=== PATIENT | female | born 1970 | race Two or more races ===

== ENCOUNTER → 2020-07-05 10:41 | Outpatient (BNVA) | payer MEDICAID, SELFPAY | PROVIDERS: PCP Internal Medicine; Referring Provider Internal Medicine; Visit Provider Internal Medicine Gastroenterology | DX: Z01.818 Encounter for other preprocedural examination (principal); R14.0 Abdominal distension (gaseous); R10.9 Unspecified abdominal pain; K76.0 Fatty (change of) liver, not elsewhere classified | CPT/HCPCS: 99212 ==

== ENCOUNTER → 2020-07-23 08:10 | Outpatient (BNVA) | payer MEDICAID, SELFPAY | PROVIDERS: PCP Internal Medicine; Referring Provider Internal Medicine; Visit Provider Surgery | DX: Z76.89 Persons encountering health services in other specified circumstances (principal) ==

== ENCOUNTER → 2020-07-27 10:51 | Outpatient (BNVA) | payer MEDICAID, SELFPAY | PROVIDERS: PCP Internal Medicine; Visit Provider Surgery | DX: Z76.89 Persons encountering health services in other specified circumstances (principal) ==

== ENCOUNTER → 2020-08-04 13:44 | Outpatient (BNVA) | payer MEDICAID, SELFPAY | PROVIDERS: PCP Internal Medicine; Visit Provider Physician Assistant | DX: Z76.89 Persons encountering health services in other specified circumstances (principal) ==

== ENCOUNTER → 2020-08-20 08:04 | Outpatient (BNVA) | payer MEDICAID, SELFPAY | PROVIDERS: PCP Internal Medicine; Referring Provider Internal Medicine; Visit Provider Surgery | DX: Z76.89 Persons encountering health services in other specified circumstances (principal) ==

== ENCOUNTER → 2020-08-27 08:33 | Outpatient (BNVA) | payer MEDICAID, SELFPAY | PROVIDERS: PCP Internal Medicine; Referring Provider Internal Medicine; Visit Provider Dietitian, Registered | DX: Z76.89 Persons encountering health services in other specified circumstances (principal) ==

== ENCOUNTER 2020-09-01 08:57 | Outpatient (REF) | payer MEDICAID, SELFPAY ==
--- NOTE | 2020-09-01 09:01 | US_ITS ---
EXAMINATION: US COMPLETE ABDOMEN WITH LIVER ELASTOGRAPHY CLINICAL INFORMATION: Obesity COMPARISON: Previous exam February 2019 TECHNIQUE: Real-time imaging of the abdominal viscera. Noninvasive ultrasound liver fibrosis assessment is performed using Marilou ElastPQ point quantification shear wave elastography (pSWE) with a 5 MHz transducer. Multiple elastography samples are obtained. FINDINGS: PANCREAS: Normal. The visualized pancreatic head and body are normal in appearance. The remainder of the pancreas is obscured from visualization by the overlying bowel gas. ABDOMINAL AORTA: The proximal, middle, and distal aortic segments are normal in caliber. INFERIOR VENA CAVA: Visualized portions are normal. LIVER: Liver echotexture is increased. The liver is normal in size and contour.. No focal lesion or intrahepatic biliary duct dilatation. The right lobe measures 15.8 cm in length. The left lobe measures 8.8 cm in length. The main portal vein is patent with appropriate hepatopedal flow. Shear wave elastography provides a median stiffness of 1.2 m/s (reference: normal median stiffness is 0.81 - 1.22 m/s). The IQR/median stiffness to assess sampling precision is 0.2 (reference: optimal IQR/median stiffness is under 0.3). GALLBLADDER: Normal. The gallbladder is physiologically distended without evidence of stones, sludge, polyps, wall thickening or pericholecystic fluid. COMMON BILE DUCT: Normal in caliber measuring 0.4 cm in diameter. RIGHT KIDNEY: There is a cyst in the lower pole that measures 4.8 x 4.7 x 4.3 cm. No hydronephrosis. No renal calculi. The kidney measures 10.6 cm in maximum dimension. LEFT KIDNEY: Normal. No hydronephrosis. No renal calculi or focal parenchymal lesions. The kidney measures 10.8 cm in maximum dimension. SPLEEN: Normal. The spleen measures 9.7 cm in maximum dimension. FREE FLUID: None. US/US abdomen comp w elastography IMPRESSION: 1. Impression: Echogenic liver probably representing fatty infiltration. Right renal cyst. 2. Elastography: Metavir score F0 suggestive of no increased risk of developing liver fibrosis.
--- NOTE | 2020-09-01 09:01 | XR_ITS ---
EXAMINATION: XR CHEST CLINICAL INFORMATION: Obesity COMPARISON: Previous chest x-ray May 2020 TECHNIQUE: 2 views of the chest were obtained. FINDINGS: The cardiac and mediastinal contours are normal. The lungs are clear. There is no pleural effusion or pneumothorax. There are degenerative changes of the spine. There is evidence of old trauma to the right distal clavicle with AC separation and ossification along the coracoclavicular ligament that is unchanged. XR/XR chest 2V IMPRESSION: No evidence for acute disease in the chest. Evidence of old trauma to the right clavicle similar to previous exam.
--- NOTE | 2020-09-01 09:01 | FL_ITS ---
EXAMINATION: XR GI SERIES CLINICAL INFORMATION: Obesity COMPARISON: None TECHNIQUE: Upper GI was performed using thin and thick barium and effervescent granules. FINDINGS: Esophageal motility is normal. No esophageal hernia is seen. There is gastroesophageal reflux. The stomach and duodenum are normal-appearing. No fold thickening, mass, ulcer or stricture is seen. FLUOROSCOPY TIME: 0.9 minutes DOSE AREA PRODUCT: 11 bey per centimeter squared. 27 saved fluoroscopic images FL/FL upper GI series IMPRESSION: Gastroesophageal reflux otherwise unremarkable exam
== END 2020-09-01 08:58 | disposition home or self-care (01) ==
LOC: HO.US 08:57
PROVIDERS: Visit Provider Surgery
DX: Z01.818 Encounter for other preprocedural examination (principal); K76.0 Fatty (change of) liver, not elsewhere classified; E66.01 Morbid (severe) obesity due to excess calories; K21.9 Gastro-esophageal reflux disease without esophagitis
CPT/HCPCS: 71046; 74240; 76705; 76981

== ENCOUNTER 2020-09-16 09:43 | Day surgery (SDC) | payer MEDICAID, SELFPAY ==
[2020-09-09 10:12] VITALS: BMI 40.6
--- NOTE | 2020-09-14 14:18 | HO.ANESPROP2 ---
Documented by User: Aide Mcnair 09/14/20 14:18 HPI - Anesthesia Eval Consult details Narrative: 50yo F for Colonoscopy [facility] Past Medical History Medical History Cigarette smoker Hepatic steatosis Obesity (BMI 30-39.9) Screening for colon cancer Family History Family History Brother Cancer Father Diabetes Mother Diabetes HTN (hypertension) Heart problem Family/Other Diabetes Surgical History Surgical History Hx of tonsillectomy Morbid obesity Social History Social History Alcohol intake: current Alcohol intake frequency: does not drink Smoking Status: Current every day smoker Tobacco Type: Cigarette Packs Per Day: 0.5 Cigarettes Per Day: 10.0 Advance Directives: No Advance Directives Information Provided: Yes Meds Allergies Allergy/AdvReac Type Severity Reaction Status Date / Time No Known Allergies [NKA] Allergy Verified 07/27/20 12:43 Home Medications Medication Instructions Recorded Confirmed Type magnesium oxide 400 mg PO DAILY 07/05/20 07/27/20 History acetaminophen 650 mg 650 mg PO Q8H 07/27/20 07/27/20 History tablet,extended release cyclobenzaprine 10 mg tablet 10 mg PO TID 07/27/20 07/27/20 History hydroxyzine HCl 25 mg tablet 25 mg PO BEDTIME 07/27/20 07/27/20 History Exam Exam Date and Time: September 14, 2020 1418 Height,Weight and Vital Signs: Height 5 ft 2 in Weight 100.698 kg Assessment and Plan Assessment Anesthesia Assessment: Chart Reviewed Documented by User: Bibi Traore 09/16/20 10:14 [facility] Past Medical History Medical History Cigarette smoker Hepatic steatosis Obesity (BMI 30-39.9) Screening for colon cancer Family History Family History Brother Cancer Father Diabetes Mother Diabetes HTN (hypertension) Heart problem Family/Other Diabetes Surgical History Surgical History Hx of tonsillectomy Morbid obesity Social History Social History Alcohol intake: current Alcohol intake frequency: does not drink Smoking Status: Current every day smoker Tobacco Type: Cigarette Packs Per Day: 0.5 Cigarettes Per Day: 10.0 Advance Directives: No Advance Directives Information Provided: Yes Meds Allergies Allergy/AdvReac Type Severity Reaction Status Date / Time No Known Allergies [NKA] Allergy Verified 07/27/20 12:43 Home Medications Medication Instructions Recorded Confirmed Type magnesium oxide 400 mg PO DAILY 07/05/20 07/27/20 History acetaminophen 650 mg 650 mg PO Q8H 07/27/20 07/27/20 History tablet,extended release cyclobenzaprine 10 mg tablet 10 mg PO TID 07/27/20 07/27/20 History hydroxyzine HCl 25 mg tablet 25 mg PO BEDTIME 07/27/20 07/27/20 History Exam Airway Mallampati Class: II TM Dist: >3cm Loose/Missing/Broken Teeth: No Heart: RRR Lungs: CTA Assessment and Plan Assessment Anesthesia Assessment: Anesthesia Plan Discussed and Chart Reviewed Final Anesthetic Review NPO: Yes ASA Class: II Final Preanesthetic Review: Meds/Allgs Chart Reviewed, Consent Obtained/Reviewed and Anes Risks/Benef Reviewed Patient Risk: Intermediate Procedure Risk: Low Anesthetic Plan Anesthetic Plan: MAC: Disposition: Standard PACU
--- NOTE | 2020-09-16 10:11 | MHC.SHP ---
Pre-Procedural Eval Section B Chief Complaint: Abdominal Distension, Screening Details of Present Illness: Colon Cancer screening Relevant Family History (Specify if Yes): No Relevant Social History: Tobacco Use (1/2ppd) Present Medications: see Short Stay Collaborative assessment Medical History: Significant History (Cigarette smoker, Morbid Obesity, Hepatic steatosis) History of Previous Operations: No relevant previous surgery Allergies: Allergies Allergy/AdvReac Type Severity Reaction Status Date / Time No Known Allergies [NKA] Allergy Verified 07/27/20 12:43 Review of Systems Sugical H&P ROS: Negative: Constitution, Cardiovascular, Respiratory and Gastrointestinal Exam Surgical H&P Exam: Normal: HEENT, Normal: Heart, Normal: Lungs and Normal: Extremities and Significant Findings: Abdomen (Central obesity) Plan Diagnosis/Plan: Unchanged I have reviewed the history and physical and performed a pertinent physical examination on my patient. No changes have occurred unless specified.YES
[2020-09-16 10:13] LABS: Glucose, Whole Blood 111 mg/dL (60-115)
[2020-09-16 10:16] VITALS: BP 125/76; PULSE 90; RESP 18; TEMP 36.2; O2SAT 97
[2020-09-16] MEDS: Lactated Ringers 1,000 ML 100 ML IVCONT (10:21)
--- NOTE | 2020-09-16 11:06 | PM.PROC ---
Brief Operative Note Date of procedure: 09/16/20 Pre-op diagnosis: COLON CANCER SCREENING Post-op diagnosis: other (COLON POLYPS) Procedure: COLONOSCOPY WITH EPI INJECTION TOTAL 7 CC,--2 LOCATIONS--HOT SNARE POLYPECTOMY X2 REMOVED AND RETRIEVED. Anesthesia: MAC (SUGEY RICKETTS) Surgeon: Lindsay Ann Estimated blood loss (mL): 10 Pathology: other (18CM; 13CM) Condition: stable Disposition: PACU
[2020-09-16 11:08] VITALS: BP 106/81; PULSE 102; RESP 16; TEMP 36.1; O2SAT 95
[2020-09-16 11:23] VITALS: BP 108/60; PULSE 92; RESP 16; TEMP 36.4; O2SAT 96
--- NOTE | 2020-09-18 11:46 | OP_ITS ---
SURGEON: Lindsay Ann MD INDICATIONS: The patient is preoperatively seen for colon cancer screening, non high-risk. POSTOPERATIVE DIAGNOSIS: Polyps, colonic ESTIMATED BLOOD LOSS: Less than 10 mL. COMPLICATIONS: No complications. ANESTHESIA: Monitored, ANESTHESIOLOGIST: Juan M Zamorano CRNA. ASSISTANTS: No technology assistant. SPECIMENS: Removed 18 cm polyp, 13 cm polyp. IV TECHNICIAN: Dr. Ann. PROCEDURES PERFORMED: Colonoscopy with epinephrine injection submucosally, total 7 mL in 2 locations, hot snare polypectomy x2. CONDITION: Postop, stable. FINDINGS: Digital rectal exam revealed no specific lesion. Video colonoscope was introduced without difficulty. It was navigated into the rectosigmoid sigmoid in progress through sigmoid, descending, transverse, ascending colon down into the cecum. Appendiceal orifice was seen. Ileocecal valve was well seen. No mucosal abnormalities were appreciated. Prep for this procedure was good to excellent. Slow withdrawal of scope. Good rotational views. Polyp was identified at 18 cm with variable cryptic pattern. Submucosal epinephrine injection and a hot snare polypectomy technique were used to be remove polyp. Similar polyp at 13 cm was removed as well. The bases of both polyps were clear. No additional lesions were seen. Anorectal verge was clear. PLAN AND CURRENT RECOMMENDATIONS: Repeat asymptomatic screening in this patient will be 5 years even if these are hyperplastic polyps because of the variable nature of the cryptic pattern in these polyps. GRAFT OR IMPLANTS: No grafts or implants. Lindsay Ann MD MEN/MODL / [id number] MTDD
== END 2020-09-16 12:51 | disposition home or self-care (01) ==
PROVIDERS: PCP Internal Medicine; Visit Provider Internal Medicine Gastroenterology
PROC: 0DJD8ZZ Inspection of Lower Intestinal Tract, Via Natural or Artificial Opening Endoscopic (ICD-10-PCS; CPT 45378; principal; 2020-09-16 11:10)
DX: Z12.11 Encounter for screening for malignant neoplasm of colon (principal); R14.0 Abdominal distension (gaseous); K63.5 Polyp of colon; K76.0 Fatty (change of) liver, not elsewhere classified; F17.210 Nicotine dependence, cigarettes, uncomplicated; Z79.899 Other long term (current) drug therapy
CPT/HCPCS: 45385; 45381; 82947; 88305; J0171

== ENCOUNTER → 2020-09-20 08:25 | Outpatient (BNVA) | payer MEDICAID, SELFPAY | PROVIDERS: PCP Internal Medicine; Visit Provider Surgery | DX: Z76.89 Persons encountering health services in other specified circumstances (principal) ==

== ENCOUNTER → 2020-09-24 08:09 | Outpatient (BNVA) | payer MEDICAID, SELFPAY | PROVIDERS: PCP Internal Medicine; Visit Provider Dietitian, Registered | DX: Z76.89 Persons encountering health services in other specified circumstances (principal) ==

== ENCOUNTER → 2020-10-08 08:29 | Outpatient (BNVA) | payer MEDICAID, SELFPAY | PROVIDERS: PCP Internal Medicine; Visit Provider Surgery ==

== ENCOUNTER → 2020-10-20 13:29 | Outpatient (BNVA) | payer MEDICAID, SELFPAY | PROVIDERS: PCP Internal Medicine; Visit Provider Nurse Practitioner Family ==

== ENCOUNTER → 2020-10-29 08:26 | Outpatient (BNVA) | payer MEDICAID, SELFPAY | PROVIDERS: PCP Internal Medicine; Visit Provider Dietitian, Registered ==

== ENCOUNTER 2020-11-24 08:53 | Emergency (ER) | payer MEDICAID, SELFPAY ==
[2020-11-24 08:59] VITALS: BP 109/57; PULSE 74; RESP 20; TEMP 36.7; O2SAT 98; BMI 42.0
--- NOTE | 2020-11-24 09:06 | ED.PSYCH ---
HPI - Psych General Chief Complaint: Chest Pain Stated Complaint: anxiety x1week Time Seen by Provider: 11/24/20 09:03 Source: patient Mode of arrival: ambulatory Limitations: no limitations History of Present Illness HPI Narrative: Patient with increased stress and anxiety no known cardiac history began complaining of chest pain off and on and on exertion with increased shortness of breath Related Data Home Medications Medication Instructions Recorded Confirmed acetaminophen 650 mg 650 mg PO Q8H 07/27/20 10/20/20 tablet,extended release cyclobenzaprine 10 mg tablet 10 mg PO TID 07/27/20 07/27/20 hydroxyzine HCl 25 mg tablet 25 mg PO BEDTIME 07/27/20 10/20/20 Previous Rx's Medication Instructions Recorded vitamin E (dl, acetate) 400 unit 400 unit PO BID 30 Days #60 cap 07/28/20 capsule bisacodyl 5 mg tablet,delayed 10 mg PO ONCE 1 Days #2 tab 08/30/20 release polyethylene glycol 3350 17 238 g PO ONCE 1 Days #238 g 08/30/20 gram/dose oral powder docusate sodium 100 mg capsule 100 mg PO DAILY #30 cap 10/20/20 magnesium oxide 400 mg PO DAILY #30 cap 10/20/20 omeprazole 20 mg capsule,delayed 20 mg PO DAILY #30 cap 10/20/20 release simethicone 125 mg capsule 125 mg PO TID-QID PRN #120 cap 10/20/20 Allergies Allergy/AdvReac Type Severity Reaction Status Date / Time No Known Allergies [NKA] Allergy Verified 10/20/20 13:30 [facility] Past Medical History Medical History Chronic idiopathic constipation Cigarette smoker Hepatic steatosis Obesity (BMI 30-39.9) Screening for colon cancer Surgical History H/O colonoscopy Hx of tonsillectomy Morbid obesity Family History Family History Brother Cancer Father Diabetes Mother Diabetes HTN (hypertension) Heart problem Family/Other Diabetes Social History Social History (Updated 10/20/20 @ 13:32 by Alissa Vargas) Household Members: Children Alcohol intake: current Alcohol intake frequency: does not drink Smoking Status: Current every day smoker Tobacco Type: Cigarette Packs Per Day: 0.5 Cigarettes Per Day: 10.0 Advance Directives: No Advance Directives Information Provided: Yes Physical Exam Vital Signs: Vital Signs: Last Vital Signs Temp 98.0 F 11/24/20 08:59 Pulse 74 11/24/20 08:59 Resp 20 11/24/20 08:59 BP 109/57 L 11/24/20 08:59 Pulse Ox 98 11/24/20 08:59 Body Mass Index 42.0 MDM - Psych Medical Records Attestation: I reviewed the patient's medical records. Lab Data Attestation: I reviewed the patient's lab results. Result diagrams: 11/24/20 09:33 11/24/20 09:33 Labs: Lab Results 11/24/20 Range/Units 09:33 WBC 6.3 (4.8-10.8) X10*3/uL RBC 4.15 L (4.20-5.50) X10*6/uL Hgb 12.9 (12.0-16.0) g/dl Hct 39.5 (37-47) % MCV 95.2 (80-98) fL MCH 31.1 (27.0-33.0) pg MCHC 32.7 (31.0-35.0) g/dl RDW 11.9 (11.0-16.0) % Plt Count 141 L (160-400) X10*3/uL MPV 13.2 H (9.4-12.3) fL Immature Gran % (Auto) 0.2 (0.0-0.4) % Neut % (Auto) 47.2 (45-73) % Lymph % (Auto) 42.7 H (20-40) % [place] % (Auto) 8.2 (2-11) % Eos % (Auto) 1.4 (0-4) % Baso % (Auto) 0.3 (0-2) % Lymph # (Auto) 2.7 (1.2-4.9) X10*3/uL [place] # (Auto) 0.5 (0.1-1.2) X10*3/uL Eos # (Auto) 0.1 (0.0-0.4) X10*3/uL Baso # (Auto) 0.0 (0.0-0.2) X10*3/uL Abs Immat Gran (auto) 0.01 (0.00-0.03) X10*3/uL Absolute Neuts (auto) 3.0 (2.0-8.3) X10*3/uL Absolute Nucleated RBC 0.000 (0.0-0.012) X10*3/uL Nucleated RBC % (auto) 0.0 (0.0-0.2) /100WBC Smear Tech's Comments VERIFIED ECG Data Attestation: I personally reviewed and interpreted this ECG as follows: Interpretation: Normal sinus rhythm heart rate of 70 beats per minute normal intervals and normal axis no acute ischemia Discharge Plan Discharge Prescriptions: No Action vitamin E (dl, acetate) 400 unit capsule 400 unit PO BID 30 Days Qty: 60 RF: 3 bisacodyl [Dulcolax (bisacodyl)] 5 mg tablet,delayed release (DR/EC) 10 mg PO ONCE 1 Days Qty: 2 RF: 0 polyethylene glycol 3350 [Miralax] 17 gram/dose powder 238 g PO ONCE 1 Days Qty: 238 RF: 0 simethicone [Gas Relief (simethicone)] 125 mg capsule 125 mg PO TID-QID PRN (Reason: abdominal distention) Qty: 120 RF: 2 omeprazole 20 mg capsule,delayed release(DR/EC) 20 mg PO DAILY Qty: 30 RF: 3 magnesium oxide 400 mg magnesium capsule 400 mg PO DAILY Qty: 30 RF: 2 docusate sodium 100 mg capsule 100 mg PO DAILY Qty: 30 RF: 3 cyclobenzaprine 10 mg tablet 10 mg PO TID RF: 0 hydroxyzine HCl 25 mg tablet 25 mg PO BEDTIME RF: 0 acetaminophen [Mapap Arthritis Pain] 650 mg tablet extended release 650 mg PO Q8H RF: 0
--- NOTE | 2020-11-24 09:15 | ECG_ITS ---
Test Reason : CHEST PAIN Blood Pressure : / mmHG Vent. Rate : 070 BPM Atrial Rate : 070 BPM P-R Int : 100 ms QRS Dur : 076 ms QT Int : 386 ms P-R-T Axes : 036 035 061 degrees QTc Int : 416 ms Sinus rhythm with short [place] Otherwise normal ECG When compared with ECG of 24-MAY-2020 15:35, [place] interval has decreased Nonspecific T wave abnormality no longer evident in Anterior leads Referred By: Justin Saxena Electronically Signed By:FELISHA JACKSON MD
[2020-11-24 09:43] LABS: Basophils Percent Auto 0.3 % (0-2); Eosinophils Absolute Auto 0.1 X10*3/uL (0.0-0.4); Imm Gran Abs Auto 0.01 X10*3/uL (0.00-0.03); Imm Gran Pct Auto 0.2 % (0.0-0.4); MANUAL DIFF FLAG SCAN; Mean Corpuscular HGB Conc 32.7 g/dl (31.0-35.0); Mean Corpuscular Hemoglobin 31.1 pg (27.0-33.0); Mean Platelet Volume 13.2 fL (9.4-12.3); SCAN SMEAR FLAG 1
[2020-11-24 09:45] LABS: Eosinophils Percent Auto 1.4 % (0-4); Hematocrit 39.5 % (37-47); Hemoglobin 12.9 g/dl (12.0-16.0); Lymphocytes Absolute Auto 2.7 X10*3/uL (1.2-4.9); Lymphocytes Percent Auto 42.7 % (20-40); Mean Corpuscular Volume 95.2 fL (80-98); Monocytes Absolute Auto 0.5 X10*3/uL (0.1-1.2); Monocytes Percent Auto 8.2 % (2-11); Neutrophils Percent Auto 47.2 % (45-73); Red Blood Count 4.15 X10*6/uL (4.20-5.50); Red Cell Distribution Width 11.9 % (11.0-16.0); White Blood Count 6.3 X10*3/uL (4.8-10.8)
[2020-11-24 09:46] LABS: PLT ABN DIST 1
[2020-11-24 10:02] LABS: Platelet Count 141 X10*3/uL (160-400); SLIDE REVIEW VERIFIED
[2020-11-24 10:14] LABS: Troponin-I High Sensitivity < 3.5 ng/L (<3.5-17.0)
[2020-11-24 10:17] LABS: Alanine Aminotransferase 29 U/L (0-31); Alkaline Phosphatase 74 U/L (39-117); Anion Gap 12 (12-20); Aspartate Amino Transferase 32 U/L (5-31); Bilirubin Direct < 0.2 mg/dL (0.0-0.5); Bilirubin Total 0.4 mg/dL (0.0-1.0); Blood Urea Nitrogen 15 mg/dL (9-16); Calcium 8.9 mg/dL (8.4-10.2); Carbon Dioxide 24 mmol/L (22-29); Chloride 108 mmol/L (96-108); Creatinine Clr Calc Pharmacy 64.6; Estimated Glomerular Filt Rate 48; Glucose Random 118 mg/dL (60-115); Lipase 65 U/L (8-78); Potassium 4.3 mmol/L (3.3-5.1); Sodium 140 mmol/L (135-145); Total Protein 6.9 g/dL (6.5-8.0)
[2020-11-24 10:23] LABS: B Type Natriuretic Peptide 18 pg/mL (<100)
--- NOTE | 2020-11-24 10:56 | ED.CHESTPAIN ---
HPI - Chest Pain General Chief Complaint: Chest Pain Stated Complaint: anxiety x1week Time Seen by Provider: 11/24/20 09:03 Source: patient Mode of arrival: ambulatory Limitations: no limitations History of Present Illness HPI narrative: Patient no known cardiac disease history gastric reflux disease on Prilosec which she is not taking every day , comes here for midsternal chest pain shortly after eating for last 1 week patient had ultrasound done in 08/29 which was negative for gallstones. 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 patient also under lot of stress lately MD complaint: chest discomfort Onset (ago): week(s) (1) Timing of current episode: episodic Prior episodes: Yes Onset: during rest Pain location: substernal Pain radiation: none Severity: mild Quality: heaviness Risk Factors Coronary artery disease risk factors: none Related Data Home Medications Medication Instructions Recorded Confirmed acetaminophen 650 mg 650 mg PO Q8H 07/27/20 10/20/20 tablet,extended release cyclobenzaprine 10 mg tablet 10 mg PO TID 07/27/20 07/27/20 hydroxyzine HCl 25 mg tablet 25 mg PO BEDTIME 07/27/20 10/20/20 Previous Rx's Medication Instructions Recorded vitamin E (dl, acetate) 400 unit 400 unit PO BID 30 Days #60 cap 07/28/20 capsule bisacodyl 5 mg tablet,delayed 10 mg PO ONCE 1 Days #2 tab 08/30/20 release polyethylene glycol 3350 17 238 g PO ONCE 1 Days #238 g 08/30/20 gram/dose oral powder docusate sodium 100 mg capsule 100 mg PO DAILY #30 cap 10/20/20 magnesium oxide 400 mg PO DAILY #30 cap 10/20/20 omeprazole 20 mg capsule,delayed 20 mg PO DAILY #30 cap 10/20/20 release simethicone 125 mg capsule 125 mg PO TID-QID PRN #120 cap 10/20/20 Allergies Allergy/AdvReac Type Severity Reaction Status Date / Time No Known Allergies [NKA] Allergy Verified 10/20/20 13:30 Review of Systems Review of Systems: Constitutional : No Weight loss, No Fever, No Chills ENT/Mouth : No sore throat, No Rhinorrhea Eyes: No Eye Pain, No Swelling Cardiovascular : + Chest Pain, no palpitations Respiratory : No Cough, No Sputum, no shortness of breath Gastrointestinal : +Nausea, No Vomiting, No Diarrhea, No abdominal Pain, no black stools Genitourinary : No Dysuria, No Urinary Frequency Musculoskeletal : No joint pain, No Myalgias, No Joint Swelling Skin : No Skin Lesions, No rash Neuro : No Weakness, No Numbness, No Dizziness, No Headache Psych : No Anxiety/Panic, No Depression Heme/Lymph: No Bruising, No Lymphadenopathy Endocrine : No Polyuria, No Polydipsia All other systems reviewed and are negative [facility] Past Medical History Medical History Chronic idiopathic constipation Cigarette smoker Hepatic steatosis Obesity (BMI 30-39.9) Screening for colon cancer Surgical History H/O colonoscopy Hx of tonsillectomy Morbid obesity Family History Family History Brother Cancer Father Diabetes Mother Diabetes HTN (hypertension) Heart problem Family/Other Diabetes Social History Social History Household Members: Children Alcohol intake: current Alcohol intake frequency: does not drink Smoking Status: Current every day smoker Tobacco Type: Cigarette Packs Per Day: 0.5 Cigarettes Per Day: 10.0 Advance Directives: No Advance Directives Information Provided: Yes Physical Exam Vital Signs: Vital Signs: Last Vital Signs Temp 98.0 F 11/24/20 08:59 Pulse 74 11/24/20 08:59 Resp 20 11/24/20 08:59 BP 109/57 L 11/24/20 08:59 Pulse Ox 98 11/24/20 08:59 Body Mass Index 42.0 Appearance: Alert. Oriented X3. No acute distress. Anxious Eyes: Pupils equal, round and reactive to light. ENT: Pharynx normal. Neck: Normal inspection. Neck supple. CVS: Normal heart rate and rhythm. Pulses normal. Respiratory: No respiratory distress. Breath sounds normal. Abdomen: Soft and nontender. Bowel sounds are present, no mass palpable, no CVA tenderness Skin: Skin warm and dry. Normal skin color. Normal skin turgor. Extremities: No lower extremity edema. Neuro: Oriented X 3. No motor deficit. No sensory deficit. Course Course Course Narrative: Patient has atypical chest pain for last 1 week also complaining of shortness of breath on exertion will do the workup Patient workup is negative for any CHF cardiac enzymes are negative EKG without any acute ischemic changes patient has chronic gastric reflux problem. Will reassure patient to start taking Prilosec will add sucralfate. advised to follow with machine plug shaper MDM - Chest Pain Differential Diagnosis Differential diagnosis: Likely atypical chest pain Medical Records Data Attestation: I reviewed the patient's medical records. Lab Data Attestation: I reviewed the patient's lab results. Result diagrams: 11/24/20 09:33 11/24/20 09:33 Labs: Lab Results 11/24/20 11/24/20 11/24/20 Range/Units 09:33 09:33 09:33 WBC 6.3 (4.8-10.8) X10*3/uL RBC 4.15 L (4.20-5.50) X10*6/uL Hgb 12.9 (12.0-16.0) g/dl Hct 39.5 (37-47) % MCV 95.2 (80-98) fL MCH 31.1 (27.0-33.0) pg MCHC 32.7 (31.0-35.0) g/dl RDW 11.9 (11.0-16.0) % Plt Count 141 L (160-400) X10*3/uL MPV 13.2 H (9.4-12.3) fL Immature Gran % (Auto) 0.2 (0.0-0.4) % Neut % (Auto) 47.2 (45-73) % Lymph % (Auto) 42.7 H (20-40) % [place] % (Auto) 8.2 (2-11) % Eos % (Auto) 1.4 (0-4) % Baso % (Auto) 0.3 (0-2) % Lymph # (Auto) 2.7 (1.2-4.9) X10*3/uL [place] # (Auto) 0.5 (0.1-1.2) X10*3/uL Eos # (Auto) 0.1 (0.0-0.4) X10*3/uL Baso # (Auto) 0.0 (0.0-0.2) X10*3/uL Abs Immat Gran (auto) 0.01 (0.00-0.03) X10*3/uL Absolute Neuts (auto) 3.0 (2.0-8.3) X10*3/uL Absolute Nucleated RBC 0.000 (0.0-0.012) X10*3/uL Nucleated RBC % (auto) 0.0 (0.0-0.2) /100WBC Smear Tech's Comments VERIFIED Sodium 140 (135-145) mmol/L Potassium 4.3 (3.3-5.1) mmol/L Chloride 108 (96-108) mmol/L Carbon Dioxide 24 (22-29) mmol/L Anion Gap 12 (12-20) BUN 15 (9-16) mg/dL Creatinine 1.18 (0.5-1.4) mg/dL Estim Creat Clear Calc 64.6 Estimated GFR 48 Random Glucose 118 H (60-115) mg/dL Calcium 8.9 (8.4-10.2) mg/dL Total Bilirubin 0.4 (0.0-1.0) mg/dL Direct Bilirubin < 0.2 (0.0-0.5) mg/dL AST 32 H (5-31) U/L ALT 29 (0-31) U/L Alkaline Phosphatase 74 (39-117) U/L Troponin I High Sens < 3.5 (<3.5-17.0) ng/L B-Natriuretic Peptide 18 (<100) pg/mL Total Protein 6.9 (6.5-8.0) g/dL Albumin 4.0 (3.5-5.0) g/dL Lipase 65 (8-78) U/L ECG Data ECG #1: Attestation: I personally reviewed and interpreted this ECG as follows: Interpretation: Normal sinus rhythm heart rate 70 beats per minute normal intervals normal axis no acute ST T wave changes impression no acute ischemia Discharge Plan Discharge Prescriptions: No Action vitamin E (dl, acetate) 400 unit capsule 400 unit PO BID 30 Days Qty: 60 RF: 3 bisacodyl [Dulcolax (bisacodyl)] 5 mg tablet,delayed release (DR/EC) 10 mg PO ONCE 1 Days Qty: 2 RF: 0 polyethylene glycol 3350 [Miralax] 17 gram/dose powder 238 g PO ONCE 1 Days Qty: 238 RF: 0 simethicone [Gas Relief (simethicone)] 125 mg capsule 125 mg PO TID-QID PRN (Reason: abdominal distention) Qty: 120 RF: 2 omeprazole 20 mg capsule,delayed release(DR/EC) 20 mg PO DAILY Qty: 30 RF: 3 magnesium oxide 400 mg magnesium capsule 400 mg PO DAILY Qty: 30 RF: 2 docusate sodium 100 mg capsule 100 mg PO DAILY Qty: 30 RF: 3 cyclobenzaprine 10 mg tablet 10 mg PO TID RF: 0 hydroxyzine HCl 25 mg tablet 25 mg PO BEDTIME RF: 0 acetaminophen [Mapap Arthritis Pain] 650 mg tablet extended release 650 mg PO Q8H RF: 0
[2020-11-24] MEDS: Omeprazole 40 MG CAPSULE.DR PO (11:35)
[2020-11-24] MEDS: Magnesium Hydrox/Alum Hydrox 30 ML ORAL.SUSP PO (11:35)
== END 2020-11-24 11:45 | disposition home or self-care (01) ==
PROVIDERS: Emergency Provider Internal Medicine; PCP Internal Medicine
DX: R07.89 Other chest pain (principal); K21.9 Gastro-esophageal reflux disease without esophagitis; Z79.899 Other long term (current) drug therapy; F17.210 Nicotine dependence, cigarettes, uncomplicated
CPT/HCPCS: 36415; 80048; 80076; 83690; 83880; 84484; 85025; 93005; 99283

== ENCOUNTER 2020-12-06 21:27 | Emergency (ER) | payer MEDICAID, SELFPAY ==
--- NOTE | ~2020-12-06 | CT_ITS ---
EXAMINATION: CT ABDOMEN AND PELVIS WITHOUT CONTRAST CLINICAL INFORMATION: Abdominal pain COMPARISON: Abdominal ultrasound 09/01/2020 TECHNIQUE: Multidetector volumetric imaging was performed from the superior aspect of the liver through the pubic symphysis. Sagittal and coronal reformatted images were obtained on the technologist's workstation. This CT examination was performed using dose optimization techniques as appropriate, variously including the following: *Automated exposure control *Adjustment of mA and/or kV according to patient size (this includes techniques or standardized protocols for targeted exams where dose is matched to indication/reason for exam; i.e. extremities or head) *Use of iterative reconstruction technique DLP: 785 mGy-cm FINDINGS: LUNG BASES: Some chronic reticulonodular findings are present at the lung bases with lingular and right middle lobe atelectasis or scarring. No pleural effusions are seen. LIVER, GALLBLADDER, AND BILIARY TREE: The liver is normal in size, shape, and attenuation. No focal hepatic lesion or biliary ductal dilatation is present. The gallbladder is contracted but otherwise unremarkable with no evidence of radiopaque gallstones, gallbladder wall thickening, or obvious pericholecystic inflammatory changes. PANCREAS: Unremarkable. SPLEEN: Unremarkable. ADRENAL GLANDS: Unremarkable. KIDNEYS AND URETERS: The kidneys are normal in size, shape, and attenuation. A 5.7 cm right lower pole renal cyst is present. No hydronephrosis, hydroureter, or calculi seen. No perinephric stranding. BLADDER: Unremarkable. . GASTROINTESTINAL TRACT: A small hiatal hernia is present. In the sigmoid colon, there is an area of marked mucosal thickening and inflammatory changes extending from the colon tethering some small bowel loops with tenting of the adnexa. Findings are consistent with acute diverticulitis. An underlying neoplasm cannot be entirely excluded and follow-up imaging/colonoscopy is recommended after treatment. No extraluminal air is seen. A small amount of free fluid is present in the pelvis. No pericolonic abscess is identified. The small and large bowel are unremarkable. The appendix is unremarkable. ABDOMINAL WALL: No significant hernia is appreciated. LYMPH NODES: Some small pericolonic lymph nodes are seen but there is no retroperitoneal lymphadenopathy. Small bilateral inguinal nodes are present as well. VASCULAR: Unremarkable. PELVIC VISCERA: A retroverted uterus is present. An abnormal adnexal mass is not seen. A small amount of free fluid is present in the pelvis. OSSEOUS STRUCTURES: Unremarkable. CT/CT abdomen pelvis wo con IMPRESSION: Thickened segment of sigmoid with marked inflammatory changes and some diverticula are seen. Findings are suggestive of acute diverticulitis. No extraluminal air or surrounding abscess is seen. A small amount of free fluid is present in the cul-de-sac. Other incidental findings as described above.
[2020-12-06 21:57] VITALS: BP 131/73; BP 138/86; PULSE 80; PULSE 89; RESP 14; TEMP 36.6; O2SAT 99; BMI 42.0
[2020-12-06 22:19] LABS: MANUAL DIFF FLAG NO
[2020-12-06 22:21] LABS: Basophils Percent Auto 0.2 % (0-2); Eosinophils Absolute Auto 0.1 X10*3/uL (0.0-0.4); Eosinophils Percent Auto 1.2 % (0-4); Hematocrit 37.7 % (37-47); Hemoglobin 12.1 g/dl (12.0-16.0); Imm Gran Abs Auto 0.04 X10*3/uL (0.00-0.03); Imm Gran Pct Auto 0.3 % (0.0-0.4); Lymphocytes Absolute Auto 2.4 X10*3/uL (1.2-4.9); Lymphocytes Percent Auto 21.1 % (20-40); Mean Corpuscular HGB Conc 32.1 g/dl (31.0-35.0); Mean Corpuscular Hemoglobin 30.9 pg (27.0-33.0); Mean Corpuscular Volume 96.4 fL (80-98); Mean Platelet Volume 11.8 fL (9.4-12.3); Monocytes Absolute Auto 0.9 X10*3/uL (0.1-1.2); Neutrophils Absolute Auto 7.9 X10*3/uL (2.0-8.3); Neutrophils Percent Auto 69.2 % (45-73); Platelet Count 237 X10*3/uL (160-400); Red Blood Count 3.91 X10*6/uL (4.20-5.50); Red Cell Distribution Width 11.9 % (11.0-16.0); White Blood Count 11.5 X10*3/uL (4.8-10.8)
[2020-12-06 22:22] LABS: Color Urine DARK YELLOW; Glucose Urine UA 100 MG/DL (NEG); Leukocyte Esterase Urine NEG (NEG); Nitrite Urine POS (NEG); PH 6.5 (5.0-8.0); Specific Gravity - Urine 1.015 (1.005-1.025); UACC Culture Trigger YES; Urine Blood 2+ (NEG); Urine Ketones NEG (NEG); Urine Protein 1+ MG/DL (NEG-TRACE)
[2020-12-06 22:23] LABS: Appearance Urine CLEAR
[2020-12-06 22:39] LABS: Bacteria Urine TRACE /LPF; Squamous Epithelial Cell Urine TRACE /LPF; WBC Urine 0 /HPF (0-4)
[2020-12-06 22:51] LABS: Alanine Aminotransferase 28 U/L (0-31); Albumin Level 4.2 g/dL (3.5-5.0); Alkaline Phosphatase 85 U/L (39-117); Anion Gap 17 (12-20); Aspartate Amino Transferase 27 U/L (5-31); Bilirubin Total 0.3 mg/dL (0.0-1.0); Blood Urea Nitrogen 13 mg/dL (9-16); Calcium 9.2 mg/dL (8.4-10.2); Carbon Dioxide 24 mmol/L (22-29); Chloride 104 mmol/L (96-108); Creatinine Clr Calc Pharmacy 71.9; Estimated Glomerular Filt Rate 55; Glucose Random 113 mg/dL (60-115); Potassium 3.9 mmol/L (3.3-5.1); Sodium 141 mmol/L (135-145); Total Protein 7.5 g/dL (6.5-8.0)
--- NOTE | 2020-12-06 23:39 | ED.FEMALEGU ---
HPI - Female Genitourinary General Chief complaint: Urogenital-Female Stated complaint: PAIN ? UTI Time Seen by Provider: 12/06/20 23:35 History of Present Illness HPI Narrative: Patient is 50 years old presented today with having abdominal pain has been ongoing since Sunday. Burning on urination. No large bowel movement. Patient complaining of no fever no chills. No cough no congestion or upper respiratory symptoms. No flank pain. No history of kidney stones. No vaginal bleeding. No nausea vomiting. Patient is from home. No vaginal discharge. Pain is 01/17 Related Data Home Medications Medication Instructions Recorded Confirmed acetaminophen 650 mg 650 mg PO Q8H 07/27/20 10/20/20 tablet,extended release cyclobenzaprine 10 mg tablet 10 mg PO TID 07/27/20 07/27/20 hydroxyzine HCl 25 mg tablet 25 mg PO BEDTIME 07/27/20 10/20/20 Previous Rx's Medication Instructions Recorded vitamin E (dl, acetate) 400 unit 400 unit PO BID 30 Days #60 cap 07/28/20 capsule bisacodyl 5 mg tablet,delayed 10 mg PO ONCE 1 Days #2 tab 08/30/20 release polyethylene glycol 3350 17 238 g PO ONCE 1 Days #238 g 08/30/20 gram/dose oral powder docusate sodium 100 mg capsule 100 mg PO DAILY #30 cap 10/20/20 magnesium oxide 400 mg PO DAILY #30 cap 10/20/20 omeprazole 20 mg capsule,delayed 20 mg PO DAILY #30 cap 10/20/20 release simethicone 125 mg capsule 125 mg PO TID-QID PRN #120 cap 10/20/20 sucralfate 1 g PO TID #90 tab 11/24/20 amoxicillin-pot clavulanate 1 tab PO Q12H 10 Days #20 tab 12/07/20 [Augmentin] Allergies Allergy/AdvReac Type Severity Reaction Status Date / Time No Known Allergies [NKA] Allergy Verified 10/20/20 13:30 Review of Systems Review of Systems: Constitutional: No Weight loss, No Fever, No Chills, No Night Sweats, No Fatigue, No Malaise ENT/Mouth: No Hearing loss, No Ear Pain, No Nasal Congestion, No Sinus Pain, No Hoarseness, No sore throat, No Rhinorrhea, No Swallowing Difficulty Eyes: No Eye Pain, No Swelling, No Redness, No Foreign Body, No Discharge, No Vision Changes Cardiovascular: No Chest Pain, No SOB, No Dyspnea on Exertion, No Orthopnea, No Edema, No Palpitations Respiratory: No Cough, No Sputum, No Wheezing, No Smoke Exposure, No Dyspnea Gastrointestinal: No Nausea, No Vomiting, No Diarrhea, No Constipation, No abdominal Pain, No Hematochezia, No Melena Genitourinary: no irregular bleeding, No Dysuria, No Urinary Frequency, No Hematuria, No Urinary Incontinence, No Urgency, No Flank Pain, No Urinary Flow Changes, No Hesitancy Musculoskeletal: No joint pain, No Myalgias, No Joint Swelling Skin: No Skin Lesions, No rash Neuro: No Weakness, No Numbness, No Paresthesias, No Loss of Consciousness, No Dizziness, No Headache Psych: No Anxiety/Panic, No Depression, No SI/HI/AH/VH, No Social Issues, Heme/Lymph: No Bruising, No Bleeding,No Lymphadenopathy Endocrine: No Polyuria, No Polydipsia, No Temperature Intolerance [facility] Past Medical History Medical History Chronic idiopathic constipation Cigarette smoker Hepatic steatosis Obesity (BMI 30-39.9) Screening for colon cancer Surgical History H/O colonoscopy Hx of tonsillectomy Morbid obesity Family History Family History Brother Cancer Father Diabetes Mother Diabetes HTN (hypertension) Heart problem Family/Other Diabetes Social History Social History Household Members: Children Alcohol intake: current Alcohol intake frequency: does not drink Smoking Status: Current every day smoker Tobacco Type: Cigarette Packs Per Day: 0.5 Cigarettes Per Day: 10.0 Advance Directives: No Physical Exam Vital Signs: Vital Signs: Last Vital Signs Temp 97.9 F 12/06/20 21:57 Pulse 89 12/06/20 21:57 Resp 14 12/06/20 21:57 BP 131/73 12/06/20 21:57 Pulse Ox 99 12/06/20 21:57 Body Mass Index 42.0 Appearance: Alert. Oriented X3. No acute distress. Eyes: Pupils equal, round and reactive to light. ENT: Pharynx normal. Neck: Normal inspection. Neck supple. No lymph nodes noted. No crepitus CVS: Normal heart rate and rhythm. Pulses normal. Normal S1 and S2 Respiratory: No respiratory distress. Breath sounds normal. No Wheezing. No rales Abdomen: Soft and nontender. No rigidity. No distention. good BS x4 Skin: Skin warm and dry. Normal skin color. Normal skin turgor. Extremities: No lower extremity edema. Neurovascular intact to all extremities. No Lacerations. No Rash Neuro: Oriented X 3. No motor deficit. No sensory deficit. Moving all extermities. No slurred speech MDM - Female Genitourinary MDM Narrative Medical decision making narrative: Patient's CT positive for diverticulitis. White count 11.5. There is no abscess there is no perforation. Will discharge patient home. Will go ahead and start patient on Augmentin for 7-10 days. Close follow-up on an outpatient basis. Differential Diagnosis Differential diagnosis: Likely urinary tract infection Medical Records Attestation: I reviewed the patient's medical records. Lab Data Attestation: I reviewed the patient's lab results. Result diagrams: 12/06/20 22:12 12/06/20 22:12 Labs: Lab Results 12/06/20 12/06/20 12/06/20 Range/Units 22:12 22:12 22:12 WBC 11.5 H (4.8-10.8) X10*3/uL RBC 3.91 L (4.20-5.50) X10*6/uL Hgb 12.1 (12.0-16.0) g/dl Hct 37.7 (37-47) % MCV 96.4 (80-98) fL MCH 30.9 (27.0-33.0) pg MCHC 32.1 (31.0-35.0) g/dl RDW 11.9 (11.0-16.0) % Plt Count 237 D (160-400) X10*3/uL MPV 11.8 (9.4-12.3) fL Immature Gran % (Auto) 0.3 (0.0-0.4) % Neut % (Auto) 69.2 (45-73) % Lymph % (Auto) 21.1 (20-40) % [place] % (Auto) 8.0 (2-11) % Eos % (Auto) 1.2 (0-4) % Baso % (Auto) 0.2 (0-2) % Lymph # (Auto) 2.4 (1.2-4.9) X10*3/uL [place] # (Auto) 0.9 (0.1-1.2) X10*3/uL Eos # (Auto) 0.1 (0.0-0.4) X10*3/uL Baso # (Auto) 0.0 (0.0-0.2) X10*3/uL Abs Immat Gran (auto) 0.04 H (0.00-0.03) X10*3/uL Absolute Neuts (auto) 7.9 (2.0-8.3) X10*3/uL Absolute Nucleated RBC 0.000 (0.0-0.012) X10*3/uL Nucleated RBC % (auto) 0.0 (0.0-0.2) /100WBC Sodium 141 (135-145) mmol/L Potassium 3.9 (3.3-5.1) mmol/L Chloride 104 (96-108) mmol/L Carbon Dioxide 24 (22-29) mmol/L Anion Gap 17 (12-20) BUN 13 (9-16) mg/dL Creatinine 1.06 (0.5-1.4) mg/dL Estim Creat Clear Calc 71.9 Estimated GFR 55 Random Glucose 113 (60-115) mg/dL Calcium 9.2 (8.4-10.2) mg/dL Total Bilirubin 0.3 (0.0-1.0) mg/dL AST 27 (5-31) U/L ALT 28 (0-31) U/L Alkaline Phosphatase 85 (39-117) U/L Total Protein 7.5 (6.5-8.0) g/dL Albumin 4.2 (3.5-5.0) g/dL Urine Color DARK YELLOW Urine Appearance CLEAR Urine pH 6.5 (5.0-8.0) Ur Specific [place] 1.015 (1.005-1.025) Urine Protein 1+ H (NEG-TRACE) MG/DL Urine Glucose (UA) 100 H (NEG) MG/DL Urine Ketones NEG (NEG) MG/DL Urine Blood 2+ H (NEG) Urine Nitrite POS H (NEG) Ur Leukocyte Esterase NEG (NEG) Urine RBC 5-9 H (0) /HPF Urine WBC 0 (0-4) /HPF Ur Squamous Epith Cells TRACE /LPF Urine Bacteria TRACE /LPF Discharge Plan Discharge Clinical Impression: Diverticulitis Patient Disposition: Home, Self-Care Instructions: Diverticulitis (ED) Prescriptions: New amoxicillin-pot clavulanate [Augmentin] 875-125 mg tablet 1 tab PO Q12H 10 Days Qty: 20 RF: 0 No Action vitamin E (dl, acetate) 400 unit capsule 400 unit PO BID 30 Days Qty: 60 RF: 3 bisacodyl [Dulcolax (bisacodyl)] 5 mg tablet,delayed release (DR/EC) 10 mg PO ONCE 1 Days Qty: 2 RF: 0 polyethylene glycol 3350 [Miralax] 17 gram/dose powder 238 g PO ONCE 1 Days Qty: 238 RF: 0 sucralfate 1 gram tablet 1 g PO TID Qty: 90 RF: 0 simethicone [Gas Relief (simethicone)] 125 mg capsule 125 mg PO TID-QID PRN (Reason: abdominal distention) Qty: 120 RF: 2 omeprazole 20 mg capsule,delayed release(DR/EC) 20 mg PO DAILY Qty: 30 RF: 3 magnesium oxide 400 mg magnesium capsule 400 mg PO DAILY Qty: 30 RF: 2 docusate sodium 100 mg capsule 100 mg PO DAILY Qty: 30 RF: 3 cyclobenzaprine 10 mg tablet 10 mg PO TID RF: 0 hydroxyzine HCl 25 mg tablet 25 mg PO BEDTIME RF: 0 acetaminophen [Mapap Arthritis Pain] 650 mg tablet extended release 650 mg PO Q8H RF: 0 Referrals: Christelle Rondon MD [Primary Care Provider] - 2 days Jigna Esteves MD [Physician] - 2 days
[2020-12-07] MEDS: cefTRIAXone sodium 1 GM in 0.9 % Sodium Chloride 50 ML IV (01:49)
[2020-12-07] MEDS: metroNIDAZOLE 500 MG TABLET PO (01:49)
== END 2020-12-07 02:17 | disposition home or self-care (01) ==
PROVIDERS: Emergency Provider Emergency Medicine Emergency Medical Services; PCP Internal Medicine
DX: K57.32 Diverticulitis of large intestine without perforation or abscess without bleeding (principal); K44.9 Diaphragmatic hernia without obstruction or gangrene; K76.0 Fatty (change of) liver, not elsewhere classified; F17.210 Nicotine dependence, cigarettes, uncomplicated
CPT/HCPCS: 36415; 74176; 80053; 81001; 81003; 85025; 87086; 96365; 99283; 99284; J0696

== ENCOUNTER 2020-12-22 23:52 | Emergency (ER) | payer MEDICAID, SELFPAY ==
[2020-12-23 00:59] VITALS: BP 110/68; PULSE 80; RESP 18; TEMP 36.5; O2SAT 96; BMI 40.8
[2020-12-23] MEDS: diphenhydrAMINE HCL 25 MG TABLET PO (01:32)
[2020-12-23] MEDS: Lidocaine HCl Viscous 2 % 15 ML SOLUTION MUCOUS MEM (01:32)
--- NOTE | 2020-12-23 01:52 | ED.GENADULT ---
HPI - General Adult General Chief complaint: Allergic Reaction Stated complaint: Allergic Reaction Time Seen by Provider: 12/23/20 01:26 Source: patient and family Mode of arrival: ambulatory Limitations: no limitations History of Present Illness HPI narrative: 50 yo female with GERD not taking her PPI or carafate has had increased throat and upper abdominal pain with foods, tonight sounds like she choked on a mozzarella stick worried she was having allergic reaction, able to remvoe and swallow - no airway issues, complaint: choked on mozzarella stick Onset (ago): hour(s) Location: mouth Radiation: non-radiation Severity: mild Quality: burning Pain Consistency: now resolved Relieving factors: none Exacerbating factors: eating Associated symptoms: denies other symptoms Treatments prior to arrival: none Related Data Home Medications Medication Instructions Recorded Confirmed acetaminophen 650 mg 650 mg PO Q8H 07/27/20 10/20/20 tablet,extended release cyclobenzaprine 10 mg tablet 10 mg PO TID 07/27/20 07/27/20 hydroxyzine HCl 25 mg tablet 25 mg PO BEDTIME 07/27/20 10/20/20 Previous Rx's Medication Instructions Recorded vitamin E (dl, acetate) 400 unit 400 unit PO BID 30 Days #60 cap 07/28/20 capsule bisacodyl 5 mg tablet,delayed 10 mg PO ONCE 1 Days #2 tab 08/30/20 release polyethylene glycol 3350 17 238 g PO ONCE 1 Days #238 g 08/30/20 gram/dose oral powder docusate sodium 100 mg capsule 100 mg PO DAILY #30 cap 10/20/20 magnesium oxide 400 mg PO DAILY #30 cap 10/20/20 omeprazole 20 mg capsule,delayed 20 mg PO DAILY #30 cap 10/20/20 release simethicone 125 mg capsule 125 mg PO TID-QID PRN #120 cap 10/20/20 sucralfate 1 g PO TID #90 tab 11/24/20 amoxicillin-pot clavulanate 1 tab PO Q12H 10 Days #20 tab 12/07/20 [Augmentin] Allergies Allergy/AdvReac Type Severity Reaction Status Date / Time No Known Allergies [NKA] Allergy Verified 10/20/20 13:30 Review of Systems Review of Systems: Constitutional : No Weight loss, No Fever, No Chills ENT/Mouth : No sore throat, No Rhinorrhea Eyes: No Swelling, No Redness, pos throat pain Cardiovascular : No Chest Pain, No SOB, NoEdema Respiratory : No Cough, No Sputum, No Wheezing Gastrointestinal : no Nausea, no Vomiting, no Diarrhea, no abdominal Pain, No Hematochezia, No Melena Genitourinary : No Dysuria, No Urinary Frequency, No Hematuria, No Urgency Musculoskeletal : No joint pain, No Myalgias, No Joint Swelling Skin : No Skin Lesions, No rash Neuro : No Weakness, No Numbness, No Dizziness, No Headache Psych : No Anxiety/Panic, No Depression Heme/Lymph: No Bruising, No Lymphadenopathy Endocrine : No Polyuria, No Polydipsia All other systems reviewed and are negative. [facility] Past Medical History Attestation statement: The following information was validated with the patient. Medical History Chronic idiopathic constipation Cigarette smoker Hepatic steatosis Obesity (BMI 30-39.9) Screening for colon cancer Surgical History H/O colonoscopy Hx of tonsillectomy Morbid obesity Family History Family History Brother Cancer Father Diabetes Mother Diabetes HTN (hypertension) Heart problem Family/Other Diabetes Social History Social History Household Members: Children Alcohol intake: never Smoking Status: Never smoker Tobacco Type: Cigarette Packs Per Day: 0.5 Cigarettes Per Day: 10.0 Advance Directives: No Physical Exam Vital Signs: Vital Signs: Last Vital Signs Temp 97.7 F 12/23/20 00:59 Pulse 80 12/23/20 00:59 Resp 18 12/23/20 00:59 BP 110/68 12/23/20 00:59 Pulse Ox 96 12/23/20 00:59 Body Mass Index 40.8 Appearance: Alert. Oriented X3. No acute distress. Eyes: Pupils equal, round and reactive to light. ENT: Pharynx normal. Neck: Normal inspection. Neck supple. CVS: Normal heart rate and rhythm. Pulses normal. Respiratory: No respiratory distress. Breath sounds normal. Abdomen: Soft and nontender. Skin: Skin warm and dry. Normal skin color. Normal skin turgor. Extremities: No lower extremity edema. No calf ttp Neuro: Oriented X 3. No motor deficit. No sensory deficit. Medical Decision Making MDM Narrative Medical decision making narrative: 50 yo female with GERD now reporting increased acid and pain when eating, sounds like she choked on mozzarella stick no real allergy, able to swallow liquids, not compilant with PPI or carafate, will give benadryl and lidocaine - no airway issues, anticipate DC home Discharge Plan Discharge Clinical Impression: Esophagitis Patient Disposition: Home, Self-Care Instructions: Esophagitis (ED) Additional Instructions: take your sucralfate and omeprazole Prescriptions: No Action vitamin E (dl, acetate) 400 unit capsule 400 unit PO BID 30 Days Qty: 60 RF: 3 bisacodyl [Dulcolax (bisacodyl)] 5 mg tablet,delayed release (DR/EC) 10 mg PO ONCE 1 Days Qty: 2 RF: 0 polyethylene glycol 3350 [Miralax] 17 gram/dose powder 238 g PO ONCE 1 Days Qty: 238 RF: 0 sucralfate 1 gram tablet 1 g PO TID Qty: 90 RF: 0 amoxicillin-pot clavulanate [Augmentin] 875-125 mg tablet 1 tab PO Q12H 10 Days Qty: 20 RF: 0 simethicone [Gas Relief (simethicone)] 125 mg capsule 125 mg PO TID-QID PRN (Reason: abdominal distention) Qty: 120 RF: 2 omeprazole 20 mg capsule,delayed release(DR/EC) 20 mg PO DAILY Qty: 30 RF: 3 magnesium oxide 400 mg magnesium capsule 400 mg PO DAILY Qty: 30 RF: 2 docusate sodium 100 mg capsule 100 mg PO DAILY Qty: 30 RF: 3 cyclobenzaprine 10 mg tablet 10 mg PO TID RF: 0 hydroxyzine HCl 25 mg tablet 25 mg PO BEDTIME RF: 0 acetaminophen [Mapap Arthritis Pain] 650 mg tablet extended release 650 mg PO Q8H RF: 0 Referrals: Christelle Rondon MD [Primary Care Provider] - 2 days (if not better)
[2020-12-23 02:47] VITALS: BP 116/76; PULSE 64; RESP 16; O2SAT 96
== END 2020-12-23 03:21 | disposition home or self-care (01) ==
PROVIDERS: Emergency Provider Emergency Medicine; PCP Internal Medicine
DX: K20.90 Esophagitis, unspecified without bleeding (principal); L27.2 Dermatitis due to ingested food; F17.210 Nicotine dependence, cigarettes, uncomplicated; Z71.6 Tobacco abuse counseling; Z79.899 Other long term (current) drug therapy
CPT/HCPCS: 99283; 99284; Q0163

== ENCOUNTER 2021-01-12 12:23 | Inpatient (IN) | payer MEDICAID, SELFPAY ==
[2021-01-12] VITALS (7 sets, daily range): BP systolic 105–120; BP diastolic 61–78; PULSE 60–70; RESP 12–20; TEMP 36.4–36.7; O2SAT 96–100; BMI 42.3; BMI 39.3
--- NOTE | ~2021-01-12 | XR_ITS ---
EXAMINATION: XR CHEST CLINICAL INFORMATION: Chest pain COMPARISON: Previous chest x-ray most recent August 2020 TECHNIQUE: Frontal view of the chest was obtained. FINDINGS: The cardiac and mediastinal contours are normal. The lungs are clear. There is no pleural effusion or pneumothorax. There are degenerative changes of the spine. There may be old trauma or previous resection of the right distal clavicle. XR/XR chest 1V IMPRESSION: No evidence for acute disease in the chest.
--- NOTE | ~2021-01-12 | NM_ITS ---
EXERCISE MYOCARDIAL PERFUSION STUDY INDICATION: Chest pain, assess for coronary disease and ischemia TECHNIQUE: The patient was brought in for an exercise perfusion study on 01/13/2021. Patient performed exercise as per Antony protocol and was injected 30 mCi of sestamibi once target heart rate was achieved. Images were obtained using the SPECT gamma camera interlaced with the gating device. Images were obtained in supine position. Resting perfusion study was performed on 01/14/2021. Patient was administered 30 mCi of sestamibi intravenously at rest. Images were then obtained in supine position. Total DLP 125mGy-cm. Images were processed with the software and compared side to side in short axis, horizontal long axis and vertical long axis views. FINDINGS: Raw images were reviewed. The stress perfusion study showed mildly diminished tracer uptake along the distal part of anterior wall. With CT attenuation correction, there is no significant change. The gated study shows normal LV systolic function with calculated LVEF of 66%. LV cavity is normal in size. The gated study shows normal wall thickening and contraction of segments. Resting study shows no significant perfusion abnormality. However, with CT attenuation correction there is a slight reduction uptake in the apical part of anterior wall and adjacent apex. There is also adjacent tracer uptake in the GI/liver. Gating at rest reveals normal wall motion with ejection fraction at 53%. The findings are consistent with mild defect in the apical anterior wall that appears fixed based on attenuation corrected images. Could be artifactual. NM/NM deisi perf SPECT rest & str IMPRESSION: 1. Myocardial perfusion imaging study shows mild apical anterior defect that appears to be reversible in uncorrected and fixed based on corrected acquisitions, but with normal contractility and could be artifactual. No definitive evidence of any ischemia or infarction. 2. Gated LVEF is 66% on stress and 53% on rest. 3. Transient ischemic dilatation not present. EKG component of the test reported separately.
--- NOTE | 2021-01-12 12:34 | ED.CHESTPAIN ---
HPI - Chest Pain General Chief Complaint: Chest Pain Stated Complaint: chest pain x3 days Time Seen by Provider: 01/12/21 12:34 Source: patient Mode of arrival: EMS Limitations: language barrier History of Present Illness HPI narrative: patient with 3 months of intermittent chest pain worse with exertion, has not had stress testing. She has a strong family history MD complaint: chest pain Onset (ago): month(s) Timing of current episode: episodic Prior episodes: Yes Onset: during exertion Pain location: substernal Pain radiation: none Severity: mild Quality: tightness Exacerbating factors: exertion Associated symptoms: dyspnea Risk Factors Coronary artery disease risk factors: hyperlipidemia, hypertension and family history of CAD before age 50 Related Data Home Medications Medication Instructions Recorded Confirmed docusate sodium 100 mg PO BID 01/12/21 01/12/21 Allergies Allergy/AdvReac Type Severity Reaction Status Date / Time No Known Allergies [NKA] Allergy Verified 10/20/20 13:30 Review of Systems Constitutional: Constitutional: Reports no additional constitutional complaints Eyes: Eyes: Reports no additional eye complaints ENT: Denies dizziness Cardiovascular: Cardiovascular: Reports no additional cardiovascular complaints Respiratory: Respiratory: Reports as per HPI Gastrointestinal: Gastrointestinal: Reports no additional gastrointestinal complaints Genitourinary: Genitourinary: Reports no additional female genitourinary complaints Musculoskeletal: Musculoskeletal: Reports no additional musculoskeletal complaints Integumentary/Breasts: Skin/Breast: Denies rash Neurologic: Reports system reviewed and no additional complaints, except as documented, Denies dizziness and Denies Sensory deficit (Neuro) Psychiatric: Psychiatric: Denies anxiety PMFSH Past Medical History Medical History Chronic idiopathic constipation Cigarette smoker Hepatic steatosis Obesity (BMI 30-39.9) Screening for colon cancer Surgical History H/O colonoscopy Hx of tonsillectomy Morbid obesity Family History Family History Brother Cancer Father Diabetes Mother Diabetes HTN (hypertension) Heart problem Family/Other Diabetes Social History Social History Household Members: Children Alcohol intake: never Smoking Status: Current every day smoker Tobacco Type: Cigarette Packs Per Day: 0.5 Cigarettes Per Day: 10.0 Smoked in Last 30 Days: Yes Use of substances other than those prescribed or required for medical reasons: No Advance Directives: Yes Advance Directives Information Provided: Yes Advance Directives on File: No Patient : No Physical Exam Vital Signs: Vital Signs: Last Vital Signs Temp 98.1 F 01/12/21 12:29 Pulse 62 01/12/21 13:17 Resp 12 01/12/21 13:17 BP 114/78 01/12/21 13:17 Pulse Ox 98 01/12/21 13:17 Body Mass Index 42.3 Const: General: healthy appearing Nutritional Appearance: obese Orientation/consciousness: oriented to person and patient oriented x3 Limitations: no limitations HENMT: Head: Yes normal to inspection Ears: external ears normal General nose exam: Normal external nose present Mouth: Normal oral and palatal mucosa present and oropharynx normal Throat: Yes posterior oropharynx normal Eyes: General: appearance normal, both eyes and all related structures Neck: Other: supple Neck: Yes normal visual inspection Chest: Chest palpation & inspection: normal inspection of the chest Resp: Auscultation: clear to auscultation bilaterally Cardio: Jugular venous distension: no JVD Rate: regular rate Rhythm: regular rhythm Heart sounds: S1 normal heart sound present and S2 normal heart sound present GI: Inspection: Yes normal to inspection Palpation (GI): Soft to palpation, nontender and No hepatosplenomegaly present Auscultation: normal bowel sounds : General: Yes no CVA tenderness Back/Spine/Pelvis: Back: no CVA tenderness Skin: General skin exam: no rashes or lesions noted Neuro: General: oriented to person and patient oriented x3 Cranial nerves: Yes CN's II-XII intact bilaterally Motor exam (neuro): 5/5 motor strength present throughout Sensory Exam: No Sensory deficit (Neuro) Extrem: General: Yes normal to inspection Psych: Appearance: grossly normal MDM - Chest Pain MDM Narrative Medical decision making narrative: Patient with episodes of this for weeks or months, increasing with exertion, has family history, HTN and obesity for risk factors. Will admit to observation discussed with Dr. Ingram Differential Diagnosis Differential diagnosis: Likely unstable angina pectoris and atypical chest pain Lab Data Result diagrams: 01/12/21 13:01 01/12/21 13:01 Labs: Lab Results 01/12/21 01/12/21 01/12/21 Range/Units 13:01 13:01 13:01 WBC 6.7 (4.8-10.8) X10*3/uL RBC 3.96 L (4.20-5.50) X10*6/uL Hgb 12.4 (12.0-16.0) g/dl Hct 38.0 (37-47) % MCV 96.0 (80-98) fL MCH 31.3 (27.0-33.0) pg MCHC 32.6 (31.0-35.0) g/dl RDW 12.2 (11.0-16.0) % Plt Count 142 L D (160-400) X10*3/uL MPV 13.3 H (9.4-12.3) fL Immature Gran % (Auto) 0.1 (0.0-0.4) % Neut % (Auto) 44.5 L (45-73) % Lymph % (Auto) 44.5 H (20-40) % [place] % (Auto) 9.1 (2-11) % Eos % (Auto) 1.5 (0-4) % Baso % (Auto) 0.3 (0-2) % Lymph # (Auto) 3.0 (1.2-4.9) X10*3/uL [place] # (Auto) 0.6 (0.1-1.2) X10*3/uL Eos # (Auto) 0.1 (0.0-0.4) X10*3/uL Baso # (Auto) 0.0 (0.0-0.2) X10*3/uL Abs Immat Gran (auto) 0.01 (0.00-0.03) X10*3/uL Absolute Neuts (auto) 3.0 (2.0-8.3) X10*3/uL Absolute Nucleated RBC 0.000 (0.0-0.012) X10*3/uL Nucleated RBC % (auto) 0.0 (0.0-0.2) /100WBC Smear Tech's Comments VERIFIED Sodium 140 (135-145) mmol/L Potassium 4.2 (3.3-5.1) mmol/L Chloride 106 (96-108) mmol/L Carbon Dioxide 28 (22-29) mmol/L Anion Gap 10 L (12-20) BUN 13 (9-16) mg/dL Creatinine 0.88 (0.5-1.4) mg/dL Estim Creat Clear Calc 87.0 Estimated GFR > 60 Random Glucose 81 (60-115) mg/dL Estimat Average Glucose mg/dL Hemoglobin A1c % % Calcium 9.6 (8.4-10.2) mg/dL Troponin I High Sens < 3.5 (<3.5-17.0) ng/L 01/12/21 Range/Units 13:01 WBC (4.8-10.8) X10*3/uL RBC (4.20-5.50) X10*6/uL Hgb (12.0-16.0) g/dl Hct (37-47) % MCV (80-98) fL MCH (27.0-33.0) pg MCHC (31.0-35.0) g/dl RDW (11.0-16.0) % Plt Count (160-400) X10*3/uL MPV (9.4-12.3) fL Immature Gran % (Auto) (0.0-0.4) % Neut % (Auto) (45-73) % Lymph % (Auto) (20-40) % [place] % (Auto) (2-11) % Eos % (Auto) (0-4) % Baso % (Auto) (0-2) % Lymph # (Auto) (1.2-4.9) X10*3/uL [place] # (Auto) (0.1-1.2) X10*3/uL Eos # (Auto) (0.0-0.4) X10*3/uL Baso # (Auto) (0.0-0.2) X10*3/uL Abs Immat Gran (auto) (0.00-0.03) X10*3/uL Absolute Neuts (auto) (2.0-8.3) X10*3/uL Absolute Nucleated RBC (0.0-0.012) X10*3/uL Nucleated RBC % (auto) (0.0-0.2) /100WBC Smear Tech's Comments Sodium (135-145) mmol/L Potassium (3.3-5.1) mmol/L Chloride (96-108) mmol/L Carbon Dioxide (22-29) mmol/L Anion Gap (12-20) BUN (9-16) mg/dL Creatinine (0.5-1.4) mg/dL Estim Creat Clear Calc Estimated GFR Random Glucose (60-115) mg/dL Estimat Average Glucose 120 mg/dL Hemoglobin A1c % 5.8 % Calcium (8.4-10.2) mg/dL Troponin I High Sens (<3.5-17.0) ng/L ECG Data ECG #1: Attestation: I personally reviewed and interpreted this ECG as follows: Interpretation: sinus, rate 65, no st or twave changes Discharge Plan Discharge Clinical Impression: Unstable angina pectoris Chest pain Qualifiers: Chest pain type: precordial pain Qualified Code(s): R07.2 - Precordial pain Patient Disposition: Admitted as Observation
--- NOTE | 2021-01-12 12:35 | ECG_ITS ---
Test Reason : CHEST PAIN Blood Pressure : / mmHG Vent. Rate : 065 BPM Atrial Rate : 065 BPM P-R Int : 102 ms QRS Dur : 070 ms QT Int : 386 ms P-R-T Axes : 028 017 048 degrees QTc Int : 401 ms Sinus rhythm with short MA Otherwise normal ECG No significant changes when compared with the previous EKG of 24 jan 2021 Referred By: Fabricio Gregory Electronically Signed By:FARAZ ANTOINE
--- NOTE | 2021-01-12 12:35 | PC.NURSE ---
CALLED FOR CLINICAL SYSTEMS ANALYST
[2021-01-12 13:15] LABS: Basophils Percent Auto 0.3 % (0-2); Imm Gran Abs Auto 0.01 X10*3/uL (0.00-0.03); Imm Gran Pct Auto 0.1 % (0.0-0.4); MANUAL DIFF FLAG SCAN; Mean Corpuscular Hemoglobin 31.3 pg (27.0-33.0); SCAN SMEAR FLAG 1
[2021-01-12 13:17] LABS: Eosinophils Absolute Auto 0.1 X10*3/uL (0.0-0.4); Eosinophils Percent Auto 1.5 % (0-4); Hemoglobin 12.4 g/dl (12.0-16.0); Lymphocytes Percent Auto 44.5 % (20-40); Mean Corpuscular HGB Conc 32.6 g/dl (31.0-35.0); Mean Platelet Volume 13.3 fL (9.4-12.3); Monocytes Absolute Auto 0.6 X10*3/uL (0.1-1.2); Monocytes Percent Auto 9.1 % (2-11); Neutrophils Percent Auto 44.5 % (45-73); Platelet Count 142 X10*3/uL (160-400); Red Blood Count 3.96 X10*6/uL (4.20-5.50); Red Cell Distribution Width 12.2 % (11.0-16.0); White Blood Count 6.7 X10*3/uL (4.8-10.8)
--- NOTE | 2021-01-12 13:26 | PC.NURSE ---
PT REPORTS PAIN MOSTLY NOW RESOLVED, SOME RESIDUAL DISOMFORT, REFUSING NITROPASTE. RESP EVEN NONLABOURED, SKIN COLOUR APPROPRIATE FOR ETHNICITY. NSR ON MONITORAT THIS TIME.
[2021-01-12 13:29] LABS: PLT ABN DIST 1
[2021-01-12 13:46] LABS: Anion Gap 10 (12-20); Blood Urea Nitrogen 13 mg/dL (9-16); Calcium 9.6 mg/dL (8.4-10.2); Carbon Dioxide 28 mmol/L (22-29); Chloride 106 mmol/L (96-108); Estimated Glomerular Filt Rate > 60; Glucose Random 81 mg/dL (60-115); Potassium 4.2 mmol/L (3.3-5.1); Sodium 140 mmol/L (135-145)
[2021-01-12 13:50] LABS: SLIDE REVIEW VERIFIED
[2021-01-12 13:54] LABS: Troponin-I High Sensitivity < 3.5 ng/L (<3.5-17.0)
[2021-01-12 15:49] LABS: Estimated Average Glucose 120 mg/dL; Hemoglobin A1c % 5.8 %
[2021-01-12 17:13] LABS: Troponin-I High Sensitivity < 3.5 ng/L (<3.5-17.0)
[2021-01-12] MEDS: 0.9 % Sodium Chloride Flush 3 ML SYRINGE IVFLUSH (17:16)
[2021-01-12] MEDS: Enoxaparin Sodium 40 MG/0.4 ML SYRINGE SUBCUT (17:16)
[2021-01-12 17:25] LABS: COVID-19 Test Negative (Negative)
--- NOTE | 2021-01-12 17:39 | HP_ITS ---
DATE OF SERVICE: 01/12/2021 CHIEF COMPLAINT: Chest pain. HISTORY OF PRESENTING ILLNESS: This is a 50-year-old morbidly obese female patient with past medical history significant for smoking, GERD, hepatic steatosis, presented to [facility] with few weeks history of intermittent chest pain at least 2 times per week. The patient noticed chest pain associated with dizziness, blurred vision, associated with shortness of breath, lightheadedness mostly with exertion and climbing stairs. All symptoms goes away with rest. The patient has no prior history of coronary artery disease. She was seen 2 weeks ago in the emergency room due to symptoms of upper abdominal pain, mostly with foods and was subsequently discharged home since it was felt that the patient has increased acid and pain when eating and it was felt that most likely she choked on mozzarella stick. According to the patient, she is not compliant with her PPI or Carafate for her GERD. In the emergency room all workup is benign, including a normal troponin and EKG. The patient is being admitted to rule out acute coronary syndrome with coronary artery disease risk factors of morbid obesity, family history of coronary artery disease, and postmenopausal age. PAST MEDICAL HISTORY: Significant for; 1. GERD. 2. History of hepatic steatosis. 3. Morbid obesity. PAST SURGICAL HISTORY: Status post tonsillectomy. SOCIAL HISTORY: The patient smokes 10 cigarettes a day. Never was a heavy smoker. She stopped alcohol several years ago. Denies cocaine abuse. She lives with her children. Currently unemployed. FAMILY HISTORY: Father is , of diabetes and coronary artery disease, not aware of age of onset. Mother had diabetes, hypertension, and heart problem. Multiple family members with heart disease but according to her, likely above age 50. ALLERGIES: SHE HAS NO KNOWN DRUG ALLERGIES. MEDICATIONS: The patient takes cyclobenzaprine 10 mg t.i.d., Colace 100 mg daily, hydroxyzine 25 mg at bedtime, magnesium 400 mg daily, omeprazole 20 mg daily, polyethylene glycol 17 g daily, simethicone 125 mg by mouth t.i.d., sucralfate 1 g t.i.d., vitamin E 400 units by mouth b.i.d. Her med needs to be reconciled. REVIEW OF SYSTEMS: DECORATING INSPECTOR: She denies any headache or dizziness. CVS: No chest pain. : No urinary symptoms or urgency. SKIN: No rashes. All other systems are reviewed and negative. PHYSICAL EXAMINATION: GENERAL: The patient is resting comfortably, does not appear to be in acute distress. VITAL SIGNS: Blood pressure 114/78 with a pulse of 62, respiratory rate 12, O2 saturation 98% on room air. HEENT: Pupils equal, round, and reactive to light and accommodation. Extraocular muscles intact. Anicteric sclerae. NECK: Supple. No JVD. LUNGS: Clear to auscultation bilaterally. HEART: Regular rate and rhythm with no murmur, regurg, or gallop. ABDOMEN: Obese, soft, nontender. There is epigastric tenderness to palpation, which the patient admits is the same pain that she has, but worse with exertion. EXTREMITIES: Without clubbing, cyanosis, or edema. NEURO: Nonfocal. PSYCH: Appropriate affect. SKIN: Without any rashes. LABORATORY DATA: WBC 6.7, hematocrit of 38, platelet count of 142. Sodium 140, potassium 4.2, chloride 106, BUN 13, and creatinine of 0.88, blood sugar of 81. Troponin less than 3.5. EKG showed no acute ischemic changes. IMAGING STUDIES: None obtained. ASSESSMENT AND PLAN: This is a 50-year-old female patient with coronary artery disease risk factors of morbid obesity, smoking, and postmenopausal age as well as family history of coronary artery disease, uncertain if it is premature, presented to [facility] with multiple complaints including chest pain, dizziness, blurred vision, near-syncope, and shortness of breath with activity. The patient will be admitted to Intermediate Care Unit for close monitoring, treatment, and further evaluation. PROBLEM LIST: 1. Chest pain. patient will be admitted to Intermediate Care Unit. We will repeat troponin. Obtain an echocardiogram. Check lipid profile. Obtain Cardiology consultation. Most likely symptoms related to gastroesophageal reflux disease and deconditioning. Recommend weight reduction, gradual exercise and to avoid large carbohydrate meal. 2. Gastroesophageal reflux disease. will add prilosec.. 3. History of morbid obesity contributing to above symptoms. recommended weight reduction and exercise. 4. Deep vein thrombosis prophylaxis. will be placed on Lovenox. 5. Code status. Patient is a full code. MD ASYA Barroso/DARIN / [phone] PRECIOUS
[2021-01-13 03:29] VITALS: BP 112/66; PULSE 62; RESP 16; TEMP 36.5; O2SAT 98
[2021-01-13] MEDS: 0.9 % Sodium Chloride Flush 3 ML SYRINGE IVFLUSH ×4 (04:43→23:41)
[2021-01-13 06:51] LABS: Cholesterol 194 mg/dL; HDL Cholesterol 29 mg/dL; LDL Cholesterol Calculated 131 mg/dl; Triglycerides 171 mg/dL
[2021-01-13 07:30] VITALS: BP 125/71; PULSE 66; RESP 18; TEMP 36.3; O2SAT 97
--- NOTE | 2021-01-13 07:30 | CA_ITS ---
Transthoracic Echocardiogram Patient (Last, First, Middle): [place], Gender: Female Date of : 1970 Age: 50 Procedure Date: 01/13/2021 Procedure Type: Transthoracic Echocardiogram Location[place] [facility] [place] Height: 157.48 cm Weight: 97.07 kg BSA: 1.97 m2 Heart Rate: bpm BP: 112 / 66 mmHg Forestry Technical Officer: SITA Referring MD: Tere Ingram MD Symptoms: chest pain Study Quality: Fair/contrast ECG Rhythm: Sinus Conclusions: - The left ventricular systolic function is hyperdynamic. The visually estimated ejection fraction is >70%. - There is mild mitral valve regurgitation. Findings Procedure Information Contrast agent, definity, is being given per protocol without apparent complications. Left Ventricle Normal left ventricular cavity size. There is normal left ventricular wall thickness. The left ventricular systolic function is hyperdynamic. The visually estimated ejection fraction is >70%. There is no evidence of regional wall motion abnormalities. There is no dynamic left ventricular outflow tract obstruction. Diastolic function is normal for age. Right Ventricle Normal right ventricular cavity size and systolic function. Atria The left atrium is normal in size. The right atrium is normal in size. Aortic Valve There is a normal trileaflet aortic valve. There is no aortic valve stenosis. There is no aortic valve regurgitation. Mitral Valve The mitral valve appears normal. There is mild mitral valve regurgitation. There is no mitral valve stenosis. Pulmonic Valve The pulmonic valve was not well visualized. Tricuspid Valve Normal tricuspid valve structure. There is trace tricuspid valve regurgitation. The pulmonary artery systolic pressure is normal. Great Vessels The aortic annulus, sinuses of valsalva, and asc aorta are normal in size. Venous The inferior vena cava is normal in size and collapses greater than 50% with inspiration. Pericardium/Pleural There is no evidence of pericardial effusion. Prior Study Comparison No prior study available for comparison. Measurements 2D Linear Measurements IVSd: 0.96 0.6-0.9/0.6-1.0 cm LVIDd: 4.62 3.9-5.3/4.2-5.9 cm LVIDd Index: 2.35 2.4-3.2/2.2-3.1 cm/m2 LVIDs: 2.76 2.0-3.6 cm LVPWd: 0.92 0.7-1.1 cm Ao Root: 3.10 2.1-3.5 cm LA Diam: 3.30 2.7-3.8/3.0-4.0 cm LAIDs Index: 1.68 1.5-2.3 cm/m2 LV Mass: 183.71 67-162/88-224 g LV Mass Index: 93.26 43-95/49-115 g/m2 LVOT Diam: 2.00 3.0+(-)1.3 cm 2D Systolic Function EF 4C: 75.60 >55% EF 2C: 77.80 >55% EF BiP: 76.80 >55% Mitral Valve MV Pk E: 0.83 MV PK A: 0.67 MV Decel Time: 261.00 E/A: 1.20 E'Lateral: 10.80 E'Medial: 9.86 E/E' Med: 8.40 E/E' Lat: 7.60 PHT: 76.00 MVA PHT: 2.89 Decel Talbot: 3.16 Aortic Valve AoV Pk Shivam: 1.58 AoV Mn Shivam: 1.04 AoV VTI: 0.33 AoV Pk Grad: 10.00 Aov Mn Grad: 5.00 JULES Cont.VTI: 2.81 LVOT LVOT Pk Shivam: 1.33 LVOT Mn Shivam: 0.89 LVOT VTI: 0.29 LVOT Pk Grad: 7.00 LVOT Mn Grad: 4.00 LVOT Diam: 2.00 LVOT Area: 3.14 Diastolic Function MV Pk E: 0.83 MV Pk A: 0.67 E/A: 1.20 E'Medial: 9.86 E/E' Med: 8.40 E' Laterial: 10.80 E/E' Lat: 7.60 Tricuspid Valve TR Pk Shivam: 2.36 TR Pk Grad: 22.00 RA Press: 3.00 RVSP: 25.00 Great Vessels Aorta Ao Root-2D: 3.10 2.0-3.7 cm Ao Asc: 2.90 2.1-3.4 cm Ao Arch: 2.40 Updated in Other Vendor System with Status of Final Rambo Lazaro MD electronically signed on 01/13/2021 12:46:30 PM with status of Final
--- NOTE | 2021-01-13 08:56 | CA_ITS ---
Acquisition Time: 2021-01-13 09:52:55 Total Exercise Time: 00:05:52 Test Indications: Chest Pain Medications: Protocol: BEATRIZ Max HR: 146 BPM 85% of Pred: 170 BPM Max BP: 138/070 mmHG Max Work Load: 7.3 METS Exercise stress test using Beatriz protocol, second stage held, and manually increased both speed and incline. METS 7.3 and TAPHR up to 85 %. Pt reports to have 6/10 pain in peak exercise that resolves in recovery, Nuclear images to follow. Normotensive response to exercise. Test reviewed with Dr. Yusuf Referred By: Rambo Lazaro Overread By: Milka Green NP
--- NOTE | 2021-01-13 10:02 | P.PNIM_ITS ---
Subjective Subjective Date of Service: 01/13/21 Interval History: No acute issues overnight, patient had no further episodes of chest discomfort, denies shortness of breath. ROS General no headache, no dizziness, no fever chills. CVS no chest pain, no palpitation. Respiratory no cough, no sob. Gastrointestinal no nausea, no vomiting, no abdominal pain Physical Exam Vital Signs: Vital Signs: Last Vital Signs Temp 97.3 F 01/13/21 07:30 Pulse 66 01/13/21 07:30 Resp 18 01/13/21 07:30 BP 125/71 01/13/21 07:30 Pulse Ox 97 01/13/21 07:30 Body Mass Index 39.3 General resting comfortably in no acute distress. Neck no JVD. CVS regular rate rhythm, Respiratory lungs clear to auscultation, no respiratory distress, no wheeze, no rhonchi. Gastrointestinal abdomen soft, nontender, bowel sounds audible, no guarding , no rigidity. Extremities no clubbing cyanosis or edema. Neuro nonfocal, speech clear. Skin no rash Objective Data Current Medications Generic Name Dose Route Start Last Admin Trade Name Freq PRN Reason Stop Dose Admin Acetaminophen 650 mg 01/12/21 15:24 Acetaminophen 325 Mg Tablet PO Q6H PRN Pain, Mild (Pain Scale 1-3) Enoxaparin Sodium 40 mg 01/12/21 15:30 01/12/21 17:16 Enoxaparin Sodium 40 Mg/0.4 Ml Syringe SUBCUT 40 mg Q24H [facility] Administration Omeprazole 20 mg 01/13/21 06:30 01/13/21 05:39 Omeprazole 20 Mg Capsule.Dr PO Not Given DAILY@0630 [facility] Ondansetron HCl 4 mg 01/12/21 15:24 Ondansetron Hcl 4 Mg/2 Ml Vial IVPUSH Q8H PRN Nausea and Vomiting Sodium Chloride 3 ml 01/12/21 16:00 01/13/21 08:56 0.9 % Sodium Chloride Flush 3 Ml Syringe IVFLUSH 3 ml QSHIFT [facility] Administration Labs CBC & Chem 7: 01/12/21 13:01 01/12/21 13:01 Assessment and Plan (1) Chest pain: Status: Acute (2) Morbid obesity: Status: Acute (3) Hepatic steatosis: Status: Acute Assessment and Plan: 50-year-old female patient with coronary artery disease risk factors of morbid obesity, smoking, and postmenopausal age as well as family history of coronary artery disease, uncertain if it is premature, presented to [facility] with multiple complaints including chest pain, dizziness, blurred vision, near- syncope, and shortness of breath with activity. The patient will be admitted to Intermediate Care Unit for close monitoring, treatment, and further evaluation. 1. Chest pain. No further episodes of chest pain overnight, troponins in normal range, EKG showed no ischemia, due to recurrent episodes of chest discomfort associated with shortness of breath with exertion and with multiple coronary artery disease risk factor Including morbid obesity, smoking, family history, patient will undergo stress test, case discussed with Dr. Lazaro she will have a stress part of the test today. Follow echocardiogram. LDL 131,T.Chol 194 .Hbaic 5.8%, Strongly recommend to abstain from smoking. further treatmnet plan as per stress study result. 2. Gastroesophageal reflux disease. Added prilosec.. 3. Morbid obesity contributing to above symptoms. recommended weight reduction and exercise. 4. Deep vein thrombosis prophylaxis. Continue on Lovenox. 5. Code status. full code.
--- NOTE | 2021-01-13 10:02 | PM.CNCAR ---
History of Present Illness History of Present Illness Date of Service: 01/13/21 Consult reason: chest pain Chief complaint: chest pain Narrative: This is a cardiology consultation regarding chest pain. Patient has been admitted to the hospital with chest pain that is very variable in description. On some occasions she states that she is getting chest pains every time she walks. On other occasion, she states that this can even happen with turning her body extra. Hence very difficult to say what this description is anginal or otherwise. She also gets dizzy at times.She is also getting short of breath at times. Some of these symptoms happen with physical activity like climbing stairs. She is a smoker. Otherwise she denies any known coronary disease or myocardial infarction or other cardiac issues. There is a strong family history of cardiac disease including her mother had bypass surgery in her 50s or 60s and sister who apparently had some form of coronary disease but not clear as to the details. Hence she has been admitted for further care. Review of Systems Review of Systems: Yes all other systems are reviewed and are negative Cardiovascular: Cardiovascular: Reports as per HPI, Reports no additional cardiovascular complaints, Denies acrocyanosis, Denies cool extremities, Denies painful fingertips, Reports chest pain, Reports chest pain at rest, Denies diaphoresis, Denies syncope, Denies irregular heart rhythm, Denies claudication, Denies leg edema, Reports lightheadedness, Denies palpitations and Reports dyspnea Respiratory: Respiratory: Reports dyspnea Neurologic: Denies syncope Endocrine: Endocrine: Denies palpitations PMFSH Past Medical History Medical History Chronic idiopathic constipation Cigarette smoker Hepatic steatosis Obesity (BMI 30-39.9) Screening for colon cancer Family History Family History Brother Cancer Father Diabetes Mother Diabetes HTN (hypertension) Heart problem Family/Other Diabetes Surgical History Surgical History H/O colonoscopy Hx of tonsillectomy Morbid obesity Social History Social History Household Members: Children Housing: House Do you presently have visiting nurse or other home services: No Alcohol intake: never Smoking Status: Current every day smoker Tobacco Type: Cigarette Packs Per Day: 0.5 Cigarettes Per Day: 10.0 Smoked in Last 30 Days: Yes Patient Interested in Nicotine Replacement: No Patient Given Instructions on How to Stop Smoking: Yes Date Education Initiated: 01/12/21 Second Hand Smoke Exposure: No Use of substances other than those prescribed or required for medical reasons: No Currently Displaying Signs/Symptoms of Drug Intoxication Withdrawal: No Any prior treatment program specific to substance use: No Have you been hit, kicked, punched, or otherwise hurt by someone within the past year? If so, by whom?: No Do you feel safe in your current relationship?: Yes Is there a partner from a previous relationship who is making you feel unsafe now?: No Are you made to feel afraid or neglected: No Spiritual Healthcare Practices: oriental orthodox Advance Directives: No Advance Directives Information Provided: No Advance Directives on File: No Do you have thoughts of harming others: None Do you have a plan to hurt others: No Plan Recently lost weight without trying: No Nutrition Risks: No Nutritional Risk Patient : No : No Meds Allergies Allergy/AdvReac Type Severity Reaction Status Date / Time No Known Allergies [NKA] Allergy Verified 10/20/20 13:30 Active Medications: Current Medications Generic Name Dose Route Start Last Admin Trade Name Freq PRN Reason Stop Dose Admin Acetaminophen 650 mg 01/12/21 15:24 Acetaminophen 325 Mg Tablet PO Q6H PRN Pain, Mild (Pain Scale 1-3) Enoxaparin Sodium 40 mg 01/12/21 15:30 01/12/21 17:16 Enoxaparin Sodium 40 Mg/0.4 Ml Syringe SUBCUT 40 mg Q24H [facility]ANE Administration Omeprazole 20 mg 01/13/21 06:30 01/13/21 05:39 Omeprazole 20 Mg Capsule.Dr CORRIGAN Not Given DAILY@0630 [facility] Ondansetron HCl 4 mg 01/12/21 15:24 Ondansetron Hcl 4 Mg/2 Ml Vial IVPUSH Q8H PRN Nausea and Vomiting Sodium Chloride 3 ml 01/12/21 16:00 01/13/21 08:56 0.9 % Sodium Chloride Flush 3 Ml Syringe IVFLUSH 3 ml QSHIFT [facility] Administration Home Medications Medication Instructions Recorded Confirmed Last Taken Type docusate sodium 100 mg PO BID 01/12/21 01/12/21 Unknown History Physical Exam Vital Signs: Vital Signs: Last Vital Signs Temp 97.3 F 01/13/21 07:30 Pulse 66 01/13/21 07:30 Resp 18 01/13/21 07:30 BP 125/71 01/13/21 07:30 Pulse Ox 97 01/13/21 07:30 Body Mass Index 39.3 Const: General: cooperative, comfortable and no acute distress Orientation/consciousness: patient oriented x3 HENMT: Other: Unremarkable Neck: Neck: Yes normal visual inspection Chest: Chest palpation & inspection: normal inspection of the chest Resp: Auscultation: clear to auscultation bilaterally, no crackles and no wheezes Cardio: Jugular venous distension: no JVD Palpation: normal PMI Heart sounds: S1 normal heart sound present, S2 normal heart sound present, no gallops, no murmurs and no rubs GI: Palpation (GI): Soft to palpation Back/Spine/Pelvis: Other: unremarkable Skin: General skin exam: no rashes or lesions noted Neuro: General: patient oriented x3 Extrem: General: Yes no clubbing, cyanosis or edema Psych: Mental Status: mental status grossly normal Results Labs and Meds Result diagrams: 01/12/21 13:01 01/12/21 13:01 Lab results: Laboratory Results - last 24 hr 01/12/21 01/12/21 01/12/21 13:01 13:01 13:01 WBC 6.7 RBC 3.96 L Hgb 12.4 Hct 38.0 MCV 96.0 MCH 31.3 MCHC 32.6 RDW 12.2 Plt Count 142 L D MPV 13.3 H Immature Gran % (Auto) 0.1 Neut % (Auto) 44.5 L Lymph % (Auto) 44.5 H [place] % (Auto) 9.1 Eos % (Auto) 1.5 Baso % (Auto) 0.3 Lymph # (Auto) 3.0 [place] # (Auto) 0.6 Eos # (Auto) 0.1 Baso # (Auto) 0.0 Abs Immat Gran (auto) 0.01 Absolute Neuts (auto) 3.0 Absolute Nucleated RBC 0.000 Nucleated RBC % (auto) 0.0 Smear Tech's Comments VERIFIED Sodium 140 Potassium 4.2 Chloride 106 Carbon Dioxide 28 Anion Gap 10 L BUN 13 Creatinine 0.88 Estim Creat Clear Calc 87.0 Estimated GFR > 60 Random Glucose 81 Estimat Average Glucose Hemoglobin A1c % Calcium 9.6 Troponin I High Sens < 3.5 Triglycerides Cholesterol LDL Cholesterol, Calc HDL Cholesterol COVID-19 (FELIX) COVID-19 [employer] 01/12/21 01/12/21 01/12/21 13:01 16:13 16:51 WBC RBC Hgb Hct MCV MCH MCHC RDW Plt Count MPV Immature Gran % (Auto) Neut % (Auto) Lymph % (Auto) [place] % (Auto) Eos % (Auto) Baso % (Auto) Lymph # (Auto) [place] # (Auto) Eos # (Auto) Baso # (Auto) Abs Immat Gran (auto) Absolute Neuts (auto) Absolute Nucleated RBC Nucleated RBC % (auto) Smear Tech's Comments Sodium Potassium Chloride Carbon Dioxide Anion Gap BUN Creatinine Estim Creat Clear Calc Estimated GFR Random Glucose Estimat Average Glucose 120 Hemoglobin A1c % 5.8 Calcium Troponin I High Sens < 3.5 Triglycerides Cholesterol LDL Cholesterol, Calc HDL Cholesterol COVID-19 (FELIX) Negative COVID-19 [employer] See Note 01/13/21 05:54 WBC RBC Hgb Hct MCV MCH MCHC RDW Plt Count MPV Immature Gran % (Auto) Neut % (Auto) Lymph % (Auto) [place] % (Auto) Eos % (Auto) Baso % (Auto) Lymph # (Auto) [place] # (Auto) Eos # (Auto) Baso # (Auto) Abs Immat Gran (auto) Absolute Neuts (auto) Absolute Nucleated RBC Nucleated RBC % (auto) Smear Tech's Comments Sodium Potassium Chloride Carbon Dioxide Anion Gap BUN Creatinine Estim Creat Clear Calc Estimated GFR Random Glucose Estimat Average Glucose Hemoglobin A1c % Calcium Troponin I High Sens Triglycerides 171 Cholesterol 194 LDL Cholesterol, Calc 131 HDL Cholesterol 29 COVID-19 (FELIX) COVID-19 Clin Com ECG Attestation: I personally reviewed and interpreted this ECG as follows: Interpretation: EKG shows sinus rhythm with no significant ST-T changes and no evidence of any ischemia. Imaging Radiologist's impression: Impressions Chest X-Ray 01/12/21 15:54 IMPRESSION: No evidence for acute disease in the chest. Assessment and Plan (1) Chest pain: Qualifiers: Chest pain type: precordial pain Qualified Code(s): R07.2 - Precordial pain Status: Acute (2) Morbid obesity: Status: Acute (3) Smoking: Status: Acute (4) Family history of coronary artery bypass graft: Status: Acute Her chest pain is difficult to assess as she has exertional components as well as nonexertional components. EKGs not show any ischemic findings. High sensitivity troponins are negative. However, she has got numerous risk factors including obesity, smoking, family history of bypass surgery in her mother in her 50s. Hence we can work her up for coronary artery disease. Echocardiogram and stress testing can be completed. We will follow-up.
[2021-01-13 11:54] VITALS: BP 121/75; PULSE 80; RESP 18; TEMP 36.6; O2SAT 97
--- NOTE | 2021-01-13 14:09 | MHC.CM.PN ---
PATIENT LIVES WITH HER ADULT CHILDREN SHE USES NO DME OR VNA SERVICES. SHE IS AN ANTICIPATED DISCHARGE FOR Sunday01/14/21. PATIENT MAY NEED TRANSPORT HOME.
[2021-01-13 15:24] VITALS: BP 112/59; PULSE 89; RESP 16; TEMP 36.8; O2SAT 97
[2021-01-13] MEDS: Enoxaparin Sodium 40 MG/0.4 ML SYRINGE SUBCUT (15:50)
[2021-01-13] MEDS: Simethicone 80 MG TAB.CHEW PO (16:13)
[2021-01-13 19:19] VITALS: BP 103/60; PULSE 78; RESP 16; TEMP 36.6; O2SAT 98
[2021-01-13 23:14] VITALS: BP 110/68; PULSE 68; RESP 18; TEMP 36.6; O2SAT 96
[2021-01-14 04:00] VITALS: BP 116/76; PULSE 53; RESP 16; TEMP 36.6; O2SAT 99
[2021-01-14 07:53] VITALS: BP 102/63; PULSE 72; RESP 18; TEMP 36.2; O2SAT 94
[2021-01-14] MEDS: 0.9 % Sodium Chloride Flush 3 ML SYRINGE IVFLUSH (08:09)
--- NOTE | 2021-01-14 11:25 | PM.PNCARD ---
Subjective Subjective Date of Service: 01/14/21 Interval history: Patient states that she feels okay. Review of Systems Review of Systems Yes all other systems are reviewed and are negative Cardiovascular: Reports as per HPI, Reports no additional cardiovascular complaints, Denies acrocyanosis, Denies cool extremities, Denies painful fingertips, Reports chest pain, Reports chest pain at rest, Denies diaphoresis, Denies syncope, Denies irregular heart rhythm, Denies claudication, Denies leg edema, Reports lightheadedness, Denies palpitations and Reports dyspnea Respiratory: Reports dyspnea Denies syncope Endocrine: Denies palpitations Physical Exam Vital Signs: Last Vital Signs Temp 97.1 F 01/14/21 07:53 Pulse 72 01/14/21 07:53 Resp 18 01/14/21 07:53 BP 102/63 01/14/21 07:53 Pulse Ox 94 01/14/21 07:53 Body Mass Index 39.3 Const General: cooperative, comfortable and no acute distress Orientation/consciousness: patient oriented x3 HENMT Other: Unremarkable Neck Neck: Yes normal visual inspection Chest Chest palpation & inspection: normal inspection of the chest Resp Auscultation: clear to auscultation bilaterally, no crackles and no wheezes Cardio Jugular venous distension: no JVD Palpation: normal PMI Heart sounds: S1 normal heart sound present, S2 normal heart sound present, no gallops, no murmurs and no rubs GI Palpation (GI): Soft to palpation Back/Spine/Pelvis Other: unremarkable Skin General skin exam: no rashes or lesions noted Neuro General: patient oriented x3 Extrem General: Yes no clubbing, cyanosis or edema Psych Mental Status: mental status grossly normal Results Labs and Meds Result diagrams: 01/12/21 13:01 01/12/21 13:01 Imaging Radiologist's impression: Impressions Myocardial Perfusion Scan Nuc Med 01/13/21 08:56 IMPRESSION: 1. Myocardial perfusion imaging study shows mild apical anterior defect that appears to be reversible in uncorrected and fixed based on corrected acquisitions, but with normal contractility and could be artifactual. No definitive evidence of any ischemia or infarction. 2. Gated LVEF is 66% on stress and 53% on rest. 3. Transient ischemic dilatation not present. EKG component of the test reported separately. Progress Note: A&P Assessment and plan (1) Chest pain: Status: Acute (2) Morbid obesity: Status: Acute (3) Smoking: Status: Acute (4) Family history of coronary artery bypass graft: Status: Acute Assessment and Plan: Her chest pain is difficult to assess as she has exertional components as well as nonexertional components. EKGs do not show any ischemic findings. High sensitivity troponins are negative. Echocardiogram and stress testing are unremarkable. May be discharged home. We will arrange followup in the office. Fall Risk Details Current Medications: Current Medications Generic Name Dose Route Start Last Admin Trade Name Freq PRN Reason Stop Dose Admin Acetaminophen 650 mg 01/12/21 15:24 Acetaminophen 325 Mg Tablet PO Q6H PRN Pain, Mild (Pain Scale 1-3) Enoxaparin Sodium 40 mg 01/12/21 15:30 01/13/21 15:50 Enoxaparin Sodium 40 Mg/0.4 Ml Syringe SUBCUT 40 mg Q24H JANE Administration Omeprazole 20 mg 01/13/21 06:30 01/14/21 08:10 Omeprazole 20 Mg Capsule.Dr PO Not Given DAILY@0630 [facility] Ondansetron HCl 4 mg 01/12/21 15:24 Ondansetron Hcl 4 Mg/2 Ml Vial IVPUSH Q8H PRN Nausea and Vomiting Simethicone 80 mg 01/13/21 15:44 01/13/21 16:13 Simethicone 80 Mg Tab.Chew PO 80 mg TID PRN Administration dyspepsia Sodium Chloride 3 ml 01/12/21 16:00 01/14/21 08:09 0.9 % Sodium Chloride Flush 3 Ml Syringe IVFLUSH 3 ml QSHIFT JANE Administration Time Spent With Patient Time: Total time spent is greater than 50% in coordination of care (as documented) at patient's floor/unit and/or counseling patient: Time with patient: less than 15 minutes
--- NOTE | 2021-01-14 11:39 | PM.DS ---
DS: Providers Provider Date of Service: 01/14/21 Date of admission: 01/12/21 15:24 Primary care physician: Christelle Jorge MD Consults: 01/12/21 15:24 Consult to Cardiology Routine Consulting Provider: Rambo Lazaro Reason for consultation: chest pain Has provider been notified: No DS: Diagnosis Discharge Diagnosis (1) Chest pain: Status: Acute (2) Morbid obesity: Status: Acute (3) Smoking: Status: Acute (4) Family history of coronary artery bypass graft: Status: Acute DS: Medications Discharge Medications Home Medications: Home Medications Medication Instructions Recorded Confirmed docusate sodium 100 mg PO BID 01/12/21 01/12/21 DS: Summary Hospital Course Hospital Course: Patient was admitted with chest pain as detialed in history of present illness, no ischemic changes on ECG and negaitive biomarkers. She was evaluated by cardiology with the following impression. Her chest pain is difficult to assess as she has exertional components as well as nonexertional components. EKGs do not show any ischemic findings. High sensitivity troponins are negative. Echocardiogram and stress testing are unremarkable. May be discharged home. We will arrange followup in the office. Dr. Lazaro will see her in the office. Vitals included blood pressure is normal. Time Spent with Patient Time attestation: Total time spent providing and/or coordinating discharge services: Discharge coordination time: Greater than 30 minutes Physical Exam Vital Signs: Vital Signs: Last Vital Signs Temp 97.1 F 01/14/21 07:53 Pulse 72 01/14/21 07:53 Resp 18 01/14/21 07:53 BP 102/63 01/14/21 07:53 Pulse Ox 94 01/14/21 07:53 Body Mass Index 39.3 General: AO X 3, no acute distress Resp: CTA bilateral CVS: S1,S2,RRR GI: +BS, NT, no distention Skin: No rash Neuro: motor grossly intact Psych: appropriate affect Discharge Plan Discharge Anticipated Discharge Date/Time: 01/14/21 11:36 Patient Disposition: Home, Self-Care Discharge Diagnosis: Chest pain Referrals: Christelle Rondon MD [Primary Care Provider] - 1 Week Discharge Medications: Continued docusate sodium 100 mg capsule 100 mg PO BID RF: 0 Discharge Orders: Discharge Order (Routine); Ordered 01/14/21 Ordered By: Jose Gross Diet: advance to usual diet Activity on Discharge: As tolerated Stand Alone Forms: Patient Portal Discharge page Care Plan Goals: Rule out coronary artery disease Health Concerns: Obesity Plan of Treatment: To follow-up with Dr. Lazaro in the cardiology office. Assessment: See above
[2021-01-14 11:57] VITALS: BP 107/59; PULSE 76; RESP 18; TEMP 36.3; O2SAT 98
--- NOTE | 2021-01-14 11:57 | MHC.CM.PN ---
PLAN IS HOME TODAY - SELF CARE. RN AWARE.
--- NOTE | 2021-01-14 13:44 | MHC.CM.PN ---
[employer] PROVIDED RN AWARE
== END 2021-01-14 15:31 | disposition home or self-care (01) | DRG 203 ==
LOC: HO.ED 14:49 → HO.EDOVER 15:32 → HO.S3 18:36
PROVIDERS: Admitting Provider Hospitalist; Emergency Provider Emergency Medicine; PCP Internal Medicine; Visit Provider Internal Medicine
DX: R07.2 Precordial pain (principal); E66.01 Morbid (severe) obesity due to excess calories; K21.9 Gastro-esophageal reflux disease without esophagitis; F17.210 Nicotine dependence, cigarettes, uncomplicated; Z20.822 Contact with and (suspected) exposure to COVID-19; Z71.6 Tobacco abuse counseling; Z68.39 Body mass index [BMI] 39.0-39.9, adult; Z79.899 Other long term (current) drug therapy
CPT/HCPCS: 36415; 71045; 78452; 80048; 80061; 83036; 84484; 85025; 87635; 93005; 93016; 93017; 93018; 93306; 99218; 99285; A9500; J1650; Q9957

== ENCOUNTER → 2021-01-26 10:32 | Outpatient (BNVA) | payer MEDICAID, SELFPAY | PROVIDERS: PCP Internal Medicine; Referring Provider Internal Medicine; Visit Provider Nurse Practitioner Family | DX: R07.9 Chest pain, unspecified (principal); F17.210 Nicotine dependence, cigarettes, uncomplicated; Z82.49 Family history of ischemic heart disease and other diseases of the circulatory system | CPT/HCPCS: 99212 ==

== ENCOUNTER 2021-02-16 13:08 | Outpatient (REF) | payer MEDICAID, SELFPAY ==
[2021-02-17 15:11] LABS: H Pylori Breath Test NOT DETECTED (NOT DETECTED)
== END 2021-02-16 13:09 | disposition home or self-care (01) ==
LOC: HO.LNP 13:08
PROVIDERS: PCP Internal Medicine; Referring Provider Internal Medicine; Visit Provider Nurse Practitioner Family
DX: K21.9 Gastro-esophageal reflux disease without esophagitis (principal); K57.92 Diverticulitis of intestine, part unspecified, without perforation or abscess without bleeding; Z79.899 Other long term (current) drug therapy
CPT/HCPCS: 83013; 99212

== ENCOUNTER 2021-02-22 06:29 | Emergency (ER) | payer MEDICAID, SELFPAY ==
--- NOTE | ~2021-02-22 | CT_ITS ---
EXAMINATION: CT ABDOMEN AND PELVIS WITHOUT CONTRAST CLINICAL INFORMATION: Lower abdominal pain. History of diverticulitis. COMPARISON: None TECHNIQUE: Multidetector volumetric imaging was performed from the superior aspect of the liver through the pubic symphysis. Sagittal and coronal reformatted images were obtained on the technologist's workstation. This CT examination was performed using dose optimization techniques as appropriate, variously including the following: *Automated exposure control *Adjustment of mA and/or kV according to patient size (this includes techniques or standardized protocols for targeted exams where dose is matched to indication/reason for exam; i.e. extremities or head) *Use of iterative reconstruction technique DLP: 785 mGy-cm FINDINGS: LUNG BASES: The lung bases are clear. LIVER, GALLBLADDER, AND BILIARY TREE: The liver is normal in size, shape, and attenuation. No focal hepatic lesion or biliary ductal dilatation is present. The gallbladder is unremarkable with no evidence of radiopaque gallstones, gallbladder wall thickening, or obvious pericholecystic inflammatory changes. PANCREAS: Unremarkable. SPLEEN: Unremarkable. ADRENAL GLANDS: Unremarkable. KIDNEYS AND URETERS: The kidneys are normal in size, shape, and attenuation. No hydronephrosis, hydroureter, or calculi seen. No perinephric stranding. There is a 5.1 x 4.2 cm cyst midpole right kidney. BLADDER: Unremarkable. GASTROINTESTINAL TRACT: Is diffuse mural thickening involving the sigmoid colon with pericolic fat stranding and adjacent diverticuli consistent with acute diverticulitis. There is no abnormal drainable collection or free air. There is minimal free fluid in the pelvis. Rest of colon is unremarkable. The small bowel loops are normal caliber. Appendix is not seen well. ABDOMINAL WALL: No significant hernia is appreciated. LYMPH NODES: Normal. VASCULAR: Unremarkable. PELVIC VISCERA: There is a fluid-filled tubular structure in the right pelvis on axial image 56 through 63/3 likely a focal prominent small bowel. Small pericolic lymph nodes are seen similar to previous study. There are scattered phleboliths in the pelvis. There is small amount of free fluid. OSSEOUS STRUCTURES: Unremarkable. CT/CT abdomen pelvis wo con IMPRESSION: Thickened segment of sigmoid colon with scattered diverticula and pericolic fat stranding suggestive of acute pancreatitis similar to previous study 12/07/2020. There is small amount of free fluid in pelvis. There is a tubular fluid containing structure in the right pelvis near likely prominent dilated loop of small bowel. Stable right renal cyst
[2021-02-22 07:08] VITALS: BP 154/74; PULSE 92; RESP 18; TEMP 36.1; O2SAT 98; BMI 41.5
--- NOTE | 2021-02-22 07:47 | ED.ABDPAIN ---
HPI - Abdominal Pain General Chief Complaint: Abdominal Pain Stated Complaint: ABD PAIN Time Seen by Provider: 02/22/21 07:47 Source: patient Mode of arrival: ambulatory Limitations: no limitations History of Present Illness HPI narrative: lower abdominal pain yesterday, no fever. States that her pain is like her diverticulitis pain of three months ago. Pertinent past history: diverticulitis Onset (ago): day(s) Pain Consistency: constant Location: RLQ and LLQ Severity: moderate Quality: cramping Exacerbating factors: nothing Relieving factors: nothing Associated symptoms: nausea and diarrhea Related Data Previous Rx's Medication Instructions Recorded sennosides 8.6 mg tablet 8.6 mg PO BEDTIME PRN #30 tab 02/16/21 simethicone 125 mg capsule 125 mg PO BID-QID PRN #120 cap 02/16/21 levofloxacin 500 mg PO DAILY #10 tab 02/22/21 metronidazole [Flagyl] 500 mg PO TID #30 tab 02/22/21 Allergies Allergy/AdvReac Type Severity Reaction Status Date / Time No Known Allergies [NKA] Allergy Verified 02/16/21 13:22 Review of Systems Constitutional: Reports no additional constitutional complaints Eyes: Reports no additional eye complaints Denies dizziness Cardiovascular: Reports no additional cardiovascular complaints Respiratory: Reports as per HPI Gastrointestinal: Reports no additional gastrointestinal complaints Genitourinary: Reports no additional female genitourinary complaints Musculoskeletal: Reports no additional musculoskeletal complaints Skin/Breast: Denies rash Reports system reviewed and no additional complaints, except as documented, Denies dizziness and Denies Sensory deficit (Neuro) Psychiatric: Denies anxiety Physical Exam Vital Signs: Vital Signs: Last Vital Signs Temp 98.5 F 02/22/21 10:16 Pulse 91 02/22/21 10:16 Resp 18 02/22/21 07:08 BP 123/70 02/22/21 07:49 Pulse Ox 99 02/22/21 10:16 Body Mass Index 41.5 Const: General: healthy appearing Nutritional Appearance: obese Orientation/consciousness: oriented to person and patient oriented x3 Limitations: no limitations HENMT: Head: Yes normal to inspection Ears: external ears normal General nose exam: Normal external nose present Mouth: Normal oral and palatal mucosa present and oropharynx normal Throat: Yes posterior oropharynx normal Eyes: General: appearance normal, both eyes and all related structures Neck: Other: supple Neck: Yes normal visual inspection Chest: Chest palpation & inspection: normal inspection of the chest Resp: Auscultation: clear to auscultation bilaterally Cardio: Jugular venous distension: no JVD Rate: regular rate Rhythm: regular rhythm Heart sounds: S1 normal heart sound present and S2 normal heart sound present GI: Other: lower abdominal tenderness Inspection: Yes normal to inspection Auscultation: normal bowel sounds : General: Yes no CVA tenderness Back/Spine/Pelvis: Back: no CVA tenderness Skin: General skin exam: no rashes or lesions noted Neuro: General: oriented to person and patient oriented x3 Cranial nerves: Yes CN's II-XII intact bilaterally Motor exam (neuro): 5/5 motor strength present throughout Sensory Exam: No Sensory deficit (Neuro) Extrem: General: Yes normal to inspection Psych: Appearance: grossly normal Course Course Course Narrative: CT scan, history and physical all consistent with diverticulitis. Patient afebrile, non toxic will dc home MDM - Abdominal Pain Lab Data Result diagrams: 02/22/21 08:24 02/22/21 08:24 Labs: Lab Results 02/22/21 02/22/21 02/22/21 Range/Units 08:24 08:24 08:33 WBC 10.5 (4.8-10.8) X10*3/uL RBC 4.35 (4.20-5.50) X10*6/uL Hgb 13.6 (12.0-16.0) g/dl Hct 41.8 (37-47) % MCV 96.1 (80-98) fL MCH 31.3 (27.0-33.0) pg MCHC 32.5 (31.0-35.0) g/dl RDW 12.1 (11.0-16.0) % Plt Count 155 L (160-400) X10*3/uL MPV 12.5 H (9.4-12.3) fL Immature Gran % (Auto) 0.3 (0.0-0.4) % Neut % (Auto) 81.8 H (45-73) % Lymph % (Auto) 11.8 L (20-40) % Jay % (Auto) 5.0 (2-11) % Eos % (Auto) 0.9 (0-4) % Baso % (Auto) 0.2 (0-2) % Lymph # (Auto) 1.2 (1.2-4.9) X10*3/uL Jay # (Auto) 0.5 (0.1-1.2) X10*3/uL Eos # (Auto) 0.1 (0.0-0.4) X10*3/uL Baso # (Auto) 0.0 (0.0-0.2) X10*3/uL Abs Immat Gran (auto) 0.03 (0.00-0.03) X10*3/uL Absolute Neuts (auto) 8.6 H (2.0-8.3) X10*3/uL Absolute Nucleated RBC 0.000 (0.0-0.012) X10*3/uL Nucleated RBC % (auto) 0.0 (0.0-0.2) /100WBC Sodium 141 (135-145) mmol/L Potassium 4.4 (3.3-5.1) mmol/L Chloride 107 (96-108) mmol/L Carbon Dioxide 25 (22-29) mmol/L Anion Gap 13 (12-20) BUN 17 H (9-16) mg/dL Creatinine 0.97 (0.5-1.4) mg/dL Estim Creat Clear Calc 78.0 Estimated GFR > 60 Random Glucose 130 H D (60-115) mg/dL Calcium 9.6 (8.4-10.2) mg/dL Total Bilirubin 0.5 (0.0-1.0) mg/dL Direct Bilirubin 0.2 (0.0-0.5) mg/dL AST 41 H D (5-31) U/L ALT 31 (0-31) U/L Alkaline Phosphatase 78 (39-117) U/L Total Protein 7.4 (6.5-8.0) g/dL Albumin 4.2 (3.5-5.0) g/dL Lipase 35 (8-78) U/L Urine Color YELLOW Urine Appearance HAZY Urine pH 6.0 (5.0-8.0) Ur Specific [place] >= 1.030 H (1.005-1.025) Urine Protein TRACE (NEG-TRACE) MG/DL Urine Glucose (UA) NEG (NEG) MG/DL Urine Ketones NEG (NEG) MG/DL Urine Blood 2+ H (NEG) Urine Nitrite NEG (NEG) Ur Leukocyte Esterase NEG (NEG) Urine RBC 15-29 H (0) /HPF Urine WBC 1-4 (0-4) /HPF Ur Squamous Epith Cells 1+ /LPF Amorphous Sediment 1+ /LPF Urine Bacteria NONE /LPF Urine Mucus 2+ /LPF Imaging Data CT scan - abdomen: Radiologist's impression: IMPRESSION: Thickened segment of sigmoid colon with scattered diverticula and pericolic fat stranding suggestive of acute pancreatitis similar to previous study 12/07/2020. There is small amount of free fluid in pelvis. There is a tubular fluid containing structure in the right pelvis near likely prominent dilated loop of small bowel. Stable right renal cyst Discharge Plan Discharge Clinical Impression: Diverticulitis Patient Disposition: Home, Self-Care Instructions: Diverticulitis (ED), Diverticulitis Diet (ED) Additional Instructions: clear liquid diet for 3 days Prescriptions: New levofloxacin 500 mg tablet 500 mg PO DAILY Qty: 10 RF: 0 metronidazole [Flagyl] 500 mg tablet 500 mg PO TID Qty: 30 RF: 0 No Action simethicone 125 mg capsule 125 mg PO BID-QID PRN (Reason: abdominal distention) Qty: 120 RF: 3 sennosides [Natural Senna Laxative] 8.6 mg tablet 8.6 mg PO BEDTIME PRN (Reason: constipation) Qty: 30 RF: 1 Referrals: Christelle Rondon MD [Primary Care Provider] - 3 days [facility] Past Medical History Medical History Chronic idiopathic constipation Cigarette smoker Diverticulitis Family history of coronary artery bypass graft Hepatic steatosis Obesity (BMI 30-39.9) Screening for colon cancer Smoking Unstable angina pectoris Surgical History H/O colonoscopy Hx of tonsillectomy Morbid obesity Family History Family History Brother Cancer Father Diabetes Mother Diabetes HTN (hypertension) Heart problem Family/Other Diabetes Social History Social History Household Members: Children Housing: House Do you presently have visiting nurse or other home services: No Alcohol intake: never Cigarette Packs Per Day: 0.5 Cigarettes Per Day: 10.0 Second Hand Smoke Exposure: No Advance Directives: No Advance Directives Information Provided: No Patient : No
[2021-02-22 07:49] VITALS: BP 123/70; PULSE 90; O2SAT 97
[2021-02-22 08:28] LABS: MANUAL DIFF FLAG NO
[2021-02-22 08:29] LABS: Basophils Percent Auto 0.2 % (0-2); Eosinophils Absolute Auto 0.1 X10*3/uL (0.0-0.4); Eosinophils Percent Auto 0.9 % (0-4); Hematocrit 41.8 % (37-47); Hemoglobin 13.6 g/dl (12.0-16.0); Imm Gran Abs Auto 0.03 X10*3/uL (0.00-0.03); Imm Gran Pct Auto 0.3 % (0.0-0.4); Lymphocytes Absolute Auto 1.2 X10*3/uL (1.2-4.9); Lymphocytes Percent Auto 11.8 % (20-40); Mean Corpuscular HGB Conc 32.5 g/dl (31.0-35.0); Mean Corpuscular Hemoglobin 31.3 pg (27.0-33.0); Mean Corpuscular Volume 96.1 fL (80-98); Mean Platelet Volume 12.5 fL (9.4-12.3); Monocytes Absolute Auto 0.5 X10*3/uL (0.1-1.2); Neutrophils Absolute Auto 8.6 X10*3/uL (2.0-8.3); Neutrophils Percent Auto 81.8 % (45-73); Platelet Count 155 X10*3/uL (160-400); Red Blood Count 4.35 X10*6/uL (4.20-5.50); Red Cell Distribution Width 12.1 % (11.0-16.0); White Blood Count 10.5 X10*3/uL (4.8-10.8)
[2021-02-22] MEDS: ondansetron HCL 4 MG/2 ML VIAL IVPUSH (08:33)
[2021-02-22] MEDS: Ketorolac Tromethamine 30 MG/ML VIAL IVPUSH (08:33)
[2021-02-22 08:41] LABS: Glucose Urine UA NEG (NEG); Leukocyte Esterase Urine NEG (NEG); Nitrite Urine NEG (NEG); Specific Gravity - Urine >= 1.030 (1.005-1.025); Urine Blood 2+ (NEG); Urine Ketones NEG (NEG); Urine Protein TRACE MG/DL (NEG-TRACE)
[2021-02-22 08:42] LABS: Appearance Urine HAZY; Color Urine YELLOW
[2021-02-22 08:52] LABS: Alanine Aminotransferase 31 U/L (0-31); Albumin Level 4.2 g/dL (3.5-5.0); Alkaline Phosphatase 78 U/L (39-117); Anion Gap 13 (12-20); Aspartate Amino Transferase 41 U/L (5-31); Bilirubin Direct 0.2 mg/dL (0.0-0.5); Bilirubin Total 0.5 mg/dL (0.0-1.0); Blood Urea Nitrogen 17 mg/dL (9-16); Calcium 9.6 mg/dL (8.4-10.2); Carbon Dioxide 25 mmol/L (22-29); Chloride 107 mmol/L (96-108); Estimated Glomerular Filt Rate > 60; Glucose Random 130 mg/dL (60-115); Lipase 35 U/L (8-78); Potassium 4.4 mmol/L (3.3-5.1); Sodium 141 mmol/L (135-145); Total Protein 7.4 g/dL (6.5-8.0)
[2021-02-22 08:55] LABS: Squamous Epithelial Cell Urine 1+ /LPF
[2021-02-22 08:56] LABS: Amorphous Sediment Urine 1+ /LPF; Mucus Urine 2+ /LPF
[2021-02-22 10:16] VITALS: PULSE 91; TEMP 36.9; O2SAT 99
[2021-02-22] MEDS: levoFLOXacin/D5W 500 MG/100 ML PIGGYBACK 100 MG IV (10:49)
[2021-02-22] MEDS: metroNIDAZOLE/NS 500 MG/100 ML PIGGYBACK 100 MG IV (11:48)
[2021-02-22 12:17] VITALS: BP 106/53; PULSE 100; TEMP 37.4; O2SAT 98
== END 2021-02-22 13:00 | disposition home or self-care (01) ==
PROVIDERS: Emergency Provider Emergency Medicine; PCP Internal Medicine
DX: K57.92 Diverticulitis of intestine, part unspecified, without perforation or abscess without bleeding (principal)
CPT/HCPCS: 36415; 74176; 80048; 80076; 81001; 83690; 85025; 96365; 96368; 96375; 99284; J1885; J1956; J2405

== ENCOUNTER → 2021-03-18 11:29 | Outpatient (BNVA) | payer MEDICAID, SELFPAY | PROVIDERS: Visit Provider Nurse Practitioner Family ==

== ENCOUNTER 2021-06-04 10:08 | Emergency (ER) | payer MEDICAID, SELFPAY ==
[2021-06-04 10:19] VITALS: BP 151/74; PULSE 64; RESP 16; TEMP 36.6; O2SAT 97; BMI 23.8
--- NOTE | 2021-06-04 10:35 | ED_ITS ---
HPI - Wound/Laceration General Chief Complaint: Wound/Laceration Stated Complaint: thumb laceration Time Seen by Provider: 06/04/21 10:35 Source: patient Mode of arrival: ambulatory Limitations: no limitations History of Present Illness HPI narrative: 50-year-old female presents for right thumb injury, patient was p icking up a mandoline to use it, and cut the tip of her right thumb. She is not up-to-date on her tetanus. Related Data Previous Rx's Medication Instructions Recorded sennosides 8.6 mg tablet (Natural 8.6 mg PO BEDTIME PRN #30 tab 02/16/21 Senna Laxative) simethicone 125 mg capsule 125 mg PO BID-QID PRN #120 cap 02/16/21 naproxen 500 mg tablet (Naprosyn) 500 mg PO BID #20 tab 02/22/21 famotidine 20 mg tablet (Pepcid) 20 mg PO BEDTIME #30 tab 03/18/21 psyllium husk 0.52 gram capsule 0.52 g PO DAILY #30 cap 03/18/21 (Metamucil) Allergies Allergy/AdvReac Type Severity Reaction Status Date / Time No Known Allergies [NKA] Allergy Verified 04/22/21 12:35 Review of Systems Constitutional: Constitutional: Denies body ache(s), Denies chills, Denies fatigue, Denies fever(s), Denies headache(s), Denies malaise and Denies weakness Eyes: Eyes: Denies diplopia ENT: Denies vertigo, Denies dizziness, Denies otalgia, Denies headache(s), Denies mouth pain, Denies post nasal drip, Denies sinus pain, Denies sinus pressure, Denies sore throat and Denies throat swelling Cardiovascular: Cardiovascular: Denies chest pain, Denies syncope, Denies leg edema, Denies lightheadedness, Denies Loss of Consciousness, Denies palpitations and Denies dyspnea Respiratory: Respiratory: Denies chest congestion, Denies cough and Denies dyspnea Integumentary/Breasts: Comments: Laceration to right thumb Neurologic: Denies confusion, Denies vertigo, Denies dizziness, Denies syncope, Denies headache(s) and Denies weakness Psychiatric: Psychiatric: Denies anxiety, Denies confusion and Denies depression Endocrine: Endocrine: Denies fatigue and Denies palpitations Allergic/Immunologic: Allergic/Immunologic: Denies throat swelling PMFSH Past Medical History Medical History Chronic idiopathic constipation Cigarette smoker Diverticulitis Family history of coronary artery bypass graft Hepatic steatosis Obesity (BMI 30-39.9) Screening for colon cancer Smoking Unstable angina pectoris Surgical History H/O colonoscopy Hx of tonsillectomy Morbid obesity Family History Family History Brother Cancer Father Diabetes Mother Diabetes HTN (hypertension) Heart problem Family/Other Diabetes Social History Social History Household Members: Children Housing: House Do you presently have visiting nurse or other home services: No Alcohol intake: never Patient Tobacco Use Status: Never used Tobacco Cigarette Packs Per Day: 0.5 Cigarettes Per Day: 10.0 Second Hand Smoke Exposure: No Advance Directives: No Physical Exam Vital Signs: Vital Signs: Last Vital Signs Temp 97.9 F 06/04/21 10:19 Pulse 64 06/04/21 10:19 Resp 16 06/04/21 10:19 BP 151/74 H 06/04/21 10:19 Pulse Ox 97 06/04/21 10:19 Body Mass Index 23.8 Const: General: No confusion Nutritional Appearance: well nourished Orientation/consciousness: No confusion Limitations: no limitations Eyes: Conjunctivae: conjunctivae normal Pupils: Equal, round and reactive pupils present EOM: EOMs intact bilaterally Resp: Effort & Inspection: normal respiratory effort and able to speak in complete sentences Auscultation: clear to auscultation bilaterally, no crackles, no rales, no rhonchi and no wheezes Cardio: Rate: regular rate Rhythm: regular rhythm Heart sounds: S1 normal heart sound present and S2 normal heart sound present Skin: Other: Laceration to right thumb Neuro: General: No confusion Cranial nerves: Yes Equal, round and reactive pupils present Extrem: General: Yes normal to inspection and Yes full ROM Hand/finger images: 1. laceration Psych: Appearance: grossly normal Affect: normal affect Attitude: cooperative Thought process: Normal thought process present Course Course Course Narrative: 50-year-old female presents for laceration to right thumb. Gave patient tetanus, cleaned wound and applied 3 sutures. Patient tolerated procedure well. Gave wound care instructions and infection return precautions, patient counseled to get her sutures out in 7 days. Procedures Laceration Laceration 1: Site: hand Side (If applicable): right Size (cm): 2 Description: linear Depth: simple, single layer Local Anesthetic: lidocaine 1% Amount of anesthesia used (mL): 1 Pre-repair: wound explored, irrigated extensively and deep structures intact Skin layer closed with: vicryl Size (cm): 3-0 Number of sutures: 3 Technique: simple, interrupted Discharge Plan Discharge Clinical Impression: Laceration Patient Disposition: Home, Self-Care Instructions: Laceration (ED) Additional Instructions: Leave the dressing we have put on until tomorrow morning. Then you can take it off, washed with soap and water, pat dry. Apply a thin layer of bacitracin, and a nonstick dressing. Do this for the next 3-4 days, after that you can just keep cover with a Band-Aid. Please return on June 10, 7 days from now, to have your 3 sutures removed. If you have redness, swelling, warmth, or increasing pain, please return to be seen. Take Tylenol and ibuprofen for pain Prescriptions: No Action naproxen [Naprosyn] 500 mg tablet 500 mg PO BID Qty: 20 RF: 0 psyllium husk [Metamucil] 0.52 gram capsule 0.52 g PO DAILY Qty: 30 RF: 4 famotidine [Pepcid] 20 mg tablet 20 mg PO BEDTIME Qty: 30 RF: 3 simethicone 125 mg capsule 125 mg PO BID-QID PRN (Reason: abdominal distention) Qty: 120 RF: 3 sennosides [Natural Senna Laxative] 8.6 mg tablet 8.6 mg PO BEDTIME PRN (Reason: constipation) Qty: 30 RF: 1 Interventions: ED Discharge Assessment Last Done: 06/04/21 11:49 Discharge Date/Time: 06/04/21 11:50
[2021-06-04] MEDS: Diphth,Pertus(ACell),Tet Adult 0.5 ML SYRINGE IM (10:59)
[2021-06-04] MEDS: Lidocaine HCl 1 % 20 ML VIAL 10 ML INFILTRATI (11:00)
== END 2021-06-04 11:50 | disposition home or self-care (01) ==
PROVIDERS: Emergency Provider Emergency Medicine Emergency Medical Services; PCP Internal Medicine
DX: S61.011A Laceration without foreign body of right thumb without damage to nail, initial encounter (principal); M79.641 Pain in right hand; W26.9XXA Contact with unspecified sharp object(s), initial encounter; Y93.G3 Activity, cooking and baking; Y92.000 Kitchen of unspecified non-institutional (private) residence as the place of occurrence of the external cause; Y99.9 Unspecified external cause status
CPT/HCPCS: 12001; 90471; 90715; 99283; 99284

== ENCOUNTER 2021-06-18 09:54 | Emergency (ER) | payer MEDICAID, SELFPAY ==
[2021-06-18 10:01] VITALS: BP 123/78; PULSE 69; RESP 18; TEMP 36.1; O2SAT 96; BMI 42.6
--- NOTE | 2021-06-18 11:37 | ED_ITS ---
HPI - Skin/Abscess/Foreign Bdy General Chief complaint: Skin/Abscess/Foreign Body Stated complaint: suture removal Time Seen by Provider: 06/18/21 10:14 Source: patient Mode of arrival: ambulatory Limitations: no limitations History of Present Illness HPI narrative: Patient here for suture removal from right thumb. Patient tells me that she had a laceration on June 04 and had 3 sutures placed. She is here for removal. She has no complaints Related Data Previous Rx's Medication Instructions Recorded sennosides 8.6 mg tablet (Natural 8.6 mg PO BEDTIME PRN #30 tab 02/16/21 Senna Laxative) simethicone 125 mg capsule 125 mg PO BID-QID PRN #120 cap 02/16/21 naproxen 500 mg tablet (Naprosyn) 500 mg PO BID #20 tab 02/22/21 famotidine 20 mg tablet (Pepcid) 20 mg PO BEDTIME #30 tab 03/18/21 psyllium husk 0.52 gram capsule 0.52 g PO DAILY #30 cap 03/18/21 (Metamucil) Allergies Allergy/AdvReac Type Severity Reaction Status Date / Time No Known Allergies [NKA] Allergy Verified 04/22/21 12:35 Review of Systems Review of Systems: Yes all other systems are reviewed and are negative Constitutional: Constitutional: Reports no additional constitutional complaint s, Denies body ache(s), Denies chills, Denies fever(s), Denies headache(s) and Denies weakness Eyes: Eyes: Reports no additional eye complaints and Denies change in vision ENT: Reports system reviewed and no additional complaints, except as documented, Denies dizziness, Denies headache(s), Denies nasal congestion, Denies nasal discharge and Denies neck pain Cardiovascular: Cardiovascular: Reports no additional cardiovascular complaints, Denies chest pain, Denies leg edema and Denies dyspnea Respiratory: Respiratory: Reports no additional respiratory complaints, Denies cough and Denies dyspnea Gastrointestinal: Gastrointestinal: Reports no additional gastrointestinal complaints, Denies abdominal pain, Denies diarrhea, Denies nausea and Denies vo miting Genitourinary: Genitourinary: Reports no additional female genitourinary complaints and Denies urinary incontinence Musculoskeletal: Musculoskeletal: Reports no additional musculoskeletal complaints, Denies back pain, Denies arthralgias, Denies joint swelling, Denies neck pain, Denies numbness and Denies tingling Integumentary/Breasts: Skin/Breast: Reports system reviewed and no additional complaints, except as docu and Denies rash Neurologic: Reports system reviewed and no additional complaints, except as documented, Denies Abnormal speech present, Denies dizziness, Denies headache(s), Denies numbness, Denies tingling and Denies weakness PMFSH Past Medical History Attestation statement: The following information was validated with the patient. Source: old records reviewed and nursing notes reviewed Medical History Chronic idiopathic constipation Cigarette smoker Diverticulitis Family history of coronary artery bypass graft Hepatic steatosis Obesity (BMI 30-39.9) Screening for colon cancer Smoking Unstable angina pectoris Surgical History H/O colonoscopy Hx of tonsillectomy Morbid obesity Family History Family History Brother Cancer Father Diabetes Mother Diabetes HTN (hypertension) Heart problem Family/Other Diabetes Social History Social History Household Members: Children Housing: House Do you presently have visiting nurse or other home services: No Alcohol intake: never Patient Tobacco Use Status: Never used Tobacco Cigarette Packs Per Day: 0.5 Cigarettes Per Day: 10.0 Second Hand Smoke Exposure: No Advance Directives: No Physical Exam Vital Signs: Vital Signs: Last Vital Signs Temp 97 F 06/18/21 10:01 Pulse 69 06/18/21 10:01 Resp 18 06/18/21 10:01 BP 123/78 06/18/21 10:01 Pulse Ox 96 06/18/21 10:01 Body Mass Index 42.6 Const: General: cooperative, healthy appearing, comfortable and no acute distress Orientation/consciousness: patient oriented x3 Limitations: no limitations HENMT: Head: Yes normal to inspection Ears: hearing grossly normal bilaterally General nose exam: Normal external nose present Face and sinus: Yes normal facial exam Mouth: Normal oral and palatal mucosa present Throat: Yes posterior oropharynx normal Eyes: General: appearance normal, both eyes and all related structures Pup ils: Equal, round and reactive pupils present Neck: Neck: Yes normal visual inspection Chest: Chest palpation & inspection: normal inspection of the chest Resp: Effort & Inspection: normal respiratory effort Auscultation: clear to auscultation bilaterally Cardio: Rate: regular rate Rhythm: regular rhythm Peripheral pulses: Peripheral pulses 2+ throughout GI: Inspection: Yes normal to inspection Palpation (GI): Soft to palpation and nontender Auscultation: normal bowel sounds Back/Spine/Pelvis: Thoracic/Lumbar Spine: thoracic and lumbar spine normal to inspection Skin: General skin exam: no rashes or lesions noted Neuro: General: patient oriented x3, no focal motor deficits and normal sensation to monofilament Cranial nerves: Yes Equal, round and reactive pupils present Cognition (Neuro): normal cognition Speech: No Abnormal speech present Gait exam (Neuro): Normal gait present Motor exam (neuro): 5/5 motor strength present throughout Extrem: Other: To the volar aspect of the right thumb there are 3 sutures present. No redness, swelling, tenderness or drainage General: Yes normal to inspection Course Course Course Narrative: Here for suture removal. See procedure note. No complaints. Reviewed worrisome signs and symptoms of when to return to the emergency department. Comfortable discharge home. MDM - Skin/Abscess/Foreign Bdy Medical Records Attestation: I reviewed the patient's medical records. Lab Data Attestation: I reviewed the patient's lab results. Procedures Procedure Narrative Procedure Narrative: Three sutures removed from the volar aspect of the right thumb Area cleansed with hydrogen peroxide and normal saline. Topical antibiotic ointment applied Discharge Plan Discharge Clinical Impression: Visit for suture removal Patient Disposition: Home, Self-Care Instructions: Stitches Removal (ED) Prescriptions: No Action naproxen [Naprosyn] 500 mg tablet 500 mg PO BID Qty: 20 RF: 0 psyllium husk [Metamucil] 0.52 gram capsule 0.52 g PO DAILY Qty: 30 RF: 4 famotidine [Pepcid] 20 mg tablet 20 mg PO BEDTIME Qty: 30 RF: 3 simethicone 125 mg capsule 125 mg PO BID-QID PRN (Reason: abdominal distention) Qty: 120 RF: 3 sennosides [Natural Senna Laxative] 8.6 mg tablet 8.6 mg PO BEDTIME PRN (Reason: constipation) Qty: 30 RF: 1 Interventions: ED Discharge Assessment Last Done: 06/18/21 10:34 Discharge Date/Time: 06/18/21 10:35
== END 2021-06-18 10:35 | disposition home or self-care (01) ==
PROVIDERS: Emergency Provider Emergency Medicine Emergency Medical Services; PCP Internal Medicine
DX: Z48.02 Encounter for removal of sutures (principal); F17.210 Nicotine dependence, cigarettes, uncomplicated; Z71.6 Tobacco abuse counseling; Z79.899 Other long term (current) drug therapy
CPT/HCPCS: 99283

== ENCOUNTER 2021-07-11 11:01 | Emergency (ER) | payer MEDICAID, SELFPAY ==
[2021-07-11 12:09] VITALS: BP 120/61; PULSE 79; RESP 20; TEMP 36.8; O2SAT 98; BMI 42.0
[2021-07-11 12:34] LABS: Appearance Urine CLEAR; Color Urine YELLOW; Glucose Urine UA NEG (NEG); Leukocyte Esterase Urine NEG (NEG); Nitrite Urine NEG (NEG); PH 6.5 (5.0-8.0); Urine Blood 3+ (NEG); Urine Ketones NEG (NEG); Urine Protein NEG (NEG-TRACE)
[2021-07-11 12:44] LABS: Mucus Urine 1+ /LPF; Squamous Epithelial Cell Urine 1+ /LPF; WBC Urine 0-2 /HPF (0-4)
--- NOTE | 2021-07-11 13:43 | ED.ABDPAIN ---
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 Mode of arrival: ambulatory Limitations: no limitations History of Present Illness MD elicited complaint: abdominal pain Pertinent past history: diverticulitis Onset (ago): day(s) (3) Pain Consistency: constant Location: RLQ and LLQ Severity: moderate Quality: cramping Radiation: back Migration to: no migration Exacerbating factors: nothing Relieving factors: nothing Context: history of similar episodes (feels just like when she gets diverticulitis) Associated symptoms: chills and constipation Related Data Previous Rx's Medication Instructions Recorded sennosides 8.6 mg tablet (Natural 8.6 mg PO BEDTIME PRN #30 tab 02/16/21 Senna Laxative) simethicone 125 mg capsule 125 mg PO BID-QID PRN #120 cap 02/16/21 naproxen 500 mg tablet (Naprosyn) 500 mg PO BID #20 tab 02/22/21 famotidine 20 mg tablet (Pepcid) 20 mg PO BEDTIME #30 tab 03/18/21 psyllium husk 0.52 gram capsule 0.52 g PO DAILY #30 cap 03/18/21 (Metamucil) ciprofloxacin HCl 500 mg tablet 500 mg PO BID 7 Days #14 tab 07/11/21 morphine 15 mg immediate release 15 mg PO Q6H PRN 3 Days #9 tab 07/11/21 tablet ondansetron 4 mg disintegrating 4 mg PO Q8H PRN #20 tab 07/11/21 tablet ondansetron 4 mg disintegrating 4 mg PO Q8H PRN #20 tab 07/11/21 tablet Allergies Allergy/AdvReac Type Severity Reaction Status Date / Time No Known Allergies [NKA] Allergy Verified 04/22/21 12:35 Review of Systems Review of Systems Constitutional : No Weight loss, No Fever, pos Chills ENT/Mouth : No sore throat, No Rhinorrhea Eyes: No Swelling, No Redness Cardiovascular : No Chest Pain, No SOB, NoEdema Respiratory : No Cough, No Sputum, No Wheezing Gastrointestinal :no Nausea, no Vomiting, no Diarrhea, positive abdominal Pain, No Hematochezia, No Melena, pos constipation Genitourinary : No Dysuria, No Urinary Frequency, No Hematuria, No Urgency Musculoskeletal : No joint pain, No Myalgias, No Joint Swelling Skin : No Skin Lesions, No rash Neuro : No Weakness, No Numbness, No Dizziness, No Headache Psych : No Anxiety/Panic, No Depression Heme/Lymph: No Bruising, No Lymphadenopathy Endocrine : No Polyuria, No Polydipsia All other systems reviewed and are negative. Physical Exam Vital Signs: Vital Signs: Last Vital Signs Temp 98.9 F 07/11/21 15:42 Pulse 89 07/11/21 15:42 Resp 16 07/11/21 15:42 BP 121/74 07/11/21 15:42 Pulse Ox 96 07/11/21 15:42 Body Mass Index 42.0 Appearance: Alert. Oriented X3. No acute distress. Eyes: Pupils equal, round and reactive to light. ENT: Pharynx normal. Neck: Normal inspection. Neck supple. CVS: Normal heart rate and rhythm. Pulses normal. Respiratory: No respiratory distress. Breath sounds normal. Abdomen: Soft and mild lower abdominal ttp no rebound or guarding Skin: Skin warm and dry. Normal skin color. Normal skin turgor. Extremities: No lower extremity edema. No calf ttp Neuro: Oriented X 3. No motor deficit. No sensory deficit. Course Course Course Narrative: moving around well on phone no distress, will treat with oral antibiotics no WBC count labs reassuring stable for DC MDM - Abdominal Pain MDM Narrative Medical decision making narrative: 50 yo female with hx of diverticulitis - comes in with 3 days of constipation but no n/v + flatus and band-like cramping which she experiences with her bouts of diverticulitis - her exam is underwhelming she has stable VS - no fevers, no peritoneal signs doubt abscess. Will obtain basic labs if no sig derangement will avoid repeat CT scan and treat symptomatically. Dispo per results and findings. Lab Data Result diagrams: 07/11/21 15:42 07/11/21 16:16 Labs: Lab Results 07/11/21 07/11/21 Range/Units 12:15 15:42 WBC 8.9 (4.8-10.8) X10*3/uL RBC 4.08 L (4.20-5.50) X10*6/uL Hgb 12.6 (12.0-16.0) g/dl Hct 39.0 (37.0-47.0) % MCV 95.6 (80.0-98.0) fL MCH 30.9 (27.0-33.0) pg MCHC 32.3 (31.0-35.0) g/dl RDW 12.0 (11.0-16.0) % Plt Count 147 L (160-400) X10*3/uL MPV 12.7 H (9.4-12.3) fL Immature Gran % (Auto) 0.3 (0.0-0.4) % Neut % (Auto) 62.1 (45-73) % Lymph % (Auto) 28.2 (20-40) % [place] % (Auto) 8.1 (2-11) % Eos % (Auto) 1.2 (0-4) % Baso % (Auto) 0.1 (0-2) % Lymph # (Auto) 2.5 (1.2-4.9) X10*3/uL [place] # (Auto) 0.7 (0.1-1.2) X10*3/uL Eos # (Auto) 0.1 (0.0-0.4) X10*3/uL Baso # (Auto) 0.0 (0.0-0.2) X10*3/uL Abs Immat Gran (auto) 0.03 (0.00-0.03) X10*3/uL Absolute Neuts (auto) 5.51 (2.0-8.3) x10*3/uL Absolute Nucleated RBC 0.000 (0.0-0.012) X10*3/uL Nucleated RBC % (auto) 0.0 (0.0-0.2) /100WBC Urine Color YELLOW Urine Appearance CLEAR Urine pH 6.5 (5.0-8.0) Ur Specific [place] 1.020 (1.005-1.025) Urine Protein NEG (NEG-TRACE) MG/DL Urine Glucose (UA) NEG (NEG) MG/DL Urine Ketones NEG (NEG) MG/DL Urine Blood 3+ H (NEG) Urine Nitrite NEG (NEG) Ur Leukocyte Esterase NEG (NEG) Urine RBC 15-29 H (0) /HPF Urine WBC 0-2 (0-4) /HPF Ur Squamous Epith Cells 1+ /LPF Urine Bacteria NONE /LPF Urine Mucus 1+ /LPF Discharge Plan Discharge Clinical Impression: Diverticulitis Patient Disposition: Home, Self-Care Instructions: Diverticulitis (ED) Additional Instructions: return to ED for any worsening symptoms or concerns Prescriptions: New ciprofloxacin HCl 500 mg tablet 500 mg PO BID 7 Days Qty: 14 RF: 0 ondansetron 4 mg tablet,disintegrating 4 mg PO Q8H PRN (Reason: nausea and vomiting) Qty: 20 RF: 0 morphine 15 mg tablet 15 mg PO Q6H PRN (Reason: pain) 3 Days Qty: 9 RF: 0 ondansetron 4 mg tablet,disintegrating 4 mg PO Q8H PRN (Reason: nausea and vomiting) Qty: 20 RF: 0 No Action naproxen [Naprosyn] 500 mg tablet 500 mg PO BID Qty: 20 RF: 0 psyllium husk [Metamucil] 0.52 gram capsule 0.52 g PO DAILY Qty: 30 RF: 4 famotidine [Pepcid] 20 mg tablet 20 mg PO BEDTIME Qty: 30 RF: 3 simethicone 125 mg capsule 125 mg PO BID-QID PRN (Reason: abdominal distention) Qty: 120 RF: 3 sennosides [Natural Senna Laxative] 8.6 mg tablet 8.6 mg PO BEDTIME PRN (Reason: constipation) Qty: 30 RF: 1 Print Language: [facility] Past Medical History Medical History Chronic idiopathic constipation Cigarette smoker Diverticulitis Family history of coronary artery bypass graft Hepatic steatosis Obesity (BMI 30-39.9) Screening for colon cancer Smoking Unstable angina pectoris Surgical History H/O colonoscopy Hx of tonsillectomy Morbid obesity Family History Family History Brother Cancer Father Diabetes Mother Diabetes HTN (hypertension) Heart problem Family/Other Diabetes Social History Social History Household Members: Children Housing: House Do you presently have visiting nurse or other home services: No Alcohol intake: never Patient Tobacco Use Status: Never used Tobacco Cigarette Packs Per Day: 0.5 Cigarettes Per Day: 10.0 Second Hand Smoke Exposure: No Advance Directives: No Advance Directives Information Provided: Yes Patient : No
[2021-07-11] MEDS: Ondansetron ODT 4 MG TAB.RAPDIS TRANSLINGU (14:48)
[2021-07-11] MEDS: Morphine Sulfate Immed Release 15 MG TABLET PO (14:48)
[2021-07-11 15:42] VITALS: BP 121/74; PULSE 89; RESP 16; TEMP 37.2; O2SAT 96
[2021-07-11 15:48] LABS: MANUAL DIFF FLAG NO
[2021-07-11 15:49] LABS: Basophils Percent Auto 0.1 % (0-2); Eosinophils Absolute Auto 0.1 X10*3/uL (0.0-0.4); Eosinophils Percent Auto 1.2 % (0-4); Hemoglobin 12.6 g/dl (12.0-16.0); Imm Gran Abs Auto 0.03 X10*3/uL (0.00-0.03); Imm Gran Pct Auto 0.3 % (0.0-0.4); Lymphocytes Absolute Auto 2.5 X10*3/uL (1.2-4.9); Lymphocytes Percent Auto 28.2 % (20-40); Mean Corpuscular HGB Conc 32.3 g/dl (31.0-35.0); Mean Corpuscular Hemoglobin 30.9 pg (27.0-33.0); Mean Corpuscular Volume 95.6 fL (80.0-98.0); Mean Platelet Volume 12.7 fL (9.4-12.3); Monocytes Absolute Auto 0.7 X10*3/uL (0.1-1.2); Monocytes Percent Auto 8.1 % (2-11); Neutrophils Absolute Auto 5.51 x10*3/uL (2.0-8.3); Neutrophils Percent Auto 62.1 % (45-73); Platelet Count 147 X10*3/uL (160-400); Red Blood Count 4.08 X10*6/uL (4.20-5.50); White Blood Count 8.9 X10*3/uL (4.8-10.8)
[2021-07-11 16:39] LABS: Alanine Aminotransferase 32 U/L (0-31); Albumin Level 4.2 g/dL (3.5-5.0); Alkaline Phosphatase 70 U/L (39-117); Anion Gap 12 (12-20); Aspartate Amino Transferase 32 U/L (5-31); Bilirubin Direct 0.2 mg/dL (0.0-0.5); Bilirubin Total 0.4 mg/dL (0.0-1.0); Blood Urea Nitrogen 11 mg/dL (9-16); Calcium 9.1 mg/dL (8.4-10.2); Carbon Dioxide 26 mmol/L (22-29); Chloride 107 mmol/L (96-108); Creatinine Clr Calc Pharmacy 81.9; Estimated Glomerular Filt Rate > 60; Glucose Random 93 mg/dL (60-115); Lipase 40 U/L (8-78); Potassium 4.3 mmol/L (3.3-5.1); Sodium 141 mmol/L (135-145); Total Protein 7.2 g/dL (6.5-8.0)
[2021-07-11 16:43] LABS: Alanine Aminotransferase 31 U/L (0-31); Albumin Level 4.2 g/dL (3.5-5.0); Alkaline Phosphatase 70 U/L (39-117); Anion Gap 11 (12-20); Aspartate Amino Transferase 31 U/L (5-31); Bilirubin Direct 0.2 mg/dL (0.0-0.5); Bilirubin Total 0.4 mg/dL (0.0-1.0); Blood Urea Nitrogen 11 mg/dL (9-16); C Reactive Protein 8.57 mg/dL (< or = 0.50); Carbon Dioxide 26 mmol/L (22-29); Chloride 108 mmol/L (96-108); Creatinine Clr Calc Pharmacy 81.9; Estimated Glomerular Filt Rate > 60; Glucose Random 93 mg/dL (60-115); Lipase 40 U/L (8-78); Potassium 4.3 mmol/L (3.3-5.1); Sodium 141 mmol/L (135-145); Total Protein 7.2 g/dL (6.5-8.0)
== END 2021-07-11 18:05 | disposition home or self-care (01) ==
PROVIDERS: Emergency Provider Emergency Medicine; PCP Internal Medicine
DX: K57.92 Diverticulitis of intestine, part unspecified, without perforation or abscess without bleeding (principal)
CPT/HCPCS: 36415; 80048; 80076; 81001; 83690; 83735; 85025; 86140; 99283; 99284

== ENCOUNTER → 2021-08-16 14:36 | Outpatient (BNVA) | payer MEDICAID, SELFPAY | PROVIDERS: PCP Internal Medicine; Referring Provider Internal Medicine; Visit Provider Nurse Practitioner Family | DX: K59.04 Chronic idiopathic constipation (principal); R10.9 Unspecified abdominal pain; R14.0 Abdominal distension (gaseous); K21.9 Gastro-esophageal reflux disease without esophagitis; K57.90 Diverticulosis of intestine, part unspecified, without perforation or abscess without bleeding | CPT/HCPCS: 99212 ==

== ENCOUNTER 2021-11-14 21:10 | Emergency (ER) | payer MEDICAID, SELFPAY ==
[2021-11-14 21:17] VITALS: BP 134/83; PULSE 87; RESP 18; TEMP 36.4; O2SAT 98; BMI 42.0
[2021-11-14] MEDS: Lidocaine HCl 2 % MPF 5 ML VIAL SUBCUT ×2 (22:04)
--- NOTE | 2021-11-14 22:34 | ED.SKABFB ---
HPI - Skin/Abscess/Foreign Bdy General Chief complaint: Skin/Abscess/Foreign Body Stated complaint: swollen abscess back of head Time Seen by Provider: 11/14/21 21:48 Source: patient Mode of arrival: ambulatory Limitations: no limitations History of Present Illness HPI narrative: This is a 51-year-old female no significant medical history presenting to the emergency department complaints of small bump to the occipital aspect of her head x3 days, and a small bump to the left side of her neck X1 day. She tells me both of these occurred suddenly and they are both painful. He tells me he this is never happened to her before. She denies upper respiratory infection, fevers, chills, nausea, vomiting, sore throat, cough, chest pain, shortness of breath. MD complaint: abscess/boil Onset (ago): day(s) (2) Tetanus up to date: no Location: head Severity: moderate Quality: burning Pain Consistency: constant Relieving factors: none Exacerbating factors: none Context: none Associated symptoms: denies other symptoms Treatments prior to arrival: none Related Data Previous Rx's Medication Instructions Recorded naproxen 500 mg tablet (Naprosyn) 500 mg PO BID #20 tab 02/22/21 famotidine 20 mg tablet (Pepcid) 20 mg PO BEDTIME #30 tab 03/18/21 psyllium husk 0.52 gram capsule 0.52 g PO DAILY #30 cap 03/18/21 (Metamucil) ciprofloxacin HCl 500 mg tablet 500 mg PO BID 7 Days #14 tab 07/11/21 morphine 15 mg immediate release 15 mg PO Q6H PRN 3 Days #9 tab 07/11/21 tablet ondansetron 4 mg disintegrating 4 mg PO Q8H PRN #20 tab 07/11/21 tablet ondansetron 4 mg disintegrating 4 mg PO Q8H PRN #20 tab 07/11/21 tablet bisacodyl 5 mg tablet,delayed 10 mg PO BEDTIME 2 Days #4 tab 07/14/21 release (Dulcolax (bisacodyl)) magnesium citrate 150 ml PO DAILY 30 Days #150 ml 07/14/21 docusate sodium 100 mg capsule 100 mg PO BEDTIME #30 cap 08/16/21 pantoprazole 40 mg tablet,delayed 40 mg PO DAILY #30 tab 08/16/21 release sennosides 8.6 mg tablet (Natural 17.2 mg PO BEDTIME #60 tab 08/16/21 Senna Laxative) simethicone 125 mg capsule 125 mg PO BID-QID PRN #120 cap 08/16/21 doxycycline hyclate 100 mg capsule 100 mg PO BID 10 Days #20 cap 11/14/21 Allergies Allergy/AdvReac Type Severity Reaction Status Date / Time No Known Allergies [NKA] Allergy Verified 11/14/21 21:17 Review of Systems Review of Systems: Constitutional : No Weight loss, No Fever, No Chills, No Fatigue, No Malaise ENT/Mouth : No sore throat, No Rhinorrhea Eyes: No Eye Pain, No Swelling, No Redness Cardiovascular : No Chest Pain, No SOB, No Dyspnea on Exertion, No Orthopnea, No Edema, No Palpitations Respiratory : No Cough, No Sputum, No Wheezing Gastrointestinal : No Nausea, No Vomiting, No Diarrhea, No Constipation, No abdominal Pain, No Hematochezia, No Melena Genitourinary : No Dysuria, No Urinary Frequency, No Hematuria, Musculoskeletal : No joint pain, No Myalgias, No Joint Swelling Skin : No Skin Lesions, No rash, + abscess on head Neuro : No Weakness, No Numbness, No Dizziness, No Headache Psych : No Anxiety/Panic, No Depression All other systems reviewed and are negative Yes all other systems are reviewed and are negative [facility] Past Medical History Medical History Chronic idiopathic constipation Cigarette smoker Diverticulitis Family history of coronary artery bypass graft Hepatic steatosis Obesity (BMI 30-39.9) Screening for colon cancer Smoking Unstable angina pectoris Surgical History H/O colonoscopy Hx of tonsillectomy Morbid obesity Family History Family History Brother Cancer Father Diabetes Mother Diabetes HTN (hypertension) Heart problem Family/Other Diabetes Social History Social History Household Members: Children Housing: House Do you presently have visiting nurse or other home services: No Alcohol intake: never Patient Tobacco Use Status: Never used Tobacco Cigarette Packs Per Day: 0.5 Cigarettes Per Day: 10.0 Second Hand Smoke Exposure: No Advance Directives: No Advance Directives Information Provided: No Patient : No Physical Exam Vital Signs: Vital Signs: Last Vital Signs Temp 97.6 F 11/14/21 21:17 Pulse 87 11/14/21 21:17 Resp 18 11/14/21 21:17 BP 134/83 11/14/21 21:17 Pulse Ox 98 11/14/21 21:17 BMI result Body Mass Index 42.0 VSS Appearance: Alert.? Oriented X3.? No acute distress.? Head: Normocephalic, atraumatic, no step-offs or deformities + occipital lymphadenopathy. Eyes: Pupils equal, round and reactive to light.? ENT: Pharynx normal.? Neck: Normal inspection.? Neck supple.?+ posterior cervical adenopathy on the left normal on the right. CVS: Normal heart rate and rhythm.? Pulses normal.? Respiratory: No respiratory distress.? Breath sounds normal.? Abdomen: Soft and nontender.? Skin: Skin warm and dry.? Normal skin color.? Normal skin turgor.?+ sebaceous cyst to the posterior aspect of head in the occipital region Extremities: No lower extremity edema.? No calf ttp. 5/5 strength to bilateral upper and lower extremities Back: No midline tenderness, no C-spine tenderness, full range of motion, no CVA tenderness bilaterally Neuro: Oriented X 3.? No motor deficit.? No sensory deficit. CN 2-12 intact Course Reevaluation(s) Reevaluation #1: Patient discharged home on doxycycline. Explained to her that this is likely a sebaceous cyst in lymphadenopathy. Advised her to return with new or worsening symptoms. She understands diagnosis and treatment. No questions. Outlined worrisome signs and symptoms on discharge advised her to return if those occur. Comfortable discharge home Time: 22:38 MDM - Skin/Abscess/Foreign Bdy MDM Narrative Medical decision making narrative: [id number] 51 yo f presents w/ painful lumps on occipital aspect of head, and left neck. Upon on physical examination there is a sebaceous cyst to the left posterior occipital aspect of head. There is also occipital adenopathy and left posterior cervical adenopathy noted. Lungs clear. Regular rate and rhythm. Abdomen soft nontender nondistended. Vital signs stable. Incision and drainage with needle was done at the bedside with a 20 G needele and who was there with me for evaluation of patient. Plan at this time is to discharge patient home on antibiotics. Medical Records Attestation: I reviewed the patient's medical records. Lab Data Attestation: I reviewed the patient's lab results. Critical Care Time Critical Care Time Critical Care Time: No Discharge Plan Discharge Clinical Impression: Sebaceous cyst, Lymphadenopathy Patient Disposition: Home, Self-Care Instructions: Lymphadenopathy (ED), Cyst (ED) Additional Instructions: Take your medications as prescribed. If you were prescribed antibiotics today, it is important that you take your medication to their entirety, do not skip any doses, do not finish them early. Follow-up with your primary care provider this week. Return to the emergency department with new or worsening symptoms. Such as fevers, chills, chest pain, shortness of breath, nausea, vomiting, dizziness, headache, vision changes, lethargy In case of emergency call 911 Apply warm compresses to the area. Prescriptions: New doxycycline hyclate 100 mg capsule 100 mg PO BID 10 Days Qty: 20 0RF No Action bisacodyl [Dulcolax (bisacodyl)] 5 mg tablet,delayed release (DR/EC) 10 mg PO BEDTIME 2 Days Qty: 4 0RF magnesium citrate Solution 150 ml PO DAILY 30 Days Qty: 150 0RF naproxen [Naprosyn] 500 mg tablet 500 mg PO BID Qty: 20 0RF ciprofloxacin HCl 500 mg tablet 500 mg PO BID 7 Days Qty: 14 0RF ondansetron 4 mg tablet,disintegrating 4 mg PO Q8H PRN (Reason: nausea and vomiting) Qty: 20 0RF morphine 15 mg tablet 15 mg PO Q6H PRN (Reason: pain) 3 Days Qty: 9 0RF ondansetron 4 mg tablet,disintegrating 4 mg PO Q8H PRN (Reason: nausea and vomiting) Qty: 20 0RF psyllium husk [Metamucil] 0.52 gram capsule 0.52 g PO DAILY Qty: 30 4RF Rx Instructions: long por la manana con un vaso de agua lleno famotidine [Pepcid] 20 mg tablet 20 mg PO BEDTIME Qty: 30 3RF docusate sodium 100 mg capsule 100 mg PO BEDTIME Qty: 30 3RF sennosides [Natural Senna Laxative] 8.6 mg tablet 17.2 mg PO BEDTIME Qty: 60 3RF pantoprazole 40 mg tablet,delayed release (DR/EC) 40 mg PO DAILY Qty: 30 2RF Rx Instructions: take one tablet half an hour before breakfast simethicone 125 mg capsule 125 mg PO BID-QID PRN (Reason: abdominal distention) Qty: 120 3RF Rx Instructions: long un comprimido despues de cada comida hasta cuatro veces al edin Referrals: Physician,Unknown J [Primary Care Provider] - 2 days Stand Alone Forms: Work/School Release
== END 2021-11-14 22:50 | disposition home or self-care (01) ==
PROVIDERS: Emergency Provider Internal Medicine
DX: L72.3 Sebaceous cyst (principal); R59.1 Generalized enlarged lymph nodes; F17.200 Nicotine dependence, unspecified, uncomplicated
CPT/HCPCS: 10060; 99283; 99284

== ENCOUNTER 2021-11-21 19:43 | Emergency (ER) | payer MEDICAID, SELFPAY ==
--- NOTE | ~2021-11-21 | CT_ITS ---
EXAMINATION: CT HEAD WITHOUT CONTRAST CLINICAL INFORMATION: Headache. COMPARISON: CT scan of the head 11/18/2018. TECHNIQUE: Contiguous axial imaging was performed from the skull base to vertex without intravenous administration of contrast. This CT examination was performed using dose optimization techniques as appropriate, variously including the following: *Automated exposure control *Adjustment of mA and/or kV according to patient size (this includes techniques or standardized protocols for targeted exams where dose is matched to indication/reason for exam; i.e. extremities or head) *Use of iterative reconstruction technique DLP: 748 mGy-cm FINDINGS: There is no acute intracranial hemorrhage or abnormal extra-axial collection. No intracranial mass effect or midline shift. Lateral and third ventricles are normal. No hydrocephalus. Faust-white matter differentiation is preserved and there is no evidence of acute territorial infarct. The calvarium and skull base are intact. Mastoid air cells and middle ear cavities are well aerated. No intracranial disease. CT/CT head/brain wo con IMPRESSION: Normal CT scan of the head.
[2021-11-21 20:01] VITALS: BP 123/76; PULSE 88; RESP 17; TEMP 36.6; O2SAT 98; BMI 41.3
--- NOTE | 2021-11-21 20:22 | ED_ITS ---
HPI - Skin/Abscess/Foreign Bdy General Chief complaint: Skin/Abscess/Foreign Body Stated complaint: Bump on head Time Seen by Provider: 11/21/21 20:21 Source: patient and family (daughter) Mode of arrival: ambulatory Limitations: no limitations History of Present Illness HPI narrative: Patient is a 51 year old female presenting to the emergency department today with a headache. Patient states that she has a lump on her scalp that was opened here 1 week ago and she is still having headaches from it. She states that she is still taking her antibiotics but would like to be scanned to make sure it isn 't something more. Patient denies hitting her head or having any loss of consciousness. Patient denies any dizziness, lightheadedness, abdominal pain, nausea, vomiting, fever, chills, blurry vision, double vision, loss of vision, chest pain, difficulty breathing, shortness of breath, back pain, night sweats, pain with urination, increased urinary frequency, increased urinary urgency, blood in her urine or stool, syncope or a near syncopal episode, recent trauma or falls, bowel incontinence, bladder incontinence, bowel retention, bladder retention, or any other complaints at this time. Patient describes the headache as dull and rates it at a 4/10 on the pain scale. She states that it is non- radiating. MD complaint: abscess/boil Onset (ago): day(s) Location: head Severity: mild Severity scale (1-10): 4 Quality: aching Pain Consistency: intermittent Relieving factors: none Exacerbating factors: none Context: none Associated symptoms: denies other symptoms Related Data Previous Rx's Medication Instructions Recorded naproxen 500 mg tablet (Naprosyn) 500 mg PO BID #20 tab 02/22/21 famotidine 20 mg tablet (Pepcid) 20 mg PO BEDTIME #30 tab 03/18/21 psyllium husk 0.52 gram capsule 0.52 g PO DAILY #30 cap 03/18/21 (Metamucil) ciprofloxacin HCl 500 mg tablet 500 mg PO BID 7 Days #14 tab 07/11/21 morphine 15 mg immediate release 15 mg PO Q6H PRN 3 Days #9 tab 07/11/21 tablet ondansetron 4 mg disintegrating 4 mg PO Q8H PRN #20 tab 07/11/21 tablet ondansetron 4 mg disintegrating 4 mg PO Q8H PRN #20 tab 07/11/21 tablet bisacodyl 5 mg tablet,delayed 10 mg PO BEDTIME 2 Days #4 tab 07/14/21 release (Dulcolax (bisacodyl)) magnesium citrate 150 ml PO DAILY 30 Days #150 ml 07/14/21 docusate sodium 100 mg capsule 100 mg PO BEDTIME #30 cap 08/16/21 pantoprazole 40 mg tablet,delayed 40 mg PO DAILY #30 tab 08/16/21 release sennosides 8.6 mg tablet (Natural 17.2 mg PO BEDTIME #60 tab 08/16/21 Senna Laxative) simethicone 125 mg capsule 125 mg PO BID-QID PRN #120 cap 08/16/21 doxycycline hyclate 100 mg capsule 100 mg PO BID 10 Days #20 cap 11/14/21 Allergies Allergy/AdvReac Type Severity Reaction Status Date / Time No Known Allergies [NKA] Allergy Verified 11/14/21 21:17 Review of Systems Constitutional: Constitutional: Reports no additional constitutional complaints, Denies chills, Denies fever(s), Reports headache(s) and Denies night sweats Eyes: Eyes: Reports no additional eye complaints, Denies blurry vision, Denies change in vision, Denies diplopia, Denies eye discharge, Denies loss of vision and Denies eye pain ENT: Denies dizziness and Reports headache(s) Cardiovascular: Cardiovascular: Reports no additional cardiovascular complaints, Denies chest pain, Denies lightheadedness, Denies Loss of Consciousness and Denies dyspnea Respiratory: Respiratory: Reports no additional respiratory complaints and Denies dyspnea Gastrointestinal: Gastrointestinal: Reports no additional gastrointestinal complaints, Denies abdominal pain, Denies melena, Denies hematochezia, Denies change in bowel habits and Denies change in stool character Genitourinary: Genitourinary: Denies hematuria, Denies urinary frequency, Denies dysuria, Denies urinary incontinence, Denies urinary hesitancy and Denies urinary urgency Musculoskeletal: Musculoskeletal: Reports no additional musculoskeletal complaints, Denies numbness and Denies tingling Neurologic: Denies dizziness, Reports headache(s), Denies loss of vision, Denies numbness and Denies tingling Psychiatric: Psychiatric: Reports no additional psychiatric complaints Endocrine: Endocrine: Reports no additional endocrine complaints Hematologic/Lymphatic: Hematologic/Lymphatic: Reports no additional hematologic/lymphatic complaints Allergic/Immunologic: Allergic/Immunologic: Reports no additional allergic/immunologic complaints [facility] Past Medical History Attestation statement: The following information was validated with the patient. Source: old records reviewed Medical History Chronic idiopathic constipation Cigarette smoker Diverticulitis Family history of coronary artery bypass graft Hepatic steatosis Obesity (BMI 30-39.9) Screening for colon cancer Smoking Unstable angina pectoris Surgical History H/O colonoscopy Hx of tonsillectomy Morbid obesity Family History Family History Brother Cancer Father Diabetes Mother Diabetes HTN (hypertension) Heart problem Family/Other Diabetes Social History Social History Household Members: Children Housing: House Do you presently have visiting nurse or other home services: No Alcohol intake: never Patient Tobacco Use Status: Never used Tobacco Cigarette Packs Per Day: 0.5 Cigarettes Per Day: 10.0 Second Hand Smoke Exposure: No Advance Directives: No Advance Directives Information Provided: No Physical Exam Vital Signs: Vital Signs: Last Vital Signs Temp 98.5 F 11/21/21 21:04 Pulse 82 11/21/21 21:04 Resp 18 11/21/21 21:04 BP 116/70 11/21/21 21:04 Pulse Ox 97 11/21/21 21:04 BMI result Body Mass Index 41.3 Const: General: cooperative, no acute distress, alert and awake Nutritional Appearance: well nourished Orientation/consciousness: patient oriented x3 Limitations: no limitations HENMT: Head: Yes normal to inspection and Yes atraumatic Ears: hearing grossly normal bilaterally and external ears normal General nose exam: Normal external nose present, no nasal discharge noted and no epistaxis Face and sinus: Yes normal facial exam, No abrasion and No laceration Mouth: Normal oral and palatal mucosa present, no drooling and no muffled voice Eyes: General: appearance normal, both eyes and all related structures Periorbital: periorbital findings normal Eyelids: Yes eyelids normal Conjunctivae: conjunctivae normal Pupils: Equal, round and reactive pupils present EOM: EOMs intact bilaterally Neck: Neck: Yes normal visual inspection, Yes full ROM and Yes no lymphadenopathy Chest: Chest palpation & inspection: normal inspection of the chest Resp: Effort & Inspection: normal respiratory effort and able to speak in complete sentences Auscultation: clear to auscultation bilaterally Cardio: Rate: regular rate Rhythm: regular rhythm GI: Inspection: Yes normal to inspection Neuro: General: patient oriented x3 and moves all extremities Cranial nerves: Yes Equal, round and reactive pupils present Cognition (Neuro): normal cognition Motor exam (neuro): 5/5 motor strength present throughout Sensory Exam: Normal double simultaneous stimulation for sensation Coordination: [id number] test normal Extrem: General: Yes normal to inspection, Yes full ROM and Yes capillary refill normal Psych: Appearance: grossly normal Mental Status: mental status grossly normal Affect: normal affect Attitude: cooperative Thought process: Normal thought process present Thought content: Normal thought content present Insight: Good insight present (Psych) MDM - Skin/Abscess/Foreign Bdy MDM Narrative Medical decision making narrative: Patient is a 51 year old female presenting to the emergency department today with a headache. Patient's physical exam was unremarkable. I saw no evidence of an abscess or cyst as the patient had previously described. Patient's neurological examination was normal. Patient's head CT showed no acute process. I explained my physical exam findings as well as all test results to the patient and the patient's daughter. I answered all questions asked by the patient and the patient's daughter. Patient received IM Toradol which she stated helped her symptoms significantly. I stressed the importance of the patient taking her medication as prescribed. I stressed the importance of the patient following up with her primary care provider. I stressed the importance of the patient returning to the emergency department immediately if her symptoms were to worsen or if she were to develop any dizziness, shortness of breath, difficulty breathing, chest pain, blurry vision, loss of vision, nausea, vomiting, abdominal pain, fever, chills, back pain, or any other complaints. Patient and the patient's daughter verbalized agreement and understanding with this treatment plan and discharge. Differential Diagnosis Differential diagnosis: Likely abscess of skin or subcutaneous tissue (headache) Medical Records Attestation: I reviewed the patient's medical records. Imaging Data CT scan - head: Attestation: I personally reviewed and interpreted this imaging study as follows: My impression: Normal head CT. Radiologist's impression: EXAMINATION: CT HEAD WITHOUT CONTRAST CLINICAL INFORMATION: Headache.? COMPARISON: CT scan of the head 11/18/2018. TECHNIQUE: Contiguous axial imaging was performed from the skull base to vertex without intravenous administration of contrast. This CT examination was performed using dose optimization techniques as appropriate, variously including the following: *Automated exposure control *Adjustment of mA and/or kV according to patient size (this includes techniques or standardized protocols for targeted exams where dose is matched to indication/reason for exam; i.e. extremities or head) *Use of iterative reconstruction technique DLP: 748 mGy-cm FINDINGS: There is no acute intracranial hemorrhage or abnormal extra-axial collection. No intracranial mass effect or midline shift. Lateral and third ventricles are normal. No hydrocephalus. Faust-white matter differentiation is preserved and there is no evidence of acute territorial infarct. The calvarium and skull base are intact. Mastoid air cells and middle ear cavities are well aerated. No intracranial disease. ? CT/CT head/brain wo con IMPRESSION: Normal CT scan of the head. Dictated By: JOSS YING MD Signed By: Electronically signed by JOSS YING MD 11/21/212125 Discharge Plan Discharge Clinical Impression: Scalp cyst, Headache Patient Disposition: Home, Self-Care Instructions: Acute Headache (ED), Cyst (ED) Additional Instructions: Follow up with a general surgeon. Follow up with your primary care provider. Return to the emergency department immediately if your symptoms worsen or if you develop any dizziness, shortness of breath, difficulty breathing, chest pain, blurry vision, loss of vision, nausea, vomiting, abdominal pain, fever, chills, back pain, or any other complaints. Prescriptions: No Action bisacodyl [Dulcolax (bisacodyl)] 5 mg tablet,delayed release (DR/EC) 10 mg PO BEDTIME 2 Days Qty: 4 0RF magnesium citrate Solution 150 ml PO DAILY 30 Days Qty: 150 0RF naproxen [Naprosyn] 500 mg tablet 500 mg PO BID Qty: 20 0RF ciprofloxacin HCl 500 mg tablet 500 mg PO BID 7 Days Qty: 14 0RF ondansetron 4 mg tablet,disintegrating 4 mg PO Q8H PRN (Reason: nausea and vomiting) Qty: 20 0RF morphine 15 mg tablet 15 mg PO Q6H PRN (Reason: pain) 3 Days Qty: 9 0RF ondansetron 4 mg tablet,disintegrating 4 mg PO Q8H PRN (Reason: nausea and vomiting) Qty: 20 0RF doxycycline hyclate 100 mg capsule 100 mg PO BID 10 Days Qty: 20 0RF psyllium husk [Metamucil] 0.52 gram capsule 0.52 g PO DAILY Qty: 30 4RF Rx Instructions: long por la manana con un vaso de agua lleno famotidine [Pepcid] 20 mg tablet 20 mg PO BEDTIME Qty: 30 3RF docusate sodium 100 mg capsule 100 mg PO BEDTIME Qty: 30 3RF sennosides [Natural Senna Laxative] 8.6 mg tablet 17.2 mg PO BEDTIME Qty: 60 3RF pantoprazole 40 mg tablet,delayed release (DR/EC) 40 mg PO DAILY Qty: 30 2RF Rx Instructions: take one tablet half an hour before breakfast simethicone 125 mg capsule 125 mg PO BID-QID PRN (Reason: abdominal distention) Qty: 120 3RF Rx Instructions: long un comprimido despues de cada comida hasta cuatro veces al edin Referrals: Christelle Rondon MD [Primary Care Provider] - 2 days Masood Santiago MD [Physician] - 2 days Stand Alone Forms: Work/School Release Interventions: ED Discharge Assessment Last Done: 11/21/21 21:52 Discharge Date/Time: 11/21/21 21:53 Print Language: Mohawk
[2021-11-21 21:04] VITALS: BP 116/70; PULSE 82; RESP 18; TEMP 36.9; O2SAT 97
[2021-11-21] MEDS: Ketorolac Tromethamine 30 MG/ML VIAL IM (21:48)
== END 2021-11-21 21:53 | disposition home or self-care (01) ==
PROVIDERS: Emergency Provider Internal Medicine; PCP Internal Medicine
DX: L72.9 Follicular cyst of the skin and subcutaneous tissue, unspecified (principal); R51.9 Headache, unspecified; F17.200 Nicotine dependence, unspecified, uncomplicated
CPT/HCPCS: 70450; 96372; 99284; J1885

== ENCOUNTER 2021-12-29 14:46 | Emergency (ER) | payer MEDICAID, SELFPAY ==
[2021-12-29 15:36] VITALS: BP 142/83; PULSE 103; RESP 16; O2SAT 98; BMI 41.1
--- NOTE | 2021-12-29 15:56 | ED.URI ---
HPI - URI/Sore Throat General Chief Complaint: Upper Respiratory Symptoms Stated Complaint: sore throat congestion body aches Time Seen by Provider: 12/29/21 15:42 Source: patient Mode of arrival: ambulatory Limitations: language barrier (Malian-speaking) History of Present Illness MD elicited complaint: fever, cough, sore throat, rhinorrhea and nasal congestion Onset (ago): day(s) (2) Consistency: constant and progressively worsening Severity: moderate Able to tolerate fluids by mouth: Yes Exacerbating factors: swallowing Relieving factors: nothing Context: sick contacts (Son tested positive for strep throat a few days ago) Associated symptoms: fever, chills, myalgias, headache, rhinorrhea, nasal congestion, sore throat and cough Treatments prior to arrival: none Related Data Previous Rx's Medication Instructions Recorded naproxen 500 mg tablet (Naprosyn) 500 mg PO BID #20 tab 02/22/21 famotidine 20 mg tablet (Pepcid) 20 mg PO BEDTIME #30 tab 03/18/21 psyllium husk 0.52 gram capsule 0.52 g PO DAILY #30 cap 03/18/21 (Metamucil) ciprofloxacin HCl 500 mg tablet 500 mg PO BID 7 Days #14 tab 07/11/21 morphine 15 mg immediate release 15 mg PO Q6H PRN 3 Days #9 tab 07/11/21 tablet ondansetron 4 mg disintegrating 4 mg PO Q8H PRN #20 tab 07/11/21 tablet ondansetron 4 mg disintegrating 4 mg PO Q8H PRN #20 tab 07/11/21 tablet bisacodyl 5 mg tablet,delayed 10 mg PO BEDTIME 2 Days #4 tab 07/14/21 release (Dulcolax (bisacodyl)) magnesium citrate 150 ml PO DAILY 30 Days #150 ml 07/14/21 docusate sodium 100 mg capsule 100 mg PO BEDTIME #30 cap 08/16/21 pantoprazole 40 mg tablet,delayed 40 mg PO DAILY #30 tab 08/16/21 release sennosides 8.6 mg tablet (Natural 17.2 mg PO BEDTIME #60 tab 08/16/21 Senna Laxative) simethicone 125 mg capsule 125 mg PO BID-QID PRN #120 cap 08/16/21 doxycycline hyclate 100 mg capsule 100 mg PO BID 10 Days #20 cap 11/14/21 amoxicillin 875 mg-potassium 1 tab PO BID 10 Days #20 tab 12/29/21 clavulanate 125 mg tablet oseltamivir 75 mg capsule (Tamiflu) 75 mg PO BID 5 Days #10 cap 12/29/21 Allergies Allergy/AdvReac Type Severity Reaction Status Date / Time No Known Allergies [NKA] Allergy Verified 11/14/21 21:17 Review of Systems Review of Systems: Constitutional : + subjective fevers/chills/fatigue/malaise, No Weight loss, No Night Sweats ENT/Mouth : + sore throat/nasal congestion/rhinorrhea, No Hearing loss, No Ear Pain, No Sinus Pain, No Hoarseness, No Swallowing Difficulty Eyes: No Eye Pain, No Swelling, No Redness, No Foreign Body, No Discharge, No Vision Changes Cardiovascular : No Chest Pain, No SOB, No Dyspnea on Exertion, No Orthopnea, No Edema, No Palpitations Respiratory : + Cough, No Sputum, No Wheezing, No Smoke Exposure, No Dyspnea Gastrointestinal : No Nausea, No Vomiting, No Diarrhea, No Constipation, No abdominal Pain, No Hematochezia, No Melena Genitourinary : no irregular bleeding, No Dysuria, No Urinary Frequency, No Hematuria, No Urinary Incontinence, No Urgency, No Flank Pain, No Urinary Flow Changes, No Hesitancy Musculoskeletal : No joint pain, + Myalgias, No Joint Swelling Skin : No Skin Lesions, No rash Neuro : No Weakness, No Numbness, No Paresthesias, No Loss of Consciousness, No Dizziness, No Headache Psych : No Anxiety/Panic, No Depression, No SI/HI/AH/VH, No Social Issues, Heme/Lymph: No Bruising, No Bleeding,No Lymphadenopathy Endocrine : No Polyuria, No Polydipsia, No Temperature Intolerance Yes all other systems are reviewed and are negative [facility] Past Medical History Attestation statement: The following information was validated with the patient. Medical History Chronic idiopathic constipation Cigarette smoker Diverticulitis Family history of coronary artery bypass graft Hepatic steatosis Obesity (BMI 30-39.9) Screening for colon cancer Smoking Unstable angina pectoris Surgical History H/O colonoscopy Hx of tonsillectomy Morbid obesity Family History Family History Brother Cancer Father Diabetes Mother Diabetes HTN (hypertension) Heart problem Family/Other Diabetes Social History Social History Household Members: Children Housing: House Do you presently have visiting nurse or other home services: No Alcohol intake: never Patient Tobacco Use Status: Never used Tobacco Cigarette Packs Per Day: 0.5 Cigarettes Per Day: 10.0 Second Hand Smoke Exposure: No Advance Directives: No Advance Directives Information Provided: Yes Patient : No Physical Exam Vital Signs: Vital Signs: Last Vital Signs Pulse 103 H 12/29/21 15:36 Resp 16 12/29/21 15:36 BP 142/83 H 12/29/21 15:36 Pulse Ox 98 12/29/21 15:36 BMI result Body Mass Index 41.1 vital signs have been reviewed as normal and appeared to be correct. Blood pressure 142/83. Heart rate 103. Respiration rate normal. Temperature normal. Oxygen saturation normal. Appearance: Alert. Oriented X3. No acute distress. Head: Normal external exam. Normocephalic. Atraumatic. Eyes: PERRLA. EOMI. Conjunctiva and sclera normal. Eyelids normal. ENT: EAC normal. TM's Normal. Posterior pharynx erythematous no exudate is noted. Soft and hard palate are within normal limits. Uvula is midline not deviated. Moist mucous membranes. No lesions/ulcerations or masses noted on the tongue. Normal voice. No trismus noted. No drooling noted. No muffled voice noted. Neck: Normal inspection. Neck supple. FROM. No adenopathy. Thyroid Normal. No tracheal deviation noted. No meningeal signs. No neck mass noted. CVS: Normal heart rate and rhythm. Heart sound normal. Pulses normal throughout. No murmurs/rales/gallops. Respiratory: No respiratory distress. Painless inspiration. Breath sounds normal. No wheezes/rales/rhonchi noted. Chest nontender. No crepitus is noted. No accessory muscle usage noted or decreased air movement noted. Back: Full range of motion noted. Nontender. No signs of trauma. Patient neuro intact bilaterally and distally on all 4 extremities. Patient's reflexes intact bilaterally and distally on all 4 extremities. No rashes/lesion/induration/fluctuance or signs of infection noted. Skin: Skin warm and dry. Normal skin color. Normal skin turgor. No rashes/lesions/lacerations noted. Extremities: Extremities exhibit normal range of motion and nontender. Neuro: Oriented X 3. No motor deficit. No sensory deficit. Reflexes normal. Normal steady gait. No focal neuro deficits noted. CN's II-XII intact bilaterally? Vascular: + radial pulses/+ 2 distal pedal pulses/+2 dorsalis pedis b/l. Normal cap refill. No cyanosis noted to upper extremity nails and lower extremity toes nails. Course Course Course Narrative: 51-year-old female presenting to the ED with complaints of subjective fevers, chills, fatigue, malaise, body aches, nasal congestion/rhinorrhea, sore throat and a dry cough for the past 2 days. Reports that she had a negative home COVID test. She was around her son who tested positive for strep few days ago. She denies any other sick contacts. She denies recent travel. She is not vaccinated to COVID or the flu. She denies any other symptoms complaints or concerns at this time. Plan: Will obtain strep/COVID and flu swab if negative will DC home antibiotics for strep and instructions return if any new or worsening symptoms to follow up with primary care provider. Patient understands agrees with this plan. Reevaluation(s) Reevaluation #1: Patient is positive for influenza A. She is negative for COVID and strep although due to patient being exposed to strep will also treat. Patient understands agrees with this plan. Time: 16:24 MDM - URI/Sore Throat Medical Records Attestation: I reviewed the patient's medical records. Lab Data Attestation: I reviewed the patient's lab results. Labs: Lab Results 12/29/21 12/29/21 12/29/21 Range/Units 15:45 15:45 15:45 COVID-19 (FELIX) Negative (Negative) COVID-19 Clin Com See Note Influenza Type A (ALEN) Positive A (Negative) Influenza Type B (ALEN) Negative (Negative) Influenza A & B Note See Note S. pyogenes GrpA ALEN Negative (Negative) Discharge Plan Discharge Clinical Impression: Acute bacterial pharyngitis, Influenza A Patient Disposition: Home, Self-Care Instructions: Pharyngitis (ED), Influenza (DC), Flu Shot (Vaccine) for Adults (ED) Prescriptions: New amoxicillin-pot clavulanate 875-125 mg tablet 1 tab PO BID 10 Days Qty: 20 0RF oseltamivir [Tamiflu] 75 mg capsule 75 mg PO BID 5 Days Qty: 10 0RF No Action bisacodyl [Dulcolax (bisacodyl)] 5 mg tablet,delayed release (DR/EC) 10 mg PO BEDTIME 2 Days Qty: 4 0RF magnesium citrate Solution 150 ml PO DAILY 30 Days Qty: 150 0RF naproxen [Naprosyn] 500 mg tablet 500 mg PO BID Qty: 20 0RF ciprofloxacin HCl 500 mg tablet 500 mg PO BID 7 Days Qty: 14 0RF ondansetron 4 mg tablet,disintegrating 4 mg PO Q8H PRN (Reason: nausea and vomiting) Qty: 20 0RF morphine 15 mg tablet 15 mg PO Q6H PRN (Reason: pain) 3 Days Qty: 9 0RF ondansetron 4 mg tablet,disintegrating 4 mg PO Q8H PRN (Reason: nausea and vomiting) Qty: 20 0RF doxycycline hyclate 100 mg capsule 100 mg PO BID 10 Days Qty: 20 0RF psyllium husk [Metamucil] 0.52 gram capsule 0.52 g PO DAILY Qty: 30 4RF Rx Instructions: long por la [place] con un vaso de agua [place] famotidine [Pepcid] 20 mg tablet 20 mg PO BEDTIME Qty: 30 3RF docusate sodium 100 mg capsule 100 mg PO BEDTIME Qty: 30 3RF sennosides [Natural Senna Laxative] 8.6 mg tablet 17.2 mg PO BEDTIME Qty: 60 3RF pantoprazole 40 mg tablet,delayed release (DR/EC) 40 mg PO DAILY Qty: 30 2RF Rx Instructions: take one tablet half an hour before breakfast simethicone 125 mg capsule 125 mg PO BID-QID PRN (Reason: abdominal distention) Qty: 120 3RF Rx Instructions: long un comprimido despues de cada comida hasta cuatro veces al edin Referrals: Barciona Jorge,Christelle, MD [Primary Care Provider] - Stand Alone Forms: Work/School Release Print Language: Malian
[2021-12-29 16:04] LABS: Strep A Nucleic Acid Negative (Negative)
[2021-12-29 16:18] LABS: COVID-19 Test Negative (Negative)
[2021-12-29 16:19] LABS: IDNOW Serial# 16C4AD1C; Influenza A Positive (Negative); Influenza B2 Negative (Negative)
== END 2021-12-29 16:46 | disposition home or self-care (01) ==
PROVIDERS: Physician Assistant Medical; Emergency Provider Student in an Organized Health Care Education/Training Program; PCP Internal Medicine
DX: J10.1 Influenza due to other identified influenza virus with other respiratory manifestations (principal); M79.10 Myalgia, unspecified site; R51.9 Headache, unspecified; R50.9 Fever, unspecified; R05.9 Cough, unspecified; Z20.822 Contact with and (suspected) exposure to COVID-19; Z71.6 Tobacco abuse counseling
CPT/HCPCS: 87502; 87635; 87651; 99283

== ENCOUNTER 2022-01-14 09:30 | Emergency (ER) | payer MEDICAID, SELFPAY ==
--- NOTE | ~2022-01-14 | CT_ITS ---
EXAMINATION: CT ABDOMEN AND PELVIS WITHOUT CONTRAST CLINICAL INFORMATION: Abdominal pain, constipation, nausea. COMPARISON: CT abdomen 02/22/2021. TECHNIQUE: Multidetector volumetric imaging was performed from the superior aspect of the liver through the pubic symphysis. Sagittal and coronal reformatted images were obtained on the technologist's workstation. This CT examination was performed using dose optimization techniques as appropriate, variously including the following: *Automated exposure control *Adjustment of mA and/or kV according to patient size (this includes techniques or standardized protocols for targeted exams where dose is matched to indication/reason for exam; i.e. extremities or head) *Use of iterative reconstruction technique DLP: 890 mGy-cm FINDINGS: LUNG BASES: Bibasilar atelectasis/dependent changes. LIVER, GALLBLADDER, AND BILIARY TREE: Findings suggest hepatic steatosis. No focal lesions. No biliary duct dilatation. The gallbladder is unremarkable with no evidence of radiopaque gallstones, gallbladder wall thickening, or obvious pericholecystic inflammatory changes. PANCREAS: Unremarkable. SPLEEN: Unremarkable. ADRENAL GLANDS: Unremarkable. KIDNEYS AND URETERS: The kidneys are normal in size, shape, and attenuation. No hydronephrosis, hydroureter, or calculi seen. No perinephric stranding. Redemonstrated is a 5.2 cm (transverse) right renal midpole cyst. BLADDER: Unremarkable. GASTROINTESTINAL TRACT: In the sigmoid colon, there is mural thickening, with diverticuli and pericolonic fat stranding. The findings are suggestive of diverticulitis. Similar findings are seen in the prior CT of 02/22/2021. Small free fluid present in the pelvis. No abnormal drainable collection is identified. No free air. No acute findings in the rest of the large colon. Moderate volume stool in the large colon. No dilated small-bowel loops. Normal appendix. ABDOMINAL WALL: No significant hernia is appreciated. LYMPH NODES: Subcentimeter lymph nodes in the retroperitoneum. Right pelvic sidewall lymph node measuring 0.9 cm in short axis. There are multiple subcentimeter lymph nodes otherwise noted in the pelvis and groin region. VASCULAR: Normal caliber aorta. PELVIC VISCERA: Limited evaluation by CT, grossly within normal limits. BONES: No acute osseous abnormality seen. CT/CT abdomen pelvis wo con IMPRESSION: 1. Findings in the sigmoid colon with wall thickening, pericolonic inflammatory changes and diverticuli. Findings suggest acute diverticulitis. Similar findings were seen on the prior study. Recommend followup imaging to ensure resolution and exclude underlying etiologies. Consideration for sigmoidoscopy/colonoscopy to exclude underlying process as clinically warranted. 2. Small amount of free fluid in the pelvis. 3. There are nonspecific lymph nodes in the pelvis.
[2022-01-14 09:37] VITALS: BP 132/90; PULSE 60; O2SAT 98
--- NOTE | 2022-01-14 09:51 | ED.ABDPAIN ---
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 Had small BM this morning but still feeling rectal pain and pressure. Patient tells me she did take 1 dose of senna and Colace last night and this morning when she woke up she felt a lot of abdominal pain and nausea. She feels like she needs move her bowels but cannot. No fevers, chills, urinary symptoms. Related Data Previous Rx's Medication Instructions Recorded naproxen 500 mg tablet (Naprosyn) 500 mg PO BID #20 tab 02/22/21 famotidine 20 mg tablet (Pepcid) 20 mg PO BEDTIME #30 tab 03/18/21 psyllium husk 0.52 gram capsule 0.52 g PO DAILY #30 cap 03/18/21 (Metamucil) ciprofloxacin HCl 500 mg tablet 500 mg PO BID 7 Days #14 tab 07/11/21 morphine 15 mg immediate release 15 mg PO Q6H PRN 3 Days #9 tab 07/11/21 tablet ondansetron 4 mg disintegrating 4 mg PO Q8H PRN #20 tab 07/11/21 tablet ondansetron 4 mg disintegrating 4 mg PO Q8H PRN #20 tab 07/11/21 tablet bisacodyl 5 mg tablet,delayed 10 mg PO BEDTIME 2 Days #4 tab 07/14/21 release (Dulcolax (bisacodyl)) magnesium citrate 150 ml PO DAILY 30 Days #150 ml 07/14/21 docusate sodium 100 mg capsule 100 mg PO BEDTIME #30 cap 08/16/21 pantoprazole 40 mg tablet,delayed 40 mg PO DAILY #30 tab 08/16/21 release sennosides 8.6 mg tablet (Natural 17.2 mg PO BEDTIME #60 tab 08/16/21 Senna Laxative) simethicone 125 mg capsule 125 mg PO BID-QID PRN #120 cap 08/16/21 doxycycline hyclate 100 mg capsule 100 mg PO BID 10 Days #20 cap 11/14/21 amoxicillin 875 mg-potassium 1 tab PO BID 10 Days #20 tab 12/29/21 clavulanate 125 mg tablet oseltamivir 75 mg capsule (Tamiflu) 75 mg PO BID 5 Days #10 cap 12/29/21 amoxicillin 875 mg-potassium 1 tab PO BID #14 tab 01/14/22 clavulanate 125 mg tablet docusate sodium 100 mg capsule 100 mg PO BID #60 cap 01/14/22 (Colace) polyethylene glycol 3350 17 gram 17 g PO DAILY #30 ea 01/14/22 oral powder packet (Miralax) Allergies Allergy/AdvReac Type Severity Reaction Status Date / Time No Known Allergies [NKA] Allergy Verified 11/14/21 21:17 Review of Systems Review of Systems Yes all other systems are reviewed and are negative Constitutional: Reports no additional constitutional complaints, Denies body ache(s), Denies chills, Denies fever(s), Denies headache(s) and Denies weakness Eyes: Reports no additional eye complaints and Denies change in vision Reports system reviewed and no additional complaints, except as documented, Denies dizziness, Denies headache(s), Denies nasal congestion, Denies nasal discharge and Denies neck pain Cardiovascular: Reports no additional cardiovascular complaints, Denies chest pain, Denies leg edema and Denies dyspnea Respiratory: Reports no additional respiratory complaints, Denies cough and Denies dyspnea Gastrointestinal: Reports no additional gastrointestinal complaints, Reports abdominal pain, Reports constipation, Denies diarrhea, Reports nausea and Denies vomiting Genitourinary: Reports no additional female genitourinary complaints and Denies urinary incontinence Musculoskeletal: Reports no additional musculoskeletal complaints, Denies back pain, Denies arthralgias, Denies joint swelling, Denies neck pain, Denies numbness and Denies tingling Skin/Breast: Reports system reviewed and no additional complaints, except as docu and Denies rash Reports system reviewed and no additional complaints, except as documented, Denies dizziness, Denies headache(s), Denies numbness, Denies tingling and Denies weakness PMFSH Past Medical History Attestation statement: The following information was validated with the patient. Source: old records reviewed and nursing notes reviewed Medical History Chronic idiopathic constipation Cigarette smoker Diverticulitis Family history of coronary artery bypass graft Hepatic steatosis Obesity (BMI 30-39.9) Screening for colon cancer Smoking Unstable angina pectoris Surgical History H/O colonoscopy Hx of tonsillectomy Morbid obesity Family History Family History Brother Cancer Father Diabetes Mother Diabetes HTN (hypertension) Heart problem Family/Other Diabetes Social History Social History Household Members: Children Housing: House Do you presently have visiting nurse or other home services: No Alcohol intake: never Patient Tobacco Use Status: Never used Tobacco Cigarette Packs Per Day: 0.5 Cigarettes Per Day: 10.0 Second Hand Smoke Exposure: No Use of substances other than those prescribed or required for medical reasons: No Advance Directives: No Advance Directives Information Provided: No Physical Exam ED Vital Signs: Vital Signs - 24 hr 01/14/22 09:56 01/14/22 10:00 01/14/22 12:43 Temperature 97.9 F 98.2 F Pulse Rate 87 83 89 Respiratory Rate 16 18 Blood Pressure 147/85 H 112/61 Pulse Oximetry 99 99 95 BMI result Body Mass Index 41.1 Const General: cooperative Nutritional Appearance: obese Orientation/consciousness: patient oriented x3 Limitations: language barrier HENMT Head: Yes normal to inspection Ears: hearing grossly normal bilaterally General nose exam: Normal external nose present Face and sinus: Yes normal facial exam Mouth: Normal oral and palatal mucosa present Teeth and gingiva: dentition normal Throat: Yes posterior oropharynx normal Eyes General: appearance normal, both eyes and all related structures Pupils: Equal, round and reactive pupils present Neck Neck: Yes normal visual inspection, Yes full ROM and Yes no lymphadenopathy Chest Chest palpation & inspection: normal inspection of the chest Resp Auscultation: clear to auscultation bilaterally Cardio Rate: regular rate Rhythm: regular rhythm Peripheral pulses: Peripheral pulses 2+ throughout GI Other: Rectal exam normal. No fecal impaction. 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 Inspection: Yes normal to inspection Palpation (GI): Soft to palpation and Tenderness to palpation present (GI) (Diffusely tender) General: Yes no CVA tenderness Back/Spine/Pelvis Back: no CVA tenderness Skin General skin exam: no rashes or lesions noted Neuro General: patient oriented x3 and moves all extremities Cranial nerves: Yes Equal, round and reactive pupils present Cognition (Neuro): normal cognition Extrem General: Yes normal to inspection, Yes no pedal edema and Yes no calf tenderness Course Course Course Narrative: 51-year-old female here with reports of 1 week of constipation and now with abdominal pain and nausea after taking a dose of senna and Colace last night. On exam the patient has diffuse abdominal pain. No rebound or guarding. Rectal exam normal. Patient quite uncomfortable. Will check labs, UA, CT. Will provide analgesia, antiemetic Reevaluation(s) Reevaluation #1: CT shows diverticulitis. Patient does have a moderate amount of stool. Will give her a Fleet enema prior to discharge. Will plan for discharge home on oral antibiotics, bowel regimen. Time: 13:15 Reevaluation #2: Patient feels improved and had a bowel movement after receiving a Fleet enema. Her abdomen is soft and nontender. She tells me her pain is much improved and she is tolerating p.o.. Will discharge patient home on oral antibiotics and have her follow up with GI outpatient. Reviewed worrisome signs and symptoms of when to return to the emergency department. Comfortable discharge home. Time: 14:58 MDM - Abdominal Pain MDM Narrative Medical decision making narrative: Constipation, small-bowel obstruction, diverticulitis Medical Records Attestation: I reviewed the patient's medical records. Lab Data Attestation: I reviewed the patient's lab results. Result diagrams: 01/14/22 10:32 01/14/22 10:32 Labs: Lab Results 01/14/22 01/14/22 Range/Units 10:32 10:32 WBC 9.5 (4.8-10.8) X10*3/uL RBC 4.41 (4.20-5.50) X10*6/uL Hgb 13.4 (12.0-16.0) g/dl Hct 41.8 (37.0-47.0) % MCV 94.8 (80.0-98.0) fL MCH 30.4 (27.0-33.0) pg MCHC 32.1 (31.0-35.0) g/dl RDW 12.0 (11.0-16.0) % Plt Count 182 (160-400) X10*3/uL MPV 12.4 H (9.4-12.3) fL Immature Gran % (Auto) 0.2 (0.0-0.4) % Neut % (Auto) 77.7 H (45-73) % Lymph % (Auto) 14.3 L (20-40) % Troup % (Auto) 7.1 (2-11) % Eos % (Auto) 0.6 (0-4) % Baso % (Auto) 0.1 (0-2) % Lymph # (Auto) 1.4 (1.2-4.9) X10*3/uL Troup # (Auto) 0.7 (0.1-1.2) X10*3/uL Eos # (Auto) 0.1 (0.0-0.4) X10*3/uL Baso # (Auto) 0.0 (0.0-0.2) X10*3/uL Abs Immat Gran (auto) 0.02 (0.00-0.03) X10*3/uL Absolute Neuts (auto) 7.4 (2.0-8.3) x10*3/uL Absolute Nucleated RBC 0.000 (0.0-0.012) X10*3/uL Nucleated RBC % (auto) 0.0 (0.0-0.2) /100WBC Sodium 139 (135-145) mmol/L Potassium 4.1 (3.3-5.1) mmol/L Chloride 105 (96-108) mmol/L Carbon Dioxide 25 (22-29) mmol/L Anion Gap 13 (12-20) BUN 12 (9-16) mg/dL Creatinine 0.89 (0.5-1.4) mg/dL Estim Creat Clear Calc 83.6 Estimated GFR > 60 Random Glucose 131 H (60-115) mg/dL Calcium 9.7 D (8.4-10.2) mg/dL Total Bilirubin 0.5 (0.0-1.0) mg/dL Direct Bilirubin 0.2 (0.0-0.5) mg/dL AST 32 H (5-31) U/L ALT 32 H (0-31) U/L Alkaline Phosphatase 78 (39-117) U/L Total Protein 7.9 (6.5-8.0) g/dL Albumin 4.2 (3.5-5.0) g/dL Lipase 39 (8-78) U/L Imaging Data CT scan - abdomen: Attestation: I personally reviewed and interpreted this imaging study as follows: Radiologist's impression: FINDINGS: LUNG BASES: Bibasilar atelectasis/dependent changes.? LIVER, GALLBLADDER, AND BILIARY TREE: Findings suggest hepatic steatosis. No focal lesions. No biliary duct dilatation. The gallbladder is unremarkable with no evidence of radiopaque gallstones, gallbladder wall thickening, or obvious pericholecystic inflammatory changes.? PANCREAS: Unremarkable.? SPLEEN: Unremarkable.? ADRENAL GLANDS: Unremarkable.? KIDNEYS AND URETERS: The kidneys are normal in size, shape, and attenuation. No hydronephrosis, hydroureter, or calculi seen. No perinephric stranding. Redemonstrated is a 5.2 cm (transverse) right renal midpole cyst. BLADDER: Unremarkable.? GASTROINTESTINAL TRACT: In the sigmoid colon, there is mural thickening, with diverticuli and pericolonic fat stranding. The findings are suggestive of diverticulitis. Similar findings are seen in the prior CT of 02/22/2021. Small free fluid present in the pelvis. No abnormal drainable collection is identified. No free air. No acute findings in the rest of the large colon. Moderate volume stool in the large colon. No dilated small-bowel loops. Normal appendix. ABDOMINAL WALL: No significant hernia is appreciated.? LYMPH NODES: Subcentimeter lymph nodes in the retroperitoneum. Right pelvic sidewall lymph node measuring 0.9 cm in short axis. There are multiple subcentimeter lymph nodes otherwise noted in the pelvis and groin region. VASCULAR: Normal caliber aorta. PELVIC VISCERA: Limited evaluation by CT, grossly within normal limits. ? BONES: No acute osseous abnormality seen. CT/CT abdomen pelvis wo con IMPRESSION: 1. Findings in the sigmoid colon with wall thickening, pericolonic inflammatory changes and diverticuli. Findings suggest acute diverticulitis. Similar findings were seen on the prior study. Recommend followup imaging to ensure resolution and exclude underlying etiologies. Consideration for sigmoidoscopy/colonoscopy to exclude underlying process as clinically warranted. ? 2. Small amount of free fluid in the pelvis. ? 3. There are nonspecific lymph nodes in the pelvis. Discharge Plan Discharge Clinical Impression: Diverticulitis, Constipation Patient Disposition: Home, Self-Care Instructions: Diverticulitis (ED), Constipation (DC) Additional Instructions: Take the Colace twice daily Take the MiraLax once daily Take the senna only as needed Start your antibiotics Tylenol for pain Prescriptions: New amoxicillin-pot clavulanate 875-125 mg tablet 1 tab PO BID Qty: 14 0RF polyethylene glycol 3350 [Miralax] 17 gram powder in packet 17 g PO DAILY Qty: 30 0RF docusate sodium [Colace] 100 mg capsule 100 mg PO BID Qty: 60 0RF No Action bisacodyl [Dulcolax (bisacodyl)] 5 mg tablet,delayed release (DR/EC) 10 mg PO BEDTIME 2 Days Qty: 4 0RF magnesium citrate Solution 150 ml PO DAILY 30 Days Qty: 150 0RF naproxen [Naprosyn] 500 mg tablet 500 mg PO BID Qty: 20 0RF ciprofloxacin HCl 500 mg tablet 500 mg PO BID 7 Days Qty: 14 0RF ondansetron 4 mg tablet,disintegrating 4 mg PO Q8H PRN (Reason: nausea and vomiting) Qty: 20 0RF morphine 15 mg tablet 15 mg PO Q6H PRN (Reason: pain) 3 Days Qty: 9 0RF ondansetron 4 mg tablet,disintegrating 4 mg PO Q8H PRN (Reason: nausea and vomiting) Qty: 20 0RF doxycycline hyclate 100 mg capsule 100 mg PO BID 10 Days Qty: 20 0RF amoxicillin-pot clavulanate 875-125 mg tablet 1 tab PO BID 10 Days Qty: 20 0RF oseltamivir [Tamiflu] 75 mg capsule 75 mg PO BID 5 Days Qty: 10 0RF psyllium husk [Metamucil] 0.52 gram capsule 0.52 g PO DAILY Qty: 30 4RF Rx Instructions: long por la manana con un vaso de agua [place] famotidine [Pepcid] 20 mg tablet 20 mg PO BEDTIME Qty: 30 3RF docusate sodium 100 mg capsule 100 mg PO BEDTIME Qty: 30 3RF sennosides [Natural Senna Laxative] 8.6 mg tablet 17.2 mg PO BEDTIME Qty: 60 3RF pantoprazole 40 mg tablet,delayed release (DR/EC) 40 mg PO DAILY Qty: 30 2RF Rx Instructions: take one tablet half an hour before breakfast simethicone 125 mg capsule 125 mg PO BID-QID PRN (Reason: abdominal distention) Qty: 120 3RF Rx Instructions: long un comprimido despues de cada comida hasta cuatro veces al edin Referrals: Jigna Esteves MD [Physician] - 1 week Interventions: ED Discharge Assessment Last Done: 01/14/22 14:46 Discharge Date/Time: 01/14/22 14:46 Print Language: Malay
[2022-01-14 09:56] VITALS: BP 147/85; PULSE 87; RESP 16; TEMP 36.6; O2SAT 99; BMI 41.1
[2022-01-14 10:00] VITALS: PULSE 83; O2SAT 99
[2022-01-14 10:36] LABS: MANUAL DIFF FLAG NO
[2022-01-14 10:37] LABS: Basophils Percent Auto 0.1 % (0-2); Eosinophils Absolute Auto 0.1 X10*3/uL (0.0-0.4); Eosinophils Percent Auto 0.6 % (0-4); Hematocrit 41.8 % (37.0-47.0); Hemoglobin 13.4 g/dl (12.0-16.0); Imm Gran Abs Auto 0.02 X10*3/uL (0.00-0.03); Imm Gran Pct Auto 0.2 % (0.0-0.4); Lymphocytes Absolute Auto 1.4 X10*3/uL (1.2-4.9); Lymphocytes Percent Auto 14.3 % (20-40); Mean Corpuscular HGB Conc 32.1 g/dl (31.0-35.0); Mean Corpuscular Hemoglobin 30.4 pg (27.0-33.0); Mean Corpuscular Volume 94.8 fL (80.0-98.0); Mean Platelet Volume 12.4 fL (9.4-12.3); Monocytes Absolute Auto 0.7 X10*3/uL (0.1-1.2); Monocytes Percent Auto 7.1 % (2-11); Neutrophils Absolute Auto 7.4 x10*3/uL (2.0-8.3); Neutrophils Percent Auto 77.7 % (45-73); Platelet Count 182 X10*3/uL (160-400); Red Blood Count 4.41 X10*6/uL (4.20-5.50); White Blood Count 9.5 X10*3/uL (4.8-10.8)
[2022-01-14] MEDS: ondansetron HCL 4 MG/2 ML VIAL IVPUSH (10:38)
[2022-01-14] MEDS: Morphine Sulfate 4 MG/ML CARTRIDGE IVPUSH (10:38)
[2022-01-14 10:58] LABS: Alanine Aminotransferase 32 U/L (0-31); Albumin Level 4.2 g/dL (3.5-5.0); Alkaline Phosphatase 78 U/L (39-117); Anion Gap 13 (12-20); Aspartate Amino Transferase 32 U/L (5-31); Bilirubin Direct 0.2 mg/dL (0.0-0.5); Bilirubin Total 0.5 mg/dL (0.0-1.0); Blood Urea Nitrogen 12 mg/dL (9-16); Calcium 9.7 mg/dL (8.4-10.2); Carbon Dioxide 25 mmol/L (22-29); Chloride 105 mmol/L (96-108); Creatinine Clr Calc Pharmacy 83.6; Estimated Glomerular Filt Rate > 60; Glucose Random 131 mg/dL (60-115); Lipase 39 U/L (8-78); Potassium 4.1 mmol/L (3.3-5.1); Sodium 139 mmol/L (135-145); Total Protein 7.9 g/dL (6.5-8.0)
[2022-01-14 12:43] VITALS: BP 112/61; PULSE 89; RESP 18; TEMP 36.8; O2SAT 95
[2022-01-14] MEDS: Sodium Phosphate,Mono-Dibasic 133 ML ENEMA PR (14:01)
== END 2022-01-14 14:46 | disposition home or self-care (01) ==
PROVIDERS: Nurse Practitioner Family; Emergency Provider Emergency Medicine Emergency Medical Services; PCP Internal Medicine
DX: K57.92 Diverticulitis of intestine, part unspecified, without perforation or abscess without bleeding (principal); K59.00 Constipation, unspecified; F17.210 Nicotine dependence, cigarettes, uncomplicated
CPT/HCPCS: 36415; 74176; 80048; 80076; 83690; 85025; 96374; 96375; 99284; J2270; J2405

== ENCOUNTER 2022-01-18 14:40 | Outpatient (REF) | payer MEDICAID, SELFPAY ==
[2022-01-18 17:04] LABS: Estimated Average Glucose 120 mg/dL; Hemoglobin A1c % 5.8 %
[2022-01-18 17:46] LABS: Folate 15.4 ng/mL (> or = 4.0); Vitamin B12 313 pg/mL (200-900)
[2022-01-24 14:36] LABS: Vitamin D 25-OH, D2 <4 ng/mL; Vitamin D 25-OH, D3 22 ng/mL; Vitamin D 25-OH, Total 22 ng/mL (30-100)
== END 2022-01-18 14:41 | disposition home or self-care (01) ==
LOC: HO.LAB 14:40
PROVIDERS: PCP Internal Medicine; Referring Provider Internal Medicine; Visit Provider Nurse Practitioner Family
DX: R10.9 Unspecified abdominal pain (principal); R14.0 Abdominal distension (gaseous); K57.92 Diverticulitis of intestine, part unspecified, without perforation or abscess without bleeding; K21.9 Gastro-esophageal reflux disease without esophagitis; E55.9 Vitamin D deficiency, unspecified; R19.7 Diarrhea, unspecified; E11.9 Type 2 diabetes mellitus without complications
CPT/HCPCS: 36415; 82306; 82607; 82746; 83036; 84443; 99212

== ENCOUNTER 2022-02-01 18:41 | Emergency (ER) | payer MEDICAID, SELFPAY ==
[2022-02-01 18:56] VITALS: BP 132/84; PULSE 96; O2SAT 96
[2022-02-01 19:59] VITALS: BP 113/64; PULSE 98; RESP 18; TEMP 36.4; O2SAT 95; BMI 39.9
[2022-02-01 20:24] LABS: MANUAL DIFF FLAG NO
[2022-02-01 20:33] LABS: Basophils Percent Auto 0.2 % (0-2); Eosinophils Percent Auto 0.9 % (0-4); Mean Corpuscular HGB Conc 32.7 g/dl (31.0-35.0); Mean Corpuscular Hemoglobin 30.4 pg (27.0-33.0); Mean Platelet Volume 13.5 fL (9.4-12.3); SCAN SMEAR FLAG 1
[2022-02-01 20:35] LABS: Hematocrit 38.5 % (37.0-47.0); Hemoglobin 12.6 g/dl (12.0-16.0); Imm Gran Abs Auto 0.02 X10*3/uL (0.00-0.03); Imm Gran Pct Auto 0.4 % (0.0-0.4); Lymphocytes Absolute Auto 0.3 X10*3/uL (1.2-4.9); Lymphocytes Percent Auto 6.4 % (20-40); Monocytes Absolute Auto 0.6 X10*3/uL (0.1-1.2); Monocytes Percent Auto 13.3 % (2-11); Neutrophils Absolute Auto 3.6 x10*3/uL (2.0-8.3); Neutrophils Percent Auto 78.8 % (45-73); Platelet Count 138 X10*3/uL (160-400); Red Blood Count 4.14 X10*6/uL (4.20-5.50); Red Cell Distribution Width 12.4 % (11.0-16.0); White Blood Count 4.5 X10*3/uL (4.8-10.8)
[2022-02-01 20:40] LABS: Appearance Urine CLEAR; Color Urine YELLOW; Glucose Urine UA NEG (NEG); Leukocyte Esterase Urine NEG (NEG); Nitrite Urine NEG (NEG); Specific Gravity - Urine <= 1.005 (1.005-1.025); UACC Culture Trigger NO; Urine Blood 2+ (NEG); Urine Ketones NEG (NEG); Urine Protein NEG (NEG-TRACE)
[2022-02-01 20:41] LABS: Alanine Aminotransferase 50 U/L (0-31); Albumin Level 4.3 g/dL (3.5-5.0); Alkaline Phosphatase 66 U/L (39-117); Anion Gap 12 (12-20); Aspartate Amino Transferase 42 U/L (5-31); Bilirubin Total 0.3 mg/dL (0.0-1.0); Blood Urea Nitrogen 11 mg/dL (9-16); Calcium 9.6 mg/dL (8.4-10.2); Carbon Dioxide 22 mmol/L (22-29); Chloride 107 mmol/L (96-108); Creatinine Clr Calc Pharmacy 67.1; Estimated Glomerular Filt Rate 53; Glucose Random 100 mg/dL (60-115); Potassium 4.2 mmol/L (3.3-5.1); Sodium 137 mmol/L (135-145); Total Protein 7.7 g/dL (6.5-8.0)
[2022-02-01 20:46] LABS: Squamous Epithelial Cell Urine TRACE /LPF; WBC Urine 0-2 /HPF (0-4)
[2022-02-01 20:46] LABS: PLT ABN DIST 1
[2022-02-02 01:23] VITALS: BP 112/75; PULSE 80; RESP 16; O2SAT 98
--- NOTE | 2022-02-02 01:26 | ED.GENADULT ---
HPI - General Adult General Chief complaint: General Medical Stated complaint: Back pain Time Seen by Provider: 02/02/22 00:17 Source: patient Mode of arrival: ambulatory Limitations: language barrier History of Present Illness HPI narrative: History obtained by translater. patient had chills, nausea, headache with lower back pain. no dysuria, 1 week ago she started having symptoms of back pain. She did not take her temperature. 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 Onset (ago): week(s) Location: back Severity: moderate Pain Consistency: constant Relieving factors: none Associated symptoms: fever/chills and malaise Related Data Home Medications Medication Instructions Recorded Confirmed simethicone 180 mg capsule 180 mg PO TID PRN 01/18/22 Previous Rx's Medication Instructions Recorded naproxen 500 mg tablet (Naprosyn) 500 mg PO BID #20 tab 02/22/21 ondansetron 4 mg disintegrating 4 mg PO Q8H PRN #20 tab 07/11/21 tablet oseltamivir 75 mg capsule (Tamiflu) 75 mg PO BID 5 Days #10 cap 12/29/21 amoxicillin 875 mg-potassium 1 tab PO BID #14 tab 01/14/22 clavulanate 125 mg tablet docusate sodium 100 mg capsule 100 mg PO BID #60 cap 01/18/22 (Colace) pantoprazole 40 mg tablet,delayed 40 mg PO DAILY #90 tab 01/18/22 release polyethylene glycol 3350 17 gram 17 g PO DAILY #100 ea 01/18/22 oral powder packet (Miralax) cholecalciferol (vitamin D3) 50 50 mcg PO DAILY #90 cap 01/24/22 mcg (2,000 unit) capsule doxycycline monohydrate 100 mg 100 mg PO BID #28 cap 02/02/22 capsule Allergies Allergy/AdvReac Type Severity Reaction Status Date / Time No Known Allergies [NKA] Allergy Verified 02/01/22 19:58 Review of Systems Constitutional: Constitutional: Reports no additional constitutional complaints Eyes: Eyes: Reports no additional eye complaints ENT: Denies dizziness Cardiovascular: Cardiovascular: Reports no additional cardiovascular complaints Respiratory: Respiratory: Reports as per HPI Gastrointestinal: Gastrointestinal: Reports no additional gastrointestinal complaints Genitourinary: Genitourinary: Reports no additional female genitourinary complaints Musculoskeletal: Musculoskeletal: Reports no additional musculoskeletal complaints Integumentary/Breasts: Skin/Breast: Denies rash Neurologic: Reports system reviewed and no additional complaints, except as documented, Denies dizziness and Denies Sensory deficit (Neuro) Psychiatric: Psychiatric: Denies anxiety PMFSH Past Medical History Medical History Chronic idiopathic constipation Cigarette smoker Diverticulitis Family history of coronary artery bypass graft Hepatic steatosis Obesity (BMI 30-39.9) Screening for colon cancer Smoking Unstable angina pectoris Surgical History H/O colonoscopy Hx of tonsillectomy Morbid obesity Family History Family History Brother Cancer Father Diabetes Mother Diabetes HTN (hypertension) Heart problem Family/Other Diabetes Social History Social History Household Members: Children Housing: House Do you presently have visiting nurse or other home services: No Alcohol intake: never Patient Tobacco Use Status: Never used Tobacco Cigarette Packs Per Day: 0.5 Cigarettes Per Day: 10.0 Second Hand Smoke Exposure: No Advance Directives: No Advance Directives Information Provided: No Physical Exam ED Vital Signs: Vital Signs - 24 hr 02/01/22 19:59 02/02/22 01:23 Temperature 97.5 F Pulse Rate 98 80 Respiratory Rate 18 16 Blood Pressure 113/64 112/75 Pulse Oximetry 95 98 BMI result Body Mass Index 39.9 Const General: healthy appearing Nutritional Appearance: average body habitus Orientation/consciousness: oriented to person and patient oriented x3 Limitations: no limitations HENMT Head: Yes normal to inspection Ears: external ears normal General nose exam: Normal external nose present Mouth: Normal oral and palatal mucosa present and oropharynx normal Throat: Yes posterior oropharynx normal Eyes General: appearance normal, both eyes and all related structures Neck Neck: Yes normal visual inspection Chest Chest palpation & inspection: normal inspection of the chest Resp Auscultation: clear to auscultation bilaterally Cardio Jugular venous distension: no JVD Rate: regular rate Rhythm: regular rhythm Heart sounds: S1 normal heart sound present and S2 normal heart sound present GI Inspection: Yes normal to inspection Palpation (GI): Soft to palpation, nontender and No hepatosplenomegaly present Auscultation: normal bowel sounds General: Yes no CVA tenderness Back/Spine/Pelvis Back: no CVA tenderness Skin General skin exam: no rashes or lesions noted Neuro General: oriented to person and patient oriented x3 Cranial nerves: Yes CN's II-XII intact bilaterally Motor exam (neuro): 5/5 motor strength present throughout Sensory Exam: No Sensory deficit (Neuro) Extrem General: Yes normal to inspection Psych Appearance: grossly normal Course Reevaluation(s) Reevaluation #1: with leukopenia, thrombocytopenia and elevated LFTs will start on doxycycline for ehrlichiosis Time: 01:38 Medical Decision Making Lab Data Result diagrams: 02/01/22 20:17 02/01/22 20:17 Labs: Lab Results 02/01/22 02/01/22 02/01/22 Range/Units 20:17 20:17 20:19 WBC 4.5 L (4.8-10.8) X10*3/uL RBC 4.14 L (4.20-5.50) X10*6/uL Hgb 12.6 (12.0-16.0) g/dl Hct 38.5 (37.0-47.0) % MCV 93.0 (80.0-98.0) fL MCH 30.4 (27.0-33.0) pg MCHC 32.7 (31.0-35.0) g/dl RDW 12.4 (11.0-16.0) % Plt Count 138 L (160-400) X10*3/uL MPV 13.5 H (9.4-12.3) fL Immature Gran % (Auto) 0.4 (0.0-0.4) % Neut % (Auto) 78.8 H (45-73) % Lymph % (Auto) 6.4 L (20-40) % [place] % (Auto) 13.3 H (2-11) % Eos % (Auto) 0.9 (0-4) % Baso % (Auto) 0.2 (0-2) % Lymph # (Auto) 0.3 L (1.2-4.9) X10*3/uL [place] # (Auto) 0.6 (0.1-1.2) X10*3/uL Eos # (Auto) 0.0 (0.0-0.4) X10*3/uL Baso # (Auto) 0.0 (0.0-0.2) X10*3/uL Abs Immat Gran (auto) 0.02 (0.00-0.03) X10*3/uL Absolute Neuts (auto) 3.6 (2.0-8.3) x10*3/uL Absolute Nucleated RBC 0.000 (0.0-0.012) X10*3/uL Nucleated RBC % (auto) 0.0 (0.0-0.2) /100WBC Sodium 137 (135-145) mmol/L Potassium 4.2 (3.3-5.1) mmol/L Chloride 107 (96-108) mmol/L Carbon Dioxide 22 (22-29) mmol/L Anion Gap 12 (12-20) BUN 11 (9-16) mg/dL Creatinine 1.09 (0.5-1.4) mg/dL Estim Creat Clear Calc 67.1 Estimated GFR 53 Random Glucose 100 (60-115) mg/dL Calcium 9.6 (8.4-10.2) mg/dL Total Bilirubin 0.3 (0.0-1.0) mg/dL AST 42 H (5-31) U/L ALT 50 H (0-31) U/L Alkaline Phosphatase 66 (39-117) U/L Total Protein 7.7 (6.5-8.0) g/dL Albumin 4.3 (3.5-5.0) g/dL Urine Color YELLOW Urine Appearance CLEAR Urine pH 6.0 (5.0-8.0) Ur Specific [place] <= 1.005 (1.005-1.025) Urine Protein NEG (NEG-TRACE) MG/DL Urine Glucose (UA) NEG (NEG) MG/DL Urine Ketones NEG (NEG) MG/DL Urine Blood 2+ H (NEG) Urine Nitrite NEG (NEG) Ur Leukocyte Esterase NEG (NEG) Urine RBC 1-4 (0) /HPF Urine WBC 0-2 (0-4) /HPF Ur Squamous Epith Cells TRACE /LPF Urine Bacteria NONE /LPF Discharge Plan Discharge Clinical Impression: Ehrlichiosis Patient Disposition: Home, Self-Care Instructions: Lyme Disease (ED) Prescriptions: New doxycycline monohydrate 100 mg capsule 100 mg PO BID Qty: 28 0RF No Action cholecalciferol (vitamin D3) 50 mcg (2,000 unit) capsule 50 mcg PO DAILY Qty: 90 3RF naproxen [Naprosyn] 500 mg tablet 500 mg PO BID Qty: 20 0RF amoxicillin-pot clavulanate 875-125 mg tablet 1 tab PO BID Qty: 14 0RF ondansetron 4 mg tablet,disintegrating 4 mg PO Q8H PRN (Reason: nausea and vomiting) Qty: 20 0RF oseltamivir [Tamiflu] 75 mg capsule 75 mg PO BID 5 Days Qty: 10 0RF simethicone 180 mg capsule 180 mg PO TID PRN0RF polyethylene glycol 3350 [Miralax] 17 gram powder in packet 17 g PO DAILY Qty: 100 2RF docusate sodium [Colace] 100 mg capsule 100 mg PO BID Qty: 60 2RF pantoprazole 40 mg tablet,delayed release (DR/EC) 40 mg PO DAILY Qty: 90 2RF Rx Instructions: take one tablet half an hour before breakfast Referrals: Christelle Rondon MD [Primary Care Provider] - 1 week Stand Alone Forms: Work/School Release
--- NOTE | 2022-02-02 01:26 | PC.NURSE ---
at bedside for primary eval.
[2022-02-03 18:47] LABS: A. Phagocytphilium DNA,RT-PCR NOT DETECTED (NOT DETECTED); Babesia Microti DNA, RT-PCR NOT DETECTED (NOT DETECTED); Borrelia Miyamotoi,DNA RT-PCR NOT DETECTED (NOT DETECTED); E.Chaffeensis DNA RT-PCR NOT DETECTED (NOT DETECTED); Lyme(Borrelia ssp)DNA RT-PCR NOT DETECTED (NOT DETECTED); Source-Tick borne disease BLOOD
== END 2022-02-02 02:11 | disposition home or self-care (01) ==
PROVIDERS: Emergency Provider Emergency Medicine; PCP Internal Medicine
DX: A77.40 Ehrlichiosis, unspecified (principal); M54.50 Low back pain, unspecified; R51.9 Headache, unspecified; R50.9 Fever, unspecified; F17.210 Nicotine dependence, cigarettes, uncomplicated; Z79.899 Other long term (current) drug therapy; Z71.6 Tobacco abuse counseling
CPT/HCPCS: 36415; 80053; 81001; 85025; 87798; 87801; 99283

== ENCOUNTER 2022-02-19 21:41 | Emergency (ER) | payer MEDICAID, SELFPAY ==
[2022-02-19 22:13] VITALS: BP 98/49; PULSE 75; RESP 16; TEMP 36.2; O2SAT 97; BMI 39.4
--- NOTE | 2022-02-19 23:23 | ED_ITS ---
HPI - General Adult General Chief complaint: Abdominal Pain Stated complaint: lower abd pain Time Seen by Provider: 02/19/22 23:18 Source: patient Limitations: no limitations History of Present Illness HPI narrative: This is a 51-year-old female who complains of mild pain in her left lower abdomen. The patient does have history of diverticulitis. Patient notes she was seen on February 02 and was put on antibiotics for ?liver inflammation?. She says she thinks she was told she had Jessica. Patient denies any fever. She did have some mild chills today. She denies any vomiting, did have mild nausea. She denies any urinary symptoms. She denies any constipation or diarrhea. Related Data Home Medications Medication Instructions Recorded Confirmed simethicone 180 mg capsule 180 mg PO TID PRN 01/18/22 Previous Rx's Medication Instructions Recorded naproxen 500 mg tablet (Naprosyn) 500 mg PO BID #20 tabs 02/22/21 ondansetron 4 mg disintegrating 4 mg PO Q8H PRN nausea and 07/11/21 tablet vomiting #20 tabs oseltamivir 75 mg capsule (Tamiflu) 75 mg PO BID 5 days #10 caps 12/29/21 amoxicillin 875 mg-potassium 1 tab PO BID #14 tabs 01/14/22 clavulanate 125 mg tablet docusate sodium 100 mg capsule 100 mg PO BID #60 caps 01/18/22 (Colace) pantoprazole 40 mg tablet,delayed 40 mg PO DAILY #90 tabs 01/18/22 release polyethylene glycol 3350 17 gram 17 g PO DAILY #100 ea 01/18/22 oral powder packet (Miralax) cholecalciferol (vitamin D3) 50 50 mcg PO DAILY #90 caps 01/24/22 mcg (2,000 unit) capsule doxycycline monohydrate 100 mg 100 mg PO BID ehrlichiosis #28 caps 02/02/22 capsule Allergies Allergy/AdvReac Type Severity Reaction Status Date / Time No Known Allergies [NKA] Allergy Verified 02/01/22 19:58 Review of Systems Review of Systems: Yes all other systems are reviewed and are negative Constitutional: Constitutional: Reports as per HPI and Denies fever(s) Eyes: Eyes: Reports as per HPI and Reports no additional eye complaints ENT: Reports system reviewed and no additional complaints, except as documented, Reports as per HPI, Denies nasal congestion, Denies nasal discharge and Denies sore throat Cardiovascular: Cardiovascular: Reports as per HPI, Denies chest pain and Yevgeniy es dyspnea Respiratory: Respiratory: Reports as per HPI, Denies cough and Denies dyspnea Gastrointestinal: Gastrointestinal: Reports as per HPI, Reports abdominal pain, Denies diarrhea and Denies vomiting Genitourinary: Genitourinary: Reports as per HPI, Denies hematuria, Denies urinary frequency and Denies dysuria Musculoskeletal: Musculoskeletal: Reports no additional musculoskeletal complaints and Denies numbness Integumentary/Breasts: Skin/Breast: Reports as per HPI and Denies rash Neurologic: Reports as per HPI, Denies focal weakness and Denies numbness Psychiatric: Psychiatric: Reports no additional psychiatric complaints and Reports as per HPI Endocrine: Endocrine: Reports no additional endocrine complaints and Reports as per HPI Hematologic/Lymphatic: Hematologic/Lymphatic: Reports no additional hematologic/lymphatic complaints, Reports as per HPI and Reports other (No peripheral edema) [facility] Past Medical History Medical History Chronic idiopathic constipation Cigarette smoker Diverticulitis Family history of coronary artery bypass graft Hepatic steatosis Obesity (BMI 30-39.9) Screening for colon cancer Smoking Unstable angina pectoris Surgical History H/O colonoscopy Hx of tonsillectomy Morbid obesity Family History Family History Brother Cancer Father Diabetes Mother Diabetes HTN (hypertension) Heart problem Family/Other Diabetes Social History Social History Household Members: Children Housing: House Do you presently have visiting nurse or other home services: No Alcohol intake: never Patient Tobacco Use Status: Never used Tobacco Cigarette Packs Per Day: 0.5 Cigarettes Per Day: 10.0 Second Hand Smoke Exposure: No Advance Directives: No Physical Exam ED Vital Signs: Vital Signs - 24 hr 02/19/22 22:13 02/19/22 23:35 02/20/22 01:49 Temperature 97.2 F 97.8 F 97.9 F Pulse Rate 75 60 53 Respiratory Rate 16 18 17 Blood Pressure 98/49 L 105/61 93/55 L Pulse Oximetry 97 97 100 Oxygen Delivery Method Room Air Room Air Room Air BMI result Body Mass Index 39.4 Const General: no acute distress Orientation/consciousness: patient oriented x3 HENMT Head: Yes normal to inspection General nose exam: Normal external nose present Mouth: moist mucous membranes Throat: Yes posterior oropharynx normal, Yes tonsils normal and Yes uvula midline Eyes Eyelids: Yes eyelids normal Conjunctivae: conjunctivae normal Pupils: Equal, round and reactive pupils present Neck Neck: Yes supple Resp Effort & Inspection: normal respiratory effort Auscultation: clear to auscultation bilaterally Cardio Rate: regular rate Rhythm: regular rhythm Heart sounds: S1 normal heart sound present, S2 normal heart sound present, no gallops, no murmurs and no rubs GI Inspection: No distended Palpation (GI): Soft to palpation and Tenderness to palpation present (GI) (Minimal tenderness left lower quadrant) Auscultation: normal bowel sounds Skin General skin exam: other (Warm and dry) Neuro General: patient oriented x3 and CN's II-XI intact bilaterally Cranial nerves: Yes Equal, round and reactive pupils present Extrem General: Yes no pedal edema Psych Affect: normal affect Attitude: cooperative Medical Decision Making [facility] Narrative Medical decision making narrative: Patient with a mild left lower quadrant pain, no significant tenderness on exam. Patient does have history of diverticulitis. Patient also has been treated for Anaplasmosis recently, although her test with negative. The patient states she did take the course of doxycycline in fact has a few pills left. White blood cell count, chemistry panel, urinalysis all negative. At this point I do not believe antibiotics to treat diverticulitis are indicated, do not believe repeat CT scan of the abdomen is indicated. Will treat the symptoms and the patient and follow up with primary care physician or return if she has worsened abdominal pain Lab Data Lab results reviewed: Yes I reviewed the patient's lab results. Result diagrams: 02/19/22 23:25 02/19/22 23:25 Labs: Lab Results 02/19/22 02/19/22 02/20/22 Range/Units 23:25 23:25 02:09 WBC 6.7 (4.8-10.8) X10*3/uL RBC 4.08 L (4.20-5.50) X10*6/uL Hgb 12.6 (12.0-16.0) g/dl Hct 38.2 (37.0-47.0) % MCV 93.6 (80.0-98.0) fL MCH 30.9 (27.0-33.0) pg MCHC 33.0 (31.0-35.0) g/dl RDW 12.2 (11.0-16.0) % Plt Count 138 L (160-400) X10*3/uL MPV 13.4 H (9.4-12.3) fL Immature Gran % (Auto) 0.1 (0.0-0.4) % Neut % (Auto) 65.1 (45-73) % Lymph % (Auto) 27.4 (20-40) % [place] % (Auto) 6.6 (2-11) % Eos % (Auto) 0.7 (0-4) % Baso % (Auto) 0.1 (0-2) % Lymph # (Auto) 1.8 (1.2-4.9) X10*3/uL [place] # (Auto) 0.4 (0.1-1.2) X10*3/uL Eos # (Auto) 0.1 (0.0-0.4) X10*3/uL Baso # (Auto) 0.0 (0.0-0.2) X10*3/uL Abs Immat Gran (auto) 0.01 (0.00-0.03) X10*3/uL Absolute Neuts (auto) 4.3 (2.0-8.3) x10*3/uL Absolute Nucleated RBC 0.000 (0.0-0.012) X10*3/uL Nucleated RBC % (auto) 0.0 (0.0-0.2) /100WBC Sodium 139 (135-145) mmol/L Potassium 4.4 (3.3-5.1) mmol/L Chloride 106 (96-108) mmol/L Carbon Dioxide 24 (22-29) mmol/L Anion Gap 13 (12-20) BUN 13 (9-16) mg/dL Creatinine 0.91 (0.5-1.4) mg/dL Estim Creat Clear Calc 79.9 Estimated GFR > 60 Random Glucose 132 H (60-115) mg/dL Calcium 9.3 (8.4-10.2) mg/dL Total Bilirubin 0.5 (0.0-1.0) mg/dL AST 33 H (5-31) U/L ALT 32 H (0-31) U/L Alkaline Phosphatase 74 (39-117) U/L Total Protein 7.3 (6.5-8.0) g/dL Albumin 4.1 (3.5-5.0) g/dL Lipase 40 (8-78) U/L Urine Color YELLOW Urine Appearance CLEAR Urine pH 6.0 (5.0-8.0) Ur Specific [place] 1.025 (1.005-1.025) Urine Protein NEG (NEG-TRACE) MG/DL Urine Glucose (UA) NEG (NEG) MG/DL Urine Ketones NEG (NEG) MG/DL Urine Blood 2+ H (NEG) Urine Nitrite NEG (NEG) Ur Leukocyte Esterase NEG (NEG) Urine RBC 1-4 (0) /HPF Urine WBC 1-4 (0-4) /HPF Ur Squamous Epith Cells 2+ /LPF Urine Bacteria 1+ /LPF Urine Mucus 3+ /LPF Discharge Plan Discharge Clinical Impression: Abdominal pain Patient Disposition: Home, Self-Care Instructions: Abdominal Pain (ED) Additional Instructions: Use acetaminophen or ibuprofen for pain. Follow-up with primary care physician. Return for any new or worsened symptoms such as progressively worse abdominal pain, fever. Drink plenty of fluids Prescriptions: No Action cholecalciferol (vitamin D3) 50 mcg (2,000 unit) capsule 50 mcg PO DAILY Qty: 90 3RF naproxen [Naprosyn] 500 mg tablet 500 mg PO BID Qty: 20 0RF amoxicillin-pot clavulanate 875-125 mg tablet 1 tab PO BID Qty: 14 0RF doxycycline monohydrate 100 mg capsule 100 mg PO BID Qty: 28 0RF ondansetron 4 mg tablet,disintegrating 4 mg PO Q8H PRN (Reason: nausea and vomiting) Qty: 20 0RF oseltamivir [Tamiflu] 75 mg capsule 75 mg PO BID 5 Days Qty: 10 0RF simethicone 180 mg capsule 180 mg PO TID PRN polyethylene glycol 3350 [Miralax] 17 gram powder in packet 17 g PO DAILY Qty: 100 2RF docusate sodium [Colace] 100 mg capsule 100 mg PO BID Qty: 60 2RF pantoprazole 40 mg tablet,delayed release (DR/EC) 40 mg PO DAILY Qty: 90 2RF Rx Instructions: take one tablet half an hour before breakfast Interventions: ED Discharge Assessment Last Done: 02/20/22 03:44 Discharge Date/Time: 02/20/22 03:49
[2022-02-19 23:35] VITALS: BP 105/61; PULSE 60; RESP 18; TEMP 36.6; O2SAT 97
[2022-02-19 23:35] LABS: Basophils Percent Auto 0.1 % (0-2); Imm Gran Abs Auto 0.01 X10*3/uL (0.00-0.03); Imm Gran Pct Auto 0.1 % (0.0-0.4); PLT ABN DIST 1; Platelet Count 138 X10*3/uL (160-400); Red Cell Distribution Width 12.2 % (11.0-16.0); SCAN SMEAR FLAG 1; White Blood Count 6.7 X10*3/uL (4.8-10.8)
[2022-02-19 23:36] LABS: Eosinophils Absolute Auto 0.1 X10*3/uL (0.0-0.4); Eosinophils Percent Auto 0.7 % (0-4); Hematocrit 38.2 % (37.0-47.0); Hemoglobin 12.6 g/dl (12.0-16.0); Lymphocytes Absolute Auto 1.8 X10*3/uL (1.2-4.9); Lymphocytes Percent Auto 27.4 % (20-40); Mean Corpuscular Hemoglobin 30.9 pg (27.0-33.0); Mean Corpuscular Volume 93.6 fL (80.0-98.0); Mean Platelet Volume 13.4 fL (9.4-12.3); Monocytes Absolute Auto 0.4 X10*3/uL (0.1-1.2); Monocytes Percent Auto 6.6 % (2-11); Neutrophils Absolute Auto 4.3 x10*3/uL (2.0-8.3); Neutrophils Percent Auto 65.1 % (45-73); Red Blood Count 4.08 X10*6/uL (4.20-5.50)
[2022-02-19 23:39] LABS: MANUAL DIFF FLAG NO
[2022-02-19 23:57] LABS: Alanine Aminotransferase 32 U/L (0-31); Albumin Level 4.1 g/dL (3.5-5.0); Alkaline Phosphatase 74 U/L (39-117); Anion Gap 13 (12-20); Aspartate Amino Transferase 33 U/L (5-31); Bilirubin Total 0.5 mg/dL (0.0-1.0); Blood Urea Nitrogen 13 mg/dL (9-16); Calcium 9.3 mg/dL (8.4-10.2); Carbon Dioxide 24 mmol/L (22-29); Chloride 106 mmol/L (96-108); Creatinine Clr Calc Pharmacy 79.9; Estimated Glomerular Filt Rate > 60; Glucose Random 132 mg/dL (60-115); Lipase 40 U/L (8-78); Potassium 4.4 mmol/L (3.3-5.1); Sodium 139 mmol/L (135-145); Total Protein 7.3 g/dL (6.5-8.0)
[2022-02-20 01:49] VITALS: BP 93/55; PULSE 53; RESP 17; TEMP 36.6; O2SAT 100
[2022-02-20 02:14] LABS: Appearance Urine CLEAR; Color Urine YELLOW; Glucose Urine UA NEG (NEG); Leukocyte Esterase Urine NEG (NEG); Nitrite Urine NEG (NEG); Specific Gravity - Urine 1.025 (1.005-1.025); UACC Culture Trigger NO; Urine Blood 2+ (NEG); Urine Ketones NEG (NEG); Urine Protein NEG (NEG-TRACE)
[2022-02-20 02:20] LABS: Bacteria Urine 1+ /LPF; Mucus Urine 3+ /LPF; Squamous Epithelial Cell Urine 2+ /LPF
== END 2022-02-20 03:49 | disposition home or self-care (01) ==
PROVIDERS: Emergency Provider Emergency Medicine; PCP Internal Medicine
DX: R10.32 Left lower quadrant pain (principal)
CPT/HCPCS: 36415; 80053; 81001; 83690; 85025; 99283; 99284

== ENCOUNTER 2022-03-05 22:02 | Emergency (ER) | payer MEDICAID, SELFPAY ==
--- NOTE | 2022-03-05 22:03 | ED.EAR ---
HPI - Ear Problem General Chief complaint: Ear Problems Stated complaint: bug in ear canal Source: patient and EMS Mode of arrival: EMS Limitations: language barrier History of Present Illness HPI Narrative: 51-year-old female presents via EMS for an insect in her left ear canal. MD Complaint: foreign body Location: left ear Duration: constant Severity: moderate Relieving factors: nothing Exacerbating factors: nothing Discharge from ear: no Treatment prior to arrival: none Related Data Home Medications Medication Instructions Recorded Confirmed simethicone 180 mg capsule 180 mg PO TID PRN 01/18/22 Previous Rx's Medication Instructions Recorded naproxen 500 mg tablet (Naprosyn) 500 mg PO BID #20 tabs 02/22/21 ondansetron 4 mg disintegrating 4 mg PO Q8H PRN nausea and 07/11/21 tablet vomiting #20 tabs oseltamivir 75 mg capsule (Tamiflu) 75 mg PO BID 5 days #10 caps 12/29/21 amoxicillin 875 mg-potassium 1 tab PO BID #14 tabs 01/14/22 clavulanate 125 mg tablet docusate sodium 100 mg capsule 100 mg PO BID #60 caps 01/18/22 (Colace) pantoprazole 40 mg tablet,delayed 40 mg PO DAILY #90 tabs 01/18/22 release polyethylene glycol 3350 17 gram 17 g PO DAILY #100 ea 01/18/22 oral powder packet (Miralax) cholecalciferol (vitamin D3) 50 50 mcg PO DAILY #90 caps 01/24/22 mcg (2,000 unit) capsule doxycycline monohydrate 100 mg 100 mg PO BID ehrlichiosis #28 caps 02/02/22 capsule Allergies Allergy/AdvReac Type Severity Reaction Status Date / Time No Known Allergies [NKA] Allergy Verified 02/01/22 19:58 Review of Systems Review of Systems: Constitutional: No Fever, No Chills ENT/Mouth: Positive insect in left ear canal, No Ear Pain, No Hoarseness, No sore throat Eyes: No Eye Pain, No Swelling, No Redness, No Foreign Body Cardiovascular: No Chest Pain, No SOB Respiratory: No Cough, No Dyspnea Gastrointestinal: No Nausea, No Vomiting, No Diarrhea, No abdominal Pain Genitourinary: No Dysuria, No Hematuria Musculoskeletal: No joint pain, No Myalgias, No Joint Swelling Skin: No Skin lacerations, No rash Neuro: No Weakness, No Numbness, No Paresthesias, No Loss of Consciousness, No Dizziness, No Headache Psych: No Anxiety/Panic, No Depression Heme/Lymph: no easy bruising, no Lymphadenopathy Endocrine: No Polyuria, No Polydipsia Yes all other systems are reviewed and are negative [facility] Past Medical History Attestation statement: The following information was validated with the patient. Source: old records reviewed Medical History Cigarette smoker Diverticulitis Family history of coronary artery bypass graft Hepatic steatosis Smoking Unstable angina pectoris Surgical History H/O colonoscopy Hx of tonsillectomy Morbid obesity Family History Family History Brother Cancer Father Diabetes Mother Diabetes HTN (hypertension) Heart problem Family/Other Diabetes Social History Social History Household Members: Children Housing: House Do you presently have visiting nurse or other home services: No Alcohol intake: never Patient Tobacco Use Status: Never used Tobacco Cigarette Packs Per Day: 0.5 Cigarettes Per Day: 10.0 Second Hand Smoke Exposure: No Advance Directives: No Advance Directives Information Provided: No Physical Exam Vital Signs: Vital Signs: Last Vital Signs Temp 97.8 F 03/05/22 22:15 Pulse 83 03/05/22 22:15 Resp 20 03/05/22 22:15 BP 128/78 03/05/22 22:15 Pulse Ox 96 03/05/22 22:15 O2 Del Method 03/05/22 22:15 BMI result Body Mass Index 41.1 Appearance: Alert. Oriented X3. No acute distress. Eyes: Pupils equal, round and reactive to light. ENT: Pharynx normal. Left tympanic membrane intact status post insect removal. Neck: Normal inspection. Neck supple. CVS: Normal heart rate and rhythm. Pulses normal. Respiratory: No respiratory distress. Breath sounds normal. Abdomen: Soft and nontender. Skin: Skin warm and dry. Normal skin color. Normal skin turgor. Extremities: No lower extremity edema. Gait well balanced well coordinated. Neuro: No motor deficit. No sensory deficit. Cranial nerves 2-12 intact. Course Course Course Narrative: 51-year-old female presents for insect to the left ear canal. Left ear flushed with half lidocaine half saline 10 mL, moth removed from the ear canal without any difficulty. Visual inspection of the canal was normal. Tympanic membrane intact. EMS interpreted for this [employer]. Plan of care to discharge home. Patient verbalized understanding of and agrees plan of care discharge home. Verbalized understanding of signs and symptoms indicating need for emergent intervention. MDM - Ear Differential Diagnosis Differential diagnosis: Likely foreign body in ear Medical Records Attestation: I reviewed the patient's medical records. Discharge Plan Discharge Clinical Impression: Acute foreign body of left ear canal Patient Disposition: Home, Self-Care Instructions: Ear Foreign Body (ED) Additional Instructions: Fuiste evaluado por insectos en el o?do adonis. Pudimos quitarlo sin dificultad. Gabi por elegir dameon departamento de emergencias para mendiola evaluaci?n. Por favor, didi un seguimiento con el m?dico de atenci?n primaria seg?n sea necesario. Regrese al departamento de emergencias por cualquier s?ntoma nuevo, preocupante o que empeore You were evaluated for insect in the left ear. We were able to remove it without difficulty. Thank you for choosing this emergency department for evaluation. Please follow-up with primary care physician as needed. Return to the emergency department for any new, concerning, or worsening symptoms. Prescriptions: No Action cholecalciferol (vitamin D3) 50 mcg (2,000 unit) capsule 50 mcg PO DAILY Qty: 90 3RF naproxen [Naprosyn] 500 mg tablet 500 mg PO BID Qty: 20 0RF amoxicillin-pot clavulanate 875-125 mg tablet 1 tab PO BID Qty: 14 0RF doxycycline monohydrate 100 mg capsule 100 mg PO BID Qty: 28 0RF ondansetron 4 mg tablet,disintegrating 4 mg PO Q8H PRN (Reason: nausea and vomiting) Qty: 20 0RF oseltamivir [Tamiflu] 75 mg capsule 75 mg PO BID 5 Days Qty: 10 0RF simethicone 180 mg capsule 180 mg PO TID PRN polyethylene glycol 3350 [Miralax] 17 gram powder in packet 17 g PO DAILY Qty: 100 2RF docusate sodium [Colace] 100 mg capsule 100 mg PO BID Qty: 60 2RF pantoprazole 40 mg tablet,delayed release (DR/EC) 40 mg PO DAILY Qty: 90 2RF Rx Instructions: take one tablet half an hour before breakfast Referrals: Christelle Rondon MD [Primary Care Provider] - Interventions: ED Discharge Assessment Last Done: 03/05/22 22:19 Discharge Date/Time: 03/05/22 22:20
[2022-03-05 22:13] VITALS: BP 132/74; PULSE 89; O2SAT 96
[2022-03-05 22:15] VITALS: BP 128/78; PULSE 83; RESP 20; TEMP 36.6; O2SAT 96; BMI 41.1
[2022-03-05] MEDS: Lidocaine HCl 1 % MPF 5 ML VIAL SUBCUT (22:17)
== END 2022-03-05 22:20 | disposition home or self-care (01) ==
PROVIDERS: Emergency Provider Internal Medicine; PCP Internal Medicine
DX: T16.2XXA Foreign body in left ear, initial encounter (principal); X58.XXXA Exposure to other specified factors, initial encounter; Y93.9 Activity, unspecified; Y92.9 Unspecified place or not applicable; Y99.9 Unspecified external cause status
CPT/HCPCS: 99282; 99284

== ENCOUNTER → 2022-04-14 14:35 | Outpatient (BNVA) | payer MEDICAID, SELFPAY | PROVIDERS: PCP Internal Medicine; Visit Provider Nurse Practitioner Family | DX: R30.0 Dysuria (principal); K64.9 Unspecified hemorrhoids; K59.04 Chronic idiopathic constipation; R14.0 Abdominal distension (gaseous); R10.9 Unspecified abdominal pain; B37.0 Candidal stomatitis | CPT/HCPCS: 99212 ==

== ENCOUNTER 2022-04-22 10:13 | Outpatient (REF) | payer MEDICAID, SELFPAY ==
[2022-04-22 10:55] LABS: Appearance Urine CLEAR; Color Urine YELLOW; Glucose Urine UA NEG (NEG); Leukocyte Esterase Urine NEG (NEG); Nitrite Urine NEG (NEG); UACC Culture Trigger NO; Urine Blood 2+ (NEG); Urine Ketones NEG (NEG); Urine Protein NEG (NEG-TRACE)
[2022-04-22 11:55] LABS: Bacteria Urine TRACE /LPF; Squamous Epithelial Cell Urine 2+ /LPF
== END 2022-04-22 10:14 | disposition home or self-care (01) ==
LOC: HO.LAB 10:13
PROVIDERS: PCP Internal Medicine; Visit Provider Nurse Practitioner Family
DX: R30.0 Dysuria (principal)
CPT/HCPCS: 81001; 81003

== ENCOUNTER 2022-05-13 20:17 | Emergency (ER) | payer MEDICAID, SELFPAY ==
--- NOTE | ~2022-05-13 | CT_ITS ---
EXAMINATION: CT ABDOMEN AND PELVIS WITHOUT CONTRAST CLINICAL INFORMATION: Left flank pain COMPARISON: 01/14/2022 and 02/22/2021 TECHNIQUE: Multidetector volumetric imaging was performed from the superior aspect of the liver through the pubic symphysis. Sagittal and coronal reformatted images were obtained on the technologist's workstation. This CT examination was performed using dose optimization techniques as appropriate, variously including the following: *Automated exposure control *Adjustment of mA and/or kV according to patient size (this includes techniques or standardized protocols for targeted exams where dose is matched to indication/reason for exam; i.e. extremities or head) *Use of iterative reconstruction technique DLP: 743 mGy-cm FINDINGS: LUNG BASES: Clear LIVER, GALLBLADDER, AND BILIARY TREE: Liver normal in size, contour and morphology. Diffuse hepatic steatosis. No focal liver lesions. No biliary dilatation. Gallbladder unremarkable. PANCREAS: Unremarkable. SPLEEN: Unremarkable. ADRENAL GLANDS: Unremarkable. KIDNEYS AND URETERS: The kidneys are normal in size, shape, and attenuation. Stable benign cyst in the right kidney does not require follow-up. No hydronephrosis, hydroureter, or calculi seen. No perinephric stranding. BLADDER: Unremarkable. GASTROINTESTINAL TRACT: Sigmoid diverticulosis complicated by diverticulitis as evidence by segmental wall thickening of the sigmoid colon, pericolic fat stranding and adjacent reactive lymph nodes within the sigmoid mesocolon. Wall thickening appears eccentric along the left lateral aspect of the distal sigmoid colon / rectosigmoid junction. No pericolic fluid collection to suggest abscess formation. No intraperitoneal free air. Stomach and small bowel unremarkable. Normal appendix ABDOMINAL WALL: No significant hernia is appreciated. LYMPH NODES: Shotty retroperitoneal lymph nodes measure up to 7 mm short axis, similar to the prior examination, but increased in size since February 2021 as discussed above, there are small lymph nodes in the sigmoid mesocolon as well. VASCULAR: Unremarkable. PELVIC VISCERA: Unremarkable retroflexed uterus. No adnexal abnormalities. Small pelvic free fluid is reactive. OSSEOUS STRUCTURES: No acute or suspicious osseous abnormalities. CT/CT abdomen pelvis wo IV con IMPRESSION: * Again seen are changes of acute uncomplicated sigmoid colonic diverticulitis complicating chronic diverticular disease. There is eccentric wall thickening along the left lateral aspect of the distal sigmoid colon/rectosigmoid junction which may relate to this process, however an underlying rectosigmoid mass must be excluded with colonoscopy (if not already performed) after acute symptoms resolve. * Shotty retroperitoneal lymph nodes are similar in size to January 2022 but demonstrably larger since February 2021. These could also be reactive, however malignancy is also possible. * Hepatic steatosis.
[2022-05-13 21:42] VITALS: BP 112/71; PULSE 94; RESP 20; TEMP 37.2; O2SAT 96; BMI 40.2
[2022-05-13 21:49] LABS: MANUAL DIFF FLAG NO
[2022-05-13 22:08] LABS: Basophils Percent Auto 0.2 % (0-2); Eosinophils Absolute Auto 0.1 X10*3/uL (0.0-0.4); Eosinophils Percent Auto 0.5 % (0-4); Hematocrit 38.7 % (37.0-47.0); Hemoglobin 12.9 g/dl (12.0-16.0); Imm Gran Abs Auto 0.04 X10*3/uL (0.00-0.03); Imm Gran Pct Auto 0.4 % (0.0-0.4); Lymphocytes Absolute Auto 1.5 X10*3/uL (1.2-4.9); Lymphocytes Percent Auto 14.9 % (20-40); Mean Corpuscular HGB Conc 33.3 g/dl (31.0-35.0); Mean Corpuscular Hemoglobin 30.9 pg (27.0-33.0); Mean Corpuscular Volume 92.6 fL (80.0-98.0); Mean Platelet Volume 12.8 fL (9.4-12.3); Monocytes Absolute Auto 0.7 X10*3/uL (0.1-1.2); Monocytes Percent Auto 6.8 % (2-11); Neutrophils Absolute Auto 7.9 x10*3/uL (2.0-8.3); Neutrophils Percent Auto 77.2 % (45-73); Platelet Count 170 X10*3/uL (160-400); Red Blood Count 4.18 X10*6/uL (4.20-5.50); Red Cell Distribution Width 12.1 % (11.0-16.0); White Blood Count 10.2 X10*3/uL (4.8-10.8)
[2022-05-13 22:17] LABS: Alanine Aminotransferase 27 U/L (0-31); Albumin Level 4.3 g/dL (3.5-5.0); Alkaline Phosphatase 72 U/L (39-117); Anion Gap 16 (12-20); Aspartate Amino Transferase 33 U/L (5-31); Bilirubin Direct 0.2 mg/dL (0.0-0.5); Bilirubin Total 0.4 mg/dL (0.0-1.0); Blood Urea Nitrogen 13 mg/dL (9-16); Calcium 9.3 mg/dL (8.4-10.2); Carbon Dioxide 23 mmol/L (22-29); Chloride 105 mmol/L (96-108); Creatinine Clr Calc Pharmacy 72.1; Estimated Glomerular Filt Rate 57; Glucose Random 128 mg/dL (60-115); Lipase 33 U/L (8-78); Potassium 4.4 mmol/L (3.3-5.1); Sodium 140 mmol/L (135-145); Total Protein 7.9 g/dL (6.5-8.0)
[2022-05-14 00:01] VITALS: BP 138/77; PULSE 92; RESP 18; TEMP 37.1; O2SAT 95
[2022-05-14 00:02] LABS: Appearance Urine Clear; Color Urine Yellow; Glucose Urine UA Negative (Negative); Leukocyte Esterase Urine Small (1+) (Negative); Nitrite Urine Negative (Negative); PH 7.5 (5.0-9.0); Urine Blood Moderate (2+) (Negative); Urine Ketones Trace mg/dL (Negative); Urine Protein Trace mg/dL (Neg-Trace)
[2022-05-14 00:04] LABS: Bacteria Urine None Seen (None Seen); Hyaline Casts Urine 0-2 /LPF (0-2); RBC Urine >20 /HPF (0-2); UACC Culture Trigger YES
--- NOTE | 2022-05-14 01:39 | ED.ABDPAIN ---
HPI - Abdominal Pain General Chief Complaint: Abdominal Pain Stated Complaint: diverticulitis? Time Seen by Provider: 05/14/22 00:48 Source: patient Mode of arrival: ambulatory History of Present Illness HPI narrative: 51-year-old female with history of diverticulitis presents with 4 days of increasing left flank pain with radiation to the groin area in associated with nausea as well as chills. She reports she is also having urinary symptoms with burning and frequency. Related Data Home Medications Medication Instructions Recorded Confirmed simethicone 180 mg capsule 180 mg PO TID PRN 01/18/22 Previous Rx's Medication Instructions Recorded naproxen 500 mg tablet (Naprosyn) 500 mg PO BID #20 tabs 02/22/21 ondansetron 4 mg disintegrating 4 mg PO Q8H PRN nausea and 07/11/21 tablet vomiting #20 tabs oseltamivir 75 mg capsule (Tamiflu) 75 mg PO BID 5 days #10 caps 12/29/21 amoxicillin 875 mg-potassium 1 tab PO BID #14 tabs 01/14/22 clavulanate 125 mg tablet pantoprazole 40 mg tablet,delayed 40 mg PO DAILY #90 tabs 01/18/22 release cholecalciferol (vitamin D3) 50 50 mcg PO DAILY #90 caps 01/24/22 mcg (2,000 unit) capsule doxycycline monohydrate 100 mg 100 mg PO BID ehrlichiosis #28 caps 02/02/22 capsule docusate sodium 100 mg capsule 100 mg PO BID #180 caps 04/14/22 (Colace) hydrocortisone 2.5 % topical cream 1 appl [place] BID-QID PRN hemorrhoids 04/14/22 with perineal applicator #30 grams (Proctosol HC) polyethylene glycol 3350 17 gram 17 g PO DAILY #100 ea 04/14/22 oral powder packet (Miralax) fluconazole 200 mg tablet 200 mg PO DAILY 10 days #10 tabs 05/02/22 (Diflucan) lactobacillus combination no.4 3 3,000 mmu cells PO DAILY #30 caps 05/02/22 billion cell capsule (Probiotic) Allergies Allergy/AdvReac Type Severity Reaction Status Date / Time No Known Allergies [NKA] Allergy Verified 04/14/22 14:54 Review of Systems Review of Systems Pertinent positives and negatives as stated in HPI 10 point review of systems is otherwise negative. PMFSH Past Medical History Source: nursing notes reviewed Medical History Chronic idiopathic constipation Cigarette smoker Diverticulitis Family history of coronary artery bypass graft Hepatic steatosis Obesity (BMI 30-39.9) Screening for colon cancer Smoking Unstable angina pectoris Surgical History H/O colonoscopy Hx of tonsillectomy Morbid obesity Family History Family History Brother Cancer Father Diabetes Mother Diabetes HTN (hypertension) Heart problem Family/Other Diabetes Social History Social History Household Members: Children Housing: House Do you presently have visiting nurse or other home services: No Alcohol intake: never Patient Tobacco Use Status: Never used Tobacco Cigarette Packs Per Day: 0.5 Cigarettes Per Day: 10.0 Second Hand Smoke Exposure: No Advance Directives: No Advance Directives Information Provided: No Physical Exam ED Vital Signs: Vital Signs - 24 hr 05/13/22 21:42 05/14/22 00:01 Temperature 99.0 F 98.7 F Pulse Rate 94 92 Respiratory Rate 20 18 Blood Pressure 112/71 138/77 Pulse Oximetry 96 95 Oxygen Delivery Method Room Air Room Air BMI result Body Mass Index 40.2 VITAL SIGNS: Reviewed. GENERAL: Well developed, well nourished, in no acute distress. HEAD: Normocephalic/atraumatic EYES: PERRLA, EOMI EARS: Ext canals without abnormality OROPHARYNX: no oral lesions noted, posterior pharynx clear LUNGS: Normal breath sounds. No adventitious sounds or accessory muscle use. SpO2<95> CARDIOVASCULAR: Regular rate and rhythm without noted murmurs ABDOMEN: Soft, Left flank pain, no CVA tenderness,, non-distended with bowel sounds. MUSCULOSKELETAL: No tenderness, deformities, or effusions noted on gross inspection. EXTREMITIES: No cyanosis, clubbing or edema. SKIN: Inspection of the skin reveals no rashes NEUROLOGIC: Alert and oriented x 4. Strength and sensation to light touch were grossly intact x 4. Course Course Course Narrative: 51-year-old female with history and clinical presentation more consistent with likely renal colic/UTI and low clinical suspicion for diverticulitis. On review of all investigations urinalysis demonstrates significant hematuria and will proceed with CT scan of abdomen pelvis for evaluation of renal colic. Signed out to Dr Worley. MDM - Abdominal Pain Lab Data Result diagrams: 05/13/22 21:45 05/13/22 21:45 Labs: Lab Results 05/13/22 05/13/22 05/13/22 Range/Units 21:45 21:45 23:54 WBC 10.2 (4.8-10.8) X10*3/uL RBC 4.18 L (4.20-5.50) X10*6/uL Hgb 12.9 (12.0-16.0) g/dl Hct 38.7 (37.0-47.0) % MCV 92.6 (80.0-98.0) fL MCH 30.9 (27.0-33.0) pg MCHC 33.3 (31.0-35.0) g/dl RDW 12.1 (11.0-16.0) % Plt Count 170 (160-400) X10*3/uL MPV 12.8 H (9.4-12.3) fL Immature Gran % (Auto) 0.4 (0.0-0.4) % Neut % (Auto) 77.2 H (45-73) % Lymph % (Auto) 14.9 L (20-40) % [place] % (Auto) 6.8 (2-11) % Eos % (Auto) 0.5 (0-4) % Baso % (Auto) 0.2 (0-2) % Lymph # (Auto) 1.5 (1.2-4.9) X10*3/uL [place] # (Auto) 0.7 (0.1-1.2) X10*3/uL Eos # (Auto) 0.1 (0.0-0.4) X10*3/uL Baso # (Auto) 0.0 (0.0-0.2) X10*3/uL Abs Immat Gran (auto) 0.04 H (0.00-0.03) X10*3/uL Absolute Neuts (auto) 7.9 (2.0-8.3) x10*3/uL Absolute Nucleated RBC 0.000 (0.0-0.012) X10*3/uL Nucleated RBC % (auto) 0.0 (0.0-0.2) /100WBC Sodium 140 (135-145) mmol/L Potassium 4.4 (3.3-5.1) mmol/L Chloride 105 (96-108) mmol/L Carbon Dioxide 23 (22-29) mmol/L Anion Gap 16 (12-20) BUN 13 (9-16) mg/dL Creatinine 1.02 (0.5-1.4) mg/dL Estim Creat Clear Calc 72.1 Estimated GFR 57 Random Glucose 128 H (60-115) mg/dL Calcium 9.3 (8.4-10.2) mg/dL Total Bilirubin 0.4 (0.0-1.0) mg/dL Direct Bilirubin 0.2 (0.0-0.5) mg/dL AST 33 H (5-31) U/L ALT 27 (0-31) U/L Alkaline Phosphatase 72 (39-117) U/L Total Protein 7.9 (6.5-8.0) g/dL Albumin 4.3 (3.5-5.0) g/dL Lipase 33 (8-78) U/L Urine Color Yellow Urine Appearance Clear Urine pH 7.5 (5.0-9.0) Ur Specific [place] 1.020 (1.005-1.025) Urine Protein Trace (Neg-Trace) mg/dL Urine Glucose (UA) Negative (Negative) mg/dL Urine Ketones Trace (Negative) mg/dL Urine Blood Moderate (2+) H (Negative) Urine Nitrite Negative (Negative) Ur Leukocyte Esterase Small (1+) H (Negative) Urine RBC >20 H (0-2) /HPF Urine WBC 6-10 H (0-5) /HPF Ur Squamous Epith Cells 3-5 (0-2) /HPF Urine Bacteria None Seen (None Seen) Hyaline Casts 0-2 (0-2) /LPF Discharge Plan Discharge Clinical Impression: Left flank pain Patient Disposition: Still a Patient Prescriptions: No Action cholecalciferol (vitamin D3) 50 mcg (2,000 unit) capsule 50 mcg PO DAILY Qty: 90 3RF Probiotic 3 billion cell capsule 3,000 mmu cells PO DAILY Qty: 30 5RF Rx Instructions: administer with a meal fluconazole [Diflucan] 200 mg tablet 200 mg PO DAILY 10 Days Qty: 10 0RF naproxen [Naprosyn] 500 mg tablet 500 mg PO BID Qty: 20 0RF amoxicillin-pot clavulanate 875-125 mg tablet 1 tab PO BID Qty: 14 0RF doxycycline monohydrate 100 mg capsule 100 mg PO BID Qty: 28 0RF ondansetron 4 mg tablet,disintegrating 4 mg PO Q8H PRN (Reason: nausea and vomiting) Qty: 20 0RF oseltamivir [Tamiflu] 75 mg capsule 75 mg PO BID 5 Days Qty: 10 0RF simethicone 180 mg capsule 180 mg PO TID PRN pantoprazole 40 mg tablet,delayed release (DR/EC) 40 mg PO DAILY Qty: 90 2RF Rx Instructions: take one tablet half an hour before breakfast docusate sodium [Colace] 100 mg capsule 100 mg PO BID Qty: 180 2RF polyethylene glycol 3350 [Miralax] 17 gram powder in packet 17 g PO DAILY Qty: 100 3RF hydrocortisone [Proctosol HC] 2.5 % cream with perineal applicator 1 appl [place] BID-QID PRN (Reason: hemorrhoids) Qty: 30 2RF
[2022-05-14 02:00] VITALS: BP 130/78; PULSE 89; O2SAT 97
[2022-05-14] MEDS: Ondansetron ODT 4 MG TAB.RAPDIS TRANSLINGU (02:13)
[2022-05-14] MEDS: Ketorolac Tromethamine 15 MG/ML VIAL IM (02:13)
[2022-05-14] MEDS: Acetaminophen 325 MG TABLET 975 MG PO (02:13)
[2022-05-14 03:17] VITALS: BP 97/56; PULSE 68; RESP 16; TEMP 37; O2SAT 94
[2022-05-14 04:00] VITALS: BP 102/65; PULSE 70
[2022-05-14] MEDS: levoFLOXacin 750 MG TABLET PO (07:15)
[2022-05-14] MEDS: metroNIDAZOLE 500 MG TABLET PO (07:15)
== END 2022-05-14 07:12 | disposition home or self-care (01) ==
PROVIDERS: Student in an Organized Health Care Education/Training Program; Emergency Provider Emergency Medicine Emergency Medical Services; PCP Internal Medicine
DX: R10.9 Unspecified abdominal pain (principal); R31.9 Hematuria, unspecified; E66.9 Obesity, unspecified; Z68.41 Body mass index [BMI] 40.0-44.9, adult; F17.210 Nicotine dependence, cigarettes, uncomplicated
CPT/HCPCS: 36415; 74176; 80048; 80076; 81001; 81003; 83690; 85025; 87086; 96372; 99284; J1885

== ENCOUNTER → 2022-07-18 13:42 | Outpatient (BNVA) | payer MEDICAID, SELFPAY | PROVIDERS: PCP Internal Medicine; Visit Provider Nurse Practitioner Family | DX: K59.04 Chronic idiopathic constipation (principal); K21.9 Gastro-esophageal reflux disease without esophagitis; K57.90 Diverticulosis of intestine, part unspecified, without perforation or abscess without bleeding; R14.0 Abdominal distension (gaseous); R10.9 Unspecified abdominal pain | CPT/HCPCS: 99212 ==

== ENCOUNTER 2022-08-10 00:31 | Emergency (ER) | payer MEDICAID, SELFPAY ==
--- NOTE | ~2022-08-10 | CT_ITS ---
EXAMINATION: CT ABDOMEN AND PELVIS WITHOUT CONTRAST CLINICAL INFORMATION: Left lower quadrant pain COMPARISON: 05/14/2022 TECHNIQUE: Multidetector volumetric imaging was performed from the superior aspect of the liver through the pubic symphysis. Sagittal and coronal reformatted images were obtained on the technologist's workstation. This CT examination was performed using dose optimization techniques as appropriate, variously including the following: *Automated exposure control *Adjustment of mA and/or kV according to patient size (this includes techniques or standardized protocols for targeted exams where dose is matched to indication/reason for exam; i.e. extremities or head) *Use of iterative reconstruction technique DLP: 128 mGy-cm FINDINGS: LUNG BASES: The visualized lung bases are unremarkable. LIVER, GALLBLADDER, AND BILIARY TREE: The liver is normal in size, shape, and attenuation. No focal hepatic lesion or biliary ductal dilatation is identified. The gallbladder is unremarkable with no evidence of radiopaque gallstones, gallbladder wall thickening, or obvious pericholecystic inflammatory changes. PANCREAS: Unremarkable. SPLEEN: Unremarkable. ADRENAL GLANDS: Unremarkable. KIDNEYS AND URETERS: The kidneys are normal in size, shape, and attenuation. No hydronephrosis, hydroureter, or calculi seen. Redemonstrated bilateral renal cysts, right larger than left; no follow-up recommended. No perinephric stranding. BLADDER: Unremarkable. GASTROINTESTINAL TRACT: No evidence of bowel obstruction. The sigmoid colon is collapsed which limits evaluation for wall thickening, though there is mild stranding adjacent to the mid sigmoid colon in the presence of diverticula, suspicious for mild diverticulitis. No pericolonic abscess or free air is seen. The appendix is unremarkable. ABDOMINAL WALL: No significant hernia is appreciated. LYMPH NODES: Scattered mesenteric and retroperitoneal subcentimeter lymph nodes are present, without significant enlargement by size criteria. VASCULAR: Unremarkable. PELVIC VISCERA: Unremarkable. OSSEOUS STRUCTURES: There is facet arthropathy of the lower lumbar spine. CT/CT abdomen pelvis wo IV con IMPRESSION: Mild stranding adjacent to the mid sigmoid colon in the presence of diverticula, suspicious for mild diverticulitis. Correlation with recent or followup colonoscopy is advised to exclude an underlying mass lesion.
[2022-08-10 00:58] VITALS: BP 106/67; PULSE 72; RESP 16; TEMP 36.6; O2SAT 96; BMI 40.2
[2022-08-10 01:28] VITALS: BP 109/64; PULSE 67; RESP 16; TEMP 36.6; O2SAT 94
[2022-08-10 01:47] LABS: MANUAL DIFF FLAG NO
[2022-08-10 01:48] LABS: Appearance Urine Clear; Color Urine Yellow; Glucose Urine UA Negative (Negative); Leukocyte Esterase Urine Negative (Negative); Nitrite Urine Negative (Negative); PH 5.5 (5.0-9.0); Specific Gravity - Urine 1.015 (1.005-1.025); UMIC TRIGGER UACC YES; Urine Blood Small (1+) (Negative); Urine Ketones Negative (Negative); Urine Protein Negative (Neg-Trace)
[2022-08-10 01:48] LABS: Basophils Percent Auto 0.3 % (0-2); Eosinophils Absolute Auto 0.1 X10*3/uL (0.0-0.4); Eosinophils Percent Auto 1.5 % (0-4); Hematocrit 37.6 % (37.0-47.0); Hemoglobin 12.6 g/dl (12.0-16.0); Imm Gran Abs Auto 0.01 X10*3/uL (0.00-0.03); Imm Gran Pct Auto 0.1 % (0.0-0.4); Lymphocytes Absolute Auto 2.5 X10*3/uL (1.2-4.9); Lymphocytes Percent Auto 32.7 % (20-40); Mean Corpuscular HGB Conc 33.5 g/dl (31.0-35.0); Mean Corpuscular Hemoglobin 31.1 pg (27.0-33.0); Mean Corpuscular Volume 92.8 fL (80.0-98.0); Mean Platelet Volume 12.3 fL (9.4-12.3); Monocytes Absolute Auto 0.7 X10*3/uL (0.1-1.2); Monocytes Percent Auto 8.9 % (2-11); Neutrophils Absolute Auto 4.3 x10*3/uL (2.0-8.3); Neutrophils Percent Auto 56.5 % (45-73); Platelet Count 173 X10*3/uL (160-400); Red Blood Count 4.05 X10*6/uL (4.20-5.50); Red Cell Distribution Width 12.2 % (11.0-16.0); White Blood Count 7.6 X10*3/uL (4.8-10.8)
[2022-08-10 01:55] LABS: Bacteria Urine None Seen (None Seen); Hyaline Casts Urine 0-2 /LPF (0-2); RBC Urine 0-2 /HPF (0-2); Squamous Epithelial Cell Urine 0-2 /HPF (0-2); WBC Urine 0-5 /HPF (0-5)
[2022-08-10 02:05] LABS: Alanine Aminotransferase 23 U/L (0-31); Albumin Level 4.2 g/dL (3.5-5.0); Alkaline Phosphatase 76 U/L (39-117); Anion Gap 12 (12-20); Aspartate Amino Transferase 29 U/L (5-31); Bilirubin Total 0.3 mg/dL (0.0-1.0); Blood Urea Nitrogen 15 mg/dL (9-16); Calcium 9.6 mg/dL (8.4-10.2); Carbon Dioxide 26 mmol/L (22-29); Chloride 103 mmol/L (96-108); Creatinine Clr Calc Pharmacy 73.4; Estimated Glomerular Filt Rate 59; Glucose Random 97 mg/dL (60-115); Potassium 3.7 mmol/L (3.3-5.1); Sodium 137 mmol/L (135-145); Total Protein 7.2 g/dL (6.5-8.0)
--- NOTE | 2022-08-10 03:20 | ED_ITS ---
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 Patient reports a history of diverticulitis. Related Data Previous Rx's Medication Instructions Recorded pantoprazole 40 mg tablet,delayed 40 mg PO DAILY #90 tabs 01/18/22 release cholecalciferol (vitamin D3) 50 50 mcg PO DAILY #90 caps 01/24/22 mcg (2,000 unit) capsule doxycycline monohydrate 100 mg 100 mg PO BID ehrlichiosis #28 caps 02/02/22 capsule fluconazole 200 mg tablet 200 mg PO DAILY 10 days #10 tabs 05/02/22 (Diflucan) lactobacillus combination no.4 3 3,000 mmu cells PO DAILY #30 caps 05/02/22 billion cell capsule (Probiotic) ciprofloxacin HCl 500 mg tablet 500 mg PO Q12H 10 days #20 tabs 05/14/22 (Cipro) fluconazole 150 mg tablet 150 mg PO QWEEK 2 weeks #2 tabs 05/14/22 (Diflucan) metronidazole 500 mg tablet 500 mg PO TID 10 days #30 tabs 05/14/22 docusate sodium 100 mg capsule 100 mg PO BID #180 caps 07/18/22 (Colace) hydrocortisone 2.5 % topical cream 1 appl [place] BID-QID PRN hemorrhoids 07/18/22 with perineal applicator #30 grams (Proctosol HC) polyethylene glycol 3350 17 gram 17 g PO DAILY #100 ea 07/18/22 oral powder packet (Miralax) simethicone 180 mg capsule 180 mg PO BID PRN abdominal 07/18/22 distention #180 caps amoxicillin 875 mg-potassium 1 tab PO Q12H 10 days #20 tabs 08/10/22 clavulanate 125 mg tablet Allergies Allergy/AdvReac Type Severity Reaction Status Date / Time No Known Allergies [NKA] Allergy Verified 07/18/22 13:51 Review of Systems Review of Systems Pertinent positives and negatives as stated in HPI 10 point review of systems otherwise negative. PMFSH Past Medical History Source: nursing notes reviewed Medical History Chronic idiopathic constipation Cigarette smoker Diverticulitis Family history of coronary artery bypass graft Hepatic steatosis Obesity (BMI 30-39.9) Screening for colon cancer Smoking Unstable angina pectoris Surgical History H/O colonoscopy Hx of tonsillectomy Morbid obesity Family History Family History Brother Cancer Father Diabetes Mother Diabetes HTN (hypertension) Heart problem Family/Other Diabetes Social History Social History Household Members: Children Housing: House Do you presently have visiting nurse or other home services: No Alcohol intake: never Patient Tobacco Use Status: Never used Tobacco Cigarette Packs Per Day: 0.5 Cigarettes Per Day: 10.0 Smoked in Last 30 Days: No Second Hand Smoke Exposure: No Use of substances other than those prescribed or required for medical reasons: No Advance Directives: No Patient : No Physical Exam ED Vital Signs: Vital Signs - 24 hr 08/10/22 00:58 08/10/22 01:28 Temperature 97.9 F 98 F Pulse Rate 72 67 Respiratory Rate 16 16 Blood Pressure 106/67 109/64 Pulse Oximetry 96 94 Oxygen Delivery Method Room Air Room Air BMI result Body Mass Index 40.2 VITAL SIGNS: Reviewed. GENERAL: Well developed, well nourished, in no acute distress. HEAD: Normocephalic/atraumatic EYES: PERRLA, EOMI EARS: Ext canals without abnormality OROPHARYNX: no oral lesions noted, posterior pharynx clear LUNGS: Normal breath sounds. No adventitious sounds or accessory muscle use. SpO2<94> CARDIOVASCULAR: Regular rate and rhythm without noted murmurs, no JVD or lower extremity edema. ABDOMEN: Soft, minimal tenderness to palpation, non-distended with bowel sounds. MUSCULOSKELETAL: No tenderness, deformities, or effusions noted on gross inspection. EXTREMITIES: No cyanosis, clubbing or edema. SKIN: Inspection of the skin reveals no rashes NEUROLOGIC: Alert and oriented x 4. Strength and sensation to light touch were grossly intact x 4. Course Course Course Narrative: 52-year-old female with history and clinical presentation after review of all investigations suspicious for possible constipation, renal colic, d iverticulitis. Review of all investigations consistent with very mild diverticulitis, patient received initial antibiotics here in the emergency room as well as analgesics and is otherwise discharged home in stable condition. Medications Administered Discontinued Medications Generic Name Dose Route Start Last Admin Trade Name Cliffordq PRN Reason Stop Dose Admin Acetaminophen 975 mg 08/10/22 03:20 08/10/22 03:25 Acetaminophen 325 Mg Tablet PO 08/10/22 03:21 975 mg ONCE ONE Administration Ketorolac Tromethamine 15 mg 08/10/22 03:20 08/10/22 03:28 Ketorolac Tromethamine 15 Mg/Ml Vial IM 08/10/22 03:21 15 mg ONCE ONE Administration MDM - Abdominal Pain Lab Data Result diagrams: 08/10/22 01:41 08/10/22 01:41 Labs: Lab Results 08/10/22 08/10/22 08/10/22 Range/Units 01:40 01:41 01:41 WBC 7.6 (4.8-10.8) X10*3/uL RBC 4.05 L (4.20-5.50) X10*6/uL Hgb 12.6 (12.0-16.0) g/dl Hct 37.6 (37.0-47.0) % MCV 92.8 (80.0-98.0) fL MCH 31.1 (27.0-33.0) pg MCHC 33.5 (31.0-35.0) g/dl RDW 12.2 (11.0-16.0) % Plt Count 173 (160-400) X10*3/uL MPV 12.3 (9.4-12.3) fL Immature Gran % (Auto) 0.1 (0.0-0.4) % Neut % (Auto) 56.5 (45-73) % Lymph % (Auto) 32.7 (20-40) % [place] % (Auto) 8.9 (2-11) % Eos % (Auto) 1.5 (0-4) % Baso % (Auto) 0.3 (0-2) % Lymph # (Auto) 2.5 (1.2-4.9) X10*3/uL [place] # (Auto) 0.7 (0.1-1.2) X10*3/uL Eos # (Auto) 0.1 (0.0-0.4) X10*3/uL Baso # (Auto) 0.0 (0.0-0.2) X10*3/uL Abs Immat Gran (auto) 0.01 (0.00-0.03) X10*3/uL Absolute Neuts (auto) 4.3 (2.0-8.3) x10*3/uL Absolute Nucleated RBC 0.000 (0.0-0.012) X10*3/uL Nucleated RBC % (auto) 0.0 (0.0-0.2) /100WBC Sodium 137 (135-145) mmol/L Potassium 3.7 (3.3-5.1) mmol/L Chloride 103 (96-108) mmol/L Carbon Dioxide 26 (22-29) mmol/L Anion Gap 12 (12-20) BUN 15 (9-16) mg/dL Creatinine 0.99 (0.5-1.4) mg/dL Estim Creat Clear Calc 73.4 Estimated GFR 59 Random Glucose 97 (60-115) mg/dL Calcium 9.6 (8.4-10.2) mg/dL Total Bilirubin 0.3 (0.0-1.0) mg/dL AST 29 (5-31) U/L ALT 23 (0-31) U/L Alkaline Phosphatase 76 (39-117) U/L Total Protein 7.2 (6.5-8.0) g/dL Albumin 4.2 (3.5-5.0) g/dL Urine Color Yellow Urine Appearance Clear Urine pH 5.5 (5.0-9.0) Ur Specific [place] 1.015 (1.005-1.025) Urine Protein Negative (Neg-Trace) mg/dL Urine Glucose (UA) Negative (Negative) mg/dL Urine Ketones Negative (Negative) mg/dL Urine Blood Small (1+) H (Negative) Urine Nitrite Negative (Negative) Ur Leukocyte Esterase Negative (Negative) Urine RBC 0-2 (0-2) /HPF Urine WBC 0-5 (0-5) /HPF Ur Squamous Epith Cells 0-2 (0-2) /HPF Urine Bacteria None Seen (None Seen) Hyaline Casts 0-2 (0-2) /LPF Discharge Plan Discharge Clinical Impression: Diverticulitis Patient Disposition: Home, Self-Care Instructions: Diverticulitis (ED), Diverticulitis Diet (ED) Additional Instructions: 1. Tylenol 1000 mg, por v?a oral, cada 6 horas seg?n sea necesario para controlar el dolor. No exceda los 4000 mg dentro de las 24 horas. 2. Ibuprofeno 400 mg, por v?a oral con leche o alimentos, cada 6 horas seg?n sea necesario para controlar el dolor. 3. Complete todo el ciclo de antibi?ticos seg?n lo indicado. 4. Realice un seguimiento con mendiola proveedor de atenci?n primaria en los pr?ximos 2 a 3 d?as para patrick reevaluaci?n adicional del manejo ambulatorio. Tambi?n debe obtener patrick remisi?n para el seguimiento con gastroenterolog?a en 6 semanas para la colonoscopia. Regrese a la jose r de emergencias si los s?ntomas empeoran. Prescriptions: New amoxicillin-pot clavulanate 875-125 mg tablet 1 tab PO Q12H 10 Days Qty: 20 0RF No Action cholecalciferol (vitamin D3) 50 mcg (2,000 unit) capsule 50 mcg PO DAILY Qty: 90 3RF Probiotic 3 billion cell capsule 3,000 mmu cells PO DAILY Qty: 30 5RF Rx Instructions: administer with a meal fluconazole [Diflucan] 200 mg tablet 200 mg PO DAILY 10 Days Qty: 10 0RF doxycycline monohydrate 100 mg capsule 100 mg PO BID Qty: 28 0RF metronidazole 500 mg tablet 500 mg PO TID 10 Days Qty: 30 0RF ciprofloxacin HCl [Cipro] 500 mg tablet 500 mg PO Q12H 10 Days Qty: 20 0RF fluconazole [Diflucan] 150 mg tablet 150 mg PO QWEEK 14 Days Qty: 2 0RF hydrocortisone [Proctosol HC] 2.5 % cream with perineal applicator 1 appl [place] BID-QID PRN (Reason: hemorrhoids) Qty: 30 2RF docusate sodium [Colace] 100 mg capsule 100 mg PO BID Qty: 180 2RF polyethylene glycol 3350 [Miralax] 17 gram powder in packet 17 g PO DAILY Qty: 100 3RF simethicone 180 mg capsule 180 mg PO BID PRN (Reason: abdominal distention) Qty: 180 2RF pantoprazole 40 mg tablet,delayed release (DR/EC) 40 mg PO DAILY Qty: 90 2RF Rx Instructions: take one tablet half an hour before breakfast Referrals: Christelle Rondon MD [Primary Care Provider] - Print Language: Stateless
[2022-08-10] MEDS: Acetaminophen 325 MG TABLET 975 MG PO (03:25)
[2022-08-10] MEDS: Ketorolac Tromethamine 15 MG/ML VIAL IM (03:28)
[2022-08-10 04:37] VITALS: BP 110/70; PULSE 76; RESP 16; TEMP 36.8; O2SAT 98
[2022-08-10] MEDS: Amoxicillin/Potassium Clav 875 MG TABLET PO (04:45)
== END 2022-08-10 04:51 | disposition home or self-care (01) ==
PROVIDERS: Emergency Provider Student in an Organized Health Care Education/Training Program; PCP Internal Medicine
DX: K57.32 Diverticulitis of large intestine without perforation or abscess without bleeding (principal); F17.210 Nicotine dependence, cigarettes, uncomplicated; E66.9 Obesity, unspecified; Z68.41 Body mass index [BMI] 40.0-44.9, adult
CPT/HCPCS: 36415; 74176; 80053; 81001; 85025; 96372; 99284; J1885

== ENCOUNTER 2022-10-05 08:07 | Day surgery (SDC) | payer MEDICAID, SELFPAY ==
[2022-09-28 15:12] VITALS: BMI 40.2
--- NOTE | 2022-10-04 10:31 | HO.ANESPROP2 ---
HPI - Anesthesia Eval Consult details Narrative: 52yo F for Sigmoidoscopy Flexible PMFSH Active Problems Active Problems: All Active Problems (Updated 08/11/22 @ 11:16 by MAC Man) Diverticulosis (Acute) Esophageal candidiasis (Acute) Abdominal bloating with cramps (Acute) Chronic idiopathic constipation (Acute) Obesity (BMI 30-39.9) (Acute) Screening for colon cancer (Acute) Past Medical History Medical History (Updated 08/11/22 @ 11:16 by MAC Man) Chronic idiopathic constipation Cigarette smoker Diverticulitis Diverticulosis Family history of coronary artery bypass graft Hepatic steatosis Obesity (BMI 30-39.9) Screening for colon cancer Smoking Unstable angina pectoris Family History Family History Brother Cancer Father Diabetes Mother Diabetes HTN (hypertension) Heart problem Family/Other Diabetes Surgical History Surgical History H/O colonoscopy Hx of tonsillectomy Morbid obesity Social History Social History Household Members: Children Housing: House Do you presently have visiting nurse or other home services: No Alcohol intake: never Patient Tobacco Use Status: Never used Tobacco Cigarette Packs Per Day: 0.5 Cigarettes Per Day: 10.0 Second Hand Smoke Exposure: No Meds Allergies Allergy/AdvReac Type Severity Reaction Status Date / Time No Known Allergies [NKA] Allergy Verified 07/18/22 13:51 Exam Exam Date and Time: October 04, 2022 1031 Height,Weight and Vital Signs: Height 5 ft 2 in Weight 99.79 kg Pertinent Lab Results Pertinent Lab Results: Laboratory Tests 08/10/22 08/10/22 01:41 01:41 WBC 7.6 Hgb 12.6 Hct 37.6 Plt Count 173 Sodium 137 Potassium 3.7 Chloride 103 Carbon Dioxide 26 BUN 15 Creatinine 0.99 Narrative Narrative: ECHO 2020 Conclusions: - The left ventricular systolic function is hyperdynamic.? The ? visually estimated ejection fraction is >70%.? - There is mild mitral valve regurgitation.? ? ? NM deisi perf SPECT rest & str 2020 IMPRESSION: ? 1.? Myocardial perfusion imaging study shows mild apical anterior defect that appears to be reversible in uncorrected and fixed based on corrected acquisitions, but with normal contractility and could be artifactual. No definitive evidence of any ischemia or infarction. 2.? Gated LVEF is 66% on stress and 53% on rest. 3. Transient ischemic dilatation not present. ? EKG component of the test reported separately. Assessment and Plan Assessment Anesthesia Assessment: Chart Reviewed
--- NOTE | 2022-10-05 08:37 | MHC.SHP ---
Pre-Procedural Eval Section A Date of Service: 10/05/22 Section B Chief Complaint: Abnormal imaging Details of Present Illness: 52y.o F with PMH of polyps and diverticulosis presenting for abnormal imaging on CT: mild stranding adjacent to the mid sigmoid colon in the presence of diverticula, suspicious for mild diverticulitis. Here for flex sig. Fleet enema to be given in pre-op. Present Medications: see Short Stay Collaborative assessment Medical History: Significant History (as above ) Allergies: Allergies Allergy/AdvReac Type Severity Reaction Status Date / Time No Known Allergies [NKA] Allergy Verified 07/18/22 13:51 Review of Systems Review of Systems Comment: Ten point ROS negative except as above Exam Exam Comment: Gen appear: No acute distress, well nourished HEENT: no icterus Chest: No overt resp distress Abd: soft, nontender, nondistended Psych: Stable affect, answering questions appropriately Neuro: A/Ox3 noted to move all extremities spontaneously Ext: no peripheral edema Plan Diagnosis/Plan: Unchanged I have reviewed the history and physical and performed a pertinent physical examination on my patient. No changes have occurred unless specified. Time Spent With Patient Time: Total time managing care of this patient today ____ minutes.
--- NOTE | 2022-10-05 08:58 | HO.ANESPROP2 ---
[facility] Active Problems Active Problems: All Active Problems (Updated 08/11/22 @ 11:16 by MAC Man) Diverticulosis (Acute) Esophageal candidiasis (Acute) Abdominal bloating with cramps (Acute) Chronic idiopathic constipation (Acute) Obesity (BMI 30-39.9) (Acute) Screening for colon cancer (Acute) Past Medical History Medical History (Updated 08/11/22 @ 11:16 by MAC Man) Chronic idiopathic constipation Cigarette smoker Diverticulitis Diverticulosis Family history of coronary artery bypass graft Hepatic steatosis Obesity (BMI 30-39.9) Screening for colon cancer Smoking Unstable angina pectoris Family History Family History Brother Cancer Father Diabetes Mother Diabetes HTN (hypertension) Heart problem Family/Other Diabetes Surgical History Surgical History H/O colonoscopy Hx of tonsillectomy Morbid obesity History of Problems with Anesthesia: No Social History Social History Household Members: Children Housing: House Do you presently have visiting nurse or other home services: No Alcohol intake: never Patient Tobacco Use Status: Never used Tobacco Cigarette Packs Per Day: 0.5 Cigarettes Per Day: 10.0 Second Hand Smoke Exposure: No Use of substances other than those prescribed or required for medical reasons: No Are you DNR?: No Advance Directives: No Advance Directives Information Provided: Yes Meds Allergies Allergy/AdvReac Type Severity Reaction Status Date / Time No Known Allergies [NKA] Allergy Verified 07/18/22 13:51 Active Medications: Current Medications Albuterol Sulfate (Albuterol Sulfate (0.083%) 2.5 Mg/3 Ml Vial.Neb) 2.5 mg INHALE ONCE PRN PRN Reason: Shortness of Breath/Wheezing Lactated Ringer's (Lr) 1,000 mls @ 100 mls/hr IVCONT .Q10H JANE Exam Exam Date and Time: October 05, 2022 0858 Height,Weight and Vital Signs: Height 5 ft 2 in Weight 99.79 kg Airway Mallampati Class: II TM Dist: >3cm Neck ROM: Full Assessment and Plan Assessment Anesthesia Assessment: Anesthesia Plan Discussed and Chart Reviewed Final Anesthetic Review History of Problems with Anesthesia: No NPO: Yes ASA Class: II Final Preanesthetic Review: No Changes in Pt Med Stat, Meds/Allgs Chart Reviewed, Consent Obtained/Reviewed and Anes Risks/Benef Reviewed Patient Risk: Low Procedure Risk: Low Anesthetic Plan Disposition: Standard PACU
[2022-10-05] MEDS: Lactated Ringers 1,000 ML 100 ML IVCONT (09:02)
[2022-10-05] MEDS: Sodium Phosphate,Mono-Dibasic 133 ML ENEMA PR ×2 (09:03→09:18)
--- NOTE | 2022-10-05 09:37 | W.PM.OPN ---
Operative Note Operative Note Date of Service: 10/05/22 Narrative: Procedure: Flexible sigmoidoscopy Indication: Abnormal imaging Endoscopist: Shelly Hendrickson MD Anesthesia Provider: Dr Kyle Kennedy Anesthesia type: MAC Instrument: Olympus [id number]-H190L Consent: Indication, risks vs benefits, and alternatives were discussed with the patient who gave written informed consent to proceed. EKG, pulse, pulse oximetry and blood pressure were monitored throughout the procedure. Please see anesthesia flowsheet. Procedure: The patient was brought to the procedure room and placed in the left lateral decubitus position. IV medications were administered by the anesthesia provider in attendance. A digital rectal exam was performed which was normal. The colonoscope was then inserted through the anus and advanced through the colon to the splenic flexure at 50 cm. Mucosa was carefully examined under high definition white light as the instrument was slowly withdrawn in a retrograde panoramic fashion. Retroflexion was performed in rectum. The procedure was not difficult. There were no immediate obvious complications. Limitations: Poor prep in transverse colon. Findings: Mucosa: Edema, loss of normal vascular pattern and luminal narrowing with associated diverticulosis was noted in sigmoid colon starting at 20 cm extending to 30 cm. Cold forceps biopsies were taken for histology. Protruding lesions: Multiple pale/pearlescent appearing polyps were noted in rectum and distal sigmoid colon consistent with hyperplastic polyps. A insurance verification representative polyp of size 8 mm in the sigmoid colon was removed via cold snare polypectomy and retrieved. Large internal hemorrhoids without stigmata of recent bleeding. Excavated lesions: Multiple medium and large mouthed diverticula in left sided colon, most pronounced in sigmoid colon as above. Impression: 1. Abnormal mucosa in sigmoid colon ? SCAD (biopsy) 2. Hyperplastic appearing polyps in rectum. 1 sigmoid polyp removed. 3. Internal hemorrhoids Recommendations: - Follow path results. - Repeat full colonoscopy in 2025 (i.e 5 years from the previous one as prep quality unknown)
[2022-10-05 10:18] VITALS: BP 109/58; PULSE 88; RESP 18; TEMP 36.5; O2SAT 98
[2022-10-05 10:33] VITALS: BP 120/98; PULSE 81; RESP 18; TEMP 36.1; O2SAT 96
== END 2022-10-05 10:45 ==
PROVIDERS: PCP Internal Medicine; Visit Provider Internal Medicine
PROC: 0DJD8ZZ Inspection of Lower Intestinal Tract, Via Natural or Artificial Opening Endoscopic (ICD-10-PCS; CPT 45330; principal; 2022-10-05 09:10)
DX: R93.3 Abnormal findings on diagnostic imaging of other parts of digestive tract (principal); Z86.010 Personal history of colon polyps; R14.0 Abdominal distension (gaseous); K63.5 Polyp of colon; K57.30 Diverticulosis of large intestine without perforation or abscess without bleeding; K64.8 Other hemorrhoids; K76.0 Fatty (change of) liver, not elsewhere classified; Z87.19 Personal history of other diseases of the digestive system; K59.04 Chronic idiopathic constipation; I20.0 Unstable angina; E66.01 Morbid (severe) obesity due to excess calories; Z68.41 Body mass index [BMI] 40.0-44.9, adult; Z79.899 Other long term (current) drug therapy; F17.210 Nicotine dependence, cigarettes, uncomplicated
CPT/HCPCS: 45338; 45331; 88305

== ENCOUNTER → 2022-10-20 15:29 | Outpatient (BNVA) | payer MEDICAID, SELFPAY | PROVIDERS: PCP Internal Medicine; Referring Provider Internal Medicine; Visit Provider Nurse Practitioner Family | DX: K59.04 Chronic idiopathic constipation (principal); R10.9 Unspecified abdominal pain; R14.0 Abdominal distension (gaseous); K58.1 Irritable bowel syndrome with constipation | CPT/HCPCS: 99212 ==

== ENCOUNTER 2023-02-10 07:09 | Emergency (ER) | payer MEDICAID, SELFPAY ==
--- NOTE | ~2023-02-10 | CT_ITS ---
EXAMINATION: CT ABDOMEN AND PELVIS WITHOUT CONTRAST CLINICAL INFORMATION: Abdominal pain. Rule out diverticulitis. COMPARISON: August 10, 2022 TECHNIQUE: Multidetector volumetric imaging was performed from the superior aspect of the liver through the pubic symphysis. Sagittal and coronal reformatted images were obtained on the technologist's workstation. This CT examination was performed using dose optimization techniques as appropriate, variously including the following: *Automated exposure control *Adjustment of mA and/or kV according to patient size (this includes techniques or standardized protocols for targeted exams where dose is matched to indication/reason for exam; i.e. extremities or head) *Use of iterative reconstruction technique DLP: 764 mGy-cm FINDINGS: LUNG BASES: No confluent parenchymal disease identified. There is scarring or atelectasis present bilaterally. There are some sub-4 mm densities seen. No pleural or pericardial effusion. LIVER, GALLBLADDER, AND BILIARY TREE: There is hepatomegaly with fatty infiltration. No focal mass or intrahepatic bile duct dilatation is identified. The gallbladder is unremarkable with no evidence of radiopaque gallstones, gallbladder wall thickening, or obvious pericholecystic inflammatory changes. PANCREAS: Unremarkable. No abnormal mass or peripancreatic inflammatory change. SPLEEN: Unremarkable. ADRENAL GLANDS: Unremarkable. KIDNEYS AND URETERS: The kidneys are normal in size, shape, and attenuation. No hydronephrosis, hydroureter, or calculi seen. No perinephric stranding. No suspicious solid mass identified. There are bilateral cysts present the largest within the right kidney measuring 5.4 x 4.5 cm in size. No follow-up required for these simple appearing cyst. BLADDER: Unremarkable. GASTROINTESTINAL TRACT: No dilated loops of large or small bowel are evident. No free air is seen. There is trace free fluid seen about the pelvis. There is sigmoid colon wall thickening with large amount of pericolonic fat stranding but no definite focal abscess collection. The appendix is visualized and appears unremarkable. ABDOMINAL WALL: No significant hernia is appreciated. LYMPH NODES: Prominent but not pathologically enlarged para-aortic lymph nodes. VASCULAR: No abdominal aortic aneurysm. PELVIC VISCERA: Unremarkable. OSSEOUS STRUCTURES: No suspicious destructive bony lesions. CT/CT abdomen pelvis wo IV con IMPRESSION: Acute sigmoid colon diverticulitis without drainable abscess. Hepatomegaly with fatty infiltration of the liver. Fleischner guidelines were followed.
[2023-02-10 07:19] VITALS: BP 120/77; PULSE 87; RESP 18; TEMP 36.7; O2SAT 96; BMI 40.8
[2023-02-10 07:49] VITALS: BP 108/67; PULSE 79; RESP 18; TEMP 36.7
--- NOTE | 2023-02-10 07:49 | ED.ABDPAIN ---
HPI - Abdominal Pain General Chief Complaint: Abdominal Pain Stated Complaint: diverticulitis ? Time Seen by Provider: 02/10/23 07:40 Source: patient Mode of arrival: ambulatory Limitations: no limitations History of Present Illness HPI narrative: 52-year-old female came in for evaluation of lower abdominal pain started 2 days ago, pain is more toward the left lower quadrant area radiating to the back similar to her previous pain when she had diverticulitis, a decline any nausea, vomiting, or diarrhea. No fever or chills. No intra-abdominal surgery. Patient had episodes of diverticulitis in the past. Patient also is complaining bilateral hands pain. Related Data Previous Rx's Medication Instructions Recorded pantoprazole 40 mg tablet,delayed 40 mg PO DAILY #90 tabs 01/18/22 release cholecalciferol (vitamin D3) 50 50 mcg PO DAILY #90 caps 01/24/22 mcg (2,000 unit) capsule docusate sodium 100 mg capsule 100 mg PO BID #180 caps 07/18/22 (Colace) hydrocortisone 2.5 % topical cream 1 appl [place] BID-QID PRN hemorrhoids 07/18/22 with perineal applicator #30 grams (Proctosol HC) polyethylene glycol 3350 17 gram 17 g PO DAILY #100 ea 07/18/22 oral powder packet (Miralax) simethicone 180 mg capsule 180 mg PO BID PRN abdominal 07/18/22 distention #180 caps lactobacillus combination no.4 3 3,000 mmu cells PO DAILY #30 caps 10/20/22 billion cell capsule (Probiotic) linaclotide 145 mcg capsule 145 mcg PO DAILY #90 caps 10/20/22 (Linzess) amoxicillin 875 mg-potassium 1 tab PO BID #14 tabs 02/10/23 clavulanate 125 mg tablet metronidazole 500 mg tablet 250 mg PO BID #14 tabs 02/10/23 Allergies Allergy/AdvReac Type Severity Reaction Status Date / Time No Known Allergies [NKA] Allergy Verified 02/10/23 07:19 Review of Systems Review of Systems All other systems are reviewed and are negative Constitutional: Reports as per HPI and Reports no additional constitutional complaints Eyes: Reports as per HPI and Reports no additional eye complaints Reports system reviewed and no additional complaints, except as documented Cardiovascular: Reports as per HPI and Reports no additional cardiovascular complaints Respiratory: Reports as per HPI and Reports no additional respiratory complaints Gastrointestinal: Reports as per HPI and Reports no additional gastrointestinal complaints Genitourinary: Reports no additional female genitourinary complaints Musculoskeletal: Reports no additional musculoskeletal complaints Skin/Breast: Reports system reviewed and no additional complaints, except as docu Psychiatric: Reports no additional psychiatric complaints Endocrine: Reports no additional endocrine complaints Hematologic/Lymphatic: Reports no additional hematologic/lymphatic complaints Allergic/Immunologic: Reports no additional allergic/immunologic complaints Reports system reviewed and no additional complaints, except as documented and Reports Abnormal speech present [facility] Past Medical History Medical History Chronic idiopathic constipation Cigarette smoker Diverticulitis Diverticulosis Family history of coronary artery bypass graft Hepatic steatosis Hx of sigmoidoscopy Obesity (BMI 30-39.9) Post-menopause Screening for colon cancer Smoking Unstable angina pectoris Surgical History H/O colonoscopy Hx of tonsillectomy Morbid obesity Family History Family History Brother Cancer Father Diabetes Mother Diabetes HTN (hypertension) Heart problem Family/Other Diabetes Social History Social History Household Members: Children Housing: House Do you presently have visiting nurse or other home services: No Alcohol intake: never Patient Tobacco Use Status: Never used Tobacco Cigarette Packs Per Day: 0.5 Cigarettes Per Day: 10.0 Smoked in Last 30 Days: No Second Hand Smoke Exposure: No Use of substances other than those prescribed or required for medical reasons: No Advance Directives: No Physical Exam ED Vital Signs: Vital Signs - 24 hr 02/10/23 07:19 02/10/23 07:49 02/10/23 08:00 Temperature 98.1 F 98.1 F Pulse Rate 87 79 75 Respiratory Rate 18 18 18 Blood Pressure 120/77 108/67 109/65 Pulse Oximetry 96 95 Oxygen Delivery Method Room Air Room Air BMI result Body Mass Index 40.8 Vital signs have been reviewed as appeared to be correct. Blood pressure normal. Heart rate normal. Respiration rate normal. Temperature normal. Oxygen saturation normal. Appearance: Alert. Oriented X3. No acute distress. Head: Normal external exam. Normocephalic. Atraumatic. No Judge signs noted. No raccoon eyes noted Eyes: PERRLA. EOMI. Conjunctiva and sclera normal. Eyelids normal. ENT: TM's Normal. Pharynx normal. Uvula midline. Moist mucous membranes. No trismus noted. No drooling noted. No muffled voice noted. Neck: Normal inspection. Neck supple. FROM. No adenopathy. Thyroid Normal. No meningeal signs. No neck mass noted. CVS: Normal heart rate and rhythm. Heart sound normal. No murmurs noted. Pulses normal throughout. Respiratory: No respiratory distress. Painless inspiration. Breath sounds normal. No wheezes/rales/rhonchi noted. Chest nontender. No accessory muscle usage noted or decreased air movement noted. Abdomen: Soft, left lower quadrant tenderness no rebound tenderness, no guarding parents. Bowel sounds normal in all 4 quadrants. No distention noted. No organomegaly noted. No visible injury noted. Back: No CVA tenderness. Full range of motion noted. Skin: Skin warm and dry. Normal skin color. Normal skin turgor. No rashes/lesions/lacerations noted. Extremities: No lower extremity edema. Extremities exhibit normal range of motion. Extremities nontender. Neuro: Oriented X 3. Cranial nerve exam: II-XII are grossly intact No motor deficit. No sensory deficit. Reflexes normal. Course Course Course Narrative: 52-year-old female history of diverticulitis came in with lower abdominal pain CT abdomen pelvis is confirming diagnosis of diverticulitis patient will be taking 1st dose of antibiotic in the emergency department and discharged with Augmentin and Flagyl. Medical Decision Making Differential Diagnosis Differential Diagnoses: The differential diagnosis associated with the presentation includes (Diverticulitis, colitis, appendicitis, pancreatitis, electrolytes abnormalities, severe anemia. I) Admission/Observation Consideration of admission/observation: Escalation of care including admission/observation considered Lab Data MDM Lab Attestation statement: I reviewed the patient's lab results. 02/10/23 08:03 02/10/23 08:03 Labs: Lab Results 02/10/23 02/10/23 02/10/23 Range/Units 08:03 08:03 08:29 WBC 8.6 (4.8-10.8) X10*3/uL RBC 4.09 L (4.20-5.50) X10*6/uL Hgb 12.6 (12.0-16.0) g/dl Hct 39.0 (37.0-47.0) % MCV 95.4 (80.0-98.0) fL MCH 30.8 (27.0-33.0) pg MCHC 32.3 (31.0-35.0) g/dl RDW 12.0 (11.0-16.0) % Plt Count 142 L (160-400) X10*3/uL MPV 12.7 H (9.4-12.3) fL Immature Gran % (Auto) 0.2 (0.0-0.4) % Neut % (Auto) 65.7 (45-73) % Lymph % (Auto) 25.0 (20-40) % [place] % (Auto) 8.3 (2-11) % Eos % (Auto) 0.6 (0-4) % Baso % (Auto) 0.2 (0-2) % Lymph # (Auto) 2.2 (1.2-4.9) X10*3/uL [place] # (Auto) 0.7 (0.1-1.2) X10*3/uL Eos # (Auto) 0.1 (0.0-0.4) X10*3/uL Baso # (Auto) 0.0 (0.0-0.2) X10*3/uL Abs Immat Gran (auto) 0.02 (0.00-0.03) X10*3/uL Absolute Neuts (auto) 5.7 (2.0-8.3) x10*3/uL Absolute Nucleated RBC 0.000 (0.0-0.012) X10*3/uL Nucleated RBC % (auto) 0.0 (0.0-0.2) /100WBC Sodium 141 (135-145) mmol/L Potassium 4.5 D (3.3-5.1) mmol/L Chloride 109 H (96-108) mmol/L Carbon Dioxide 23 (22-29) mmol/L Anion Gap 14 (12-20) BUN 12 (9-16) mg/dL Creatinine 0.94 (0.5-1.4) mg/dL Estim Creat Clear Calc 77.9 Estimated GFR > 60 Random Glucose 107 (60-115) mg/dL Calcium 9.0 D (8.4-10.2) mg/dL Total Bilirubin 0.6 (0.0-1.0) mg/dL Direct Bilirubin 0.2 (0.0-0.5) mg/dL AST 27 (5-31) U/L ALT 24 (0-31) U/L Alkaline Phosphatase 73 (39-117) U/L Total Protein 7.3 (6.5-8.0) g/dL Albumin 4.0 (3.5-5.0) g/dL Lipase 28 (8-78) U/L Urine Color Yellow Urine Appearance Clear Urine pH 5.5 (5.0-9.0) Ur Specific [place] 1.025 (1.005-1.025) Urine Protein Trace (Neg-Trace) mg/dL Urine Glucose (UA) Negative (Negative) mg/dL Urine Ketones Trace (Negative) mg/dL Urine Blood Moderate (2+) H (Negative) Urine Nitrite Negative (Negative) Ur Leukocyte Esterase Trace H (Negative) Urine RBC 11-20 H (0-2) /HPF Urine WBC 0-5 (0-5) /HPF Ur Squamous Epith Cells 3-5 (0-2) /HPF Urine Bacteria None Seen (None Seen) Hyaline Casts 0-2 (0-2) /LPF Independent Interpretation I performed an independent interpretation of an: CT Scan (Abdomen pelvis: Sigmoid diverticulitis) Radiology Impression Discussion of test interpretation with radiology: I have reviewed the radiologist's reading. Discharge Plan Discharge Clinical Impression: Diverticulitis Patient Disposition: Home, Self-Care Instructions: Diverticulitis (ED) Prescriptions: New amoxicillin-pot clavulanate 875-125 mg tablet 1 tab PO BID Qty: 14 0RF metronidazole 500 mg tablet 250 mg PO BID Qty: 14 0RF No Action cholecalciferol (vitamin D3) 50 mcg (2,000 unit) capsule 50 mcg PO DAILY Qty: 90 3RF hydrocortisone [Proctosol HC] 2.5 % cream with perineal applicator 1 appl [place] BID-QID PRN (Reason: hemorrhoids) Qty: 30 2RF docusate sodium [Colace] 100 mg capsule 100 mg PO BID Qty: 180 2RF polyethylene glycol 3350 [Miralax] 17 gram powder in packet 17 g PO DAILY Qty: 100 3RF simethicone 180 mg capsule 180 mg PO BID PRN (Reason: abdominal distention) Qty: 180 2RF Linzess 145 mcg capsule 145 mcg PO DAILY Qty: 90 3RF Probiotic 3 billion cell capsule 3,000 mmu cells PO DAILY Qty: 30 5RF Rx Instructions: administer with a meal pantoprazole 40 mg tablet,delayed release (DR/EC) 40 mg PO DAILY Qty: 90 2RF Rx Instructions: take one tablet half an hour before breakfast Referrals: Christelle Rondon MD [Primary Care Provider] -
--- NOTE | 2023-02-10 07:53 | PC.NURSE ---
Alert and oriented. States has had abdominal pain for 2-3 days. States history of diverticulitis. Denies vomiting or nausea today but was nauseous yesterday. States last BM was 2 days ago positive bowel sounds x 4. states 7/10 pain that extends around flank and into back. Denies pain with urination.
[2023-02-10 08:00] VITALS: BP 109/65; PULSE 75; RESP 18; O2SAT 95
[2023-02-10 08:10] LABS: MANUAL DIFF FLAG NO
[2023-02-10 08:18] LABS: Basophils Percent Auto 0.2 % (0-2); Eosinophils Absolute Auto 0.1 X10*3/uL (0.0-0.4); Eosinophils Percent Auto 0.6 % (0-4); Hemoglobin 12.6 g/dl (12.0-16.0); Imm Gran Abs Auto 0.02 X10*3/uL (0.00-0.03); Imm Gran Pct Auto 0.2 % (0.0-0.4); Lymphocytes Absolute Auto 2.2 X10*3/uL (1.2-4.9); Mean Corpuscular HGB Conc 32.3 g/dl (31.0-35.0); Mean Corpuscular Hemoglobin 30.8 pg (27.0-33.0); Mean Corpuscular Volume 95.4 fL (80.0-98.0); Mean Platelet Volume 12.7 fL (9.4-12.3); Monocytes Absolute Auto 0.7 X10*3/uL (0.1-1.2); Monocytes Percent Auto 8.3 % (2-11); Neutrophils Absolute Auto 5.7 x10*3/uL (2.0-8.3); Neutrophils Percent Auto 65.7 % (45-73); Platelet Count 142 X10*3/uL (160-400); Red Blood Count 4.09 X10*6/uL (4.20-5.50); White Blood Count 8.6 X10*3/uL (4.8-10.8)
[2023-02-10 08:24] LABS: Alanine Aminotransferase 24 U/L (0-31); Alkaline Phosphatase 73 U/L (39-117); Anion Gap 14 (12-20); Aspartate Amino Transferase 27 U/L (5-31); Bilirubin Direct 0.2 mg/dL (0.0-0.5); Bilirubin Total 0.6 mg/dL (0.0-1.0); Blood Urea Nitrogen 12 mg/dL (9-16); Carbon Dioxide 23 mmol/L (22-29); Chloride 109 mmol/L (96-108); Creatinine Clr Calc Pharmacy 77.9; Estimated Glomerular Filt Rate > 60; Glucose Random 107 mg/dL (60-115); Lipase 28 U/L (8-78); Potassium 4.5 mmol/L (3.3-5.1); Sodium 141 mmol/L (135-145); Total Protein 7.3 g/dL (6.5-8.0)
[2023-02-10 08:46] LABS: Color Urine Yellow; Glucose Urine UA Negative (Negative); Leukocyte Esterase Urine Trace (Negative); Nitrite Urine Negative (Negative); PH 5.5 (5.0-9.0); Specific Gravity - Urine 1.025 (1.005-1.025); UMIC TRIGGER UACC YES; Urine Blood Moderate (2+) (Negative); Urine Ketones Trace mg/dL (Negative); Urine Protein Trace mg/dL (Neg-Trace)
[2023-02-10 09:11] LABS: Bacteria Urine None Seen (None Seen); Hyaline Casts Urine 0-2 /LPF (0-2); WBC Urine 0-5 /HPF (0-5)
[2023-02-10 09:13] LABS: Appearance Urine Clear
[2023-02-10] MEDS: Morphine Sulfate 2 MG/ML CARTRIDGE IVPUSH (11:13)
[2023-02-10] MEDS: Piperacillin Sodium/Tazobactam 3.375 GM in 0.9 % Sodium Chloride 50 ML IV (11:13)
[2023-02-10 11:19] VITALS: BP 120/61; PULSE 79; RESP 18
[2023-02-10 12:24] VITALS: BP 127/74; PULSE 77; RESP 20; TEMP 37; O2SAT 98
[2023-02-10] MEDS: Ketorolac Tromethamine 30 MG/ML VIAL IVPUSH (13:09)
--- NOTE | 2023-02-10 13:10 | PC.NURSE ---
additional pain meds given prior to d/c pt reports pain persist
== END 2023-02-10 13:51 | disposition home or self-care (01) ==
PROVIDERS: Emergency Provider Emergency Medicine; PCP Internal Medicine
DX: K57.32 Diverticulitis of large intestine without perforation or abscess without bleeding (principal); R10.30 Lower abdominal pain, unspecified; F17.210 Nicotine dependence, cigarettes, uncomplicated; Z79.899 Other long term (current) drug therapy
CPT/HCPCS: 36415; 74176; 80048; 80076; 81001; 81003; 83690; 85025; 96365; 96375; 99284; 99285; J1885; J2270; J2543

== ENCOUNTER 2023-02-12 19:13 | Emergency (ER) | payer MEDICAID, SELFPAY ==
--- NOTE | ~2023-02-12 | CT_ITS ---
EXAMINATION: CT ABDOMEN AND PELVIS WITH CONTRAST CLINICAL INFORMATION: Left flank pain. He seen 2 days ago for diverticulitis. COMPARISON: 02/10/2023 TECHNIQUE: Multidetector volumetric images were obtained from the superior aspect of the liver through the pubic symphysis following administration 85 mL of Omnipaque 350 intravenous contrast. Sagittal and coronal reformatted images were obtained on the technologist's workstation. Oral contrast: No This CT examination was performed using dose optimization techniques as appropriate, variously including the following: *Automated exposure control *Adjustment of mA and/or kV according to patient size (this includes techniques or standardized protocols for targeted exams where dose is matched to indication/reason for exam; i.e. extremities or head) *Use of iterative reconstruction technique DLP: 774 mGy-cm FINDINGS: LUNG BASES: The visualized lung bases are unremarkable. LIVER, GALLBLADDER, AND BILIARY TREE: The liver is normal in size, shape, and attenuation. No focal hepatic lesion or biliary ductal dilatation is present. The gallbladder is unremarkable with no evidence of radiopaque gallstones, gallbladder wall thickening, or obvious pericholecystic inflammatory changes. PANCREAS: Unremarkable. SPLEEN: Unremarkable. ADRENAL GLANDS: Unremarkable. KIDNEYS AND URETERS: The kidneys are normal in size, shape, and attenuation. No hydronephrosis, hydroureter, or calculi seen. No perinephric stranding. Simple bilateral renal cysts. No specific follow-up recommended. BLADDER: Unremarkable. GASTROINTESTINAL TRACT: The stomach is unremarkable. Normal caliber small bowel. No obstruction. Normal appendix. Colonic diverticulosis. Redemonstration of sigmoid wall thickening with adjacent inflammation. Overall similar to prior. No fluid collection. No free air. ABDOMINAL WALL: No significant hernia is appreciated. LYMPH NODES: Small retroperitoneal lymph nodes, likely reactive. These are mildly increased in prominence from prior. VASCULAR: Unremarkable. PELVIC VISCERA: The uterus and adnexa are unremarkable. OSSEOUS STRUCTURES: No acute or suspicious osseous abnormality. CT/CT abdomen pelvis w IV con IMPRESSION: Sigmoid diverticulitis. No free air or fluid collection. Similar appearance to previous. Fleischner guidelines were followed.
[2023-02-12 19:50] VITALS: BP 112/72; PULSE 91; RESP 16; TEMP 37.1; O2SAT 94; BMI 40.6
--- NOTE | 2023-02-12 19:56 | ED.GENADULT ---
HPI - General Adult General Chief complaint: General Medical Stated complaint: back and abd pain Related Data Previous Rx's Medication Instructions Recorded pantoprazole 40 mg tablet,delayed 40 mg PO DAILY #90 tabs 01/18/22 release cholecalciferol (vitamin D3) 50 50 mcg PO DAILY #90 caps 01/24/22 mcg (2,000 unit) capsule docusate sodium 100 mg capsule 100 mg PO BID #180 caps 07/18/22 (Colace) hydrocortisone 2.5 % topical cream 1 appl [place] BID-QID PRN hemorrhoids 07/18/22 with perineal applicator #30 grams (Proctosol HC) polyethylene glycol 3350 17 gram 17 g PO DAILY #100 ea 07/18/22 oral powder packet (Miralax) simethicone 180 mg capsule 180 mg PO BID PRN abdominal 07/18/22 distention #180 caps lactobacillus combination no.4 3 3,000 mmu cells PO DAILY #30 caps 10/20/22 billion cell capsule (Probiotic) linaclotide 145 mcg capsule 145 mcg PO DAILY #90 caps 10/20/22 (Linzess) amoxicillin 875 mg-potassium 1 tab PO BID #14 tabs 02/10/23 clavulanate 125 mg tablet metronidazole 500 mg tablet 250 mg PO BID #14 tabs 02/10/23 Allergies Allergy/AdvReac Type Severity Reaction Status Date / Time No Known Allergies [NKA] Allergy Verified 02/10/23 07:19 [facility] Past Medical History Medical History Chronic idiopathic constipation Cigarette smoker Diverticulitis Diverticulosis Family history of coronary artery bypass graft Hepatic steatosis Hx of sigmoidoscopy Obesity (BMI 30-39.9) Post-menopause Screening for colon cancer Smoking Unstable angina pectoris Surgical History H/O colonoscopy Hx of tonsillectomy Morbid obesity Family History Family History Brother Cancer Father Diabetes Mother Diabetes HTN (hypertension) Heart problem Family/Other Diabetes Social History Social History Household Members: Children Housing: House Do you presently have visiting nurse or other home services: No Alcohol intake: never Patient Tobacco Use Status: Never used Tobacco Cigarette Packs Per Day: 0.5 Cigarettes Per Day: 10.0 Second Hand Smoke Exposure: No Physical Exam ED Vital Signs: Vital Signs - 24 hr 02/12/23 19:50 Temperature 98.7 F Pulse Rate 91 Respiratory Rate 16 Blood Pressure 112/72 Pulse Oximetry 94 Oxygen Delivery Method Room Air BMI result Body Mass Index 40.6 Course Course Course Narrative: Patient complains of burning with urination and right-sided back pain similar to prior episodes of back pain especially when she has diverticulitis She was treated for diverticulitis with antibiotics on 02/10, abdominal pain has improved but back pain is worse and now she has burning with urination as well UA and labs are ordered This is rapid medical exam done triage pending full evaluation by provider in the emergency room Discharge Plan Discharge Prescriptions: No Action cholecalciferol (vitamin D3) 50 mcg (2,000 unit) capsule 50 mcg PO DAILY Qty: 90 3RF amoxicillin-pot clavulanate 875-125 mg tablet 1 tab PO BID Qty: 14 0RF metronidazole 500 mg tablet 250 mg PO BID Qty: 14 0RF hydrocortisone [Proctosol HC] 2.5 % cream with perineal applicator 1 appl [place] BID-QID PRN (Reason: hemorrhoids) Qty: 30 2RF docusate sodium [Colace] 100 mg capsule 100 mg PO BID Qty: 180 2RF polyethylene glycol 3350 [Miralax] 17 gram powder in packet 17 g PO DAILY Qty: 100 3RF simethicone 180 mg capsule 180 mg PO BID PRN (Reason: abdominal distention) Qty: 180 2RF Linzess 145 mcg capsule 145 mcg PO DAILY Qty: 90 3RF Probiotic 3 billion cell capsule 3,000 mmu cells PO DAILY Qty: 30 5RF Rx Instructions: administer with a meal pantoprazole 40 mg tablet,delayed release (DR/EC) 40 mg PO DAILY Qty: 90 2RF Rx Instructions: take one tablet half an hour before breakfast
[2023-02-12 22:59] VITALS: BP 96/51; PULSE 72; RESP 16; TEMP 36.7; O2SAT 98
[2023-02-12 23:01] LABS: MANUAL DIFF FLAG NO
[2023-02-12 23:02] LABS: Basophils Percent Auto 0.1 % (0-2); Eosinophils Absolute Auto 0.1 X10*3/uL (0.0-0.4); Eosinophils Percent Auto 0.9 % (0-4); Hematocrit 39.9 % (37.0-47.0); Hemoglobin 12.7 g/dl (12.0-16.0); Imm Gran Abs Auto 0.02 X10*3/uL (0.00-0.03); Imm Gran Pct Auto 0.2 % (0.0-0.4); Lymphocytes Absolute Auto 2.6 X10*3/uL (1.2-4.9); Mean Corpuscular HGB Conc 31.8 g/dl (31.0-35.0); Mean Corpuscular Hemoglobin 30.3 pg (27.0-33.0); Mean Corpuscular Volume 95.2 fL (80.0-98.0); Mean Platelet Volume 12.5 fL (9.4-12.3); Monocytes Absolute Auto 0.6 X10*3/uL (0.1-1.2); Monocytes Percent Auto 7.7 % (2-11); Neutrophils Absolute Auto 4.7 x10*3/uL (2.0-8.3); Neutrophils Percent Auto 59.1 % (45-73); Platelet Count 186 X10*3/uL (160-400); Red Blood Count 4.19 X10*6/uL (4.20-5.50)
[2023-02-12 23:20] LABS: Alanine Aminotransferase 26 U/L (0-31); Albumin Level 4.2 g/dL (3.5-5.0); Alkaline Phosphatase 74 U/L (39-117); Anion Gap 13 (12-20); Aspartate Amino Transferase 26 U/L (5-31); Bilirubin Direct 0.1 mg/dL (0.0-0.5); Bilirubin Total 0.4 mg/dL (0.0-1.0); Blood Urea Nitrogen 12 mg/dL (9-16); Calcium 9.5 mg/dL (8.4-10.2); Carbon Dioxide 24 mmol/L (22-29); Chloride 107 mmol/L (96-108); Estimated Glomerular Filt Rate > 60; Glucose Random 108 mg/dL (60-115); Lipase 27 U/L (8-78); Potassium 4.4 mmol/L (3.3-5.1); Sodium 140 mmol/L (135-145); Total Protein 7.6 g/dL (6.5-8.0)
--- NOTE | 2023-02-12 23:59 | MHC.EDTECH ---
PATIENT URINE SAMPLE COLLECTED AND SENT TO LAB .
[2023-02-13 00:07] LABS: Appearance Urine Clear; Color Urine Yellow; Glucose Urine UA Negative (Negative); Leukocyte Esterase Urine Small (1+) (Negative); Nitrite Urine Negative (Negative); PH 5.5 (5.0-9.0); Specific Gravity - Urine 1.025 (1.005-1.025); UMIC TRIGGER UACC YES; Urine Blood Large (3+) (Negative); Urine Ketones Trace mg/dL (Negative); Urine Protein 30 (1+) mg/dL (Neg-Trace)
[2023-02-13 00:22] LABS: Bacteria Urine None Seen (None Seen); Hyaline Casts Urine 0-2 /LPF (0-2); UACC Culture Trigger YES; WBC Urine 0-5 /HPF (0-5)
[2023-02-13 01:21] VITALS: BP 112/68; PULSE 82; RESP 18; TEMP 36.6
[2023-02-13 02:00] VITALS: BP 105/63; PULSE 82; RESP 18; TEMP 36.6; O2SAT 98
--- NOTE | 2023-02-13 02:16 | ED.GENADULT ---
HPI - General Adult General Chief complaint: General Medical Stated complaint: back and abd pain Time Seen by Provider: 02/13/23 01:48 History of Present Illness HPI narrative: Patient is 52 years old with a history of diverticulitis. Presents today with having abdominal pain. Patient was seen 2 days ago with the same pain has not resolved it is gotten worse it is over the left lower quadrant patient had CT scan done 2 days ago that showed diverticulitis no abscess no perforation. Patient denies any fever chills been compliant with medications. Continued to have pain. Related Data Previous Rx's Medication Instructions Recorded pantoprazole 40 mg tablet,delayed 40 mg PO DAILY #90 tabs 01/18/22 release cholecalciferol (vitamin D3) 50 50 mcg PO DAILY #90 caps 01/24/22 mcg (2,000 unit) capsule docusate sodium 100 mg capsule 100 mg PO BID #180 caps 07/18/22 (Colace) hydrocortisone 2.5 % topical cream 1 appl [place] BID-QID PRN hemorrhoids 07/18/22 with perineal applicator #30 grams (Proctosol HC) polyethylene glycol 3350 17 gram 17 g PO DAILY #100 ea 07/18/22 oral powder packet (Miralax) simethicone 180 mg capsule 180 mg PO BID PRN abdominal 07/18/22 distention #180 caps lactobacillus combination no.4 3 3,000 mmu cells PO DAILY #30 caps 10/20/22 billion cell capsule (Probiotic) linaclotide 145 mcg capsule 145 mcg PO DAILY #90 caps 10/20/22 (Linzess) amoxicillin 875 mg-potassium 1 tab PO BID #14 tabs 02/10/23 clavulanate 125 mg tablet metronidazole 500 mg tablet 250 mg PO BID #14 tabs 02/10/23 oxycodone 5 mg tablet 5 mg PO Q8H PRN pain #7 tabs 02/13/23 Allergies Allergy/AdvReac Type Severity Reaction Status Date / Time No Known Allergies [NKA] Allergy Verified 02/10/23 07:19 Review of Systems Review of Systems: Positive abdominal pain Yes all other systems are reviewed and are negative PMFSH Past Medical History Attestation statement: The following information was validated with the patient. Medical History Chronic idiopathic constipation Cigarette smoker Diverticulitis Diverticulosis Family history of coronary artery bypass graft Hepatic steatosis Hx of sigmoidoscopy Obesity (BMI 30-39.9) Post-menopause Screening for colon cancer Smoking Unstable angina pectoris Surgical History H/O colonoscopy Hx of tonsillectomy Morbid obesity Family History Family History Brother Cancer Father Diabetes Mother Diabetes HTN (hypertension) Heart problem Family/Other Diabetes Social History Social History Household Members: Children Housing: House Do you presently have visiting nurse or other home services: No Alcohol intake: never Patient Tobacco Use Status: Never used Tobacco Cigarette Packs Per Day: 0.5 Cigarettes Per Day: 10.0 Smoked in Last 30 Days: No Second Hand Smoke Exposure: No Use of substances other than those prescribed or required for medical reasons: No Advance Directives: No Advance Directives Information Provided: Yes Patient : No Physical Exam ED Vital Signs: Vital Signs - 24 hr 02/12/23 19:50 02/12/23 22:59 02/13/23 01:21 Temperature 98.7 F 98.0 F 97.8 F Pulse Rate 91 72 82 Respiratory Rate 16 16 18 Blood Pressure 112/72 96/51 L 112/68 Pulse Oximetry 94 98 Oxygen Delivery Method Room Air Room Air 02/13/23 02:00 Temperature 97.8 F Pulse Rate 82 Respiratory Rate 18 Blood Pressure 105/63 Pulse Oximetry 98 Oxygen Delivery Method Room Air BMI result Body Mass Index 40.6 Appearance: Alert. Oriented X3. No acute distress. Eyes: Pupils equal, round and reactive to light. ENT: Pharynx normal. Neck: Normal inspection. Neck supple. No lymph nodes noted. No crepitus CVS: Normal heart rate and rhythm. Pulses normal. Normal S1 and S2 Respiratory: No respiratory distress. Breath sounds normal. No Wheezing. No rales Abdomen: Diffuse abdominal pain no rebound or guarding Skin: Skin warm and dry. Normal skin color. Normal skin turgor. Extremities: No lower extremity edema. Neurovascular intact to all extremities. No Lacerations. No Rash Neuro: Oriented X 3. No motor deficit. No sensory deficit. Moving all extermities. No slurred speech Medications Administered Discontinued Medications Generic Name Dose Route Start Last Admin Trade Name Frida PRN Reason Stop Dose Admin Hydromorphone HCl 0.5 mg 02/13/23 02:12 02/13/23 02:28 Hydromorphone Hcl 0.5 Mg/0.5 Ml Syringe IVPUSH 02/13/23 02:13 0.5 mg ONCE ONE Administration Protocol Sodium Chloride 1,000 mls @ 999 mls/hr 02/13/23 02:15 02/13/23 03:35 Ns IV 02/13/23 03:15 Infused .Q1H1M JANE Infusion Ceftriaxone Sodium 1 gm/ 50 mls @ 100 mls/hr 02/13/23 02:38 02/13/23 03:54 Sodium Chloride IV 02/13/23 03:07 Infused ONCE ONE Infusion Metronidazole 500 mg in 100 mls @ 100 mls/hr 02/13/23 02:39 02/13/23 03:18 Flagyl IV 02/13/23 03:38 100 mls/hr ONCE ONE Administration Iohexol 85 ml 02/13/23 03:10 02/13/23 03:11 Iohexol 350 Mg/Ml 100 Ml Infus..Btl IV 02/13/23 03:11 85 ml ONCE ONE Administration Ondansetron HCl 4 mg 02/13/23 02:12 02/13/23 02:29 Ondansetron Hcl 4 Mg/2 Ml Vial IVPUSH 02/13/23 02:13 4 mg ONCE ONE Administration Medical Decision Making Medical Decision Making MDM Narrative: Patient's white count is normal. Complaining of abdominal pain similar to previous bouts. Patient claims it is proximally the same may have been a little worse. CT scan of the abdomen 2 days ago showed diverticulitis without any acute evidence of abscess perforation. Because of pain continuing may have been worse a repeat CT was done. It did not show any acute evidence of obstruction perforation abscess. Patient in stable condition. Already on Augmentin and Flagyl. Will have patient continue current antibiotics. Will give additional pain medications. Will have patient closely follow up on an outpatient basis. Patient urine showed no signs of infection. She is currently in stable condition with discharge home Differential Diagnosis Worsening diverticulitis, abscess, perforation Admission/Observation Consideration of admission/observation: Escalation of care including admission/observation considered Patient on re-examination well appearing no distress will discharge home. CT finding same as prior. Lab Data MDM Lab Attestation statement: I reviewed the patient's lab results. 02/12/23 22:57 02/12/23 22:57 Labs: Lab Results 02/12/23 02/12/23 02/12/23 Range/Units 22:57 22:57 23:58 WBC 8.0 (4.8-10.8) X10*3/uL RBC 4.19 L (4.20-5.50) X10*6/uL Hgb 12.7 (12.0-16.0) g/dl Hct 39.9 (37.0-47.0) % MCV 95.2 (80.0-98.0) fL MCH 30.3 (27.0-33.0) pg MCHC 31.8 (31.0-35.0) g/dl RDW 12.0 (11.0-16.0) % Plt Count 186 D (160-400) X10*3/uL MPV 12.5 H (9.4-12.3) fL Immature Gran % (Auto) 0.2 (0.0-0.4) % Neut % (Auto) 59.1 (45-73) % Lymph % (Auto) 32.0 (20-40) % [place] % (Auto) 7.7 (2-11) % Eos % (Auto) 0.9 (0-4) % Baso % (Auto) 0.1 (0-2) % Lymph # (Auto) 2.6 (1.2-4.9) X10*3/uL [place] # (Auto) 0.6 (0.1-1.2) X10*3/uL Eos # (Auto) 0.1 (0.0-0.4) X10*3/uL Baso # (Auto) 0.0 (0.0-0.2) X10*3/uL Abs Immat Gran (auto) 0.02 (0.00-0.03) X10*3/uL Absolute Neuts (auto) 4.7 (2.0-8.3) x10*3/uL Absolute Nucleated RBC 0.000 (0.0-0.012) X10*3/uL Nucleated RBC % (auto) 0.0 (0.0-0.2) /100WBC Sodium 140 (135-145) mmol/L Potassium 4.4 (3.3-5.1) mmol/L Chloride 107 (96-108) mmol/L Carbon Dioxide 24 (22-29) mmol/L Anion Gap 13 (12-20) BUN 12 (9-16) mg/dL Creatinine 0.88 (0.5-1.4) mg/dL Estim Creat Clear Calc 83.0 Estimated GFR > 60 Random Glucose 108 (60-115) mg/dL Calcium 9.5 (8.4-10.2) mg/dL Total Bilirubin 0.4 (0.0-1.0) mg/dL Direct Bilirubin 0.1 (0.0-0.5) mg/dL AST 26 (5-31) U/L ALT 26 (0-31) U/L Alkaline Phosphatase 74 (39-117) U/L Total Protein 7.6 (6.5-8.0) g/dL Albumin 4.2 (3.5-5.0) g/dL Lipase 27 (8-78) U/L Urine Color Yellow Urine Appearance Clear Urine pH 5.5 (5.0-9.0) Ur Specific [place] 1.025 (1.005-1.025) Urine Protein 30 (1+) H (Neg-Trace) mg/dL Urine Glucose (UA) Negative (Negative) mg/dL Urine Ketones Trace (Negative) mg/dL Urine Blood Large (3+) H (Negative) Urine Nitrite Negative (Negative) Ur Leukocyte Esterase Small (1+) H (Negative) Urine RBC 11-20 H (0-2) /HPF Urine WBC 0-5 (0-5) /HPF Ur Squamous Epith Cells 6-10 (0-2) /HPF Urine Bacteria None Seen (None Seen) Hyaline Casts 0-2 (0-2) /LPF Discharge Plan Discharge Clinical Impression: Diverticulitis Patient Disposition: Home, Self-Care Instructions: Diverticulitis (ED) Prescriptions: New oxycodone 5 mg tablet 5 mg PO Q8H PRN (Reason: pain) Qty: 7 0RF Rx Instructions: Partial Fill upon patient request. No Action cholecalciferol (vitamin D3) 50 mcg (2,000 unit) capsule 50 mcg PO DAILY Qty: 90 3RF amoxicillin-pot clavulanate 875-125 mg tablet 1 tab PO BID Qty: 14 0RF metronidazole 500 mg tablet 250 mg PO BID Qty: 14 0RF hydrocortisone [Proctosol HC] 2.5 % cream with perineal applicator 1 appl [place] BID-QID PRN (Reason: hemorrhoids) Qty: 30 2RF docusate sodium [Colace] 100 mg capsule 100 mg PO BID Qty: 180 2RF polyethylene glycol 3350 [Miralax] 17 gram powder in packet 17 g PO DAILY Qty: 100 3RF simethicone 180 mg capsule 180 mg PO BID PRN (Reason: abdominal distention) Qty: 180 2RF Linzess 145 mcg capsule 145 mcg PO DAILY Qty: 90 3RF Probiotic 3 billion cell capsule 3,000 mmu cells PO DAILY Qty: 30 5RF Rx Instructions: administer with a meal pantoprazole 40 mg tablet,delayed release (DR/EC) 40 mg PO DAILY Qty: 90 2RF Rx Instructions: take one tablet half an hour before breakfast
[2023-02-13] MEDS: HYDROmorphone HCl 0.5 MG/0.5 ML SYRINGE IVPUSH (02:28)
[2023-02-13] MEDS: 0.9 % Sodium Chloride 1,000 ML 999 ML IV (02:29)
[2023-02-13] MEDS: ondansetron HCL 4 MG/2 ML VIAL IVPUSH (02:29)
[2023-02-13] MEDS: iohexoL 350 MG/ML 100 ML INFUS..BTL 85 ML IV (03:11)
[2023-02-13] MEDS: metroNIDAZOLE/NS 500 MG/100 ML PIGGYBACK 100 MG IV (03:18)
[2023-02-13] MEDS: cefTRIAXone sodium 1 GM in 0.9 % Sodium Chloride 50 ML IV (03:24)
== END 2023-02-13 04:44 | disposition home or self-care (01) ==
PROVIDERS: Physician Assistant Medical; Emergency Provider Emergency Medicine Emergency Medical Services; PCP Internal Medicine
DX: K57.32 Diverticulitis of large intestine without perforation or abscess without bleeding (principal); F17.210 Nicotine dependence, cigarettes, uncomplicated
CPT/HCPCS: 36415; 74177; 80048; 80076; 81001; 83690; 85025; 87086; 96361; 96365; 96375; 99284; J0696; J1170; J2405; Q9967

== ENCOUNTER 2023-02-23 19:01 | Emergency (ER) | payer MEDICAID, SELFPAY ==
[2023-02-23 19:06] VITALS: BP 149/83; PULSE 75; RESP 18; TEMP 36.4; O2SAT 96; BMI 40.2
--- NOTE | 2023-02-23 19:07 | ED_ITS ---
HPI - Abdominal Pain General Chief Complaint: Abdominal Pain Stated Complaint: Abdominal pain Time Seen by Provider: 02/23/23 21:13 Source: patient Mode of arrival: ambulatory Limitations: language barrier (Patient speaks some Vincentian, 1st language is Georgian, annual campaign manager used) History of Present Illness HPI narrative: 52-year-old female who presents emergency department for evaluation of suprapubic and left lower quadrant abdominal pain. The patient was seen in the emergency department on 02/10/2023 and 02/13/2023 for similar pain and was diagnosed with sigmoid diverticulitis. Patient was treated with Augmentin metronidazole. She states she felt better and finished her antibiotics 3 days prior. She states that yesterday she had gradual onset/return of her diverticulitis pain. She points to her suprapubic area and left lower quadrant when asked to localize the pain. She describes the pain is a intermittent, sharp pain which is 7/10 at its worst. She has had nausea with no vomiting. She denied fever but she did have chills. She had 1 bowel movement but states she feels constipated. She denies bloody bowel movements or dark black bowel movements. Patient states she has had multiple episodes of recurrent diverticulitis but has never had any surgical procedures on her abdomen. Related Data Previous Rx's Medication Instructions Recorded pantoprazole 40 mg tablet,delayed 40 mg PO DAILY #90 tabs 01/18/22 release cholecalciferol (vitamin D3) 50 50 mcg PO DAILY #90 caps 01/24/22 mcg (2,000 unit) capsule docusate sodium 100 mg capsule 100 mg PO BID #180 caps 07/18/22 (Colace) hydrocortisone 2.5 % topical cream 1 appl PA BID-QID PRN hemorrhoids 07/18/22 with perineal applicator #30 grams (Proctosol HC) polyethylene glycol 3350 17 gram 17 g PO DAILY #100 ea 07/18/22 oral powder packet (Miralax) simethicone 180 mg capsule 180 mg PO BID PRN abdominal 07/18/22 distention #180 caps lactobacillus combination no.4 3 3,000 mmu cells PO DAILY #30 caps 10/20/22 billion cell capsule (Probiotic) linaclotide 145 mcg capsule 145 mcg PO DAILY #90 caps 10/20/22 (Linzess) amoxicillin 875 mg-potassium 1 tab PO BID #14 tabs 02/10/23 clavulanate 125 mg tablet metronidazole 500 mg tablet 250 mg PO BID #14 tabs 02/10/23 oxycodone 5 mg tablet 5 mg PO Q8H PRN pain #7 tabs 02/13/23 hydromorphone 2 mg tablet 2 mg PO Q4-6H PRN pain #10 tabs 02/23/23 (Dilaudid) levofloxacin 500 mg tablet 500 mg PO DAILY 10 days #10 tabs 02/23/23 metronidazole 500 mg tablet 500 mg PO TID 10 days #30 tabs 02/23/23 ondansetron 4 mg disintegrating 4 mg PO Q6-8H PRN nausea and 02/23/23 tablet vomiting #14 tabs Allergies Allergy/AdvReac Type Severity Reaction Status Date / Time No Known Allergies [NKA] Allergy Verified 02/10/23 07:19 Review of Systems Review of Systems Yes all other systems are reviewed and are negative [facility] Past Medical History [facility] Narrative: Social history: She denies tobacco, alcohol and drug use. Medical History Chronic idiopathic constipation Cigarette smoker Diverticulitis Diverticulosis Family history of coronary artery bypass graft Hepatic steatosis Hx of sigmoidoscopy Obesity (BMI 30-39.9) Post-menopause Screening for colon cancer Smoking Unstable angina pectoris Surgical History H/O colonoscopy Hx of tonsillectomy Morbid obesity Family History Family History Brother Cancer Father Diabetes Mother Diabetes HTN (hypertension) Heart problem Family/Other Diabetes Social History Social History Household Members: Children Housing: House Do you presently have visiting nurse or other home services: No Alcohol intake: never Patient Tobacco Use Status: Never used Tobacco Cigarette Packs Per Day: 0.5 Cigarettes Per Day: 10.0 Smoked in Last 30 Days: No Second Hand Smoke Exposure: No Use of substances other than those prescribed or required for medical reasons: No Advance Directives: No Advance Directives Information Provided: No Physical Exam ED Vital Signs: Vital Signs - 24 hr 02/23/23 19:06 02/23/23 22:11 Temperature 97.5 F 98.0 F Pulse Rate 75 78 Respiratory Rate 18 16 Blood Pressure 149/83 H 103/55 L Pulse Oximetry 96 95 Oxygen Delivery Method Room Air Room Air BMI result Body Mass Index 40.2 Const General: cooperative and no acute distress Orientation/consciousness: oriented to person and oriented to place Limitations: no limitations HENMT Head: Yes normal to inspection, Yes normocephalic and Yes atraumatic Ears: external ears normal General nose exam: Normal external nose present Face and sinus: Yes normal facial exam Mouth: Normal oral and palatal mucosa present Throat: Yes posterior oropharynx normal Eyes General: appearance normal, both eyes and all related structures Neck Neck: Yes normal visual inspection, Yes no lymphadenopathy, Yes trachea midline and Yes supple Chest Chest palpation & inspection: normal inspection of the chest and normal palpation of entire chest wall Resp Effort & Inspection: normal respiratory effort and able to speak in complete sentences Auscultation: clear to auscultation bilaterally Cardio Rate: regular rate Rhythm: regular rhythm Heart sounds: S1 normal heart sound present, S2 normal heart sound present and no murmurs GI Other: Patient has moderate left lower quadrant and mild to moderate suprapubic tenderness, there is no rebound, no voluntary or involuntary guarding, she has normoactive bowel sounds General: Yes no CVA tenderness Back/Spine/Pelvis Back: no CVA tenderness Neuro General: oriented to person and oriented to place Cognition (Neuro): normal cognition Extrem General: Yes normal to inspection Psych Appearance: grossly normal Speech and movement: Normal speech and movement present Affect: normal affect Attitude: cooperative Course Course Course Narrative: This is a rapid medical exam. Deferred additional HPI, ROS, PE to primary provider. 52 with history of diverticulitis (see here 02/10, 02/12, 02/13), completed her course of flagyl and augmentin but having continued pain in lower abdomen/back bilaterally. No fevers/vomiting. will check labs, UA VSS Medical Decision Making Medical Decision Making MDM Narrative: 52-year-old female with history of recurrent diverticulitis who was seen in the emergency department on 02/10/2023 and 02/13/[address] scans of the abdomen pelvis on these 2 visits who was diagnosed with sigmoid diverticulitis, she was treated with Augmentin and Flagyl, she states that her symptoms improved and she completed her antibiotics 3 days prior. Her symptoms however gradually return yesterday and her pain is now 7/10 in her suprapubic area and left lower quadrant. She had subjective chills but no fever. She had normal bowel movements with no diarrhea, bloody stools or dark stools. Vital signs were unremarkable except for an elevated blood pressure of 149/83. Physical examination revealed moderate left lower quadrant tenderness and mild to moderate suprapubic tenderness with no rebound no voluntary or involuntary guarding. Patient's laboratory evaluation revealed a normal CBC, CMP and lipase. Patient's presentation is consistent with recurrence of her diverticulitis. I did order IV start, normal saline x1 L, Zofran 4 mg IV for nausea and Dilaudid 1 mg IV for her pain. Patient was treated with Levaquin 500 mg orally and metronidazole 500 mg orally. 2245: Patient's pain improved after the above treatment and she will be discharged home. Differential Diagnosis Differential Diagnoses: The differential diagnosis associated with the pre sentation includes Differential diagnosis includes was not limited to recurrence of her diverticulitis, perforation, diverticular abscess, pancreatitis, viral syndrome Admission/Observation Consideration of admission/observation: Escalation of care including admission/observation considered Lab Data 02/23/23 19:25 02/23/23 19:25 Labs: Lab Results 02/23/23 02/23/23 Range/Units 19:25 19:25 WBC 9.0 (4.8-10.8) X10*3/uL RBC 4.18 L (4.20-5.50) X10*6/uL Hgb 12.9 (12.0-16.0) g/dl Hct 39.2 (37.0-47.0) % MCV 93.8 (80.0-98.0) fL MCH 30.9 (27.0-33.0) pg MCHC 32.9 (31.0-35.0) g/dl RDW 12.1 (11.0-16.0) % Plt Count 223 (160-400) X10*3/uL MPV 11.8 (9.4-12.3) fL Immature Gran % (Auto) 0.3 (0.0-0.4) % Neut % (Auto) 56.4 (45-73) % Lymph % (Auto) 34.6 (20-40) % Ness % (Auto) 6.9 (2-11) % Eos % (Auto) 1.6 (0-4) % Baso % (Auto) 0.2 (0-2) % Lymph # (Auto) 3.1 (1.2-4.9) X10*3/uL Ness # (Auto) 0.6 (0.1-1.2) X10*3/uL Eos # (Auto) 0.1 (0.0-0.4) X10*3/uL Baso # (Auto) 0.0 (0.0-0.2) X10*3/uL Abs Immat Gran (auto) 0.03 (0.00-0.03) X10*3/uL Absolute Neuts (auto) 5.0 (2.0-8.3) x10*3/uL Absolute Nucleated RBC 0.000 (0.0-0.012) X10*3/uL Nucleated RBC % (auto) 0.0 (0.0-0.2) /100WBC Sodium 142 (135-145) mmol/L Potassium 3.6 (3.3-5.1) mmol/L Chloride 108 (96-108) mmol/L Carbon Dioxide 25 (22-29) mmol/L Anion Gap 13 (12-20) BUN 18 H (9-16) mg/dL Creatinine 0.96 (0.5-1.4) mg/dL Estim Creat Clear Calc 75.7 Estimated GFR > 60 Random Glucose 101 (60-115) mg/dL Calcium 10.0 (8.4-10.2) mg/dL Total Bilirubin 0.2 (0.0-1.0) mg/dL Direct Bilirubin < 0.2 (0.0-0.5) mg/dL AST 34 H (5-31) U/L ALT 31 (0-31) U/L Alkaline Phosphatase 86 (39-117) U/L Total Protein 7.9 (6.5-8.0) g/dL Albumin 4.1 (3.5-5.0) g/dL Lipase 46 (8-78) U/L Medications Administered Discontinued Medications Generic Name Dose Route Start Last Admin Trade Name Freq PRN Reason Stop Dose Admin Hydromorphone HCl 1 mg 02/23/23 21:33 02/23/23 22:14 Hydromorphone Hcl 1 Mg/Ml Syringe IVPUSH 02/23/23 21:34 1 mg ONCE STA Administration Protocol Sodium Chloride 1,000 mls @ 999 mls/hr 02/23/23 21:33 02/23/23 22:14 Ns IV 02/23/23 22:33 999 mls/hr .Q1H1M STA Administration Levofloxacin 500 mg 02/23/23 21:33 02/23/23 22:14 Levofloxacin 500 Mg Tablet PO 02/23/23 21:34 500 mg ONCE ONE Administration Metronidazole 500 mg 02/23/23 21:33 02/23/23 22:14 Metronidazole 500 Mg Tablet PO 02/23/23 21:34 500 mg ONCE ONE Administration Ondansetron HCl 4 mg 02/23/23 21:33 02/23/23 22:13 Ondansetron Hcl 4 Mg/2 Ml Vial IVPUSH 02/23/23 21:34 4 mg ONCE ONE Administration Discharge Plan Discharge Clinical Impression: Diverticulitis of sigmoid colon Patient Disposition: Home, Self-Care Instructions: Diverticulitis (ED) Additional Instructions: Your laboratory evaluation was normal. Your symptoms are consistent with recurrence of your diverticulitis You received normal saline x1 L IV, Zofran 4 mg IV and Dilaudid 1 mg IV here in the emergency department. I am prescribing 2 antibiotics: Levaquin 500 mg pills, 1 daily for 10 days. Metronidazole 500 mg, 1 pill every 8 hours for 10 days. Take Zofran ODT 4 mg pills, 1 pill dissolved in your mouth every 8 hours as needed for nausea and vomiting. Take ibuprofen 200 mg pills, 2 pills every 6 hours as needed for pain. Take Tylenol (acetaminophen) 2 pills every 6 hours as needed for pain. For pain not relieved by ibuprofen or Tylenol take Dilaudid (hydromorphone) 2 mg pills, 1 pill every 6 hours as needed for pain. This medication will make you sleepy, do not drive or work while taking this medication. Dilaudid is a narcotic medication and can be addicting. If you are concerned about addiction you can ask the pharmacist for less pills or do not get this prescription filled. Follow-up with your doctor in 2 days. Please return to the emergency department if your symptoms get worse or if you develop any symptoms that are concerning to you. Prescriptions: New metronidazole 500 mg tablet 500 mg PO TID 10 Days Qty: 30 0RF hydromorphone [Dilaudid] 2 mg tablet 2 mg PO Q4-6H PRN (Reason: pain) Qty: 10 0RF Rx Instructions: Patient may request partial fill; Partial Fill upon patient request. levofloxacin 500 mg tablet 500 mg PO DAILY 10 Days Qty: 10 0RF ondansetron 4 mg tablet,disintegrating 4 mg PO Q6-8H PRN (Reason: nausea and vomiting) Qty: 14 0RF No Action cholecalciferol (vitamin D3) 50 mcg (2,000 unit) capsule 50 mcg PO DAILY Qty: 90 3RF amoxicillin-pot clavulanate 875-125 mg tablet 1 tab PO BID Qty: 14 0RF metronidazole 500 mg tablet 250 mg PO BID Qty: 14 0RF oxycodone 5 mg tablet 5 mg PO Q8H PRN (Reason: pain) Qty: 7 0RF Rx Instructions: Partial Fill upon patient request. hydrocortisone [Proctosol HC] 2.5 % cream with perineal applicator 1 appl PA BID-QID PRN (Reason: hemorrhoids) Qty: 30 2RF docusate sodium [Colace] 100 mg capsule 100 mg PO BID Qty: 180 2RF polyethylene glycol 3350 [Miralax] 17 gram powder in packet 17 g PO DAILY Qty: 100 3RF simethicone 180 mg capsule 180 mg PO BID PRN (Reason: abdominal distention) Qty: 180 2RF Linzess 145 mcg capsule 145 mcg PO DAILY Qty: 90 3RF Probiotic 3 billion cell capsule 3,000 mmu cells PO DAILY Qty: 30 5RF Rx Instructions: administer with a meal pantoprazole 40 mg tablet,delayed release (DR/EC) 40 mg PO DAILY Qty: 90 2RF Rx Instructions: take one tablet half an hour before breakfast
[2023-02-23 19:30] LABS: MANUAL DIFF FLAG NO
[2023-02-23 19:32] LABS: Basophils Percent Auto 0.2 % (0-2); Eosinophils Absolute Auto 0.1 X10*3/uL (0.0-0.4); Eosinophils Percent Auto 1.6 % (0-4); Hematocrit 39.2 % (37.0-47.0); Hemoglobin 12.9 g/dl (12.0-16.0); Imm Gran Abs Auto 0.03 X10*3/uL (0.00-0.03); Imm Gran Pct Auto 0.3 % (0.0-0.4); Lymphocytes Absolute Auto 3.1 X10*3/uL (1.2-4.9); Lymphocytes Percent Auto 34.6 % (20-40); Mean Corpuscular HGB Conc 32.9 g/dl (31.0-35.0); Mean Corpuscular Hemoglobin 30.9 pg (27.0-33.0); Mean Corpuscular Volume 93.8 fL (80.0-98.0); Mean Platelet Volume 11.8 fL (9.4-12.3); Monocytes Absolute Auto 0.6 X10*3/uL (0.1-1.2); Monocytes Percent Auto 6.9 % (2-11); Neutrophils Percent Auto 56.4 % (45-73); Platelet Count 223 X10*3/uL (160-400); Red Blood Count 4.18 X10*6/uL (4.20-5.50); Red Cell Distribution Width 12.1 % (11.0-16.0)
[2023-02-23 19:45] LABS: Alanine Aminotransferase 31 U/L (0-31); Albumin Level 4.1 g/dL (3.5-5.0); Alkaline Phosphatase 86 U/L (39-117); Anion Gap 13 (12-20); Aspartate Amino Transferase 34 U/L (5-31); Bilirubin Direct < 0.2 mg/dL (0.0-0.5); Bilirubin Total 0.2 mg/dL (0.0-1.0); Blood Urea Nitrogen 18 mg/dL (9-16); Carbon Dioxide 25 mmol/L (22-29); Chloride 108 mmol/L (96-108); Creatinine Clr Calc Pharmacy 75.7; Estimated Glomerular Filt Rate > 60; Glucose Random 101 mg/dL (60-115); Lipase 46 U/L (8-78); Potassium 3.6 mmol/L (3.3-5.1); Sodium 142 mmol/L (135-145); Total Protein 7.9 g/dL (6.5-8.0)
[2023-02-23 22:11] VITALS: BP 103/55; PULSE 78; RESP 16; TEMP 36.7; O2SAT 95
[2023-02-23] MEDS: ondansetron HCL 4 MG/2 ML VIAL IVPUSH (22:13)
[2023-02-23] MEDS: HYDROmorphone HCl 1 MG/ML SYRINGE IVPUSH (22:14)
[2023-02-23] MEDS: metroNIDAZOLE 500 MG TABLET PO (22:14)
[2023-02-23] MEDS: 0.9 % Sodium Chloride 1,000 ML 999 ML IV (22:14)
[2023-02-23] MEDS: levoFLOXacin 500 MG TABLET PO (22:14)
== END 2023-02-23 23:18 | disposition home or self-care (01) ==
PROVIDERS: Nurse Practitioner Family; Emergency Provider Emergency Medicine Emergency Medical Services; PCP Internal Medicine
DX: K57.32 Diverticulitis of large intestine without perforation or abscess without bleeding (principal); R10.32 Left lower quadrant pain; Z79.899 Other long term (current) drug therapy
CPT/HCPCS: 36415; 80048; 80076; 83690; 85025; 96374; 96375; 99284; J1170; J2405

== ENCOUNTER 2023-03-28 19:17 | Emergency (ER) | payer MEDICAID, SELFPAY ==
[2023-03-28 19:28] VITALS: BP 128/89; PULSE 78; RESP 18; TEMP 36.4; O2SAT 98; BMI 32.0
--- NOTE | 2023-03-28 19:29 | ED.EYEPROB ---
HPI - Eye Problem General Chief complaint: Eye Problems Stated complaint: left pink eye? Time Seen by Provider: 03/28/23 19:32 Source: patient Mode of arrival: ambulatory Limitations: no limitations History of Present Illness HPI Narrative: 52-year-old female with history of obesity, constipation, diverticulosis who presents to the ER for evaluation of left eye redness and drainage that started today. Patient reports some burning to the eye initially which has resolved. She denies any foreign body sensation. She states that eye is slightly blurry from all of the drainage and discharge. She denies any URI symptoms, fevers. No known sick contacts. chief complaint: eye pain, eye redness and vision change Onset (ago): hour(s) Onset description: gradual Duration: constant Location: left eye Eye Symptoms: burning, redness, itching and discharge Place: home Mechanism: none Severity: moderate If Pain, Quality: burning and aching Associated symptoms: none Treatments Prior to Arrival: none Related Data Previous Rx's Medication Instructions Recorded pantoprazole 40 mg tablet,delayed 40 mg PO DAILY #90 tabs 01/18/22 release cholecalciferol (vitamin D3) 50 50 mcg PO DAILY #90 caps 01/24/22 mcg (2,000 unit) capsule docusate sodium 100 mg capsule 100 mg PO BID #180 caps 07/18/22 (Colace) hydrocortisone 2.5 % topical cream 1 appl DE BID-QID PRN hemorrhoids 07/18/22 with perineal applicator #30 grams (Proctosol HC) polyethylene glycol 3350 17 gram 17 g PO DAILY #100 ea 07/18/22 oral powder packet (Miralax) simethicone 180 mg capsule 180 mg PO BID PRN abdominal 07/18/22 distention #180 caps lactobacillus combination no.4 3 3,000 mmu cells PO DAILY #30 caps 10/20/22 billion cell capsule (Probiotic) linaclotide 145 mcg capsule 145 mcg PO DAILY #90 caps 10/20/22 (Linzess) amoxicillin 875 mg-potassium 1 tab PO BID #14 tabs 02/10/23 clavulanate 125 mg tablet metronidazole 500 mg tablet 250 mg PO BID #14 tabs 02/10/23 oxycodone 5 mg tablet 5 mg PO Q8H PRN pain #7 tabs 02/13/23 hydromorphone 2 mg tablet 2 mg PO Q4-6H PRN pain #10 tabs 02/23/23 (Dilaudid) levofloxacin 500 mg tablet 500 mg PO DAILY 10 days #10 tabs 02/23/23 metronidazole 500 mg tablet 500 mg PO TID 10 days #30 tabs 02/23/23 ondansetron 4 mg disintegrating 4 mg PO Q6-8H PRN nausea and 02/23/23 tablet vomiting #14 tabs loratadine 10 mg tablet (Claritin) 10 mg PO DAILY #30 tabs 03/28/23 polymyxin B sulfate 10,000 1 drp ophthalmic (eye) Q3H 7 days 03/28/23 unit-trimethoprim 1 mg/mL eye #10 mL drops (Polytrim) Allergies Allergy/AdvReac Type Severity Reaction Status Date / Time No Known Allergies [NKA] Allergy Verified 02/10/23 07:19 Review of Systems Review of Systems: Yes all other systems are reviewed and are negative PMFSH Past Medical History Medical History Chronic idiopathic constipation Cigarette smoker Diverticulitis Diverticulosis Family history of coronary artery bypass graft Hepatic steatosis Hx of sigmoidoscopy Obesity (BMI 30-39.9) Post-menopause Screening for colon cancer Smoking Unstable angina pectoris Surgical History H/O colonoscopy Hx of tonsillectomy Morbid obesity Family History Family History Brother Cancer Father Diabetes Mother Diabetes HTN (hypertension) Heart problem Family/Other Diabetes Social History Social History Household Members: Children Housing: House Do you presently have visiting nurse or other home services: No Alcohol intake: never Patient Tobacco Use Status: Never used Tobacco Cigarette Packs Per Day: 0.5 Cigarettes Per Day: 10.0 Second Hand Smoke Exposure: No Advance Directives: No Advance Directives Information Provided: Yes Physical Exam Vital Signs: Vital Signs: Last Vital Signs Temp 97.6 F 03/28/23 19:28 Pulse 78 03/28/23 19:28 Resp 18 03/28/23 19:28 BP 128/89 03/28/23 19:28 Pulse Ox 98 03/28/23 19:28 O2 Del Method Room Air 03/28/23 19:28 BMI result Body Mass Index 32.0 Appearance: Alert. Oriented X3. No acute distress. Head: normocephalic, atraumatic. Eyes: Left sclera and conjunctiva injected with clear/white discharge, normal inspection of eyelids and associated structures. Pupils equal, round and reactive to light bilaterally. ENT: Pharynx normal. No tonsillar swelling or exudate. Neck: Normal inspection. CVS: Normal heart rate and rhythm. Pulses normal. Respiratory: No respiratory distress. Breath sounds normal. Skin: Skin warm and dry. Normal skin color. Normal skin turgor. No rashes. Extremities: No lower extremity edema. No joint swelling. Neuro/psych: Oriented X 3. grossly normal, nonfocal Medical Decision Making Medical Decision Making MDM Narrative: 52-year-old female presents the ER for evaluation of left eye redness, drainage, pain that started today. No trauma or foreign body sensation. No significant vision changes, only some blurriness due to the drainage. Exam is consistent with conjunctivitis. Will start empiric antibiotic drops given discharge in appearance of the eye. Stable for discharge home with antibiotic drops, warm soaks, outpatient follow-up. Return precautions discussed. Stable for discharge home Differential Diagnosis Differential Diagnoses: The differential diagnosis associated with the presentation includes Bacterial conjunctivitis, viral conjunctivitis, allergic conjunctivitis, chemosis External Record Review External record reviewed: Outpatient record and Prior outpatient labs Prescription Management I considered prescription management with: Antibiotic Critical Care Time Critical Care Time Critical Care Time: No Discharge Plan Discharge Clinical Impression: Conjunctivitis Patient Disposition: Home, Self-Care Instructions: Conjunctivitis (ED) Additional Instructions: use the prescribed antibiotic drops as directed use warm compresses to the left eye several times per day you can also use over the counter saline eye drops for relief Prescriptions: New polymyxin B sulf-trimethoprim [Polytrim] 10,000 unit- 1 mg/mL drops 1 drp ophthalmic (eye) Q3H 7 Days Qty: 10 0RF Rx Instructions: while awake; do not exceed 6 doses in 24 hours loratadine [Claritin] 10 mg tablet 10 mg PO DAILY Qty: 30 0RF No Action cholecalciferol (vitamin D3) 50 mcg (2,000 unit) capsule 50 mcg PO DAILY Qty: 90 3RF amoxicillin-pot clavulanate 875-125 mg tablet 1 tab PO BID Qty: 14 0RF metronidazole 500 mg tablet 250 mg PO BID Qty: 14 0RF oxycodone 5 mg tablet 5 mg PO Q8H PRN (Reason: pain) Qty: 7 0RF Rx Instructions: Partial Fill upon patient request. metronidazole 500 mg tablet 500 mg PO TID 10 Days Qty: 30 0RF hydromorphone [Dilaudid] 2 mg tablet 2 mg PO Q4-6H PRN (Reason: pain) Qty: 10 0RF Rx Instructions: Patient may request partial fill; Partial Fill upon patient request. levofloxacin 500 mg tablet 500 mg PO DAILY 10 Days Qty: 10 0RF ondansetron 4 mg tablet,disintegrating 4 mg PO Q6-8H PRN (Reason: nausea and vomiting) Qty: 14 0RF hydrocortisone [Proctosol HC] 2.5 % cream with perineal applicator 1 appl DE BID-QID PRN (Reason: hemorrhoids) Qty: 30 2RF docusate sodium [Colace] 100 mg capsule 100 mg PO BID Qty: 180 2RF polyethylene glycol 3350 [Miralax] 17 gram powder in packet 17 g PO DAILY Qty: 100 3RF simethicone 180 mg capsule 180 mg PO BID PRN (Reason: abdominal distention) Qty: 180 2RF Linzess 145 mcg capsule 145 mcg PO DAILY Qty: 90 3RF Probiotic 3 billion cell capsule 3,000 mmu cells PO DAILY Qty: 30 5RF Rx Instructions: administer with a meal pantoprazole 40 mg tablet,delayed release (DR/EC) 40 mg PO DAILY Qty: 90 2RF Rx Instructions: take one tablet half an hour before breakfast
== END 2023-03-28 19:51 | disposition home or self-care (01) ==
PROVIDERS: Emergency Provider Internal Medicine; PCP Internal Medicine
DX: H10.89 Other conjunctivitis (principal); F17.210 Nicotine dependence, cigarettes, uncomplicated; Z79.899 Other long term (current) drug therapy
CPT/HCPCS: 99282; 99283

== ENCOUNTER 2023-04-12 22:13 | Emergency (ER) | payer MEDICAID, SELFPAY ==
--- NOTE | ~2023-04-12 | CT_ITS ---
EXAMINATION: CT ABDOMEN AND PELVIS WITH CONTRAST CLINICAL INFORMATION: Left lower quadrant pain. History of diverticulitis. COMPARISON: Multiple priors, most recently 02/13/2023 TECHNIQUE: Multidetector volumetric images were obtained from the superior aspect of the liver through the pubic symphysis following administration 85 mL of Omnipaque 350 intravenous contrast. Sagittal and coronal reformatted images were obtained on the technologist's workstation. Oral contrast: No This CT examination was performed using dose optimization techniques as appropriate, variously including the following: *Automated exposure control *Adjustment of mA and/or kV according to patient size (this includes techniques or standardized protocols for targeted exams where dose is matched to indication/reason for exam; i.e. extremities or head) *Use of iterative reconstruction technique DLP: 840 mGy-cm FINDINGS: LUNG BASES: The visualized lung bases are unremarkable. LIVER, GALLBLADDER, AND BILIARY TREE: The liver is normal in size, shape, and attenuation. No focal hepatic lesion or biliary ductal dilatation is present. The gallbladder is unremarkable with no evidence of radiopaque gallstones, gallbladder wall thickening, or obvious pericholecystic inflammatory changes. PANCREAS: Unremarkable. SPLEEN: Unremarkable. ADRENAL GLANDS: Unremarkable. KIDNEYS AND URETERS: The kidneys are normal in size, shape, and attenuation. No hydronephrosis, hydroureter, or calculi seen. Bilateral simple renal cysts are benign. No follow-up imaging recommended. No perinephric stranding. BLADDER: Unremarkable. GASTROINTESTINAL TRACT: Pancolonic diverticulosis. Likely chronic wall thickening of the right colon related to chronic diverticular disease. Mild stranding along the midportion of the sigmoid colon could represent an element of active inflammation associated with diverticulitis, though less pronounced than on the previous exam from February of this year, appearing similar to August 2022. There is scar tissue between the sigmoid colon and left adnexa, however no fistula is evident. ABDOMINAL WALL: No significant hernia is appreciated. LYMPH NODES: Small lymph nodes in the sigmoid mesocolon and throughout the retroperitoneum without pathologic enlargement. VASCULAR: Patent. Minimal atherosclerotic changes of aorta. PELVIC VISCERA: Uterus and right adnexa unremarkable. Tissue/tethering between the left adnexa and sigmoid colon as described above. OSSEOUS STRUCTURES: No acute or suspicious osseous abnormalities. CT/CT abdomen pelvis w IV con IMPRESSION: * Pancolonic diverticulosis with chronic diverticular disease of the sigmoid colon. There is mild stranding along the midportion of the sigmoid colon which could represent an element of active inflammation / acute diverticulitis, though less pronounced than on the previous exam from February of this year. More similar to August 2022. * Chronic scarring/scar tissue between the sigmoid colon and left adnexa without fistula. * No drainable collection or intraperitoneal free air.
[2023-04-12 22:17] VITALS: BP 113/76; PULSE 79; RESP 18; TEMP 36; O2SAT 98; BMI 42.1
[2023-04-12 22:33] LABS: MANUAL DIFF FLAG NO
[2023-04-12 22:35] LABS: Basophils Percent Auto 0.3 % (0-2); Eosinophils Absolute Auto 0.1 X10*3/uL (0.0-0.4); Eosinophils Percent Auto 1.6 % (0-4); Hematocrit 39.7 % (37.0-47.0); Hemoglobin 12.9 g/dl (12.0-16.0); Imm Gran Abs Auto 0.02 X10*3/uL (0.00-0.03); Imm Gran Pct Auto 0.3 % (0.0-0.4); Lymphocytes Absolute Auto 2.7 X10*3/uL (1.2-4.9); Lymphocytes Percent Auto 38.8 % (20-40); Mean Corpuscular HGB Conc 32.5 g/dl (31.0-35.0); Mean Corpuscular Hemoglobin 30.8 pg (27.0-33.0); Mean Corpuscular Volume 94.7 fL (80.0-98.0); Mean Platelet Volume 12.3 fL (9.4-12.3); Monocytes Absolute Auto 0.5 X10*3/uL (0.1-1.2); Monocytes Percent Auto 6.9 % (2-11); Neutrophils Absolute Auto 3.7 x10*3/uL (2.0-8.3); Neutrophils Percent Auto 52.1 % (45-73); Platelet Count 153 X10*3/uL (160-400); Red Blood Count 4.19 X10*6/uL (4.20-5.50); Red Cell Distribution Width 12.1 % (11.0-16.0)
[2023-04-12 22:42] LABS: Appearance Urine Clear; Color Urine Yellow; Glucose Urine UA Negative (Negative); Leukocyte Esterase Urine Negative (Negative); Nitrite Urine Negative (Negative); PH 5.5 (5.0-9.0); Specific Gravity - Urine 1.025 (1.005-1.025); UMIC TRIGGER UACC YES; Urine Blood Moderate (2+) (Negative); Urine Ketones Negative (Negative); Urine Protein Negative (Neg-Trace)
[2023-04-12 23:00] LABS: Bacteria Urine None Seen (None Seen); Hyaline Casts Urine 0-2 /LPF (0-2); Squamous Epithelial Cell Urine 0-2 /HPF (0-2); WBC Urine 0-5 /HPF (0-5)
[2023-04-12 23:03] LABS: Alanine Aminotransferase 29 U/L (0-31); Albumin Level 4.1 g/dL (3.5-5.0); Alkaline Phosphatase 81 U/L (39-117); Anion Gap 17 (12-20); Aspartate Amino Transferase 36 U/L (5-31); Bilirubin Total 0.2 mg/dL (0.0-1.0); Blood Urea Nitrogen 16 mg/dL (9-16); Calcium 9.6 mg/dL (8.4-10.2); Carbon Dioxide 21 mmol/L (22-29); Chloride 108 mmol/L (96-108); Creatinine Clr Calc Pharmacy 71.7; Estimated Glomerular Filt Rate 56; Glucose Random 103 mg/dL (60-115); Lipase 58 U/L (8-78); Potassium 3.8 mmol/L (3.3-5.1); Sodium 142 mmol/L (135-145); Total Protein 7.8 g/dL (6.5-8.0)
--- NOTE | 2023-04-13 00:55 | ED_ITS ---
HPI - Abdominal Pain General Chief Complaint: Abdominal Pain Stated Complaint: Body aches Time Seen by Provider: 04/13/23 00:35 Source: patient Mode of arrival: ambulatory Limitations: language barrier ([place]ish-speaking medical laboratory technologist utilized) History of Present Illness HPI narrative: Patient is a 52-year-old female who presents emergency department for evaluation of severe left lower quadrant abdominal pain x2 hours. Also endorsing diffuse lower back pain. Has associated nausea, chills, pain with attempting to have a bowel movement. Denies fevers, chest pain, shortness of breath, vomiting, diarrhea, constipation, bloody or dark stools. At this time she denies genitourinary symptoms, however states that she was experiencing dysuria approximately 1 week ago. She reports this pain feels consistent with her prior episodes of diverticulitis. Related Data Previous Rx's Medication Instructions Recorded pantoprazole 40 mg tablet,delayed 40 mg PO DAILY #90 tabs 01/18/22 release cholecalciferol (vitamin D3) 50 50 mcg PO DAILY #90 caps 01/24/22 mcg (2,000 unit) capsule docusate sodium 100 mg capsule 100 mg PO BID #180 caps 07/18/22 (Colace) hydrocortisone 2.5 % topical cream 1 appl DC BID-QID PRN hemorrhoids 07/18/22 with perineal applicator #30 grams (Proctosol HC) polyethylene glycol 3350 17 gram 17 g PO DAILY #100 ea 07/18/22 oral powder packet (Miralax) simethicone 180 mg capsule 180 mg PO BID PRN abdominal 07/18/22 distention #180 caps lactobacillus combination no.4 3 3,000 mmu cells PO DAILY #30 caps 10/20/22 billion cell capsule (Probiotic) linaclotide 145 mcg capsule 145 mcg PO DAILY #90 caps 10/20/22 (Linzess) amoxicillin 875 mg-potassium 1 tab PO BID #14 tabs 02/10/23 clavulanate 125 mg tablet metronidazole 500 mg tablet 250 mg PO BID #14 tabs 02/10/23 oxycodone 5 mg tablet 5 mg PO Q8H PRN pain #7 tabs 02/13/23 hydromorphone 2 mg tablet 2 mg PO Q4-6H PRN pain #10 tabs 02/23/23 (Dilaudid) levofloxacin 500 mg tablet 500 mg PO DAILY 10 days #10 tabs 02/23/23 metronidazole 500 mg tablet 500 mg PO TID 10 days #30 tabs 02/23/23 ondansetron 4 mg disintegrating 4 mg PO Q6-8H PRN nausea and 02/23/23 tablet vomiting #14 tabs loratadine 10 mg tablet (Claritin) 10 mg PO DAILY #30 tabs 03/28/23 polymyxin B sulfate 10,000 1 drp ophthalmic (eye) Q3H 7 days 03/28/23 unit-trimethoprim 1 mg/mL eye #10 mL drops (Polytrim) amoxicillin 875 mg-potassium 1 tab PO BID #14 tabs 04/13/23 clavulanate 125 mg tablet Allergies Allergy/AdvReac Type Severity Reaction Status Date / Time No Known Allergies [NKA] Allergy Verified 04/12/23 22:17 Review of Systems Review of Systems Constitutional : No Weight loss, No Fever, No Chills ENT/Mouth :? No sore throat, No Rhinorrhea Eyes: No Swelling, No Redness Cardiovascular : No Chest Pain, No SOB, No Edema Respiratory : No Cough, No Sputum, No Wheezing Gastrointestinal : Positive Nausea, no Vomiting, no Diarrhea, positive abdominal pain, No Hematochezia, No Melena Genitourinary : No Dysuria, No Urinary Frequency, No Hematuria, No Urgency? Musculoskeletal : No joint pain, No Myalgias, No Joint Swelling Skin : No Skin Lesions, No rash Neuro : No Weakness, No Numbness, No Dizziness, No Headache Psych : No Anxiety/Panic, No Depression Heme/Lymph: No Bruising, No Lymphadenopathy Endocrine : No Polyuria, No Polydipsia Yes all other systems are reviewed and are negative [facility] Past Medical History Attestation statement: The following information was validated with the patient. Source: old records reviewed Medical History Chronic idiopathic constipation Cigarette smoker Diverticulitis Diverticulosis Family history of coronary artery bypass graft Hepatic steatosis Hx of sigmoidoscopy Obesity (BMI 30-39.9) Post-menopause Screening for colon cancer Smoking Unstable angina pectoris Surgical History H/O colonoscopy Hx of tonsillectomy Morbid obesity Family History Family History Brother Cancer Father Diabetes Mother Diabetes HTN (hypertension) Heart problem Family/Other Diabetes Social History Social History Household Members: Children Housing: House Do you presently have visiting nurse or other home services: No Alcohol intake: never Patient Tobacco Use Status: Never used Tobacco Cigarette Packs Per Day: 0.5 Cigarettes Per Day: 10.0 Second Hand Smoke Exposure: No Advance Directives: No Advance Directives Information Provided: No Physical Exam ED Vital Signs: Vital Signs - 24 hr 04/12/23 22:17 Temperature 96.8 F Pulse Rate 79 Respiratory Rate 18 Blood Pressure 113/76 Pulse Oximetry 98 Oxygen Delivery Method Room Air BMI result Body Mass Index 42.1 Appearance: Alert.?Oriented to person, place and time. No acute distress.?Normal affect. Eyes: Pupils equal, round and reactive to light.? ENT: Pharynx normal.?? Neck: Normal inspection.? Neck supple.?? CVS: Heart sounds normal. Normal heart rate and rhythm.? Pulses normal.?? Respiratory: No respiratory distress.? Lung sounds clear to auscultation bilaterally?? Abdomen: Soft with left lower quadrant tenderness upon palpation, no rigidity, no guarding. Normoactive bowel sounds. No pulsatile mass.?? Skin: Skin warm and dry.? Normal skin color.? Extremities: No lower extremity edema.? Neuro: Moves all extremities spontaneously. Sensation intact bilaterally. No focal neuro deficits. Ambulates with normal steady gait. Course Reevaluation(s) Reevaluation #1: Patient signed out to ED attending Dr. Rodríguez pending CT of the abdomen and pelvis and further management/disposition. Time: 01:35 Reevaluation #2: CT abdomen and pelvis show diffuse diverticular disease with possible area of diverticulitis. Patient exam is unremarkable will consider oral antibiotic and follow-up with PCP patient will be discharged on Augmentin. Time: 03:07 Medical Decision Making Medical Decision Making MDM Narrative: Patient is a 52-year-old female with past medical history of chronic constipation, diverticulitis, obesity presented to the emergency department for evaluation of abdominal pain which is reportedly consistent with prior episodes of diverticulitis. The time my examination she appears uncomfortable she is afebrile without tachycardia. Abdominal examination notable for left lower quadrant tenderness, though no rigidity or guarding. Low suspicion for acute abdomen at this time. Will obtain CBC to evaluate for leukocytosis/ anemia, CMP and lipase to evaluate for abnormal electrolytes /abnormal renal function/ abnormal hepatic/biliary function, CT of the abdomen and pelvis and Urinalysis. Patient to receive 1 L normal saline IV fluid, Zofran 4 mg IV for nausea, morphine 4 mg IV for pain Differential Diagnosis Differential Diagnoses: The differential diagnosis associated with the presentation includes (Diverticulitis, appendicitis, nephrolithiasis, hydronephrosis, urinary tract infection) Admission/Observation Consideration of admission/observation: Escalation of care including admission/observation considered (I considered admission for abdominal pain, pending serum labs and CT imaging) Lab Data MDM Lab Attestation statement: I reviewed the patient's lab results. CBC without leukocytosis or anemia, baseline thrombocytopenia. Overall unremarkable CMP. Lipase within normal limits. Urinalysis without evidence of infection, microscopic hematuria is present. 04/12/23 22:29 04/12/23 22:29 Labs: Lab Results 04/12/23 04/12/23 04/12/23 Range/Units 22:29 22:29 22:37 WBC 7.0 (4.8-10.8) X10*3/uL RBC 4.19 L (4.20-5.50) X10*6/uL Hgb 12.9 (12.0-16.0) g/dl Hct 39.7 (37.0-47.0) % MCV 94.7 (80.0-98.0) fL MCH 30.8 (27.0-33.0) pg MCHC 32.5 (31.0-35.0) g/dl RDW 12.1 (11.0-16.0) % Plt Count 153 L D (160-400) X10*3/uL MPV 12.3 (9.4-12.3) fL Immature Gran % (Auto) 0.3 (0.0-0.4) % Neut % (Auto) 52.1 (45-73) % Lymph % (Auto) 38.8 (20-40) % [place] % (Auto) 6.9 (2-11) % Eos % (Auto) 1.6 (0-4) % Baso % (Auto) 0.3 (0-2) % Lymph # (Auto) 2.7 (1.2-4.9) X10*3/uL [place] # (Auto) 0.5 (0.1-1.2) X10*3/uL Eos # (Auto) 0.1 (0.0-0.4) X10*3/uL Baso # (Auto) 0.0 (0.0-0.2) X10*3/uL Abs Immat Gran (auto) 0.02 (0.00-0.03) X10*3/uL Absolute Neuts (auto) 3.7 (2.0-8.3) x10*3/uL Absolute Nucleated RBC 0.000 (0.0-0.012) X10*3/uL Nucleated RBC % (auto) 0.0 (0.0-0.2) /100WBC Sodium 142 (135-145) mmol/L Potassium 3.8 (3.3-5.1) mmol/L Chloride 108 (96-108) mmol/L Carbon Dioxide 21 L (22-29) mmol/L Anion Gap 17 (12-20) BUN 16 (9-16) mg/dL Creatinine 1.04 (0.5-1.4) mg/dL Estim Creat Clear Calc 71.7 Estimated GFR 56 Random Glucose 103 (60-115) mg/dL Calcium 9.6 (8.4-10.2) mg/dL Total Bilirubin 0.2 (0.0-1.0) mg/dL AST 36 H (5-31) U/L ALT 29 (0-31) U/L Alkaline Phosphatase 81 (39-117) U/L Total Protein 7.8 (6.5-8.0) g/dL Albumin 4.1 (3.5-5.0) g/dL Lipase 58 (8-78) U/L Urine Color Yellow Urine Appearance Clear Urine pH 5.5 (5.0-9.0) Ur Specific [place] 1.025 (1.005-1.025) Urine Protein Negative (Neg-Trace) mg/dL Urine Glucose (UA) Negative (Negative) mg/dL Urine Ketones Negative (Negative) mg/dL Urine Blood Moderate (2+) H (Negative) Urine Nitrite Negative (Negative) Ur Leukocyte Esterase Negative (Negative) Urine RBC 3-5 H (0-2) /HPF Urine WBC 0-5 (0-5) /HPF Ur Squamous Epith Cells 0-2 (0-2) /HPF Urine Bacteria None Seen (None Seen) Hyaline Casts 0-2 (0-2) /LPF External Record Review External record reviewed: Outpatient record Medications Administered Discontinued Medications Generic Name Dose Route Start Last Admin Trade Name Freq PRN Reason Stop Dose Admin Sodium Chloride 1,000 mls @ 999 mls/hr 04/13/23 01:00 04/13/23 01:13 Ns IV 04/13/23 02:00 999 mls/hr .Q1H1M JANE Administration Iohexol 85 ml 04/13/23 01:37 04/13/23 01:37 Iohexol 350 Mg/Ml 100 Ml Infus..Btl IV 04/13/23 01:38 85 ml ONCE ONE Administration Morphine Sulfate 4 mg 04/13/23 00:57 04/13/23 01:14 Morphine Sulfate 4 Mg/Ml Cartridge IVPUSH 04/13/23 00:58 4 mg ONCE ONE Administration Protocol Ondansetron HCl 4 mg 04/13/23 00:57 04/13/23 01:14 Ondansetron Hcl 4 Mg/2 Ml Vial IVPUSH 04/13/23 00:58 4 mg ONCE ONE Administration Discharge Plan Discharge Clinical Impression: Abdominal pain, Diverticulitis Patient Disposition: Home, Self-Care Instructions: Diverticulitis (ED) Prescriptions: New amoxicillin-pot clavulanate 875-125 mg tablet 1 tab PO BID Qty: 14 0RF No Action cholecalciferol (vitamin D3) 50 mcg (2,000 unit) capsule 50 mcg PO DAILY Qty: 90 3RF amoxicillin-pot clavulanate 875-125 mg tablet 1 tab PO BID Qty: 14 0RF metronidazole 500 mg tablet 250 mg PO BID Qty: 14 0RF oxycodone 5 mg tablet 5 mg PO Q8H PRN (Reason: pain) Qty: 7 0RF Rx Instructions: Partial Fill upon patient request. metronidazole 500 mg tablet 500 mg PO TID 10 Days Qty: 30 0RF hydromorphone [Dilaudid] 2 mg tablet 2 mg PO Q4-6H PRN (Reason: pain) Qty: 10 0RF Rx Instructions: Patient may request partial fill; Partial Fill upon patient request. levofloxacin 500 mg tablet 500 mg PO DAILY 10 Days Qty: 10 0RF ondansetron 4 mg tablet,disintegrating 4 mg PO Q6-8H PRN (Reason: nausea and vomiting) Qty: 14 0RF polymyxin B sulf-trimethoprim [Polytrim] 10,000 unit- 1 mg/mL drops 1 drp ophthalmic (eye) Q3H 7 Days Qty: 10 0RF Rx Instructions: while awake; do not exceed 6 doses in 24 hours loratadine [Claritin] 10 mg tablet 10 mg PO DAILY Qty: 30 0RF hydrocortisone [Proctosol HC] 2.5 % cream with perineal applicator 1 appl DC BID-QID PRN (Reason: hemorrhoids) Qty: 30 2RF docusate sodium [Colace] 100 mg capsule 100 mg PO BID Qty: 180 2RF polyethylene glycol 3350 [Miralax] 17 gram powder in packet 17 g PO DAILY Qty: 100 3RF simethicone 180 mg capsule 180 mg PO BID PRN (Reason: abdominal distention) Qty: 180 2RF Linzess 145 mcg capsule 145 mcg PO DAILY Qty: 90 3RF Probiotic 3 billion cell capsule 3,000 mmu cells PO DAILY Qty: 30 5RF Rx Instructions: administer with a meal pantoprazole 40 mg tablet,delayed release (DR/EC) 40 mg PO DAILY Qty: 90 2RF Rx Instructions: take one tablet half an hour before breakfast Referrals: Lilli Sam MD [Physician] - [facility] [Primary Care Provider] -
[2023-04-13] MEDS: 0.9 % Sodium Chloride 1,000 ML 999 ML IV (01:13)
[2023-04-13] MEDS: ondansetron HCL 4 MG/2 ML VIAL IVPUSH (01:14)
[2023-04-13] MEDS: Morphine Sulfate 4 MG/ML CARTRIDGE IVPUSH (01:14)
[2023-04-13] MEDS: iohexoL 350 MG/ML 100 ML INFUS..BTL 85 ML IV (01:37)
== END 2023-04-13 04:33 | disposition home or self-care (01) ==
PROVIDERS: Emergency Provider Emergency Medicine
DX: K57.32 Diverticulitis of large intestine without perforation or abscess without bleeding (principal); M79.10 Myalgia, unspecified site; R10.2 Pelvic and perineal pain; R10.32 Left lower quadrant pain; R11.2 Nausea with vomiting, unspecified; Z79.899 Other long term (current) drug therapy
CPT/HCPCS: 36415; 74177; 80053; 81001; 83690; 85025; 96361; 96374; 96375; 99283; 99284; J2270; J2405; Q9967

== ENCOUNTER 2023-06-25 15:45 | Outpatient (AMB) | payer MEDICAID, SELFPAY ==
[2023-06-25 15:52] VITALS: BP 101/67; PULSE 83; BMI 41.8
--- NOTE | 2023-06-25 15:52 | MHC.OFFVIS ---
Intake Vital Signs 06/25/23 15:52 Height 5 ft 2 in Weight 228 lb 6.382 oz BMI 41.8 BP 101/67 Blood Pressure Location Lt brachial Position Sitting Pulse 83 Intake Visit Reasons: follow up missed last 2 appt Intake Note: Patient presents to in office visit today in follow up of [facility]. CC: Patient reports she continues to have a lot of gas and abdominal bloating. She states she tried the Linzess once but did not work too well for her and she went back to taking the docusate sodium and Miralax for her constipation. She reports blood in the stools. Patient would like to know why is not recommended for her to have bariatric surgery. She is requesting a script of vitamin D and E. Denies other GI symptoms. 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 Discussed with patient avoiding dietary triggers. Low FODMAP diet discussed with patient fluid list of food to avoid as well as list of food recommended given to patient. Chronic idiopathic constipation Patient continues to be constipated. I will send her script for Linzess. Patient was also encouraged to increase fluid intake as well as activity to promote better bowel motility. IBS (irritable bowel syndrome) Continues with occasional postprandial abdominal bloating. Low FODMAP diet discussed as mentioned above. Patient reports that she still is constipated. I will send her script for Linzess. I will see her in 3 months, sooner on as needed basis. Patient is agreeable to this plan and verbalizes understanding of instructions. She was given the opportunity to ask questions all questions answered. ? Thank you for allowing me to participate in her care Plan Medications New linaclotide (Linzess) 145 mcg PO DAILY 90 caps 3RF K59.04 lactobacillus combination no.4 (Probiotic) administer with a meal 3,000 mmu cells PO DAILY 30 caps 5RF TODAY'S VISIT Patient is here today for follow-up. Patient missed her last 2 appointments. Reports that she tried taking Linzess, however she felt like it was not very effective. Patient states that she has been having epigastric discomfort postprandially. Patient reports dyspepsia without dysphagia or odynophagia. Patient states that she tried Colace and MiraLax and had some results. Patient denies melena, hematochezia, unintentional weight loss or ribbon like stools. Occasional however blood after a bowel movement when wiping. Patient denies any nausea or vomiting. Patient is having hard time losing weight. Would like to see bariatric. Patient was seen by them back in 2020. Patient had financial difficulties to buying the supplements. Patient will follow-up with them again. Patient is due to go for colonoscopy in 2025. [facility] Medical History Chronic idiopathic constipation Cigarette smoker Diverticulitis Diverticulosis Family history of coronary artery bypass graft Hepatic steatosis Hx of sigmoidoscopy Obesity (BMI 30-39.9) Post-menopause Screening for colon cancer Smoking Unstable angina pectoris Surgical History H/O colonoscopy Hx of tonsillectomy Morbid obesity Family History Brother Cancer Father Diabetes Mother Diabetes HTN (hypertension) Heart problem Family/Other Diabetes Social History Household Members: Children Housing: House Do you presently have visiting nurse or other home services: No Alcohol intake: never Patient Tobacco Use Status: Never used Tobacco Cigarette Packs Per Day: 0.5 Cigarettes Per Day: 10.0 Second Hand Smoke Exposure: No Review of Systems Const Denies weight gain and Denies weight loss ENT Reports no additional complaints, Denies dysphagia and Denies odynophagia Card Reports no additional complaints Resp Reports no additional complaints GI Denies abdominal pain, Denies belching, Denies melena, Denies bloating, Denies change in bowel habits, Reports constipation, Denies dysphagia, Denies excessive flatus, Denies dyspepsia, Reports heartburn, Denies diarrhea, Denies loose stools, Denies nausea, Denies odynophagia and Denies vomiting Reports no additional complaints Musc Reports no additional complaints Neuro Reports no additional complaints Psych Reports no additional complaints Endo Reports no additional complaints Physical Exam Vital Signs: Last Vital Signs Pulse 83 06/25/23 15:52 BP 101/67 06/25/23 15:52 BMI result Body Mass Index 41.8 Const General: healthy appearing, no acute distress and well developed Nutritional Appearance: obese Orientation/consciousness: patient oriented x3 HEENT Head: Yes normal to inspection, Yes normocephalic and Yes atraumatic Face and sinus: Yes normal facial exam Mouth: Normal oral and palatal mucosa present Throat: Yes posterior oropharynx normal, Yes tonsils normal and Yes uvula midline Eyes General: appearance normal, both eyes and all related structures Neck Neck: Yes normal visual inspection, Yes full ROM and Yes trachea midline Thyroid: Thyroid normal Resp Effort & Inspection: normal respiratory effort, able to speak in complete sentences, no tracheal deviation and symmetric chest movement Auscultation: clear to auscultation bilaterally Cardio Rate: regular rate Heart sounds: S1 normal heart sound present and S2 normal heart sound present GI Inspection: Yes normal to inspection, No distended and Yes obesity Palpation (GI): Soft to palpation, not firm, nontender and No hepatosplenomegaly present Auscultation: normal bowel sounds General: Yes no CVA tenderness Back/Spine/Pelvis Back: no CVA tenderness Skin General skin exam: elasticity normal, turgor normal and dry skin Neuro General: patient oriented x3 Psych Appearance: grossly normal Mental Status: mental status grossly normal Affect: normal affect Assessment & Plan Assessment & Plan (1) Abdominal bloating with cramps: Code(s): R14.0 - Abdominal distension (gaseous); R10.9 - Unspecified abdominal pain (2) Chronic idiopathic constipation: Code(s): K59.04 - Chronic idiopathic constipation (3) IBS (irritable bowel syndrome): Code(s): K58.9 - Irritable bowel syndrome without diarrhea Qualifiers: Irritable bowel syndrome type: with constipation Qualified Code(s): K58.1 - Irritable bowel syndrome with constipation (4) GERD (gastroesophageal reflux disease): Code(s): K21.9 - Gastro-esophageal reflux disease without esophagitis Qualifiers: Esophagitis presence: esophagitis presence not specified Qualified Code(s): K21.9 - Gastro-esophageal reflux disease without esophagitis Plan Patient can continue take MiraLax and docusate sodium in the evening. I will add Dulcolax tablets. Patient was encouraged to increase fluid intake and activity to promote better bowel motility. Patient can take on as needed basis simethicone for postprandial abdominal bloating. Discussed with patient the importance of avoiding dietary triggers late night snacking. Staying upright for minimal 3 hours after meals discussed with patient. Patient was encouraged to eat smaller meals and more often. Proctosol sent to pharmacy to treat her hemorrhoids. Patient was encouraged to call our office if she will continue have rectal bleeding. Patient was encouraged to increase fluid intake and activity to promote better bowel motility. I will see her in 6 months, sooner on as needed basis. Patient is agreeable to this plan and verbalizes understanding of instructions. She was given the opportunity to ask questions and all questions answered. Thank you for allowing me to participate in her care Medications: New bisacodyl (Dulcolax (bisacodyl)) 10 mg (2 x 5 mg) PO BEDTIME 180 tabs 4RF Changed From polyethylene glycol 3350 17 grams PO DAILY 100 ea 3RF To polyethylene glycol 3350 (Miralax) 17 grams PO DAILY 100 ea 3RF Refilled docusate sodium (Colace) 100 mg PO BID 180 caps 2RF simethicone 180 mg PO BID PRN 180 caps 2RF abdominal distention pantoprazole take one tablet half an hour before breakfast 40 mg PO DAILY 90 tabs 2RF K21.9 - Gastro-esophageal reflux disease without esophagitis hydrocortisone 2.5% (Proctosol HC) 1 appl [place] BID-QID PRN 30 grams 2RF hemorrhoids K64.9 - Unspecified hemorrhoids ondansetron 4 mg PO Q6-8H PRN 14 tabs 0RF nausea and vomiting Discontinued linaclotide Discontinued Reason: Patient no longer taking 145 mcg PO DAILY 90 caps 3RF K59.04 - Chronic idiopathic constipation Coding Level of Care Code Est Pt Level 4 (73471) Diagnoses Abdominal bloating with cramps R14.0; R10.9 Chronic idiopathic constipation K59.04 Irritable bowel syndrome with constipation K58.1 Irritable bowel syndrome type: with constipation Gastroesophageal reflux disease, unspecified whether esophagitis present K21.9 Esophagitis presence: esophagitis presence not specified Time Spent (min) 35 Comment 20 minutes spent with patient and additional 15 minutes spent reviewing her records
== END 2023-06-25 16:28 | disposition home or self-care (01) ==
PROVIDERS: Visit Provider Nurse Practitioner Family
DX: R14.0 Abdominal distension (gaseous) (principal); R10.9 Unspecified abdominal pain; K59.04 Chronic idiopathic constipation; K58.1 Irritable bowel syndrome with constipation; K21.9 Gastro-esophageal reflux disease without esophagitis
CPT/HCPCS: 99214

== ENCOUNTER → 2023-06-25 15:45 | Outpatient (BNVA) | payer MEDICAID, SELFPAY | PROVIDERS: Visit Provider Nurse Practitioner Family | DX: K59.04 Chronic idiopathic constipation (principal); K58.1 Irritable bowel syndrome with constipation; K21.9 Gastro-esophageal reflux disease without esophagitis; R14.0 Abdominal distension (gaseous); R10.9 Unspecified abdominal pain | CPT/HCPCS: 99212 ==

== ENCOUNTER 2023-09-08 07:27 | Outpatient (REF) | payer MEDICAID, SELFPAY ==
[2023-09-08 08:25] LABS: Estimated Average Glucose 120 mg/dL; Hemoglobin A1c % 5.8 % (<6.0)
== END 2023-09-08 07:28 | disposition home or self-care (01) ==
LOC: HO.LAB 07:27
PROVIDERS: PCP Internal Medicine; Visit Provider Internal Medicine
DX: R73.03 Prediabetes (principal)
CPT/HCPCS: 36415; 83036

== ENCOUNTER 2023-11-04 19:41 | Emergency (ER) | payer MEDICAID, SELFPAY ==
[2023-11-04 19:48] VITALS: BP 135/70; PULSE 99; RESP 18; TEMP 36.4; O2SAT 96; BMI 42.1
[2023-11-04 20:05] LABS: MANUAL DIFF FLAG NO
[2023-11-04 20:08] LABS: Basophils Percent Auto 0.2 % (0-2); Eosinophils Absolute Auto 0.1 X10*3/uL (0.0-0.4); Eosinophils Percent Auto 0.8 % (0-4); Hematocrit 38.5 % (37.0-47.0); Hemoglobin 12.9 g/dl (12.0-16.0); Imm Gran Abs Auto 0.03 X10*3/uL (0.00-0.03); Imm Gran Pct Auto 0.3 % (0.0-0.4); Lymphocytes Absolute Auto 2.4 X10*3/uL (1.2-4.9); Lymphocytes Percent Auto 23.9 % (20-40); Mean Corpuscular HGB Conc 33.5 g/dl (31.0-35.0); Mean Corpuscular Hemoglobin 31.2 pg (27.0-33.0); Mean Platelet Volume 12.1 fL (9.4-12.3); Monocytes Absolute Auto 0.9 X10*3/uL (0.1-1.2); Monocytes Percent Auto 9.2 % (2-11); Neutrophils Absolute Auto 6.7 x10*3/uL (2.0-8.3); Neutrophils Percent Auto 65.6 % (45-73); Platelet Count 164 X10*3/uL (160-400); Red Blood Count 4.14 X10*6/uL (4.20-5.50); Red Cell Distribution Width 11.8 % (11.0-16.0); White Blood Count 10.2 X10*3/uL (4.8-10.8)
[2023-11-04 20:19] LABS: Appearance Urine Clear; Color Urine Yellow; Glucose Urine UA Negative (Negative); Leukocyte Esterase Urine Negative (Negative); Nitrite Urine Negative (Negative); UMIC TRIGGER UACC YES; Urine Blood Trace (Negative); Urine Ketones Negative (Negative); Urine Protein Negative (Neg-Trace)
[2023-11-04 20:21] LABS: Bacteria Urine None Seen (None Seen); Hyaline Casts Urine 0-2 /LPF (0-2); Squamous Epithelial Cell Urine 0-2 /HPF (0-2); WBC Urine 0-5 /HPF (0-5)
[2023-11-04 20:23] LABS: Alanine Aminotransferase 29 U/L (0-31); Albumin Level 3.6 g/dL (3.5-5.0); Alkaline Phosphatase 82 U/L (39-117); Anion Gap 10 (12-20); Aspartate Amino Transferase 30 U/L (5-31); Bilirubin Total 0.2 mg/dL (0.0-1.0); Blood Urea Nitrogen 14 mg/dL (9-16); Calcium 8.9 mg/dL (8.4-10.2); Carbon Dioxide 26 mmol/L (22-29); Chloride 108 mmol/L (96-108); Creatinine Clr Calc Pharmacy 69.5; Estimated Glomerular Filt Rate 54; Glucose Random 104 mg/dL (60-115); Lipase 36 U/L (8-78); Potassium 4.1 mmol/L (3.3-5.1); Sodium 140 mmol/L (135-145); Total Protein 6.6 g/dL (6.5-8.0)
--- NOTE | 2023-11-04 20:51 | ED.GENADULT ---
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 Patient reports her pain started yesterday. She has lower abdominal pain that radiates around to her back. This is reminiscent of her previous episodes of diverticulitis. She has subjective chills without fevers Denies any history abdominal surgeries Denies any urinary complaints. The patient endorses nausea without vomiting She feels as though she is somewhat constipated today Denies any black or bloody stool Related Data Previous Rx's Medication Instructions Recorded lactobacillus combination no.4 3 3,000 mmu cells PO DAILY #30 caps 10/20/22 billion cell capsule (Probiotic) oxycodone 5 mg tablet 5 mg PO Q8H PRN pain #7 tabs 02/13/23 hydromorphone 2 mg tablet 2 mg PO Q4-6H PRN pain #10 tabs 02/23/23 (Dilaudid) loratadine 10 mg tablet (Claritin) 10 mg PO DAILY #30 tabs 03/28/23 bisacodyl 5 mg tablet,delayed 10 mg (2 x 5 mg) PO BEDTIME #180 06/25/23 release (Dulcolax (bisacodyl)) tabs hydrocortisone 2.5 % topical cream 1 appl MA BID-QID PRN hemorrhoids 06/25/23 with perineal applicator #30 grams (Proctosol HC) ondansetron 4 mg disintegrating 4 mg PO Q6-8H PRN nausea and 06/25/23 tablet vomiting #14 tabs pantoprazole 40 mg tablet,delayed 40 mg PO DAILY #90 tabs 06/25/23 release polyethylene glycol 3350 17 gram 17 g PO DAILY #100 ea 06/25/23 oral powder packet (Miralax) simethicone 180 mg capsule 180 mg PO BID PRN abdominal 06/25/23 distention #180 caps docusate sodium 100 mg capsule 100 mg PO BID #180 caps 10/15/23 (Stool Softener) amoxicillin 875 mg-potassium 1 tab PO BID #14 tabs 11/04/23 clavulanate 125 mg tablet tramadol 50 mg tablet 50 mg PO Q6H PRN severe pain 11/04/23 (scale score 7-10) #12 tabs Allergies Allergy/AdvReac Type Severity Reaction Status Date / Time No Known Allergies [NKA] Allergy Verified 11/04/23 19:48 Review of Systems Constitutional: Constitutional: Denies body ache(s), Reports chills and Denies fever(s) Eyes: Eyes: Denies blurry vision ENT: Denies neck pain Cardiovascular: Cardiovascular: Denies chest pain and Denies dyspnea Respiratory: Respiratory: Denies cough and Denies dyspnea Gastrointestinal: Gastrointestinal: Reports abdominal pain, Reports constipation, Reports nausea and Denies vomiting Musculoskeletal: Musculoskeletal: Reports back pain and Denies neck pain Integumentary/Breasts: Skin/Breast: Denies rash PMFSH Past Medical History Medical History Chronic idiopathic constipation Cigarette smoker Diverticulitis Diverticulosis Family history of coronary artery bypass graft Hepatic steatosis Hx of sigmoidoscopy Obesity (BMI 30-39.9) Post-menopause Screening for colon cancer Smoking Unstable angina pectoris Surgical History H/O colonoscopy Hx of tonsillectomy Morbid obesity Family History Family History Brother Cancer Father Diabetes Mother Diabetes HTN (hypertension) Heart problem Family/Other Diabetes Social History Social History Household Members: Children Housing: House Do you presently have visiting nurse or other home services: No Alcohol intake: never Patient Tobacco Use Status: Never used Tobacco Cigarette Packs Per Day: 0.5 Cigarettes Per Day: 10.0 Second Hand Smoke Exposure: No Advance Directives: No Advance Directives Information Provided: No Physical Exam ED Vital Signs: Vital Signs - 24 hr 11/04/23 19:48 Temperature 97.5 F Pulse Rate 99 Respiratory Rate 18 Blood Pressure 135/70 Pulse Oximetry 96 Oxygen Delivery Method Room Air BMI result Body Mass Index 42.1 Const General: healthy appearing, comfortable, no acute distress, alert and awake Nutritional Appearance: well nourished Orientation/consciousness: patient oriented x3 HENMT Head: Yes normocephalic and Yes atraumatic Eyes Eyelids: Yes eyelids normal Conjunctivae: conjunctivae normal Sclerae: sclerae normal Corneas: corneas normal Pupils: Equal, round and reactive pupils present EOM: EOMs intact bilaterally Neck Neck: Yes full ROM Resp Effort & Inspection: normal respiratory effort, able to speak in complete sentences and not labored GI Inspection: No distended Palpation (GI): Soft to palpation, not firm, Tenderness to palpation present (GI) in the LLQ and suprapubicly, no guarding and not rigid Skin General skin exam: elasticity normal Neuro General: patient oriented x3 Cranial nerves: Yes Equal, round and reactive pupils present and Yes Bilaterally intact EOM present Cognition (Neuro): normal cognition Extrem Other: Moving all extremities well without any obvious deformities Medical Decision Making Medical Decision Making [facility] Narrative: 53-year-old female presents for evaluation of lower abdominal pain. Her physical exam is reassuring, she is tender in the left lower quadrant and left suprapubic region. There is no guarding, no distention. The patient has a longstanding history of diverticulitis. She feels this is what he is cause for pain today. Reviewed her recent workup, she has had numerous CT scans that show mild diverticulitis without complication. She has no leukocytosis, no significant lab or vital sign abnormalities. She is hemodynamically stable. I feel it is appropriate to treat the patient for acute diverticulitis without getting any imaging at this time. Patient was given return precautions Differential Diagnosis Differential Diagnoses: The differential diagnosis associated with the presentation includes Acute diverticulitis Constipation Colitis Abdominal pain UTI Obstructive uropathy Lab Data [facility] Lab Attestation statement: I reviewed the patient's lab results. No leukocytosis or anemia. Normal platelet count. No significant electrolyte abnormality. Normal renal function 11/04/23 20:01 11/04/23 20:01 Labs: Lab Results 11/04/23 11/04/23 Range/Units 20:01 20:09 WBC 10.2 (4.8-10.8) X10*3/uL RBC 4.14 L (4.20-5.50) X10*6/uL Hgb 12.9 (12.0-16.0) g/dl Hct 38.5 (37.0-47.0) % MCV 93.0 (80.0-98.0) fL MCH 31.2 (27.0-33.0) pg MCHC 33.5 (31.0-35.0) g/dl RDW 11.8 (11.0-16.0) % Plt Count 164 (160-400) X10*3/uL MPV 12.1 (9.4-12.3) fL Immature Gran % (Auto) 0.3 (0.0-0.4) % Neut % (Auto) 65.6 (45-73) % Lymph % (Auto) 23.9 (20-40) % [place] % (Auto) 9.2 (2-11) % Eos % (Auto) 0.8 (0-4) % Baso % (Auto) 0.2 (0-2) % Lymph # (Auto) 2.4 (1.2-4.9) X10*3/uL [place] # (Auto) 0.9 (0.1-1.2) X10*3/uL Eos # (Auto) 0.1 (0.0-0.4) X10*3/uL Baso # (Auto) 0.0 (0.0-0.2) X10*3/uL Abs Immat Gran (auto) 0.03 (0.00-0.03) X10*3/uL Absolute Neuts (auto) 6.7 (2.0-8.3) x10*3/uL Absolute Nucleated RBC 0.000 (0.0-0.012) X10*3/uL Nucleated RBC % (auto) 0.0 (0.0-0.2) /100WBC Sodium 140 (135-145) mmol/L Potassium 4.1 (3.3-5.1) mmol/L Chloride 108 (96-108) mmol/L Carbon Dioxide 26 (22-29) mmol/L Anion Gap 10 L (12-20) BUN 14 (9-16) mg/dL Creatinine 1.06 (0.5-1.4) mg/dL Estim Creat Clear Calc 69.5 Estimated GFR 54 Random Glucose 104 (60-115) mg/dL Calcium 8.9 D (8.4-10.2) mg/dL Total Bilirubin 0.2 (0.0-1.0) mg/dL AST 30 (5-31) U/L ALT 29 (0-31) U/L Alkaline Phosphatase 82 (39-117) U/L Total Protein 6.6 (6.5-8.0) g/dL Albumin 3.6 (3.5-5.0) g/dL Lipase 36 (8-78) U/L Urine Color Yellow Urine Appearance Clear Urine pH 8.0 (5.0-9.0) Ur Specific [place] 1.020 (1.005-1.025) Urine Protein Negative (Neg-Trace) mg/dL Urine Glucose (UA) Negative (Negative) mg/dL Urine Ketones Negative (Negative) mg/dL Urine Blood Trace H (Negative) Urine Nitrite Negative (Negative) Ur Leukocyte Esterase Negative (Negative) Urine RBC 6-10 H (0-2) /HPF Urine WBC 0-5 (0-5) /HPF Ur Squamous Epith Cells 0-2 (0-2) /HPF Urine Bacteria None Seen (None Seen) Hyaline Casts 0-2 (0-2) /LPF Tests considered The following testing was considered but not selected: Consider CT scan of the abdomen pelvis however the patient has had numerous of these that have never shown complicated diverticulitis Discharge Plan Discharge Clinical Impression: Diverticulitis Patient Disposition: Home, Self-Care Instructions: Diverticulitis (ED) Additional Instructions: Use ibuprofen/Tylenol as needed for pain. Take Augmentin twice daily for the next 7 days. If you have trouble remembering to take your antibiotics I recommend starting an alarm on your phone that will go off twice per day to remind you to take the antibiotic Return for new or worsening symptoms, especially develop fevers You may use tramadol for more severe breakthrough pain. This may make you sleepy, did not drink alcohol or drive after taking it Prescriptions: New tramadol 50 mg tablet 50 mg PO Q6H PRN (Reason: severe pain (scale score 7-10)) Qty: 12 0RF amoxicillin-pot clavulanate 875-125 mg tablet 1 tab PO BID Qty: 14 0RF No Action docusate sodium [Stool Softener] 100 mg capsule 100 mg PO BID Qty: 180 0RF oxycodone 5 mg tablet 5 mg PO Q8H PRN (Reason: pain) Qty: 7 0RF Rx Instructions: Partial Fill upon patient request. hydromorphone [Dilaudid] 2 mg tablet 2 mg PO Q4-6H PRN (Reason: pain) Qty: 10 0RF Rx Instructions: Patient may request partial fill; Partial Fill upon patient request. loratadine [Claritin] 10 mg tablet 10 mg PO DAILY Qty: 30 0RF Probiotic 3 billion cell capsule 3,000 mmu cells PO DAILY Qty: 30 5RF Rx Instructions: administer with a meal hydrocortisone [Proctosol HC] 2.5 % cream with perineal applicator 1 appl MA BID-QID PRN (Reason: hemorrhoids) Qty: 30 2RF simethicone 180 mg capsule 180 mg PO BID PRN (Reason: abdominal distention) Qty: 180 2RF polyethylene glycol 3350 [Miralax] 17 gram powder in packet 17 g PO DAILY Qty: 100 3RF pantoprazole 40 mg tablet,delayed release (DR/EC) 40 mg PO DAILY Qty: 90 2RF Rx Instructions: take one tablet half an hour before breakfast ondansetron 4 mg tablet,disintegrating 4 mg PO Q6-8H PRN (Reason: nausea and vomiting) Qty: 14 0RF bisacodyl [Dulcolax (bisacodyl)] 5 mg tablet,delayed release (DR/EC) 10 mg PO BEDTIME Qty: 180 4RF
[2023-11-04 21:03] VITALS: BP 116/76; PULSE 90; RESP 16; TEMP 37.1; O2SAT 100
[2023-11-04] MEDS: Amoxicillin/Potassium Clav 875 MG TABLET PO (21:03)
[2023-11-04] MEDS: oxyCODONE HCl Immed Release 5 MG TABLET PO (21:03)
[2023-11-04 21:52] VITALS: BP 112/60; PULSE 98; RESP 16; TEMP 37.1; O2SAT 95
== END 2023-11-04 21:50 | disposition home or self-care (01) ==
PROVIDERS: Emergency Provider Emergency Medicine; PCP Internal Medicine
DX: K57.32 Diverticulitis of large intestine without perforation or abscess without bleeding (principal); R10.30 Lower abdominal pain, unspecified; M54.50 Low back pain, unspecified; R11.0 Nausea; K59.00 Constipation, unspecified; Z79.899 Other long term (current) drug therapy
CPT/HCPCS: 36415; 80053; 81001; 83690; 85025; 99283; 99284

== ENCOUNTER 2023-11-19 04:18 | Emergency (ER) | payer MEDICAID, SELFPAY ==
--- NOTE | ~2023-11-19 | CT_ITS ---
EXAMINATION: CT ABDOMEN AND PELVIS WITH CONTRAST CLINICAL INFORMATION: Left lower quadrant pain. COMPARISON: 04/13/2023 TECHNIQUE: Multidetector volumetric images were obtained from the superior aspect of the liver through the pubic symphysis following administration 85 mL of Omnipaque 350 intravenous contrast. Sagittal and coronal reformatted images were obtained on the technologist's workstation. Oral contrast: No This CT examination was performed using dose optimization techniques as appropriate, variously including the following: *Automated exposure control *Adjustment of mA and/or kV according to patient size (this includes techniques or standardized protocols for targeted exams where dose is matched to indication/reason for exam; i.e. extremities or head) *Use of iterative reconstruction technique DLP: 793 mGy-cm FINDINGS: LUNG BASES: No pleural or pericardial effusion. LIVER, GALLBLADDER, AND BILIARY TREE: The liver is decreased in attenuation. No focal hepatic lesion or biliary ductal dilatation is present. The gallbladder is unremarkable with no evidence of radiopaque gallstones, gallbladder wall thickening, or obvious pericholecystic inflammatory changes. PANCREAS: Unremarkable. SPLEEN: Unremarkable. ADRENAL GLANDS: Unremarkable. KIDNEYS AND URETERS: The kidneys are normal in size, shape, and attenuation. Bilateral renal cysts for which no further imaging follow-up is needed. No hydronephrosis or perinephric stranding. BLADDER: Decompressed. GASTROINTESTINAL TRACT: Few mildly dilated thick-walled loops of mid small bowel in the left abdomen with mesenteric hyperemia. No small bowel obstruction. Scattered diverticula of the colon. Appendix is within normal limits. ABDOMINAL WALL: No significant hernia is appreciated. LYMPH NODES: No bulky lymphadenopathy. VASCULAR: Normal caliber abdominal aorta. PELVIC VISCERA: Retroverted uterus. OSSEOUS STRUCTURES: No destructive bone lesions. CT/CT abdomen pelvis w IV con IMPRESSION: Mildly dilated thick-walled loops of mid small bowel wall in the left abdomen with mesenteric hyperemia. This likely represents enteritis. Infectious and inflammatory etiologies should be considered.
[2023-11-19 04:30] VITALS: BP 138/86; BP 141/85; PULSE 105; PULSE 110; RESP 16; TEMP 36.6; O2SAT 99; BMI 43.3
[2023-11-19 04:46] LABS: Basophils Percent Auto 0.1 % (0-2); Eosinophils Percent Auto 0.1 % (0-4); Hematocrit 41.4 % (37.0-47.0); Hemoglobin 13.9 g/dl (12.0-16.0); Imm Gran Abs Auto 0.04 X10*3/uL (0.00-0.03); Imm Gran Pct Auto 0.3 % (0.0-0.4); Lymphocytes Percent Auto 7.3 % (20-40); MANUAL DIFF FLAG SCAN; Mean Corpuscular HGB Conc 33.6 g/dl (31.0-35.0); Mean Corpuscular Volume 95.4 fL (80.0-98.0); Mean Platelet Volume 11.6 fL (9.4-12.3); Monocytes Absolute Auto 0.1 X10*3/uL (0.1-1.2); Monocytes Percent Auto 0.6 % (2-11); Neutrophils Absolute Auto 12.8 x10*3/uL (2.0-8.3); Neutrophils Percent Auto 91.6 % (45-73); Platelet Count 160 X10*3/uL (160-400); Red Blood Count 4.34 X10*6/uL (4.20-5.50); Red Cell Distribution Width 11.7 % (11.0-16.0); SCAN SMEAR FLAG 1
[2023-11-19 05:01] LABS: Alanine Aminotransferase 36 U/L (0-31); Albumin Level 3.8 g/dL (3.5-5.0); Alkaline Phosphatase 84 U/L (39-117); Anion Gap 12 (12-20); Aspartate Amino Transferase 38 U/L (5-31); Bilirubin Total 0.3 mg/dL (0.0-1.0); Blood Urea Nitrogen 12 mg/dL (9-16); Calcium 8.8 mg/dL (8.4-10.2); Carbon Dioxide 25 mmol/L (22-29); Chloride 109 mmol/L (96-108); Creatinine Clr Calc Pharmacy 76.4; Estimated Glomerular Filt Rate 59; Glucose Random 208 mg/dL (60-115); Potassium 3.9 mmol/L (3.3-5.1); Sodium 142 mmol/L (135-145); Total Protein 6.6 g/dL (6.5-8.0)
[2023-11-19 05:13] LABS: SLIDE REVIEW VERIFIED
[2023-11-19 06:15] LABS: Appearance Urine Clear; Color Urine Yellow; Glucose Urine UA 250 mg/dL (Negative); Leukocyte Esterase Urine Trace (Negative); Nitrite Urine Negative (Negative); PH 6.5 (5.0-9.0); Specific Gravity - Urine 1.015 (1.005-1.025); UMIC TRIGGER UACC YES; Urine Blood Negative (Negative); Urine Ketones Negative (Negative); Urine Protein Negative (Neg-Trace)
[2023-11-19 06:22] LABS: Bacteria Urine None Seen (None Seen); Hyaline Casts Urine 0-2 /LPF (0-2); RBC Urine 0-2 /HPF (0-2); Squamous Epithelial Cell Urine 0-2 /HPF (0-2); WBC Urine 0-5 /HPF (0-5)
--- NOTE | 2023-11-19 07:25 | ED.ABDPAIN ---
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 She presents again today with c/o persistent intermittent subjective fevers last one 3 days ago, persistent pain and n/v. She has change in stools and feels she did no get better. She can not take the pain. She was able to keep the antibiotics down each time she reports. MD elicited complaint: abdominal pain Pertinent past history: diverticulitis Onset (ago): week(s) (2) Pain Consistency: constant Location: LLQ Severity: severe Quality: stabbing Radiation: none Migration to: no migration Exacerbating factors: movement Relieving factors: nothing Context: history of similar episodes Associated symptoms: nausea, vomiting, fever, chills and constipation Treatments prior to arrival: other (completed augmentin course) Related Data Previous Rx's Medication Instructions Recorded lactobacillus combination no.4 3 3,000 mmu cells PO DAILY #30 caps 10/20/22 billion cell capsule (Probiotic) oxycodone 5 mg tablet 5 mg PO Q8H PRN pain #7 tabs 02/13/23 hydromorphone 2 mg tablet 2 mg PO Q4-6H PRN pain #10 tabs 02/23/23 (Dilaudid) loratadine 10 mg tablet (Claritin) 10 mg PO DAILY #30 tabs 03/28/23 bisacodyl 5 mg tablet,delayed 10 mg (2 x 5 mg) PO BEDTIME #180 06/25/23 release (Dulcolax (bisacodyl)) tabs hydrocortisone 2.5 % topical cream 1 appl MA BID-QID PRN hemorrhoids 06/25/23 with perineal applicator #30 grams (Proctosol HC) ondansetron 4 mg disintegrating 4 mg PO Q6-8H PRN nausea and 06/25/23 tablet vomiting #14 tabs pantoprazole 40 mg tablet,delayed 40 mg PO DAILY #90 tabs 06/25/23 release polyethylene glycol 3350 17 gram 17 g PO DAILY #100 ea 06/25/23 oral powder packet (Miralax) simethicone 180 mg capsule 180 mg PO BID PRN abdominal 06/25/23 distention #180 caps docusate sodium 100 mg capsule 100 mg PO BID #180 caps 10/15/23 (Stool Softener) amoxicillin 875 mg-potassium 1 tab PO BID #14 tabs 11/04/23 clavulanate 125 mg tablet tramadol 50 mg tablet 50 mg PO Q6H PRN severe pain 11/04/23 (scale score 7-10) #12 tabs fluconazole 150 mg tablet 150 mg PO Q3D 2 doses #2 tabs 11/19/23 levofloxacin 500 mg tablet 500 mg PO Q24H #7 tabs 11/19/23 ondansetron 4 mg disintegrating 4 mg PO Q8H PRN nausea and 11/19/23 tablet vomiting #20 tabs oxycodone 10 mg tablet 10 mg PO Q8H PRN pain #12 tabs 11/19/23 Allergies Allergy/AdvReac Type Severity Reaction Status Date / Time No Known Allergies [NKA] Allergy Verified 11/19/23 04:34 Review of Systems Review of Systems Constitutional : No Weight loss, pos Fever, pos Chills ENT/Mouth : No sore throat, No Rhinorrhea Eyes: No Swelling, No Redness Cardiovascular : No Chest Pain, No SOB, NoEdema Respiratory : No Cough, No Sputum, No Wheezing Gastrointestinal : Positive Nausea, Positive Vomiting, no Diarrhea, positive abdominal Pain, No Hematochezia, No Melena Genitourinary : No Dysuria, No Urinary Frequency, No Hematuria, No Urgency Musculoskeletal : No joint pain, No Myalgias, No Joint Swelling Skin : No Skin Lesions, No rash Neuro : No Weakness, No Numbness, No Dizziness, No Headache Psych : No Anxiety/Panic, No Depression All other systems reviewed and are negative. [facility] Past Medical History Attestation statement: The following information was validated with the patient. Source: old records reviewed Medical History Hx of sigmoidoscopy Post-menopause Diverticulosis Diverticulitis Family history of coronary artery bypass graft Smoking Unstable angina pectoris Chronic idiopathic constipation Obesity (BMI 30-39.9) Cigarette smoker Screening for colon cancer Hepatic steatosis Surgical History H/O colonoscopy Morbid obesity Hx of tonsillectomy Family History Family History Brother Cancer Father Diabetes Mother Diabetes HTN (hypertension) Heart problem Family/Other Diabetes Social History Social History Household Members: Children Housing: House Do you presently have visiting nurse or other home services: No Alcohol intake: never Patient Tobacco Use Status: Never used Tobacco Cigarette Packs Per Day: 0.5 Cigarettes Per Day: 10.0 Smoked in Last 30 Days: No Second Hand Smoke Exposure: No Use of substances other than those prescribed or required for medical reasons: No Advance Directives: No Advance Directives Information Provided: No Patient : No Physical Exam ED Vital Signs: Vital Signs - 24 hr 11/19/23 04:30 11/19/23 07:41 11/19/23 09:50 Temperature 97.8 F Pulse Rate 105 H 88 Respiratory Rate 16 19 16 Blood Pressure 141/85 H 100/47 L Pulse Oximetry 99 98 Oxygen Delivery Method Room Air 11/19/23 09:56 Temperature 98 F Pulse Rate 89 Respiratory Rate 14 Blood Pressure 98/62 Pulse Oximetry 96 Oxygen Delivery Method Room Air BMI result Body Mass Index 43.3 Appearance: Alert. Oriented X3. No acute distress. Eyes: Pupils equal, round and reactive to light. ENT: Pharynx normal. Neck: Normal inspection. Neck supple. CVS: tachycardic heart rate and rhythm. Pulses normal. Respiratory: No respiratory distress. Breath sounds normal. Abdomen: Soft and moderate ttp in LLQ mild vol guarding no rebound Skin: Skin warm and dry. Normal skin color. Normal skin turgor. Extremities: No lower extremity edema. No calf ttp Neuro: Oriented X 3. No motor deficit. No sensory deficit. Course Course Course Narrative: attempting PO challenge Reevaluation(s) Reevaluation #1: pain improved with IV dilaudid and IV morphine received 2 doses Reevaluation #2: if patient can tolerate PO other than WBC count has negative lactic acid MAPs are good will start on levofloxacin has no diarrhea here and start on oral pain medications Reevaluation #3: patient feels much better and is ready to go home Medical Decision Making Medical Decision Making [facility] Narrative: 53 yo female PMH of obesity, tubal ligation, prior diverticulitis here with recurrent LLQ pain n/v and fevers and chills after completing augmentin course as outpatient s/p visit on 11/04. At this time will need repeat labs, CT scan and IV morphine for pain, empiric IV zosyn for suspected infection from diverticulitis. Differential Diagnosis Differential Diagnoses: The differential diagnosis associated with the presentation includes diverticulitis, colitis, renal colic, diverticular abscess Admission/Observation Consideration of admission/observation: Escalation of care including admission/observation considered no diverticulitis or abscess noted no fevers, no lactic acid able to tolerate PO will start on levofloxacin and pain medications strict precautions to return Lab Data [facility] Lab Attestation statement: I reviewed the patient's lab results. 11/19/23 04:41 11/19/23 04:41 Labs: Lab Results 11/19/23 11/19/23 11/19/23 Range/Units 04:41 06:10 07:27 WBC 14.0 H (4.8-10.8) X10*3/uL RBC 4.34 (4.20-5.50) X10*6/uL Hgb 13.9 (12.0-16.0) g/dl Hct 41.4 (37.0-47.0) % MCV 95.4 (80.0-98.0) fL MCH 32.0 (27.0-33.0) pg MCHC 33.6 (31.0-35.0) g/dl RDW 11.7 (11.0-16.0) % Plt Count 160 (160-400) X10*3/uL MPV 11.6 (9.4-12.3) fL Immature Gran % (Auto) 0.3 (0.0-0.4) % Neut % (Auto) 91.6 H (45-73) % Lymph % (Auto) 7.3 L (20-40) % [place] % (Auto) 0.6 L (2-11) % Eos % (Auto) 0.1 (0-4) % Baso % (Auto) 0.1 (0-2) % Lymph # (Auto) 1.0 L (1.2-4.9) X10*3/uL [place] # (Auto) 0.1 (0.1-1.2) X10*3/uL Eos # (Auto) 0.0 (0.0-0.4) X10*3/uL Baso # (Auto) 0.0 (0.0-0.2) X10*3/uL Abs Immat Gran (auto) 0.04 H (0.00-0.03) X10*3/uL Absolute Neuts (auto) 12.8 H (2.0-8.3) x10*3/uL Absolute Nucleated RBC 0.000 (0.0-0.012) X10*3/uL Nucleated RBC % (auto) 0.0 (0.0-0.2) /100WBC Smear Tech's Comments VERIFIED Sodium 142 (135-145) mmol/L Potassium 3.9 (3.3-5.1) mmol/L Chloride 109 H (96-108) mmol/L Carbon Dioxide 25 (22-29) mmol/L Anion Gap 12 (12-20) BUN 12 (9-16) mg/dL Creatinine 0.98 (0.5-1.4) mg/dL Estim Creat Clear Calc 76.4 Estimated GFR 59 Random Glucose 208 H (60-115) mg/dL Lactic Acid 1.7 (0.5-2.0) mmol/L Calcium 8.8 (8.4-10.2) mg/dL Total Bilirubin 0.3 (0.0-1.0) mg/dL AST 38 H (5-31) U/L ALT 36 H (0-31) U/L Alkaline Phosphatase 84 (39-117) U/L Total Protein 6.6 (6.5-8.0) g/dL Albumin 3.8 (3.5-5.0) g/dL Lipase 36 (8-78) U/L Urine Color Yellow Urine Appearance Clear Urine pH 6.5 (5.0-9.0) Ur Specific [place] 1.015 (1.005-1.025) Urine Protein Negative (Neg-Trace) mg/dL Urine Glucose (UA) 250 H (Negative) mg/dL Urine Ketones Negative (Negative) mg/dL Urine Blood Negative (Negative) Urine Nitrite Negative (Negative) Ur Leukocyte Esterase Trace H (Negative) Urine RBC 0-2 (0-2) /HPF Urine WBC 0-5 (0-5) /HPF Ur Squamous Epith Cells 0-2 (0-2) /HPF Urine Bacteria None Seen (None Seen) Hyaline Casts 0-2 (0-2) /LPF Independent Interpretation I performed an independent interpretation of an: CT Scan (no diverticulitis has enteritis) Radiology Impression Discussion of test interpretation with radiology: I have reviewed the radiologist's reading. External Record Review External record reviewed: Inpatient record Prescription Management I considered prescription management with: Pain Medication, Antibiotic and Other Medications Administered Discontinued Medications Generic Name Dose Route Start Last Admin Trade Name Freq PRN Reason Stop Dose Admin Hydromorphone HCl 0.5 mg 11/19/23 09:14 11/19/23 09:50 Hydromorphone Hcl 0.5 Mg/0.5 Ml Syringe IVPUSH 11/19/23 09:15 0.5 mg ONCE ONE Administration Protocol Sodium Chloride 1,000 mls @ 999 mls/hr 11/19/23 07:15 11/19/23 07:36 Ns IV 11/19/23 08:15 999 mls/hr .Q1H1M JANE Administration Piperacillin Sod/Tazobactam 50 mls @ 100 mls/hr 11/19/23 07:13 11/19/23 07:41 Sod 3.375 gm/ Sodium Chloride IV 11/19/23 07:42 100 mls/hr ONCE ONE Administration Sodium Chloride 1,000 mls @ 999 mls/hr 11/19/23 08:15 11/19/23 09:47 Ns IV 11/19/23 09:15 999 mls/hr .Q1H1M JANE Administration Iohexol 100 ml 11/19/23 08:24 11/19/23 08:24 Iohexol 350 Mg/Ml 100 Ml Infus..Btl IV 11/19/23 08:25 85 ml ONCE ONE Administration Morphine Sulfate 4 mg 11/19/23 07:13 11/19/23 07:37 Morphine Sulfate 4 Mg/Ml Cartridge IVPUSH 11/19/23 07:14 4 mg ONCE ONE Administration Protocol Ondansetron HCl 4 mg 11/19/23 07:13 11/19/23 07:37 Ondansetron Hcl 4 Mg/2 Ml Vial IVPUSH 11/19/23 07:14 4 mg ONCE ONE Administration Critical Care Time Critical Care Time Critical Care Time: Yes Total Critical Care Time: 35 Attestation: 2L of ivf, repeat IV morphine for pain control with improvement I attest to this time spent taking care of the patient Discharge Plan Discharge Clinical Impression: Enteritis Nausea & vomiting Qualifiers: Vomiting type: unspecified Qualified Code(s): R11.2 - Nausea with vomiting, unspecified Abdominal pain Qualifiers: Abdominal location: left lower quadrant Qualified Code(s): R10.32 - Left lower quadrant pain Patient Disposition: Home, Self-Care Instructions: Acute Nausea and Vomiting (ED), Abdominal Pain (ED), Enteritis (ED) Additional Instructions: eat a bland diet - clear liquids for 24 hours then advance slowly. return for worsening pain, fevers, inability to eat or drink or any other concerns. Consuma patrick dieta blanda: l?quidos makeda brandon 24 horas y luego avance lentamente. Regrese si el dolor empeora, tiene fiebre, no puede comer o beber o cualquier otra inquietud. Prescriptions: New levofloxacin 500 mg tablet 500 mg PO Q24H Qty: 7 0RF ondansetron 4 mg tablet,disintegrating 4 mg PO Q8H PRN (Reason: nausea and vomiting) Qty: 20 0RF fluconazole 150 mg tablet 150 mg PO Q3D Qty: 2 0RF oxycodone 10 mg tablet 10 mg PO Q8H PRN (Reason: pain) Qty: 12 0RF Rx Instructions: Partial Fill upon patient request. No Action docusate sodium [Stool Softener] 100 mg capsule 100 mg PO BID Qty: 180 0RF oxycodone 5 mg tablet 5 mg PO Q8H PRN (Reason: pain) Qty: 7 0RF Rx Instructions: Partial Fill upon patient request. hydromorphone [Dilaudid] 2 mg tablet 2 mg PO Q4-6H PRN (Reason: pain) Qty: 10 0RF Rx Instructions: Patient may request partial fill; Partial Fill upon patient request. loratadine [Claritin] 10 mg tablet 10 mg PO DAILY Qty: 30 0RF amoxicillin-pot clavulanate 875-125 mg tablet 1 tab PO BID Qty: 14 0RF tramadol 50 mg tablet 50 mg PO Q6H PRN (Reason: severe pain (scale score 7-10)) Qty: 12 0RF Probiotic 3 billion cell capsule 3,000 mmu cells PO DAILY Qty: 30 5RF Rx Instructions: administer with a meal hydrocortisone [Proctosol HC] 2.5 % cream with perineal applicator 1 appl MA BID-QID PRN (Reason: hemorrhoids) Qty: 30 2RF simethicone 180 mg capsule 180 mg PO BID PRN (Reason: abdominal distention) Qty: 180 2RF polyethylene glycol 3350 [Miralax] 17 gram powder in packet 17 g PO DAILY Qty: 100 3RF pantoprazole 40 mg tablet,delayed release (DR/EC) 40 mg PO DAILY Qty: 90 2RF Rx Instructions: take one tablet half an hour before breakfast ondansetron 4 mg tablet,disintegrating 4 mg PO Q6-8H PRN (Reason: nausea and vomiting) Qty: 14 0RF bisacodyl [Dulcolax (bisacodyl)] 5 mg tablet,delayed release (DR/EC) 10 mg PO BEDTIME Qty: 180 4RF Print Language: Maur[place]
[2023-11-19] MEDS: 0.9 % Sodium Chloride 1,000 ML 999 ML IV ×2 (07:36→09:47)
[2023-11-19] MEDS: Morphine Sulfate 4 MG/ML CARTRIDGE IVPUSH (07:37)
[2023-11-19] MEDS: ondansetron HCL 4 MG/2 ML VIAL IVPUSH (07:37)
[2023-11-19 07:41] VITALS: BP 100/47; PULSE 88; RESP 19; O2SAT 98
[2023-11-19] MEDS: Piperacillin Sodium/Tazobactam 3.375 GM in 0.9 % Sodium Chloride 50 ML IV (07:41)
[2023-11-19 07:46] LABS: Lactic Acid 1.7 mmol/L (0.5-2.0)
[2023-11-19 07:49] LABS: Lipase 36 U/L (8-78)
[2023-11-19] MEDS: iohexoL 350 MG/ML 100 ML INFUS..BTL IV (08:24)
[2023-11-19 09:50] VITALS: RESP 16
[2023-11-19] MEDS: HYDROmorphone HCl 0.5 MG/0.5 ML SYRINGE IVPUSH (09:50)
[2023-11-19 09:56] VITALS: BP 98/62; PULSE 89; RESP 14; TEMP 36.6; O2SAT 96
== END 2023-11-19 11:23 | disposition home or self-care (01) ==
PROVIDERS: Emergency Provider Emergency Medicine; PCP Internal Medicine
DX: K52.9 Noninfective gastroenteritis and colitis, unspecified (principal); R10.32 Left lower quadrant pain
CPT/HCPCS: 36415; 74177; 80053; 81001; 83605; 83690; 85025; 87040; 96374; 96375; 99284; J1170; J2270; J2405; J2543; Q9967

== ENCOUNTER 2023-12-13 20:39 | Emergency (ER) | payer MEDICAID, SELFPAY ==
--- NOTE | ~2023-12-13 | XR_ITS ---
EXAMINATION: XR CHEST CLINICAL INFORMATION: Shortness of breath COMPARISON: None available. TECHNIQUE: 2 views of the chest were obtained. FINDINGS: No significant abnormality is noted involving the heart, lungs, mediastinum, bony thorax or soft tissues. XR/XR chest 2V IMPRESSION: Unremarkable examination.
[2023-12-13 20:43] VITALS: BP 125/78; PULSE 69; RESP 18; TEMP 36.5; O2SAT 96; BMI 42.1
--- NOTE | 2023-12-13 20:44 | ED.GENADULT ---
HPI - General Adult General Chief complaint: Upper Respiratory Symptoms Stated complaint: headache,sob,bodyaches Time Seen by Provider: 12/13/23 22:42 History of Present Illness HPI narrative: 52-year-old female with past medical history diverticulosis, esophageal candidiasis presents to the ED for headache, coughing, shortness of breath, body aches, and chills for the past 2 days. Patient denies any chest pain, leg swelling, calf pain, coughing up blood, rash. Patient states no abdominal pain or genitourinary symptoms Related Data Previous Rx's ?Medication ?Instructions ?Recorded lactobacillus combination no.4 3 3,000 mmu cells PO DAILY #30 caps 10/20/22 billion cell capsule (Probiotic) oxycodone 5 mg tablet 5 mg PO Q8H PRN pain #7 tabs 02/13/23 hydromorphone 2 mg tablet 2 mg PO Q4-6H PRN pain #10 tabs 02/23/23 (Dilaudid) loratadine 10 mg tablet (Claritin) 10 mg PO DAILY #30 tabs 03/28/23 bisacodyl 5 mg tablet,delayed 10 mg (2 x 5 mg) PO BEDTIME #180 06/25/23 release (Dulcolax (bisacodyl)) tabs hydrocortisone 2.5 % topical cream 1 appl [place] BID-QID PRN hemorrhoids 06/25/23 with perineal applicator #30 grams (Proctosol HC) ondansetron 4 mg disintegrating 4 mg PO Q6-8H PRN nausea and 06/25/23 tablet vomiting #14 tabs pantoprazole 40 mg tablet,delayed 40 mg PO DAILY #90 tabs 06/25/23 release polyethylene glycol 3350 17 gram 17 g PO DAILY #100 ea 06/25/23 oral powder packet (Miralax) simethicone 180 mg capsule 180 mg PO BID PRN abdominal 06/25/23 distention #180 caps docusate sodium 100 mg capsule 100 mg PO BID #180 caps 10/15/23 (Stool Softener) amoxicillin 875 mg-potassium 1 tab PO BID #14 tabs 11/04/23 clavulanate 125 mg tablet tramadol 50 mg tablet 50 mg PO Q6H PRN severe pain 11/04/23 (scale score 7-10) #12 tabs fluconazole 150 mg tablet 150 mg PO Q3D 2 doses #2 tabs 11/19/23 levofloxacin 500 mg tablet 500 mg PO Q24H #7 tabs 11/19/23 ondansetron 4 mg disintegrating 4 mg PO Q8H PRN nausea and 11/19/23 tablet vomiting #20 tabs oxycodone 10 mg tablet 10 mg PO Q8H PRN pain #12 tabs 11/19/23 benzonatate 200 mg capsule 200 mg PO TID PRN cough 5 days #15 12/14/23 caps Allergies Allergy/AdvReac Type Severity Reaction Status Date / Time No Known Allergies [NKA] Allergy Verified 12/13/23 20:47 Review of Systems Review of Systems: Coughing, body aches, chills, shortness of breath, chills Yes all other systems are reviewed and are negative FOR[facility]LY [facility] Past Medical History Medical History Hx of sigmoidoscopy Post-menopause Diverticulosis Diverticulitis Family history of coronary artery bypass graft Smoking Unstable angina pectoris Chronic idiopathic constipation Obesity (BMI 30-39.9) Cigarette smoker Screening for colon cancer Hepatic steatosis Surgical History H/O colonoscopy Morbid obesity Hx of tonsillectomy Family History Family History Brother Cancer Father Diabetes Mother Diabetes HTN (hypertension) Heart problem Family/Other Diabetes Social History Social History Household Members: Children Housing: House Do you presently have visiting nurse or other home services: No Alcohol intake: never Patient Tobacco Use Status: Never used Tobacco Cigarette Packs Per Day: 0.5 Cigarettes Per Day: 10.0 Smoked in Last 30 Days: No Second Hand Smoke Exposure: No Use of substances other than those prescribed or required for medical reasons: No Advance Directives: No Advance Directives Information Provided: No Patient : No Physical Exam ED Vital Signs: Vital Signs - 24 hr 12/13/23 20:43 12/13/23 22:32 Temperature 97.7 F 97.9 F Pulse Rate 69 68 Respiratory Rate 18 18 Blood Pressure 125/78 126/77 Pulse Oximetry 96 97 Oxygen Delivery Method Room Air Room Air BMI result Body Mass Index 42.1 Const General: cooperative, healthy appearing, comfortable, no acute distress, well developed, alert, awake and Physically active Orientation/consciousness: oriented to person, oriented to place, oriented to time and patient oriented x3 HENMT Head: Yes normal to inspection, Yes No palpable skull fracture present, Yes normocephalic, Yes atraumatic and No abrasion Eyes General: appearance normal, both eyes and all related structures Neck Neck: Yes normal visual inspection, Yes full ROM, Yes no lymphadenopathy, Yes no meningeal signs, Yes trachea midline, Yes supple, No anterior neck swelling and No tender Chest Chest palpation & inspection: normal inspection of the chest and normal palpation of entire chest wall Resp Effort & Inspection: normal respiratory effort and able to speak in complete sentences Auscultation: clear to auscultation bilaterally Cardio Jugular venous distension: no JVD Heart sounds: S1 normal heart sound present and S2 normal heart sound present GI Inspection: Yes normal to inspection Palpation (GI): Soft to palpation, not firm, nontender, no guarding and not rigid General: No CVA tenderness Back/Spine/Pelvis Back: No CVA tenderness and No back tenderness Skin General skin exam: no rashes or lesions noted, elasticity normal and turgor normal Neuro General: oriented to person, oriented to place, oriented to time, patient oriented x3, gait normal, tone normal, moves all extremities, Normal light touch and pain sensation, no meningeal signs, no focal motor deficits, CN's II-XI intact bilaterally and normal sensation to monofilament Extrem General: Yes normal to inspection and Yes full ROM Psych Appearance: grossly normal, well kempt and not disheveled Course Course Course Narrative: RME:?53 yo female hx of diverticulosis here for eval of myalgias, fever, SOB x2 days. Denies sick contacts. took cold and flu OTC medication 4-5 hours ago. viral swabs, CXR ordered Full HPI, ROS and PE to be performed by the primary ED provider. Medical Decision Making Medical Decision Making [facility] Narrative: 53 year old female presents to the ED for coughing, shortness of breath, body aches, chills, nasal congestion, and headache. Chest x-ray normal. COVID RSV influenza negative. Patient well-appearing. Patient ASKING for work note to be excused from work. Patient DENIES any respiratory distress. Not suspecTING meningitis or pneumonia. Differential Diagnosis Differential Diagnoses: The differential diagnosis associated with the presentation includes (Pneumonia, RSV, COVID, influenza) Admission/Observation Consideration of admission/observation: Escalation of care including admission/observation considered Lab Data MDM Lab Attestation statement: I reviewed the patient's lab results. Labs: Lab Results 12/13/23 Range/Units 20:57 Influenza Type A (PCR) NEGATIVE (Negative) Influenza Type B (PCR) NEGATIVE (Negative) RSV RNA Qual (PCR) NEGATIVE (Negative) SARS-CoV-2 RNA (RT-PCR) NEGATIVE (Negative) Independent Interpretation I performed an independent interpretation of an: Plain X-Ray Radiology Impression Discussion of test interpretation with radiology: I have reviewed the radiologist's reading. Independent Historian Clinical information obtained from an independent historian. History obtained from or confirmed by: Other (Patient) External Record Review External record reviewed: Other (Prior visits) Prescription Management I considered prescription management with: Other (Coughing medication) Discharge Plan Discharge Clinical Impression: URI (upper respiratory infection) Patient Disposition: Home, Self-Care Instructions: Upper Respiratory Infection (ED) Additional Instructions: Return to the ED immediately for any chest pain, shortness of breath, coughing up blood, weakness, dizziness, abdominal pain, fever, chills, dysuria, hematuria, neck stiffness, photophobia, rash, or any other concerning symptoms. Prescriptions: New benzonatate 200 mg capsule 200 mg PO TID PRN (Reason: cough) 5 Days Qty: 15 0RF No Action docusate sodium [Stool Softener] 100 mg capsule 100 mg PO BID Qty: 180 0RF oxycodone 5 mg tablet 5 mg PO Q8H PRN (Reason: pain) Qty: 7 0RF Rx Instructions: Partial Fill upon patient request. levofloxacin 500 mg tablet 500 mg PO Q24H Qty: 7 0RF ondansetron 4 mg tablet,disintegrating 4 mg PO Q8H PRN (Reason: nausea and vomiting) Qty: 20 0RF fluconazole 150 mg tablet 150 mg PO Q3D Qty: 2 0RF oxycodone 10 mg tablet 10 mg PO Q8H PRN (Reason: pain) Qty: 12 0RF Rx Instructions: Partial Fill upon patient request. hydromorphone [Dilaudid] 2 mg tablet 2 mg PO Q4-6H PRN (Reason: pain) Qty: 10 0RF Rx Instructions: Patient may request partial fill; Partial Fill upon patient request. loratadine [Claritin] 10 mg tablet 10 mg PO DAILY Qty: 30 0RF amoxicillin-pot clavulanate 875-125 mg tablet 1 tab PO BID Qty: 14 0RF tramadol 50 mg tablet 50 mg PO Q6H PRN (Reason: severe pain (scale score 7-10)) Qty: 12 0RF Probiotic 3 billion cell capsule 3,000 mmu cells PO DAILY Qty: 30 5RF Rx Instructions: administer with a meal hydrocortisone [Proctosol HC] 2.5 % cream with perineal applicator 1 appl [place] BID-QID PRN (Reason: hemorrhoids) Qty: 30 2RF simethicone 180 mg capsule 180 mg PO BID PRN (Reason: abdominal distention) Qty: 180 2RF polyethylene glycol 3350 [Miralax] 17 gram powder in packet 17 g PO DAILY Qty: 100 3RF pantoprazole 40 mg tablet,delayed release (DR/EC) 40 mg PO DAILY Qty: 90 2RF Rx Instructions: take one tablet half an hour before breakfast ondansetron 4 mg tablet,disintegrating 4 mg PO Q6-8H PRN (Reason: nausea and vomiting) Qty: 14 0RF bisacodyl [Dulcolax (bisacodyl)] 5 mg tablet,delayed release (DR/EC) 10 mg PO BEDTIME Qty: 180 4RF Stand Alone Forms: Work/School Release Interventions: ED Discharge Assessment Last Done: 12/14/23 01:15 Discharge Date/Time: 12/14/23 01:16 Print Language: Turkmen
[2023-12-13 21:42] LABS: Influenza A PCR NEGATIVE (Negative); Influenza B PCR NEGATIVE (Negative); Resp Syncy Virus RNA Qual PCR NEGATIVE (Negative); SARS COV2 PCR INHOUSE NEGATIVE (Negative)
[2023-12-13 22:32] VITALS: BP 126/77; PULSE 68; RESP 18; TEMP 36.6; O2SAT 97
[2023-12-14 01:05] VITALS: BP 108/71; PULSE 67; RESP 16; TEMP 36.6; O2SAT 95
[2023-12-14 01:15] VITALS: BP 108/71; PULSE 67; RESP 16; TEMP 36.7; O2SAT 98
== END 2023-12-14 01:16 | disposition home or self-care (01) ==
PROVIDERS: Physician Assistant Medical; Emergency Provider Internal Medicine
DX: J06.9 Acute upper respiratory infection, unspecified (principal); R51.9 Headache, unspecified; R06.02 Shortness of breath; M79.10 Myalgia, unspecified site; Z11.52 Encounter for screening for COVID-19; Z20.822 Contact with and (suspected) exposure to COVID-19
CPT/HCPCS: 0241U; 71046; 99283; 99284

== ENCOUNTER 2024-01-11 16:58 | Emergency (ER) | payer MEDICAID, SELFPAY ==
--- NOTE | ~2024-01-11 | CT_ITS ---
EXAMINATION: CT ABDOMEN AND PELVIS WITHOUT CONTRAST CLINICAL INFORMATION: Flank pain. Right side. COMPARISON: CT abdomen pelvis dated 11/19/2023. TECHNIQUE: Multidetector volumetric imaging was performed from the superior aspect of the liver through the pubic symphysis. Sagittal and coronal reformatted images were obtained on the technologist's workstation. This CT examination was performed using dose optimization techniques as appropriate, variously including the following: *Automated exposure control *Adjustment of mA and/or kV according to patient size (this includes techniques or standardized protocols for targeted exams where dose is matched to indication/reason for exam; i.e. extremities or head) *Use of iterative reconstruction technique DLP: 752 mGy-cm FINDINGS: LUNG BASES: The visualized lung bases are unremarkable. LIVER, GALLBLADDER, AND BILIARY TREE: The liver is normal in size, shape, and attenuation. No focal hepatic lesion or biliary ductal dilatation is present. The gallbladder is unremarkable with no evidence of radiopaque gallstones, gallbladder wall thickening, or obvious pericholecystic inflammatory changes. PANCREAS: Unremarkable. SPLEEN: Unremarkable. ADRENAL GLANDS: Unremarkable. KIDNEYS AND URETERS: The kidneys are normal in size, shape, and attenuation. No hydronephrosis, hydroureter, or calculi seen. No perinephric stranding. There is a stable 4.8 cm right renal cyst and a stable 0.9 cm left renal cyst. No further imaging follow-up is required. BLADDER: Unremarkable. GASTROINTESTINAL TRACT: The small bowel and colon are normal in caliber. There is no pericolonic inflammatory stranding. There is mild sigmoid colon diverticulosis. The appendix is normal in appearance. ABDOMINAL WALL: No significant hernia is appreciated. LYMPH NODES: No abdominal or pelvic lymphadenopathy. VASCULAR: No abdominal aortic aneurysm. PELVIC VISCERA: The uterus is normal in appearance. There is no adnexal mass. OSSEOUS STRUCTURES: Unremarkable. CT/CT abdomen pelvis wo IV con IMPRESSION: No acute intra-abdominal/intrapelvic abnormality. Mild sigmoid colon diverticulosis. Fleischner guidelines were followed.
--- NOTE | 2024-01-11 17:30 | ED_ITS ---
HPI - General Adult General Chief complaint: Urogenital-Female Stated complaint: kidney infection? Time Seen by Provider: 01/11/24 20:22 Source: patient and caseworker intake (all interactions with this patient were facilitated by an [facility] senior software engineer analytics) Mode of arrival: ambulatory Limitations: language barrier (all interactions with this patient were facilitated by an [facility] senior software engineer analytics) History of Present Illness HPI narrative: Patient is a 53 year old assigned female at with no reported medical history presenting to the emergency department today with right flank pain, painful urination, and foul smelling urine. Patient states that over the last 5 days she has had right sided flank pain, painful urination, and foul smelling urine. Patient denies any dizziness, lightheadedness, abdominal pain, nausea, vomiting, fever, chills, blurry vision, double vision, loss of vision, chest pain, difficulty breathing, shortness of breath, back pain, night sweats, increased urinary frequency, increased urinary urgency, blood in her urine or stool, syncope or a near syncopal episode, recent trauma or falls, bowel incontinence, bladder incontinence, bowel retention, bladder retention, or any other complaints at this time. Onset (ago): day(s) (5) Location: right (flank) Severity: mild Severity scale (1-10): 3 Relieving factors: none Exacerbating factors: none Associated symptoms: denies other symptoms Treatments prior to arrival: none Related Data Previous Rx's ?Medication ?Instructions ?Recorded lactobacillus combination no.4 3 3,000 mmu cells PO DAILY #30 caps 10/20/22 billion cell capsule (Probiotic) oxycodone 5 mg tablet 5 mg PO Q8H PRN pain #7 tabs 02/13/23 hydromorphone 2 mg tablet 2 mg PO Q4-6H PRN pain #10 tabs 02/23/23 (Dilaudid) loratadine 10 mg tablet (Claritin) 10 mg PO DAILY #30 tabs 03/28/23 bisacodyl 5 mg tablet,delayed 10 mg (2 x 5 mg) PO BEDTIME #180 06/25/23 release (Dulcolax (bisacodyl)) tabs hydrocortisone 2.5 % topical cream 1 appl HI BID-QID PRN hemorrhoids 06/25/23 with perineal applicator #30 grams (Proctosol HC) ondansetron 4 mg disintegrating 4 mg PO Q6-8H PRN nausea and 06/25/23 tablet vomiting #14 tabs pantoprazole 40 mg tablet,delayed 40 mg PO DAILY #90 tabs 06/25/23 release amoxicillin 875 mg-potassium 1 tab PO BID #14 tabs 11/04/23 clavulanate 125 mg tablet tramadol 50 mg tablet 50 mg PO Q6H PRN severe pain 11/04/23 (scale score 7-10) #12 tabs fluconazole 150 mg tablet 150 mg PO Q3D 2 doses #2 tabs 11/19/23 levofloxacin 500 mg tablet 500 mg PO Q24H #7 tabs 11/19/23 ondansetron 4 mg disintegrating 4 mg PO Q8H PRN nausea and 11/19/23 tablet vomiting #20 tabs oxycodone 10 mg tablet 10 mg PO Q8H PRN pain #12 tabs 11/19/23 benzonatate 200 mg capsule 200 mg PO TID PRN cough 5 days #15 12/14/23 caps docusate sodium 100 mg capsule 100 mg PO BID #180 caps 12/26/23 (Stool Softener) simethicone 180 mg capsule 180 mg PO BID PRN abdominal 12/26/23 distention #180 caps polyethylene glycol 3350 17 gram 17 g PO DAILY #100 ea 01/10/24 oral powder packet (Miralax) cefuroxime axetil 250 mg tablet 250 mg PO BID 7 days #14 tabs 01/11/24 Allergies Allergy/AdvReac Type Severity Reaction Status Date / Time No Known Allergies [NKA] Allergy Verified 01/11/24 17:33 Review of Systems 2 Constitutional: Constitutional: Reports no additional constitutional complaints, Denies chills, Denies fever(s) and Denies night sweats Eyes: Eyes: Reports no additional eye complaints, Denies blurry vision, Denies change in vision, Denies diplopia, Denies eye discharge, Denies loss of vision and Denies eye pain ENT: Denies dizziness Cardiovascular: Cardiovascular: Reports no additional cardiovascular complaints, Denies chest pain, Denies lightheadedness, Denies Loss of Consciousness and Denies dyspnea Respiratory: Respiratory: Reports no additional respiratory complaints and Denies dyspnea Gastrointestinal: Gastrointestinal: Reports no additional gastrointestinal complaints, Denies abdominal pain, Denies melena, Denies hematochezia, Denies change in bowel habits and Denies change in stool character Genitourinary: Genitourinary: Denies hematuria, Denies urinary frequency, Reports dysuria, Denies urinary incontinence, Denies urinary hesitancy and Denies urinary urgency Comments: right flank pain, foul smelling urine Musculoskeletal: Musculoskeletal: Reports no additional musculoskeletal complaints, Denies numbness and Denies tingling Neurologic: Denies dizziness, Denies loss of vision, Denies numbness and Denies tingling Psychiatric: Psychiatric: Reports no additional psychiatric complaints Endocrine: Endocrine: Reports no additional endocrine complaints Hematologic/Lymphatic: Hematologic/Lymphatic: Reports no additional hematologic/lymphatic complaints Allergic/Immunologic: Allergic/Immunologic: Reports no additional allergic/immunologic complaints PMFSH Past Medical History Attestation statement: The following information was validated with the patient. Source: old records reviewed and nursing notes reviewed Medical History Hx of sigmoidoscopy Post-menopause Diverticulosis Diverticulitis Family history of coronary artery bypass graft Smoking Unstable angina pectoris Chronic idiopathic constipation Obesity (BMI 30-39.9) Cigarette smoker Screening for colon cancer Hepatic steatosis Surgical History H/O colonoscopy Morbid obesity Hx of tonsillectomy Family History Family History Brother Cancer Father Diabetes Mother Diabetes HTN (hypertension) Heart problem Family/Other Diabetes Social History Social History Household Members: Children Housing: House Do you presently have visiting nurse or other home services: No Alcohol intake: never Patient Tobacco Use Status: Never used Tobacco Cigarette Packs Per Day: 0.5 Cigarettes Per Day: 10.0 Second Hand Smoke Exposure: No Advance Directives: No Advance Directives Information Provided: No Physical Exam ED Vital Signs: Vital Signs - 24 hr 01/11/24 17:31 01/11/24 20:20 01/11/24 22:09 Temperature 98.3 F 98.3 F 98.3 F Pulse Rate 80 84 84 Respiratory Rate 16 18 18 Blood Pressure 115/69 102/61 102/61 Pulse Oximetry 95 97 97 Oxygen Delivery Method Room Air Room Air Room Air BMI result Body Mass Index 42.1 Const General: cooperative, no acute distress, alert and awake Nutritional Appearance: well nourished Orientation/consciousness: patient oriented x3 Limitations: no limitations HENMT Head: Yes normal to inspection and Yes atraumatic Ears: hearing grossly normal bilaterally and external ears normal General nose exam: Normal external nose present, no nasal discharge noted and no epistaxis Face and sinus: Yes normal facial exam, No abrasion and No laceration Mouth: Normal oral and palatal mucosa present, no drooling and no muffled voice Eyes General: appearance normal, both eyes and all related structures Periorbital: periorbital findings normal Eyelids: Yes eyelids normal Conjunctivae: conjunctivae normal Pupils: Equal, round and reactive pupils present EOM: EOMs intact bilaterally Neck Neck: Yes normal visual inspection, Yes full ROM and Yes no lymphadenopathy Chest Chest palpation & inspection: normal inspection of the chest Resp Effort & Inspection: normal respiratory effort and able to speak in complete sentences GI Inspection: Yes normal to inspection Palpation (GI): Soft to palpation, not firm, nontender and no guarding Neuro General: patient oriented x3 and moves all extremities Cranial nerves: Yes Equal, round and reactive pupils present Cognition (Neuro): normal cognition Motor exam (neuro): 5/5 motor strength present throughout Sensory Exam: Normal double simultaneous stimulation for sensation Coordination: [id number] test normal Extrem General: Yes normal to inspection, Yes full ROM and Yes capillary refill normal Psych Appearance: grossly normal Mental Status: mental status grossly normal Affect: normal affect Attitude: cooperative Thought process: Normal thought process present Thought content: Normal thought content present Insight: Good insight present (Psych) Course Course Course Narrative: This is a rapid medical exam performed by Leidy Bosch NP: Additional HPI, ROS, PE not included below will be deferred to primary provider. Patient is a 53-year-old female presenting to the emergency department with 5 days of right flank pain, dysuria, and foul smelling urine. Denies history of kidney stones. Denies hematuria or fevers. + right CVAT. Plan: UA, labs Medications Administered Discontinued Medications Generic Name Dose Route Start Last Admin Trade Name Freq PRN Reason Stop Dose Admin Cefuroxime Axetil 250 mg 01/11/24 21:37 01/11/24 21:41 Cefuroxime Axetil 250 Mg Tablet PO 01/11/24 21:38 250 mg ONCE ONE Administration Ketorolac Tromethamine 15 mg 01/11/24 21:54 01/11/24 22:07 Ketorolac Tromethamine 15 Mg/Ml Vial IM 01/11/24 21:55 15 mg ONCE ONE Administration Medical Decision Making Medical Decision Making [facility] Narrative: Patient is a 53 year old assigned female at with no reported medical history presenting to the emergency department today with right sided flank pain, painful urination, and foul smelling urine Patient's physical exam was unremarkable. Patient's blood work was unremarkable. Patient's urine showed an acute UTI. Patient's abdomen/pelvis CT showed no acute process. I explained my physical exam findings as well as all test results to the patient. I answered all questions asked by the patient. I stressed the importance of the patient taking her medication as prescribed. I stressed the importance of the patient following up with her primary care provider. I stressed the importance of the patient returning to the emergency department immediately if her symptoms were to worsen or if she were to develop any dizziness, shortness of breath, difficulty breathing, chest pain, blurry vision, loss of vision, nausea, vomiting, abdominal pain, fever, chills, back pain, or any other complaints. Patient verbalized agreement and understanding with this treatment plan and discharge. Differential Diagnosis Differential Diagnoses: The differential diagnosis associated with the presentation includes Dysuria UTI Flank pain Admission/Observation Consideration of admission/observation: Escalation of care including admission/observation considered Patient would have been admitted to the hospital had her work up had any findings where hospital admission was appropriate and her clinical presentation warranted hospital admission. Lab Data [facility] Lab Attestation statement: I reviewed the patient's lab results. My interpretation of these results are in the [facility] Rationale portion of this note. 01/11/24 18:04 01/11/24 18:04 Labs: Lab Results 01/11/24 Range/Units 18:04 WBC 8.9 (4.8-10.8) X10*3/uL RBC 4.09 L (4.20-5.50) X10*6/uL Hgb 12.8 (12.0-16.0) g/dl Hct 38.8 (37.0-47.0) % MCV 94.9 (80.0-98.0) fL MCH 31.3 (27.0-33.0) pg MCHC 33.0 (31.0-35.0) g/dl RDW 11.9 (11.0-16.0) % Plt Count 164 (160-400) X10*3/uL MPV 12.7 H (9.4-12.3) fL Immature Gran % (Auto) 0.1 (0.0-0.4) % Neut % (Auto) 51.3 (45-73) % Lymph % (Auto) 36.8 (20-40) % [place] % (Auto) 9.6 (2-11) % Eos % (Auto) 2.0 (0-4) % Baso % (Auto) 0.2 (0-2) % Lymph # (Auto) 3.3 (1.2-4.9) X10*3/uL [place] # (Auto) 0.9 (0.1-1.2) X10*3/uL Eos # (Auto) 0.2 (0.0-0.4) X10*3/uL Baso # (Auto) 0.0 (0.0-0.2) X10*3/uL Abs Immat Gran (auto) 0.01 (0.00-0.03) X10*3/uL Absolute Neuts (auto) 4.5 (2.0-8.3) x10*3/uL Absolute Nucleated RBC 0.000 (0.0-0.012) X10*3/uL Nucleated RBC % (auto) 0.0 (0.0-0.2) /100WBC Sodium 142 (135-145) mmol/L Potassium 3.9 (3.3-5.1) mmol/L Chloride 107 (96-108) mmol/L Carbon Dioxide 26 (22-29) mmol/L Anion Gap 13 (12-20) BUN 13 (9-16) mg/dL Creatinine 0.97 (0.5-1.4) mg/dL Estim Creat Clear Calc 76.0 Estimated GFR > 60 Random Glucose 113 (60-115) mg/dL Calcium 9.4 D (8.4-10.2) mg/dL Total Bilirubin 0.1 (0.0-1.0) mg/dL AST 34 H (5-31) U/L ALT 27 (0-31) U/L Alkaline Phosphatase 91 (39-117) U/L Total Protein 7.1 (6.5-8.0) g/dL Albumin 4.0 (3.5-5.0) g/dL Beta HCG, Quant < 2 mIU/mL Urine Color Yellow Urine Appearance Cloudy Urine pH 5.5 (5.0-9.0) Ur Specific [place] 1.025 (1.005-1.025) Urine Protein 30 (1+) H (Neg-Trace) mg/dL Urine Glucose (UA) Negative (Negative) mg/dL Urine Ketones Negative (Negative) mg/dL Urine Blood Moderate (2+) H (Negative) Urine Nitrite Negative (Negative) Ur Leukocyte Esterase Moderate (2+) H (Negative) Urine RBC >20 H (0-2) /HPF Urine WBC >50 H (0-5) /HPF Ur Squamous Epith Cells 3-5 (0-2) /HPF Urine Bacteria 3+ (None Seen) Hyaline Casts 0-2 (0-2) /LPF Independent Interpretation I performed an independent interpretation of an: CT Scan Interpretation: My interpretation is in agreement with the radiologist's impression of this imaging study. - EXAMINATION: CT ABDOMEN AND PELVIS WITHOUT CONTRAST CLINICAL INFORMATION: Flank pain. Right side. COMPARISON: CT abdomen pelvis dated 11/19/2023. TECHNIQUE: Multidetector volumetric imaging was performed from the superior aspect of the liver through the pubic symphysis. Sagittal and coronal reformatted images were obtained on the technologist's workstation. This CT examination was performed using dose optimization techniques as appropriate, variously including the following: *Automated exposure control *Adjustment of mA and/or kV according to patient size (this includes techniques or standardized protocols for targeted exams where dose is matched to indication/reason for exam; i.e. extremities or head) *Use of iterative reconstruction technique DLP: 752 mGy-cm FINDINGS: LUNG BASES: The visualized lung bases are unremarkable. LIVER, GALLBLADDER, AND BILIARY TREE: The liver is normal in size, shape, and attenuation. No focal hepatic lesion or biliary ductal dilatation is present. The gallbladder is unremarkable with no evidence of radiopaque gallstones, gallbladder wall thickening, or obvious pericholecystic inflammatory changes. PANCREAS: Unremarkable. SPLEEN: Unremarkable. ADRENAL GLANDS: Unremarkable. KIDNEYS AND URETERS: The kidneys are normal in size, shape, and attenuation. No hydronephrosis, hydroureter, or calculi seen. No perinephric stranding. There is a stable 4.8 cm right renal cyst and a stable 0.9 cm left renal cyst. No further imaging follow-up is required. BLADDER: Unremarkable. GASTROINTESTINAL TRACT: The small bowel and colon are normal in caliber. There is no pericolonic inflammatory stranding. There is mild sigmoid colon diverticulosis. The appendix is normal in appearance. ABDOMINAL WALL: No significant hernia is appreciated. LYMPH NODES: No abdominal or pelvic lymphadenopathy. VASCULAR: No abdominal aortic aneurysm. PELVIC VISCERA: The uterus is normal in appearance. There is no adnexal mass. OSSEOUS STRUCTURES: Unremarkable. CT/CT abdomen pelvis wo IV con IMPRESSION: No acute intra-abdominal/intrapelvic abnormality. Mild sigmoid colon diverticulosis. Fleischner guidelines were followed. Dictated By: Ravi Lynch Jr, DO Signed By: Electronically signed by Ravi Lynch Jr, DO 01/11/24 3208 Radiology Impression Discussion of test interpretation with radiology: I have reviewed the radiologist's reading. Prescription Management I considered prescription management with: Antibiotic (patient prescribed an antibiotic for her UTI) Discharge Plan Discharge Clinical Impression: Urinary tract infection Patient Disposition: Home, Self-Care Instructions: Urinary Tract Infection in Women (DC) Additional Instructions: Follow up with your primary care provider. Return to the emergency department immediately if your symptoms worsen or if you develop any dizziness, shortness of breath, difficulty breathing, chest pain, blurry vision, loss of vision, nausea, vomiting, abdominal pain, fever, chills, back pain, or any other complaints. Prescriptions: New cefuroxime axetil 250 mg tablet 250 mg PO BID 7 Days Qty: 14 0RF No Action docusate sodium [Stool Softener] 100 mg capsule 100 mg PO BID Qty: 180 0RF simethicone 180 mg capsule 180 mg PO BID PRN (Reason: abdominal distention) Qty: 180 2RF polyethylene glycol 3350 [Miralax] 17 gram powder in packet 17 g PO DAILY Qty: 100 3RF oxycodone 5 mg tablet 5 mg PO Q8H PRN (Reason: pain) Qty: 7 0RF Rx Instructions: Partial Fill upon patient request. levofloxacin 500 mg tablet 500 mg PO Q24H Qty: 7 0RF ondansetron 4 mg tablet,disintegrating 4 mg PO Q8H PRN (Reason: nausea and vomiting) Qty: 20 0RF fluconazole 150 mg tablet 150 mg PO Q3D Qty: 2 0RF oxycodone 10 mg tablet 10 mg PO Q8H PRN (Reason: pain) Qty: 12 0RF Rx Instructions: Partial Fill upon patient request. hydromorphone [Dilaudid] 2 mg tablet 2 mg PO Q4-6H PRN (Reason: pain) Qty: 10 0RF Rx Instructions: Patient may request partial fill; Partial Fill upon patient request. loratadine [Claritin] 10 mg tablet 10 mg PO DAILY Qty: 30 0RF amoxicillin-pot clavulanate 875-125 mg tablet 1 tab PO BID Qty: 14 0RF tramadol 50 mg tablet 50 mg PO Q6H PRN (Reason: severe pain (scale score 7-10)) Qty: 12 0RF benzonatate 200 mg capsule 200 mg PO TID PRN (Reason: cough) 5 Days Qty: 15 0RF Probiotic 3 billion cell capsule 3,000 mmu cells PO DAILY Qty: 30 5RF Rx Instructions: administer with a meal hydrocortisone [Proctosol HC] 2.5 % cream with perineal applicator 1 appl HI BID-QID PRN (Reason: hemorrhoids) Qty: 30 2RF pantoprazole 40 mg tablet,delayed release (DR/EC) 40 mg PO DAILY Qty: 90 2RF Rx Instructions: take one tablet half an hour before breakfast ondansetron 4 mg tablet,disintegrating 4 mg PO Q6-8H PRN (Reason: nausea and vomiting) Qty: 14 0RF bisacodyl [Dulcolax (bisacodyl)] 5 mg tablet,delayed release (DR/EC) 10 mg PO BEDTIME Qty: 180 4RF Referrals: Christelle Rondon MD [Primary Care Provider] - Stand Alone Forms: Work/School Release Interventions: ED Discharge Assessment Last Done: 01/11/24 22:09 Discharge Date/Time: 01/11/24 22:10 Print Language: Indian
[2024-01-11 17:31] VITALS: BP 115/69; PULSE 80; RESP 16; TEMP 36.8; O2SAT 95; BMI 42.1
[2024-01-11 18:12] LABS: MANUAL DIFF FLAG NO
[2024-01-11 18:24] LABS: Appearance Urine Cloudy; Color Urine Yellow; Glucose Urine UA Negative (Negative); Leukocyte Esterase Urine Moderate (2+) (Negative); Nitrite Urine Negative (Negative); PH 5.5 (5.0-9.0); Specific Gravity - Urine 1.025 (1.005-1.025); UMIC TRIGGER UACC YES; Urine Blood Moderate (2+) (Negative); Urine Ketones Negative (Negative); Urine Protein 30 (1+) mg/dL (Neg-Trace)
[2024-01-11 18:34] LABS: Basophils Percent Auto 0.2 % (0-2); Eosinophils Absolute Auto 0.2 X10*3/uL (0.0-0.4); Hematocrit 38.8 % (37.0-47.0); Hemoglobin 12.8 g/dl (12.0-16.0); Imm Gran Abs Auto 0.01 X10*3/uL (0.00-0.03); Imm Gran Pct Auto 0.1 % (0.0-0.4); Lymphocytes Absolute Auto 3.3 X10*3/uL (1.2-4.9); Lymphocytes Percent Auto 36.8 % (20-40); Mean Corpuscular Hemoglobin 31.3 pg (27.0-33.0); Mean Corpuscular Volume 94.9 fL (80.0-98.0); Mean Platelet Volume 12.7 fL (9.4-12.3); Monocytes Absolute Auto 0.9 X10*3/uL (0.1-1.2); Monocytes Percent Auto 9.6 % (2-11); Neutrophils Absolute Auto 4.5 x10*3/uL (2.0-8.3); Neutrophils Percent Auto 51.3 % (45-73); Platelet Count 164 X10*3/uL (160-400); Red Blood Count 4.09 X10*6/uL (4.20-5.50); Red Cell Distribution Width 11.9 % (11.0-16.0); White Blood Count 8.9 X10*3/uL (4.8-10.8)
[2024-01-11 18:38] LABS: Bacteria Urine 3+ (None Seen); Hyaline Casts Urine 0-2 /LPF (0-2); RBC Urine >20 /HPF (0-2); UACC Culture Trigger YES; WBC Urine >50 /HPF (0-5)
[2024-01-11 18:41] LABS: Alanine Aminotransferase 27 U/L (0-31); Alkaline Phosphatase 91 U/L (39-117); Anion Gap 13 (12-20); Aspartate Amino Transferase 34 U/L (5-31); Bilirubin Total 0.1 mg/dL (0.0-1.0); Blood Urea Nitrogen 13 mg/dL (9-16); Calcium 9.4 mg/dL (8.4-10.2); Carbon Dioxide 26 mmol/L (22-29); Chloride 107 mmol/L (96-108); Estimated Glomerular Filt Rate > 60; Glucose Random 113 mg/dL (60-115); HCG Quantitative < 2 mIU/mL; Potassium 3.9 mmol/L (3.3-5.1); Sodium 142 mmol/L (135-145); Total Protein 7.1 g/dL (6.5-8.0)
[2024-01-11 20:20] VITALS: BP 102/61; PULSE 84; RESP 18; TEMP 36.8; O2SAT 97
[2024-01-11] MEDS: cefuroxime axetiL 250 MG TABLET PO (21:41)
[2024-01-11] MEDS: Ketorolac Tromethamine 15 MG/ML VIAL IM (22:07)
[2024-01-11 22:09] VITALS: BP 102/61; PULSE 84; RESP 18; TEMP 36.8; O2SAT 97
== END 2024-01-11 22:10 | disposition home or self-care (01) ==
PROVIDERS: Registered Nurse Emergency; Emergency Provider Emergency Medicine Emergency Medical Services; PCP Internal Medicine
DX: N39.0 Urinary tract infection, site not specified (principal)
CPT/HCPCS: 36415; 74176; 80053; 81001; 84702; 85025; 87086; 87088; 87186; 96372; 99283; 99284; J1885

== ENCOUNTER 2024-04-28 16:00 | Outpatient (REF) | payer MEDICAID, SELFPAY | END 2024-04-28 16:01 | disposition home or self-care (01) | LOC: HO.HHCLNP 16:00 | PROVIDERS: Visit Provider Family Medicine | DX: R32 Unspecified urinary incontinence (principal) | CPT/HCPCS: 87086 ==

== ENCOUNTER 2024-05-25 14:07 | Emergency (ER) | payer MEDICAID, SELFPAY ==
--- NOTE | ~2024-05-25 | CT_ITS ---
EXAMINATION: CT ABDOMEN AND PELVIS WITH CONTRAST CLINICAL INFORMATION: Left lower quadrant pain with history of diverticulitis COMPARISON: CT abdomen and pelvis 01/11/2024 TECHNIQUE: Multidetector volumetric images were obtained from the superior aspect of the liver through the pubic symphysis following administration 85 mL of Omnipaque 350 intravenous contrast. Sagittal and coronal reformatted images were obtained on the technologist's workstation. Oral contrast: No This CT examination was performed using dose optimization techniques as appropriate, variously including the following: *Automated exposure control *Adjustment of mA and/or kV according to patient size (this includes techniques or standardized protocols for targeted exams where dose is matched to indication/reason for exam; i.e. extremities or head) *Use of iterative reconstruction technique DLP: 939 mGy-cm FINDINGS: LUNG BASES: The visualized lung bases are unremarkable. There is an unchanged 3 mm left lower lobe subpleural nodule (4:83 compare prior 3:66). LIVER, GALLBLADDER, AND BILIARY TREE: The liver is mildly enlarged at 18.6 cm in cephalocaudad dimension with normal shape. There is probable decreased attenuation suggesting hepatic steatosis. No focal hepatic lesion or biliary ductal dilatation is present. The gallbladder is unremarkable with no evidence of radiopaque gallstones, gallbladder wall thickening, or obvious pericholecystic inflammatory changes. PANCREAS: Unremarkable. SPLEEN: Unremarkable. ADRENAL GLANDS: Unremarkable. KIDNEYS AND URETERS: The kidneys are normal in size, shape, and attenuation. No hydronephrosis, hydroureter, or calculi seen. Bilateral benign Bosniak class I renal cysts are noted, the largest measuring 6 cm on the right which require no additional imaging or follow-up. No solid renal masses are seen. No perinephric stranding. BLADDER: Unremarkable. GASTROINTESTINAL TRACT: At the time of the prior study, sigmoid diverticulosis was present without diverticulitis. There is one large diverticulum arising from the mid sigmoid at that time that contained an air (2:54). On the current study, this contains only fluid but may have a calcification at its base possibly causing obstruction (7:55-60). Minimal inflammatory change, if any, is seen around this. This is at a site of previously seen marked colonic diverticulitis (for example 02/13/2023 3:59) and I do not think that this is a significant acute finding. The small and large bowel are otherwise unremarkable. The appendix is unremarkable. ABDOMINAL WALL: No significant hernia is appreciated. LYMPH NODES: Normal. VASCULAR: Unremarkable. PELVIC VISCERA: Retroflexed uterus is unremarkable. No abnormal adnexal mass is not seen. No free intraperitoneal fluid is present. OSSEOUS STRUCTURES: Unremarkable. CT/CT abdomen pelvis w IV con IMPRESSION: 1. Sigmoid diverticulosis without evidence of acute diverticulitis. Prominent fluid-filled diverticulum without surrounding inflammatory change as described above. 2. Incidental note made of an unchanged 3 mm left lower lobe pulmonary nodule, mildly enlarged fatty liver, benign Bosniak class I renal cysts which need no additional imaging or follow-up, and other findings described above. Fleischner guidelines were followed. Electronically signed by: Fabricio Raman MD 05/25/2024 07:24 PM EDT
[2024-05-25 14:18] VITALS: BP 140/90; PULSE 90; O2SAT 94
[2024-05-25 14:21] VITALS: BP 129/72; PULSE 74; RESP 20; TEMP 36.6; O2SAT 97; BMI 45.7
--- NOTE | 2024-05-25 14:21 | ED_ITS ---
HPI - Abdominal Pain General Chief Complaint: Abdominal Pain Stated Complaint: ABD PAIN Time Seen by Provider: 05/25/24 16:45 Related Data Previous Rx's ?Medication ?Instructions ?Recorded lactobacillus combination no.4 3 3,000 mmu cells PO DAILY #30 caps 10/20/22 billion cell capsule (Probiotic) oxycodone 5 mg tablet 5 mg PO Q8H PRN pain #7 tabs 02/13/23 hydromorphone 2 mg tablet 2 mg PO Q4-6H PRN pain #10 tabs 02/23/23 (Dilaudid) loratadine 10 mg tablet (Claritin) 10 mg PO DAILY #30 tabs 03/28/23 bisacodyl 5 mg tablet,delayed 10 mg (2 x 5 mg) PO BEDTIME #180 06/25/23 release (Dulcolax (bisacodyl)) tabs hydrocortisone 2.5 % topical cream 1 appl MO BID-QID PRN hemorrhoids 06/25/23 with perineal applicator #30 grams (Proctosol HC) ondansetron 4 mg disintegrating 4 mg PO Q6-8H PRN nausea and 06/25/23 tablet vomiting #14 tabs pantoprazole 40 mg tablet,delayed 40 mg PO DAILY #90 tabs 06/25/23 release amoxicillin 875 mg-potassium 1 tab PO BID #14 tabs 11/04/23 clavulanate 125 mg tablet tramadol 50 mg tablet 50 mg PO Q6H PRN severe pain 11/04/23 (scale score 7-10) #12 tabs fluconazole 150 mg tablet 150 mg PO Q3D 2 doses #2 tabs 11/19/23 levofloxacin 500 mg tablet 500 mg PO Q24H #7 tabs 11/19/23 ondansetron 4 mg disintegrating 4 mg PO Q8H PRN nausea and 11/19/23 tablet vomiting #20 tabs oxycodone 10 mg tablet 10 mg PO Q8H PRN pain #12 tabs 11/19/23 benzonatate 200 mg capsule 200 mg PO TID PRN cough 5 days #15 12/14/23 caps docusate sodium 100 mg capsule 100 mg PO BID #180 caps 12/26/23 (Stool Softener) simethicone 180 mg capsule 180 mg PO BID PRN abdominal 12/26/23 distention #180 caps polyethylene glycol 3350 17 gram 17 g PO DAILY #100 ea 01/10/24 oral powder packet (Miralax) cefuroxime axetil 250 mg tablet 250 mg PO BID 7 days #14 tabs 01/11/24 Allergies Allergy/AdvReac Type Severity Reaction Status Date / Time No Known Allergies [NKA] Allergy Verified 05/25/24 14:22 FORMERLY [facility], [facility] Past Medical History Medical History Hx of sigmoidoscopy Post-menopause Diverticulosis Diverticulitis Family history of coronary artery bypass graft Smoking Unstable angina pectoris Chronic idiopathic constipation Obesity (BMI 30-39.9) Cigarette smoker Screening for colon cancer Hepatic steatosis Surgical History H/O colonoscopy Morbid obesity Hx of tonsillectomy Family History Family History Brother Cancer Father Diabetes Mother Diabetes HTN (hypertension) Heart problem Family/Other Diabetes Social History Social History Household Members: Children Housing: House Do you presently have visiting nurse or other home services: No Alcohol intake: never Patient Tobacco Use Status: Never used Tobacco Cigarette Packs Per Day: 0.5 Cigarettes Per Day: 10.0 Second Hand Smoke Exposure: No Advance Directives: No Advance Directives Information Provided: Yes Physical Exam ED Vital Signs: Vital Signs - 24 hr 05/25/24 14:21 05/25/24 17:15 Temperature 98 F 98.5 F Pulse Rate 74 61 Respiratory Rate 20 18 Blood Pressure 129/72 123/73 Pulse Oximetry 97 98 Oxygen Delivery Method Room Air Room Air BMI result Body Mass Index 45.7 Course Course Course Narrative: This is an RME performed by Dean Saldana CNP: Additional HPI, ROS, PE not included below will be deferred to primary provider. Patient is a 53-year-old female who presents emergency department for evaluation of abdominal pain for 2 days. Reports associated nausea vomiting and constipation. Associated chills but no fever. Reports a history of diverticulitis with similar presentation, however she expresses concern for alternative cause as she also has Associated rhinorrhea and body aches. Plan: Labs, urinalysis, viral studies Medical Decision Making Lab Data 05/25/24 14:59 05/25/24 14:59 Labs: Lab Results 05/25/24 Range/Units 14:59 WBC 7.5 (4.8-10.8) X10*3/uL RBC 4.34 (4.20-5.50) X10*6/uL Hgb 13.4 (12.0-16.0) g/dl Hct 40.9 (37.0-47.0) % MCV 94.2 (80.0-98.0) fL MCH 30.9 (27.0-33.0) pg MCHC 32.8 (31.0-35.0) g/dl RDW 12.0 (11.0-16.0) % Plt Count 150 L (160-400) X10*3/uL MPV 12.9 H (9.4-12.3) fL Immature Gran % (Auto) 0.1 (0.0-0.4) % Neut % (Auto) 59.4 (45-73) % Lymph % (Auto) 29.3 (20-40) % [place] % (Auto) 9.4 (2-11) % Eos % (Auto) 1.5 (0-4) % Baso % (Auto) 0.3 (0-2) % Lymph # (Auto) 2.2 (1.2-4.9) X10*3/uL [place] # (Auto) 0.7 (0.1-1.2) X10*3/uL Eos # (Auto) 0.1 (0.0-0.4) X10*3/uL Baso # (Auto) 0.0 (0.0-0.2) X10*3/uL Abs Immat Gran (auto) 0.01 (0.00-0.03) X10*3/uL Absolute Neuts (auto) 4.5 (2.0-8.3) x10*3/uL Absolute Nucleated RBC 0.000 (0.0-0.012) X10*3/uL Nucleated RBC % (auto) 0.0 (0.0-0.2) /100WBC Sodium 139 (135-145) mmol/L Potassium 3.7 (3.3-5.1) mmol/L Chloride 106 (96-108) mmol/L Carbon Dioxide 25 (22-29) mmol/L Anion Gap 12 (12-20) BUN 12 (9-16) mg/dL Creatinine 0.93 (0.5-1.4) mg/dL Estim Creat Clear Calc 83.2 Estimated GFR > 60 Random Glucose 126 H (60-115) mg/dL Calcium 9.3 (8.4-10.2) mg/dL Magnesium 2.0 (1.6-2.6) mg/dL Total Bilirubin 0.3 (0.0-1.0) mg/dL AST 54 H (5-31) U/L ALT 50 H (0-31) U/L Alkaline Phosphatase 116 (39-117) U/L Total Protein 7.3 (6.5-8.0) g/dL Albumin 4.2 (3.5-5.0) g/dL Lipase 42 (8-78) U/L Urine Color Yellow Urine Appearance Clear Urine pH 6.5 (5.0-9.0) Ur Specific [place] 1.025 (1.005-1.025) Urine Protein Negative (Neg-Trace) mg/dL Urine Glucose (UA) Negative (Negative) mg/dL Urine Ketones Negative (Negative) mg/dL Urine Blood Trace H (Negative) Urine Nitrite Negative (Negative) Ur Leukocyte Esterase Trace H (Negative) Urine RBC 3-5 H (0-2) /HPF Urine WBC 0-5 (0-5) /HPF Ur Squamous Epith Cells 0-2 (0-2) /HPF Urine Bacteria None Seen (None Seen) Hyaline Casts 0-2 (0-2) /LPF Influenza Type A (PCR) NEGATIVE (Negative) Influenza Type B (PCR) NEGATIVE (Negative) RSV RNA Qual (PCR) NEGATIVE (Negative) SARS-CoV-2 RNA (RT-PCR) NEGATIVE (Negative) Discharge Plan Discharge Prescriptions: No Action docusate sodium [Stool Softener] 100 mg capsule 100 mg PO BID Qty: 180 0RF simethicone 180 mg capsule 180 mg PO BID PRN (Reason: abdominal distention) Qty: 180 2RF polyethylene glycol 3350 [Miralax] 17 gram powder in packet 17 g PO DAILY Qty: 100 3RF oxycodone 5 mg tablet 5 mg PO Q8H PRN (Reason: pain) Qty: 7 0RF Rx Instructions: Partial Fill upon patient request. levofloxacin 500 mg tablet 500 mg PO Q24H Qty: 7 0RF ondansetron 4 mg tablet,disintegrating 4 mg PO Q8H PRN (Reason: nausea and vomiting) Qty: 20 0RF fluconazole 150 mg tablet 150 mg PO Q3D Qty: 2 0RF oxycodone 10 mg tablet 10 mg PO Q8H PRN (Reason: pain) Qty: 12 0RF Rx Instructions: Partial Fill upon patient request. cefuroxime axetil 250 mg tablet 250 mg PO BID 7 Days Qty: 14 0RF hydromorphone [Dilaudid] 2 mg tablet 2 mg PO Q4-6H PRN (Reason: pain) Qty: 10 0RF Rx Instructions: Patient may request partial fill; Partial Fill upon patient request. loratadine [Claritin] 10 mg tablet 10 mg PO DAILY Qty: 30 0RF amoxicillin-pot clavulanate 875-125 mg tablet 1 tab PO BID Qty: 14 0RF tramadol 50 mg tablet 50 mg PO Q6H PRN (Reason: severe pain (scale score 7-10)) Qty: 12 0RF benzonatate 200 mg capsule 200 mg PO TID PRN (Reason: cough) 5 Days Qty: 15 0RF Probiotic 3 billion cell capsule 3,000 mmu cells PO DAILY Qty: 30 5RF Rx Instructions: administer with a meal hydrocortisone [Proctosol HC] 2.5 % cream with perineal applicator 1 appl MO BID-QID PRN (Reason: hemorrhoids) Qty: 30 2RF pantoprazole 40 mg tablet,delayed release (DR/EC) 40 mg PO DAILY Qty: 90 2RF Rx Instructions: take one tablet half an hour before breakfast ondansetron 4 mg tablet,disintegrating 4 mg PO Q6-8H PRN (Reason: nausea and vomiting) Qty: 14 0RF bisacodyl [Dulcolax (bisacodyl)] 5 mg tablet,delayed release (DR/EC) 10 mg PO BEDTIME Qty: 180 4RF Print Language: Scottish
[2024-05-25 15:04] LABS: MANUAL DIFF FLAG NO
[2024-05-25 15:06] LABS: Basophils Percent Auto 0.3 % (0-2); Eosinophils Absolute Auto 0.1 X10*3/uL (0.0-0.4); Eosinophils Percent Auto 1.5 % (0-4); Hematocrit 40.9 % (37.0-47.0); Hemoglobin 13.4 g/dl (12.0-16.0); Imm Gran Abs Auto 0.01 X10*3/uL (0.00-0.03); Imm Gran Pct Auto 0.1 % (0.0-0.4); Lymphocytes Absolute Auto 2.2 X10*3/uL (1.2-4.9); Lymphocytes Percent Auto 29.3 % (20-40); Mean Corpuscular HGB Conc 32.8 g/dl (31.0-35.0); Mean Corpuscular Hemoglobin 30.9 pg (27.0-33.0); Mean Corpuscular Volume 94.2 fL (80.0-98.0); Mean Platelet Volume 12.9 fL (9.4-12.3); Monocytes Absolute Auto 0.7 X10*3/uL (0.1-1.2); Monocytes Percent Auto 9.4 % (2-11); Neutrophils Absolute Auto 4.5 x10*3/uL (2.0-8.3); Neutrophils Percent Auto 59.4 % (45-73); Platelet Count 150 X10*3/uL (160-400); Red Blood Count 4.34 X10*6/uL (4.20-5.50); White Blood Count 7.5 X10*3/uL (4.8-10.8)
[2024-05-25 15:10] LABS: Appearance Urine Clear; Color Urine Yellow; Glucose Urine UA Negative (Negative); Leukocyte Esterase Urine Trace (Negative); Nitrite Urine Negative (Negative); PH 6.5 (5.0-9.0); Specific Gravity - Urine 1.025 (1.005-1.025); UMIC TRIGGER UACC YES; Urine Blood Trace (Negative); Urine Ketones Negative (Negative); Urine Protein Negative (Neg-Trace)
[2024-05-25 15:15] LABS: Bacteria Urine None Seen (None Seen); Hyaline Casts Urine 0-2 /LPF (0-2); Squamous Epithelial Cell Urine 0-2 /HPF (0-2); WBC Urine 0-5 /HPF (0-5)
[2024-05-25 15:21] LABS: Alanine Aminotransferase 50 U/L (0-31); Albumin Level 4.2 g/dL (3.5-5.0); Alkaline Phosphatase 116 U/L (39-117); Anion Gap 12 (12-20); Aspartate Amino Transferase 54 U/L (5-31); Bilirubin Total 0.3 mg/dL (0.0-1.0); Blood Urea Nitrogen 12 mg/dL (9-16); Calcium 9.3 mg/dL (8.4-10.2); Carbon Dioxide 25 mmol/L (22-29); Chloride 106 mmol/L (96-108); Creatinine Clr Calc Pharmacy 83.2; Estimated Glomerular Filt Rate > 60; Glucose Random 126 mg/dL (60-115); Lipase 42 U/L (8-78); Potassium 3.7 mmol/L (3.3-5.1); Sodium 139 mmol/L (135-145); Total Protein 7.3 g/dL (6.5-8.0)
[2024-05-25 16:03] LABS: Influenza A PCR NEGATIVE (Negative); Influenza B PCR NEGATIVE (Negative); Resp Syncy Virus RNA Qual PCR NEGATIVE (Negative); SARS COV2 PCR INHOUSE NEGATIVE (Negative)
--- NOTE | 2024-05-25 17:09 | ED.ABDPAIN ---
HPI - Abdominal Pain General Chief Complaint: Abdominal Pain Stated Complaint: ABD PAIN Time Seen by Provider: 05/25/24 16:45 Source: patient Mode of arrival: ambulatory Limitations: no limitations History of Present Illness ED Provider: Charmaine HPI narrative: 53 yo F PMHx diverticulitis, constipation, obesity presents with 8/10 LLQ cramping abdominal pain for the past two days. Patient states this is just like her previous episode of diverticulosis. Patient also complaining of nasal/sinus congestion, cough, and headache. States chills yesterday but denies fevers. Endorses nausea but no emesis. Is alternating between diarrhea and hard, small stools. Last bowel movement was here and partially relieved her pain. Denies chest pain, palpitations, SOB, dyspnea. Related Data Previous Rx's ?Medication ?Instructions ?Recorded lactobacillus combination no.4 3 3,000 mmu cells PO DAILY #30 caps 10/20/22 billion cell capsule (Probiotic) oxycodone 5 mg tablet 5 mg PO Q8H PRN pain #7 tabs 02/13/23 hydromorphone 2 mg tablet 2 mg PO Q4-6H PRN pain #10 tabs 02/23/23 (Dilaudid) loratadine 10 mg tablet (Claritin) 10 mg PO DAILY #30 tabs 03/28/23 bisacodyl 5 mg tablet,delayed 10 mg (2 x 5 mg) PO BEDTIME #180 06/25/23 release (Dulcolax (bisacodyl)) tabs hydrocortisone 2.5 % topical cream 1 appl [place] BID-QID PRN hemorrhoids 06/25/23 with perineal applicator #30 grams (Proctosol HC) ondansetron 4 mg disintegrating 4 mg PO Q6-8H PRN nausea and 06/25/23 tablet vomiting #14 tabs pantoprazole 40 mg tablet,delayed 40 mg PO DAILY #90 tabs 06/25/23 release amoxicillin 875 mg-potassium 1 tab PO BID #14 tabs 11/04/23 clavulanate 125 mg tablet tramadol 50 mg tablet 50 mg PO Q6H PRN severe pain 11/04/23 (scale score 7-10) #12 tabs fluconazole 150 mg tablet 150 mg PO Q3D 2 doses #2 tabs 11/19/23 levofloxacin 500 mg tablet 500 mg PO Q24H #7 tabs 11/19/23 ondansetron 4 mg disintegrating 4 mg PO Q8H PRN nausea and 11/19/23 tablet vomiting #20 tabs oxycodone 10 mg tablet 10 mg PO Q8H PRN pain #12 tabs 11/19/23 benzonatate 200 mg capsule 200 mg PO TID PRN cough 5 days #15 12/14/23 caps docusate sodium 100 mg capsule 100 mg PO BID #180 caps 12/26/23 (Stool Softener) simethicone 180 mg capsule 180 mg PO BID PRN abdominal 12/26/23 distention #180 caps polyethylene glycol 3350 17 gram 17 g PO DAILY #100 ea 01/10/24 oral powder packet (Miralax) cefuroxime axetil 250 mg tablet 250 mg PO BID 7 days #14 tabs 01/11/24 amoxicillin 875 mg-potassium 1 tab PO BID 7 days #14 tabs 05/25/24 clavulanate 125 mg tablet ketorolac 10 mg tablet 10 mg PO TID PRN pain 5 days #15 05/25/24 tabs ondansetron HCl 4 mg tablet 4 mg PO Q8H PRN nausea and 05/25/24 vomiting #14 tabs Allergies Allergy/AdvReac Type Severity Reaction Status Date / Time No Known Allergies [NKA] Allergy Verified 05/25/24 14:22 Review of Systems Review of Systems Yes all other systems are reviewed and are negative PMFSH Past Medical History Attestation statement: The following information was validated with the patient. Source: old records reviewed and nursing notes reviewed Medical History Hx of sigmoidoscopy Post-menopause Diverticulosis Diverticulitis Family history of coronary artery bypass graft Smoking Unstable angina pectoris Chronic idiopathic constipation Obesity (BMI 30-39.9) Cigarette smoker Screening for colon cancer Hepatic steatosis Surgical History H/O colonoscopy Morbid obesity Hx of tonsillectomy Family History Family History Brother Cancer Father Diabetes Mother Diabetes HTN (hypertension) Heart problem Family/Other Diabetes Social History Social History Household Members: Children Housing: House Do you presently have visiting nurse or other home services: No Alcohol intake: never Patient Tobacco Use Status: Never used Tobacco Cigarette Packs Per Day: 0.5 Cigarettes Per Day: 10.0 Second Hand Smoke Exposure: No Advance Directives: No Advance Directives Information Provided: Yes Physical Exam ED Vital Signs: Vital Signs - 24 hr 05/25/24 14:21 05/25/24 17:15 Temperature 98 F 98.5 F Pulse Rate 74 61 Respiratory Rate 20 18 Blood Pressure 129/72 123/73 Pulse Oximetry 97 98 Oxygen Delivery Method Room Air Room Air BMI result Body Mass Index 45.7 VSS Appearance: Alert. Oriented X3. No acute distress. ? No accessory muscle use Head: Normal external exam. Normocephalic. Atraumatic. ? Eyes: PERRLA. EOMI. Conjunctiva and sclera normal. Eyelids normal. ? ENT: Pharynx normal. Uvula midline. Moist mucous membranes. ? No trismus noted.? No drooling noted.? No muffled voice noted. Mild tenderness to percussion of the sinuses b/l Neck: ?Soft full range of motion, no JVD CVS: ?Heart regular rate and rhythm no murmurs and rubs Respiratory: ?Rhonchi cleared with cough Abdomen: ?Soft, diffusely tender. Tenderness worst in LLQ. (+) bowel sounds in all 4 quadrants. No CVA tenderness b/l Skin: Skin warm and dry.? Normal skin color.? Normal skin turgor. No rashes/lesions/lacerations noted. Extremities: No lower extremity edema. ? Extremities exhibit normal range of motion.? Extremities nontender. Neuro: Oriented X 3.? No motor deficit.? No sensory deficit. Course Course Course Narrative: This is an RME performed by Dean Saldana CNP: Additional HPI, ROS, PE not included below will be deferred to primary provider. Patient is a 53-year-old female who presents emergency department for evaluation of abdominal pain for 2 days. Reports associated nausea vomiting and constipation. Associated chills but no fever. Reports a history of diverticulitis with similar presentation, however she expresses concern for alternative cause as she also has Associated rhinorrhea and body aches. Plan: Labs, urinalysis, viral studies Reevaluation(s) Reevaluation #1: CBC unremarkable. Chemistry no acute findings eating intervention. UA without infection. Patient's CT abdomen pelvis with sigmoid diverticulosis without evidence of acute diverticulitis. Prominent fluid-filled diverticula without surrounding inflammatory changes due to patient's tenderness on exam and symptoms and history of diverticulitis will treat with Augmentin and Zofran for home. Will have her follow-up with GI. Incidental note of unchanged 3 mm left lower lobe pulmonary nodule, mildly enlarged fatty liver. Will inform patient of these findings. Patient feeling better. Will discharge her home with PCP and GI follow-up Educated patient on diagnosis and treatment plan, answered all question, patient verbalizes understanding. At this time patient will be discharged home, advised to return with new or worsening symptoms. Educated on worrisome signs and symptoms and when to return. At this time I feel comfortable discharge home. Time: 20:46 Reevaluation #2: Patient with mild anxiety, she wants us to start her on anxiety meds explain to her she should follow up with her PCP for proper management of this. Not suicidal or homicidal. No indication for psych consult at this time. Time: 20:56 Medical Decision Making Medical Decision Making MDM Narrative: 53 yo F PMHx diverticulitis, constipation, obesity presents with 8/10 LLQ cramping abdominal pain for the past two days. Patient states this is just like her previous episode of diverticulosis. Patient also complaining of nasal/sinus congestion, cough, and headache. PE: ENT: Moist, intact mucous membranes. TTP of the sinuses b/l Abd: ?Soft, diffusely tender. Tenderness worst in LLQ. (+) bowel sounds in all 4 quadrants. Pulm: Rhonchi that cleared with cough Hx and PE concerning for URI and diverticulitis. Less likely, acute abdomen, bowel perforation, obstruction, hepatitis, ovarian torsion, kidney stones, metabolic derangements. Plan: Labs, imaging, pain control Differential Diagnosis Differential Diagnoses: The differential diagnosis associated with the presentation includes (Hx and PE concerning for URI and diverticulitis. Less likely, acute abdomen, bowel perforation, obstruction, hepatitis, ovarian torsion, kidney stones, metabolic derangements.) Possible Lab Data 05/25/24 14:59 05/25/24 14:59 Labs: Lab Results 05/25/24 Range/Units 14:59 WBC 7.5 (4.8-10.8) X10*3/uL RBC 4.34 (4.20-5.50) X10*6/uL Hgb 13.4 (12.0-16.0) g/dl Hct 40.9 (37.0-47.0) % MCV 94.2 (80.0-98.0) fL MCH 30.9 (27.0-33.0) pg MCHC 32.8 (31.0-35.0) g/dl RDW 12.0 (11.0-16.0) % Plt Count 150 L (160-400) X10*3/uL MPV 12.9 H (9.4-12.3) fL Immature Gran % (Auto) 0.1 (0.0-0.4) % Neut % (Auto) 59.4 (45-73) % Lymph % (Auto) 29.3 (20-40) % [place] % (Auto) 9.4 (2-11) % Eos % (Auto) 1.5 (0-4) % Baso % (Auto) 0.3 (0-2) % Lymph # (Auto) 2.2 (1.2-4.9) X10*3/uL [place] # (Auto) 0.7 (0.1-1.2) X10*3/uL Eos # (Auto) 0.1 (0.0-0.4) X10*3/uL Baso # (Auto) 0.0 (0.0-0.2) X10*3/uL Abs Immat Gran (auto) 0.01 (0.00-0.03) X10*3/uL Absolute Neuts (auto) 4.5 (2.0-8.3) x10*3/uL Absolute Nucleated RBC 0.000 (0.0-0.012) X10*3/uL Nucleated RBC % (auto) 0.0 (0.0-0.2) /100WBC Sodium 139 (135-145) mmol/L Potassium 3.7 (3.3-5.1) mmol/L Chloride 106 (96-108) mmol/L Carbon Dioxide 25 (22-29) mmol/L Anion Gap 12 (12-20) BUN 12 (9-16) mg/dL Creatinine 0.93 (0.5-1.4) mg/dL Estim Creat Clear Calc 83.2 Estimated GFR > 60 Random Glucose 126 H (60-115) mg/dL Calcium 9.3 (8.4-10.2) mg/dL Magnesium 2.0 (1.6-2.6) mg/dL Total Bilirubin 0.3 (0.0-1.0) mg/dL AST 54 H (5-31) U/L ALT 50 H (0-31) U/L Alkaline Phosphatase 116 (39-117) U/L Total Protein 7.3 (6.5-8.0) g/dL Albumin 4.2 (3.5-5.0) g/dL Lipase 42 (8-78) U/L Urine Color Yellow Urine Appearance Clear Urine pH 6.5 (5.0-9.0) Ur Specific [place] 1.025 (1.005-1.025) Urine Protein Negative (Neg-Trace) mg/dL Urine Glucose (UA) Negative (Negative) mg/dL Urine Ketones Negative (Negative) mg/dL Urine Blood Trace H (Negative) Urine Nitrite Negative (Negative) Ur Leukocyte Esterase Trace H (Negative) Urine RBC 3-5 H (0-2) /HPF Urine WBC 0-5 (0-5) /HPF Ur Squamous Epith Cells 0-2 (0-2) /HPF Urine Bacteria None Seen (None Seen) Hyaline Casts 0-2 (0-2) /LPF Influenza Type A (PCR) NEGATIVE (Negative) Influenza Type B (PCR) NEGATIVE (Negative) RSV RNA Qual (PCR) NEGATIVE (Negative) SARS-CoV-2 RNA (RT-PCR) NEGATIVE (Negative) Medications Administered Discontinued Medications Generic Name Dose Route Start Last Admin Trade Name Freq PRN Reason Stop Dose Admin Sodium Chloride 1,000 mls @ 999 mls/hr 05/25/24 17:15 05/25/24 19:06 Ns IV 05/25/24 18:15 Infused .Q1H1M JANE Infusion Iohexol 100 ml 05/25/24 18:30 05/25/24 18:30 Iohexol 350 Mg/Ml 100 Ml Infus..Btl IV 05/25/24 18:31 85 ml ONCE ONE Administration Ketorolac Tromethamine 30 mg 05/25/24 17:10 05/25/24 17:52 Ketorolac Tromethamine 30 Mg/Ml Vial IVPUSH 05/25/24 17:11 30 mg ONCE ONE Administration Morphine Sulfate 4 mg 05/25/24 18:49 05/25/24 19:07 Morphine Sulfate 4 Mg/Ml Cartridge IVPUSH 05/25/24 18:50 4 mg ONCE ONE Administration Protocol Critical Care Time Critical Care Time Critical Care Time: Yes Total Critical Care Time: 35 Attestation: I attest to this time spent taking care of the patient, obtaining history, physical, reviewing labs, imaging, treatment of patients condition +/- specialist/hospitalist consult Discharge Plan Discharge Clinical Impression: Diverticulosis Patient Disposition: Home, Self-Care Instructions: Diverticulosis (ED), Diverticulitis Diet (ED) Additional Instructions: Take your medications as prescribed. If you were prescribed antibiotics today, it is important that you take your medication to their entirety, do not skip any doses, do not finish them early. Follow-up with your primary care provider this week. Return to the emergency department with new or worsening symptoms. Such as fevers, chills, chest pain, shortness of breath, nausea, vomiting, dizziness, headache, vision changes, lethargy, blood in stool or vomit In case of emergency call 911 Follow-up with GI CT/CT abdomen pelvis w IV con IMPRESSION: 1. Sigmoid diverticulosis without evidence of acute diverticulitis. Prominent fluid-filled diverticulum without surrounding inflammatory change as described above. 2. Incidental note made of an unchanged 3 mm left lower lobe pulmonary nodule, mildly enlarged fatty liver, benign Bosniak class I renal cysts which need no additional imaging or follow-up, and other findings described above. Prescriptions: New ketorolac 10 mg tablet 10 mg PO TID PRN (Reason: pain) 5 Days Qty: 15 0RF Rx Instructions: Tolerated IM or IV in department amoxicillin-pot clavulanate 875-125 mg tablet 1 tab PO BID 7 Days Qty: 14 0RF ondansetron HCl 4 mg tablet 4 mg PO Q8H PRN (Reason: nausea and vomiting) Qty: 14 0RF No Action docusate sodium [Stool Softener] 100 mg capsule 100 mg PO BID Qty: 180 0RF simethicone 180 mg capsule 180 mg PO BID PRN (Reason: abdominal distention) Qty: 180 2RF polyethylene glycol 3350 [Miralax] 17 gram powder in packet 17 g PO DAILY Qty: 100 3RF oxycodone 5 mg tablet 5 mg PO Q8H PRN (Reason: pain) Qty: 7 0RF Rx Instructions: Partial Fill upon patient request. levofloxacin 500 mg tablet 500 mg PO Q24H Qty: 7 0RF ondansetron 4 mg tablet,disintegrating 4 mg PO Q8H PRN (Reason: nausea and vomiting) Qty: 20 0RF fluconazole 150 mg tablet 150 mg PO Q3D Qty: 2 0RF oxycodone 10 mg tablet 10 mg PO Q8H PRN (Reason: pain) Qty: 12 0RF Rx Instructions: Partial Fill upon patient request. cefuroxime axetil 250 mg tablet 250 mg PO BID 7 Days Qty: 14 0RF hydromorphone [Dilaudid] 2 mg tablet 2 mg PO Q4-6H PRN (Reason: pain) Qty: 10 0RF Rx Instructions: Patient may request partial fill; Partial Fill upon patient request. loratadine [Claritin] 10 mg tablet 10 mg PO DAILY Qty: 30 0RF amoxicillin-pot clavulanate 875-125 mg tablet 1 tab PO BID Qty: 14 0RF tramadol 50 mg tablet 50 mg PO Q6H PRN (Reason: severe pain (scale score 7-10)) Qty: 12 0RF benzonatate 200 mg capsule 200 mg PO TID PRN (Reason: cough) 5 Days Qty: 15 0RF Probiotic 3 billion cell capsule 3,000 mmu cells PO DAILY Qty: 30 5RF Rx Instructions: administer with a meal hydrocortisone [Proctosol HC] 2.5 % cream with perineal applicator 1 appl [place] BID-QID PRN (Reason: hemorrhoids) Qty: 30 2RF pantoprazole 40 mg tablet,delayed release (DR/EC) 40 mg PO DAILY Qty: 90 2RF Rx Instructions: take one tablet half an hour before breakfast ondansetron 4 mg tablet,disintegrating 4 mg PO Q6-8H PRN (Reason: nausea and vomiting) Qty: 14 0RF bisacodyl [Dulcolax (bisacodyl)] 5 mg tablet,delayed release (DR/EC) 10 mg PO BEDTIME Qty: 180 4RF Referrals: [facility] [place] [facility] [Provider Group] - 1 day Christelle Rondon MD [Primary Care Provider] - 2 days Stand Alone Forms: Work/School Release Print Language: Frisian
[2024-05-25 17:15] VITALS: BP 123/73; PULSE 61; RESP 18; TEMP 36.9; O2SAT 98
[2024-05-25] MEDS: Ketorolac Tromethamine 30 MG/ML VIAL IVPUSH (17:52)
[2024-05-25] MEDS: 0.9 % Sodium Chloride 1,000 ML 999 ML IV (17:52)
[2024-05-25] MEDS: iohexoL 350 MG/ML 100 ML INFUS..BTL IV (18:30)
[2024-05-25] MEDS: Morphine Sulfate 4 MG/ML CARTRIDGE IVPUSH (19:07)
[2024-05-25 21:17] VITALS: BP 111/61; PULSE 77; RESP 16; TEMP 36.4; O2SAT 95
[2024-05-25 21:18] VITALS: BP 111/61; PULSE 77; RESP 16; TEMP 36.4; O2SAT 95
== END 2024-05-25 21:19 | disposition home or self-care (01) ==
PROVIDERS: Nurse Practitioner Family; Emergency Provider Emergency Medicine Emergency Medical Services; PCP Internal Medicine
DX: K57.30 Diverticulosis of large intestine without perforation or abscess without bleeding (principal); R10.32 Left lower quadrant pain; K59.00 Constipation, unspecified; R51.9 Headache, unspecified; R11.0 Nausea; Z79.899 Other long term (current) drug therapy; Z03.818 Encounter for observation for suspected exposure to other biological agents ruled out
CPT/HCPCS: 0241U; 74177; 80053; 81001; 83690; 83735; 85025; 96361; 96374; 96375; 99284; J1885; J2270; Q9967

== ENCOUNTER 2024-06-02 18:52 | Emergency (ER) | payer MEDICAID, SELFPAY ==
--- NOTE | ~2024-06-02 | CT_ITS ---
EXAMINATION: CT ABDOMEN AND PELVIS WITH CONTRAST CLINICAL INFORMATION: Abdominal pain. COMPARISON: May 25, 2024 TECHNIQUE: Multidetector volumetric images were obtained from the superior aspect of the liver through the pubic symphysis following administration 85 mL of Omnipaque 350 intravenous contrast. Sagittal and coronal reformatted images were obtained on the technologist's workstation. Oral contrast: No This CT examination was performed using dose optimization techniques as appropriate, variously including the following: *Automated exposure control *Adjustment of mA and/or kV according to patient size (this includes techniques or standardized protocols for targeted exams where dose is matched to indication/reason for exam; i.e. extremities or head) *Use of iterative reconstruction technique DLP: 805 mGy-cm FINDINGS: LUNG BASES: The visualized lung bases are unremarkable. LIVER, GALLBLADDER, AND BILIARY TREE: The liver is of diminished attenuation. No focal liver lesions are seen. There is no intrahepatic biliary duct dilatation. The gallbladder is unremarkable with no evidence of radiopaque gallstones, gallbladder wall thickening, or obvious pericholecystic inflammatory changes. PANCREAS: Unremarkable. SPLEEN: Unremarkable. ADRENAL GLANDS: Unremarkable. KIDNEYS AND URETERS: The kidneys are normal in size, shape, and attenuation. Bilateral renal cysts are again noted measuring up to 5.7 cm lower pole right kidney. There is no hydronephrosis. BLADDER: Unremarkable. GASTROINTESTINAL TRACT: There are diverticula of the descending and rectosigmoid colon. There is no definitive evidence for acute diverticulitis. The appendix is unremarkable. ABDOMINAL WALL: No significant hernia is appreciated. LYMPH NODES: Normal. VASCULAR: Unremarkable. PELVIC VISCERA: Unremarkable. OSSEOUS STRUCTURES: Unremarkable. CT/CT abdomen pelvis w IV con IMPRESSION: 1. Diverticulosis of the descending and rectosigmoid colon. There is no definitive evidence for acute diverticulitis. 2. Hepatic steatosis. 3. Bilateral renal cysts. Fleischner guidelines were followed. Electronically signed by: Santana Francis MD 06/03/2024 05:15 AM EDT
[2024-06-02 19:33] VITALS: BP 127/76; PULSE 64; RESP 16; TEMP 36.8; O2SAT 98; BMI 44.1
--- NOTE | 2024-06-02 19:34 | ED_ITS ---
HPI - General Adult General Chief complaint: Abdominal Pain Stated complaint: abd pain Time Seen by Provider: 06/02/24 23:40 Source: patient Mode of arrival: ambulatory Limitations: no limitations History of Present Illness ED Provider: Len PARK narrative: The patient is a 53-year-old female with a history of diverticulitis and also history of more generalized chronic abdominal pains. The patient was seen here 9 days ago for abdominal pain that she thought might be diverticulitis pain. She had a CT scan that did not show any definite findings of diverticulitis. No found a course of Augmentin. She says that despite the Augmentin she has continued to have abdominal pains and return to the emergency room arrived last night and had labs and a CT ordered. She spent the night in the emergency room. This morning the patient is feeling somewhat better. She is hungry. She says that the pain is somewhat intermittent. She feels it mostly across her lower abdomen. Her labs in her CT scan are unremarkable. There is no sign of definite diverticulitis on today's CT scan either. She is currently hungry this morning. Related Data Previous Rx's ?Medication ?Instructions ?Recorded lactobacillus combination no.4 3 3,000 mmu cells PO DAILY #30 caps 10/20/22 billion cell capsule (Probiotic) oxycodone 5 mg tablet 5 mg PO Q8H PRN pain #7 tabs 02/13/23 hydromorphone 2 mg tablet 2 mg PO Q4-6H PRN pain #10 tabs 02/23/23 (Dilaudid) loratadine 10 mg tablet (Claritin) 10 mg PO DAILY #30 tabs 03/28/23 bisacodyl 5 mg tablet,delayed 10 mg (2 x 5 mg) PO BEDTIME #180 06/25/23 release (Dulcolax (bisacodyl)) tabs hydrocortisone 2.5 % topical cream 1 appl [place] BID-QID PRN hemorrhoids 06/25/23 with perineal applicator #30 grams (Proctosol HC) ondansetron 4 mg disintegrating 4 mg PO Q6-8H PRN nausea and 06/25/23 tablet vomiting #14 tabs pantoprazole 40 mg tablet,delayed 40 mg PO DAILY #90 tabs 06/25/23 release amoxicillin 875 mg-potassium 1 tab PO BID #14 tabs 11/04/23 clavulanate 125 mg tablet tramadol 50 mg tablet 50 mg PO Q6H PRN severe pain 11/04/23 (scale score 7-10) #12 tabs fluconazole 150 mg tablet 150 mg PO Q3D 2 doses #2 tabs 11/19/23 levofloxacin 500 mg tablet 500 mg PO Q24H #7 tabs 11/19/23 ondansetron 4 mg disintegrating 4 mg PO Q8H PRN nausea and 11/19/23 tablet vomiting #20 tabs oxycodone 10 mg tablet 10 mg PO Q8H PRN pain #12 tabs 11/19/23 benzonatate 200 mg capsule 200 mg PO TID PRN cough 5 days #15 12/14/23 caps docusate sodium 100 mg capsule 100 mg PO BID #180 caps 12/26/23 (Stool Softener) simethicone 180 mg capsule 180 mg PO BID PRN abdominal 12/26/23 distention #180 caps polyethylene glycol 3350 17 gram 17 g PO DAILY #100 ea 01/10/24 oral powder packet (Miralax) cefuroxime axetil 250 mg tablet 250 mg PO BID 7 days #14 tabs 01/11/24 amoxicillin 875 mg-potassium 1 tab PO BID 7 days #14 tabs 05/25/24 clavulanate 125 mg tablet ketorolac 10 mg tablet 10 mg PO TID PRN pain 5 days #15 05/25/24 tabs ondansetron HCl 4 mg tablet 4 mg PO Q8H PRN nausea and 05/25/24 vomiting #14 tabs Allergies Allergy/AdvReac Type Severity Reaction Status Date / Time No Known Allergies [NKA] Allergy Verified 06/02/24 19:34 Review of Systems 2 Review of Systems: Yes all other systems are reviewed and are negative [facility] Past Medical History Medical History Hx of sigmoidoscopy Post-menopause Diverticulosis Diverticulitis Family history of coronary artery bypass graft Smoking Unstable angina pectoris Chronic idiopathic constipation Obesity (BMI 30-39.9) Cigarette smoker Screening for colon cancer Hepatic steatosis Surgical History H/O colonoscopy Morbid obesity Hx of tonsillectomy Family History Family History Brother Cancer Father Diabetes Mother Diabetes HTN (hypertension) Heart problem Family/Other Diabetes Social History Social History Household Members: Children Housing: House Do you presently have visiting nurse or other home services: No Alcohol intake: never Patient Tobacco Use Status: Never used Tobacco Cigarette Packs Per Day: 0.5 Cigarettes Per Day: 10.0 Smoked in Last 30 Days: No Second Hand Smoke Exposure: No Use of substances other than those prescribed or required for medical reasons: No Advance Directives: No Advance Directives Information Provided: No Do you have a plan to hurt others: No Plan Patient : No Physical Exam ED Vital Signs: Vital Signs - 24 hr 06/03/24 06:09 06/03/24 09:02 06/03/24 09:28 Temperature 97.8 F 98 F 98 F Pulse Rate 80 107 H 107 H Respiratory Rate 17 17 17 Blood Pressure 100/58 L 98/48 L 98/48 L Pulse Oximetry 97 97 97 Oxygen Delivery Method Room Air Room Air Room Air BMI result Body Mass Index 44.1 Const General: cooperative, healthy appearing, comfortable, no acute distress, well developed, alert, awake and Physically active HENMT Other: Face is symmetrical. Mucous membranes moist. Eyes Other: Pupils are round equal, conjunctivae clear Neck Other: Moving her neck easily Resp Effort & Inspection: normal respiratory effort Auscultation: clear to auscultation bilaterally Cardio Rate: regular rate Rhythm: regular rhythm Heart sounds: S1 normal heart sound present and S2 normal heart sound present GI Other: The patient has a protuberant abdomen. Some generalized tenderness but no focal tenderness or rebound. Skin Other: Skin is dry and unremarkable Neuro Other: The patient is awake and alert with a normal mental status. Cranial nerves are grossly intact. She moves her extremities normally and appropriately. Extrem Other: No calf swelling or tenderness Course Course Course Narrative: RME performed by Jen Mireles PA-C. Patient is a 53 year old assigned female at presenting to the emergency department with continued abdominal pain. Patient states that she has a history of divertulosis and diverticulitis. Patient states that she was seen on 05/25/2024 and was diagnosed with diverticulitis, treated, but pain never got better. Detailed physical exam and review of systems are deferred to the primary education professor. Labs ordered. Patient placed back in the waiting room pending room availability and results. Reevaluation(s) Reevaluation #1: I assumed care of this patient this morning. She has been in the emergency room overnight lab work that was unremarkable. She had a CT scan that shows diverticulosis colitis. Ultimately her workup is essentially negative for any acute process of significance. She is frustrated that she does not have a better understanding of why she keeps having these abdominal symptoms. She was given a dose of sucralfate as a trial but she did not get much relief from the sucralfate. I will therefore not prescribed this. She will be discharged to follow up with her visualization developer. Riccardo Harrington Time: 08:38 Medications Administered Discontinued Medications Generic Name Dose Route Start Last Admin Trade Name Freq PRN Reason Stop Dose Admin Famotidine 20 mg 06/02/24 23:56 06/03/24 00:25 Famotidine/Pf 20 Mg/2 Ml Vial IVPUSH 06/02/24 23:57 20 mg ONCE ONE Administration Sodium Chloride 1,000 mls @ 999 mls/hr 06/02/24 23:56 06/03/24 07:58 Ns IV 06/03/24 00:56 Infused .Q1H1M STA Infusion Iohexol 100 ml 06/03/24 01:30 06/03/24 01:31 Iohexol 350 Mg/Ml 100 Ml Infus..Btl IV 06/03/24 01:31 100 ml ONCE ONE Administration Ondansetron HCl 4 mg 06/02/24 23:56 06/03/24 00:23 Ondansetron Hcl 4 Mg/2 Ml Vial IVPUSH 06/02/24 23:57 4 mg ONCE ONE Administration Sucralfate 1 gm 06/03/24 07:52 06/03/24 08:19 Sucralfate Oral Suspension 1 Gm/10 Ml Oral.Susp PO 06/03/24 07:53 Not Given ONCE ONE Medical Decision Making Medical Decision Making [facility] Narrative: Patient 53 presents ED for generalized abdominal pain chills nausea vomiting diarrhea. Patient has history of known diverticulosis. Patient was seen here last week thumbs. Patient had labs drawn. Was sent for CT scan to rule out diverticulitis. We will do EKG 1 troponin. Sign out to Dr. Gregory. Differential Diagnosis Differential Diagnoses: The differential diagnosis associated with the presentation includes (colitis, UTI, panceatitis, SBO) Admission/Observation Consideration of admission/observation: Escalation of care including admission/observation considered Lab Data MDM Lab Attestation statement: I reviewed the patient's lab results. 06/02/24 19:44 06/02/24 19:44 Labs: Lab Results 06/02/24 06/03/24 Range/Units 19:44 01:10 WBC 6.4 (4.8-10.8) X10*3/uL RBC 4.37 (4.20-5.50) X10*6/uL Hgb 13.5 (12.0-16.0) g/dl Hct 41.2 (37.0-47.0) % MCV 94.3 (80.0-98.0) fL MCH 30.9 (27.0-33.0) pg MCHC 32.8 (31.0-35.0) g/dl RDW 12.0 (11.0-16.0) % Plt Count 182 (160-400) X10*3/uL MPV 12.8 H (9.4-12.3) fL Immature Gran % (Auto) 0.2 (0.0-0.4) % Neut % (Auto) 61.0 (45-73) % Lymph % (Auto) 33.0 (20-40) % Saunders % (Auto) 3.9 (2-11) % Eos % (Auto) 1.4 (0-4) % Baso % (Auto) 0.5 (0-2) % Lymph # (Auto) 2.1 (1.2-4.9) X10*3/uL Saunders # (Auto) 0.3 (0.1-1.2) X10*3/uL Eos # (Auto) 0.1 (0.0-0.4) X10*3/uL Baso # (Auto) 0.0 (0.0-0.2) X10*3/uL Abs Immat Gran (auto) 0.01 (0.00-0.03) X10*3/uL Absolute Neuts (auto) 3.9 (2.0-8.3) x10*3/uL Absolute Nucleated RBC 0.000 (0.0-0.012) X10*3/uL Nucleated RBC % (auto) 0.0 (0.0-0.2) /100WBC Sodium 143 (135-145) mmol/L Potassium 3.4 (3.3-5.1) mmol/L Chloride 108 (96-108) mmol/L Carbon Dioxide 26 (22-29) mmol/L Anion Gap 12 (12-20) BUN 11 (9-16) mg/dL Creatinine 0.95 (0.5-1.4) mg/dL Estim Creat Clear Calc 79.7 Estimated GFR > 60 Random Glucose 105 (60-115) mg/dL Calcium 10.0 D (8.4-10.2) mg/dL Magnesium 2.0 (1.6-2.6) mg/dL Total Bilirubin 0.2 (0.0-1.0) mg/dL AST 52 H (5-31) U/L ALT 48 H (0-31) U/L Alkaline Phosphatase 105 (39-117) U/L Troponin I High Sens < 2.7 (<3.5-17.0) ng/L Total Protein 8.0 (6.5-8.0) g/dL Albumin 4.5 (3.5-5.0) g/dL Beta HCG, Quant < 2 mIU/mL Urine Color Yellow Urine Appearance Clear Urine pH 5.5 (5.0-9.0) Ur Specific [place] 1.025 (1.005-1.025) Urine Protein Negative (Neg-Trace) mg/dL Urine Glucose (UA) Negative (Negative) mg/dL Urine Ketones Negative (Negative) mg/dL Urine Blood Negative (Negative) Urine Nitrite Negative (Negative) Ur Leukocyte Esterase Small (1+) H (Negative) Urine RBC 3-5 H (0-2) /HPF Urine WBC 6-10 H (0-5) /HPF Ur Squamous Epith Cells 6-10 (0-2) /HPF Urine Bacteria None Seen (None Seen) Hyaline Casts 0-2 (0-2) /LPF Influenza Type A (PCR) NEGATIVE (Negative) Influenza Type B (PCR) NEGATIVE (Negative) RSV RNA Qual (PCR) NEGATIVE (Negative) SARS-CoV-2 RNA (RT-PCR) NEGATIVE (Negative) Independent Interpretation I performed an independent interpretation of an: EKG (negative STEMi) and CT Scan Radiology Impression Discussion of test interpretation with radiology: I have reviewed the radiologist's reading. Independent Historian Clinical information obtained from an independent historian. History obtained from or confirmed by: Other (patient) Discharge Plan Discharge Clinical Impression: Abdominal pain Patient Disposition: Home, Self-Care Additional Instructions: Your CT scan does not show any sign of diverticulitis today. A additionally your blood testing is very reassuring as well. Please contact your visualization developer office today to set up a prompt follow up appointment for these ongoing pains. Also plan on following up with your regular doctor. Return to the emergency room if you feel significantly worse Prescriptions: No Action docusate sodium [Stool Softener] 100 mg capsule 100 mg PO BID Qty: 180 0RF simethicone 180 mg capsule 180 mg PO BID PRN (Reason: abdominal distention) Qty: 180 2RF polyethylene glycol 3350 [Miralax] 17 gram powder in packet 17 g PO DAILY Qty: 100 3RF oxycodone 5 mg tablet 5 mg PO Q8H PRN (Reason: pain) Qty: 7 0RF Rx Instructions: Partial Fill upon patient request. levofloxacin 500 mg tablet 500 mg PO Q24H Qty: 7 0RF ondansetron 4 mg tablet,disintegrating 4 mg PO Q8H PRN (Reason: nausea and vomiting) Qty: 20 0RF fluconazole 150 mg tablet 150 mg PO Q3D Qty: 2 0RF oxycodone 10 mg tablet 10 mg PO Q8H PRN (Reason: pain) Qty: 12 0RF Rx Instructions: Partial Fill upon patient request. cefuroxime axetil 250 mg tablet 250 mg PO BID 7 Days Qty: 14 0RF ketorolac 10 mg tablet 10 mg PO TID PRN (Reason: pain) 5 Days Qty: 15 0RF Rx Instructions: Tolerated IM or IV in department amoxicillin-pot clavulanate 875-125 mg tablet 1 tab PO BID 7 Days Qty: 14 0RF ondansetron HCl 4 mg tablet 4 mg PO Q8H PRN (Reason: nausea and vomiting) Qty: 14 0RF hydromorphone [Dilaudid] 2 mg tablet 2 mg PO Q4-6H PRN (Reason: pain) Qty: 10 0RF Rx Instructions: Patient may request partial fill; Partial Fill upon patient request. loratadine [Claritin] 10 mg tablet 10 mg PO DAILY Qty: 30 0RF amoxicillin-pot clavulanate 875-125 mg tablet 1 tab PO BID Qty: 14 0RF tramadol 50 mg tablet 50 mg PO Q6H PRN (Reason: severe pain (scale score 7-10)) Qty: 12 0RF benzonatate 200 mg capsule 200 mg PO TID PRN (Reason: cough) 5 Days Qty: 15 0RF Probiotic 3 billion cell capsule 3,000 mmu cells PO DAILY Qty: 30 5RF Rx Instructions: administer with a meal hydrocortisone [Proctosol HC] 2.5 % cream with perineal applicator 1 appl [place] BID-QID PRN (Reason: hemorrhoids) Qty: 30 2RF pantoprazole 40 mg tablet,delayed release (DR/EC) 40 mg PO DAILY Qty: 90 2RF Rx Instructions: take one tablet half an hour before breakfast ondansetron 4 mg tablet,disintegrating 4 mg PO Q6-8H PRN (Reason: nausea and vomiting) Qty: 14 0RF bisacodyl [Dulcolax (bisacodyl)] 5 mg tablet,delayed release (DR/EC) 10 mg PO BEDTIME Qty: 180 4RF Referrals: Christelle Rondon MD [Primary Care Provider] - (Abdominal pains) Milka Green FNP- [Nurse Practitioner] - (Abdominal pains, diverticulosis) Stand Alone Forms: Work/School Release Interventions: ED Discharge Assessment Last Done: 06/03/24 09:28 Discharge Date/Time: 06/03/24 09:29 Print Language: Czech
[2024-06-02 19:50] LABS: MANUAL DIFF FLAG NO
[2024-06-02 19:54] LABS: Basophils Percent Auto 0.5 % (0-2); Eosinophils Absolute Auto 0.1 X10*3/uL (0.0-0.4); Eosinophils Percent Auto 1.4 % (0-4); Hematocrit 41.2 % (37.0-47.0); Hemoglobin 13.5 g/dl (12.0-16.0); Imm Gran Abs Auto 0.01 X10*3/uL (0.00-0.03); Imm Gran Pct Auto 0.2 % (0.0-0.4); Lymphocytes Absolute Auto 2.1 X10*3/uL (1.2-4.9); Mean Corpuscular HGB Conc 32.8 g/dl (31.0-35.0); Mean Corpuscular Hemoglobin 30.9 pg (27.0-33.0); Mean Corpuscular Volume 94.3 fL (80.0-98.0); Mean Platelet Volume 12.8 fL (9.4-12.3); Monocytes Absolute Auto 0.3 X10*3/uL (0.1-1.2); Monocytes Percent Auto 3.9 % (2-11); Neutrophils Absolute Auto 3.9 x10*3/uL (2.0-8.3); Platelet Count 182 X10*3/uL (160-400); Red Blood Count 4.37 X10*6/uL (4.20-5.50); White Blood Count 6.4 X10*3/uL (4.8-10.8)
[2024-06-02 20:21] LABS: Alanine Aminotransferase 48 U/L (0-31); Albumin Level 4.5 g/dL (3.5-5.0); Alkaline Phosphatase 105 U/L (39-117); Anion Gap 12 (12-20); Aspartate Amino Transferase 52 U/L (5-31); Bilirubin Total 0.2 mg/dL (0.0-1.0); Blood Urea Nitrogen 11 mg/dL (9-16); Carbon Dioxide 26 mmol/L (22-29); Chloride 108 mmol/L (96-108); Creatinine Clr Calc Pharmacy 79.7; Estimated Glomerular Filt Rate > 60; Glucose Random 105 mg/dL (60-115); Potassium 3.4 mmol/L (3.3-5.1); Sodium 143 mmol/L (135-145)
[2024-06-02 20:48] LABS: Influenza A PCR NEGATIVE (Negative); Influenza B PCR NEGATIVE (Negative); Resp Syncy Virus RNA Qual PCR NEGATIVE (Negative); SARS COV2 PCR INHOUSE NEGATIVE (Negative)
--- NOTE | 2024-06-02 23:56 | ECG_ITS ---
Test Reason : ABD Blood Pressure : / mmHG Vent. Rate : 063 BPM Atrial Rate : 063 BPM P-R Int : 156 ms QRS Dur : 078 ms QT Int : 422 ms P-R-T Axes : 022 014 055 degrees QTc Int : 431 ms Normal sinus rhythm Normal ECG When compared with ECG of 12-JAN-2021 12:31, NE interval has increased Referred By: Rafael Hicks Electronically Signed By:JOSS PACHECO
[2024-06-03] MEDS: 0.9 % Sodium Chloride 1,000 ML 999 ML IV (00:21)
[2024-06-03] MEDS: ondansetron HCL 4 MG/2 ML VIAL IVPUSH (00:23)
[2024-06-03] MEDS: Famotidine/PF 20 MG/2 ML VIAL IVPUSH (00:25)
[2024-06-03 01:18] LABS: Appearance Urine Clear; Color Urine Yellow; Glucose Urine UA Negative (Negative); Leukocyte Esterase Urine Small (1+) (Negative); Nitrite Urine Negative (Negative); PH 5.5 (5.0-9.0); Specific Gravity - Urine 1.025 (1.005-1.025); UMIC TRIGGER UACC YES; Urine Blood Negative (Negative); Urine Ketones Negative (Negative); Urine Protein Negative (Neg-Trace)
[2024-06-03] MEDS: iohexoL 350 MG/ML 100 ML INFUS..BTL IV (01:31)
[2024-06-03 01:32] LABS: Bacteria Urine None Seen (None Seen); Hyaline Casts Urine 0-2 /LPF (0-2); UACC Culture Trigger YES
[2024-06-03 01:41] LABS: HCG Quantitative < 2 mIU/mL
[2024-06-03 02:07] LABS: Troponin-I High Sensitivity < 2.7 ng/L (<3.5-17.0)
[2024-06-03 06:09] VITALS: BP 100/58; PULSE 80; RESP 17; TEMP 36.6; O2SAT 97
--- NOTE | 2024-06-03 08:18 | PC.NURSE ---
c/o diffuse upper abd pain and lower back pain. states she doesn't wANT TO Take sucralfate n ED and will take Rx for same at home.
[2024-06-03 09:02] VITALS: BP 98/48; PULSE 107; RESP 17; TEMP 36.6; O2SAT 97
[2024-06-03 09:28] VITALS: BP 98/48; PULSE 107; RESP 17; TEMP 36.6; O2SAT 97
== END 2024-06-03 09:29 | disposition home or self-care (01) ==
PROVIDERS: Physician Assistant; Physician Assistant Medical; Emergency Provider Emergency Medicine; PCP Internal Medicine
DX: R10.9 Unspecified abdominal pain (principal); R11.2 Nausea with vomiting, unspecified; R19.7 Diarrhea, unspecified; Z79.899 Other long term (current) drug therapy; Z03.818 Encounter for observation for suspected exposure to other biological agents ruled out
CPT/HCPCS: 0241U; 74177; 80053; 81001; 83735; 84484; 84702; 85025; 87086; 93005; 96361; 96374; 96375; 99285; J2405; Q9967

== ENCOUNTER 2024-08-09 16:28 | Emergency (ER) | payer MEDICAID, SELFPAY ==
--- NOTE | ~2024-08-09 | XR_ITS ---
EXAMINATION: XR CHEST CLINICAL INFORMATION: cough COMPARISON: None available. TECHNIQUE: 2 views of the chest were obtained. FINDINGS: Developing right upper lobe opacity. No pleural effusion. No pneumothorax. The heart and mediastinal borders are normal. XR/XR chest 2V IMPRESSION: Developing right upper lobe opacity concerning for pneumonia. Electronically signed by: Lion Anderson MD 08/09/2024 05:01 PM EST
--- NOTE | 2024-08-09 16:30 | ECG_ITS ---
Test Reason : CP Blood Pressure : / mmHG Vent. Rate : 089 BPM Atrial Rate : 089 BPM P-R Int : 124 ms QRS Dur : 078 ms QT Int : 330 ms P-R-T Axes : 032 002 033 degrees QTc Int : 401 ms Normal sinus rhythm Nonspecific ST and T wave abnormality Borderline ECG When compared with ECG of 03-JUN-2024 00:51, slight Nonspecific ST and T wave abnormality lateral leads Referred By: Zoila Orozco Electronically Signed By:FARAZ ANTOINE
[2024-08-09 16:34] VITALS: BP 151/81; PULSE 95; RESP 20; TEMP 36.9; O2SAT 98; BMI 43.1
--- NOTE | 2024-08-09 16:39 | ED_ITS ---
HPI - General Adult General Chief complaint: Upper Respiratory Symptoms Stated complaint: chest pain/ alot of coughing Time Seen by Provider: 08/09/24 17:52 Source: patient, RN notes reviewed and old records reviewed Mode of arrival: ambulatory Limitations: no limitations History of Present Illness ED Provider: PARUL OROZCO PA-C HPI narrative: 54 year old female with pmhx significant for diverticulosis, diverticulitis, cigarette smoker presents to the ED today for evaluation of headache, cough, chest congestion, and myalgias x1 week. No known sick contacts. Denies fever, dizziness, vision changes, sore throat, sputum production, chest pain, N/V. Related Data Previous Rx's ?Medication ?Instructions ?Recorded lactobacillus combination no.4 3 3,000 mmu cells PO DAILY #30 caps 10/20/22 billion cell capsule (Probiotic) oxycodone 5 mg tablet 5 mg PO Q8H PRN pain #7 tabs 02/13/23 hydromorphone 2 mg tablet 2 mg PO Q4-6H PRN pain #10 tabs 02/23/23 (Dilaudid) loratadine 10 mg tablet (Claritin) 10 mg PO DAILY #30 tabs 03/28/23 bisacodyl 5 mg tablet,delayed 10 mg (2 x 5 mg) PO BEDTIME #180 06/25/23 release (Dulcolax (bisacodyl)) tabs hydrocortisone 2.5 % topical cream 1 appl GA BID-QID PRN hemorrhoids 06/25/23 with perineal applicator #30 grams (Proctosol HC) ondansetron 4 mg disintegrating 4 mg PO Q6-8H PRN nausea and 06/25/23 tablet vomiting #14 tabs pantoprazole 40 mg tablet,delayed 40 mg PO DAILY #90 tabs 06/25/23 release amoxicillin 875 mg-potassium 1 tab PO BID #14 tabs 11/04/23 clavulanate 125 mg tablet tramadol 50 mg tablet 50 mg PO Q6H PRN severe pain 11/04/23 (scale score 7-10) #12 tabs fluconazole 150 mg tablet 150 mg PO Q3D 2 doses #2 tabs 11/19/23 levofloxacin 500 mg tablet 500 mg PO Q24H #7 tabs 11/19/23 ondansetron 4 mg disintegrating 4 mg PO Q8H PRN nausea and 11/19/23 tablet vomiting #20 tabs oxycodone 10 mg tablet 10 mg PO Q8H PRN pain #12 tabs 11/19/23 benzonatate 200 mg capsule 200 mg PO TID PRN cough 5 days #15 12/14/23 caps docusate sodium 100 mg capsule 100 mg PO BID #180 caps 12/26/23 (Stool Softener) simethicone 180 mg capsule 180 mg PO BID PRN abdominal 12/26/23 distention #180 caps polyethylene glycol 3350 17 gram 17 g PO DAILY #100 ea 01/10/24 oral powder packet (Miralax) cefuroxime axetil 250 mg tablet 250 mg PO BID 7 days #14 tabs 01/11/24 amoxicillin 875 mg-potassium 1 tab PO BID 7 days #14 tabs 05/25/24 clavulanate 125 mg tablet ketorolac 10 mg tablet 10 mg PO TID PRN pain 5 days #15 05/25/24 tabs ondansetron HCl 4 mg tablet 4 mg PO Q8H PRN nausea and 05/25/24 vomiting #14 tabs azithromycin 250 mg tablet See Rx Instructions PO .COMPLEX #6 08/09/24 tabs benzonatate 100 mg capsule 100 mg PO BID PRN cough #14 caps 08/09/24 prednisone 20 mg tablet 40 mg (2 x 20 mg) PO DAILY 4 days 08/09/24 #8 tabs Allergies Allergy/AdvReac Type Severity Reaction Status Date / Time No Known Allergies [NKA] Allergy Verified 08/09/24 16:38 Review of Systems 2 Review of Systems: Yes all other systems are reviewed and are negative [facility] Past Medical History Attestation statement: The following information was validated with the patient. Source: old records reviewed and nursing notes reviewed Medical History Hx of sigmoidoscopy Post-menopause Diverticulosis Diverticulitis Family history of coronary artery bypass graft Smoking Unstable angina pectoris Chronic idiopathic constipation Obesity (BMI 30-39.9) Cigarette smoker Screening for colon cancer Hepatic steatosis Surgical History H/O colonoscopy Morbid obesity Hx of tonsillectomy Family History Family History Brother Cancer Father Diabetes Mother Diabetes HTN (hypertension) Heart problem Family/Other Diabetes Social History Social History Household Members: Children Housing: House Do you presently have visiting nurse or other home services: No Alcohol intake: never Patient Tobacco Use Status: Never used Tobacco Cigarette Packs Per Day: 0.5 Cigarettes Per Day: 10.0 Second Hand Smoke Exposure: No Advance Directives: No Advance Directives Information Provided: No Do you have a plan to hurt others: No Plan Physical Exam ED Vital Signs: Vital Signs - 24 hr 08/09/24 16:34 08/09/24 17:59 08/09/24 18:50 Temperature 98.5 F 97.8 F 97.8 F Pulse Rate 95 87 87 Respiratory Rate 20 16 16 Blood Pressure 151/81 H 118/79 118/79 Pulse Oximetry 98 97 97 Oxygen Delivery Method Room Air Room Air BMI result Body Mass Index 43.1 Vital signs stable, afebrile General: Well appearing, in no acute distress. Skin: Warm, dry, intact. No rashes or lesions. Head: Normocephalic, atraumatic. EENT: Hearing is intact b/l. Conjunctiva clear. PERRLA. EOM intact. Moist mucous membranes.?posterior oropharynx wnl. Neck: Supple without LAD Cardiac: Chest wall symmetric. RRR Lungs: Normal respiratory effort without accessory muscle use. bronchospastic cough. CTA bilaterally. No rales, rhonchi, or wheezes.? Abdomen: Soft, non-tender, non-distended. No rebound tenderness or guarding. Positive BS x4. no cvat b/l. Back: No midline spinous or paraspinal tenderness. No step off deformity. Ext: Upper and lower extremities atraumatic, without tenderness, deformity, swelling or erythema. Full ROM throughout. Neuro: AOx3. Normal speech. Ambulating with steady gait. Psych: Appropriate mood and affect. Responds appropriately to questions. Course Course Course Narrative: This is a Rapid Medical Examination (RME) performed by Priya Orozco PA-C in triage. Full HPI, ROS, assessment and treatment plan per primary provider in the Main ED. 54 yo female hx of diverticulosis, diverticulitis, cigarette smoker here for eval of headache, cough, chest congestion, chest pain (on coughing only), and bilateral kidney pain x1 week. endorses SOB at night. + bronchospastic cough, lungs clear Plan: labs, UA, viral swabs, CXR Reevaluation(s) Reevaluation #1: 0776 -- CBC without leukocytosis or left shift. No anemia. H&H stable. Chemistry without acute electrolyte abnormality requiring intervention. No KATIA. Liver function at baseline. Troponin undetectable. Urine without infection. Negative for COVID, flu, RSV. Chest x-ray shows opacity to right upper lobe concerning for early pneumonia. Will treat patient for community-acquired pneumonia. Will send prednisone, azithromycin and Tessalon Perles to pharmacy for treatment. Patient has remained stable throughout ED visit today. Discussed worrisome signs and symptoms and when to return to the ED. All questions answered at this time. Patient is agreeable with disposition and stable for discharge. Medications Administered Discontinued Medications Generic Name Dose Route Start Last Admin Trade Name Freq PRN Reason Stop Dose Admin Guaifenesin 10 ml 08/09/24 18:12 08/09/24 18:29 Guaifenesin 200 Mg/10 Ml 10 Ml Liquid PO 08/09/24 18:13 10 ml ONCE ONE Administration Prednisone 40 mg 08/09/24 18:12 08/09/24 18:29 Prednisone 20 Mg Tablet PO 08/09/24 18:13 40 mg ONCE ONE Administration Medical Decision Making Medical Decision Making [facility] Narrative: 54 year old female with pmhx significant for diverticulosis, diverticulitis, cigarette smoker presents to the ED today for evaluation of headache, cough, chest congestion, and myalgias x1 week. vital signs stable. Afebrile. She is nontoxic appearing in no acute distress. Bronchospastic cough. Lungs clear to auscultation. No tripoding or respiratory distress. Skin warm, dry, intact. No rashes. Posterior oropharynx WNL. Abdomen is soft, nondistended, nontender, no rebound tenderness or guarding. No CVAT bilaterally. Differential diagnosis includes anemia, electrolyte abnormality, dehydration, viral syndrome, bronchitis, pneumonia Plan for viral swabs, labs, UA, re-evaluation Differential Diagnosis Differential Diagnoses: The differential diagnosis associated with the presentation includes as above. Admission/Observation Not indicated. Lab Data [facility] Lab Attestation statement: I reviewed the patient's lab results. as above. 08/09/24 16:47 08/09/24 16:47 Labs: Lab Results 08/09/24 08/09/24 Range/Units 16:47 17:43 WBC 7.8 (4.8-10.8) X10*3/uL RBC 4.25 (4.20-5.50) X10*6/uL Hgb 13.3 (12.0-16.0) g/dl Hct 40.0 (37.0-47.0) % MCV 94.1 (80.0-98.0) fL MCH 31.3 (27.0-33.0) pg MCHC 33.3 (31.0-35.0) g/dl RDW 12.0 (11.0-16.0) % Plt Count 184 (160-400) X10*3/uL MPV 12.6 H (9.4-12.3) fL Immature Gran % (Auto) 0.9 H (0.0-0.4) % Neut % (Auto) 62.0 (45-73) % Lymph % (Auto) 26.2 (20-40) % Sharp % (Auto) 8.4 (2-11) % Eos % (Auto) 2.2 (0-4) % Baso % (Auto) 0.3 (0-2) % Lymph # (Auto) 2.0 (1.2-4.9) X10*3/uL Sharp # (Auto) 0.7 (0.1-1.2) X10*3/uL Eos # (Auto) 0.2 (0.0-0.4) X10*3/uL Baso # (Auto) 0.0 (0.0-0.2) X10*3/uL Abs Immat Gran (auto) 0.07 H (0.00-0.03) X10*3/uL Absolute Neuts (auto) 4.8 (2.0-8.3) x10*3/uL Absolute Nucleated RBC 0.000 (0.0-0.012) X10*3/uL Nucleated RBC % (auto) 0.0 (0.0-0.2) /100WBC Sodium 141 (135-145) mmol/L Potassium 4.3 D (3.3-5.1) mmol/L Chloride 106 (96-108) mmol/L Carbon Dioxide 25 (22-29) mmol/L Anion Gap 14 (12-20) BUN 11 (9-16) mg/dL Creatinine 0.96 (0.5-1.4) mg/dL Estim Creat Clear Calc 77.0 Estimated GFR > 60 Random Glucose 109 (60-115) mg/dL Calcium 9.9 (8.4-10.2) mg/dL Magnesium 2.1 (1.6-2.6) mg/dL Total Bilirubin 0.2 (0.0-1.0) mg/dL AST 44 H (5-31) U/L ALT 36 H (0-31) U/L Alkaline Phosphatase 96 (39-117) U/L Troponin I High Sens < 2.7 (<3.5-17.0) ng/L Total Protein 7.5 (6.5-8.0) g/dL Albumin 4.0 (3.5-5.0) g/dL Urine Color Yellow Urine Appearance Clear Urine pH 5.5 (5.0-9.0) Ur Specific [place] 1.020 (1.005-1.025) Urine Protein Negative (Neg-Trace) mg/dL Urine Glucose (UA) Negative (Negative) mg/dL Urine Ketones Trace (Negative) mg/dL Urine Blood Moderate (2+) H (Negative) Urine Nitrite Negative (Negative) Ur Leukocyte Esterase Negative (Negative) Urine RBC 3-5 H (0-2) /HPF Urine WBC 0-5 (0-5) /HPF Ur Squamous Epith Cells 0-2 (0-2) /HPF Urine Bacteria None Seen (None Seen) Hyaline Casts 0-2 (0-2) /LPF Influenza Type A (PCR) NEGATIVE (Negative) Influenza Type B (PCR) NEGATIVE (Negative) RSV RNA Qual (PCR) NEGATIVE (Negative) SARS-CoV-2 RNA (RT-PCR) NEGATIVE (Negative) Independent Interpretation I performed an independent interpretation of an: EKG and Plain X-Ray Interpretation: CXR with opacity to right upper lobe ekg showing normal sinus rhythm with a rate of 89 bpm, no acute ischemic changes or st elevations Radiology Impression Discussion of test interpretation with radiology: I have reviewed the radiologist's reading. Radiologist Impression: EXAMINATION: XR CHEST CLINICAL INFORMATION: cough COMPARISON: None available. TECHNIQUE: 2 views of the chest were obtained. FINDINGS: Developing right upper lobe opacity. No pleural effusion. No pneumothorax. The heart and mediastinal borders are normal. XR/XR chest 2V IMPRESSION: Developing right upper lobe opacity concerning for pneumonia. Electronically signed by: Lion Anderson MD 08/09/2024 05:01 PM [facility] Independent Historian Clinical information obtained from an independent historian. History obtained from or confirmed by: Spouse External Record Review External record reviewed: Inpatient record, Office record, Outpatient record, Prior outpatient labs, Prior outpatient radiology, Primary care record and Outside ED record Prescription Management I considered prescription management with: Antibiotic (azithromycin) and Other (tessalon) Social Determinants Patient?s care significantly limited by Social Determinants of Health including: Other Social Determinant of Health Critical Care Time Critical Care Time Critical Care Time: No Discharge Plan Discharge Clinical Impression: CAP (community acquired pneumonia) Patient Disposition: Home, Self-Care Instructions: Community Acquired Pneumonia (ED) Additional Instructions: Your blood work today is reassuring. Your cardiac enzyme is normal. You tested negative for covid/ flu/ rsv. Your chest xray shows findings consistent with an early pneumonia within your right upper lobe. Treatment for this is with antibiotics. Azithromycin as an antibiotic that has been sent to your pharmacy for treatment. Take 2 tablets today and 1 tablet every day for the next 4 days. I have also sent Tessalon Perles to your pharmacy for cough. Prednisone as a steroid that has been sent to your pharmacy to help with your breathing. You received a dose of this today so please take your next dose tomorrow. Follow up with your PCP in 3-4 weeks for repeat chest xray to ensure resolution of pneumonia. Return with new or worsening symptoms. In the case of an emergency call 911. Prescriptions: New azithromycin 250 mg tablet See Rx Instructions .ROUTE .COMPLEX Qty: 6 0RF Rx Instructions: For 250 mg dose pack: take 500 mg today (day 1), then 250 mg for 4 days (days 2-5) prednisone 20 mg tablet 40 mg PO DAILY 4 Days Qty: 8 0RF benzonatate 100 mg capsule 100 mg PO BID PRN (Reason: cough) Qty: 14 0RF No Action docusate sodium [Stool Softener] 100 mg capsule 100 mg PO BID Qty: 180 0RF simethicone 180 mg capsule 180 mg PO BID PRN (Reason: abdominal distention) Qty: 180 2RF polyethylene glycol 3350 [Miralax] 17 gram powder in packet 17 g PO DAILY Qty: 100 3RF oxycodone 5 mg tablet 5 mg PO Q8H PRN (Reason: pain) Qty: 7 0RF Rx Instructions: Partial Fill upon patient request. levofloxacin 500 mg tablet 500 mg PO Q24H Qty: 7 0RF ondansetron 4 mg tablet,disintegrating 4 mg PO Q8H PRN (Reason: nausea and vomiting) Qty: 20 0RF fluconazole 150 mg tablet 150 mg PO Q3D Qty: 2 0RF oxycodone 10 mg tablet 10 mg PO Q8H PRN (Reason: pain) Qty: 12 0RF Rx Instructions: Partial Fill upon patient request. cefuroxime axetil 250 mg tablet 250 mg PO BID 7 Days Qty: 14 0RF ketorolac 10 mg tablet 10 mg PO TID PRN (Reason: pain) 5 Days Qty: 15 0RF Rx Instructions: Tolerated IM or IV in department amoxicillin-pot clavulanate 875-125 mg tablet 1 tab PO BID 7 Days Qty: 14 0RF ondansetron HCl 4 mg tablet 4 mg PO Q8H PRN (Reason: nausea and vomiting) Qty: 14 0RF hydromorphone [Dilaudid] 2 mg tablet 2 mg PO Q4-6H PRN (Reason: pain) Qty: 10 0RF Rx Instructions: Patient may request partial fill; Partial Fill upon patient request. loratadine [Claritin] 10 mg tablet 10 mg PO DAILY Qty: 30 0RF amoxicillin-pot clavulanate 875-125 mg tablet 1 tab PO BID Qty: 14 0RF tramadol 50 mg tablet 50 mg PO Q6H PRN (Reason: severe pain (scale score 7-10)) Qty: 12 0RF benzonatate 200 mg capsule 200 mg PO TID PRN (Reason: cough) 5 Days Qty: 15 0RF Probiotic 3 billion cell capsule 3,000 mmu cells PO DAILY Qty: 30 5RF Rx Instructions: administer with a meal hydrocortisone [Proctosol HC] 2.5 % cream with perineal applicator 1 appl GA BID-QID PRN (Reason: hemorrhoids) Qty: 30 2RF pantoprazole 40 mg tablet,delayed release (DR/EC) 40 mg PO DAILY Qty: 90 2RF Rx Instructions: take one tablet half an hour before breakfast ondansetron 4 mg tablet,disintegrating 4 mg PO Q6-8H PRN (Reason: nausea and vomiting) Qty: 14 0RF bisacodyl [Dulcolax (bisacodyl)] 5 mg tablet,delayed release (DR/EC) 10 mg PO BEDTIME Qty: 180 4RF Referrals: Christelle Rondon MD [Primary Care Provider] - Stand Alone Forms: Work/School Release Interventions: ED Discharge Assessment Last Done: 08/09/24 18:50 Discharge Date/Time: 08/09/24 18:50 Print Language: Khmer
[2024-08-09 17:08] LABS: MANUAL DIFF FLAG NO
[2024-08-09 17:18] LABS: Basophils Percent Auto 0.3 % (0-2); Eosinophils Absolute Auto 0.2 X10*3/uL (0.0-0.4); Eosinophils Percent Auto 2.2 % (0-4); Hemoglobin 13.3 g/dl (12.0-16.0); Imm Gran Abs Auto 0.07 X10*3/uL (0.00-0.03); Imm Gran Pct Auto 0.9 % (0.0-0.4); Lymphocytes Percent Auto 26.2 % (20-40); Mean Corpuscular HGB Conc 33.3 g/dl (31.0-35.0); Mean Corpuscular Hemoglobin 31.3 pg (27.0-33.0); Mean Corpuscular Volume 94.1 fL (80.0-98.0); Mean Platelet Volume 12.6 fL (9.4-12.3); Monocytes Absolute Auto 0.7 X10*3/uL (0.1-1.2); Monocytes Percent Auto 8.4 % (2-11); Neutrophils Absolute Auto 4.8 x10*3/uL (2.0-8.3); Platelet Count 184 X10*3/uL (160-400); Red Blood Count 4.25 X10*6/uL (4.20-5.50); White Blood Count 7.8 X10*3/uL (4.8-10.8)
[2024-08-09 17:24] LABS: Alanine Aminotransferase 36 U/L (0-31); Alkaline Phosphatase 96 U/L (39-117); Anion Gap 14 (12-20); Aspartate Amino Transferase 44 U/L (5-31); Bilirubin Total 0.2 mg/dL (0.0-1.0); Blood Urea Nitrogen 11 mg/dL (9-16); Calcium 9.9 mg/dL (8.4-10.2); Carbon Dioxide 25 mmol/L (22-29); Chloride 106 mmol/L (96-108); Estimated Glomerular Filt Rate > 60; Glucose Random 109 mg/dL (60-115); Magnesium 2.1 mg/dL (1.6-2.6); Potassium 4.3 mmol/L (3.3-5.1); Sodium 141 mmol/L (135-145); Total Protein 7.5 g/dL (6.5-8.0)
[2024-08-09 17:32] LABS: Troponin-I High Sensitivity < 2.7 ng/L (<3.5-17.0)
[2024-08-09 17:45] LABS: Influenza A PCR NEGATIVE (Negative); Influenza B PCR NEGATIVE (Negative); Resp Syncy Virus RNA Qual PCR NEGATIVE (Negative); SARS COV2 PCR INHOUSE NEGATIVE (Negative)
[2024-08-09 17:53] LABS: Appearance Urine Clear; Color Urine Yellow; Glucose Urine UA Negative (Negative); Leukocyte Esterase Urine Negative (Negative); Nitrite Urine Negative (Negative); PH 5.5 (5.0-9.0); UMIC TRIGGER UACC YES; Urine Blood Moderate (2+) (Negative); Urine Ketones Trace mg/dL (Negative); Urine Protein Negative (Neg-Trace)
[2024-08-09 17:59] VITALS: BP 118/79; PULSE 87; RESP 16; TEMP 36.6; O2SAT 97
[2024-08-09 18:16] LABS: Bacteria Urine None Seen (None Seen); Hyaline Casts Urine 0-2 /LPF (0-2); Squamous Epithelial Cell Urine 0-2 /HPF (0-2); WBC Urine 0-5 /HPF (0-5)
[2024-08-09] MEDS: guaiFENesin 200 MG/10 ML 10 ML LIQUID PO (18:29)
[2024-08-09] MEDS: predniSONE 20 MG TABLET 40 MG PO (18:29)
[2024-08-09 18:50] VITALS: BP 118/79; PULSE 87; RESP 16; TEMP 36.6; O2SAT 97
== END 2024-08-09 18:50 | disposition home or self-care (01) ==
PROVIDERS: Physician Assistant Medical; Emergency Provider Emergency Medicine Emergency Medical Services; PCP Internal Medicine
DX: J18.8 Other pneumonia, unspecified organism (principal); Z03.818 Encounter for observation for suspected exposure to other biological agents ruled out; R05.9 Cough, unspecified; R07.9 Chest pain, unspecified; F17.210 Nicotine dependence, cigarettes, uncomplicated; Z79.899 Other long term (current) drug therapy
CPT/HCPCS: 0241U; 36415; 71046; 80053; 81001; 83735; 84484; 85025; 93005; 99283; 99284

== ENCOUNTER → 2024-08-09 16:30 | Outpatient (BNV) | payer MEDICAID, SELFPAY | PROVIDERS: Emergency Provider Emergency Medicine Emergency Medical Services; PCP Internal Medicine; Visit Provider Internal Medicine | DX: R07.9 Chest pain, unspecified (principal) | CPT/HCPCS: 93010 ==

== ENCOUNTER 2024-08-13 14:59 | Outpatient (AMB) | payer MEDICAID, SELFPAY ==
--- NOTE | 2024-08-13 15:03 | A.OFFVIS_ITS ---
Intake Visit Reasons: urinary incontinence/nocturia Intake Note: New Patient presents for initial visit for urinary incontinence Urology Medications: Blood Thinner: Special Service Officer Name: Antonieta Information Interpreted: non-clinical & clinical Accompanied by: Self / Same As Patient Allergies No Known Allergies [NKA] Allergy (Verified 08/14/24 19:04) HPI Comments Details: Malachi is a 54-year-old Dominican-speaking female who is here for evaluation due to urinary incontinence. She states that she leaks all the time including with coughing sneezing. She wears pads daily. She states that a few years ago she was treated with a bladder medication that worked initially and then stopped working. Comorbidity nicotine use, obesity. Discussed further evaluation with urodynamics. Review of chart CTAP-w IV contrast- bilateral renal cysts otherwise kidneys within normal limits. The patient complains of back pain I have reassured her that the renal cysts would not be a cause back pain. Labs: Urinalysis - reviewed - significant for microscopic hematuria. [facility] Medical History Hx of sigmoidoscopy Post-menopause Diverticulosis Diverticulitis Family history of coronary artery bypass graft Smoking Unstable angina pectoris Chronic idiopathic constipation Obesity (BMI 30-39.9) Cigarette smoker Screening for colon cancer Hepatic steatosis Surgical History H/O colonoscopy Morbid obesity Hx of tonsillectomy Family History Brother Cancer Father Diabetes Mother Diabetes HTN (hypertension) Heart problem Family/Other Diabetes Social History Household Members: Children Housing: House Do you presently have visiting nurse or other home services: No Alcohol intake: never Patient Tobacco Use Status: Never used Tobacco Cigarette Packs Per Day: 0.5 Cigarettes Per Day: 10.0 Second Hand Smoke Exposure: No Review of Systems Const All systems reviewed & are unremarkable except as noted in HPI and below Reports no additional complaints Eyes Reports no additional complaints ENT Reports no additional complaints Card Reports no additional complaints Resp Reports no additional complaints GI Reports no additional complaints Reports as per HPI Musc Reports no additional complaints Skin/Breast Reports system reviewed and no additional complaints, except as documented Neuro Reports no additional complaints Psych Reports no additional complaints Endo Reports no additional complaints Amilcar/Lymph Reports no additional complaints Aller/Immun Reports no additional complaints Physical Exam Const General: cooperative, healthy appearing and no acute distress Nutritional Appearance: overweight Orientation/consciousness: patient oriented x3 HEENT Head: Yes normal to inspection, Yes normocephalic and Yes atraumatic Eyes Conjunctivae: conjunctivae normal Neck Neck: Yes normal visual inspection and Yes trachea midline Chest Chest palpation & inspection: normal inspection of the chest Resp Effort & Inspection: normal respiratory effort Cardio Rate: regular rate GI Inspection: Yes normal to inspection Skin General skin exam: no rashes or lesions noted Neuro General: patient oriented x3 Extrem General: No edema Psych Appearance: grossly normal Office Procedures Post Void Residual Post Residual Void Post Void Residual (PVR): 0 [id number] Void Residual by ultrasound Results AMB Urinalysis, Automated UA Leukoctes 0 Mara/uL Last Edit by [employer] on 08/13/24 15:29 UA Nitrite Last Edit by [employer] on 08/13/24 15:29 UA Urobilinogen 0.2 mg/dL Last Edit by [employer] on 08/13/24 15:29 UA Protein 0 mg/dL Last Edit by [employer] on 08/13/24 15:29 UA pH 6.5 Last Edit by [employer] on 08/13/24 15:29 UA Blood 10 Samuel/uL Last Edit by [employer] on 08/13/24 15:29 UA Specific [place] 1.015 Last Edit by [employer] on 08/13/24 15:29 UA Ketone Last Edit by [employer] on 08/13/24 15:29 UA Bilirubin 0 mg/dL Last Edit by Mdundoyce [employer] on 08/13/24 15:29 UA Glucose 0 mg/dL Last Edit by Gualberto Kapadia on 08/13/24 15:29 Results Reviewed Results Reviewed: Laboratory Last Values Urine pH (Auto) 6.5 08/13/24 15:28 Specific [place] (Auto) 1.015 08/13/24 15:28 Urine Protein (Auto) 0 mg/dL 08/13/24 15:28 Glucose (UA)(Auto) 0 mg/dL 08/13/24 15:28 Urine Blood (Auto) 10 Samuel/uL 08/13/24 15:28 Urine Bilirubin (Auto) 0 mg/dL 08/13/24 15:28 Urine Urobilinogen (Auto) 0.2 mg/dL 08/13/24 15:28 Leukocyte Esterase (Auto) 0 Mara/uL 08/13/24 15:28 05/25/24 06/03/24 08/09/24 08/13/24 08/14/24 Urine Color Yellow Yellow Yellow Yellow Urine Appearance Clear Clear Clear Clear Urine pH (5.0-9.0) 6.5 5.5 5.5 5.5 Urine pH (Auto) 6.5 Ur Specific [place] (1.005-1.025) 1.025 1.025 1.020 1.025 Specific [place] (Auto) 1.015 Urine Protein (Neg-Trace?mg/dL) Negative Negative Negative Negative Urine Protein (Auto) 0 Urine Glucose (UA) (Negative?mg/dL) Negative Negative Negative Negative Glucose (UA)(Auto) 0 Urine Ketones (Negative?mg/dL) Negative Negative Trace Negative Urine Blood (Negative) Trace?H Negative Moderate (2+)?H Trace?H Urine Blood (Auto) 10 Urine Nitrite (Negative) Negative Negative Negative Negative Urine Bilirubin (Auto) 0 Urine Urobilinogen (Auto) 0.2 Ur Leukocyte Esterase (Negative) Trace?H y Small (1+)?H Negative Negative Leukocyte Esterase (Auto) 0 Urine RBC (0-2?/HPF) 3-5?H 3-5?H 3-5?H 0-2 Urine WBC (0-5?/HPF) 0-5 6-10?H 0-5 0-5 Ur Squamous Epith Cells (0-2?/HPF) 0-2 6-10 0-2 3-5 Date of Service: 06/03/24 CT ABDOMEN AND PELVIS WITH CONTRAST CLINICAL INFORMATION: Abdominal pain. COMPARISON: May 25, 2024 TECHNIQUE: Multidetector volumetric images were obtained from the superior aspect of the liver through the pubic symphysis following administration 85 mL of Omnipaque 350 intravenous contrast. Sagittal and coronal reformatted images were obtained on the technologist's workstation. Oral contrast: No This CT examination was performed using dose optimization techniques as appropriate, variously including the following: *Automated exposure control *Adjustment of mA and/or kV according to patient size (this includes techniques or standardized protocols for targeted exams where dose is matched to indication/reason for exam; i.e. extremities or head) *Use of iterative reconstruction technique DLP: 805 mGy-cm FINDINGS: LUNG BASES: The visualized lung bases are unremarkable. LIVER, GALLBLADDER, AND BILIARY TREE: The liver is of diminished attenuation. No focal liver lesions are seen. There is no intrahepatic biliary duct dilatation. The gallbladder is unremarkable with no evidence of radiopaque gallstones, gallbladder wall thickening, or obvious pericholecystic inflammatory changes. PANCREAS: Unremarkable. SPLEEN: Unremarkable. ADRENAL GLANDS: Unremarkable. KIDNEYS AND URETERS: The kidneys are normal in size, shape, and attenuation. Bilateral renal cysts are again noted measuring up to 5.7 cm lower pole right kidney. There is no hydronephrosis. BLADDER: Unremarkable. GASTROINTESTINAL TRACT: There are diverticula of the descending and rectosigmoid colon. There is no definitive evidence for acute diverticulitis. The appendix is unremarkable. ABDOMINAL WALL: No significant hernia is appreciated. LYMPH NODES: Normal. VASCULAR: Unremarkable. PELVIC VISCERA: Unremarkable. OSSEOUS STRUCTURES: Unremarkable. IMPRESSION: 1. Diverticulosis of the descending and rectosigmoid colon. There is no definitive evidence for acute diverticulitis. 2. Hepatic steatosis. 3. Bilateral renal cysts. Assessment & Plan Assessment & Plan (1) Urinary incontinence: Code(s): R32 - Unspecified urinary incontinence Category: Medical (2) Obesity (BMI 30-39.9): Code(s): E66.9 - Obesity, unspecified Category: Medical (3) Back pain: Code(s): M54.9 - Dorsalgia, unspecified Category: Medical (4) Hematuria: Code(s): R31.9 - Hematuria, unspecified Category: Medical Plan urodynamic, pt requesting pads cystoscopy Orders: Orders AMB Post Void Residual by ultrasound 08/13/24 Z13.9 - Encounter for screening, unspecified AMB Urinalysis Automated 08/13/24 Z13.9 - Encounter for screening, unspecified Patient Instructions: The patient had an opportunity to ask questions regarding treatment plan. The patient expressed understanding and agreement with the above treatment plan. The patient is aware they should contact our office by phone for worsening of their current condition or the appearance of new symptoms. Compliance is encouraged with any medications and followup testing that is ordered. It is a privilege to be allowed the opportunity to participate in the urologic care of your patient. If you have any questions or concerns regarding treatment for the above conditions please do not hesitate to contact me. The office telephone contact is [phone]. This note is constructed in part using voice recognition software. While every effort has been made to ensure accuracy marketing research intern errors may have been included. Yours sincerely, Ingris Espinal MD Coding Level of Care Code New Pt Level 4 (41932) Diagnoses Urinary incontinence R32 Obesity (BMI 30-39.9) E66.9 Back pain M54.9 Hematuria R31.9 CPT Codes Post Residual Void - PVR CPT Code: 86477-[id number] Void Residual by ultrasound ([id number])
== END 2024-08-13 15:43 | disposition home or self-care (01) ==
PROVIDERS: PCP Internal Medicine; Visit Provider Urology
DX: R32 Unspecified urinary incontinence (principal); E66.9 Obesity, unspecified; M54.9 Dorsalgia, unspecified; R31.9 Hematuria, unspecified
CPT/HCPCS: 99204

== ENCOUNTER → 2024-08-13 14:59 | Outpatient (BNVA) | payer MEDICAID, SELFPAY | PROVIDERS: PCP Internal Medicine; Visit Provider Urology | DX: R32 Unspecified urinary incontinence (principal); R35.1 Nocturia; R31.29 Other microscopic hematuria; M54.9 Dorsalgia, unspecified; E66.9 Obesity, unspecified | CPT/HCPCS: 51798; 81003; 99202 ==

== ENCOUNTER 2024-08-14 18:49 | Emergency (ER) | payer MEDICAID, SELFPAY ==
--- NOTE | ~2024-08-14 | XR_ITS ---
EXAMINATION: XR CHEST CLINICAL INFORMATION: chest pain, sob COMPARISON: Chest x-ray on 08/09/2024 TECHNIQUE: 2 views of the chest were obtained. FINDINGS: No significant abnormality is noted involving the heart, lungs, mediastinum, bony thorax or soft tissues. XR/XR chest 2V IMPRESSION: Unremarkable examination. Electronically signed by: Josie Osborne MD 08/14/2024 08:44 PM [facility]
--- NOTE | 2024-08-14 18:51 | ECG_ITS ---
Test Reason : CP Blood Pressure : / mmHG Vent. Rate : 084 BPM Atrial Rate : 084 BPM P-R Int : 116 ms QRS Dur : 080 ms QT Int : 348 ms P-R-T Axes : 027 011 049 degrees QTc Int : 411 ms Normal sinus rhythm Normal ECG When compared with ECG of 09-AUG-2024 16:25, No significant change was found Referred By: Generic ED Physician Electronically Signed By:Julio Bourne
[2024-08-14 19:03] VITALS: BP 122/72; PULSE 93; RESP 17; TEMP 36.4; O2SAT 96; BMI 43.5
--- NOTE | 2024-08-14 19:04 | ED_ITS ---
HPI - Chest Pain General Chief Complaint: Upper Respiratory Symptoms Stated Complaint: Chest pain Time Seen by Provider: 08/14/24 20:27 Source: patient Mode of arrival: ambulatory Limitations: no limitations History of Present Illness ED Provider: Renetta Saldana NP HPI narrative: Patient is a 54 year old female presents emergency department for evaluation of persistent cough in discomfort to the anterior chest during episodes of coughing, intermittent shortness of breath. Reports that she was diagnosed with pneumonia 1 week ago. She completed her antibiotics. She still continues to have the cough and pain. She denies associated fevers or chills. She denies any tingling of her extremities, no head or neck pain, no additional URI symptoms, no nausea vomiting or abdominal pain. Denies any known sick contacts. Related Data Home Medications ?Medication ?Instructions ?Recorded ?Confirmed oxybutynin chloride 5 mg 5 mg PO DAILY 08/13/24 tablet,extended release 24 hr Previous Rx's ?Medication ?Instructions ?Recorded lactobacillus combination no.4 3 3,000 mmu cells PO DAILY #30 caps 10/20/22 billion cell capsule (Probiotic) hydromorphone 2 mg tablet 2 mg PO Q4-6H PRN pain #10 tabs 02/23/23 (Dilaudid) loratadine 10 mg tablet (Claritin) 10 mg PO DAILY #30 tabs 03/28/23 bisacodyl 5 mg tablet,delayed 10 mg (2 x 5 mg) PO BEDTIME #180 06/25/23 release (Dulcolax (bisacodyl)) tabs hydrocortisone 2.5 % topical cream 1 appl HI BID-QID PRN hemorrhoids 06/25/23 with perineal applicator #30 grams (Proctosol HC) pantoprazole 40 mg tablet,delayed 40 mg PO DAILY #90 tabs 06/25/23 release tramadol 50 mg tablet 50 mg PO Q6H PRN severe pain 11/04/23 (scale score 7-10) #12 tabs oxycodone 10 mg tablet 10 mg PO Q8H PRN pain #12 tabs 11/19/23 docusate sodium 100 mg capsule 100 mg PO BID #180 caps 12/26/23 (Stool Softener) simethicone 180 mg capsule 180 mg PO BID PRN abdominal 12/26/23 distention #180 caps polyethylene glycol 3350 17 gram 17 g PO DAILY #100 ea 01/10/24 oral powder packet (Miralax) ketorolac 10 mg tablet 10 mg PO TID PRN pain 5 days #15 05/25/24 tabs ondansetron HCl 4 mg tablet 4 mg PO Q8H PRN nausea and 05/25/24 vomiting #14 tabs benzonatate 100 mg capsule 100 mg PO BID PRN cough #14 caps 08/09/24 benzonatate 100 mg capsule 100 mg PO BID PRN cough #20 caps 08/14/24 Allergies Allergy/AdvReac Type Severity Reaction Status Date / Time No Known Allergies [NKA] Allergy Verified 08/14/24 19:04 Review of Systems 2 Review of Systems: Yes all other systems are reviewed and are negative PMFSH Past Medical History Attestation statement: The following information was validated with the patient. Source: old records reviewed Medical History Hx of sigmoidoscopy Post-menopause Diverticulosis Diverticulitis Family history of coronary artery bypass graft Smoking Unstable angina pectoris Chronic idiopathic constipation Obesity (BMI 30-39.9) Cigarette smoker Screening for colon cancer Hepatic steatosis Surgical History H/O colonoscopy Morbid obesity Hx of tonsillectomy Family History Family History Brother Cancer Father Diabetes Mother Diabetes HTN (hypertension) Heart problem Family/Other Diabetes Social History Social History Household Members: Children Housing: House Do you presently have visiting nurse or other home services: No Alcohol intake: never Patient Tobacco Use Status: Never used Tobacco Cigarette Packs Per Day: 0.5 Cigarettes Per Day: 10.0 Second Hand Smoke Exposure: No Advance Directives: No Advance Directives Information Provided: No Do you have a plan to hurt others: No Plan Physical Exam 2 Vital Signs: Vital Signs: Last Vital Signs Temp 97.6 F 08/14/24 21:46 Pulse 93 08/14/24 21:46 Resp 17 08/14/24 21:46 BP 122/72 08/14/24 21:46 Pulse Ox 96 08/14/24 21:46 O2 Del Method Room Air 08/14/24 21:46 BMI result Body Mass Index 43.5 Appearance: Alert.?Oriented to person, place and time. No acute distress.?Normal affect. Eyes: Pupils equal, round and reactive to light.? ENT: TM normal bilaterally. Pharynx normal.?? Neck: Normal inspection.? Neck supple.??No cervical adenopathy CVS: Heart sounds normal. Normal heart rate and rhythm.? Pulses normal.?? Respiratory: No respiratory distress.? Lung sounds clear to auscultation bilaterally?? Abdomen: Soft and non-tender. Normoactive bowel sounds. Skin: Skin warm and dry.? Normal skin color.? ? Extremities: No lower extremity edema.? Neuro: Moves all extremities spontaneously. Sensation intact bilaterally. No motor deficits. Ambulates with normal steady gait. Course Course Course Narrative: This is a Rapid Medical Examination (RME) performed by Priya Orozco PA-C in triage. Full HPI, ROS, assessment and treatment plan per primary provider in the Main ED. 54 yo female here with chest pain, sob, and cough. diagnosed with PNA on 08/09/24, completed abx as prescribed. now having continued symptoms. Plan: ekg, labs, CXR Medical Decision Making Medical Decision Making MDM Narrative: Patient is a 54 year old female who presents to the emergency department for evaluation persistent cough chest discomfort shortness of breath as per HPI in the setting of recent right upper lobe pneumonia she was treated with a course of azithromycin. Still not feeling completely better. Chest x-ray today shows resolution, CBC with a mild leukocytosis no anemia or thrombocytopenia, no electrolyte derangement, no KATIA. High sensitive troponin below detectable limits. EKG nonischemic does not appear consistent with ACS. Overall is Well- appearing, nontoxic, afebrile, no tachycardia or tachypnea/hypoxia. Speaking clear full sentences, ambulatory with steady gait. Discussed conservative treatment including rest, hydration, Tylenol/ibuprofen as needed for fever and body aches, saline nasal spray, humidifier, [id number] cold medication. I have sent prescription for benzonatate to pharmacy. Advised to follow-up with primary care provider as needed, discussed reasons to return back to the emergency department. All questions were answered. Patient discharged home in stable condition. Differential Diagnosis Differential Diagnoses: The differential diagnosis associated with the presentation includes ( See narrative above) Admission/Observation Consideration of admission/observation: Escalation of care including admission/observation considered ( see narrative above) Lab Data MDM Lab Attestation statement: I reviewed the patient's lab results. ( see narrative above) 08/14/24 19:23 08/14/24 19:23 Labs: Lab Results 08/14/24 Range/Units 19:23 WBC 12.8 H (4.8-10.8) X10*3/uL RBC 4.29 (4.20-5.50) X10*6/uL Hgb 13.2 (12.0-16.0) g/dl Hct 40.0 (37.0-47.0) % MCV 93.2 (80.0-98.0) fL MCH 30.8 (27.0-33.0) pg MCHC 33.0 (31.0-35.0) g/dl RDW 12.3 (11.0-16.0) % Plt Count 230 (160-400) X10*3/uL MPV 11.6 (9.4-12.3) fL Immature Gran % (Auto) 0.8 H (0.0-0.4) % Neut % (Auto) 51.2 (45-73) % Lymph % (Auto) 40.7 H (20-40) % [place] % (Auto) 5.9 (2-11) % Eos % (Auto) 1.1 (0-4) % Baso % (Auto) 0.3 (0-2) % Lymph # (Auto) 5.2 H (1.2-4.9) X10*3/uL [place] # (Auto) 0.8 (0.1-1.2) X10*3/uL Eos # (Auto) 0.1 (0.0-0.4) X10*3/uL Baso # (Auto) 0.0 (0.0-0.2) X10*3/uL Abs Immat Gran (auto) 0.10 H (0.00-0.03) X10*3/uL Absolute Neuts (auto) 6.6 (2.0-8.3) x10*3/uL Absolute Nucleated RBC 0.000 (0.0-0.012) X10*3/uL Nucleated RBC % (auto) 0.0 (0.0-0.2) /100WBC Smear Tech's Comments VERIFIED Sodium 141 (135-145) mmol/L Potassium 3.8 (3.3-5.1) mmol/L Chloride 108 (96-108) mmol/L Carbon Dioxide 25 (22-29) mmol/L Anion Gap 12 (12-20) BUN 17 H (9-16) mg/dL Creatinine 1.00 (0.5-1.4) mg/dL Estim Creat Clear Calc 74.3 Estimated GFR 58 Random Glucose 153 H (60-115) mg/dL Calcium 9.0 D (8.4-10.2) mg/dL Magnesium 2.1 (1.6-2.6) mg/dL Total Bilirubin 0.2 (0.0-1.0) mg/dL AST 35 H (5-31) U/L ALT 39 H (0-31) U/L Alkaline Phosphatase 91 (39-117) U/L Troponin I High Sens 3.2 (<3.5-17.0) ng/L Total Protein 7.3 (6.5-8.0) g/dL Albumin 4.0 (3.5-5.0) g/dL Urine Color Yellow Urine Appearance Clear Urine pH 5.5 (5.0-9.0) Ur Specific [place] 1.025 (1.005-1.025) Urine Protein Negative (Neg-Trace) mg/dL Urine Glucose (UA) Negative (Negative) mg/dL Urine Ketones Negative (Negative) mg/dL Urine Blood Trace H (Negative) Urine Nitrite Negative (Negative) Ur Leukocyte Esterase Negative (Negative) Urine RBC 0-2 (0-2) /HPF Urine WBC 0-5 (0-5) /HPF Ur Squamous Epith Cells 3-5 (0-2) /HPF Urine Bacteria None Seen (None Seen) Hyaline Casts 0-2 (0-2) /LPF Independent Interpretation I performed an independent interpretation of an: EKG and Plain X-Ray (Resolution of right upper lobe pneumonia) Interpretation: EKG reveals normal sinus rhythm with ventricular rate of 84, QTC 411, no ST elevation, no ST depression. Radiology Impression Discussion of test interpretation with radiology: I have reviewed the radiologist's reading. Radiologist Impression: XR/XR chest 2V IMPRESSION: Unremarkable examination. Independent Historian Clinical information obtained from an independent historian. History obtained from or confirmed by: Spouse External Record Review External record reviewed: Outpatient record Prescription Management I considered prescription management with: Pain Medication ( acetaminophen/ibuprofen) and Other (See narrative above) Discharge Plan Discharge Clinical Impression: Bronchitis Patient Disposition: Home, Self-Care Instructions: Acute Bronchitis (ED) Additional Instructions: You can take ibuprofen 200 mg, 3 tablets (600mg) every 6-8 hours as needed for pain, in addition to Tylenol 500 mg, 2 tablets (1,000mg) every 4-6 hours as needed for pain, but not to exceed 3 doses daily (3,000mg).? Use Tessalon/benzonatate for cough. Follow-up with primary care doctor. Return with any new or worsening symptoms or concerns Prescriptions: New benzonatate 100 mg capsule 100 mg PO BID PRN (Reason: cough) Qty: 20 0RF No Action docusate sodium [Stool Softener] 100 mg capsule 100 mg PO BID Qty: 180 0RF simethicone 180 mg capsule 180 mg PO BID PRN (Reason: abdominal distention) Qty: 180 2RF polyethylene glycol 3350 [Miralax] 17 gram powder in packet 17 g PO DAILY Qty: 100 3RF oxycodone 10 mg tablet 10 mg PO Q8H PRN (Reason: pain) Qty: 12 0RF Rx Instructions: Partial Fill upon patient request. ketorolac 10 mg tablet 10 mg PO TID PRN (Reason: pain) 5 Days Qty: 15 0RF Rx Instructions: Tolerated IM or IV in department ondansetron HCl 4 mg tablet 4 mg PO Q8H PRN (Reason: nausea and vomiting) Qty: 14 0RF hydromorphone [Dilaudid] 2 mg tablet 2 mg PO Q4-6H PRN (Reason: pain) Qty: 10 0RF Rx Instructions: Patient may request partial fill; Partial Fill upon patient request. loratadine [Claritin] 10 mg tablet 10 mg PO DAILY Qty: 30 0RF tramadol 50 mg tablet 50 mg PO Q6H PRN (Reason: severe pain (scale score 7-10)) Qty: 12 0RF benzonatate 100 mg capsule 100 mg PO BID PRN (Reason: cough) Qty: 14 0RF Probiotic 3 billion cell capsule 3,000 mmu cells PO DAILY Qty: 30 5RF Rx Instructions: administer with a meal hydrocortisone [Proctosol HC] 2.5 % cream with perineal applicator 1 appl HI BID-QID PRN (Reason: hemorrhoids) Qty: 30 2RF pantoprazole 40 mg tablet,delayed release (DR/EC) 40 mg PO DAILY Qty: 90 2RF Rx Instructions: take one tablet half an hour before breakfast bisacodyl [Dulcolax (bisacodyl)] 5 mg tablet,delayed release (DR/EC) 10 mg PO BEDTIME Qty: 180 4RF oxybutynin chloride 5 mg tablet extended release 24hr 5 mg PO DAILY Interventions: ED Discharge Assessment Last Done: 08/14/24 21:46 Discharge Date/Time: 08/14/24 21:46 Print Language: Citizen Of [place]
[2024-08-14 19:33] LABS: Appearance Urine Clear; Basophils Percent Auto 0.3 % (0-2); Color Urine Yellow; Eosinophils Absolute Auto 0.1 X10*3/uL (0.0-0.4); Eosinophils Percent Auto 1.1 % (0-4); Glucose Urine UA Negative (Negative); Hemoglobin 13.2 g/dl (12.0-16.0); Imm Gran Pct Auto 0.8 % (0.0-0.4); Leukocyte Esterase Urine Negative (Negative); Lymphocytes Absolute Auto 5.2 X10*3/uL (1.2-4.9); Lymphocytes Percent Auto 40.7 % (20-40); MANUAL DIFF FLAG SCAN; Mean Corpuscular Hemoglobin 30.8 pg (27.0-33.0); Mean Corpuscular Volume 93.2 fL (80.0-98.0); Mean Platelet Volume 11.6 fL (9.4-12.3); Monocytes Absolute Auto 0.8 X10*3/uL (0.1-1.2); Monocytes Percent Auto 5.9 % (2-11); Neutrophils Absolute Auto 6.6 x10*3/uL (2.0-8.3); Neutrophils Percent Auto 51.2 % (45-73); Nitrite Urine Negative (Negative); PH 5.5 (5.0-9.0); Platelet Count 230 X10*3/uL (160-400); Red Blood Count 4.29 X10*6/uL (4.20-5.50); Red Cell Distribution Width 12.3 % (11.0-16.0); SCAN SMEAR FLAG 1; Specific Gravity - Urine 1.025 (1.005-1.025); UMIC TRIGGER UACC YES; Urine Blood Trace (Negative); Urine Ketones Negative (Negative); Urine Protein Negative (Neg-Trace); White Blood Count 12.8 X10*3/uL (4.8-10.8)
[2024-08-14 19:39] LABS: Bacteria Urine None Seen (None Seen); Hyaline Casts Urine 0-2 /LPF (0-2); RBC Urine 0-2 /HPF (0-2); WBC Urine 0-5 /HPF (0-5)
[2024-08-14 19:48] LABS: Alanine Aminotransferase 39 U/L (0-31); Alkaline Phosphatase 91 U/L (39-117); Anion Gap 12 (12-20); Aspartate Amino Transferase 35 U/L (5-31); Bilirubin Total 0.2 mg/dL (0.0-1.0); Blood Urea Nitrogen 17 mg/dL (9-16); Carbon Dioxide 25 mmol/L (22-29); Chloride 108 mmol/L (96-108); Creatinine Clr Calc Pharmacy 74.3; Estimated Glomerular Filt Rate 58; Glucose Random 153 mg/dL (60-115); Magnesium 2.1 mg/dL (1.6-2.6); Potassium 3.8 mmol/L (3.3-5.1); Sodium 141 mmol/L (135-145); Total Protein 7.3 g/dL (6.5-8.0)
[2024-08-14 19:55] LABS: Troponin-I High Sensitivity 3.2 ng/L (<3.5-17.0)
[2024-08-14 20:34] LABS: SLIDE REVIEW VERIFIED
[2024-08-14 21:46] VITALS: BP 122/72; PULSE 93; RESP 17; TEMP 36.4; O2SAT 96
== END 2024-08-14 21:46 | disposition home or self-care (01) ==
PROVIDERS: Physician Assistant Medical; Emergency Provider Emergency Medicine
DX: J40 Bronchitis, not specified as acute or chronic (principal); R07.89 Other chest pain; R05.9 Cough, unspecified; R06.02 Shortness of breath; Z79.899 Other long term (current) drug therapy; F17.210 Nicotine dependence, cigarettes, uncomplicated
CPT/HCPCS: 36415; 71046; 80053; 81001; 83735; 84484; 85025; 93005; 99283

== ENCOUNTER → 2024-08-14 18:51 | Outpatient (BNV) | payer MEDICAID, SELFPAY | PROVIDERS: Emergency Provider Emergency Medicine; Visit Provider Internal Medicine Cardiovascular Disease | DX: R07.9 Chest pain, unspecified (principal) | CPT/HCPCS: 93010 ==

== ENCOUNTER 2024-09-15 16:10 | Outpatient (AMB) | payer MEDICAID, SELFPAY ==
[2024-09-15 16:12] VITALS: BP 110/70; PULSE 80; O2SAT 96; BMI 43.8
--- NOTE | 2024-09-15 16:12 | MHC.OFFVIS ---
Vital Signs 09/15/24 16:12 Height 5 ft 2 in Weight 239 lb 6.752 oz BMI 43.8 BP 110/70 Blood Pressure Location Lt brachial Position Sitting Pulse 80 Pulse Source Pulse Oximeter Pulse Oximetry (%) 96 Oxygen Delivery Method Room Air Intake Visit Reasons: FUV, R/S x1 from 08/19 Intake Note: ESTABLISHED PATIENT Reason; 1+ year FUV. Changes/concerns? Pt would like to discuss weight management referral. Pt is also curious regarding a colon cleaning ? Pt is unable to provide much clarification on this. Cement Rubber Required: Yes Cement Rubber Services: Cement Rubber Present Cement Rubber Name: [id number] Weber Information Interpreted: non-clinical & clinical Accompanied by: Self / Same As Patient Allergies No Known Allergies [NKA] Allergy (Verified 09/15/24 16:16) HPI HPI FUV, R/S x1 from 08/19: Details: LAST VISIT: Abdominal bloating with cramps Chronic idiopathic constipation IBS (irritable bowel syndrome) GERD (gastroesophageal reflux disease) Plan Patient can continue take MiraLax and docusate sodium in the evening. I will add Dulcolax tablets. Patient was encouraged to increase fluid intake and activity to promote better bowel motility. Patient can take on as needed basis simethicone for postprandial abdominal bloating. Discussed with patient the importance of avoiding dietary triggers late night snacking. Staying upright for minimal 3 hours after meals discussed with patient. Patient was encouraged to eat smaller meals and more often. Proctosol sent to pharmacy to treat her hemorrhoids. Patient was encouraged to call our office if she will continue have rectal bleeding. Patient was encouraged to increase fluid intake and activity to promote better bowel motility. I will see her in 6 months, sooner on as needed basis. Patient is agreeable to this plan and verbalizes understanding of instructions. She was given the opportunity to ask questions and all questions answered. ? Thank you for allowing me to participate in her care Medications New bisacodyl (Dulcolax (bisacodyl)) 10 mg (2 x 5 mg) PO BEDTIME 180 tabs 4RF Changed Changed From polyethylene glycol 3350 17 grams PO DAILY 100 ea 3RF Changed To polyethylene glycol 3350 (Miralax) 17 grams PO DAILY 100 ea 3RF Refilled docusate sodium (Colace) 100 mg PO BID 180 caps 2RF simethicone 180 mg PO BID PRN 180 caps 2RF abdominal distention pantoprazole take one tablet half an hour before breakfast 40 mg PO DAILY 90 tabs 2RF K21.9 hydrocortisone 2.5% (Proctosol HC) 1 appl MS BID-QID PRN 30 grams 2RF hemorrhoids K64.9 ondansetron 4 mg PO Q6-8H PRN 14 tabs 0RF nausea and vomiting Discontinued linaclotide Discontinued Reason: Patient no longer taking 145 mcg PO DAILY 90 caps 3RF K59.04 TODAY'S VISIT Patient is here today for requested visit. Patient has not followed up since June of 2023. Patient is interested in losing weight, however she already saw Dr. Charles back in 2019 and decided she did not want to go through with the surgery. Patient was recommended to speak to her PCP to see if she can go on weight loss management with GLP 1. Patient is inquiring about doing detox. Patient reports that she continues to have abdominal bloating postprandially. Patient is not trying to do any particular diet. Continues to have acid reflux. Still takes pantoprazole. Admits to be eating late at night. Patient denies nausea or vomiting. Denies dyspepsia, dysphagia or odynophagia. Denies melena, hematochezia, unintentional weight loss or ribbon like stools. [facility] Medical History Hx of sigmoidoscopy Post-menopause Diverticulosis Diverticulitis Family history of coronary artery bypass graft Smoking Unstable angina pectoris Chronic idiopathic constipation Obesity (BMI 30-39.9) Cigarette smoker Screening for colon cancer Hepatic steatosis Surgical History H/O colonoscopy Morbid obesity Hx of tonsillectomy Family History Brother Cancer Father Diabetes Mother Diabetes HTN (hypertension) Heart problem Family/Other Diabetes Social History Household Members: Children Housing: House Do you presently have visiting nurse or other home services: No Alcohol intake: never Patient Tobacco Use Status: Never used Tobacco Cigarette Packs Per Day: 0.5 Cigarettes Per Day: 10.0 Second Hand Smoke Exposure: No Review of Systems Const Denies weight gain and Denies weight loss ENT Reports no additional complaints, Denies dysphagia and Denies odynophagia Card Reports no additional complaints Resp Reports no additional complaints GI Denies abdominal pain, Denies belching, Denies melena, Reports bloating, Denies change in bowel habits, Reports constipation, Denies dysphagia, Denies excessive flatus, Denies dyspepsia, Reports heartburn, Denies diarrhea, Denies loose stools, Denies nausea, Denies odynophagia and Denies vomiting Reports no additional complaints Musc Reports no additional complaints Neuro Reports no additional complaints Psych Reports no additional complaints Endo Reports no additional complaints Physical Exam Vital Signs: Last Vital Signs Pulse 80 09/15/24 16:12 BP 110/70 09/15/24 16:12 Pulse Ox 96 09/15/24 16:12 Oxygen Delivery Method Room Air 09/15/24 16:12 BMI result Body Mass Index 43.8 Const General: healthy appearing, no acute distress and well developed Nutritional Appearance: obese Orientation/consciousness: patient oriented x3 HEENT Head: Yes normal to inspection, Yes normocephalic and Yes atraumatic Face and sinus: Yes normal facial exam Mouth: Normal oral and palatal mucosa present Throat: Yes posterior oropharynx normal, Yes tonsils normal and Yes uvula midline Eyes General: appearance normal, both eyes and all related structures Neck Neck: Yes normal visual inspection, Yes full ROM and Yes trachea midline Thyroid: Thyroid normal Resp Effort & Inspection: normal respiratory effort, able to speak in complete sentences, no tracheal deviation and symmetric chest movement Auscultation: clear to auscultation bilaterally Cardio Rate: regular rate Heart sounds: S1 normal heart sound present and S2 normal heart sound present GI Inspection: Yes normal to inspection, No distended and Yes obesity Palpation (GI): Soft to palpation, not firm, nontender and No hepatosplenomegaly present Auscultation: normal bowel sounds General: Yes no CVA tenderness Back/Spine/Pelvis Back: no CVA tenderness Skin General skin exam: elasticity normal, turgor normal and dry skin Neuro General: patient oriented x3 Psych Appearance: grossly normal Mental Status: mental status grossly normal Affect: normal affect Assessment & Plan Assessment & Plan (1) Abdominal bloating with cramps: Code(s): R14.0 - Abdominal distension (gaseous); R10.9 - Unspecified abdominal pain Category: Medical (2) Chronic idiopathic constipation: Code(s): K59.04 - Chronic idiopathic constipation Category: Medical (3) IBS (irritable bowel syndrome): Code(s): K58.9 - Irritable bowel syndrome, unspecified Qualifiers: Irritable bowel syndrome type: with constipation Qualified Code(s): K58.1 - Irritable bowel syndrome with constipation (4) GERD (gastroesophageal reflux disease): Code(s): K21.9 - Gastro-esophageal reflux disease without esophagitis Qualifiers: Esophagitis presence: esophagitis presence not specified Qualified Code(s): K21.9 - Gastro-esophageal reflux disease without esophagitis Plan Patient will continue taking pantoprazole daily. Avoid dietary triggers and late night snacking. Staying upright for minimum 3 hours after meals discussed with patient. Continue MiraLax daily and Dulcolax. Increase fluid intake and activity to promote better bowel motility. Patient was encouraged weight loss. Patient gained almost 20 lb. Patient will talk to her PCP about starting GLP 1 if she does not want to go through with bariatric surgery. Mild elevation in liver enzymes next month. We will repeat them next visit. Will order ultrasound. Follow-up in 3 months, sooner on as needed basis. She is agreeable to this plan and verbalizes understanding of instructions. She was given the opportunity to ask questions and all questions answered. Thank you for allowing me to participate in her care Medications: New pantoprazole take one tablet half an hour before breakfast 40 mg PO DAILY 90 tabs 2RF K21.9 - Gastro-esophageal reflux disease without esophagitis Refilled docusate sodium (Stool Softener) 100 mg PO BID 180 caps 3RF polyethylene glycol 3350 (Miralax) 17 grams PO DAILY 100 ea 3RF Discontinued bisacodyl Discontinued Reason: Doctor's Order 10 mg (2 x 5 mg) PO BEDTIME 180 tabs 4RF Coding Level of Care Code Est Pt Level 3 (59564) Diagnoses Abdominal bloating with cramps R14.0; R10.9 Chronic idiopathic constipation K59.04 Irritable bowel syndrome with constipation K58.1 Irritable bowel syndrome type: with constipation Gastroesophageal reflux disease, unspecified whether esophagitis present K21.9 Esophagitis presence: esophagitis presence not specified Time Spent (min) 30 Comment 20 minutes spent with patient and additional 10 minutes spent reviewing her records
== END 2024-09-15 16:50 | disposition home or self-care (01) ==
PROVIDERS: Visit Provider Nurse Practitioner Family
DX: R14.0 Abdominal distension (gaseous) (principal); R10.9 Unspecified abdominal pain; K59.04 Chronic idiopathic constipation; K58.1 Irritable bowel syndrome with constipation; K21.9 Gastro-esophageal reflux disease without esophagitis
CPT/HCPCS: 99213

== ENCOUNTER → 2024-09-15 16:10 | Outpatient (BNVA) | payer MEDICAID, SELFPAY | PROVIDERS: Visit Provider Nurse Practitioner Family | DX: K59.04 Chronic idiopathic constipation (principal); K58.1 Irritable bowel syndrome with constipation; K21.9 Gastro-esophageal reflux disease without esophagitis; R14.0 Abdominal distension (gaseous); R10.9 Unspecified abdominal pain | CPT/HCPCS: 99212 ==

== ENCOUNTER 2024-10-07 16:24 | Outpatient (REF) | payer MEDICAID, SELFPAY ==
--- OUTSIDE RECORDS SUMMARY | 2024-10-07 16:38 | XMS_ITS | Encounter Summary ---
Author Organization [employer] Address [address] [place] [address] [address] [place] [address] Care Team Providers Care Senior Product Engineer Name Role Phone Christelle Rondon MD Primary Care Provide r Reason for Visit * Reason Onset Date Comments Medication Question 09/16/2024 Encounter Details Date Type Department Care Team ([facility] st Contact Info) Description 09/16/2024 Telephone [facility] [address], [place] [phone] Christelle Rondon MD [address] [place], [place] [phone] Medication Question Social History Tobacco Use Types Packs/Day Years Used Date Smoking Tobacco: Never Passive Smoke Exposure: Never Smokeless Tobacco: Never Depression Answer Date Recorded Patient Health Questionnaire-9 Score 0 04/05/2023 Housing Stability Answer Date Recorded What is your housing situation today? I have ceciliadacia simon 06/28/[address] you li ve. Do you have problems with any of the following? None of the above 06/28/2023 Food Insecurity Answer Date Recorded Within the past 12 months, y ou worried that your food would run out before you got money to buy more: Never True 11/28/2023 Within the past 12 months,th e food you bought just didn't last and you didn't have enough money to get more: Never True Transportation Answer Date Recorded In the past 12 months, has l ack of transportation kept you from medical appts, meetings, work or from getting things needed for daily living? Yes, it has kept me from non-medical meetings, work, or getting things that I need 11/28/2023 Utilities Answer Date Recorded In the past 12 months, has t he electric, gas, oil or water company threatened to shut off services in your home? Yes 11/28/2023 Depression Answer Date Recorded Patient Health Questionnaire-2 Score 0 04/05/2023 Comments Unknown Sex and Gender Information Value Date Recorded Sex Assigned at Female 07/10/2022 10:15 AM EDT Legal Sex Female 10:15 AM EDT Gender Identity Female 07/10/2022 10:15 AM EDT Sexual Orientation Straight 07/10/2022 10 :15 AM EDT documented as of this encounter Miscellaneous Notes * Telephone Encounter - Robyn Richard RN - 09/17/2024 8:50 AM EST Telephone call placed to pt regarding below message. Explained that she hasn't seen PCP since November[address] referral or order shots we need documentation that we discussed weight loss measure with her and need an updated weight in her chart. Pt agreeable to seeing PCP to start the process. Booked for 10/17 with PCP. Pt verbalized understanding and denied having any further questio ns or concerns at this time. * Telephone Encounter - Verena Abreu - 09/16/2024 4:21 PM EST Tc from pt stating she was advised by cdl [place] [facility] [place] and request a referral for weight management or script for weight loss injections. Contact pt at [phone] ([email or web address]) documented in this encounter Plan of Treatment Upcoming Encounters Date Type Department Care Team (Late st Contact Info) Description 10/17/2024 10:45 AM EST Office Visit [facility] [address], [place] [phone] Christelle Rondon MD [address] [place] [address] documented as of this encounter Visit Diagnoses Not on filedocumented in this encounter Additional Health Concerns Assessment Noted Time PHQ-9 Depression Total Score: 0 04/05/20 23 3:44 PM EDT documented as of this encounter Care Teams Senior Product Engineer Relationship Specialty Start Date End Date Christelle Rondon MD [address] [place] [address] PCP - General Family Medicine 10/11/18 documented as of this encounter
--- OUTSIDE RECORDS SUMMARY | 2024-10-07 16:38 | XMS_ITS | Encounter Summary ---
Author Organization [employer] Address [address] [place] [address] [address] [place] [address] Care Team Providers Care Development Officer Name Role Phone Christelle Rondon MD Primary Care Provide r Reason for Visit * Reason Comments Pre-visit Planning SDOH screening negat wilmer and tobacco screening negative Encounter Details Date Type Department Care Team ([facility] st Contact Info) Description 10/06/2024 Patient Outreach [facility] [address] [place], [place] [phone] Christelle Rondon MD [address] [place], [place] [phone] Pre-visit Planning (SDOH screening negative and tobacco screening negative) Social History Tobacco Use Types Packs/Day Years Used Date Smoking Tobacco: Never Passive Smoke Exposure: Never Smokeless Tobacco: Never Depression Answer Date Recorded Patient Health Questionnaire-9 Score 0 04/05/2023 Housing Stability Answer Date Recorded What is your housing situation today? I have cecilia simon 06/28/[address] you [...] to shut off services in your home? No 10/06/2024 Depression Answer Date Recorded Patient Health Questionnaire-2 Score 0 04/05/2023 Internet Access Answer Date Recorded Internet Access Q1 Yes 10/06/2024 Internet Access Q2 Not on file 10/06/2024 Comments Unknown Sex and Gender Information Value Date Recorded Sex Assigned at Female 07/10/2022 10:15 AM EDT Legal Sex Female 10:15 AM EDT Gender Identity Female 07/10/2022 10:15 AM EDT Sexual Orientation Straight 07/10/2022 10 :15 AM EDT documented as of this encounter Progress Notes * Candi Anamika - 10/06/2024 11:28 AM EST CC Candi placed successful outbound call to patient for pre-visit planning. Patient name and confirmed. Patient confirms appt date and time, and has transportation. Biggest concern for appointment at this time is seeking ozempic injection for wieght management Patient advised to bring to appointment a photo id and insurance card. Appropriate screenings completed in anticipation of appointment. documented in this encounter Plan of Treatment Upcoming Encounters Date Type Department Care Team (Late st Contact Info) Description 10/17/2024 10:45 AM EST Office Visit [facility] [address] [place] [address] Christelle Rondon MD [address] [place] [address] documented as of this encounter Visit Diagnoses Not on filedocumented in this encounter Additional Health Concerns Assessment Noted Time PHQ-9 Depression Total Score: 0 04/05/20 23 3:44 PM EDT documented as of this encounter Care Teams Development Officer Relationship Specialty Start Date End Date Christelle Rondon MD [address] [place] [address] PCP - General Family Medicine 10/11/18 documented as of this encounter
--- OUTSIDE RECORDS SUMMARY | 2024-10-07 16:39 | XMS_ITS | Clinical Summary ---
Author Organization [employer] Address [address] [place] [address] 7[address] [place] [address] Care Team Providers Care Proctologist Name Role Phone Christelle Rondon MD Primary Care Provide r Allergies No known active allergies Medications simethicone (Mylicon,Gas-X) 180 MG capsuleIndication s:Other constipation Take 1 capsule (180 mg) by mouth every 6 (six) hours if needed for flatulence. 90 capsule 2 4 Active oxybutynin XL (Ditropan XL) 5 MG 24 hr tablet Take 1 tablet (5 mg) by mouth Once per day. Do not crush, chew, or split. 90 tablet 1 4 04/28/20 25 Active Active Problems Problem Noted Date Diagnosed Date Decreased hearing of both ears 12/10/2023 Other constipation 12/06/2023 Encounter for screening mamm ogram for malignant neoplasm of breast 12/06/2023 BMI 40.0-44.9, adult 04/05/2023 Assessment & Plan (06/28/2023 3:39 PM EDT): Bariatric referral will be mail Chronic bilateral low back pain without sciatica 04/05/2023 Warts 04/05/2023 Anxiety 12/22/2022 Chronic right shoulder pain 12/22/2022 Colitis 12/22/2022 Diverticulitis 12/22/2022 Herpes zoster without complication 12/22/2022 Elevated LFTs 12/22/2022 Furuncle of buttock 12/22/2022 Hand pain 12/22/2022 Inguinal lymphadenopathy 12/22/2022 Multiple joint pain 12/22/2022 Assessment & Plan (06/28/2023 3:39 PM EDT): Rheumatology referral information will be send through mail Neck pain 12/22/2022 Prediabetes 12/22/2022 Assessment & Plan (06/28/2023 3:38 PM EDT): Today extensive discussion was done about life style modifications I advise healthy diet (low calorie) and cardiovascular exercise Recurrent urinary tract infection 12/22/2022 Skin tag 12/22/2022 Sigmoid diverticulosis 08/16/2022 Encounters Date Type Department Care Team Description 10/06/2024 Patient Outreach [facility] [address] [place] [phone] Christelle Rondon MD Pre-visit Planning (SDOH screening negative and tobacco screening negative) 09/16/[address] [address] Christelle Rondon MD Medication Question 08/11/2024 Patient Outreach [address] [address] Christelle Ronodn MD Transition Of Care (Tcm) 2024 Orders Only [facility] External Provider, [facility] from Last 3 Months Immunizations Name Administration Dates Next Due Influenza injectable quadrivalent preservative f ree 10/11/2018 Tdap 06/04/2021 Social History Tobacco Use Types Packs/Day Years Used Date Smoking Tobacco: Never Passive Smoke Exposure: Never Smokeless Tobacco: Never Tobacco Cessation:Counseling Given: Not Answered Depression Answer Date Recorded Patient Health Questionnaire-9 [...] Orientation Straight 07/10/2022 10 :15 AM EDT Last Filed Vital Signs Vital Sign Reading Time Taken Comments Blood Pressure 120/71 04/28/2024 12:29 PM EDT Pulse 78 04/28/2024 12:29 PM EDT Temperature 36.2 ??C (97.2 ??F) 04/28/2024 12:29 PM E DT Respiratory Rate 19 04/28/2024 12:29 PM EDT Oxygen Saturation 96% 04/28/2024 12:29 PM EDT Inhaled Oxygen Concentration - - Weight 114 kg (252 lb) 04/28/2024 12:29 PM EDT Height 157.5 cm (5' 2 ) 04/28/2024 12:29 PM EDT Body Mass Index 46.09 04/28/2024 12:29 PM EDT Plan of Treatment Upcoming Encounters Date Type Department Care Team (Late st Contact Info) Description 10/17/2024 10:45 AM EST Office Visit [facility] [address] [place], [place] [phone] Christelle Rondon MD [address] [place] [address] Health Maintenance Due Date Last Done Comments CT Colonography 1970 FIT DNA/Cologuard 1970 FIT 1970 FOBT 1970 HIV Screening 1970 Sigmoidoscopy 1970 Alcohol/Substance Use Screening 1982 Hepatitis C Screening 1988 Hepatitis B Vaccines (1 of 3 - 19+ 3-dose series) 1989 Zoster Vaccines (1 of 2) 2020 Mammogram 10/16/2020 10/16/2018 Pap Smear 01/01/2024 12/31/2020 Depression Screening 04/05/2024 04/05/2023, 04/05/20 COVID-19 Vaccine ( season) 2024 Influenza Vaccine (#1) 2024 10/11/2018 Diabetes: Hemoglobin A1C 09/08/2024 023, 01/18/2022, 06/14/2020, Additional history exists SDOH Screening 11/27/2024 11/28/2023 Tobacco Screening 04/28/2025 04/28/2024 Lipid Panel 06/14/2025 06/14/2020 Colonoscopy 10/05/2025 Colorectal Cancer Screening 10/05/2025 Cervical Cancer Screening 12/23/2025 HPV/Cotest 12/23/2025 12/23/2020 DTaP/Tdap/Td Vaccines (2 - Td or Tdap) 06/04/2031 06/04/2021 RSV Patients and Patients Aged 60 years or older (1 - 1-dose 75+ series) 2045 HIB Vaccines Aged Out No longer eligi ble based on patient's age to complete this topic HPV Vaccines Aged Out No longer eligi ble based on patient's age to complete this topic Hepatitis A Vaccines Aged Out No long er eligible based on patient's age to complete this topic IPV Vaccines Aged Out No longer eligi ble based on patient's age to complete this topic Meningococcal Vaccine Aged Out No marko gabbi eligible based on patient's age to complete this topic Pneumococcal Vaccine: Pediatrics (0 to 5 Years) and At-Risk Patients (6 to 64 Years) Aged Out No longer eligible based on patient's age to complete this topic RSV under 20 months Aged Out No longe r eligible based on patient's age to complete this topic Rotavirus Vaccines Aged Out No longer eligible based on patient's age to complete this topic Procedures Procedure Name Priority Date/Time Associated Diagnosis Comments XR CHEST 2 VIEWS Routine 08/14/2024 7:08 PM EST URINALYSIS, COMPLETE, WITH REFLEX TO CULTURE Routine 2024 5:43 PM EST HIGH SENSITIVITY TROPONIN I Routine 2024 4:47 PM EST MAGNESIUM Routine 2024 4:47 PM EST COMPREHENSIVE METABOLIC PANEL Routine 2024 4:47 PM EST CBC WITH AUTO DIFFERENTIAL Routine 2024 4:47 PM EST SARS COV2/INFLUENZA A/B AND RSV RNA QL NAAT Routine 2024 4:47 PM EST XR CHEST 2 VIEWS Routine 2024 4:39 PM EST HEMOGLOBIN A1C Routine 09/08/2023 7:37 AM EST Prediabetes THINPREP PAP Routine 12/31/2020 11:11 AM EDT HPV GENOTYPES 16,18/45 Routine 3:11 AM EDT LIPID PANEL, STANDARD Routine 06/14/2020 8:40 AM EDT BI MAMMOGRAM SCREENING BILATERAL Routine 10/16/2018 3:56 PM EST from Last 3 Months or Most Recently Relevant to Health Maintenance Results * XR Chest 2 Views (08/14/2024 7:08 PM EST) Only the most recent of2 resultswithin the time period is included. Anatomical Region Laterality Modality Chest Radiographic Germaine ging 08/14/2024 7:08 PM EST Narrative 08/14/2024 8:47 PM EST ? [facility] ?[address] ?[place] [address] ?XRay Report ? Signed ? Patient: Hill,Alba ?MR#: [id number] ? : 1970 ?Acct:[id number] ? Age/Sex: 54 / F ?ADM Date: 08/14/24 ? Loc: HO.ED ? Attending Dr: ? Ordering Physician: Zoila Orozco ?? Date of Service: 08/14/24 ?? Procedure(s): XR chest 2V ?? Accession Number(s): [id number] ? cc: [facility]; Zoila Orozco ? EXAMINATION: ?? XR CHEST ? CLINICAL INFORMATION: ?? chest pain, sob ? COMPARISON: ?? Chest x-ray on 2024 ? TECHNIQUE: ?? 2 views of the chest were obtained. ? FINDINGS: ?? No significant abnormality is noted involving the heart, lungs, ?? mediastinum, bony thorax or soft tissues. ? XR/XR chest 2V ?? IMPRESSION: ?? Unremarkable examination. ? Electronically signed by: ??Josie Osborne MD ??08/14/2024 08:44 PM EST ?? RP ? Dictated By: ?Josie Osborne MD ? Signed By: ?<Electronically signed by Josie Osborne MD in OV> ? 08/14/242043 ? DD/ 07 ? TD/TT: 08/14/241911 ? Manufacturing Plant Manager: PN ? Procedure Note Tran, Image - 08/14/[address] [address] XRay Report Signed Patient: Reina Hill#: [id number] : 1970Acct:[id number] Age/Sex: 54 / FADM Date: 08/14/24 Loc: HO.ED Attending Dr: Ordering Physician: Zoila Orozco Date of Service: 08/14/24 Procedure(s): XR chest 2V Accession Number(s): [id number] cc: [facility]; Zoila Orozco EXAMINATION: XR CHEST CLINICAL INFORMATION: chest pain, sob COMPARISON: Chest x-ray on 2024 TECHNIQUE: 2 views of the chest were obtained. FINDINGS: No significant abnormality is noted involving the heart, lungs, mediastinum, bony thorax or soft tissues. XR/XR chest 2V IMPRESSION: Unremarkable examination. Electronically signed by: Josie Osborne MD 08/14/2024 08:44 PM EST RP Dictated By: Josie Osborne MD Signed By: <Electronically signed by Josie Osborne MD in OV> 08/14/242043 DD/ 07 TD/TT: 08/14/241911 Manufacturing Plant Manager: PN [facility] External Provider IMG XR PROCEDURES Edited Result - Final * (ABNORMAL) Urinalysis, Complete, with Reflex to Culture (2024 5:43 PM EST) Color Urine Yellow [facility] Appearance Urine Clear [facility] PH 5.5 5.0 - 9.0 [facility] Glucose Urine UA Negative Negative mg/dL [facility] Urine Blood Moderate (2+)(A) Negative [facility] Specific [place] - Urine 1.020 1.005 - 1.025 [facility] Urine Protein Negative Neg-Trace mg/dL [facility] Urine Ketones Trace Negative mg/dL [facility] Nitrite Urine Negative Negative [facility] Leukocyte Esterase Urine Negative Negative [facility] RBC Urine 3-5(A) 0 - 2 /HPF [facility] Urine WBC 0-5 0 - 5 /HPF [facility] Urine Squamous Epithelial Cell 0-2 0 - 2 /HPF [facility] Urine Bacteria None Seen None Seen [facility] Hyaline Casts, Urine 0-2 0 - 2 /LPF [facility] 2024 5:43 PM EST 2024 5:48 PM EST Narrative [facility] - 2024 6:16 PM EST [id number], Clean Catch Generic External Data Provider LAB URINE ORDERAB LES Final Result Performing Organization Address [facility] Co de Phone Number [facility] [address] [place] [phone] * High Sensitivity Troponin I (2024 4:47 PM EST) [facility] TROPONIN I HIGH SENSITIVITY <2.7 <3.5 - 17.0 ng/L [facility] Comment:The [place] high sens itivity Troponin-I results should beused in conjunction with other diagnostic information suchas ECG, clinical observations and information, and patientsymptoms to aid in the diagnosis of VT. 2024 4:47 PM EST 2024 5:06 PM EST Generic External Data Provider LAB BLOOD ORDERAB LES Final Result Performing Organization Address [facility] Co de Phone Number [facility] [address] [place] [phone] * SARS-CoV-2 RNA, Influenza A/B, and RSV RNA, Ql NAAT (2024 4:47 PM EST) [facility] Influenza A PCR NEGATIVE Negative [facility] Influenza B PCR NEGATIVE Negative [facility] Resp Syncy Virus RNA Qual PCR NEGATIVE Negative [facility] SARS COV2 PCR NEGATIVE Negative [facility] Comment:All test results mus t be correlated with clinical findings.Negative results do not preclude SARS-CoV2, influenza Avirus, influenza B virus and/or RSV infectionand should not be used as the sole basis for treatment orother patient management decisions. Negative results must becombined with clinical observations, patient history, andepidemiological information.This test has not been evaluated for monitoring treatment ofinfection.This test has been authorized by the FDA under an EmergencyUse Authorization (EUA) for use by authorized laboratories.Testing performed on the GPNX GeneXpert utilizingreal-time RT-PCR.All SARS CoV2 and positive influenza A/B results arereported to [facility]. 2024 4:47 PM EST 2024 5:06 PM EST us Generic External Data Provider LAB MICROBIOLOGY - GENERAL ORDERABLES Final Result [facility] [address] [place] [address] [phone] * (ABNORMAL) CBC auto differential (2024 4:47 PM EST) White Blood Count 7.8 4.8 - 10.8 X10*3/uL [facility] Red Blood Count 4.25 4.20 - 5.50 X10*6/uL [facility] Hemoglobin 13.3 12.0 - 16.0 g/dl [facility] Hematocrit 40.0 37.0 - 47.0 % [facility] Mean Corpuscular Volume 94.1 80.0 - 98.0 fL [facility] Mean Corpuscular Hemoglobin 31.3 27.0 - 33.0 pg [facility] Mean Corpuscular HGB Conc 33.3 31.0 - 35.0 g/dl [facility] Red Cell Distribution Width 12.0 11.0 - 16.0 % [facility] Platelet Count 184 160 - 400 X10*3/uL [facility] Mean Platelet Volume 12.6(H) 9.4 - 12.3 fL [facility] Neutrophils Percent Auto 62.0 45 - 73 % [facility] Imm Gran Pct Auto 0.9(H) 0.0 - 0.4 % [facility] Lymphocytes Percent Auto 26.2 20 - 40 % [facility] Monocytes Percent Auto 8.4 2 - 11 % [facility] Eosinophils Percent Auto 2.2 0 - 4 % [facility] Basophils Percent Auto 0.3 0 - 2 % [facility] NRBC Pct Auto 0.0 0.0 - 0.2 /100WBC [facility] Neutrophils Absolute Auto 4.8 2.0 - 8.3 x10*3/uL [facility] Imm Gran Abs Auto 0.07(H) 0.00 - 0.03 X10*3/uL [facility] Lymphocytes Absolute Auto 2.0 1.2 - 4.9 X10*3/uL [facility] Monocytes Absolute Auto 0.7 0.1 - 1.2 X10*3/uL [facility] Eosinophils Absolute Auto 0.2 0.0 - 0.4 X10*3/uL [facility] Basophils Absolute Auto 0.0 0.0 - 0.2 X10*3/uL [facility] NRBC Abs Auto 0.000 0.0 - 0.012 X10*3/uL [facility] 2024 4:47 PM EST 2024 5:06 PM EST Generic External Data Provider LAB BLOOD ORDERAB LES Final Result Performing Organization Address [facility]/ZIP Co de Phone Number [facility] [address] [place] [phone] * Magnesium (2024 4:47 PM EST) Pathologist [facility] Magnesium 2.1 1.6 - 2.6 mg/dL [facility] 2024 4:47 PM EST 2024 5:06 PM EST Generic External Data Provider LAB BLOOD ORDERAB LES Final Result Performing Organization Address [facility] de Phone Number [facility] [address] [place] [phone] * (ABNORMAL) Comprehensive Metabolic Panel (2024 4:47 PM EST) Pathologist [facility] Sodium 141 135 - 145 mmol/L [facility] Potassium 4.3 3.3 - 5.1 mmol/L [facility] Chloride 106 96 - 108 mmol/L [facility] Carbon Dioxide 25 22 - 29 mmol/L [facility] Anion Gap 14 12 - 20 [facility] Urea Nitrogen (BUN) 11 9 - 16 mg/dL [facility] Creatinine, Serum 0.96 0.5 - 1.4 mg/dL [facility] Creatinine Clr Calc Pharmacy 77.0 [facility] Comment:Provided height and weight: 157.48 cm,107 kg.eGFR (calculated from the MDRD study equation) and eCrCl(calculated from the Cockcroft-Gault equation) are based ondifferent parameters and may not yield comparable results.If eCrCl result is absurd, please check patient'sheight/weight. Estimated Glomerular Filt Rate >60 [facility] Comment:Chronic Kidney Disea se: Estimated GFR < 60 mL/min/1.81d8Vhlwuf Kidney Disease: Estimated GFR < 15 mL/min/1.73m2 Glucose 109 60 - 115 mg/dL [facility] Calcium 9.9 8.4 - 10.2 mg/dL [facility] Bilirubin, Total 0.2 0.0 - 1.0 mg/dL [facility] Aspartate Amino Transferase 44(H) 5 - 31 U/L [facility] Alanine Aminotransferase 36(H) 0 - 31 U/L [facility] Total Protein 7.5 6.5 - 8.0 g/dL [facility] Albumin Level 4.0 3.5 - 5.0 g/dL [facility] Alkaline Phosphatase 96 39 - 117 U/L [facility] 2024 4:47 PM EST 2024 5:06 PM EST us Generic External Data Provider LAB BLOOD ORDERAB LES Final Result [facility] [address] [place] [phone] * Hemoglobin A1c (09/08/2023 7:37 AM EST) Hemoglobin A1c 5.8 <6.0 % [facility] Comment:Hemoglobin A1C Refer ence Range Adults: 4.8 - 6.0 % Non diabetic: < 6.0 % Goal: < 7.0 %Additional Action Suggested: > 8.0 %Note: Hemoglobin A1c results are invalid for patients with abnormal amounts of HbF. Blood transfusions may impact the HbA1c concentration in the patient sample. Estimated Average Glucose 120 mg/dL [facility] Comment:eAG = Estimated ave rage glucose which is %A1C expressed asaverage glucose, using the formula of the P0A-ZylgxhcHuypwfq Glucose study (ADAG), Diabetes Care, Vol.31,#8,Apr. 2007 Blood Venous blood specimen / Unknown 09/08/2023 7:37 AM EST 09/08/2023 7:37 AM EST Christelle Jorge MD LAB BLOOD ORDERABLES Final Result [facility] [address] [place] [phone] * THINPREP PAP (12/31/2020 11:11 AM EDT) Clinical Information: [facility] COMMENT SEE COMMENT [facility] Comment: EXPLANATORY NOTE: ? The Pap is a screening test for cervical cancer. It is ?? not a diagnostic test and is subject to false negative ?? and false positive results. It is most reliable when a ?? satisfactory sample, regularly obtained, is submitted ?? with relevant clinical findings and history, and when ?? the Pap result is evaluated along with historic and ?? current clinical information. ?? Retail Field Merchandiser : SEE COMMENT [facility] Comment: NSS, CT(ASCP) CT screening location: [address] ??[address] Interpretation/R esult: Negative for intraepithelial lesion or malignancy. [facility] LMP: N[facility] Prev. BX: NONE [facility] Prev. PAP: N[facility] SOURCE: NONE [facility] Statement Of Adequacy: SEE COMMENT [facility] Comment: Satisfactory for evaluation. Endocervical/transformation zone component present. Age and/or menstrual status not provided 12/31/2020 11:1 1 AM EDT Christelle Jorge MD LAB PATHOLOGY ORDERAB LES Final Result Performing Organization Address [facility] de Phone Number [facility] [address] * HPV GENOTYPES 16,18/45 (12/23/2020 3:11 AM EDT) HPV 16 RNA NOT DETECTED NOT DETECTED [facility] HPV 18/45 RNA NOT DETECTED NOT DETECTED [facility] Comment: Methodology: Parks Recreation Director Mediated Amplification The analytical performance characteristics of this assay have been determined by [employer]. The modifications have not been cleared or approved by the FDA. This assay has been validated pursuant to the CLIA regulations and is used for clinical purposes. NO COLLECTION DATE RECEIVED. WE HAVE USED THE DATE THE SPECIMEN WAS RECEIVED BY THIS LABORATORY THE COLLECTION DATE. IF THIS IS INCORRECT, PLEASE CONTACT CLIENT SERVICES. PHONE NUMBER: ?? 12/23/2020 3:11 AM EDT Christelle Jorge MD LAB BLOOD ORDERABLES Final Result Performing Organization Address [facility] Phone Number [facility] [address] * (ABNORMAL) LIPID PANEL, STANDARD (06/14/2020 8:40 AM EDT) Triglycerides 165(H) <150 mg/dL [facility] Triglycerides 165(H) <150 mg/dL [facility] LDL Cholesterol 162(H) mg/dL (calc) [facility] Comment: Reference range: <100 ?? Desirable range <100 mg/dL for primary prevention; ?? <70 mg/dL for patients with CHD or diabetic patients ?? with > or = 2 CHD risk factors. ?? LDL-C is now calculated using the Asim ?? calculation, which is a validated novel method providing ?? better accuracy than the Friedewald equation in the ?? estimation of LDL-C. ?? Arvind ALFARO et al. TINO. 2013;310(19): 5625-7026 ?? (http://education.Fanatics/faq/RCW976) Chol/HDLC Ratio 6.7(H) <5.0 (calc) [facility] LDL Cholesterol 162(H) mg/dL (calc) [facility] Comment: Reference range: <100 ?? Desirable range <100 mg/dL for primary prevention; ?? <70 mg/dL for patients with CHD or diabetic patients ?? with > or = 2 CHD risk factors. ?? LDL-C is now calculated using the Asim ?? calculation, which is a validated novel method providing ?? better accuracy than the Friedewald equation in the ?? estimation of LDL-C. ?? Arvind ALFARO et al. TINO. 2013;310(19): 7735-2090 ?? (http://education.Fanatics/faq/UII620) HDL Cholesterol 34(L) > OR = 50 mg/dL [facility] HDL Cholesterol 34(L) > OR = 50 mg/dL [facility] Non-HDL Cholesterol 193(H) <130 mg/dL (calc) [facility] Comment: For patients with diabetes plus 1 major ASCVD risk ?? factor, treating to a non-HDL-C goal of <100 mg/dL ?? (LDL-C of <70 mg/dL) is considered a therapeutic ?? option. Non-HDL Cholesterol 193(H) <130 mg/dL (calc) [facility] Comment: For patients with diabetes plus 1 major ASCVD risk ?? factor, treating to a non-HDL-C goal of <100 mg/dL ?? (LDL-C of <70 mg/dL) is considered a therapeutic ?? option. Cholesterol, Total 227(H) <200 mg/dL [facility] Chol/HDLC Ratio 6.7(H) <5.0 (calc) [facility] Cholesterol, Total 227(H) <200 mg/dL [facility] 06/14/2020 8:40 AM EDT us Christelle Jorge MD LAB BLOOD ORDERABLES Final Result [facility] [address] [place] [address], * DIGITAL BILATERAL SCREEN 1 (10/16/2018 3:56 PM EST) Anatomical Region Laterality Modality Breast Bilateral Mammography 10/16/2018 3:56 PM EST Narrative 10/16/2018 3:57 PM EST Refer to the Notes tab for result details [facility] Procedure: DIGITAL BILATERAL SCREEN 1 Procedure Note Provider, MD Quinton - 12/02/2022 Refer to the Notes tab for result details [facility] Procedure: DIGITAL BILATERAL SCREEN 1 Christelle Jorge MD IMG BI PROCEDURES Fin al Result from Last 3 Months or Most Recently Relevant to Health Maintenance [place] [address] [place] [address] C3 Care Teams Proctologist Relationship Specialty Start Date End Date Christelle Rondon MD [address] [place] [phone] PCP - General Family Medicine 10/11/18
--- OUTSIDE RECORDS SUMMARY | 2024-10-07 16:39 | XMS_ITS | Encounter Summary ---
Author Organization [facility] Address [address] [place] [address] [address] [place] [address] Care Team Providers Care Wood Tool Maker Name Role Phone Christelle Rondon MD Primary Care Provide r Reason for Visit * Reason Onset Date Comments Appointment Request 11/24/2022 Encounter Details Date Type Department Care Team (Late Contact Info) Description 11/24/2022 Telephone [facility] MED[facility]INE [address] [place] [phone] Christelle Rondon MD [address] [place] [phone] Appointment Request Social History Tobacco Use Types Packs/Day Years Used Date Smoking Tobacco: Never Assessed Comments Unknown Sex and Gender Information Value Date Recorded Sex Assigned at Female 07/10/2022 10:15 AM EDT Legal Sex Female 10:15 AM EDT Gender Identity Female 07/10/2022 10:15 AM EDT Sexual Orientation Straight 07/10/2022 10 :15 AM EDT documented as of this encounter Miscellaneous Notes * Telephone Encounter - Genet García Nadira - 11/24/2022 2:10 PM EDT Tc from pt requesting derm appt. Pt claims she never scheduled another appt since last. Please contact pt at [phone] documented in this encounter Plan of Treatment Upcoming Encounters Date Type Department Care Team (Late Contact Info) Description 10/17/2024 10:45 AM EST Office Visit [facility] [address] [place] [address] Christelle Rondon MD [address] [place], [place] [phone] documented as of this encounter Visit Diagnoses Not on filedocumented in this encounter Care Teams Wood Tool Maker Relationship Specialty Start Date End Date Christelle Rondon MD [address] [place], [place] [phone] PCP - General Family Medicine 10/11/18 Carmelita Condon Certified Midwife 11/29/23 02/29/24 documented as of this encounter
--- OUTSIDE RECORDS SUMMARY | 2024-10-07 16:39 | XMS_ITS | Encounter Summary ---
Author Organization [employer] Address [address] [place] [address] [address] [place] [address] Care Team Providers Care Interactive Project Manager Name Role Phone Christelle Rondon MD Primary Care Provide r Encounter Details Date Type Department Care Team (Late st Contact Info) Description 08/07/2023 Abstract [facility] [address] [place] [address] Marcella Reardon Social History Tobacco Use Types Packs/Day Years [...] got money to buy more: Never True 06/28/2023 Within the past 12 months,th e food you bought just didn't last and you didn't have enough money to get more: Never True Transportation Answer Date Recorded In the past 12 months, has l ack of transportation kept you from medical appts, meetings, work or from getting things needed for daily living? No 06/28/2023 Utilities Answer Date Recorded In the past 12 months, has t he electric, gas, oil or water company threatened to shut off services in your home? No 06/28/2023 Depression Answer Date Recorded Patient Health Questionnaire-2 Score 0 04/05/2023 Comments Unknown Sex and Gender Information Value Date Recorded Sex Assigned at Female 07/10/2022 10:15 AM EDT Legal Sex Female 10:15 AM EDT Gender Identity Female 07/10/2022 10:15 AM EDT Sexual Orientation Straight 07/10/2022 10 :15 AM EDT documented as of this encounter Plan of Treatment Upcoming Encounters Date Type Department Care Team (Late st Contact Info) Description 10/17/2024 10:45 AM EST Office Visit [facility] [address] [place] [address] Christelle Rondon MD [address] [place] [address] documented as of this encounter Visit Diagnoses Not on filedocumented in this encounter Additional Health Concerns Assessment Noted Time PHQ-9 Depression Total Score: 0 04/05/20 23 3:44 PM EDT documented as of this encounter Care Teams Interactive Project Manager Relationship Specialty Start Date End Date Christelle Rondon MD [address] [place] [phone] PCP - General Family Medicine 10/11/18 Carmelita Condon Medical Service Technician 11/29/23 02/29/24 documented as of this encounter
[2024-10-07 17:21] LABS: Appearance Urine Clear; Color Urine Yellow; Glucose Urine UA Negative (Negative); Leukocyte Esterase Urine Negative (Negative); Nitrite Urine Negative (Negative); PH 5.5 (5.0-9.0); Specific Gravity - Urine 1.025 (1.005-1.025); UMIC TRIGGER UA YES; Urine Blood Moderate (2+) (Negative); Urine Ketones Negative (Negative); Urine Protein Negative (Neg-Trace)
[2024-10-07 17:40] LABS: Bacteria Urine None Seen (None Seen); Hyaline Casts Urine 0-2 /LPF (0-2); RBC Urine 0-2 /HPF (0-2); WBC Urine 0-5 /HPF (0-5)
== END 2024-10-07 16:25 | disposition home or self-care (01) ==
LOC: HO.LAB 16:24
PROVIDERS: PCP Internal Medicine; Visit Provider Urology
DX: R32 Unspecified urinary incontinence (principal); R31.9 Hematuria, unspecified
CPT/HCPCS: 81001; 87086

== ENCOUNTER 2024-10-10 08:35 | Outpatient (AMB) | payer MEDICAID, SELFPAY ==
--- NOTE | 2024-10-10 08:42 | A.OFFVIS_ITS ---
Intake Visit Reasons: Urodynamics Chef Broiler Or Fry Required: Yes Chef Broiler Or Fry Language: Pressroom Foreman Name: Dylan [id number] Information Interpreted: non-clinical & clinical Allergies No Known Allergies [NKA] Allergy (Verified 09/15/24 16:16) Medication List - Last Reconciled 10/10/24 by Ingris Espinal MD benzonatate 100 mg PO BID PRN docusate sodium (Stool Softener) 100 mg PO BID hydrocortisone 2.5% (Proctosol HC) 1 appl MD BID-QID PRN incontinence pad, liner, disp (Pads For Women) As directed three daily ketorolac 10 mg PO TID PRN 5 days lactobacillus combination no.4 (Probiotic) 3,000 mmu cells PO DAILY loratadine (Claritin) 10 mg PO DAILY mirabegron ER (Myrbetriq) 50 mg PO DAILY ondansetron HCl 4 mg PO Q8H PRN oxybutynin chloride ER 5 mg PO DAILY pantoprazole 40 mg PO DAILY polyethylene glycol 3350 (Miralax) 17 grams PO DAILY simethicone 180 mg PO BID PRN tramadol 50 mg PO Q6H PRN HPI Comments Details: 10/10/24--Yoon is here for urodynamics. The patient has complaints of urinary incontinence. Interpretation: During the filling phase there was normal sensation, with strong desire at 184 mL bladder capacity was less than average, the patient felt that she was at [facility] at 220 mL Leakage was observed during cough. Findings consistent with less than average functional bladder capacity. Objective stress was documented. EMG- Appropriate changes in the waveforms were noted through out the study. Discussed urinary leakage can be related to pelvic floor muscles weakness and/or bladder spasms. Treatment options discussed for OAB included Behavioral modification, anticholinergics/antimuscarinics, neuromodulation, bladder botox injection. The patient avoids caffeine and is doing kegel exercises. 08/13/24--Yoon is a 54-year-old Welsh-speaking female who is here for evaluation due to urinary incontinence. She states that she leaks all the time including with coughing sneezing. She wears pads daily. She states that a few years ago she was treated with a bladder medication that worked initially and then stopped working. Comorbidity nicotine use, obesity. Discussed further evaluation with urodynamics. Review of chart CTAP-w IV contrast- bilateral renal cysts otherwise kidneys within normal limits. The patient complains of back pain I have reassured her that the renal cysts would not be a cause back pain. Labs: Urinalysis - reviewed - significant for microscopic hematuria. PFSH Medical History Hx of sigmoidoscopy Post-menopause Diverticulosis Diverticulitis Family history of coronary artery bypass graft Smoking Unstable angina pectoris Chronic idiopathic constipation Obesity (BMI 30-39.9) Cigarette smoker Screening for colon cancer Hepatic steatosis Surgical History H/O colonoscopy Morbid obesity Hx of tonsillectomy Family History Brother Cancer Father Diabetes Mother Diabetes HTN (hypertension) Heart problem Family/Other Diabetes Social History Household Members: Children Housing: House Do you presently have visiting nurse or other home services: No Alcohol intake: never Patient Tobacco Use Status: Never used Tobacco Cigarette Packs Per Day: 0.5 Cigarettes Per Day: 10.0 Second Hand Smoke Exposure: No Review of Systems Const All systems reviewed & are unremarkable except as noted in HPI and below Reports no additional complaints Eyes Reports no additional complaints ENT Reports no additional complaints Card Reports no additional complaints Resp Reports no additional complaints GI Reports no additional complaints Reports as per HPI Musc Reports no additional complaints Skin/Breast Reports system reviewed and no additional complaints, except as documented Neuro Reports no additional complaints Psych Reports no additional complaints Endo Reports no additional complaints Amilcar/Lymph Reports no additional complaints Aller/Immun Reports no additional complaints Office Procedures Urodynamic Studies Consent Discussed risk and benefit or proposed procedure with the patient. Information consent for procedure given to the patient. Discussed technical aspects, risks, benefits and alternatives in full. Addressed all of the patient's questions and concerns regarding the procedure. The patient demonstrated knowledge and understanding. They wish to proceed with this procedure. Preparation The patient was prepped in the usual manner. A yarn polishing machine operator was present and in the room. Genitalia was prepped with betadine solution in a sterile manner. Procedure Complex Uroflow Complex uroflow performed by: Ingris Espinal Maximum urinary flow rate (mL/second): 12 Voiding time (seconds): 6.7 Voided volume (mL): 39 Residual urine (mL): 0 Cystometrogram Vaginal/rectal catheter type: vaginal First sensation at (mL): 61 mL First desire at (mL): 95 mL Strong desire to void occured at (mL): 184 mL Strong desire detrussor pressure (cm H2O): 0.4 Maximum fill (mL): 220 mL Voided with max detrussor pressure of (cm H2O): 6.9 Maximum flow rate (mL/second): 9.2 mL/s Prep: The patient was prepped in the usual manner. A yarn polishing machine operator was present and in the room. Genitalia was prepped with betadine solution in a sterile manner. 48898-Mduspqoynlubnr w/ [facility] OFFICER 45408-Tunyobd-Pzszwzulubyt First 41042-Ylhi/Urinary Muscle Study 36322-Hcmtu-Wdxdjzqui Pressure Test Procedure code (CPT) selection complete Office Meds nitrofurantoin monohydrate/macrocrystals 100 mg capsule Performing Provider: Ingris Espinal MD [facility] Administered by: Jr Kim LPN on 10/10/24 08:42 Dose Route Admin Location Dispensed Lot Number Expiration Date [facility] Starch Crab 100 mg PO 1 cap Assessment & Plan Assessment & Plan (1) OAB (overactive bladder): Code(s): N32.81 - Overactive bladder Category: Medical (2) Pelvic floor weakness: Code(s): N81.89 - Other female genital prolapse Category: Medical (3) CHRIS (stress urinary incontinence, female): Code(s): N39.3 - Stress incontinence (female) (male) Category: Medical (4) Mixed stress and urge urinary incontinence: Code(s): N39.46 - Mixed incontinence Category: Medical Plan Continue with Behaviorial modification, Kegels, Myrbetriq 50 mg daily. Orders: Orders AMB Urodynamics Studies Today R31.9 - Hematuria, unspecified, R32 - Unspecified urinary incontinence Medications: New mirabegron ER (Myrbetriq) 50 mg PO DAILY 30 tabs 2RF Patient Instructions: The patient had an opportunity to ask questions regarding treatment plan. The patient expressed understanding and agreement with the above treatment plan. The patient is aware they should contact our office by phone for worsening of their current condition or the appearance of new symptoms. Compliance is encouraged with any medications and followup testing that is ordered. It is a privilege to be allowed the opportunity to participate in the urologic care of your patient. If you have any questions or concerns regarding treatment for the above conditions please do not hesitate to contact me. The office telephone contact is [phone]. This note is constructed in part using voice recognition software. While every effort has been made to ensure accuracy production control expediter errors may have been included. Yours sincerely, Ingris Espinal MD Coding Level of Care Code Est Pt Level 4 (40068) Diagnoses OAB (overactive bladder) N32.81 Pelvic floor weakness N81.89 CHRIS (stress urinary incontinence, female) N39.3 Mixed stress and urge urinary incontinence N39.46 CPT Codes Urodynamic Studies - CPT: 89169-Dnrbykieoyhaka w/ [facility] OFFICER ([id number]) Urodynamic Studies - CPT: 42421-Xpsaaip-Vqxylyjhpjih First ([id number]) Urodynamic Studies - CPT: 32389-Abqi/Urinary Muscle Study ([id number]) Urodynamic Studies - CPT: 70044-Atatq-Whgsgcnjf Pressure Test ([id number])
--- OUTSIDE RECORDS SUMMARY | 2024-10-10 08:45 | XMS_ITS | Encounter Summary ---
Author Organization [employer] Address [address] [place] [address] 7 [place] [address] Care Team Providers Care Expressive Music Therapist Name Role Phone Christelle Rondon MD Primary Care Provide r Reason for Visit * Reason Onset Date Comments Medication Question 09/16/2024 Encounter Details Date Type Department Care Team ([facility] st Contact Info) Description 09/16/2024 Telephone [facility] [address] [place], [place] [phone] Christelle Rondon MD [address] [place], [place] [phone] Medication Question Social History Tobacco Use Types [...] from pt stating she was advised by ear nose and throat specialist at [facility] to contact PCP and request a referral for weight management or script for weight loss injections. Contact pt at [phone] ([email or web address]) documented in this encounter Plan of Treatment Upcoming Encounters Date Type Department Care Team (Late st Contact Info) Description 10/17/2024 10:45 AM EST Office Visit [facility] [address] [place], [place] [phone] Christelle Rondon MD [address] [place] [address] documented as of this encounter Visit Diagnoses Not on filedocumented in this encounter Additional Health Concerns Assessment Noted Time PHQ-9 Depression Total Score: 0 04/05/20 23 3:44 PM EDT documented as of this encounter Care Teams Expressive Music Therapist Relationship Specialty Start Date End Date Christelle Rondon MD [address] [place] [address] PCP - General Family Medicine 10/11/18 documented as of this encounter
--- OUTSIDE RECORDS SUMMARY | 2024-10-10 08:45 | XMS_ITS | Encounter Summary ---
Author Organization [employer] Address [address] [place] [address] [address] [place] [address] Care Team Providers Care Spark Plug Assembler Name Role Phone Christelle Rondon MD Primary Care Provide r Encounter Details Date Type Department Care Team (Late st Contact Info) Description 10/07/2024 Orders Only GENERIC EXTERNAL DATA DEPARTMENT Provider, Generic External Data Social History Tobacco Use Types Packs/Day Years [...] Description 10/17/2024 10:45 AM EST Office Visit [facility] [address] [place] [address] Christelle Rondon MD [address] [place], [place] [phone] documented as of this encounter Procedures Procedure Name Priority Date/Time Associated Diagnosis Comments URINALYSIS, COMPLETE Routine 10/07/2024 4:35 PM EST CULTURE, URINE, ROUTINE Routine 10/07/2024 4:35 PM EST documented in this encounter Results * Culture, Urine, Routine (10/07/2024 4:35 PM EST) Urine Urine specimen obtained by clean catch procedure / Unknown 10/07/2024 4:35 PM EST 10/07/2024 5:06 PM EST Comment:UACC Narrative [facility] - 10/09/2024 10:18 AM EST Urine Culture Report Result Urine Culture 10,000 to 50,000 cfu/ml Urine Culture Mixed bacterial royce characteristic of Urine Culture urogenital contamination. Specimen Source: Urine clean catch us Generic External Data Provider LAB MICROBIOLOGY - GENERAL ORDERABLES Final Result [facility] [address] [place] [address] [phone] * (ABNORMAL) Urinalysis Complete (10/07/2024 4:35 PM EST) Color Urine Yellow [facility] Appearance Urine Clear [facility] PH 5.5 5.0 - 9.0 [facility] Glucose Urine UA Negative Negative mg/dL [facility] Urine Blood Moderate (2+)(A) Negative [facility] Specific [place] - Urine 1.025 1.005 - 1.025 [facility] Urine Protein Negative Neg-Trace mg/dL [facility] Urine Ketones Negative Negative mg/dL [facility] Nitrite Urine Negative Negative [facility] Leukocyte Esterase Urine Negative Negative [facility] RBC Urine 0-2 0 - 2 /HPF [facility] Urine WBC 0-5 0 - 5 /HPF [facility] Urine Squamous Epithelial Cell 3-5 0 - 2 /HPF [facility] Urine Bacteria None Seen None Seen [facility] Hyaline Casts, Urine 0-2 0 - 2 /LPF [facility] 10/07/2024 4:35 PM EST 10/07/2024 5:06 PM EST us Generic External Data Provider LAB URINE ORDERAB LES Final Result [facility] [address] [place] [address] [phone] documented in this encounter Visit Diagnoses Not on filedocumented in this encounter Additional Health Concerns Assessment Noted Time PHQ-9 Depression Total Score: 0 04/05/20 23 3:44 PM EDT documented as of this encounter Care Teams Spark Plug Assembler Relationship Specialty Start Date End Date Christelle Rondon MD [address] [place] [phone] PCP - General Family Medicine 10/11/18 documented as of this encounter
--- OUTSIDE RECORDS SUMMARY | 2024-10-10 08:45 | XMS_ITS | Encounter Summary ---
Author Organization [employer] Address [address] [place] [address] [address] [place] [address] Care Team Providers Care Ear Nose And Throat Specialist Name Role Phone Christelle Rondon MD Primary Care Provide r Reason for Visit * Reason Comments Pre-visit Planning SDOH screening negat wilmer and tobacco screening negative Encounter Details Date Type Department Care Team ([facility] st Contact Info) Description 10/06/2024 Patient Outreach [facility] [address] [place], [place] [phone] Christelle Rondon MD [address] [place], [place] [phone] Pre-visit Planning (SDOH screening negative and tobacco [...] 10:45 AM EST Office Visit [facility] [address] [place] [address] Christelle Rondon MD [address] [place] [address] documented as of this encounter Visit Diagnoses Not on filedocumented in this encounter Additional Health Concerns Assessment Noted Time PHQ-9 Depression Total Score: 0 04/05/20 23 3:44 PM EDT documented as of this encounter Care Teams Ear Nose And Throat Specialist Relationship Specialty Start Date End Date Christelle Rondon MD [address] [place] [address] PCP - General Family Medicine 10/11/18 documented as of this encounter
--- OUTSIDE RECORDS SUMMARY | 2024-10-10 08:45 | XMS_ITS | Clinical Summary ---
Author Organization [employer] Address [address] [place] [address] [address] [place] [address] Care Team Providers Care Debt Management Counselor Name Role Phone Christelle Rondon MD Primary [...] Encounters Date Type Department Care Team Description 10/07/2024 Orders Only GENERIC EXTERNAL DATA DEPARTMENT Provider, [facility] External Data 10/06/2024 Patient Outreach [facility] MEDICINE [address] [place] [phone] Christelle Rondon MD Pre-visit Planning (SDOH screening negative and tobacco screening negative) 09/16/[address] [address] Christelle Rondon MD Medication Question 08/11/2024 Patient Outreach [address] [address] Christelle Rondon MD Transition Of Care (Tcm) 2024 Orders Only [facility] External Provider, [facility] from Last 3 Months Immunizations Name [...] Office Visit [facility] [address] [place] [address] Christelle Rondon MD [address] [place] [address] Health Maintenance Due Date Last Done Comments CT Colonography 1970 FIT DNA/Cologuard 1970 FIT 1970 FOBT 1970 HIV Screening 1970 Sigmoidoscopy 1970 Alcohol/Substance Use Screening 1982 Hepatitis C Screening 1988 Hepatitis B Vaccines (1 of 3 - 19+ 3-dose series) 1989 Pneumococcal Vaccine: 50+ Years (1 of 1 - PCV) 2020 Zoster Vaccines (1 of 2) 2020 Mammogram 10/16/2020 10/16/2018 Pap Smear 01/01/2024 12/31/2020 Depression Screening 04/05/2024 04/05/2023, 04/05/20 23 COVID-19 Vaccine ( - season) 2024 Influenza Vaccine (#1) 2024 10/11/2018 [...] URINE, ROUTINE Routine 10/07/2024 4:35 PM EST XR CHEST 2 VIEWS Routine 08/14/2024 7:08 [...] Recently Relevant to Health Maintenance Results * (ABNORMAL) Urinalysis Complete (10/07/2024 4:35 PM EST) Color Urine Yellow [facility] Appearance Urine Clear [facility] PH 5.5 5.0 - 9.0 [facility] Glucose Urine UA Negative Negative mg/dL [facility] Urine Blood Moderate (2+)(A) Negative [facility] Specific [place] - Urine 1.025 1.005 - 1.025 [facility] Urine Protein Negative Neg-Trace mg/dL [facility] Urine Ketones Negative Negative mg/dL [facility] Nitrite Urine Negative Negative [facility] Leukocyte Esterase Urine Negative Negative [facility] RBC Urine 0-2 0 - 2 /HPF [facility] Urine WBC 0-5 0 - 5 /HPF [facility] Urine Squamous Epithelial Cell 3-5 0 - 2 /HPF [facility] Urine Bacteria None Seen None Seen [facility] Hyaline Casts, Urine 0-2 0 - 2 /LPF [facility] 10/07/2024 4:35 PM EST 10/07/2024 5:06 PM EST Generic External Data Provider LAB URINE ORDERAB LES Final Result Performing Organization Address [facility] Co de Phone Number [facility] [address] [place] [phone] * Culture, Urine, Routine (10/07/2024 4:35 PM EST) Urine Urine specimen obtained by clean catch procedure / Unknown 10/07/2024 4:35 PM EST 10/07/2024 5:06 PM EST Comment:UACC Narrative [facility] - 10/09/2024 10:18 AM EST Urine Culture Report Result Urine Culture 10,000 to 50,000 cfu/ml Urine Culture Mixed bacterial royce characteristic of Urine Culture urogenital contamination. Specimen Source: Urine clean catch us Generic External Data Provider LAB MICROBIOLOGY - GENERAL ORDERABLES Final Result Performing Organization Address City/[facility]/ZIP Co de Phone Number [facility] [address] [place] [phone] * XR Chest 2 Views (08/14/2024 7:08 PM EST) Only the most recent of2 resultswithin the time period is included. Anatomical Region Laterality Modality Chest Radiographic Germaine ging 08/14/2024 7:08 PM EST Narrative 08/14/2024 8:47 PM EST ? [facility] ?[address] ?[place] [address] ?XRay Report ? Signed ? Patient: Hill,Alba ?MR#: [id number] ? : 1970 ?Acct:[id number] ? Age/Sex: 54 / F ?ADM Date: 08/14/24 ? Loc: HO.ED ? Attending Dr: ? Ordering Physician: Zoila Orozco ?? Date of Service: 08/14/24 ?? Procedure(s): XR chest 2V ?? Accession Number(s): [id number] ? cc: [facility]; Zoila Orozco ? EXAMINATION: ?? XR [...] ? DD/ 07 ? TD/TT: 08/14/241911 ? J2Ee Programmer: PN ? Procedure Note Edgar Mayfield - 08/14/[address] [address] XRay Report Signed Patient: Reina Hill#: [id number] : 1970Acct:[id number] Age/Sex: 54 / FADM Date: 08/14/24 Loc: HO.ED Attending Dr: Ordering Physician: Zoila Orozco Date of Service: 08/14/24 Procedure(s): XR chest 2V Accession Number(s): [id number] cc: [facility]; Zoila Orozco EXAMINATION: XR CHEST CLINICAL INFORMATION: chest pain, sob COMPARISON: Chest x-ray on 2024 TECHNIQUE: 2 views of the chest were obtained. FINDINGS: No significant abnormality is noted involving the heart, lungs, mediastinum, bony thorax or soft tissues. XR/XR chest 2V IMPRESSION: Unremarkable examination. Electronically signed by: Josie Osborne MD 08/14/2024 08:44 PM EST Dictated By: Josie Osborne MD Signed By: <Electronically signed by Josie Osborne MD in OV> 08/14/242043 DD/ 07 TD/TT: 08/14/241911 J2Ee Programmer: PN [facility] External Provider IMG XR PROCEDURES Edited Result - Final * (ABNORMAL) Urinalysis, Complete, with Reflex to Culture (2024 5:43 PM EST) Color Urine Yellow [facility] Appearance Urine Clear [facility] PH 5.5 5.0 - 9.0 [facility] Glucose Urine UA Negative Negative mg/dL [facility] Urine Blood Moderate (2+)(A) Negative [facility] Specific [place] - Urine 1.020 1.005 - 1.025 [facility] Urine Protein Negative Neg-Trace mg/dL [facility] Urine Ketones Trace Negative mg/dL [facility] Nitrite Urine Negative Negative [facility] Leukocyte Esterase Urine Negative Negative [facility] RBC Urine 3-5(A) 0 - 2 /HPF [facility] Urine WBC 0-5 0 - 5 /HPF [facility] Urine Squamous Epithelial Cell 0-2 0 - 2 /HPF [facility] Urine Bacteria None Seen None Seen [facility] Hyaline Casts, Urine 0-2 0 - 2 /LPF [facility] 2024 5:43 PM EST 2024 5:48 PM EST Narrative [facility] - 2024 6:16 PM EST [id number], Clean Catch Generic External Data Provider LAB URINE ORDERAB LES Final Result Performing Organization Address [facility] Phone Number [facility] [address] [place] [phone] * High Sensitivity Troponin I (2024 4:47 PM EST) Pathologist [facility] TROPONIN I HIGH SENSITIVITY <2.7 <3.5 - 17.0 ng/L [facility] Comment:The [place] high sens itivity Troponin-I results should beused in conjunction with other diagnostic information suchas ECG, clinical observations and information, and patientsymptoms to aid in the diagnosis of [place]. 2024 4:47 PM EST 2024 5:06 PM EST Generic External Data Provider LAB BLOOD ORDERAB LES Final Result Performing Organization Address [facility] Phone Number [facility] [address] [place] [phone] * SARS-CoV-2 RNA, Influenza A/B, and RSV RNA, Ql NAAT (2024 4:47 PM EST) Pathologist [facility] Influenza A PCR NEGATIVE Negative [facility] Influenza B PCR NEGATIVE Negative [facility] Resp Syncy Virus RNA Qual PCR NEGATIVE Negative [facility] SARS COV2 PCR NEGATIVE Negative [facility] Comment:All test results mus t [...] use by authorized laboratories.Testing performed on the [employer] GeneXpert utilizingreal-time RT-PCR.All SARS CoV2 and positive influenza A/B results arereported to [facility]. 2024 4:47 PM EST 2024 5:06 PM EST us Generic External Data Provider LAB MICROBIOLOGY - GENERAL ORDERABLES Final Result [facility] [address] [place] [phone] * (ABNORMAL) CBC auto differential (2024 4:47 PM EST) White Blood Count 7.8 4.8 - 10.8 X10*3/uL [facility] Red Blood Count 4.25 4.20 - 5.50 X10*6/uL [facility] Hemoglobin 13.3 12.0 - 16.0 g/dl [facility] Hematocrit 40.0 37.0 - 47.0 % [facility] Mean Corpuscular Volume 94.1 80.0 - 98.0 fL [facility] Mean Corpuscular Hemoglobin 31.3 27.0 - 33.0 pg [facility] Mean Corpuscular HGB Conc 33.3 31.0 - 35.0 g/dl [facility] Red Cell Distribution Width 12.0 11.0 - 16.0 % [facility] Platelet Count 184 160 - 400 X10*3/uL [facility] Mean Platelet Volume 12.6(H) 9.4 - 12.3 fL [facility] Neutrophils Percent Auto 62.0 45 - 73 % [facility] Imm Gran Pct Auto 0.9(H) 0.0 - 0.4 % [facility] Lymphocytes Percent Auto 26.2 20 - 40 % [facility] Monocytes Percent Auto 8.4 2 - 11 % [facility] Eosinophils Percent Auto 2.2 0 - 4 % [facility] Basophils Percent Auto 0.3 0 - 2 % [facility] NRBC Pct Auto 0.0 0.0 - 0.2 /100WBC [facility] Neutrophils Absolute Auto 4.8 2.0 - 8.3 x10*3/uL [facility] Imm Gran Abs Auto 0.07(H) 0.00 - 0.03 X10*3/uL [facility] Lymphocytes Absolute Auto 2.0 1.2 - 4.9 X10*3/uL [facility] Monocytes Absolute Auto 0.7 0.1 - 1.2 X10*3/uL [facility] Eosinophils Absolute Auto 0.2 0.0 - 0.4 X10*3/uL [facility] Basophils Absolute Auto 0.0 0.0 - 0.2 X10*3/uL [facility] NRBC Abs Auto 0.000 0.0 - 0.012 X10*3/uL [facility] 2024 4:47 PM EST 2024 5:06 PM EST us Generic External Data Provider LAB BLOOD ORDERAB LES Final Result Performing Organization Address [facility]/ZIP Co de Phone Number [facility] [address] [place] [phone] * Magnesium (2024 4:47 PM EST) Magnesium 2.1 1.6 - 2.6 mg/dL [facility] 2024 4:47 PM EST 2024 5:06 PM EST Generic External Data Provider LAB BLOOD ORDERAB LES Final Result Performing Organization Address [facility]/ZIP Co de Phone Number [facility] [address] [place] [phone] * (ABNORMAL) Comprehensive Metabolic Panel (2024 4:47 PM EST) Sodium 141 135 - 145 mmol/L [facility] Potassium 4.3 3.3 - 5.1 mmol/L [facility] Chloride 106 96 - 108 mmol/L [facility] Carbon Dioxide 25 22 - 29 mmol/L [facility] Anion Gap 14 12 - 20 [facility] Urea Nitrogen (BUN) 11 9 - 16 mg/dL [facility] Creatinine, Serum 0.96 0.5 - 1.4 mg/dL [facility] Creatinine Clr Calc Pharmacy 77.0 [facility] Comment:Provided height and weight: 157.48 cm,107 kg.eGFR (calculated from the MDRD study equation) and eCrCl(calculated from the Cockcroft-Gault equation) are based ondifferent parameters and may not yield comparable results.If eCrCl result is absurd, please check patient'sheight/weight. Estimated Glomerular Filt Rate >60 [facility] Comment:Chronic Kidney Disea se: Estimated GFR < 60 mL/min/1.63p0Shxeyq Kidney Disease: Estimated GFR < 15 mL/min/1.73m2 Glucose 109 60 - 115 mg/dL [facility] Calcium 9.9 8.4 - 10.2 mg/dL [facility] Bilirubin, Total 0.2 0.0 - 1.0 mg/dL [facility] Aspartate Amino Transferase 44(H) 5 - 31 U/L [facility] Alanine Aminotransferase 36(H) 0 - 31 U/L [facility] Total Protein 7.5 6.5 - 8.0 g/dL [facility] Albumin Level 4.0 3.5 - 5.0 g/dL [facility] Alkaline Phosphatase 96 39 - 117 U/L [facility] 2024 4:47 PM EST 2024 5:06 PM EST us Generic External Data Provider LAB BLOOD ORDERAB LES Final Result [facility] [address] [place] [phone] * Hemoglobin A1c (09/08/2023 7:37 AM EST) Hemoglobin A1c 5.8 <6.0 % [facility] Comment:Hemoglobin A1C Refer ence Range Adults: 4.8 - 6.0 % Non diabetic: < 6.0 % Goal: < 7.0 %Additional Action Suggested: > 8.0 %Note: Hemoglobin A1c results are invalid for patients with abnormal amounts of HbF. Blood transfusions may impact the HbA1c concentration in the patient sample. Estimated Average Glucose 120 mg/dL [facility] Comment:eAG = Estimated ave rage glucose which is %A1C expressed asaverage glucose, using the formula of the A8C-DcvphduUfldthw Glucose study (ADAG), Diabetes Care, Vol.31,#8,Apr. 2007 Blood Venous blood specimen / Unknown 09/08/2023 7:37 AM EST 09/08/2023 7:37 AM EST us Christelle Jorge MD LAB BLOOD ORDERABLES Final Result [facility] [address] [place] [phone] [phone] * THINPREP PAP (12/31/2020 11:11 AM EDT) Clinical Information: NONE GIVEN [facility] COMMENT SEE COMMENT [facility] [...] historic and ?? current clinical information. ?? Curriculum Writer : SEE COMMENT [facility] Comment: NSS, CT(ASCP) CT screening location: [address] ??[address] Interpretation/R esult: Negative for intraepithelial lesion or malignancy. [facility] LMP: NONE [facility]IVEN [facility] Prev. BX: NONE [facility]IVEN [facility] Prev. PAP: NONE GIVEN [facility] SOURCE: NONE [facility]IVEN [facility] Statement Of Adequacy: SEE COMMENT [facility] Comment: Satisfactory for evaluation. Endocervical/transformation zone component present. Age and/or menstrual status not provided 12/31/2020 11:1 1 AM EDT Christelle Jorge MD LAB PATHOLOGY ORDERAB LES Final Result Performing Organization Address [facility] de Phone Number [facility] [address] [place] [address], * HPV GENOTYPES 16,18/45 (12/23/2020 3:11 AM EDT) Pathologist [facility] HPV 16 RNA NOT DETECTED NOT DETECTED [facility] HPV 18/45 RNA NOT DETECTED NOT DETECTED [facility] Comment: Methodology: Plant Custodian Mediated Amplification The analytical performance characteristics of this assay have been determined by [email or web address]. The modifications have not been cleared or [...] BLOOD ORDERABLES Final Result Performing Organization Address [facility] Co de Phone Number [facility] [address] [place] [address], * (ABNORMAL) LIPID PANEL, STANDARD (06/14/2020 8:40 [...] ?? LDL-C is now calculated using the Arvind-Lai ?? calculation, which is a validated novel method providing ?? better accuracy than the Friedewald equation in the ?? estimation of LDL-C. ?? Arvind SS et al. TINO. 2013;310(19): 5770-2317 ?? (http://CompanyLoop/faq/LCN244) Chol/HDLC Ratio 6.7(H) <5.0 (calc) [facility] LDL Cholesterol 162(H) mg/dL (calc) [facility] Comment: Reference range: <100 ?? Desirable range <100 mg/dL for primary prevention; ?? <70 mg/dL for patients with CHD or diabetic patients ?? with > or = 2 CHD risk factors. ?? LDL-C is now calculated using the Arvind-Lai ?? calculation, which is a validated novel method providing ?? better accuracy than the Friedewald equation in the ?? estimation of LDL-C. ?? Arvind SS et al. TINO. 2013;310(19): 9807-1713 ?? (http://Join The Wellness Team.[employer]/faq/QDJ512) HDL Cholesterol 34(L) > OR = 50 [...] Jorge MD LAB BLOOD ORDERABLES Final Result [facility] [address] * DIGITAL BILATERAL SCREEN 1 (10/16/2018 3:56 PM EST) Anatomical Region Laterality Modality Breast Bilateral Mammography 10/16/2018 3:56 PM EST Narrative 10/16/2018 3:57 PM EST Refer to the Notes tab for result details [facility] Procedure: DIGITAL BILATERAL SCREEN 1 Procedure Note Provider, MD Quinton - 12/02/2022 Refer to the Notes tab for result details [facility] Procedure: DIGITAL BILATERAL SCREEN 1 us Christelle Jorge MD IMG BI PROCEDURES Fin al Result from Last 3 Months or Most Recently Relevant to Health Maintenance [facility] Care Teams Debt Management Counselor Relationship Specialty Start Date End Date Christelle Rondon MD [address] [place] [phone] PCP - General Family Medicine 10/11/18
--- OUTSIDE RECORDS SUMMARY | 2024-10-10 08:46 | XMS_ITS | Encounter Summary ---
Author Organization [employer] Address [address] [place] [address] [address] [place] [address] Care Team Providers Care Snagger Name Role Phone Christelle Rondon MD Primary Care Provide r Encounter Details Date Type Department Care Team (Late st Contact Info) Description 08/07/2023 Abstract [facility] [address] [place] [address] Marcella Reardon Social History Tobacco Use Types [...] Description 10/17/2024 10:45 AM EST Office Visit [facility] [address] [place] [address] Christelle Rondon MD [address] [place] [address] documented as of this encounter Visit Diagnoses Not on filedocumented in this encounter Additional Health Concerns Assessment Noted Time PHQ-9 Depression Total Score: 0 04/05/20 23 3:44 PM EDT documented as of this encounter Care Teams Snagger Relationship Specialty Start Date End Date Christelle Rondon MD [address] [place] [phone] PCP - General Family Medicine 10/11/18 Carmelita Condon Ticket Worker 11/29/23 02/29/24 documented as of this encounter
--- OUTSIDE RECORDS SUMMARY | 2024-10-10 08:46 | XMS_ITS | Encounter Summary ---
Author Organization [facility] [facility] Address [address] [place] [address] [address] [place] [address] Care Team Providers Care Correspondence Dictator Name Role Phone Christelle Rondon MD Primary Care Provide r Reason for Visit * Reason Onset Date Comments Appointment Request 11/24/2022 Encounter Details Date Type Department Care Team (Late Contact Info) Description 11/24/2022 Telephone [facility] [address] [place] [phone] Christelle Rondon MD [address] [place] [phone] Appointment Request Social History Tobacco Use Types [...] appt since last. Please contact pt at [phone] documented in this encounter Plan of Treatment Upcoming Encounters Date Type Department Care Team (Late Contact Info) Description 10/17/2024 10:45 AM EST Office Visit [facility] [address] [place] [address] Christelle Rondon MD [address] [place], [place] [phone] documented as of this encounter Visit Diagnoses Not on filedocumented in this encounter Care Teams Correspondence Dictator Relationship Specialty Start Date End Date Christelle Rondon MD [address] [place], [place] [phone] PCP - General Family Medicine 10/11/18 Carmelita Condon Painter Plate 11/29/23 02/29/24 documented as of this encounter
== END 2024-10-10 09:58 | disposition home or self-care (01) ==
PROVIDERS: PCP Internal Medicine; Visit Provider Urology
DX: N32.81 Overactive bladder (principal); N81.89 Other female genital prolapse; N39.46 Mixed incontinence; R31.9 Hematuria, unspecified; R32 Unspecified urinary incontinence
CPT/HCPCS: 51728; 51741; 51784; 51797; 99214

== ENCOUNTER → 2024-10-10 08:35 | Outpatient (BNVA) | payer MEDICAID, SELFPAY | PROVIDERS: PCP Internal Medicine; Visit Provider Urology | DX: N32.81 Overactive bladder (principal); N81.89 Other female genital prolapse; N39.46 Mixed incontinence; R31.9 Hematuria, unspecified | CPT/HCPCS: 51728; 51741; 51784; 51797; 99212 ==

== ENCOUNTER 2024-11-20 07:46 | Outpatient (AMB) | payer MEDICAID, SELFPAY ==
--- NOTE | 2024-11-20 07:47 | A.OFFVIS_ITS ---
Intake Visit Reasons: 6W/OAB(SET) Pulp Machine Operator Required: Yes Pulp Machine Operator Name: Bro [id number] Information Interpreted: non-clinical & clinical Allergies No Known Allergies [NKA] Allergy (Verified 09/15/24 16:16) Medication List - Last Reconciled 11/20/24 by Ingris Espinal MD benzonatate 100 mg PO BID PRN docusate sodium (Stool Softener) 100 mg PO BID hydrocortisone 2.5% (Proctosol HC) 1 appl VT BID-QID PRN incontinence pad, liner, disp (Pads For Women) As directed three daily ketorolac 10 mg PO TID PRN 5 days lactobacillus combination no.4 (Probiotic) 3,000 mmu cells PO DAILY loratadine (Claritin) 10 mg PO DAILY mirabegron ER (Myrbetriq) 50 mg PO DAILY ondansetron HCl 4 mg PO Q8H PRN pantoprazole 40 mg PO DAILY polyethylene glycol 3350 (Miralax) 17 grams PO DAILY simethicone 180 mg PO BID PRN solifenacin (Vesicare) 5 mg PO DAILY tramadol 50 mg PO Q6H PRN HPI Comments Details: 11/20/24--No longer using oxybutynin 5 mg had SE dry mouth. Some improvement with Myrbetriq 50 mg, but still having wetting episodes related to urge symptoms, Discussed botox bladder injection. I have discussed risks to include hematuria, UTI, urinary retention, need to repeat procedure for sustained efficacy. Will add vesicare 5 mg q pm, however pt may again have issues with dry mouth. The patient is interested in getting the botox bladder injection. 10/10/24--Yoon is here for urodynamics. The patient has complaints of urinary incontinence. Interpretation: During the filling phase there was normal sensation, with strong desire at 184 mL bladder capacity was less than average, the patient felt that she was at capacity at 220 mL Leakage was observed during cough. Findings consistent with less than average functional bladder capacity. Objective stress was documented. EMG- Appropriate changes in the waveforms were noted through out the study. Discussed urinary leakage can be related to pelvic floor muscles weakness and/or bladder spasms. Treatment options discussed for OAB included Behavioral modification, anticholinergics/antimuscarinics, neuromodulation, bladder botox injection. The patient avoids caffeine and is doing kegel exercises. 08/13/24--Yoon is a 54-year-old Albanian-speaking female who is here for evaluation due to urinary incontinence. She states that she leaks all the time including with coughing sneezing. She wears pads daily. She states that a few years ago she was treated with a bladder medication that worked initially and then stopped working. Comorbidity nicotine use, obesity. Discussed further evaluation with urodynamics. Review of chart CTAP-w IV contrast- bilateral renal cysts otherwise kidneys within normal limits. The patient complains of back pain I have reassured her that the renal cysts would not be a cause back pain. Labs: Urinalysis - reviewed - significant for microscopic hematuria. [facility] Medical History Hx of sigmoidoscopy Post-menopause Diverticulosis Diverticulitis Family history of coronary artery bypass graft Smoking Unstable angina pectoris Chronic idiopathic constipation Obesity (BMI 30-39.9) Cigarette smoker Screening for colon cancer Hepatic steatosis Surgical History H/O colonoscopy Morbid obesity Hx of tonsillectomy Family History Brother Cancer Father Diabetes Mother Diabetes HTN (hypertension) Heart problem Family/Other Diabetes Social History Household Members: Children Housing: House Do you presently have visiting nurse or other home services: No Alcohol intake: never Patient Tobacco Use Status: Never used Tobacco Cigarette Packs Per Day: 0.5 Cigarettes Per Day: 10.0 Second Hand Smoke Exposure: No Review of Systems Const All systems reviewed & are unremarkable except as noted in HPI and below Reports no additional complaints Eyes Reports no additional complaints ENT Reports no additional complaints Card Reports no additional complaints Resp Reports no additional complaints GI Reports no additional complaints Reports as per HPI Musc Reports no additional complaints Skin/Breast Reports system reviewed and no additional complaints, except as documented Neuro Reports no additional complaints Psych Reports no additional complaints Endo Reports no additional complaints Amilcar/Lymph Reports no additional complaints Aller/Immun Reports no additional complaints Telehealth Telehealth Telehealth Platform: Telephone Location of provider rendering services: practice address Location of patient: address on file Patient Identification confirmed using: Name, : Yes Telehealth method: voice only Patient verbally consented to treatment: Yes Patient verbally consented to billing insurance company: Yes Patient informed of any privacy concerns related to visit: Yes Minutes spent on Phone/Video with Pt.: 18 Assessment & Plan Assessment & Plan (1) OAB (overactive bladder): Code(s): N32.81 - Overactive bladder Category: Medical (2) Urinary urgency: Code(s): R39.15 - Urgency of urination Category: Medical Plan botox bladder injection 100 units Medications: New solifenacin (Vesicare) 5 mg PO DAILY 30 tabs 3RF Patient Instructions: The patient had an opportunity to ask questions regarding treatment plan. The patient expressed understanding and agreement with the above treatment plan. The patient is aware they should contact our office by phone for worsening of their current condition or the appearance of new symptoms. Compliance is encouraged with any medications and followup testing that is ordered. It is a privilege to be allowed the opportunity to participate in the urologic care of your patient. If you have any questions or concerns regarding treatment for the above conditions please do not hesitate to contact me. The office telephone contact is [phone]. This note is constructed in part using voice recognition software. While every effort has been made to ensure accuracy [place] errors may have been included. Yours sincerely, Ingris Espinal MD Coding Level of Care Code Tele Est Pt Level 4 (90089) Diagnoses OAB (overactive bladder) N32.81 Urinary urgency R39.15
--- OUTSIDE RECORDS SUMMARY | 2024-11-20 07:48 | XMS_ITS | Encounter Summary ---
Author Organization [employer] [facility] Address [address] [place] [address] 7 [place] [address] Care Team Providers Care Talent Acquisition Consultant Name Role Phone Christelle Rondon MD Primary Care Provide r Reason for Visit * Reason Onset Date Comments Appointment Request 11/24/2022 Encounter Details Date Type Department Care Team (Late Contact Info) Description 11/24/2022 Telephone [facility] [address] [place] [phone] Christelle Rondon MD [address] [place] [address] [phone] Appointment Request Social History Tobacco Use Types [...] appt since last. Please contact pt at [phone] documented in this encounter Plan of Treatment Upcoming Encounters Date Type Department Care Team (Late Contact Info) Description 12/04/2024 3:15 PM EDT Telemedicine [facility] [address] [place] [address] Christelle Rondon MD [address] [place], [place] [phone] documented as of this encounter Visit Diagnoses Not on filedocumented in this encounter Care Teams Talent Acquisition Consultant Relationship Specialty Start Date End Date Christelle Rondon MD [address] [place], [place] [phone] PCP - General Family Medicine 10/11/18 Carmelita Condon Building Supplies Salesperson Retail 11/29/23 02/29/24 documented as of this encounter
--- OUTSIDE RECORDS SUMMARY | 2024-11-20 07:48 | XMS_ITS | Clinical Summary ---
Author Organization [employer] Address [address] [place] [address] [address] [place] [address] Care Team Providers Care Residential Care Officer Name Role Phone Christelle Rondon MD Primary Care Provide r Allergies No known active allergies Medications simethicone (Mylicon,Gas-X) 180 MG capsuleIndicatio ns:Other constipation Take 1 capsule (180 mg) by mouth every 6 (six) hours if needed for flatulence. 90 capsule 2 4 Active oxybutynin XL (Ditropan XL) 5 MG 24 hr tablet Take 1 tablet (5 mg) by mouth Once per day. Do not crush, chew, or split. 90 tablet 1 4 025 Active topiramate (Topamax) 25 MG tabletIndication s:Class 3 severe obesity due to excess calories with serious comorbidity and body mass index (BMI) of 40.0 to 44.9 in adult ([facility]) Take 1 tablet (25 mg) by mouth at bedtime. 30 tablet 2 5 026 Active phentermine 15 MG capsuleIndicatio ns:Class 3 severe obesity due to excess calories with serious comorbidity and body mass index (BMI) of 40.0 to 44.9 in adult ([facility]) Take 1 capsule (15 mg) by mouth before breakfast. 30 capsule 5 Active albuterol 108 (90 Base) MCG/ACT inhalerIndicatio ns:Chronic cough Inhale 2 puffs every 6 (six) hours if needed for wheezing. 18 g 11 5 026 Active Diclofenac Sodium 1 % gelIndications:M ultiple joint pain Apply 1 Application topically every 12 (twelve) hours if needed (apply on affected area if needed). 150 g 2 5 Active valACYclovir (Valtrex) 1 g tabletIndication s:Herpes zoster without complication Take 1 tablet (1,000 mg) by mouth 3 times daily for 7 days. 21 tablet 5 025 Active Problems Problem Noted Date Diagnosed Date Chronic cough 10/17/2024 Assessment & Plan (10/17/2024 4:30 PM EST): I will try albuterol inhaler as needed Class 3 severe obesity due t o excess calories with serious comorbidity and body mass index (BMI) of 40.0 to 44.9 in adult 10/17/2024 Assessment & Plan (10/17/2024 4:30 PM EST): Extensive counseling about healthy diet and exercise done today I will start patient on phentermine 15 mg and topiramate 25 mg daily I will reevaluate her in 4 to 6 weeks Decreased hearing of both ears 12/10/2023 Other [...] pain 12/22/2022 Prediabetes 12/22/2022 Assessment & Plan (10/17/2024 4:31 PM EST): Extensive counseling about healthy diet exercise and weight reduction done today A1c done today is now 6.5 so she is officially diagnosed with diabetes, on further conversation with that with patient we decided to concentrate on weight loss and healthy diet before starting her on medications for diabetes, I will follow-up with her again level in about 4 to 6 weeks Assessment & Plan (06/28/2023 3:38 PM EDT): Today extensive discussion was done about life style modifications I advise healthy diet (low calorie) and cardiovascular exercise Recurrent urinary tract infection 12/22/2022 Skin tag 12/22/2022 Sigmoid diverticulosis 08/16/2022 Encounters Date Type Department Care Team Description 10/17/2024 10:45 AM EST Office Visit [address] [address] Christelle Rondon MD Chronic cough (Primary Dx); Class 3 severe obesity due to excess calories with serious comorbidity and body mass index (BMI) of 40.0 to 44.9 in adult (CMS/HCC); Herpes zoster without complication; Multiple joint pain; Prediabetes 10/17/2024 Travel 10/15/[address] [address] Chela Nevarez [place] Chart Prep 10/07/2024 Orders Only GENERIC EXTERNAL DATA DEPARTMENT Provider, Generic External Data 10/06/2024 Patient Outreach [address] [address] Christelle Rondon MD Pre-visit Planning (SDOH screening negative and tobacco screening negative) 09/16/[address] [address] Christelle Rondon MD Medication Question from Last 3 Months Immunizations Name Administration [...] Date Recorded Patient Health Questionnaire-2 Score 0 10/17/2024 Internet Access Answer Date Recorded Internet Access [...] Sign Reading Time Taken Comments Blood Pressure 110/65 10/17/2024 10:49 AM EST Pulse 88 10/17/2024 10:49 AM EST Temperature 36.6 ??C (97.9 ??F) 10/17/2024 10:[address] Respiratory Rate 16 10/17/2024 10:49 AM EST Oxygen Saturation 96% 04/28/2024 12:29 PM EDT Inhaled Oxygen Concentration - - Weight 108 kg (237 lb 1.6 oz) 10/17/2024 10:49 A M EST Height 157.5 cm (5' 2 ) 10/17/2024 10:49 AM EST Body Mass Index 43.37 10/17/2024 10:49 AM EST Plan of Treatment Upcoming Encounters Date Type Department Care Team (Late st Contact Info) Description 12/04/2024 3:15 PM EDT Telemedicine [facility] [address] [place] [address] Christelle Rondon MD [address] [place] [address] Health Maintenance Due Date Last Done Comments [...] Mammogram 10/16/2020 10/16/2018 Pap Smear 01/01/2024 12/31/2020 COVID-19 Vaccine ( - season) 2024 Influenza Vaccine (#1) 2024 10/11/2018 SDOH Screening 11/27/2024 11/28/2023 Lipid Panel 06/14/2025 06/14/2020 Colonoscopy 10/05/2025 Colorectal Cancer Screening 10/05/2025 Depression Screening 10/17/2025 10/17/2024, 04/05/20 23 Diabetes: Hemoglobin A1C 10/17/2025 025, 09/08/2023, 01/18/2022, Additional history exists Tobacco Screening 10/17/2025 10/17/2024 Cervical Cancer Screening 12/23/2025 HPV/Cotest 12/23/2025 12/23/2020 [...] Procedure Name Priority Date/Time Associated Diagnosis Comments POCT GLYCATED HEMOGLOBIN, TOTAL Routine 10/17/2024 12:08 PM EST Prediabetes URINALYSIS, COMPLETE Routine 10/07/2024 4:35 PM EST CULTURE, URINE, ROUTINE Routine 10/07/2024 4:35 PM EST THINPREP PAP Routine 12/31/2020 11:11 AM EDT HPV GENOTYPES 16,18/45 Routine 12/23/2020 3:11 AM EDT LIPID PANEL, STANDARD Routine 06/14/2020 8:40 AM EDT BI MAMMOGRAM SCREENING BILATERAL Routine 10/16/2018 3:56 PM EST from Last 3 Months or Most Recently Relevant to Health Maintenance Results * (ABNORMAL) POCT HGB A1C (10/17/2024 12:08 PM EST) Hemoglobin A1C 6.5(A) 4.0 - 6.0 % Blood 10/17/2024 12:0 8 PM EST Christelle Jorge MD POINT OF CARE TEST EN TER/EDIT ORDERABLES Final Result * (ABNORMAL) Urinalysis Complete (10/07/2024 4:35 PM EST) Color Urine Yellow [facility] Appearance Urine Clear [facility] PH 5.5 5.0 - 9.0 [facility] Glucose Urine UA Negative Negative mg/dL [facility] Urine Blood Moderate (2+)(A) Negative [facility] Specific Anderson - Urine 1.025 1.005 - 1.025 [facility] Urine Protein Negative Neg-Trace mg/dL [facility] Urine Ketones Negative Negative mg/dL [facility] Nitrite Urine Negative Negative [facility] Leukocyte Esterase Urine Negative Negative [facility] RBC Urine 0-2 0 - 2 /HPF [facility] Urine WBC 0-5 0 - 5 /HPF [facility] Urine Squamous Epithelial Cell 3-5 0 - 2 /HPF [facility] Urine Bacteria None Seen None Seen [facility] Hyaline Casts, Urine 0-2 0 - 2 /LPF [facility] 10/07/2024 4:35 PM EST 10/07/2024 5:06 PM EST Generic External Data Provider LAB URINE ORDERAB LES Final Result Performing Organization Address [facility]/ZIP Co de Phone Number [facility] [address] [place] [phone] * Culture, Urine, Routine (10/07/2024 4:35 [...] GENERAL ORDERABLES Final Result Performing Organization Address City/[facility]/ZIP Co de Phone Number [facility] [address] [place] [phone] * THINPREP PAP (12/31/2020 11:11 AM [...] historic and ?? current clinical information. ?? Medical Pathologist : SEE COMMENT [facility] Comment: NSS, CT(ASCP) CT screening location: [address] ??[id number] Interpretation/R esult: Negative for intraepithelial lesion or malignancy. [facility] LMP: NONE [facility] Prev. BX: NONE [facility] Prev. PAP: NONE [facility] SOURCE: NONE [facility] Statement Of Adequacy: [facility] Comment: Satisfactory for evaluation. Endocervical/transformation zone component present. Age and/or menstrual status not provided 12/31/2020 11:1 1 AM EDT Christelle Jorge MD LAB PATHOLOGY ORDERAB LES Final Result [facility] [address] * HPV GENOTYPES 16,18/45 (12/23/2020 3:11 AM EDT) HPV 16 RNA NOT DETECTED NOT DETECTED [facility] HPV 18/45 RNA NOT DETECTED NOT DETECTED [facility] Comment: Methodology: Switchboard Receptionist Mediated Amplification The analytical performance characteristics of this assay have been determined by [facility]. The modifications have not been cleared or [...] Jorge MD LAB BLOOD ORDERABLES Final Result [facility] [address] [place] [address], * (ABNORMAL) LIPID PANEL, STANDARD (06/14/2020 8:40 [...] ?? Arvind SS et al. TINO. 2013;310(19): 7248-7079 ?? ([email or web address] Lá/[email or web address]) Chol/HDLC Ratio 6.7(H) <5.0 (calc) [facility] [...] ?? Arvind SS et al. TINO. 2013;310(19): 1103-3729 ?? ([email or web address]://[email or web address] Lá/faq/[email or web address]) HDL Cholesterol 34(L) > OR = 50 [...] BLOOD ORDERABLES Final Result Performing Organization Address City/State/[facility] Co de Phone Number [facility] [address] * DIGITAL BILATERAL SCREEN 1 (10/16/2018 [...] Most Recently Relevant to Health Maintenance Insurance [employer] Care Teams Residential Care Officer Relationship Specialty Start Date End Date Christelle Rondon MD [address] [place] [phone] PCP - General Family Medicine 10/11/18
--- OUTSIDE RECORDS SUMMARY | 2024-11-20 07:48 | XMS_ITS | Encounter Summary ---
Author Organization [employer] Address [address] [place] [address] [address] [place] [address] Care Team Providers Care Industrial Sales Manager Name Role Phone Christelle Rondon MD Primary Care Provide r Encounter Details Date Type Department Care Team (Late st Contact Info) Description 08/07/2023 Abstract [facility] [address] [place] [address] Marcella Reardon Social History Tobacco Use Types [...] Info) Description 12/04/2024 3:15 PM EDT Telemedicine [facility] [address] [place] [address] Christelle Rondon MD [address] [place] [address] documented as of this encounter Visit Diagnoses Not on filedocumented in this encounter Additional Health Concerns Assessment Noted Time PHQ-9 Depression Total Score: 0 04/05/20 23 3:44 PM EDT documented as of this encounter Care Teams Industrial Sales Manager Relationship Specialty Start Date End Date Christelle Rondon MD [address] [place] [phone] PCP - General Family Medicine 10/11/18 Carmelita Condon Campaign Consultant 11/29/23 02/29/24 documented as of this encounter
== END 2024-11-20 08:32 | disposition home or self-care (01) ==
LOC: HO.HUSH 07:46
PROVIDERS: PCP Internal Medicine; Visit Provider Urology
DX: N32.81 Overactive bladder (principal); R39.15 Urgency of urination
CPT/HCPCS: 99214

== ENCOUNTER 2024-12-08 15:48 | Outpatient (AMB) | payer MEDICAID, SELFPAY ==
--- NOTE | 2024-12-08 15:51 | MHC.OFFVIS ---
Vital Signs 12/08/24 15:53 Height 5 ft 2 in Blood Pressure Location Lt brachial Position Sitting Oxygen Delivery Method Room Air Intake Visit Reasons: 3 mo f/u gerd Intake Note: Patient 3 month follow up for GERD. Patient cc: constipation with some rectal bleeding, swallowing problem is much better, and diverticulosis pain, denies any other GI issues. Recreational Facilities Motel Manager Required: Yes Recreational Facilities Motel Manager Name: [facility] interpeter Accompanied by: Self / Same As Patient Allergies No Known Allergies [NKA] Allergy (Verified 12/08/24 15:51) HPI HPI 3 mo f/u gerd: Details: LAST VISIT: Abdominal bloating with cramps Chronic idiopathic constipation IBS (irritable bowel syndrome) GERD (gastroesophageal reflux disease) Plan Patient will continue taking pantoprazole daily. Avoid dietary triggers and late night snacking. Staying upright for minimum 3 hours after meals discussed with patient. Continue MiraLax daily and Dulcolax. Increase fluid intake and activity to promote better bowel motility. Patient was encouraged weight loss. Patient gained almost 20 lb. Patient will talk to her PCP about starting GLP 1 if she does not want to go through with bariatric surgery. Mild elevation in liver enzymes next month. We will repeat them next visit. Will order ultrasound. Follow-up in 3 months, sooner on as needed basis. She is agreeable to this plan and verbalizes understanding of instructions. She was given the opportunity to ask questions and all questions answered. ? Thank you for allowing me to participate in her care Medications New pantoprazole take one tablet half an hour before breakfast 40 mg PO DAILY 90 tabs 2RF K21.9 Refilled docusate sodium (Stool Softener) 100 mg PO BID 180 caps 3RF polyethylene glycol 3350 (Miralax) 17 grams PO DAILY 100 ea 3RF Discontinued bisacodyl Discontinued Reason: Doctor's Order 10 mg (2 x 5 mg) PO BEDTIME 180 tabs 4RF TODAY'S VISIT patient is here today for follow-up. Patient reports that for the most part she has been doing well, however in the past few weeks she has been more constipated. Patient reports that her PCP put her on weight loss medication to different tablets that she takes every day and since then she became more constipated. Patient reports left lower quadrant pain and diverticulitis like symptoms occasionally. Patient was seen in May in the ER, CT scan done and showed diverticulosis without diverticulitis. Patient is asking if she can have antibiotics on hand just in case she will have these symptoms again. Currently patient is taking stool softener and Dulcolax and still is having trouble moving her bowels. Patient took Linzess in the past and it caused abdominal pain and was not helpful. Patient is taking pantoprazole as her symptoms of acid reflux have been suppressed. Patient denies dyspepsia, dysphagia or odynophagia. Denies melena, hematochezia, unintentional weight loss or ribbon like stools. PFSH Medical History Hx of sigmoidoscopy Post-menopause Diverticulosis Diverticulitis Family history of coronary artery bypass graft Smoking Unstable angina pectoris Chronic idiopathic constipation Obesity (BMI 30-39.9) Cigarette smoker Screening for colon cancer Hepatic steatosis Surgical History H/O colonoscopy Morbid obesity Hx of tonsillectomy Family History Brother Cancer Father Diabetes Mother Diabetes HTN (hypertension) Heart problem Family/Other Diabetes Social History Household Members: Children Housing: House Do you presently have visiting nurse or other home services: No Alcohol intake: never Patient Tobacco Use Status: Never used Tobacco Cigarette Packs Per Day: 0.5 Cigarettes Per Day: 10.0 Second Hand Smoke Exposure: No Review of Systems Const Denies weight gain and Denies weight loss ENT Reports no additional complaints, Denies dysphagia and Denies odynophagia Card Reports no additional complaints Resp Reports no additional complaints GI Reports abdominal pain (LLQ), Denies belching, Denies melena, Reports bloating, Denies change in bowel habits, Reports constipation, Reports GI cramping, Denies dysphagia, Denies excessive flatus, Denies dyspepsia, Denies heartburn, Denies diarrhea, Denies loose stools, Denies nausea, Denies odynophagia and Denies vomiting Reports no additional complaints Musc Reports no additional complaints Neuro Reports no additional complaints Psych Reports no additional complaints Endo Reports no additional complaints Physical Exam Vital Signs: Oxygen Delivery Method Room Air 12/08/24 15:53 Const General: healthy appearing, no acute distress and well developed Nutritional Appearance: obese Orientation/consciousness: patient oriented x3 Resp Effort & Inspection: normal respiratory effort, able to speak in complete sentences, no tracheal deviation and symmetric chest movement Auscultation: clear to auscultation bilaterally Cardio Rate: regular rate GI Inspection: Yes normal to inspection, No distended and Yes obesity Palpation (GI): Soft to palpation, not firm, nontender and No hepatosplenomegaly present Auscultation: normal bowel sounds General: Yes no CVA tenderness Back/Spine/Pelvis Back: no CVA tenderness Skin General skin exam: elasticity normal, turgor normal and dry skin Neuro General: patient oriented x3 Psych Appearance: grossly normal Mental Status: mental status grossly normal Assessment & Plan Assessment & Plan (1) Abdominal bloating with cramps: Code(s): R14.0 - Abdominal distension (gaseous); R10.9 - Unspecified abdominal pain Category: Medical (2) Chronic idiopathic constipation: Code(s): K59.04 - Chronic idiopathic constipation Category: Medical (3) IBS (irritable bowel syndrome): Code(s): K58.9 - Irritable bowel syndrome, unspecified Qualifiers: Irritable bowel syndrome type: without diarrhea Qualified Code(s): K58.9 - Irritable bowel syndrome, unspecified (4) GERD (gastroesophageal reflux disease): Code(s): K21.9 - Gastro-esophageal reflux disease without esophagitis Qualifiers: Esophagitis presence: esophagitis presence not specified Qualified Code(s): K21.9 - Gastro-esophageal reflux disease without esophagitis Plan Continue pantoprazole daily. Avoid dietary triggers and late night snacking staying upright for minimum 3 hours after meals discussed with patient. Patient can start taking Motegrity daily. Increase fluid intake and activity to promote better bowel motility. Patient will take Cipro only when having abdominal pain. Patient was encouraged to do clear liquids then when she will experience that. Follow-up in 8 weeks, sooner on as needed basis. Patient is agreeable to this plan and verbalizes understanding of instructions. She was given the opportunity to ask questions and all questions answered Thank you for allowing me to participate in her care Medications: New prucalopride (Motegrity) 2 mg PO DAILY 30 tabs 2RF K59.04 - Chronic idiopathic constipation ciprofloxacin HCl 500 mg PO BID 14 tabs 0RF Coding Level of Care Code Est Pt Level 4 (18367) Complex EM visit Add On G2211 Diagnoses Abdominal bloating with cramps R14.0; R10.9 Chronic idiopathic constipation K59.04 Irritable bowel syndrome without diarrhea K58.9 Irritable bowel syndrome type: without diarrhea Gastroesophageal reflux disease, unspecified whether esophagitis present K21.9 Esophagitis presence: esophagitis presence not specified Time Spent (min) 40 Comment 25 minutes spent with patient and additional 15 minutes spent reviewing her records
--- OUTSIDE RECORDS SUMMARY | 2024-12-08 17:42 | XMS_ITS | Encounter Summary ---
Author Organization [employer] Address [address] [place] [address] 7 [place] [address] Care Team Providers Care Studio Technician Video Operator Name Role Phone Christelle Rondon MD Primary Care Provide r Reason for Visit * Reason Comments Follow-up Encounter Details Date Type Department Care Team ([facility] st Contact Info) Description 12/04/2024 3:15 PM EDT Telemedicine [facility] [address], [place] [id number] Christelle Rondon MD [address], [place] [phone] Newly diagnosed diabetes (CMS/HCC) (Primary Dx); Class 3 severe obesity due to excess calories with serious comorbidity and body mass index (BMI) of 40.0 to 44.9 in adult (CMS/HCC); Other constipation Social History Tobacco Use Types Packs/Day Years [...] as of this encounter Progress Notes * Christelle Jorge MD - 12/04/2024 3:15 PM EDT SUBJECTIVE: [place] is a 54 y.o. year old female who presents for Follow up . Acute Concerns: Patient reports interim 9 looks topiramate did help her a lot in losing weight, she tells me she lost approximately 19 pounds but then she ran out of the medication and she read pain about 6 pounds, she tells me she does have some dry mouth with the phentermine, constipation and mild palpitations, she reports this side effects does not bother her a lot and that she would like to continue with themedications Social History Social History Narrative Not on file Patient Active Problem List Diagnosis Sigmoid diverticulosis Anxiety Chronic right shoulder pain Colitis Diverticulitis Herpes zoster without complication Elevated LFTs Furuncle of buttock Hand pain Inguinal lymphadenopathy Multiple joint pain Neck pain Prediabetes Recurrent urinary tract infection Skin tag BMI 40.0-44.9, adult (CMS/HCC) Chronic bilateral low back pain without sciatica Warts Other constipation Encounter for screening mammogram for malignant neoplasm of breast Decreased hearing of both ears Chronic cough Class 3 severe obesity due to excess calories with serious comorbidity and body mass index (BMI) of40.0 to 44.9 in adult (CMS/HCC) Newly diagnosed diabetes (CMS/[facility]) No family history on file. Review of Systems Constitutional: Negative. HENT: Negative. Respiratory: Negative. Cardiovascular: Positive for palpitations. Negative for chest pain and leg swelling. Gastrointestinal: Positive for constipation. Negative for abdominal distention, abdominal pain, anal bleeding, blood in stool, diarrhea, nausea, rectal pain and vomiting. Follow Up: Follow up in about 4 weeks (around 01/01/2025) for 4-6 weeks televisit weight/recent diagnose DM . Current Outpatient Medications on File Prior to Visit Medication Sig Dispense Refill albuterol 108 (90 Base) MCG/ACT inhaler Inhale 2 puffs every 6 (six) hours if needed for wheezing. 18 g 11 Diclofenac Sodium 1 % gel Apply 1 Application topically every 12 (twelve) hours if needed (apply onaffected area if needed). 150 g 2 oxybutynin XL (Ditropan XL) 5 MG 24 hr tablet Take 1 tablet (5 mg) by mouth Once per day. Do not crush, chew, or split. 90 tablet 1 topiramate (Topamax) 25 MG tablet Take 1 tablet (25 mg) by mouth at bedtime. 30 tablet 2 [DISCONTINUED] phentermine 15 MG capsule Take 1 capsule (15 mg) by mouth before breakfast. 30 capsule 0 [DISCONTINUED] simethicone (Mylicon,Gas-X) 180 MG capsule Take 1 capsule (180 mg) by mouth every 6 (six) hours if needed for flatulence. 90 capsule 2 No current facility-administered medications on file prior to visit. Problem List Items Addressed This Visit Class 3 severe obesity due to excess calories with serious comorbidity and body mass index (BMI) of40.0 to 44.9 in adult ([facility]) Extensive counseling about healthy diet and exercise done today I will continue with phentermine 50 mg daily plus topiramate 25 mg daily I will follow-up with patient again to monitor her weight and side effects Relevant Medications phentermine 15 MG capsule Other constipation Counseling done about increasing fiber and water on her diet, I also recommended more physical activity walking Continue with constipation medication as needed and simethicone as needed for bloating sensation Relevant Medications simethicone (Mylicon,Gas-X) 180 MG capsule Newly diagnosed diabetes ([facility]) - Primary Patient was recently diagnosed with diabetes and for recommended conversation we agree we will treat with weight reduction and healthy diet, I prescribed for patient today glucometer and I advised tomonitor her blood sugars daily this will help make the decision if she should be started or not on other medications for diabetes Relevant Medications FREESTYLE LITE test strip Lancets misc Alcohol Swabs 70 % pads Blood Glucose Monitoring Suppl (FreeStyle [place] Lite) w/Device kit documented in this encounter Miscellaneous Notes * Assessment & Plan Note - Christelle Jorge MD - 12/05/2024 9:28 AM EDT Associated Problem(s): Newly diagnosed diabetes ([facility]) Patient was recently diagnosed with diabetes and for recommended conversation we agree we will treat with weight reduction and healthy diet, I prescribed for patient today glucometer and I advised tomonitor her blood sugars daily this will help make the decision if she should be started or not on other medications for diabetes * Assessment & Plan Note - Christelle Jorge MD - 12/05/2024 9:27 AM EDT Associated Problem(s): Class 3 severe obesity due to excess calories with serious comorbidity and body mass index (BMI) of 40.0 to 44.9 in adult ([facility]) Extensive counseling about healthy diet and exercise done today I will continue with phentermine 50 mg daily plus topiramate 25 mg daily I will follow-up with patient again to monitor her weight and side effects * Assessment & Plan Note - Christelle Jorge MD - 12/05/2024 9:26 AM EDT Associated Problem(s): Other constipation Counseling done about increasing fiber and water on her diet, I also recommended more physical activity walking Continue with constipation medication as needed and simethicone as needed for bloating sensation documented in this encounter Plan of Treatment Upcoming Encounters Date Type Department Care Team (Late st Contact Info) Description 01/30/2025 11:00 AM EDT Telemedicine [facility] [address] [place] [address] Christelle Rondon MD [address] [place] [phone] documented as of this encounter Visit Diagnoses Diagnosis Newly diagnosed diabetes (CMS/[facility])- Primary Type II or unspecified type diabetes mellitus without mention of complication, not stated as uncontrolled Class 3 severe obesity due to excess calories with serious comorbidity and body mass index (BMI) of 40.0 to 44.9 in adult (CMS/HCC) Other constipation documented in this encounter Additional Health Concerns Assessment Noted Time PHQ-9 Depression Total Score: 0 04/05/20 23 3:44 PM EDT documented as of this encounter Care Teams Studio Technician Video Operator Relationship Specialty Start Date End Date Christelle Rondon MD [address] [place] [id number] PCP - General Family Medicine 10/11/18 documented as of this encounter
--- OUTSIDE RECORDS SUMMARY | 2024-12-08 17:42 | XMS_ITS | Encounter Summary ---
Author Organization [employer] Address [address] [place] [address] [address] [place] [address] Care Team Providers Care Media Production Support Manager Name Role Phone Christelle Rondon MD Primary Care Provide r Encounter Details Date Type Department Care Team (Latest Contact Info) Description 12/04/2024 Travel Social History Tobacco Use Types Packs/Day Years [...] Info) Description 01/30/2025 11:00 AM EDT Telemedicine [facility] [address] [place] [address] Christelle Rondon MD [address], [place] [phone] documented as of this encounter Visit Diagnoses Not on filedocumented in this encounter Additional Health Concerns Assessment Noted Time PHQ-9 Depression Total Score: 0 04/05/20 23 3:44 PM EDT documented as of this encounter Care Teams Media Production Support Manager Relationship Specialty Start Date End Date Christelle Rondon MD [address] [place] [phone] PCP - General Family Medicine 10/11/18 documented as of this encounter
--- OUTSIDE RECORDS SUMMARY | 2024-12-08 17:42 | XMS_ITS | Clinical Summary ---
Author Organization [employer] Address [address] [place] [address] 7[address] [place] [address] Care Team Providers Care Safety Deposit Clerk Name Role Phone Christelle Rondon MD Primary Care Provide r Allergies No known active allergies Medications oxybutynin XL (Ditropan XL) 5 MG 24 hr tablet Take 1 tablet (5 mg) by mouth Once per day. Do not crush, chew, or split. 90 tablet 1 04/28/20 24 2024 Active topiramate (Topamax) 25 MG tabletIndicatio ns:Class 3 severe obesity due to excess calories with serious comorbidity and body mass index (BMI) of 40.0 to 44.9 in adult (CMS/[facility]) Take 1 tablet (25 mg) by mouth at bedtime. 30 tablet 2 10/17/19 25 2025 Active albuterol 108 (90 Base) MCG/ACT inhalerIndicati ons:Chronic cough Inhale 2 puffs every 6 (six) hours if needed for wheezing. 18 g 11 10/17/19 25 2025 Active Diclofenac Sodium 1 % gelIndications: Multiple joint pain Apply 1 Application topically every 12 (twelve) hours if needed (apply on affected area if needed). 150 g 2 10/17/19 25 Active simethicone (Mylicon,Gas-X) 180 MG capsuleIndicati ons:Other constipation Take 1 capsule (180 mg) by mouth every 8 (eight) hours if needed for flatulence. 90 capsule 2 12/05/19 25 Active phentermine 15 MG capsuleIndicati ons:Class 3 severe obesity due to excess calories with serious comorbidity and body mass index (BMI) of 40.0 to 44.9 in adult ([facility]) Take 1 capsule (15 mg) by mouth before breakfast. 30 capsule 1 12/05/19 25 2024 Active FREESTYLE LITE test stripIndication s:Newly diagnosed diabetes ([facility]) Use to test blood sugar 1 times daily 100 each 12 12/05/19 25 2025 Active Lancets miscIndications :Newly diagnosed diabetes ([facility]) Use to test blood sugar 1 times daily 100 each 12/05/19 25 Active Alcohol Swabs 70 % padsIndications :Newly diagnosed diabetes ([facility]) Use to test blood sugar 1 times daily 100 each 12/05/19 25 Active Blood Glucose Monitoring Suppl (FreeStyle Nitro Lite) w/Device kitIndications: Newly diagnosed diabetes ([facility]) Use to test blood sugar 1 times daily 1 kit 12/05/19 Active simethicone (Mylicon,Gas-X) 180 MG capsuleIndicati ons:Other constipation Take 1 capsule (180 mg) by mouth every 6 (six) hours if needed for flatulence. 90 capsule 2 12/06/19 24 2024 Discontinued(R eorder (will not trigger notification to Pharmacy)) phentermine 15 MG capsuleIndicati ons:Class 3 severe obesity due to excess calories with serious comorbidity and body mass index (BMI) of 40.0 to 44.9 in adult ([facility]) Take 1 capsule (15 mg) by mouth before breakfast. 30 capsule 10/17/19 25 2024 Discontinued(R eorder (will not trigger notification to Pharmacy)) Active Problems Problem Noted Date Diagnosed Date Newly diagnosed diabetes 12/04/2024 Assessment & Plan (12/05/2024 9:28 AM EDT): Patient was recently diagnosed with diabetes and for recommended conversation we agree we will treat with weight reduction and healthy diet, I prescribed for patient today glucometer and I advised to monitor her blood sugars daily this will help make the decision if she should be started or not on other medications for diabetes Chronic cough 10/17/2024 Assessment & Plan (10/17/2024 4:30 PM EST): I will try albuterol inhaler as needed Class 3 severe obesity due t o excess calories with serious comorbidity and body mass index (BMI) of 40.0 to 44.9 in adult 10/17/2024 Assessment & Plan (12/05/2024 9:27 AM EDT): Extensive counseling about healthy diet and exercise done today I will continue with phentermine 50 mg daily plus topiramate 25 mg daily I will follow-up with patient again to monitor her weight and side effects Assessment & Plan (10/17/2024 4:30 PM EST): Extensive counseling about healthy diet and exercise done today I will start patient on phentermine 15 mg and topiramate 25 mg daily I will reevaluate her in 4 to 6 weeks Decreased hearing of both ears 12/10/2023 Other constipation 12/06/2023 Assessment & Plan (12/05/2024 9:26 AM EDT): Counseling done about increasing fiber and water on her diet, I also recommended more physical activity walking Continue with constipation medication as needed and simethicone as needed for bloating sensation Encounter for screening mamm ogram for malignant [...] Encounters Date Type Department Care Team Description 12/04/2024 3:15 PM EDT Telemedicine [facility] [place] [address] Christelle Rondon MD Newly diagnosed diabetes (CMS/HCC) (Primary Dx); Class 3 severe obesity due to excess calories with serious comorbidity and body mass index (BMI) of 40.0 to 44.9 in adult (CMS/HCC); Other constipation 12/04/2024 Travel 12/03/2024 Orders Only [facility] [place] [address] Christelle Rondon MD 11/21/2024 Population Health Risk Score [facility] () Department [address] [place] [phone] Provider, Population Health Generic 10/17/2024 10:45 AM EST Office Visit [facility] [address] [facility] [place] [address] Christelle Rondon MD Chronic cough (Primary Dx); Class 3 severe obesity due to excess calories with serious comorbidity and body mass index (BMI) of 40.0 to 44.9 in adult (CMS/HCC); Herpes zoster without complication; Multiple joint pain; Prediabetes 10/17/2024 Travel 10/15/2024 Telephone [facility] [place] [address] Chela Nevarez MA Chart Prep 10/07/2024 Orders Only GENERIC EXTERNAL DATA DEPARTMENT Provider, Generic External Data 10/06/2024 Patient Outreach [facility] [address] [place] [address] Christelle Rondon MD Pre-visit Planning (SDOH screening negative and tobacco screening negative) 09/16/2024 Telephone [facility] [address] [place] [address] Christelle Rondon MD Medication Question from Last [...] Info) Description 01/30/2025 11:00 AM EDT Telemedicine [facility] [address] [place] [address] Christelle Rondon MD [address] [place] [address] Health Maintenance Due Date Last Done Comments CT Colonography 1970 FIT DNA/Cologuard 1970 FIT 1970 FOBT 1970 HIV Screening 1970 Sigmoidoscopy 1970 Diabetes: Foot Exam 1980 Eye Exam 1980 Alcohol/Substance Use Screening 1982 Hepatitis C Screening 1988 Diabetes: Urine Protein Screening 1989 Hepatitis B Vaccines (1 of 3 - 19+ 3-dose series) 1989 Pneumococcal Vaccine: 50+ Years (1 of 2 - PCV) 1989 Zoster Vaccines (1 of 2) 2020 Mammogram 10/16/2020 10/16/2018 Lipid Panel 06/14/2021 06/14/2020 Pap Smear 01/01/2024 12/31/2020 COVID-19 Vaccine ( season) 2024 Influenza Vaccine (#1) 2024 10/11/2018 SDOH Screening 11/27/2024 11/28/2023 Diabetes: Hemoglobin A1C 04/16/2025 025, 09/08/2023, 01/18/2022, Additional history exists Colonoscopy 10/05/2025 Colorectal Cancer Screening 10/05/2025 Depression Screening 10/17/2025 10/17/2024, 04/05/20 Tobacco Screening 10/17/2025 10/17/2024 Cervical Cancer Screening [...] % Blood 10/17/2024 12:0 8 PM EST us Christelle Jorge MD POINT OF CARE TEST EN TER/EDIT ORDERABLES Final Result * (ABNORMAL) Urinalysis Complete (10/07/2024 4:35 PM EST) Color Urine Yellow [facility] Appearance Urine Clear [facility] PH 5.5 5.0 - 9.0 [facility] Glucose Urine UA Negative Negative mg/dL [facility] Urine Blood Moderate (2+)(A) Negative [facility] Specific Proctor - Urine 1.025 1.005 - 1.025 [facility] Urine Protein Negative Neg-Trace mg/dL [facility] Urine Ketones Negative Negative mg/dL [facility] Nitrite Urine Negative Negative [facility] Leukocyte Esterase Urine Negative Negative [facility] RBC Urine 0-2 0 - 2 /HPF [facility] Urine WBC 0-5 0 - 5 /HPF [facility] Urine Squamous Epithelial Cell 3-5 0 - 2 /HPF [facility] Urine Bacteria None Seen None Seen [facility] Hyaline Casts, Urine 0-2 0 - 2 /LPF [facility] 10/07/2024 4:35 PM EST 10/07/2024 5:06 PM EST us Generic External Data Provider LAB URINE ORDERAB LES Final Result [facility] [address] [place] [phone] * Culture, Urine, Routine (10/07/2024 4:35 PM EST) Urine Urine specimen obtained by clean catch procedure / Unknown 10/07/2024 4:35 PM EST 10/07/2024 5:06 PM EST Comment:UACC Narrative [facility] - 10/09/2024 10:18 AM EST Urine Culture Report Result Urine Culture 10,000 to 50,000 cfu/ml Urine Culture Mixed bacterial royce characteristic of Urine Culture urogenital contamination. Specimen Source: Urine clean catch us Generic External Data Provider LAB MICROBIOLOGY - GENERAL ORDERABLES Final Result [facility] [address] [place] [phone] * THINPREP PAP (12/31/2020 11:11 AM [...] historic and ?? current clinical information. ?? Heel Wheeler : SEE COMMENT [facility] Comment: NSS, CT(ASCP) CT screening location: [address] ??[id number] Interpretation/R esult: Negative for intraepithelial lesion or malignancy. [facility] LMP: NONE [facility] Prev. BX: NONE [facility] Prev. PAP: NONE [facility] SOURCE: NONE [facility] Statement Of Adequacy: SEE COMMENT [facility] Comment: Satisfactory for evaluation. Endocervical/transformation zone component present. Age and/or menstrual status not provided 12/31/2020 11:1 1 AM EDT Christelle Jorge MD LAB PATHOLOGY ORDERAB LES Final Result Performing Organization Address [facility] de Phone Number [facility] [address] * HPV GENOTYPES 16,18/45 (12/23/2020 3:11 AM EDT) HPV 16 RNA NOT DETECTED NOT DETECTED [facility] HPV 18/45 RNA NOT DETECTED NOT DETECTED [facility] Comment: Methodology: Payroll Lead Mediated Amplification The analytical performance characteristics of this assay have been determined by [employer]. The modifications have not been cleared or [...] 3:11 AM EDT Christelle Jorge MD LAB CYTOLOGY ORDERABL ES Final Result Performing Organization Address [facility] de Phone Number [facility] [address] * (ABNORMAL) LIPID PANEL, STANDARD (06/14/2020 [...] ?? Arvind ALFARO et al. TINO. 2013;310(19): 1853-2984 ?? (http://education.kompany/faq/FSD435) Chol/HDLC Ratio 6.7(H) <5.0 (calc) [facility] [...] ?? Arvind ALFARO et al. TINO. 2013;310(19): 8936-7999 ?? (http://VeriTran.kompany/faq/VPQ274) HDL Cholesterol 34(L) > OR = 50 [...] [facility] 06/14/2020 8:40 AM EDT Christelle Jorge MD LAB BLOOD ORDERABLES Final Result [facility] [address] [place] [address], * DIGITAL BILATERAL SCREEN 1 (10/16/2018 3:56 [...] Most Recently Relevant to Health Maintenance Insurance [employer] * Guarantor: [place] Account Type Relation to Patient Date of Phone Billing Address Personal/Family Self [address] [id number] Care Teams Safety Deposit Clerk Relationship Specialty Start Date End Date Christelle Rondon MD [address] [place] [address] PCP - General Family Medicine 10/11/18
--- OUTSIDE RECORDS SUMMARY | 2024-12-08 17:42 | XMS_ITS | Encounter Summary ---
Author Organization [employer] Address [address] [place] [address] 7t [place] [address] Care Team Providers Care Home Health Care Coordinator Name Role Phone Christelle Rondon MD Primary Care Provide r Encounter Details Date Type Department Care Team ([facility] st Contact Info) Description 12/03/2024 Orders Only [facility] [address] [place], [place] [phone] Christelle Rondon MD [address] [place], [place] [phone] Social History Tobacco Use Types Packs/Day Years [...] t he electric, gas, oil or water [employer] threatened to shut off services in your [...] Info) Description 01/30/2025 11:00 AM EDT Telemedicine [facility] [address] [place] [phone] Christelle Rondon MD [address] [place] [address] documented as of this encounter Visit Diagnoses Not on filedocumented in this encounter Additional Health Concerns Assessment Noted Time PHQ-9 Depression Total Score: 0 04/05/20 23 3:44 PM EDT documented as of this encounter Care Teams Home Health Care Coordinator Relationship Specialty Start Date End Date Christelle Rondon MD [address] [place] [phone] PCP - General Family Medicine 10/11/18 documented as of this encounter
--- OUTSIDE RECORDS SUMMARY | 2024-12-08 17:42 | XMS_ITS | Encounter Summary ---
Author Organization [employer] Address [address] [place] [address] 7t [place] [address] Care Team Providers Care Dish Maker Name Role Phone Christelle Rondon MD Primary Care Provide r Encounter Details Date Type Department Care Team (Late st Contact Info) Description 08/07/2023 Abstract [facility] [address] [place] [address] Marcella Reardon Social History Tobacco Use Types [...] Info) Description 01/30/2025 11:00 AM EDT Telemedicine [facility] [address] [place] [address] Christelle Rondon MD [address] [place] [address] documented as of this encounter Visit Diagnoses Not on filedocumented in this encounter Additional Health Concerns Assessment Noted Time PHQ-9 Depression Total Score: 0 04/05/20 23 3:44 PM EDT documented as of this encounter Care Teams Dish Maker Relationship Specialty Start Date End Date Christelle Rondon MD [address] [place] [phone] PCP - General Family Medicine 10/11/18 Carmelita Condon Director Financial Planning 11/29/23 02/29/24 documented as of this encounter
--- OUTSIDE RECORDS SUMMARY | 2024-12-08 17:42 | XMS_ITS | Encounter Summary ---
Author Organization [employer] [facility] Address [address] [place] [address] 7 [place] [address] Care Team Providers Care Distribution Systems Superintendent Name Role Phone Christelle Rondon MD Primary Care Provide r Reason for Visit * Reason Onset Date Comments Appointment Request 11/24/2022 Encounter Details Date Type Department Care Team (Late Contact Info) Description 11/24/2022 Telephone [facility] [address] [place] [phone] Christelle Rondon MD [address] [place] [phone] Appointment Request Social History Tobacco Use Types [...] Miscellaneous Notes * Telephone Encounter - Genet Vilchisjosee Waddell - 11/24/2022 2:10 PM EDT Tc from pt requesting derm appt. Pt claims she never scheduled another appt since last. Please contact pt at [phone] documented in this encounter Plan of Treatment Upcoming Encounters Date Type Department Care Team (Late Contact Info) Description 01/30/2025 11:00 AM EDT Telemedicine [facility] [address] [place] [address] Christelle Rondon MD [address] [place], [place] [phone] documented as of this encounter Visit Diagnoses Not on filedocumented in this encounter Care Teams Distribution Systems Superintendent Relationship Specialty Start Date End Date Christelle Rondon MD [address] [place], [place] [phone] PCP - General Family Medicine 10/11/18 Carmelita Condon Complaint Coordinator 11/29/23 02/29/24 documented as of this encounter
== END 2024-12-08 16:39 | disposition home or self-care (01) ==
LOC: HO.HGI 15:48
PROVIDERS: Visit Provider Nurse Practitioner Family
DX: R14.0 Abdominal distension (gaseous) (principal); R10.9 Unspecified abdominal pain; K59.04 Chronic idiopathic constipation; K58.9 Irritable bowel syndrome, unspecified; K21.9 Gastro-esophageal reflux disease without esophagitis
CPT/HCPCS: 99214

== ENCOUNTER → 2024-12-08 15:48 | Outpatient (BNVA) | payer MEDICAID, SELFPAY | PROVIDERS: Visit Provider Nurse Practitioner Family | DX: K21.9 Gastro-esophageal reflux disease without esophagitis (principal); K58.1 Irritable bowel syndrome with constipation; K59.04 Chronic idiopathic constipation; R14.0 Abdominal distension (gaseous); R10.9 Unspecified abdominal pain | CPT/HCPCS: 99212 ==

== ENCOUNTER 2025-01-06 06:07 | Day surgery (SDC) | payer MEDICAID, SELFPAY ==
[2025-01-02 09:40] VITALS: BMI 43.7
--- NOTE | 2025-01-05 11:43 | HO.ANESPROP2 ---
Documented by User: Aide Mcnair NP 01/05/25 11:43 HPI - Anesthesia Eval Consult details Narrative: 54yo F for Cystoscopy Botox Injection PMFSH Active Problems Active Problems: All Active Problems Urinary urgency (Acute) Mixed stress and urge urinary incontinence (Acute) CHRIS (stress urinary incontinence, female) (Acute) Pelvic floor weakness (Acute) OAB (overactive bladder) (Acute) Hematuria (Acute) Intermittent gross hematuria (Acute) Back pain (Acute) Urinary incontinence (Acute) Esophageal candidiasis (Acute) Screening for colon cancer (Acute) Abdominal bloating with cramps (Acute) Diverticulosis (Acute) Chronic idiopathic constipation (Acute) Obesity (BMI 30-39.9) (Acute) Past Medical History Medical History (Updated 01/02/25 @ 09:37 by Denise London RN) Hx of sigmoidoscopy Post-menopause Diverticulosis Diverticulitis Family history of coronary artery bypass graft Smoking Chronic idiopathic constipation Obesity (BMI 30-39.9) Cigarette smoker Hepatic steatosis Family History Family History Brother Cancer Father Diabetes Mother Diabetes HTN (hypertension) Heart problem Family/Other Diabetes Surgical History Surgical History (Updated 01/02/25 @ 09:38 by Denise London RN) H/O colonoscopy Hx of tonsillectomy History of Problems with Anesthesia: No Social History Social History (Updated 01/02/25 @ 09:43 by Denise London RN) Household Members: Children Housing: House Are you a primary critical care nurse specialist to a significant other at home: No Do you presently have visiting nurse or other home services: No Alcohol intake: never Patient Tobacco Use Status: Former Tobacco user Cigarette Packs Per Day: 0.5 Cigarettes Per Day: 10.0 Second Hand Smoke Exposure: No Use of substances other than those prescribed or required for medical reasons: No Have you been hit, kicked, punched, or otherwise hurt by someone within the past year? If so, by whom?: No Are you DNR?: No Advance Directives: No Advance Directives Information Provided: Yes Patient : No Meds Allergies Allergy/AdvReac Type Severity Reaction Status Date / Time No Known Allergies [NKA] Allergy Verified 01/06/25 06:26 Exam Height,Weight and Vital Signs: Height 5 ft 2 in Weight 108.409 kg Assessment and Plan Assessment Anesthesia Assessment: Chart Reviewed Final Anesthetic Review History of Problems with Anesthesia: No Documented by User: Ania Guzman MD 01/06/25 07:33 PMFSH Past Medical History Medical History (Updated 01/02/25 @ 09:37 by Denise London, RN) Hx of sigmoidoscopy Post-menopause Diverticulosis Diverticulitis Family history of coronary artery bypass graft Smoking Chronic idiopathic constipation Obesity (BMI 30-39.9) Cigarette smoker Hepatic steatosis Family History Family History Brother Cancer Father Diabetes Mother Diabetes HTN (hypertension) Heart problem Family/Other Diabetes Family history of problems with anesthesia: No Surgical History Surgical History (Updated 01/02/25 @ 09:38 by Denise London RN) H/O colonoscopy Hx of tonsillectomy Social History Social History (Updated 01/02/25 @ 09:43 by Denise London RN) Household Members: Children Housing: House Are you a primary critical care nurse specialist to a significant other at home: No Do you presently have visiting nurse or other home services: No Alcohol intake: never Patient Tobacco Use Status: Former Tobacco user Cigarette Packs Per Day: 0.5 Cigarettes Per Day: 10.0 Second Hand Smoke Exposure: No Use of substances other than those prescribed or required for medical reasons: No Have you been hit, kicked, punched, or otherwise hurt by someone within the past year? If so, by whom?: No Are you DNR?: No Advance Directives: No Advance Directives Information Provided: Yes Patient : No Meds Allergies Allergy/AdvReac Type Severity Reaction Status Date / Time No Known Allergies [NKA] Allergy Verified 01/06/25 06:26 Exam Airway Mallampati Class: III TM Dist: >3cm Neck ROM: Full Assessment and Plan Assessment Anesthesia Assessment: Anesthesia Plan Discussed Final Anesthetic Review Family History of Problems with Anesthesia: No NPO: Yes ASA Class: III Final Preanesthetic Review: No Changes in Pt Med Stat, Meds/Allgs Chart Reviewed, Consent Obtained/Reviewed and Anes Risks/Benef Reviewed Patient Risk: Intermediate Procedure Risk: Low Anesthetic Plan Anesthetic Plan: TIVA Disposition: Standard PACU
[2025-01-06 06:29] VITALS: BP 121/81; PULSE 84; RESP 14; TEMP 524.4; TEMP 976; O2SAT 97; BMI 39.1
[2025-01-06] MEDS: Lactated Ringers 1,000 ML 100 ML IVCONT (06:44)
--- NOTE | 2025-01-06 07:30 | P.OP_ITS ---
Operative Note Operative Note Date of Service: 01/06/25 Narrative: PREOP DIAGNOSIS: OAB POSTOP DIAGNOSIS: OAB PROCEDURE: CYSTOSCOPY, BLADDER BOTOX INJECTION 100 UNITS SURGEON: Ingris Espinal MD ANESTHESIA: General Details of procedure: The patient was brought into the operating room placed on the OR table in supine position. Antibiotics confirmed. General anesthesia was administered. The patient was repositioned into lithotomy position, prepped and draped in the usual sterile fashion. Time-out was done per protocol. A 22 fr cystoscope was placed transurethrally into the bladder. Urine was sent for culture. The right and left ureteral orifices were visualized. There were mild trabeculations noted. There were no suspicious bladder lesions seen. The Botox 100 units was mixed with 10 cc of normal saline and transurethral inj ections were placed into the posterior wall of the bladder. 0.5cc placed at each injection site. Injections were placed in a grid 5 across and 4 longitudinally. Injections were placed from the inferior to superior position. 2% lidocaine urojet was passed transurethrally into the bladder. The patient was brought out of anesthesia and taken to recovery in stable condition. Complications: None EBL: minimal (<5 mL) Drains: none
--- NOTE | 2025-01-06 07:30 | MHC.SHP ---
Pre-Procedural Eval Section A - 24 Hr Update-Section A only Date of Service: 01/06/25 The patient is an INPATIENT: No The patient has been examined within 24 hours of the surgical procedure. The History & Physical has been completed within 30 days and I have reviewed it.: Yes Section B - Complete if H&P > 30 days Chief Complaint: Overactive bladder Allergies: Allergies Allergy/AdvReac Type Severity Reaction Status Date / Time No Known Allergies [NKA] Allergy Verified 01/06/25 06:26 Plan Diagnosis/Plan: Unchanged I have reviewed the history and physical and performed a pertinent physical examination on my patient. No changes have occurred unless specified. Cystoscopy. Botox bladder injection. 100 units. I have discussed risks to include hematuria, UTI, urinary retention, need to repeat procedure for sustained efficacy. Time Spent With Patient Time: Total time managing care of this patient today ____ minutes.
[2025-01-06] MEDS: ceFAZolin Sodium/Dextrose,Iso 2 GM/50 ML PIGGYBACK IV (07:40)
[2025-01-06 08:12] VITALS: BP 94/51; PULSE 88; RESP 16; TEMP 36.5; O2SAT 96
[2025-01-06 08:27] VITALS: BP 114/79; PULSE 74; RESP 16; TEMP 36.2; O2SAT 97
== END 2025-01-06 08:51 | disposition home or self-care (01) ==
PROVIDERS: PCP Internal Medicine; Visit Provider Urology
PROC: 3E0K8GC Introduction of Other Therapeutic Substance into Genitourinary Tract, Via Natural or Artificial Opening Endoscopic (ICD-10-PCS; CPT 52287; principal; 2025-01-06 07:30)
DX: N32.81 Overactive bladder (principal); R39.15 Urgency of urination; R32 Unspecified urinary incontinence; N28.1 Cyst of kidney, acquired; I20.0 Unstable angina; K76.0 Fatty (change of) liver, not elsewhere classified; K59.04 Chronic idiopathic constipation; Z79.899 Other long term (current) drug therapy; F17.210 Nicotine dependence, cigarettes, uncomplicated
CPT/HCPCS: 52287; 87086; J0585; J0690; J2003; J2405; J2704; J3010

== ENCOUNTER → 2025-01-06 06:07 | Outpatient (BNV) | payer MEDICAID, SELFPAY | PROVIDERS: PCP Internal Medicine; Visit Provider Urology | DX: N32.81 Overactive bladder (principal) | CPT/HCPCS: 52287 ==

== ENCOUNTER → 2025-01-19 14:45 | Outpatient (BNVA) | payer MEDICAID, SELFPAY | PROVIDERS: PCP Internal Medicine; Visit Provider Urology | DX: N39.46 Mixed incontinence (principal); R39.15 Urgency of urination | CPT/HCPCS: 51798 ==

== ENCOUNTER 2025-02-19 00:36 | Inpatient (IN) | payer MEDICAID, SELFPAY ==
[2025-02-19] VITALS (11 sets, daily range): BP systolic 92–126; BP diastolic 53–88; PULSE 61–92; RESP 12–18; TEMP 36.4–37.2; O2SAT 95–99; BMI 39.3
--- NOTE | ~2025-02-19 | CT_ITS ---
CLINICAL HISTORY: Abdominal pain with history of diverticulitis CT abdomen and pelvis without contrast Comparison: None Findings: No consolidation or effusion. There is mild airway thickening of the lung bases and there are linear regions of atelectasis. The liver, gallbladder, spleen, adrenal glands and pancreas are unremarkable. Right renal cyst measuring up to 5.7 cm. No suspicious renal lesion, obstructive uropathy or urinary calculus. The bladder is unremarkable. The uterus demonstrates a possible left-sided fibroid. No adnexal mass. Mild abnormal stranding about the sigmoid colon in the region of thickening, axial images 68-73. There is a small rounded fluid density structure abutting the dorsal surface of the sigmoid colon axial 66 and coronal 52 which may reflect a large diverticulum or very small early abscess. No free fluid or free air. No acute osseous finding. Impression: Findings suggest sigmoid diverticulitis with abnormal thickening of the sigmoid colon and mild surrounding stranding. GI follow-up recommended to ensure resolution of the sigmoid thickening. Nonspecific fluid density structure abutting the sigmoid may reflect a fluid-filled diverticulum or small early abscess. Close continued follow-up recommended. This document has been electronically signed by: Roni Arreola MD on 02/19/2025 06:52:07
--- NOTE | 2025-02-19 01:29 | ED.ABDPAIN ---
HPI - Abdominal Pain General Chief Complaint: Abdominal Pain Stated Complaint: ABDOMINAL PAIN/ DIZZINESS/CHEST PAIN Time Seen by Provider: 02/19/25 01:02 Source: patient Mode of arrival: ambulatory Limitations: no limitations History of Present Illness ED Provider: HPI narrative: Patient is 54 years old with history of diabetes ,started on Tirzepatide on 02/09 received the last dose 02/17 since yesterday patient has been having nausea diarrhea and abdominal discomfort had multiple episodes of watery stool no fever no chills Related Data Previous Rx's ?Medication ?Instructions ?Recorded loratadine 10 mg tablet (Claritin) 10 mg PO DAILY #30 tabs 03/28/23 hydrocortisone 2.5 % topical cream 1 appl NM BID-QID PRN hemorrhoids 06/25/23 with perineal applicator #30 grams (Proctosol HC) ketorolac 10 mg tablet 10 mg PO TID PRN pain 5 days #15 05/25/24 tabs ondansetron HCl 4 mg tablet 4 mg PO Q8H PRN nausea and 05/25/24 vomiting #14 tabs incontinence pad, liner, disp #90 ea 08/22/24 (Pads For Women) docusate sodium 100 mg capsule 100 mg PO BID #180 caps 09/15/24 (Stool Softener) pantoprazole 40 mg tablet,delayed 40 mg PO DAILY #90 tabs 09/15/24 release solifenacin 5 mg tablet (Vesicare) 5 mg PO DAILY #30 tabs 11/20/24 ciprofloxacin HCl 500 mg tablet 500 mg PO BID #14 tabs 12/08/24 prucalopride 2 mg tablet 2 mg PO DAILY #30 tabs 12/08/24 (Motegrity) mirabegron 50 mg tablet,extended 50 mg PO DAILY #30 tabs 12/16/24 release 24 hr (Myrbetriq) nitrofurantoin 100 mg PO BID 3 days #6 caps 01/06/25 monohydrate/macrocrystals 100 mg capsule (Macrobid) phenazopyridine 200 mg tablet 200 mg PO BID #6 tabs 01/06/25 (Pyridium) lactobacillus combination no.4 3 3,000 mmu cells PO DAILY #30 caps 01/08/25 billion cell capsule (Probiotic) simethicone 180 mg capsule 180 mg PO BID PRN abdominal 01/08/25 distention #180 caps polyethylene glycol 3350 17 gram 17 g PO DAILY #100 ea 02/03/25 oral powder packet (Miralax) Allergies Allergy/AdvReac Type Severity Reaction Status Date / Time No Known Allergies [NKA] Allergy Verified 02/19/25 00:56 Review of Systems Review of Systems Yes all other systems are reviewed and are negative [facility] Past Medical History Medical History (Updated 02/19/25 @ 07:14 by Justin Arreaga MD) Hx of sigmoidoscopy Post-menopause Diverticulosis Diverticulitis Family history of coronary artery bypass graft Smoking Chronic idiopathic constipation Obesity (BMI 30-39.9) Cigarette smoker Hepatic steatosis Surgical History (Updated 01/02/25 @ 09:38 by Denise London RN) H/O colonoscopy Hx of tonsillectomy Family History Family History Brother Cancer Father Diabetes Mother Diabetes HTN (hypertension) Heart problem Family/Other Diabetes Social History Social History (Updated 01/02/25 @ 09:43 by Denise London RN) Household Members: Children Housing: House Are you a primary resident care coordinator to a significant other at home: No Do you presently have visiting nurse or other home services: No Alcohol intake: never Patient Tobacco Use Status: Former Tobacco user Cigarette Packs Per Day: 0.5 Cigarettes Per Day: 10.0 Smoked in Last 30 Days: No Second Hand Smoke Exposure: No Use of substances other than those prescribed or required for medical reasons: No Advance Directives: No Advance Directives Information Provided: No Do you have a plan to hurt others: No Plan Patient : No Physical Exam ED Vital Signs: Vital Signs - 24 hr 02/19/25 00:55 02/19/25 02:02 02/19/25 05:42 Temperature 98.3 F 98.1 F Pulse Rate 89 74 Respiratory Rate 18 16 12 Blood Pressure 115/58 L 103/62 Pulse Oximetry 99 95 Oxygen Delivery Method Room Air Room Air 02/19/25 07:13 Temperature 98.5 F Pulse Rate 83 Respiratory Rate 16 Blood Pressure 101/55 L Pulse Oximetry 99 Oxygen Delivery Method Room Air BMI result Body Mass Index 39.3 Appearance: Alert. Oriented X3. No acute distress. Eyes: PERRLA, No Nystagmus ENT: Pharynx normal. Oral Mucosa moist Neck: Normal inspection. Neck supple. CVS: Normal heart rate and rhythm. Pulses normal. Respiratory: No respiratory distress. Equal air entry bilateral, no wheezing/rales/rhonchi Abdomen: Soft and diffuse discomfort mid abdomen no rebound tenderness or guarding Bowel sounds are present, no mass palpable, no CVA tenderness Skin: Skin warm and dry. Normal skin color. Normal skin turgor. Extremities: No lower extremity edema. No calf tenderness Neuro: Oriented X 3. No motor deficit. No sensory deficit.No cerebellar signs , cranial nerves II-XII intact Medical Decision Making Medical Decision Making [facility] Narrative: Patient with diffuse abdominal pain with history of diverticulitis with nausea and diarrhea for last 2 -3 days workup showed normal WBC count CT scan showed sigmoid diverticulitis with fluid feel diverticula possible abscess will admit patient for IV antibiotics Differential Diagnosis Differential Diagnoses: The differential diagnosis associated with the presentation includes Gastroenteritis slight diverticulitis/enteritis Admission/Observation Consideration of admission/observation: Escalation of care including admission/observation considered Consult Healthcare Provider Management of the patient was discussed with: Hospitalist Lab Data [facility] Lab Attestation statement: I reviewed the patient's lab results. 02/19/25 01:39 02/19/25 01:39 Labs: Lab Results 02/19/25 Range/Units 01:39 WBC 8.5 (4.8-10.8) X10*3/uL RBC 4.36 (4.20-5.50) X10*6/uL Hgb 13.8 (12.0-16.0) g/dl Hct 40.1 (37.0-47.0) % MCV 92.0 (80.0-98.0) fL MCH 31.7 (27.0-33.0) pg MCHC 34.4 (31.0-35.0) g/dl RDW 11.9 (11.0-16.0) % Plt Count 201 (160-400) X10*3/uL MPV 12.5 H (9.4-12.3) fL Immature Gran % (Auto) 0.2 (0.0-0.4) % Neut % (Auto) 62.5 (45-73) % Lymph % (Auto) 29.0 (20-40) % [place] % (Auto) 6.9 (2-11) % Eos % (Auto) 1.2 (0-4) % Baso % (Auto) 0.2 (0-2) % Lymph # (Auto) 2.5 (1.2-4.9) X10*3/uL [place] # (Auto) 0.6 (0.1-1.2) X10*3/uL Eos # (Auto) 0.1 (0.0-0.4) X10*3/uL Baso # (Auto) 0.0 (0.0-0.2) X10*3/uL Abs Immat Gran (auto) 0.02 (0.00-0.03) X10*3/uL Absolute Neuts (auto) 5.3 (2.0-8.3) x10*3/uL Absolute Nucleated RBC 0.000 (0.0-0.012) X10*3/uL Nucleated RBC % (auto) 0.0 (0.0-0.2) /100WBC Sodium 142 (135-145) mmol/L Potassium 3.6 (3.3-5.1) mmol/L Chloride 111 H (96-108) mmol/L Carbon Dioxide 21 L (22-29) mmol/L Anion Gap 14 (12-20) BUN 19 H (9-16) mg/dL Creatinine 0.97 (0.5-1.4) mg/dL Estim Creat Clear Calc 72.3 Estimated GFR 60 Fasting Glucose 107 H (60-99) mg/dL Calcium 10.0 D (8.4-10.2) mg/dL Magnesium 2.0 (1.6-2.6) mg/dL Total Bilirubin 0.2 (0.0-1.0) mg/dL AST 40 H (5-31) U/L ALT 37 H (0-31) U/L Alkaline Phosphatase 85 (39-117) U/L Troponin I High Sens < 2.7 (<3.5-17.0) ng/L Total Protein 8.0 (6.5-8.0) g/dL Albumin 4.8 (3.5-5.0) g/dL Lipase 44 (8-78) U/L Urine Color Yellow Urine Appearance Clear Urine pH 5.5 (5.0-9.0) Ur Specific [place] 1.020 (1.005-1.025) Urine Protein Negative (Neg-Trace) mg/dL Urine Glucose (UA) Negative (Negative) mg/dL Urine Ketones Negative (Negative) mg/dL Urine Blood Moderate (2+) H (Negative) Urine Nitrite Negative (Negative) Ur Leukocyte Esterase Small (1+) H (Negative) Urine RBC 3-5 H (0-2) /HPF Urine WBC 6-10 H (0-5) /HPF Ur Squamous Epith Cells 0-2 (0-2) /HPF Urine Bacteria None Seen (None Seen) Hyaline Casts 0-2 (0-2) /LPF Radiology Impression Discussion of test interpretation with radiology: I have reviewed the radiologist's reading. Radiologist Impression: Impression: Findings suggest sigmoid diverticulitis with abnormal thickening of the sigmoid colon and mild surrounding stranding. GI follow-up recommended to ensure resolution of the sigmoid thickening. Nonspecific fluid density structure abutting the sigmoid may reflect a fluid-filled diverticulum or small early abscess. Close continued follow-up recommended. This document has been electronically signed by: Roni Arreola MD on 02/19/2025 06:52:07 Medications Administered Discontinued Medications Generic Name Dose Route Start Last Admin Trade Name Freq PRN Reason Stop Dose Admin Sodium Chloride 1,000 mls @ 999 mls/hr 02/19/25 01:37 02/19/25 03:10 Ns IV 02/19/25 02:37 Infused .Q1H1M ONE Infusion Morphine Sulfate 4 mg 02/19/25 01:37 02/19/25 02:02 Morphine Sulfate 4 Mg/Ml Cartridge IVPUSH 02/19/25 01:38 4 mg ONCE ONE Administration Protocol Ondansetron HCl 4 mg 02/19/25 01:37 02/19/25 02:02 Ondansetron Hcl 4 Mg/2 Ml Vial IVPUSH 02/19/25 01:38 4 mg ONCE ONE Administration Discharge Plan Discharge Clinical Impression: Diverticulitis Patient Disposition: Admitted As Inpatient Print Language: Polish
[2025-02-19 01:44] LABS: MANUAL DIFF FLAG NO
[2025-02-19 01:52] LABS: Appearance Urine Clear; Basophils Percent Auto 0.2 % (0-2); Color Urine Yellow; Eosinophils Absolute Auto 0.1 X10*3/uL (0.0-0.4); Eosinophils Percent Auto 1.2 % (0-4); Glucose Urine UA Negative (Negative); Hematocrit 40.1 % (37.0-47.0); Hemoglobin 13.8 g/dl (12.0-16.0); Imm Gran Abs Auto 0.02 X10*3/uL (0.00-0.03); Imm Gran Pct Auto 0.2 % (0.0-0.4); Leukocyte Esterase Urine Small (1+) (Negative); Lymphocytes Absolute Auto 2.5 X10*3/uL (1.2-4.9); Mean Corpuscular HGB Conc 34.4 g/dl (31.0-35.0); Mean Corpuscular Hemoglobin 31.7 pg (27.0-33.0); Mean Platelet Volume 12.5 fL (9.4-12.3); Monocytes Absolute Auto 0.6 X10*3/uL (0.1-1.2); Monocytes Percent Auto 6.9 % (2-11); Neutrophils Absolute Auto 5.3 x10*3/uL (2.0-8.3); Neutrophils Percent Auto 62.5 % (45-73); Nitrite Urine Negative (Negative); PH 5.5 (5.0-9.0); Platelet Count 201 X10*3/uL (160-400); Red Blood Count 4.36 X10*6/uL (4.20-5.50); Red Cell Distribution Width 11.9 % (11.0-16.0); UMIC TRIGGER UACC YES; Urine Blood Moderate (2+) (Negative); Urine Ketones Negative (Negative); Urine Protein Negative (Neg-Trace); White Blood Count 8.5 X10*3/uL (4.8-10.8)
[2025-02-19] MEDS: Morphine Sulfate 4 MG/ML CARTRIDGE IVPUSH ×2 (02:02→07:42)
[2025-02-19] MEDS: ondansetron HCL 4 MG/2 ML VIAL IVPUSH ×2 (02:02→07:56)
[2025-02-19] MEDS: 0.9 % Sodium Chloride 1,000 ML 999 ML IV (02:03)
[2025-02-19 02:04] LABS: Alanine Aminotransferase 37 U/L (0-31); Albumin Level 4.8 g/dL (3.5-5.0); Alkaline Phosphatase 85 U/L (39-117); Anion Gap 14 (12-20); Aspartate Amino Transferase 40 U/L (5-31); Bilirubin Total 0.2 mg/dL (0.0-1.0); Blood Urea Nitrogen 19 mg/dL (9-16); Carbon Dioxide 21 mmol/L (22-29); Chloride 111 mmol/L (96-108); Creatinine Clr Calc Pharmacy 72.3; Estimated Glomerular Filt Rate 60; Glucose Fasting 107 mg/dL (60-99); Lipase 44 U/L (8-78); Potassium 3.6 mmol/L (3.3-5.1); Sodium 142 mmol/L (135-145)
[2025-02-19 02:07] LABS: Bacteria Urine None Seen (None Seen); Hyaline Casts Urine 0-2 /LPF (0-2); Squamous Epithelial Cell Urine 0-2 /HPF (0-2); UACC Culture Trigger YES
--- NOTE | 2025-02-19 02:09 | PC.NURSE ---
Patient medicated per MAR, call bennett in patient's reach, family at bedside.
[2025-02-19 02:10] LABS: Troponin-I High Sensitivity < 2.7 ng/L (<3.5-17.0)
[2025-02-19] MEDS: Piperacillin Sodium/Tazobactam 3.375 GM in 0.9 % Sodium Chloride 50 ML IV ×3 (08:01→18:11)
--- NOTE | 2025-02-19 08:07 | P.HPHOSP_ITS ---
History of Present Illness Date of Service: 02/19/25 Chief Complaint: abdominal pain The patient is a Greenlandic-speaking 54-year-old female who presents to [facility] ED with complaints of abdominal pain. The history is obtained with the help of a Green[place]ic-speaking inspector plumbing. Patient reports that she had generalized abdominal symptoms starting earlier this week but on the evening prior to arrival she had worsening of upper abdominal/epigastric pain which was pressure- like in nature and constant. She reports associated nausea without vomiting. She endorses loose stools. She denies any bleeding. She reports that her abdominal pain is now also more prevalent in the left lower quadrant. She reports that her current symptoms are different than her prior episodes of diverticulitis. She reports that she has started teres appetite for weight loss (later confirms she has also been diagnosed with diabetes but is not any specific medication for this alone). In the emergency room the patient underwent workup including CT scan of the abdomen and pelvis which showed findings suggestive of sigmoid diverticulitis with abnormal thickening of the sigmoid colon and mild surrounding stranding. There was also a fluid-filled density abutting the sigmoid which may reflect small early abscess. The patient was treated with intravenous fluids IV analgesics IV antiemetics and IV antibiotics. She continues to have intolerance to oral intake and pain hence will be admitted for further workup and treatment. Review of Systems 2 Review of Systems: Negative except HPI/interval history. [facility] Medical History (Updated 02/19/25 @ 07:14 by Justin Arreaga MD) Hx of sigmoidoscopy Post-menopause Diverticulosis Diverticulitis Family history of coronary artery bypass graft Smoking Chronic idiopathic constipation Obesity (BMI 30-39.9) Cigarette smoker Hepatic steatosis Family History Brother Cancer Father Diabetes Mother Diabetes HTN (hypertension) Heart problem Family/Other Diabetes Surgical History (Updated 01/02/25 @ 09:38 by Denise London RN) H/O colonoscopy Hx of tonsillectomy Social History (Updated 01/02/25 @ 09:43 by Denise London RN) Household Members: Children Housing: House Are you a primary animal care taker to a significant other at home: No Do you presently have visiting nurse or other home services: No Alcohol intake: never Patient Tobacco Use Status: Former Tobacco user Cigarette Packs Per Day: 0.5 Cigarettes Per Day: 10.0 Smoked in Last 30 Days: No Second Hand Smoke Exposure: No Use of substances other than those prescribed or required for medical reasons: No Have you been hit, kicked, punched, or otherwise hurt by someone within the past year? If so, by whom?: No Do you feel safe in your current relationship?: No Current Relationship Is there a partner from a previous relationship who is making you feel unsafe now?: No Are you made to feel afraid or neglected: No Advance Directives: No Advance Directives Information Provided: No Do you have a plan to hurt others: No Plan Recently lost weight without trying: No How much weight loss: Not applicable Nutrition Risks: No Nutritional Risk Patient : No : No Poor oral hygiene: No Meds Allergies Allergy/AdvReac Type Severity Reaction Status Date / Time No Known Allergies [NKA] Allergy Verified 02/19/25 00:56 Active Medications: Current Medications Acetaminophen (Acetaminophen 325 Mg Tablet) 650 mg PO Q6H PRN PRN Reason: Pain, Mild 1-3,fever,headache Calcium Carbonate (Calcium Carbonate 750 Mg Tab.Chew) 750 mg PO Q4H PRN PRN Reason: Heartburn Enoxaparin Sodium (Enoxaparin Sodium 40 Mg/0.4 Ml Syringe) 40 mg SUBCUT Q24H JANE Lactated Ringer's (Lr) 1,000 mls @ 100 mls/hr IVCONT .Q10H JANE Piperacillin Sod/Tazobactam (Sod 3.375 gm/ Sodium Chloride) 50 mls @ 100 mls/hr IV Q6H JANE Magnesium Hydroxide (Milk Of Magnesia 30 Ml Oral.Susp) 30 ml PO DAILY PRN PRN Reason: Constipation Melatonin (Melatonin 3 Mg Tablet) 6 mg PO BEDTIME PRN PRN Reason: Insomnia Sodium Chloride (0.9 % Sodium Chloride Flush 3 Ml Syringe) 3 ml IVFLUSH QSHIFT [facility] Home Medications ?Medication ?Instructions ?Recorded ?Confirmed ?Last Taken ?Type acetaminophen 325 mg tablet 650 mg PO Q4H PRN Pain 02/19/25 02/19/25 Unknown History docusate sodium 100 mg capsule 100 mg PO BID PRN Constipation 02/19/25 02/19/25 Unknown History (Stool Softener) ibuprofen 200 mg tablet 200 mg PO Q6H PRN Pain 02/19/25 02/19/25 Unknown History loratadine 10 mg tablet (Claritin) 10 mg PO DAILY PRN Allergy Symptoms 02/19/25 02/19/25 Unknown History polyethylene glycol 3350 17 gram 17 g PO DAILY PRN Constipation 02/19/25 02/19/25 Unknown History oral powder packet (Miralax) prucalopride 2 mg tablet 2 mg PO DAILY PRN Constipation 02/19/25 02/19/25 Unknown History (Motegrity) tirzepatide (weight loss) 2.5 2.5 mg subcut TU 02/19/25 02/19/25 02/17/25 History mg/0.5 mL subcutaneous pen injector (Zepbound) Physical Exam 2 Vital Signs and Narrative: Vital Signs: Last Vital Signs Temp 98.5 F 02/19/25 07:13 Pulse 83 02/19/25 07:13 Resp 16 02/19/25 07:42 BP 101/55 L 02/19/25 07:13 Pulse Ox 99 02/19/25 07:13 O2 Del Method Room Air 02/19/25 07:13 BMI result Body Mass Index 39.3 Const: Other: Constitutional - Awake and Alert, No apparent distress Eyes - PERRLA, EOMI Cardiovascular - S1S2, RRR, No edema Respiratory - Normal lung expansion, Normal respiratory effort, No respiratory distress, CTA bilaterally Gastrointestinal - upper quad and llq ttp without rebound or guarding; soft - No CVA tenderness Extremities - no calf tenderness bilaterally, no swelling Musculoskeletal - Normal inspection, normal ROM Skin - Warm/Dry Neurological - Alert & oriented x3, No focal deficit Psychological - Appropriate affect Results Labs 02/19/25 01:39 02/19/25 01:39 Labs: Laboratory Results - last 24 hr 02/19/25 01:39 MCV 92.0 MCH 31.7 MCHC 34.4 RDW 11.9 Plt Count 201 MPV 12.5 H Immature Gran % (Auto) 0.2 Neut % (Auto) 62.5 Lymph % (Auto) 29.0 [place] % (Auto) 6.9 Eos % (Auto) 1.2 Baso % (Auto) 0.2 Lymph # (Auto) 2.5 [place] # (Auto) 0.6 Eos # (Auto) 0.1 Baso # (Auto) 0.0 Abs Immat Gran (auto) 0.02 Absolute Neuts (auto) 5.3 Absolute Nucleated RBC 0.000 Nucleated RBC % (auto) 0.0 Anion Gap 14 Estim Creat Clear Calc 72.3 Estimated GFR 60 Fasting Glucose 107 H Calcium 10.0 D Magnesium 2.0 Total Bilirubin 0.2 AST 40 H ALT 37 H Alkaline Phosphatase 85 Troponin I High Sens < 2.7 Total Protein 8.0 Albumin 4.8 Lipase 44 Urine Color Yellow Urine Appearance Clear Urine pH 5.5 Ur Specific [place] 1.020 Urine Protein Negative Urine Glucose (UA) Negative Urine Ketones Negative Urine Blood Moderate (2+) H Urine Nitrite Negative Ur Leukocyte Esterase Small (1+) H Urine RBC 3-5 H Urine WBC 6-10 H Ur Squamous Epith Cells 0-2 Urine Bacteria None Seen Hyaline Casts 0-2 Assessment and Plan (1) Diverticulitis: Status: Acute Plan 54 yo F with prior diverticultis, IBS, GERD, chronic idiopathic constipation, obesity and ? recently diagnosed DM started in tirzepatide about 2 weeks prior to hospitalization. She presents with abdominal pain. Work up in the ED consistent with acute sigmoid diverticulitis + possible early abscess. 1. Acute sigmoid diverticulitis with possible small early abscess IVF, IV abx, IV analgseics, IV anti-emetics NPO for now Gen Surg consult 2. ? DM pt intially stated tirzepatide for weight loss but later confirmed she has also been diagnosed with DM recently no A1C on file, will check not on meal time insulin, check POC as needed and/or if HBA1C significantly elevated 3. Obesity outpt f/u weight loss encouraged 4. GERD/IBS continue baseline meds once med rec completed Full Code DVT pptx, Lovenox Pt with acute sigmoid diverticulitis with possible early abscess with multiple risk factors including DM, obesity therefore expected to require at a minimum 2 midnights in the hospital for treatment. Therefore, will be admitted as inpatient. Quality Stroke Does the patient have a stroke diagnosis?: No VTE Prior VTE?: No VTE Risk Level:: Medical - moderate - high VTE Device Contraindication: N/A - Device Ordered VTE Drug Contraindication: N/A - Med Ordered
[2025-02-19 08:23] LABS: Lactic Acid 0.8 mmol/L (0.5-2.0)
[2025-02-19] MEDS: Lactated Ringers 1,000 ML 100 ML IVCONT ×2 (08:41→18:17)
[2025-02-19] MEDS: Enoxaparin Sodium 40 MG/0.4 ML SYRINGE SUBCUT (09:19)
--- NOTE | 2025-02-19 09:27 | P.CONGS_ITS ---
History of Present Illness Consult details Consult date: 02/19/25 Reason for consult: abdominal pain Requesting physician: Nilesh Cueva Narrative: 54 years old with PMH of obesity, OAB, hx of diverticulitis, GERD and diabetes who presented to the ED with complaints of abdominal pain. She reports this started a few days ago. It was mostly in her upper abdomen. The pain became severe and she sought evaluation in the ED. She reports this feels different from her prior episodes of diverticulitis as her pain with those episodes were more in the left lower abdomen. The pain is associated with nausea and diarrhea. She was started on Tirzepatide on 02/09 and received the last dose 02/17 and then developed her symptoms. Work up in the ED included CBC, BMP, LFTs. No leukocytosis. CT scan abd/pelvis showed mild sigmoid wall thickening with mild stranding with small rounded fluid density structure abutting the dorsal surface of the sigmoid colon, large diverticulum vs. very small early abscess. She reports multiple prior episodes of diverticulitis. She never had to be admitted in the past and was always discharged on oral antibiotics. She denies fevers, chills, vomiting, constipation, melena, hematochezia, dysruia. She had a flex sigmoidoscopy in 10/02 showed abnormal mucosa in sigmoid colon with severe diverticulosis (biopsy negative), hyperplastic appearing polyps in rectum and hyperplastic sigmoid polyp, internal hemorrhoids. Review of Systems 2 Review of Systems: Yes all other systems are reviewed and are negative [facility] Past Medical History Medical History (Updated 02/19/25 @ 07:14 by Justin Arreaga MD) Hx of sigmoidoscopy Post-menopause Diverticulosis Diverticulitis Family history of coronary artery bypass graft Smoking Chronic idiopathic constipation Obesity (BMI 30-39.9) Cigarette smoker Hepatic steatosis Family History Family History Brother Cancer Father Diabetes Mother Diabetes HTN (hypertension) Heart problem Family/Other Diabetes Surgical History Surgical History (Updated 01/02/25 @ 09:38 by Denise London RN) H/O colonoscopy Hx of tonsillectomy Social History Social History (Updated 01/02/25 @ 09:43 by Denise London RN) Household Members: Children Housing: House Are you a primary health care law specialist to a significant other at home: No Do you presently have visiting nurse or other home services: No Alcohol intake: never Patient Tobacco Use Status: Former Tobacco user Cigarette Packs Per Day: 0.5 Cigarettes Per Day: 10.0 Smoked in Last 30 Days: No Second Hand Smoke Exposure: No Use of substances other than those prescribed or required for medical reasons: No Advance Directives: No Advance Directives Information Provided: No Do you have a plan to hurt others: No Plan Patient : No Meds Allergies Allergy/AdvReac Type Severity Reaction Status Date / Time No Known Allergies [NKA] Allergy Verified 02/19/25 00:56 Active Medications: Current Medications Acetaminophen (Acetaminophen 325 Mg Tablet) 650 mg PO Q6H PRN PRN Reason: Pain, Mild 1-3,fever,headache Calcium Carbonate (Calcium Carbonate 750 Mg Tab.Chew) 750 mg PO Q4H PRN PRN Reason: Heartburn Enoxaparin Sodium (Enoxaparin Sodium 40 Mg/0.4 Ml Syringe) 40 mg SUBCUT Q24H [facility] Last Admin: 02/19/25 09:19 Dose: 40 mg Lactated Ringer's (Lr) 1,000 mls @ 100 mls/hr IVCONT .Q10H [facility] Last Admin: 02/19/25 08:41 Dose: 100 mls/hr Piperacillin Sod/Tazobactam (Sod 3.375 gm/ Sodium Chloride) 50 mls @ 100 mls/hr IV Q6H [facility] Magnesium Hydroxide (Milk Of Magnesia 30 Ml Oral.Susp) 30 ml PO DAILY PRN PRN Reason: Constipation Melatonin (Melatonin 3 Mg Tablet) 6 mg PO BEDTIME PRN PRN Reason: Insomnia Sodium Chloride (0.9 % Sodium Chloride Flush 3 Ml Syringe) 3 ml IVFLUSH QSHIFT [facility] Home Medications ?Medication ?Instructions ?Recorded ?Confirmed ?Last Taken ?Type tirzepatide (weight loss) 2.5 2.5 mg subcut QWEEK 02/19/25 Unknown History mg/0.5 mL subcutaneous pen injector (Zepbound) Physical Exam 2 Vital Signs: Vital Signs: Last Vital Signs Temp 97.5 F 02/19/25 08:18 Pulse 70 02/19/25 08:18 Resp 18 02/19/25 08:18 BP 107/64 02/19/25 08:18 Pulse Ox 99 02/19/25 08:18 O2 Del Method Room Air 02/19/25 08:18 BMI result Body Mass Index 39.3 Const: General: comfortable, no acute distress and alert Nutritional Appearance: obese Orientation/consciousness: patient oriented x3 Resp: Effort & Inspection: normal respiratory effort and not labored GI: Other: corpulent abdomen Inspection: No distended and No scar Palpation (GI): Soft to palpation, Tenderness to palpation present (GI) (mild epigastric and left mid abdominal tenderness) with no rebound tenderness, no guarding and not rigid Percussion: Yes normal to percussion Skin: General skin exam: no rashes or lesions noted and no jaundice Neuro: General: patient oriented x3 and moves all extremities Results Labs 02/19/25 01:39 02/19/25 01:39 Labs: Abnormal lab results 02/19/25 Range/Units 01:39 MPV 12.5 H (9.4-12.3) fL Chloride 111 H (96-108) mmol/L Carbon Dioxide 21 L (22-29) mmol/L BUN 19 H (9-16) mg/dL Fasting Glucose 107 H (60-99) mg/dL AST 40 H (5-31) U/L ALT 37 H (0-31) U/L Urine Blood Moderate (2+) H (Negative) Ur Leukocyte Esterase Small (1+) H (Negative) Urine RBC 3-5 H (0-2) /HPF Urine WBC 6-10 H (0-5) /HPF Short CBC 02/19/25 Range/Units 01:39 WBC 8.5 (4.8-10.8) X10*3/uL Hgb 13.8 (12.0-16.0) g/dl Hct 40.1 (37.0-47.0) % Plt Count 201 (160-400) X10*3/uL BMP 02/19/25 01:39 Sodium 142 Potassium 3.6 Chloride 111 H Carbon Dioxide 21 L BUN 19 H Creatinine 0.97 Calcium 10.0 D Liver Function 02/19/25 Range/Units 01:39 Total Bilirubin 0.2 (0.0-1.0) mg/dL AST 40 H (5-31) U/L ALT 37 H (0-31) U/L Alkaline Phosphatase 85 (39-117) U/L Albumin 4.8 (3.5-5.0) g/dL Urine 02/19/25 Range/Units 01:39 Urine Color Yellow Urine Appearance Clear Urine pH 5.5 (5.0-9.0) Ur Specific [place] 1.020 (1.005-1.025) Urine Protein Negative (Neg-Trace) mg/dL Urine Glucose (UA) Negative (Negative) mg/dL All other labs normal. Imaging Abdomen CT scan report/results: report reviewed and image reviewed Assessment and Plan (1) Diverticulitis: Status: Acute Plan 54 years old with PMH of obesity, OAB, hx of diverticulitis, GERD and diabetes with acute onset of upper abdominal pain for 2 days associated with nausea and diarrhea. She reports this pain is different from her prior episodes of diverticulitis. She was admitted to the medical service for further treatment of the diverticulitis. General surgery was consulted for diverticulitis with possible abscess. Overall, she is clinically appearing well and her abd exam is benign with mild epigastric and left sided tenderness. CT scan shows only very mild inflammatory changes of the sigmoid, same location as her prior episodes. Her symptoms may be secondary to medication adverse effect with concomitant mild diverticulitis. Flex sig in 10/02 demonstrated multiple medium and large mouthed diverticula in left sided colon and round fluid density of the sigmoid seen on imaging likely represents a large diverticulum instead of an abscess given her benign presentation. She has no leukocytosis. Would recommend continuing supportive treatment for now with IV abx. Can advance to clear liquids. Will continue to follow. Procedures Date of Service Date of Service: 02/19/25
--- NOTE | 2025-02-19 09:36 | PC.NURSE ---
Assumed care of pt at 645 am. Pt A&O X4 VSS NAD except has abd pain and provider was notified- also nauseated - new orders received and administered for pain and nausea. Pain persists. Pt ambulated to BR well independently. VSS. IVF infusing as ordered. Pt aware of plan for admit.
[2025-02-19 10:16] LABS: Estimated Average Glucose 111 mg/dL; Hemoglobin A1C 133.5788 umol/L; Hemoglobin A1c % 5.5 % (<6.0); Total Hemoglobin (HGBA1C) 3610.9181 umol/L
--- NOTE | 2025-02-19 10:40 | PC.NURSE ---
Report called to Overflow RN.
--- NOTE | 2025-02-19 10:54 | PHA.MEDREC ---
Addendum entered by Jocelyne Amaya RPh 02/19/25 11:10: Reviewed by pharmacist Original Note: Pharmacy Consult ? Medication Reconciliation Pharmacy has completed the medication reconciliation. Spoke with pt and she confirmed her medications. Pt confirmed her Zepbound and confirmed she takes it on Tuesdays and took the 2nd dose this past Sunday. Pt states she alternates Ibuprofen and Tylenol as needed for pain.
--- NOTE | 2025-02-19 11:38 | PC.NURSE ---
Addendum entered by Nathalie Clifton RN 02/19/25 11:41: Patient [facility]. Alert and oriented, primarily serbian speaking. Lungs clear bilat. Respirations even and non-labored. Abdomen large soft with positive bowel sounds. c/o LLQ abdominal pain. Positive pedal pulses with no edema. IVF's infusing as ordered. Surgery consulted with no surgery required at this time. Pending in-patient bed assignment. Original Note: Patient is a Tamazight-speaking 54-year-old female who presents to [facility] with complaints of abdominal pain. Patient reports that she had generalized abdominal symptoms starting earlier this week but on the evening prior to arrival she had worsening of upper abdominal/epigastric pain which was pressure-like in nature and constant. She reports associated nausea without vomiting. She endorses loose stools. She reports that her abdominal pain is now also more prevalent in the left lower quadrant. She reports that her current symptoms are different than her prior episodes of diverticulitis. She reports that she has started teres appetite for weight loss (later confirms she has also been diagnosed with diabetes but is not any specific medication for this alone). CT scan of the abdomen and pelvis which showed findings suggestive of sigmoid diverticulitis with abnormal thickening of the sigmoid colon and mild surrounding stranding. There was also a fluid-filled density abutting the sigmoid which may reflect small early abscess. Medical History Hx of sigmoidoscopy Post-menopause Diverticulosis Diverticulitis Family history of coronary artery bypass graft Smoking Chronic idiopathic constipation Obesity (BMI 30-39.9) Cigarette smoker Hepatic steatosis
[2025-02-19] MEDS: oxyCODONE HCl Immed Release 5 MG TABLET PO (18:16)
[2025-02-19] MEDS: Simethicone 80 MG TAB.CHEW 160 MG PO (18:16)
--- NOTE | 2025-02-19 20:07 | PC.NURSE ---
pt states pain 6/10 with goal of 4/10. She had recent oxycodone and made aware this RN would page MD for continued pain. She stated she does not need anything at this time and she would wait for it to be due again or she will ring if needed.
[2025-02-19] MEDS: Calcium Carbonate 750 MG TAB.CHEW PO (20:47)
[2025-02-20] MEDS: 0.9 % Sodium Chloride Flush 3 ML SYRINGE IVFLUSH ×2 (01:26→08:28)
[2025-02-20] MEDS: Piperacillin Sodium/Tazobactam 3.375 GM in 0.9 % Sodium Chloride 50 ML IV ×4 (01:27→18:39)
[2025-02-20 03:21] VITALS: BP 102/58; PULSE 68; RESP 18; TEMP 36.4; O2SAT 97
[2025-02-20] MEDS: Lactated Ringers 1,000 ML 100 ML IVCONT ×2 (05:40→15:33)
[2025-02-20 06:20] LABS: Hematocrit 36.1 % (37.0-47.0); Hemoglobin 11.7 g/dl (12.0-16.0); Mean Corpuscular HGB Conc 32.4 g/dl (31.0-35.0); Mean Corpuscular Volume 95.5 fL (80.0-98.0); Mean Platelet Volume 12.6 fL (9.4-12.3); Platelet Count 162 X10*3/uL (160-400); Red Blood Count 3.78 X10*6/uL (4.20-5.50); Red Cell Distribution Width 12.1 % (11.0-16.0); White Blood Count 6.7 X10*3/uL (4.8-10.8)
[2025-02-20 06:36] LABS: Anion Gap 11 (12-20); Blood Urea Nitrogen 10 mg/dL (9-16); Calcium 8.6 mg/dL (8.4-10.2); Carbon Dioxide 26 mmol/L (22-29); Chloride 108 mmol/L (96-108); Estimated Glomerular Filt Rate > 60; Glucose Random 84 mg/dL (60-115); Potassium 3.7 mmol/L (3.3-5.1); Sodium 141 mmol/L (135-145)
[2025-02-20 07:32] VITALS: BP 97/60; PULSE 66; RESP 18; TEMP 36.4; O2SAT 96
[2025-02-20] MEDS: Enoxaparin Sodium 40 MG/0.4 ML SYRINGE SUBCUT (08:31)
--- NOTE | 2025-02-20 08:33 | P.PNGS_ITS ---
Subjective Subjective Date of Service: 02/20/25 Interval history: Overall patient feels improved this morning. She reports passing flatus, no bowel movement. Abdominal pain is improved. Physical Exam 2 Vital Signs: Vital Signs: Last Vital Signs Temp 97.6 F 02/20/25 07:32 Pulse 66 02/20/25 07:32 Resp 18 02/20/25 07:32 BP 97/60 02/20/25 07:32 Pulse Ox 96 02/20/25 07:32 O2 Del Method Room Air 02/20/25 07:32 BMI result Body Mass Index 39.3 Const: General: comfortable Nutritional Appearance: well nourished O rientation/consciousness: patient oriented x3 Limitations: no limitations Resp: Effort & Inspection: normal respiratory effort GI: Inspection: Yes Abdominal panniculus present Palpation (GI): Soft to palpation and Tenderness to palpation present (GI) in the epigastrum and in the LLQ Percussion: Yes normal to percussion Skin: Other: Warm, dry, no rashes Neuro: General: patient oriented x3 Objective Data Active Medications Acetaminophen (Acetaminophen 325 Mg Tablet) 650 mg PO Q6H PRN PRN Reason: Pain, Mild 1-3,fever,headache Calcium Carbonate (Calcium Carbonate 750 Mg Tab.Chew) 750 mg PO Q4H PRN PRN Reason: Heartburn Last Admin: 02/19/25 20:47 Dose: 750 mg Documented By: OMAYRA Docusate Sodium (Docusate Sodium 100 Mg Capsule) 100 mg PO BID PRN PRN Reason: Constipation Enoxaparin Sodium (Enoxaparin Sodium 40 Mg/0.4 Ml Syringe) 40 mg SUBCUT Q24H [facility] Last Admin: 02/19/25 09:19 Dose: 40 mg Documented By: EVANS Lactated Ringer's (Lr) 1,000 mls @ 100 mls/hr IVCONT .Q10H [facility] Last Admin: 02/20/25 05:40 Dose: 100 mls/hr Documented By: OMAYRA Piperacillin Sod/Tazobactam (Sod 3.375 gm/ Sodium Chloride) 50 mls @ 100 mls/hr IV Q6H [facility] Last Infusion: 02/20/25 08:24 Dose: Infused Documented By: IZA Magnesium Hydroxide (Milk Of Magnesia 30 Ml Oral.Susp) 30 ml PO DAILY PRN PRN Reason: Constipation Melatonin (Melatonin 3 Mg Tablet) 6 mg PO BEDTIME PRN PRN Reason: Insomnia Morphine Sulfate (Morphine Sulfate 2 Mg/Ml Cartridge) 2 mg IVPUSH Q4H PRN; Protocol PRN Reason: Pain, Severe (Pain Scale 7-10) Oxycodone HCl (Oxycodone Hcl Immed Release 5 Mg Tablet) 5 mg PO Q6H PRN PRN Reason: Pain, Moderate(Pain Scale 4-6) Last Admin: 02/19/25 18:16 Dose: 5 mg Documented By: JULIANN Polyethylene Glycol (Polyethylene Glycol 3350 17 Gm Powd.Pack) 17 gm PO DAILY PRN PRN Reason: Constipation Simethicone (Simethicone 80 Mg Tab.Chew) 160 mg PO BID PRN PRN Reason: Gas Last Admin: 02/19/25 18:16 Dose: 160 mg Documented By: JULIANN Sodium Chloride (0.9 % Sodium Chloride Flush 3 Ml Syringe) 3 ml IVFLUSH QSHIFT [facility] Last Admin: 02/20/25 01:26 Dose: 3 ml Documented By: OMAYRA Labs 02/20/25 05:41 02/20/25 05:41 Labs: Laboratory Results - last 24 hr 02/19/25 02/20/25 01:39 05:41 MCV 95.5 MCH 31.0 MCHC 32.4 RDW 12.1 Plt Count 162 MPV 12.6 H Absolute Nucleated RBC 0.000 Nucleated RBC % (auto) 0.0 Anion Gap 11 L Estim Creat Clear Calc 77.0 Estimated GFR > 60 Random Glucose 84 Estimat Average Glucose 111 Hemoglobin A1c % 5.5 Calcium 8.6 D Procedures Date of Service Date of Service: 02/20/25 Progress Note: A&P Assessment and plan (1) Diverticulitis: Status: Acute Plan 54-year-old female with a past medical history of obesity, GERD, diabetes with a prior history of diverticulitis presenting with 2 day history of nausea and diarrhea. She is admitted to the hospitalist service for treatment of diverticulitis. Overall she is improving with less abdominal pain this morning. Laboratories revealed normal WBC. She tolerated clear liquid and could be advanced as tolerated. Time Spent With Patient Time: Total time managing care of this patient today ____ minutes. Quality Stroke Does the patient have a stroke diagnosis?: No VTE Prior VTE?: No VTE Risk Level:: Medical - moderate - high VTE Device Contraindication: N/A - Device Ordered VTE Drug Contraindication: N/A - Med Ordered
--- NOTE | 2025-02-20 08:36 | PM.PNGS ---
Subjective Subjective Date of Service: 02/20/25 Physical Exam Vital Signs: Vital Signs: Last Vital Signs Temp 97.6 F 02/20/25 07:32 Pulse 66 02/20/25 07:32 Resp 18 02/20/25 07:32 BP 97/60 02/20/25 07:32 Pulse Ox 96 02/20/25 07:32 O2 Del Method Room Air 02/20/25 07:32 BMI result Body Mass Index 39.3 Objective Data Active Medications Acetaminophen (Acetaminophen 325 Mg Tablet) 650 mg PO Q6H PRN PRN Reason: Pain, Mild 1-3,fever,headache Calcium Carbonate (Calcium Carbonate 750 Mg Tab.Chew) 750 mg PO Q4H PRN PRN Reason: Heartburn Last Admin: 02/19/25 20:47 Dose: 750 mg Documented By: OMAYRA Docusate Sodium (Docusate Sodium 100 Mg Capsule) 100 mg PO BID PRN PRN Reason: Constipation Enoxaparin Sodium (Enoxaparin Sodium 40 Mg/0.4 Ml Syringe) 40 mg SUBCUT Q24H [facility] Last Admin: 02/20/25 08:31 Dose: 40 mg Documented By: IZA Lactated Ringer's (Lr) 1,000 mls @ 100 mls/hr IVCONT .Q10H [facility] Last Admin: 02/20/25 05:40 Dose: 100 mls/hr Documented By: OMAYRA Piperacillin Sod/Tazobactam (Sod 3.375 gm/ Sodium Chloride) 50 mls @ 100 mls/hr IV Q6H [facility] Last Infusion: 02/20/25 08:24 Dose: Infused Documented By: IZA Magnesium Hydroxide (Milk Of Magnesia 30 Ml Oral.Susp) 30 ml PO DAILY PRN PRN Reason: Constipation Melatonin (Melatonin 3 Mg Tablet) 6 mg PO BEDTIME PRN PRN Reason: Insomnia Morphine Sulfate (Morphine Sulfate 2 Mg/Ml Cartridge) 2 mg IVPUSH Q4H PRN; Protocol PRN Reason: Pain, Severe (Pain Scale 7-10) Oxycodone HCl (Oxycodone Hcl Immed Release 5 Mg Tablet) 5 mg PO Q6H PRN PRN Reason: Pain, Moderate(Pain Scale 4-6) Last Admin: 02/19/25 18:16 Dose: 5 mg Documented By: JULIANN Polyethylene Glycol (Polyethylene Glycol 3350 17 Gm Powd.Pack) 17 gm PO DAILY PRN PRN Reason: Constipation Simethicone (Simethicone 80 Mg Tab.Chew) 160 mg PO BID PRN PRN Reason: Gas Last Admin: 02/19/25 18:16 Dose: 160 mg Documented By: JULIANN Sodium Chloride (0.9 % Sodium Chloride Flush 3 Ml Syringe) 3 ml IVFLUSH QSHIFT [facility] Last Admin: 02/20/25 08:28 Dose: 3 ml Documented By: IZA Labs 02/20/25 05:41 02/20/25 05:41 Labs: Laboratory Results - last 24 hr 02/19/25 02/20/25 01:39 05:41 MCV 95.5 MCH 31.0 MCHC 32.4 RDW 12.1 Plt Count 162 MPV 12.6 H Absolute Nucleated RBC 0.000 Nucleated RBC % (auto) 0.0 Anion Gap 11 L Estim Creat Clear Calc 77.0 Estimated GFR > 60 Random Glucose 84 Estimat Average Glucose 111 Hemoglobin A1c % 5.5 Calcium 8.6 D Procedures Date of Service Date of Service: 02/20/25 Progress Note: A&P Time Spent With Patient Time: Total time managing care of this patient today ____ minutes. Quality Stroke Does the patient have a stroke diagnosis?: No VTE Prior VTE?: No VTE Risk Level:: Medical - moderate - high VTE Device Contraindication: N/A - Device Ordered VTE Drug Contraindication: N/A - Med Ordered
--- NOTE | 2025-02-20 10:21 | MHC.CM.PN ---
CM MET WITH PT AT BEDSIDE WITH OPERATIONS PLANNER. 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 NO SERVICES. PT DECLINES TO COMPLETE A HCP AT THIS TIME BUT WILLING TO TAKE A BLANK COPY HOME SHOULD SHE CHANGE HER MIND. COPY PROVIDED. PCP DR. EMERY AT [facility]. DP: HOME, NO SERVICES ANTICIPATED. PT HAS OWN RIDE HOME. CM WILL CONTINUE TO FOLLOW FOR ANY CHANGE TO DC PLAN/NEEDS.
--- NOTE | 2025-02-20 14:39 | HO.PM.IMPN ---
Subjective Subjective Date of Service: 02/20/25 Interval History: Acute diverticulitis Review of Systems Left lower quadrant soreness improving Has some urinary frequency Physical Exam Vital Signs: Vital Signs: Last Vital Signs Temp 97.6 F 02/20/25 07:32 Pulse 66 02/20/25 07:32 Resp 18 02/20/25 07:32 BP 97/60 02/20/25 07:32 Pulse Ox 96 02/20/25 07:32 O2 Del Method Room Air 02/20/25 07:32 BMI result Body Mass Index 39.3 Respiratory - air entry fair , no rales or wheezing Gastrointestinal - upper quad and llq ttp without rebound or guarding; soft - No CVA tenderness Extremities - no calf tenderness bilaterally, no swelling Musculoskeletal - Normal inspection, normal ROM Skin - Warm/Dry Neurological - Alert & oriented x3, No focal deficit Psychological - Appropriate affect Objective Data Active Medications Acetaminophen (Acetaminophen 325 Mg Tablet) 650 mg PO Q6H PRN PRN Reason: Pain, Mild 1-3,fever,headache Calcium Carbonate (Calcium Carbonate 750 Mg Tab.Chew) 750 mg PO Q4H PRN PRN Reason: Heartburn Last Admin: 02/19/25 20:47 Dose: 750 mg Documented By: OMAYRA Docusate Sodium (Docusate Sodium 100 Mg Capsule) 100 mg PO BID PRN PRN Reason: Constipation Enoxaparin Sodium (Enoxaparin Sodium 40 Mg/0.4 Ml Syringe) 40 mg SUBCUT Q24H [facility] Last Admin: 02/20/25 08:31 Dose: 40 mg Documented By: IZA Lactated Ringer's (Lr) 1,000 mls @ 100 mls/hr IVCONT .Q10H [facility] Last Infusion: 02/20/25 14:15 Dose: 100 mls/hr Documented By: IZA Piperacillin Sod/Tazobactam (Sod 3.375 gm/ Sodium Chloride) 50 mls @ 100 mls/hr IV Q6H [facility] Last Infusion: 02/20/25 14:10 Dose: Infused Documented By: IZA Magnesium Hydroxide (Milk Of Magnesia 30 Ml Oral.Susp) 30 ml PO DAILY PRN PRN Reason: Constipation Melatonin (Melatonin 3 Mg Tablet) 6 mg PO BEDTIME PRN PRN Reason: Insomnia Morphine Sulfate (Morphine Sulfate 2 Mg/Ml Cartridge) 2 mg IVPUSH Q4H PRN; Protocol PRN Reason: Pain, Severe (Pain Scale 7-10) Oxycodone HCl (Oxycodone Hcl Immed Release 5 Mg Tablet) 5 mg PO Q6H PRN PRN Reason: Pain, Moderate(Pain Scale 4-6) Last Admin: 02/19/25 18:16 Dose: 5 mg Documented By: JULIANN Polyethylene Glycol (Polyethylene Glycol 3350 17 Gm Powd.Pack) 17 gm PO DAILY PRN PRN Reason: Constipation Simethicone (Simethicone 80 Mg Tab.Chew) 160 mg PO BID PRN PRN Reason: Gas Last Admin: 02/19/25 18:16 Dose: 160 mg Documented By: JULIANN Sodium Chloride (0.9 % Sodium Chloride Flush 3 Ml Syringe) 3 ml IVFLUSH QSHIFT [facility] Last Admin: 02/20/25 08:28 Dose: 3 ml Documented By: IZA Labs 02/20/25 05:41 02/20/25 05:41 Labs: Laboratory Results - last 24 hr 02/20/25 05:41 MCV 95.5 MCH 31.0 MCHC 32.4 RDW 12.1 Plt Count 162 MPV 12.6 H Absolute Nucleated RBC 0.000 Nucleated RBC % (auto) 0.0 Anion Gap 11 L Estim Creat Clear Calc 77.0 Estimated GFR > 60 Random Glucose 84 Calcium 8.6 D Microbiology Microbiology Results: Microbiology 02/19/25 Unknown Urine Culture - Final Urine clean catch - Clean Catch Midstream 02/19/25 07:59 Blood Culture - Preliminary Blood - Venous No growth after 24 hours. 02/19/25 07:46 Blood Culture - Preliminary Blood - Venous No growth after 24 hours. Assessment and Plan (1) Diverticulitis: Status: Acute Plan 54 yo F with prior diverticultis, IBS, GERD, chronic idiopathic constipation, obesity and ? recently diagnosed DM started in tirzepatide about 2 weeks prior to hospitalization. She presents with abdominal pain. Work up in the ED consistent with acute sigmoid diverticulitis + possible early abscess. 1. Acute sigmoid diverticulitis with possible small early abscess IVF, IV abx, IV analgseics, IV anti-emetics trial of diet Gen Surg consult-patient improving -continue current management with IV antibiotics and monitor closely. Dysuria/abnormal Ua: ua has pyuria , no bacteruria urine culture -negative . 2. ? DM pt intially stated tirzepatide for weight loss but later confirmed she has also been diagnosed with DM recently A1C : 5.5 not on meal time insulin, check POC as needed and/or if HBA1C significantly elevated 3. Obesity outpt f/u weight loss encouraged 4. GERD/IBS continue baseline meds once med rec completed Full Code DVT pptx, Lovenox ongoing need :acute sigmoid diverticulitis with possible small early abscess:need IVF, IV abx, IV analgseics, IV anti-emetics, trial of diet Quality Stroke Does the patient have a stroke diagnosis?: No VTE Prior VTE?: No VTE Risk Level:: Medical - moderate - high VTE Device Contraindication: N/A - Device Ordered VTE Drug Contraindication: N/A - Med Ordered
[2025-02-20] MEDS: oxyCODONE HCl Immed Release 5 MG TABLET PO ×2 (15:39→21:44)
[2025-02-20 15:46] VITALS: BP 105/65; PULSE 73; RESP 16; TEMP 37.4; O2SAT 97
[2025-02-20 19:50] VITALS: BP 104/60; PULSE 86; RESP 18; TEMP 36.2
[2025-02-20] MEDS: Phenazopyridine HCL 200 MG TABLET PO (21:41)
[2025-02-21] MEDS: Lactated Ringers 1,000 ML 100 ML IVCONT (01:00)
[2025-02-21] MEDS: Piperacillin Sodium/Tazobactam 3.375 GM in 0.9 % Sodium Chloride 50 ML IV ×4 (01:01→19:31)
[2025-02-21] MEDS: 0.9 % Sodium Chloride Flush 3 ML SYRINGE IVFLUSH ×3 (01:02→19:32)
[2025-02-21 03:03] VITALS: BP 82/64; PULSE 63; RESP 14; TEMP 37.6; O2SAT 95
[2025-02-21 03:31] VITALS: BP 95/56; PULSE 63; RESP 16
[2025-02-21 07:46] VITALS: BP 100/57; PULSE 65; RESP 16; TEMP 36.6; O2SAT 96
[2025-02-21] MEDS: Enoxaparin Sodium 40 MG/0.4 ML SYRINGE SUBCUT (07:46)
[2025-02-21] MEDS: Simethicone 80 MG TAB.CHEW 160 MG PO ×2 (07:55→20:12)
[2025-02-21] MEDS: oxyCODONE HCl Immed Release 5 MG TABLET PO (07:55)
--- NOTE | 2025-02-21 09:05 | PC.NURSE ---
Pc/o dizzines ,BP 109/57 pulse 69 ,able to ambulate to BR with assistance,did well,Dr. Boone made aware
[2025-02-21 09:07] VITALS: BP 109/57; PULSE 69
[2025-02-21] MEDS: Phenazopyridine HCL 100 MG TABLET PO (10:35)
--- NOTE | 2025-02-21 12:44 | PC.NURSE ---
patient voided 600 ml of pyridium color urine,bladder scanned by TAPAN Weston for 159 ml
--- NOTE | 2025-02-21 13:06 | P.PNGS_ITS ---
Subjective Subjective Date of Service: 02/21/25 Interval history: feeling good, less pain Physical Exam 2 Vital Signs: Vital Signs: Last Vital Signs Temp 97.9 F 02/21/25 07:46 Pulse 69 02/21/25 09:07 Resp 16 02/21/25 07:46 BP 109/57 L 02/21/25 09:07 Pulse Ox 96 02/21/25 07:46 O2 Del Method Room Air 02/21/25 07:46 O2 Flow Rate 96 02/20/25 19:50 BMI result Body Mass Index 39.3 GI: Other: abdomen a little distended but soft nontender Objective Data Active Medications Acetaminophen (Acetaminophen 325 Mg Tablet) 650 mg PO Q6H PRN PRN Reason: Pain, Mild 1-3,fever,headache Calcium Carbonate (Calcium Carbonate 750 Mg Tab.Chew) 750 mg PO Q4H PRN PRN Reason: Heartburn Last Admin: 02/19/25 20:47 Dose: 750 mg Documented By: OMAYRA Docusate Sodium (Docusate Sodium 100 Mg Capsule) 100 mg PO BID PRN PRN Reason: Constipation Enoxaparin Sodium (Enoxaparin Sodium 40 Mg/0.4 Ml Syringe) 40 mg SUBCUT Q24H [facility] Last Admin: 02/21/25 07:46 Dose: 40 mg Documented By: SHELBY Piperacillin Sod/Tazobactam (Sod 3.375 gm/ Sodium Chloride) 50 mls @ 100 mls/hr IV Q6H [facility] Last Infusion: 02/21/25 07:00 Dose: Infused Documented By: AVA Magnesium Hydroxide (Milk Of Magnesia 30 Ml Oral.Susp) 30 ml PO DAILY PRN PRN Reason: Constipation Melatonin (Melatonin 3 Mg Tablet) 6 mg PO BEDTIME PRN PRN Reason: Insomnia Phenazopyridine HCl (Phenazopyridine Hcl 100 Mg Tablet) 100 mg PO BIDWM JANE Stop: 02/22/25 17:01 Last Admin: 02/21/25 10:35 Dose: 100 mg Documented By: SHELBY Polyethylene Glycol (Polyethylene Glycol 3350 17 Gm Powd.Pack) 17 gm PO DAILY PRN PRN Reason: Constipation Simethicone (Simethicone 80 Mg Tab.Chew) 160 mg PO BID PRN PRN Reason: Gas Last Admin: 02/21/25 07:55 Dose: 160 mg Documented By: SHELBY Sodium Chloride (0.9 % Sodium Chloride Flush 3 Ml Syringe) 3 ml IVFLUSH QSHIFT [facility] Last Admin: 02/21/25 07:47 Dose: Not Given Documented By: SHELBY Non-Admin Reason: IV Running Labs 02/20/25 05:41 02/20/25 05:41 Microbiology Microbiology Results: Microbiology 02/19/25 07:59 Blood Culture - Preliminary Blood - Venous No growth after 48 hours. 02/19/25 07:46 Blood Culture - Preliminary Blood - Venous No growth after 48 hours. 02/19/25 Unknown Urine Culture - Final Urine clean catch - Clean Catch Midstream Procedures Date of Service Date of Service: 02/21/25 Progress Note: A&P Assessment and plan (1) Diverticulitis: Status: Acute Assessment and Plan: doing well - advancing diet to low residue/bland diet and should be good to dc home by tomorrow with po antibiotics. no need for any surgical intervention now. pt had flex sig in 2022 with some sig narrowing identified due to diverticulosis=- bx are benign tissue. Pt may need to have elective resection of sig if cont flare ups and narrowing of sig becomes an issue. Time Spent With Patient Time: Total time managing care of this patient today ____ minutes. Quality Stroke Does the patient have a stroke diagnosis?: No VTE Prior VTE?: No VTE Risk Level:: Medical - moderate - high VTE Device Contraindication: N/A - Device Ordered VTE Drug Contraindication: N/A - Med Ordered
[2025-02-21 15:16] VITALS: BP 144/68; PULSE 82; RESP 18; TEMP 36.7; O2SAT 95
--- NOTE | 2025-02-21 15:28 | HO.PM.IMPN ---
Subjective Subjective Date of Service: 02/21/25 Interval History: Acute diverticulitis Review of Systems abd pain improved has some suprapubic pain has some bp flacuations and nausea after iv pain meds Physical Exam Vital Signs: Vital Signs: Last Vital Signs Temp 98.1 F 02/21/25 15:16 Pulse 82 02/21/25 15:16 Resp 18 02/21/25 15:16 BP 144/68 H 02/21/25 15:16 Pulse Ox 95 02/21/25 15:16 O2 Del Method Room Air 02/21/25 15:16 O2 Flow Rate 96 02/20/25 19:50 BMI result Body Mass Index 39.3 Respiratory - air entry fair , no rales or wheezing Gastrointestinal - abd pain resolved, soft - No CVA tenderness, mild suprapubic discomfort. Extremities - no calf tenderness bilaterally, no swelling Musculoskeletal - Normal inspection, normal ROM Skin - Warm/Dry Neurological - Alert & oriented x3, No focal deficit Psychological - Appropriate affect Objective Data Active Medications Acetaminophen (Acetaminophen 325 Mg Tablet) 650 mg PO Q6H PRN PRN Reason: Pain, Mild 1-3,fever,headache Calcium Carbonate (Calcium Carbonate 750 Mg Tab.Chew) 750 mg PO Q4H PRN PRN Reason: Heartburn Last Admin: 02/19/25 20:47 Dose: 750 mg Documented By: OMAYRA Docusate Sodium (Docusate Sodium 100 Mg Capsule) 100 mg PO BID PRN PRN Reason: Constipation Enoxaparin Sodium (Enoxaparin Sodium 40 Mg/0.4 Ml Syringe) 40 mg SUBCUT Q24H [facility] Last Admin: 02/21/25 07:46 Dose: 40 mg Documented By: SHELBY Piperacillin Sod/Tazobactam (Sod 3.375 gm/ Sodium Chloride) 50 mls @ 100 mls/hr IV Q6H [facility] Last Admin: 02/21/25 15:16 Dose: 100 mls/hr Documented By: SHELBY Magnesium Hydroxide (Milk Of Magnesia 30 Ml Oral.Susp) 30 ml PO DAILY PRN PRN Reason: Constipation Melatonin (Melatonin 3 Mg Tablet) 6 mg PO BEDTIME PRN PRN Reason: Insomnia Phenazopyridine HCl (Phenazopyridine Hcl 100 Mg Tablet) 100 mg PO BIDWM [facility] Stop: 02/22/25 17:01 Last Admin: 02/21/25 10:35 Dose: 100 mg Documented By: SHELBY Polyethylene Glycol (Polyethylene Glycol 3350 17 Gm Powd.Pack) 17 gm PO DAILY PRN PRN Reason: Constipation Simethicone (Simethicone 80 Mg Tab.Chew) 160 mg PO BID PRN PRN Reason: Gas Last Admin: 02/21/25 07:55 Dose: 160 mg Documented By: SHELBY Sodium Chloride (0.9 % Sodium Chloride Flush 3 Ml Syringe) 3 ml IVFLUSH QSHIFT [facility] Last Admin: 02/21/25 15:18 Dose: 3 ml Documented By: SHELBY Labs 02/20/25 05:41 02/20/25 05:41 Microbiology Microbiology Results: Microbiology 02/19/25 07:59 Blood Culture - Preliminary Blood - Venous No growth after 48 hours. 02/19/25 07:46 Blood Culture - Preliminary Blood - Venous No growth after 48 hours. 02/19/25 Unknown Urine Culture - Final Urine clean catch - Clean Catch Midstream Assessment and Plan (1) Diverticulitis: Status: Acute Plan 54 yo F with prior diverticultis, IBS, GERD, chronic idiopathic constipation, obesity and ? recently diagnosed DM started in tirzepatide about 2 weeks prior to hospitalization. She presents with abdominal pain. Work up in the ED consistent with acute sigmoid diverticulitis + possible early abscess. Acute sigmoid diverticulitis with possible small early abscess IVF, IV abx, IV analgseics, IV anti-emetics trial of diet Gen Surg consult-patient improving -continue current management with IV antibiotics and monitor closely. Dysuria/abnormal Ua:? unrinary incontinence suprapubic discomfort improving ua has pyuria , no bacteruria urine culture -negative . 2. ? DM pt intially stated tirzepatide for weight loss but later confirmed she has also been diagnosed with DM recently A1C : 5.5 not on meal time insulin, check POC as needed and/or if HBA1C significantly elevated 3. Obesity outpt f/u weight loss encouraged 4. GERD/IBS continue baseline meds once med rec completed Full Code. DVT pptx, Lovenox ongoing need :acute sigmoid diverticulitis with possible small early abscess:need IVF, IV abx, IV analgseics, IV anti-emetics, trial of diet Quality Stroke Does the patient have a stroke diagnosis?: No VTE Prior VTE?: No VTE Risk Level:: Medical - moderate - high VTE Device Contraindication: N/A - Device Ordered VTE Drug Contraindication: N/A - Med Ordered
[2025-02-21] MEDS: oxyBUTYnin chloride ER 5 MG TAB.ER.24 PO (16:10)
[2025-02-21 19:37] VITALS: BP 102/61; PULSE 69; RESP 18; TEMP 36.4; O2SAT 94
[2025-02-22] MEDS: Piperacillin Sodium/Tazobactam 3.375 GM in 0.9 % Sodium Chloride 50 ML IV ×4 (01:11→18:48)
[2025-02-22 04:00] VITALS: BP 98/54; PULSE 65; RESP 18; TEMP 36.7; O2SAT 96
--- NOTE | 2025-02-22 05:39 | PC.NURSE ---
patient voided in the bathroom, bladder scanned for 26 ml.
[2025-02-22] MEDS: Simethicone 80 MG TAB.CHEW 160 MG PO ×3 (06:45→20:39)
[2025-02-22] MEDS: 0.9 % Sodium Chloride Flush 3 ML SYRINGE IVFLUSH ×2 (07:29→17:15)
[2025-02-22] MEDS: Enoxaparin Sodium 40 MG/0.4 ML SYRINGE SUBCUT (07:33)
[2025-02-22] MEDS: oxyBUTYnin chloride ER 5 MG TAB.ER.24 PO (07:34)
[2025-02-22] MEDS: Acetaminophen 325 MG TABLET 650 MG PO (07:45)
[2025-02-22 07:46] VITALS: BP 135/85; PULSE 75; RESP 18; TEMP 36.4; O2SAT 98
[2025-02-22] MEDS: polyethylene glycoL 3350 17 GM POWD.PACK PO (12:20)
[2025-02-22] MEDS: Magnesium Hydrox/Alum Hydrox 30 ML ORAL.SUSP 15 ML PO (12:21)
--- NOTE | 2025-02-22 14:54 | PM.PNGS ---
Subjective Subjective Date of Service: 02/22/25 Interval history: Earlier in the day patient was complaining of abdominal pain but now is feeling much better. Tolerating p.o. diet well. She has had multiple flare ups but is feeling much better she says now Physical Exam Vital Signs: Vital Signs: Last Vital Signs Temp 97.5 F 02/22/25 07:46 Pulse 75 02/22/25 07:46 Resp 18 02/22/25 07:46 BP 135/85 02/22/25 07:46 Pulse Ox 98 02/22/25 07:46 O2 Del Method Room Air 02/22/25 07:46 O2 Flow Rate 96 02/20/25 19:50 BMI result Body Mass Index 39.3 Const: General: cooperative, healthy appearing, comfortable and no acute distress GI: Other: Abdomen is soft nondistended nontender Objective Data Active Medications Acetaminophen (Acetaminophen 325 Mg Tablet) 650 mg PO Q6H PRN PRN Reason: Pain, Mild 1-3,fever,headache Last Admin: 02/22/25 07:45 Dose: 650 mg Documented By: SHELBY Al Hydroxide/Mg Hydroxide (Magnesium Hydrox/Alum Hydrox 30 Ml Oral.Susp) 15 ml PO Q6H PRN PRN Reason: Gas Last Admin: 02/22/25 12:21 Dose: 15 ml Documented By: SHELBY Calcium Carbonate (Calcium Carbonate 750 Mg Tab.Chew) 750 mg PO Q4H PRN PRN Reason: Heartburn Last Admin: 02/19/25 20:47 Dose: 750 mg Documented By: OMAYRA Docusate Sodium (Docusate Sodium 100 Mg Capsule) 100 mg PO BID [facility] Enoxaparin Sodium (Enoxaparin Sodium 40 Mg/0.4 Ml Syringe) 40 mg SUBCUT Q24H [facility] Last Admin: 02/22/25 07:33 Dose: 40 mg Documented By: SHELBY Piperacillin Sod/Tazobactam (Sod 3.375 gm/ Sodium Chloride) 50 mls @ 100 mls/hr IV Q6H [facility] Last Infusion: 02/22/25 13:16 Dose: Infused Documented By: SHELBY Magnesium Hydroxide (Milk Of Magnesia 30 Ml Oral.Susp) 30 ml PO DAILY PRN PRN Reason: Constipation Melatonin (Melatonin 3 Mg Tablet) 6 mg PO BEDTIME PRN PRN Reason: Insomnia Oxybutynin Chloride (Oxybutynin Chloride Er 5 Mg Tab.Er.24) 5 mg PO DAILY [facility] Last Admin: 02/22/25 07:34 Dose: 5 mg Documented By: SHELBY Oxycodone HCl (Oxycodone Hcl Immed Release 5 Mg Tablet) 5 mg PO Q6H PRN PRN Reason: Pain, Severe (Pain Scale 7-10) Phenazopyridine HCl (Phenazopyridine Hcl 100 Mg Tablet) 100 mg PO BIDWM [facility] Stop: 02/22/25 17:01 Last Admin: 02/22/25 14:03 Dose: Not Given Documented By: SHELBY Non-Admin Reason: to hold per Dr. Boone Polyethylene Glycol (Polyethylene Glycol 3350 17 Gm Powd.Pack) 17 gm PO DAILY PRN PRN Reason: Constipation Last Admin: 02/22/25 12:20 Dose: 17 gm Documented By: SHELBY Simethicone (Simethicone 80 Mg Tab.Chew) 160 mg PO TID PRN PRN Reason: Gas Last Admin: 02/22/25 12:22 Dose: 160 mg Documented By: SHELBY Sodium Chloride (0.9 % Sodium Chloride Flush 3 Ml Syringe) 3 ml IVFLUSH [facility] Last Admin: 02/22/25 07:29 Dose: 3 ml Documented By: SHELBY Labs 02/20/25 05:41 02/20/25 05:41 Procedures Date of Service Date of Service: 02/22/25 Progress Note: A&P Assessment and plan (1) Diverticulitis: Status: Acute Assessment and Plan: 54-year-old female with diverticulitis much improved. Patient has had multiple episodes of diverticulitis and I think that she should plan to follow up for elective resection as an outpatient. She should be seen by the Surgical Department as an outpatient and determine whether she may need a colonoscopy before planning an elective resection. Extensive discussion was had with the patient about this and she is in agreement. Plan to continue advancing diet and eventual conversion to p.o. antibiotics once discharged maybe tomorrow Time Spent With Patient Time: Total time managing care of this patient today ____ minutes. Quality Stroke Does the patient have a stroke diagnosis?: No VTE Prior VTE?: No VTE Risk Level:: Medical - moderate - high VTE Device Contraindication: N/A - Device Ordered VTE Drug Contraindication: N/A - Med Ordered
[2025-02-22 15:33] VITALS: BP 141/64; PULSE 85; RESP 18; TEMP 36.2; O2SAT 96
--- NOTE | 2025-02-22 16:26 | P.PNIM_ITS ---
Subjective Subjective Date of Service: 02/22/25 Interval History: acute diverticulitis Review of Systems Patient is still having on and off significant abdominal pain. Denies any urinary complaints or fever or chills. Review of Systems: Yes all other systems are reviewed and are negative Physical Exam 2 Vital Signs: Vital Signs: Last Vital Signs Te BMI result Body Mass Index 39.3 Respiratory - air entry fair , no rales or wheezing Gastrointestinal - abd pain llq, soft - No CVA tenderness, Extremities - no calf tenderness bilaterally, no swelling Musculoskeletal - Normal inspection, normal ROM Skin - Warm/Dry Neurological - Alert & oriented x3, No focal deficit Psychological - Appropriate affect Objective Data Active Medications Acetaminophen (Acetaminophen 325 Mg Tablet) 650 mg PO Q6H PRN PRN Reason: Pain, Mild 1-3,fever,headache Last Admin: 02/22/25 07:45 Dose: 650 mg Documented By: SHELBY Al Hydroxide/Mg Hydroxide (Magnesium Hydrox/Alum Hydrox 30 Ml Oral.Susp) 15 ml PO Q6H PRN PRN Reason: Gas Last Admin: 02/22/25 12:21 Dose: 15 ml Documented By: SHELBY Calcium Carbonate (Calcium Carbonate 750 Mg Tab.Chew) 750 mg PO Q4H PRN PRN Reason: Heartburn Last Admin: 02/19/25 20:47 Dose: 750 mg Documented By: OMAYRA Docusate Sodium (Docusate Sodium 100 Mg Capsule) 100 mg PO BID [facility] Enoxaparin Sodium (Enoxaparin Sodium 40 Mg/0.4 Ml Syringe) 40 mg SUBCUT Q24H [facility] Last Admin: 02/22/25 07:33 Dose: 40 mg Documented By: SHELBY Piperacillin Sod/Tazobactam (Sod 3.375 gm/ Sodium Chloride) 50 mls @ 100 mls/hr IV Q6H [facility] Last Infusion: 02/22/25 13:16 Dose: Infused Documented By: SHELBY Magnesium Hydroxide (Milk Of Magnesia 30 Ml Oral.Susp) 30 ml PO DAILY PRN PRN Reason: Constipation Melatonin (Melatonin 3 Mg Tablet) 6 mg PO BEDTIME PRN PRN Reason: Insomnia Oxybutynin Chloride (Oxybutynin Chloride Er 5 Mg Tab.Er.24) 5 mg PO DAILY [facility] Last Admin: 02/22/25 07:34 Dose: 5 mg Documented By: SHELBY Oxycodone HCl (Oxycodone Hcl Immed Release 5 Mg Tablet) 5 mg PO Q6H PRN PRN Reason: Pain, Severe (Pain Scale 7-10) Phenazopyridine HCl (Phenazopyridine Hcl 100 Mg Tablet) 100 mg PO BIDWM [facility] Stop: 02/22/25 17:01 Last Admin: 02/22/25 14:03 Dose: Not Given Documented By: SHELBY Non-Admin Reason: to hold per Dr. Boone Polyethylene Glycol (Polyethylene Glycol 3350 17 Gm Powd.Pack) 17 gm PO DAILY PRN PRN Reason: Constipation Last Admin: 02/22/25 12:20 Dose: 17 gm Documented By: SHELBY Simethicone (Simethicone 80 Mg Tab.Chew) 160 mg PO TID PRN PRN Reason: Gas Last Admin: 02/22/25 12:22 Dose: 160 mg Documented By: SHELBY Sodium Chloride (0.9 % Sodium Chloride Flush 3 Ml [facility]ringe) [facility] Last Admin: 02/22/25 07:29 Dose: 3 ml Documented By: SHELBY Labs 02/20/25 05:41 02/20/25 05:41 Assessment and Plan (1) Diverticulitis: Status: Acute Plan 54 yo F with prior diverticultis, IBS, GERD, chronic idiopathic constipation, obesity and ? recently diagnosed DM started in tirzepatide about 2 weeks prior to hospitalization. She presents with abdominal pain. Work up in the ED consistent with acute sigmoid diverticulitis + possible early abscess. Acute sigmoid diverticulitis with possible small early abscess IVF, IV abx, IV analgseics, IV anti-emetics trial of diet Gen Surg consult-patient improving -continue current management with IV antibiotics and monitor closely. Dysuria/abnormal Ua:? unrinary incontinence suprapubic discomfort resolved ua has pyuria , no bacteruria urine culture <75349ode/ml. 2. ? DM pt intially stated tirzepatide for weight loss but later confirmed she has also been diagnosed with DM recently A1C : 5.5 not on meal time insulin, check POC as needed . 3. Obesity outpt f/u weight loss encouraged 4. GERD/IBS continue baseline meds once med rec completed Full Code. DVT pptx, Lovenox ongoing need :acute sigmoid diverticulitis with possible small early abscess:need IVF, IV abx, IV analgseics, IV anti-emetics, trial of diet Quality Stroke Does the patient have a stroke diagnosis?: No VTE Prior VTE?: No VTE Risk Level:: Medical - moderate - high VTE Device Contraindication: N/A - Device Ordered VTE Drug Contraindication: N/A - Med Ordered
--- NOTE | 2025-02-22 17:08 | PC.NURSE ---
patient voided ,bladder scanned by TAPAN Reddy for 55 ml
[2025-02-22 19:44] VITALS: BP 101/60; PULSE 62; RESP 18; TEMP 36.2; O2SAT 95
[2025-02-22] MEDS: Docusate Sodium 100 MG CAPSULE PO (20:39)
[2025-02-23] MEDS: 0.9 % Sodium Chloride Flush 3 ML SYRINGE IVFLUSH (00:58)
[2025-02-23] MEDS: Piperacillin Sodium/Tazobactam 3.375 GM in 0.9 % Sodium Chloride 50 ML IV ×2 (00:58→06:29)
[2025-02-23] MEDS: oxyCODONE HCl Immed Release 5 MG TABLET PO ×2 (01:06→07:46)
[2025-02-23 04:00] VITALS: BP 99/62; PULSE 58; RESP 18; TEMP 36.2; O2SAT 98
[2025-02-23] MEDS: Milk of Magnesia 30 ML ORAL.SUSP PO (06:28)
[2025-02-23] MEDS: Simethicone 80 MG TAB.CHEW 160 MG PO (06:29)
[2025-02-23] MEDS: polyethylene glycoL 3350 17 GM POWD.PACK PO (06:29)
[2025-02-23 06:55] VITALS: BP 118/79; PULSE 58; RESP 16; TEMP 36.6; O2SAT 99
[2025-02-23] MEDS: Docusate Sodium 100 MG CAPSULE PO (07:46)
[2025-02-23] MEDS: oxyBUTYnin chloride ER 5 MG TAB.ER.24 PO (07:46)
[2025-02-23] MEDS: Enoxaparin Sodium 40 MG/0.4 ML SYRINGE SUBCUT (07:46)
[2025-02-23] MEDS: Acetaminophen 325 MG TABLET 650 MG PO (07:49)
--- NOTE | 2025-02-23 09:01 | PM.PNGS ---
Subjective Subjective Date of Service: 02/23/25 Patient reports: no new complaints Interval history: Patient is doing well today. Endorses some mild abdominal pain, but is much improved. Patient is passing small bowel movements. She is tolerating diet. Denies fever, chills, nausea, vomiting. Physical Exam Vital Signs: Vital Signs: Last Vital Signs Temp 97.9 F 02/23/25 06:55 Pulse 58 02/23/25 06:55 Resp 16 02/23/25 06:55 BP 118/79 02/23/25 06:55 Pulse Ox 99 02/23/25 06:55 O2 Del Method Room Air 02/23/25 06:55 O2 Flow Rate 96 02/20/25 19:50 BMI result Body Mass Index 39.3 Const: General: comfortable; No no acute distress Orientation/consciousness: patient oriented x3 Resp: Effort & Inspection: normal respiratory effort and able to speak in complete sentences GI: Inspection: No distended Palpation (GI): Soft to palpation, Tenderness to palpation present (GI) (Mild ) in the epigastrum and in the LLQ, no guarding and not rigid Neuro: General: patient oriented x3 Objective Data Active Medications Acetaminophen (Acetaminophen 325 Mg Tablet) 650 mg PO Q6H PRN PRN Reason: Pain, Mild 1-3,fever,headache Last Admin: 02/23/25 07:49 Dose: 650 mg Documented By: MATT Al Hydroxide/Mg Hydroxide (Magnesium Hydrox/Alum Hydrox 30 Ml Oral.Susp) 15 ml PO Q6H PRN PRN Reason: Gas Last Admin: 02/22/25 12:21 Dose: 15 ml Documented By: SHELBY Calcium Carbonate (Calcium Carbonate 750 Mg Tab.Chew) 750 mg PO Q4H PRN PRN Reason: Heartburn Last Admin: 02/19/25 20:47 Dose: 750 mg Documented By: OMAYRA Docusate Sodium (Docusate Sodium 100 Mg Capsule) 100 mg PO BID [facility] Last Admin: 02/23/25 07:46 Dose: 100 mg Documented By: MATT Enoxaparin Sodium (Enoxaparin Sodium 40 Mg/0.4 Ml Syringe) 40 mg SUBCUT Q24H [facility] Last Admin: 02/23/25 07:46 Dose: 40 mg Documented By: MATT Piperacillin Sod/Tazobactam (Sod 3.375 gm/ Sodium Chloride) 50 mls @ 100 mls/hr IV Q6H [facility] Last Infusion: 02/23/25 07:07 Dose: Infused Documented By: SETH Magnesium Hydroxide (Milk Of Magnesia 30 Ml Oral.Susp) 30 ml PO DAILY PRN PRN Reason: Constipation Last Admin: 02/23/25 06:28 Dose: 30 ml Documented By: SAMSON Melatonin (Melatonin 3 Mg Tablet) 6 mg PO BEDTIME PRN PRN Reason: Insomnia Oxybutynin Chloride (Oxybutynin Chloride Er 5 Mg Tab.Er.24) 5 mg PO DAILY [facility] Last Admin: 02/23/25 07:46 Dose: 5 mg Documented By: MATT Oxycodone HCl (Oxycodone Hcl Immed Release 5 Mg Tablet) 5 mg PO Q6H PRN PRN Reason: Pain, Severe (Pain Scale 7-10) Last Admin: 02/23/25 07:46 Dose: 5 mg Documented By: MATT Polyethylene Glycol (Polyethylene Glycol 3350 17 Gm Powd.Pack) 17 gm PO DAILY PRN PRN Reason: Constipation Last Admin: 02/23/25 06:29 Dose: 17 gm Documented By: SAMSON Simethicone (Simethicone 80 Mg Tab.Chew) 160 mg PO TID PRN PRN Reason: Gas Last Admin: 02/23/25 06:29 Dose: 160 mg Documented By: SAMSON Sodium Chloride (0.9 % Sodium Chloride Flush 3 Ml Syringe) 3 ml IVFLUSH QSHIFT [facility] Last Admin: 02/23/25 07:46 Dose: Not Given Documented By: MATT Non-Admin Reason: Previously Administered Labs 02/20/25 05:41 02/20/25 05:41 Procedures Date of Service Date of Service: 02/23/25 Progress Note: A&P Assessment and plan (1) Diverticulitis: Status: Acute Plan 54-year-old female admitted for acute diverticulitis. Patient is doing well, improving towards baseline. Continues to experience some mild abdominal pain to palpation. Patient passing bowel movements, tolerating clear diet. Abdomen remains soft and benign aside from some mild tenderness in the epigastric and left lower quadrant. Patient remains on IV antibiotics. Patient feels she is ready to go home. We discussed her goals to proceed with surgery after the acute phase due to recurrent diverticulitis, patient can follow-up as an outpatient for further management after discharge. Recommend advancing diet as tolerated Continue antibiotics, recommend continuing short course for home antibiotics at the time of discharge. Pain management as needed Recommend patient follow up with General surgery as an outpatient. Time Spent With Patient Time: Total time managing care of this patient today ____ minutes. Quality Stroke Does the patient have a stroke diagnosis?: No VTE Prior VTE?: No VTE Risk Level:: Medical - moderate - high VTE Device Contraindication: N/A - Device Ordered VTE Drug Contraindication: N/A - Med Ordered
[2025-02-23] MEDS: Amoxicillin/Potassium Clav 875 MG TABLET PO (12:51)
--- NOTE | 2025-02-23 13:07 | PM.DS ---
DS: Providers Provider Date of Service: 02/23/25 Date of admission: 02/19/25 07:14 Date of discharge: 02/23/25 Primary care physician: Christelle Jorge MD Consults: 02/19/25 08:03 Consult to General Surgery Routine Consulting Provider: [facility] General Surgeons Reason for consultation: diverticulitis, ? abscess Attending physician on discharge: Ramon Boone Discharging clinician: Ramon Boone DS: Diagnosis Discharge Diagnosis (1) Diverticulitis: Status: Acute DS: Summary Hospital Course Hospital Course: HPI:54-year-old female who presents to [facility] ED with complaints of abdominal pain. The history is obtained with the help of a Divehi-speaking american sign language interpreter. Patient reports that she had generalized abdominal symptoms starting earlier this week but on the evening prior to arrival she had worsening of upper abdominal/epigastric pain which was pressure-like in nature and constant. She reports associated nausea without vomiting. She endorses loose stools. She denies any bleeding. She reports that her abdominal pain is now also more prevalent in the left lower quadrant. She reports that her current symptoms are different than her prior episodes of diverticulitis. She reports that she has started teres appetite for weight loss (later confirms she has also been diagnosed with diabetes but is not any specific medication for this alone). In the emergency room the patient underwent workup including CT scan of the abdomen and pelvis which showed findings suggestive of sigmoid diverticulitis with abnormal thickening of the sigmoid colon and mild surrounding stranding. There was also a fluid-filled density abutting the sigmoid which may reflect small early abscess. The patient was treated with intravenous fluids IV analgesics IV antiemetics and IV antibiotics. She continues to have intolerance to oral intake and pain hence will be admitted for further workup and treatment. Hospital course: Acute sigmoid diverticulitis with possible small early abscess improved with IVF, IV abx, IV analgseics, IV anti-emetics trial of diet Gen Surg consult-patient improved significantly ,abdominal pain,currently asymptomatic ,improved ,tolerating diet -plan for consider colonoscopy outpatient and surgery follow up consideration of elective surgery. Dysuria/abnormal Ua:? unrinary incontinence suprapubic discomfort resolved urine culture <61508ual/ml. currently asymptomatic. no antibiotics need at present. 2. ? DM:pt intially stated tirzepatide for weight loss but later confirmed she has also been diagnosed with DM recently A1C : 5.5 further management outpatient with pcp. 3. Obesity outpt f/u weight loss encouraged plan: Complete Augmentin 875 mg p.o. b.i.d. for 7 days,consider colonoscopy before planning an elective resection. Unclear why patient is on tirzepatide, hemoglobin A1c is 5.5-please check with PCP for further use. As per patient she was prescribed oxybutynin recently (patient said she has prescription at home)-follow up with pcp. if any new symptoms -patient advised to go to nearest ed for further eval. above management d/q patient and her daughters at bedside with the help of per diem interpreter ,they understand and in agreement with above plan.time spent 40 min,all questions answered. staff present during conversation. Time Attestation Total time managing care of this patient today: 40 mintues. Discharge Coordination Time (in mins): 40 min Quality: Safe Use of Opioids Does Pt have an Active Cancer Diagnosis on the Problem List?: No Quality: Stroke Does the patient have a stroke diagnosis?: No Physical Exam Vital Signs: Vital Signs: Last Vital Signs Temp 97.9 F 02/23/25 06:55 Pulse 58 02/23/25 06:55 Resp 16 02/23/25 06:55 BP 118/79 02/23/25 06:55 Pulse Ox 99 02/23/25 06:55 O2 Del Method Room Air 02/23/25 06:55 O2 Flow Rate 96 02/20/25 19:50 BMI result Body Mass Index 39.3 Respiratory - air entry fair , no rales or wheezing Gastrointestinal - abd pain llq, soft - No CVA tenderness, Extremities - no calf tenderness bilaterally, no swelling Musculoskeletal - Normal inspection, normal ROM Skin - Warm/Dry Neurological - Alert & oriented x3, No focal deficit Psychological - Appropriate affect DS: Data Data Completed and Pending Labs on day of discharge: Preliminary micro results at discharge 02/19/25 07:59 Blood Culture - Preliminary Blood - Venous No growth after 48 hours. 02/19/25 07:46 Blood Culture - Preliminary Blood - Venous No growth after 48 hours. Additional Comments Additional comments: Ct abd: Findings suggest sigmoid diverticulitis with abnormal thickening of the sigmoid colon and mild surrounding stranding. GI follow-up recommended to ensure resolution of the sigmoid thickening. Nonspecific fluid density structure abutting the sigmoid may reflect a fluid-filled diverticulum or small early abscess. Close continued follow-up recommended. Discharge Plan Discharge Anticipated Discharge Date/Time: 02/23/25 12:35 Patient Disposition: Home, Self-Care Discharge Diagnosis: acute diverticulitis possible early abcess Referrals: Christelle Rondon MD [Primary Care Provider] - 1 Week Mook Carney PA-C [Physician Cable Tender] - 1 Week Discharge Medications: New oxybutynin chloride 5 mg Tablet Extended Release 24hr 5 mg PO DAILY Qty: 1 0RF amoxicillin-pot clavulanate 875-125 mg Tablet 1 tab PO Q12H Qty: 14 0RF Continued simethicone 180 mg capsule 180 mg PO BID PRN (Reason: abdominal distention) Qty: 180 2RF Zepbound 2.5 mg/0.5 mL pen injector 2.5 mg subcut TU acetaminophen 325 mg Tablet 650 mg PO Q4H PRN (Reason: Pain) ibuprofen 200 mg Tablet 200 mg PO Q6H PRN (Reason: Pain) polyethylene glycol 3350 [Miralax] 17 gram powder in packet 17 g PO DAILY PRN (Reason: Constipation) prucalopride [Motegrity] 2 mg tablet 2 mg PO DAILY PRN (Reason: Constipation) docusate sodium [Stool Softener] 100 mg capsule 100 mg PO BID PRN (Reason: Constipation) loratadine [Claritin] 10 mg tablet 10 mg PO DAILY PRN (Reason: Allergy Symptoms) (DME) Pads For Women Pad See Rx Instructions .Route Qty: 90 0RF Rx Instructions: As directed three daily Discharge Orders: Discharge Order (Routine); Ordered 02/23/25 Ordered By: Ramon Boone Diet: Advance to usual diet Activity on Discharge: As tolerated Stand Alone Forms: Patient Portal Discharge page, Work/School Release Print Language: Divehi Care Plan Goals: As below. Health Concerns: Complete Augmentin 875 mg p.o. b.i.d. for 7 days,consider colonoscopy before planning an elective resection. Unclear why patient is on tirzepatide, hemoglobin A1c is 5.5-please check with PCP for further use. As per patient she was prescribed oxybutynin recently (patient said she has prescription at home)-follow up with pcp. Plan of Treatment: As above. Assessment: As above. Discharge Date/Time: 02/23/25 14:23
--- NOTE | 2025-02-23 13:14 | MHC.CM.PN ---
DP: PT HAS BEEN MEDICALLY CLEARED FOR DC HOME, NO SERVICES. PT HAS OWN RIDE HOME.
== END 2025-02-23 14:23 | disposition home or self-care (01) | DRG 244 ==
LOC: HO.ED 07:14 → HO.EDOVER 07:56 → HO.S3 12:39
PROVIDERS: Family Medicine; Admitting Provider Family Medicine; Emergency Provider Internal Medicine; PCP Internal Medicine; Visit Provider Internal Medicine
DX: K57.20 Diverticulitis of large intestine with perforation and abscess without bleeding (principal); E11.9 Type 2 diabetes mellitus without complications; N32.81 Overactive bladder; E66.9 Obesity, unspecified; Z68.39 Body mass index [BMI] 39.0-39.9, adult; Z71.3 Dietary counseling and surveillance; K58.9 Irritable bowel syndrome, unspecified; Z87.891 Personal history of nicotine dependence; Z79.899 Other long term (current) drug therapy
CPT/HCPCS: 36415; 74176; 80048; 80053; 81001; 83036; 83605; 83690; 83735; 84484; 85025; 85027; 87040; 87086; 99285; J1650; J2270; J2405; J2543; J7120

== ENCOUNTER → 2025-02-19 05:56 | Outpatient (BNV) | payer MEDICAID, SELFPAY | PROVIDERS: Emergency Provider Internal Medicine; Visit Provider Radiology Vascular & Interventional Radiology | DX: K57.92 Diverticulitis of intestine, part unspecified, without perforation or abscess without bleeding (principal) | CPT/HCPCS: 74176 ==

== ENCOUNTER → 2025-02-19 07:14 | Outpatient (BNV) | payer MEDICAID, SELFPAY | PROVIDERS: Admitting Provider Family Medicine; Emergency Provider Internal Medicine; Visit Provider Physician Assistant Surgical | DX: K57.92 Diverticulitis of intestine, part unspecified, without perforation or abscess without bleeding (principal) | CPT/HCPCS: 99222 ==

== ENCOUNTER → 2025-02-19 07:14 | Outpatient (BNV) | payer MEDICAID, SELFPAY | PROVIDERS: Admitting Provider Family Medicine; Emergency Provider Internal Medicine; Visit Provider Family Medicine | DX: K57.92 Diverticulitis of intestine, part unspecified, without perforation or abscess without bleeding (principal) | CPT/HCPCS: 99223; 99231; 99232 ==

== ENCOUNTER 2025-04-08 15:43 | Outpatient (AMB) | payer MEDICAID, SELFPAY ==
--- NOTE | 2025-04-08 15:50 | MHC.OFFVIS ---
Intake Visit Reasons: Botox f/u Intake Note: Patient presents today for botox follow up Urology Medications: none Blood Thinner:none Uke Operator Name: [email or web address] Information Interpreted: non-clinical & clinical Accompanied by: Self / Same As Patient Allergies No Known Allergies (NKA) Allergy (Verified 04/08/25 15:55) PFSH Medical History Hx of sigmoidoscopy Post-menopause Diverticulosis Diverticulitis Family history of coronary artery bypass graft Smoking Chronic idiopathic constipation Obesity (BMI 30-39.9) Cigarette smoker Hepatic steatosis Surgical History H/O colonoscopy Hx of tonsillectomy Family History Brother Cancer Father Diabetes Mother Diabetes HTN (hypertension) Heart problem Family/Other Diabetes Social History Household Members: Children Housing: House Are you a primary cardiac care unit nurse to a significant other at home: No Do you presently have visiting nurse or other home services: No Alcohol intake: never Patient Tobacco Use Status: Former Tobacco user Cigarette Packs Per Day: 0.5 Cigarettes Per Day: 10.0 Second Hand Smoke Exposure: No service: No Results AMB Urinalysis, Automated UA Leukoctes 0 Mara/uL Last Edit by Elda Corrales on 04/08/25 16:40 UA Nitrite Negative Last Edit by Elda Corrales on 04/08/25 16:40 UA Urobilinogen 3.5 mg/dL Last Edit by Elda Corrales on 04/08/25 16:40 UA Protein 1 mg/dL Last Edit by Elda Corrales on 04/08/25 16:40 UA pH 5.5 Last Edit by Elda Corrales on 04/08/25 16:40 UA Blood 80 Samuel/uL Last Edit by Elda Corrales on 04/08/25 16:40 UA Specific [place] 1.020 Last Edit by Edla Corrales on 04/08/25 16:40 UA Ketone Positive Last Edit by Elda Corrales on 04/08/25 16:40 UA Bilirubin 0 mg/dL Last Edit by Elda Corrales on 04/08/25 16:40 UA Glucose 0 mg/dL Last Edit by Elda Corrales on 04/08/25 16:40 Assessment & Plan Assessment & Plan Orders: Orders AMB Urinalysis Automated Today Z13.9 - Encounter for screening, unspecified Coding
--- OUTSIDE RECORDS SUMMARY | 2025-04-08 16:18 | XMS_ITS | Encounter Summary ---
Author Organization [employer] Address [address] [place] [address] 7 [place] [address] Care Team Providers Care Wildlife Photographer Name Role Phone Christelle Rondon MD Primary Care Provide r Reason for Visit * Reason Comments Med Refill Encounter Details Date Type Department Care Team ([facility] st Contact Info) Description 02/02/2025 Refill [facility] [address] [place], [place] [phone] Christelle Rondon MD [address] [place] [address] Class 3 severe obesity due to excess calories with serious comorbidity and body mass index (BMI) of 40.0 to 44.9 in adult; Other constipation Social History Tobacco Use Types [...] getting things needed for daily living? No 01/30/2025 Utilities Answer Date Recorded In the past 12 months, has t he electric, gas, oil or water company threatened to shut off services in your home? No 10/06/2024 Depression Answer Date Recorded Patient Health Questionnaire-2 Score 0 10/17/2024 Internet Access Answer Date Recorded Internet Access Q1 No 01/30/2025 Internet Access Q2 I do not want or need it 01/09 Comments Unknown Sex and Gender Information Value Date Recorded Sex Assigned at Female 07/10/2022 10:15 AM EDT Legal Sex Female 10:15 AM EDT Gender Identity Female 07/10/2022 10:15 AM EDT Sexual Orientation Straight 07/10/2022 10 :15 AM EDT documented as of this encounter Plan of Treatment Upcoming Encounters Date Type Department Care Team (Late st Contact Info) Description 06/09/2025 3:30 PM EDT Office Visit [facility] [address] [place] [phone] Christelle Rondon MD [address] [place] [address] documented as of this encounter Visit Diagnoses Diagnosis Class 3 severe obesity due to excess calories with serious comorbidity and body mass index (BMI) of 40.0 to 44.9 in adult Other constipation documented in this encounter Additional Health Concerns Assessment Noted Time PHQ-9 Depression Total Score: 0 04/05/20 23 3:44 PM EDT documented as of this encounter Care Teams Wildlife Photographer Relationship Specialty Start Date End Date Christelle Rondon MD [address] [place] [id number] PCP - General Family Medicine 10/11/18 documented as of this encounter
== END 2025-04-08 16:20 | disposition home or self-care (01) ==
LOC: HO.HUSH 15:43
PROVIDERS: PCP Internal Medicine; Visit Provider Urology
DX: Z13.9 Encounter for screening, unspecified (principal)

== ENCOUNTER → 2025-04-08 15:43 | Outpatient (BNVA) | payer MEDICAID, SELFPAY | PROVIDERS: PCP Internal Medicine; Visit Provider Urology | DX: Z13.9 Encounter for screening, unspecified (principal) | CPT/HCPCS: 81003; 99212 ==

== ENCOUNTER 2025-04-09 09:28 | Outpatient (AMB) | payer MEDICAID, SELFPAY ==
--- NOTE | 2025-04-09 09:30 | MHC.OFFVIS ---
Vital Signs 04/09/25 09:46 Height 5 ft 2 in Weight 218 lb BMI 39.9 BP 120/78 Blood Pressure Location Lt brachial Position Sitting Pulse 68 Intake Visit Reasons: Diverticulitis Intake Note: Patient seen in office for evaluation and treatment of Diverticulitis. Patient c/o: admits to constipation, does not have daily bm, has to push, takes meds with out relief, onset for many yrs, sees gastro ED/CT: 02/19/25 GI: 05/04/25 Licensed Dispensing Optician Required: Yes Licensed Dispensing Optician Language: Claim Processing Specialist Services: Licensed Dispensing Optician Present Licensed Dispensing Optician Name: Megan RANGEL Information Interpreted: non-clinical & clinical Medical Safety Director: Medical Safety Director Present Accompanied by: Self / Same As Patient Allergies No Known Allergies (NKA) Allergy (Verified 04/09/25 09:44) Medication List - Last Reconciled 04/09/25 by Nabor Hernandez MD acetaminophen 650 mg PO Q4H PRN docusate sodium (Stool Softener) 100 mg PO BID PRN ibuprofen 200 mg PO Q6H PRN incontinence pad, liner, disp (Pads For Women) As directed three daily loratadine (Claritin) 10 mg PO DAILY PRN polyethylene glycol 3350 (Miralax) 17 grams PO DAILY PRN prucalopride (Motegrity) 2 mg PO DAILY PRN simethicone 180 mg PO BID PRN HPI Comments Details: 54-year-old female patient returning following a recent admission for sigmoid diverticulitis. She reports continued constipation which does improve after taking the stool softeners. If she does not take the stool softener she has difficulty passing bowels. She previously underwent a flexible sigmoidoscopy with the findings of the some small polyps which were benign. Examination was limited to just about the level of the splenic flexure. She previously underwent colonoscopy by Dr. Ann on 09/16/2020. Pathology revealed hyperplastic mucosal polyps. She is interested in proceeding to sigmoid resection to prevent further infections with the sigmoid colon. She has had the pain so many times that she wishes to have the area of chronic infection removed. She has been followed by [facility] and gastroenterology as well. She has an appointment later this month for follow-up. [facility] Medical History Hx of sigmoidoscopy Post-menopause Diverticulosis Diverticulitis Family history of coronary artery bypass graft Smoking Chronic idiopathic constipation Obesity (BMI 30-39.9) Cigarette smoker Hepatic steatosis Surgical History H/O colonoscopy Hx of tonsillectomy Family History Brother Cancer Father Diabetes Mother Diabetes HTN (hypertension) Heart problem Family/Other Diabetes Social History Household Members: Children Housing: House Are you a primary care team assistant to a significant other at home: No Do you presently have visiting nurse or other home services: No Alcohol intake: never Patient Tobacco Use Status: Former Tobacco user Cigarette Packs Per Day: 0.5 Cigarettes Per Day: 10.0 Second Hand Smoke Exposure: No service: No Review of Systems Const All systems reviewed & are unremarkable except as noted in HPI and below Physical Exam Vital Signs: Last Vital Signs Temp 97.9 F 02/23/25 06:55 Pulse 58 02/23/25 06:55 Resp 16 02/23/25 06:55 BP 118/79 02/23/25 06:55 Pulse Ox 99 02/23/25 06:55 O2 Del Method Room Air 02/23/25 06:55 O2 Flow Rate 96 02/20/25 19:50 BMI result Body Mass Index 39.3 Const General: comfortable; No no acute distress Orientation/consciousness: patient oriented x3 Resp Effort & Inspection: normal respiratory effort and able to speak in complete sentences GI Inspection: No distended Palpation (GI): Soft to palpation, nontender, no guarding and not rigid Rectal Exam - Female: deferred Neuro General: patient oriented x3 Extrem General: Yes no clubbing, cyanosis or edema Assessment & Plan Assessment & Plan (1) Diverticulosis: Code(s): K57.90 - Diverticulosis of intestine, part unspecified, without perforation or abscess without bleeding Category: Medical Plan 54-year-old female patient with several episodes of abdominal pain in the left lower quadrant found to have sigmoid diverticulitis. CT abdomen and pelvis confirmed thickening of the sigmoid colon consistent with sigmoid diverticulitis. She previously underwent colonoscopy by Dr. Ann in 2020. We discussed hand assisted laparoscopic or possible open sigmoid resection including the risks, alternatives and benefits. She has expressed interest in proceeding with the surgery and gives her consent. Coding Level of Care Code Est Pt Level 4 (43718) Diagnoses Diverticulosis K57.90
[2025-04-09 09:46] VITALS: BP 120/78; PULSE 68; BMI 39.9
--- OUTSIDE RECORDS SUMMARY | 2025-04-09 09:48 | XMS_ITS | Encounter Summary ---
Author Organization [employer] Address [address] [place] [address] [address] [place] [address] Care Team Providers Care Binding End Stitcher Name Role Phone Christelle Rondon MD Primary Care Provide r Reason for Visit * Reason Comments Med Refill Encounter Details Date Type Department Care Team ([facility] st Contact Info) Description 02/02/2025 Refill [facility] [address] [place], [place] [phone] Christelle Rondon MD [address] [place] [address] Class 3 severe obesity due to excess [...] Description 06/09/2025 3:30 PM EDT Office Visit [facility] [address] [place] [phone] Christelle Rondon MD [address] [place] [address] documented as of this encounter Visit Diagnoses Diagnosis Class 3 severe obesity due to excess calories with serious comorbidity and body mass index (BMI) of 40.0 to 44.9 in adult Other constipation documented in this encounter Additional Health Concerns Assessment Noted Time PHQ-9 Depression Total Score: 0 04/05/20 23 3:44 PM EDT documented as of this encounter Care Teams Binding End Stitcher Relationship Specialty Start Date End Date Christelle Rondon MD [address] [place] [id number] PCP - General Family Medicine 10/11/18 documented as of this encounter
== END 2025-04-09 10:11 | disposition home or self-care (01) ==
LOC: HO.HGS 09:28
PROVIDERS: PCP Internal Medicine; Visit Provider Surgery
DX: K57.90 Diverticulosis of intestine, part unspecified, without perforation or abscess without bleeding (principal)
CPT/HCPCS: 99214

== ENCOUNTER → 2025-04-09 09:28 | Outpatient (BNVA) | payer MEDICAID, SELFPAY | PROVIDERS: PCP Internal Medicine; Visit Provider Surgery | DX: K57.30 Diverticulosis of large intestine without perforation or abscess without bleeding (principal) | CPT/HCPCS: 99212 ==

== ENCOUNTER 2025-05-04 16:09 | Outpatient (AMB) | payer MEDICAID, SELFPAY ==
--- NOTE | 2025-05-04 16:11 | MHC.OFFVIS ---
Vital Signs 05/04/25 16:17 Height 5 ft 2 in Weight 222 lb BMI 40.6 BP 110/70 Blood Pressure Location Rt brachial Position Sitting Pulse 92 Pulse Source Pulse Oximeter Pulse Oximetry (%) 95 Oxygen Delivery Method Room Air Intake Visit Reasons: f/u Intake Note: ESTABLISHED PATIENT for GERD + CIC mgmt. ED [place] [facility] - 02/2025. CC; C.O. intermittent GI sx persistence since last visit. Pt was seen at ED 02/2025. Pt would like to discuss potential alternative medications (injectables?) Outside Sales Consultant Required: Yes Outside Sales Consultant Services: Outside Sales Consultant Present Outside Sales Consultant Name: [facility] + [place] [id number] Information Interpreted: clinical only Accompanied by: Self / Same As Patient Allergies No Known Allergies (NKA) Allergy (Verified 05/04/25 16:11) HPI HPI f/u: Details: LAST VISIT: Abdominal bloating with cramps Chronic idiopathic constipation IBS (irritable bowel syndrome) GERD (gastroesophageal reflux disease) Plan Continue pantoprazole daily. Avoid dietary triggers and late night snacking staying upright for minimum 3 hours after meals discussed with patient. Patient can start taking Motegrity daily. Increase fluid intake and activity to promote better bowel motility. Patient will take Cipro only when having abdominal pain. Patient was encouraged to do clear liquids then when she will experience that. Follow-up in 8 weeks, sooner on as needed basis. Patient is agreeable to this plan and verbalizes understanding of instructions. She was given the opportunity to ask questions and all questions answered ? Thank you for allowing me to participate in her care New prucalopride (Motegrity) 2 mg PO DAILY 30 tabs 2RF K59.04 ciprofloxacin HCl 500 mg PO BID 14 tabs 0RF GENERAL SURGERY CONSULTATION NOTE FROM 02/19/2025 Assessment and Plan (1) Diverticulitis: Status: Acute Plan 54 years old with PMH of obesity, OAB, hx of diverticulitis, GERD and diabetes with acute onset of upper abdominal pain for 2 days associated with nausea and diarrhea. She reports this pain is different from her prior episodes of diverticulitis. She was admitted to the medical service for further treatment of the diverticulitis. General surgery was consulted for diverticulitis with possible abscess. Overall, she is clinically appearing well and her abd exam is benign with mild epigastric and left sided tenderness. CT scan shows only very mild inflammatory changes of the sigmoid, same location as her prior episodes. Her symptoms may be secondary to medication adverse effect with concomitant mild diverticulitis. Flex sig in 10/02 demonstrated multiple medium and large mouthed diverticula in left sided colon and round fluid density of the sigmoid seen on imaging likely represents a large diverticulum instead of an abscess given her benign presentation. She has no leukocytosis. Would recommend continuing supportive treatment for now with IV abx. Can advance to clear liquids. Will continue to follow. TODAY'S VISIT Patient is here today for follow-up. Patient was seen again in the ED back in February. Patient was diagnosed with diverticulitis. Patient reports that this is the 4th time this year. Her last episode 1st time admitted. As mentioned above possible abscess versus large mouthed diverticula. General surgery consulted. Patient was seen in the office and agreed to possible colon resection. Patient is worried that she might have diverticulosis throughout her whole colon. Diverticulosis seen on sigmoidoscopy in 2022 in the entire left side of the colon with moderate diverticulosis in the sigmoid colon. Patient reports that she is still having trouble moving her bowels. She is unable to have a normal complete bowel movement. Patient reports that her stools are soft. She is taking MiraLax and Dulcolax as well as stool softeners. Patient reports that she did not receive Motegrity from pharmacy. Patient tried GLP 1 for weight loss, however that caused too much constipation and her symptoms were getting worse. She believes that around every time that she tried GLP 1 she got diverticulitis. Patient denies any mucus in his stool. During last admission she had no leukocytosis. Patient denies fever or chills. [facility] Medical History (Reviewed 05/04/25 @ 16:11 by Fady Kendrick [facility] [place] Hx of sigmoidoscopy Post-menopause Diverticulosis Diverticulitis Family history of coronary artery bypass graft Smoking Chronic idiopathic constipation Obesity (BMI 30-39.9) Cigarette smoker Hepatic steatosis Surgical History H/O colonoscopy Hx of tonsillectomy Family History Brother Cancer Father Diabetes Mother Diabetes HTN (hypertension) Heart problem Family/Other Diabetes Social History Household Members: Children Housing: House Are you a primary neurocritical care physician to a significant other at home: No Do you presently have visiting nurse or other home services: No Alcohol intake: never Patient Tobacco Use Status: Former Tobacco user Cigarette Packs Per Day: 0.5 Cigarettes Per Day: 10.0 Second Hand Smoke Exposure: No service: No Review of Systems Const Denies weight gain and Denies weight loss ENT Reports no additional complaints, Denies dysphagia and Denies odynophagia Card Reports no additional complaints Resp Reports no additional complaints GI Reports abdominal pain (LLQ), Denies belching, Denies melena, Reports bloating, Denies change in bowel habits, Reports constipation, Reports GI cramping, Denies dysphagia, Denies excessive flatus, Denies dyspepsia, Denies heartburn, Denies diarrhea, Denies loose stools, Denies nausea, Denies odynophagia and Denies vomiting Reports no additional complaints Musc Reports no additional complaints Neuro Reports no additional complaints Psych Reports no additional complaints Endo Reports no additional complaints Physical Exam Const General: healthy appearing, no acute distress and well developed Nutritional Appearance: obese Orientation/consciousness: patient oriented x3 Resp Effort & Inspection: normal respiratory effort, able to speak in complete sentences, no tracheal deviation and symmetric chest movement Auscultation: clear to auscultation bilaterally Cardio Rate: regular rate GI Inspection: Yes normal to inspection, No distended and Yes obesity Palpation (GI): Soft to palpation, not firm, nontender and No hepatosplenomegaly present Auscultation: normal bowel sounds General: Yes no CVA tenderness Back/Spine/Pelvis Back: no CVA tenderness Skin General skin exam: elasticity normal, turgor normal and dry skin Neuro General: patient oriented x3 Psych Appearance: grossly normal Mental Status: mental status grossly normal Assessment & Plan Assessment & Plan (1) Diverticulosis: Code(s): K57.90 - Diverticulosis of intestine, part unspecified, without perforation or abscess without bleeding Category: Medical (2) Chronic idiopathic constipation: Code(s): K59.04 - Chronic idiopathic constipation Category: Medical (3) Diverticulitis: Code(s): K57.92 - Diverticulitis of intestine, part unspecified, without perforation or abscess without bleeding Category: Medical (4) Abdominal bloating with cramps: Code(s): R14.0 - Abdominal distension (gaseous); R10.9 - Unspecified abdominal pain Category: Medical (5) Postprandial abdominal bloating: Code(s): R14.0 - Abdominal distension (gaseous) Plan Patient will continue her current bowel management. Will call pharmacy about Motegrity and check on the PA. increase fluid intake and activity to promote better bowel motility. Patient will follow-up in 3 weeks to re-evaluate. Will send patient for colonoscopy earlier. Patient is concerned that she might have diverticulosis throughout the whole colon. Patient is afraid to go for surgery if that is the case. Explained to patient that CT scan did not show diverticulosis except for left side of her colon. Patient was encouraged to take fiber with pre and probiotic. Message sent to surgical schedulers to book colonoscopy for patient. What to expect before during and after procedure discussed with patient. Stressed the importance of good bowel prep and clear liquid diet day before procedure. Patient is agreeable to this plan and verbalizes understanding of instructions. She was given the opportunity to ask questions and all questions answered. Thank you for allowing me to participate in her care Medications: New bisacodyl (Dulcolax (bisacodyl)) 10 mg (2 x 5 mg) PO BEDTIME 180 tabs 4RF polyethylene glycol 3350 (Miralax) As directed by gastroenterology department at [facility] 238 grams PO ONCE 238 grams 0RF Z12.11 - Encounter for screening for malignant neoplasm of colon Changed From prucalopride (Motegrity) 2 mg PO DAILY PRN Constipation To prucalopride (Motegrity) 2 mg PO DAILY 30 tabs 0RF Constipation From polyethylene glycol 3350 (Miralax) 17 grams PO DAILY PRN Constipation To polyethylene glycol 3350 (Miralax) 17 grams PO DAILY 100 ea 2RF Constipation Refilled simethicone 180 mg PO BID PRN 180 caps 2RF abdominal distention Coding Level of Care Code Est Pt Level 4 (75951) Complex EM visit Add On G2211 Diagnoses Diverticulosis K57.90 Chronic idiopathic constipation K59.04 Diverticulitis K57.92 Abdominal bloating with cramps R14.0; R10.9 Postprandial abdominal bloating R14.0 Time Spent (min) 40 Comment 25 minutes spent with patient and additional 15 minutes spent reviewing her records
[2025-05-04 16:17] VITALS: BP 110/70; PULSE 92; O2SAT 95; BMI 40.6
--- OUTSIDE RECORDS SUMMARY | 2025-05-04 18:02 | XMS_ITS | Encounter Summary ---
Author Organization [employer] Address [address] [place] [address] 7 [place] [address] Care Team Providers Care Director Information Security Name Role Phone Christelle Rondon MD Primary Care Provide r Encounter Details Date Type Department Care Team ([facility] st Contact Info) Description 08/07/2023 Abstract [facility] MED[facility]INE [address] [place] [address] Marcella Reardon Social History Tobacco Use Types [...] Description 06/09/2025 3:30 PM EDT Office Visit [facility] [address] [place] [address] Christelle Rondon MD [address] [place] [address] documented as of this encounter Visit Diagnoses Not on filedocumented in this encounter Additional Health Concerns Assessment Noted Time PHQ-9 Depression Total Score: 0 04/05/20 23 3:44 PM EDT documented as of this encounter Care Teams Director Information Security Relationship Specialty Start Date End Date Christelle Rondon MD [address] [place] [phone] PCP - General Family Medicine 10/11/18 Carmelita Condon Balance Screwhead Polisher 11/29/23 02/29/24 documented as of this encounter
--- OUTSIDE RECORDS SUMMARY | 2025-05-04 18:02 | XMS_ITS | Encounter Summary ---
Author Organization [employer] Address [address] [place] [address] 7 [place] [address] Care Team Providers Care Soup Person Name Role Phone Christelle Rondon MD Primary Care Provide r Encounter Details Date Type Department Care Team ([facility] st Contact Info) Description 12/03/2024 Orders Only [facility] MEDICINE [address] [place], [place] [phone] Christelle Rondon MD [address] [place], [place] [phone] Social History Tobacco Use Types Packs/Day Years [...] t he electric, gas, oil or water [employer] threatened to shut off services in your [...] Description 06/09/2025 3:30 PM EDT Office Visit [facility] MEDICINE [address] [place] [phone] Christelle Rondon MD [address] [place] [address] documented as of this encounter Visit Diagnoses Not on filedocumented in this encounter Additional Health Concerns Assessment Noted Time PHQ-9 Depression Total Score: 0 04/05/20 23 3:44 PM EDT documented as of this encounter Care Teams Soup Person Relationship Specialty Start Date End Date Christelle Rondon MD [address] [place] [id number] PCP - General Family Medicine 10/11/18 documented as of this encounter
--- OUTSIDE RECORDS SUMMARY | 2025-05-04 18:02 | XMS_ITS | Encounter Summary ---
Author Organization [employer] Address [address] [place] [address] 7 [place] [address] Care Team Providers Care Die Set Up Worker Name Role Phone Christelle Rondon MD Primary Care Provide r Reason for Visit * Reason Comments Med Refill Encounter Details Date Type Department Care Team ([facility] st Contact Info) Description 02/02/2025 Refill [facility] MED[facility]INE [address] [place], [place] [phone] Christelle Rondon MD [address] [place] [address] Class 3 severe obesity due to excess [...] Description 06/09/2025 3:30 PM EDT Office Visit [facility] MED[facility]INE [address] [place] [phone] Christelle Rondon MD [address] [place] [address] documented as of this encounter Visit Diagnoses Diagnosis Class 3 severe obesity due to excess calories with serious comorbidity and body mass index (BMI) of 40.0 to 44.9 in adult Other constipation documented in this encounter Additional Health Concerns Assessment Noted Time PHQ-9 Depression Total Score: 0 04/05/20 23 3:44 PM EDT documented as of this encounter Care Teams Die Set Up Worker Relationship Specialty Start Date End Date Christelle Rondon MD [address] [place] [phone] PCP - General Family Medicine 10/11/18 documented as of this encounter
--- OUTSIDE RECORDS SUMMARY | 2025-05-04 18:02 | XMS_ITS | Encounter Summary ---
Author Organization [employer] Address [address] [place] [address] [place] [address] Care Team Providers Care Forklift Wheel Loader Name Role Phone Christelle Rondon MD Primary Care Provide r Reason for Visit * Reason Onset Date Comments Appointment Request 11/24/2022 Encounter Details Date Type Department Care Team (Late Contact Info) Description 11/24/2022 Telephone [facility] MEDICINE [address] [place] [phone] Christelle Rondon MD [address] [place] [address] Appointment Request Social History Tobacco Use Types [...] appt since last. Please contact pt at [phone] documented in this encounter Plan of Treatment Upcoming Encounters Date Type Department Care Team (Late Contact Info) Description 06/09/2025 3:30 PM EDT Office Visit [facility] MED[facility]INE [address] [place] [address] Chrisetlle Rondon MD [address] [place], [place] [phone] documented as of this encounter Visit Diagnoses Not on filedocumented in this encounter Care Teams Forklift Wheel Loader Relationship Specialty Start Date End Date Christelle Rondon MD [address] [place] [phone] PCP - General Family Medicine 10/11/18 Carmelita Condon Manager Media Relations 11/29/23 02/29/24 documented as of this encounter
--- OUTSIDE RECORDS SUMMARY | 2025-05-04 18:02 | XMS_ITS | Clinical Summary ---
Author Organization [employer] Address [address] [place] [address] [address] [place] [address] Care Team Providers Care Desktop Publishing Specialist Name Role Phone Christelle Rondon MD Primary Care Provide r Allergies No known active allergies Medications albuterol 108 (90 Base) MCG/ACT inhalerIndicati ons:Chronic cough Inhale 2 puffs every 6 (six) hours if needed for wheezing. 18 g 11 10/17/19 25 026 Active Diclofenac Sodium 1 % gelIndications: Multiple joint pain Apply 1 Application topically every 12 (twelve) hours if needed (apply on affected area if needed). 150 g 2 10/17/19 25 Active simethicone (Mylicon,Gas-X) 180 MG capsuleIndicati ons:Other constipation Take 1 capsule (180 mg) by mouth every 8 (eight) hours if needed for flatulence. 90 capsule 2 12/05/19 25 Active FREESTYLE LITE test stripIndication s:Newly diagnosed diabetes ([facility]) Use to test blood sugar 1 times daily 100 each 12 12/05/19 25 026 Active Lancets miscIndications :Newly diagnosed diabetes ([facility]) Use to test blood sugar 1 times daily 100 each 12/05/19 25 Active Blood Glucose Monitoring Suppl (FreeStyle [place] Lite) w/Device kitIndications: Newly diagnosed diabetes ([facility]) Use to test blood sugar 1 times daily 1 kit 12/05/19 25 Active Tirzepatide-Raul ght Management (Zepbound) 2.5 MG/0.5ML solutionIndicat ions:Class 3 severe obesity due to excess calories with serious comorbidity and body mass index (BMI) of 40.0 to 44.9 in adult Inject 2.5 mg under the skin 1 (one) time per week. 2 mL 01/31/20 25 Active docusate sodium (Colace) 100 MG capsule Take 1 capsule by mouth 2 times daily. 12/22/19 21 Active pantoprazole (ProtoNix) 40 MG EC tablet Take 1 tablet by mouth Once per day. 10/08/19 25 Active polyethylene glycol, PEG, 3350 (Miralax) 17 g packet Take 17 g by mouth Once per day. 10/08/19 25 Active Myrbetriq 50 MG 24 hr tablet Take 1 tablet by mouth Once per day. 10/15/19 25 Active Prucalopride Succinate 2 MG tablet Take 1 tablet by mouth Once per day. 12/17/19 25 Active Alcohol Swabs (Alcohol Prep) 70 % padsIndications :Newly diagnosed diabetes ([facility]) USE TO CHECK BLOOD SUGAR DAILY 100 each 11 04/10/20 25 Active oxybutynin XL (Ditropan XL) 5 MG 24 hr tablet Take 1 tablet (5 mg) by mouth Once per day. Do not crush, chew, or split. 90 tablet 1 04/28/20 24 025 Alcohol Swabs 70 % padsIndications :Newly diagnosed diabetes ([facility]) Use to test blood sugar 1 times daily 100 each 12/05/19 25 025 Discontinued Active Problems Problem Noted Date Diagnosed Date Acute bacterial pharyngitis 03/02/2025 Acute foreign body of left ear canal 03/02/2025 Chest pain 03/02/2025 Cigarette smoker 03/02/2025 Conjunctivitis 03/02/2025 Diverticulitis of sigmoid colon 03/02/2025 Ehrlichiosis 03/02/2025 Acute diverticulitis 03/02/2025 Enteritis 03/02/2025 Esophagitis 03/02/2025 Family history of coronary artery bypass graft 0 03/02/2025 Gastric reflux 03/02/2025 Influenza A 03/02/2025 Left flank pain 03/02/2025 Lymphadenopathy 03/02/2025 Nausea & vomiting 03/02/2025 Scalp cyst 03/02/2025 Sebaceous cyst 03/02/2025 URI (upper respiratory infection) 03/02/2025 Visit for suture removal 03/02/2025 Headache 03/02/2025 Constipation 03/02/2025 Assessment & Plan (03/02/2025 2:00 PM EDT): Possible side effect of glp-1 , holding at this time due to likely upcoming colonoscopy Urinary tract infection 03/02/2025 Hyperglycemia 03/02/2025 Acute pain of left knee 01/30/2025 Assessment & Plan (01/30/2025 11:36 AM EDT): X-ray will be ordered today patient will be contacted with results Bilateral hand pain 01/30/2025 Assessment & Plan (01/30/2025 11:37 AM EDT): I will prescribe today bilateral wrist braces to be used at night and during the day as much as possible Newly diagnosed diabetes 12/04/2024 Assessment & Plan [...] 44.9 in adult 10/17/2024 Assessment & Plan (03/02/2025 1:59 PM EDT): Hold glp-1 due to constipation and potential upcoming colonoscopy, continue to check sugars, todays glucose at goal. May revisit once GI plan is established Assessment & Plan (01/30/2025 11:36 AM EDT): Extensive counseling about healthy diet and exercise done today I discontinue her phentermine and topiramate due to side effects of anxiety, palpitations and insomnia also because it is not effective I will prescribe today Zepbound 2.5 mg weekly Assessment & Plan (12/05/2024 9:27 AM EDT): [...] shoulder pain 12/22/2022 Colitis 12/22/2022 Diverticulitis 12/22/2022 Assessment & Plan (03/02/2025 2:01 PM EDT): Referral to surgery and gi unclear which team will manage moving forward. Herpes zoster without complication 12/22/2022 Elevated LFTs 12/22/2022 Furuncle of buttock 12/22/2022 Hand pain 12/22/2022 Multiple joint pain 12/22/2022 Assessment & Plan (06/28/2023 3:39 PM EDT): Rheumatology referral information will be send through mail Neck pain 12/22/2022 Recurrent urinary tract infection 12/22/2022 Skin tag 12/22/2022 Sigmoid diverticulosis 08/16/2022 Resolved Problems Problem Noted Date Diagnosed Date Resolved Date Inguinal lymphadenopathy 12/22/2022 Prediabetes 12/22/2022 01/30/2025 Assessment & Plan (10/17/2024 4:31 PM EST): [...] healthy diet (low calorie) and cardiovascular exercise Encounters Date Type Department Care Team Description 04/10/2025 Refill [facility] [address] [place] [phone] Christelle Rondon MD Newly diagnosed diabetes ([facility]) 03/30/2025 Telephone [facility] [address] [place] [address] [phone] Christelle Rondon MD No Show 03/27/2025 Telephone [facility] [address] [place] [phone] Christelle Rondon MD Chart prep 03/02/2025 1:15 PM EDT Office Visit [address] [phone] Linnette Arana NP Diverticulitis (Primary Dx); Hyperglycemia; Class 3 severe obesity due to excess calories with serious comorbidity and body mass index (BMI) of 40.0 to 44.9 in adult; Drug-induced constipation 03/02/2025 Travel 02/24/2025 Patient Outreach [facility] [address] [place] [phone] Christelle Rondon MD Transition Of Care (Tcm) (HDF unscheduled and SDOH screening completed on 01/30/25) 02/19/2025 Orders Only GENERIC EXTERNAL DATA DEPARTMENT Provider, Generic External Data 02/10/2025 Telephone [facility] [address] [place] [address] Christelle Rondon MD Medication Question 02/02/2025 Refill [facility] [address] [place] [address] Christelle Rondon MD Class 3 severe obesity due to excess calories with serious comorbidity and body mass index (BMI) of 40.0 to 44.9 in adult; Other constipation from Last 3 Months Immunizations Immunization Administration Dates Next Due Influenza injectable quadrivalent [...] Sign Reading Time Taken Comments Blood Pressure 90/72 03/02/2025 1:35 PM EDT Pulse 67 03/02/2025 1:35 PM EDT Temperature 35.9 C (96.6 F) 03/02/2025 1:35 PM EDT Respiratory Rate 14 03/02/2025 1:35 PM EDT Oxygen Saturation 97% 03/02/2025 1:35 PM EDT Inhaled Oxygen Concentration - - Weight 98.5 kg (217 lb 3.2 oz) 03/02/2025 1:35 P M EDT Height 157.5 cm (5' 2 ) 03/02/2025 1:35 PM EDT Body Mass Index 39.73 03/02/2025 1:35 PM EDT Plan of Treatment Upcoming Encounters Date Type Department Care Team (Late st Contact Info) Description 06/09/2025 3:30 PM EDT Office Visit [facility] [address] [place] [address] Christelle Rondon MD [address] [place] [address] Health Maintenance Due Date Last Done Comments CT Colonography 1970 FIT DNA/Cologuard 1970 FIT 1970 FOBT 1970 HIV Screening 1970 Sigmoidoscopy 1970 Diabetes: Foot Exam 1980 Eye Exam 1980 Hepatitis C Screening 1988 Diabetes: Urine Protein Screening 1989 Hepatitis B Vaccines (1 of 3 - 19+ 3-dose series) 1989 Pneumococcal Vaccine: 50+ Years (1 of 2 - PCV) 1989 Zoster Vaccines (1 of 2) 2020 Mammogram 10/16/2020 10/16/2018 Lipid Panel 06/14/2021 06/14/2020 COVID-19 Vaccine ( season) 2024 Diabetes: Hemoglobin A1C 04/16/2025 025, 09/08/2023, 01/18/2022, Additional history exists Influenza Vaccine (#1) 2025 10/11/2018 Depression Screening 10/17/2025 10/17/2024, 04/05/20 Cervical Cancer Screening 12/31/2025 HPV/Cotest 12/31/2025 12/23/2020 Pap Smear 12/31/2025 12/31/2020 Alcohol/Substance Use Screening 01/30/2026 01/30/2025 Disability Screening 01/30/2026 01/30/2025 SDOH Screening 01/30/2026 01/30/2025 Tobacco Screening 03/02/2026 03/02/2025 Colonoscopy 10/05/2027 10/05/2022 Colorectal Cancer Screening 10/05/2027 DTaP/Tdap/Td Vaccines (2 - Td or Tdap) [...] patient's age to complete this topic Meningococcal B Vaccine Aged Out No l onger eligible based on patient's age to complete [...] Name Priority Date/Time Associated Diagnosis Comments POCT GLUCOSE Routine 03/02/2025 1:[address] ABDOMEN PELVIS WO CONTRAST Routine 02/19/2025 6:52 AM EDT HIGH SENSITIVITY TROPONIN I Routine 02/19/2025 1:39 AM EDT URINALYSIS, COMPLETE, WITH REFLEX TO CULTURE Routine 02/19/2025 1:39 AM EDT LIPASE Routine 02/19/2025 1:39 AM EDT MAGNESIUM Routine 02/19/2025 1:39 AM EDT COMPREHENSIVE METABOLIC PANEL, FASTING Routine 02/19/2025 1:39 AM EDT URINALYSIS WITH REFLEX MICROSCOPIC Routine 02/19/2025 1:39 AM EDT CBC WITH AUTO DIFFERENTIAL Routine 02/19/2025 1:39 AM EDT POCT GLYCATED HEMOGLOBIN, TOTAL Routine 10/17/2024 12:08 PM EST Prediabetes HM COLONOSCOPY Routine 10/05/2022 THINPREP PAP Routine 12/31/2020 11:11 AM EDT HPV GENOTYPES 16,18/45 Routine 3:11 AM EDT LIPID PANEL, STANDARD Routine 06/14/2020 8:40 AM EDT BI MAMMOGRAM SCREENING BILATERAL Routine 10/16/2018 3:56 PM EST from Last 3 Months or Most Recently Relevant to Health Maintenance Results * POCT Glucose (03/02/2025 1:55 PM EDT) Glucose Blood, POC 123 60 - 200 mg/dL QC Media Lot # [id number] Lot# Expiration Date Blood Capillary blood specimen / Unknown 03/02/2025 1:55 PM EDT Linnette Arana NP POINT OF CARE TEST ENTER/EDIT OR DERABLES Final Result * CT Abdomen Pelvis w/o Contrast (02/19/2025 6:52 AM EDT) Anatomical Region Laterality Modality Body, Pelvis, Abdomen Computed T omography 02/19/2025 6:52 AM EDT Narrative 02/19/2025 6:53 AM EDT [place] [address] CT Scan Report Signed with Nataly Patient: Yoon Hill MR#: [id number] : 1970 Acct:[id number] Age/Sex: 54 / F ADM Date: 02/19/25 Loc: HO.ED Attending Dr: Ordering Physician: Justin Arreaga MD Date of Service: 02/19/25 Procedure(s): CT abdomen pelvis wo IV con Accession Number(s): [id number] cc: [facility]; Justin Arreaga MD Report Number: [id number]: Total DLP = 770.00 mGy-cm ADDENDUM This document has been electronically signed by: Roni Arreola MD on 02/19/2025 06:52:07 ADDENDUM: Receipt of this report by the clinical staff was confirmed with Dr. Arreaga on Feb 19, 2025 07:09:00 EDT. This document has been electronically signed by: Hyacinth Duarte on 02/19/2025 07:09:42 Addendum Dictated By: Roni Arreola MD Addendum Signed By: <Electronically signed by Roni Arreola MD in OV> 02/19/25 0710 Addendum Cosigned By: DD/ /03/652 TD/TT: 02/19/2509/03/709 CLINICAL HISTORY: Abdominal pain with history of diverticulitis CT abdomen and pelvis without contrast Comparison: None Findings: No consolidation or effusion. There is mild airway thickening of the lung bases and there are linear regions of atelectasis. The liver, gallbladder, spleen, adrenal glands and pancreas are unremarkable. Right renal cyst measuring up to 5.7 cm. No suspicious renal lesion, obstructive uropathy or urinary calculus. The bladder is unremarkable. The uterus demonstrates a possible left-sided fibroid. No adnexal mass. Mild abnormal stranding about the sigmoid colon in the region of thickening, axial images 68-73. There is a small rounded fluid density structure abutting the dorsal surface of the sigmoid colon axial 66 and coronal 52 which may reflect a large diverticulum or very small early abscess. No free fluid or free air. No acute osseous finding. Impression: Findings suggest sigmoid diverticulitis with abnormal thickening of the sigmoid colon and mild surrounding stranding. GI follow-up recommended to ensure resolution of the sigmoid thickening. Nonspecific fluid density structure abutting the sigmoid may reflect a fluid-filled diverticulum or small early abscess. Close continued follow-up recommended. This document has been electronically signed by: Roni Arreola MD on 02/19/2025 06:52:07 Dictated By: Roni Arreola MD Signed By: <Electronically signed by Roni Arreola MD in OV> 02/19/25651 DD/ 1 TD/TT: 02/19/25651 Outer Diameter Grinder: Procedure Note Donotuseinterpreter, Image - 02/19/[address] [place] [address] [address] Scan Report Signed with Addenda Patient: Reina Hill#: [id number] : 1970Acct:[id number] Age/Sex: 54 / FADM Date: 02/19/25 Loc: .ED Attending Dr: Ordering Physician: Justin Arreaga MD Date of Service: 02/19/25 Procedure(s): CT abdomen pelvis wo IV con Accession Number(s): [id number] cc: [facility]; Justin Arreaga MD Report Number: [id number]: Total DLP = 770.00 mGy-cm ADDENDUM This document has been electronically signed by: Roni Arreola MD on 02/19/2025 06:52:07 ADDENDUM: Receipt of this report by the clinical staff was confirmed with Dr. Arreaga on Feb 19, 2025 07:09:00 EDT. This document has been electronically signed by: Hyacinth Duarte on 02/19/2025 07:09:42 Addendum Dictated By: Roni Arreola MD Addendum Signed By: <Electronically signed by MD Erik in OV> 02/19/25709 Addendum Cosigned By: DD/ /03/652 TD/TT: 02/19/2509/03/709 CLINICAL HISTORY: Abdominal pain with history of diverticulitis CT abdomen and pelvis without contrast Comparison: None Findings: No consolidation or effusion. There is mild airway thickening of the lung bases and there are linear regions of atelectasis. The liver, gallbladder, spleen, adrenal glands and pancreas are unremarkable. Right renal cyst measuring up to 5.7 cm. No suspicious renal lesion, obstructive uropathy or urinary calculus. The bladder is unremarkable. The uterus demonstrates a possible left-sided fibroid. No adnexal mass. Mild abnormal stranding about the sigmoid colon in the region of thickening, axial images 68-73. There is a small rounded fluid density structure abutting the dorsal surface of the sigmoid colon axial 66 and coronal 52 which may reflect a large diverticulum or very small early abscess. No free fluid or free air. No acute osseous finding. Impression: Findings suggest sigmoid diverticulitis with abnormal thickening of the sigmoid colon and mild surrounding stranding. GI follow-up recommended to ensure resolution of the sigmoid thickening. Nonspecific fluid density structure abutting the sigmoid may reflect a fluid-filled diverticulum or small early abscess. Close continued follow-up recommended. This document has been electronically signed by: Roni Arreola MD on 02/19/2025 06:52:07 Dictated By: Roni Arreola MD Signed By: <Electronically signed by Roni Arreola MD in OV> 02/19/2552 DD/ 1 TD/TT: 02/19/25651 Outer Diameter Grinder: [facility] External Provider IMG CT PROCEDURES Edited Result - Final * (ABNORMAL) Comprehensive Metabolic Panel, Fasting (02/19/2025 1:39 AM EDT) Sodium 142 135 - 145 mmol/L [facility] Potassium 3.6 3.3 - 5.1 mmol/L [facility] Chloride 111(H) 96 - 108 mmol/L [facility] Carbon Dioxide 21(L) 22 - 29 mmol/L [facility] Anion Gap 14 12 - 20 [facility] Urea Nitrogen (BUN) 19(H) 9 - 16 mg/dL [facility] Creatinine, Serum 0.97 0.5 - 1.4 mg/dL [facility] Creatinine Clr Calc Pharmacy 72.3 [facility] Comment:Provided height and weight: 157.48 cm,97.5 kg.eGFR (calculated from the MDRD study equation) and eCrCl(calculated from the Cockcroft-Gault equation) are based ondifferent parameters and may not yield comparable results.If eCrCl result is absurd, please check patient'sheight/weight. Estimated Glomerular Filt Rate 60 [facility] Comment:Chronic Kidney Disea se: Estimated GFR < 60 mL/min/1.58u4Fwoqpj Kidney Disease: Estimated GFR < 15 mL/min/1.73m2 Glucose Fasting 107(H) 60 - 99 mg/dL [facility] Comment:A fasting glucose fr om 100-125 mg/dl is considered impaired(pre-diabetes). Calcium 10.0 8.4 - 10.2 mg/dL [facility] Bilirubin, Total 0.2 0.0 - 1.0 mg/dL [facility] Aspartate Amino Transferase 40(H) 5 - 31 U/L [facility] Alanine Aminotransferase 37(H) 0 - 31 U/L [facility] Total Protein 8.0 6.5 - 8.0 g/dL [facility] Albumin Level 4.8 3.5 - 5.0 g/dL [facility] Alkaline Phosphatase 85 39 - 117 U/L [facility] 02/19/2025 1:39 AM EDT 02/19/2025 1:42 AM EDT us Generic External Data Provider LAB BLOOD ORDERAB LES Final Result [facility] [address] [place] [phone] * High Sensitivity Troponin I (02/19/2025 1:39 AM EDT) TROPONIN I HIGH SENSITIVITY <2.7 <3.5 - 17.0 ng/L [facility] Comment:The [place] high sens itivity Troponin-I results should beused in conjunction with other diagnostic information suchas ECG, clinical observations and information, and patientsymptoms to aid in the diagnosis of HI. 02/19/2025 1:39 AM EDT 02/19/2025 1:42 AM EDT us Generic External Data Provider LAB BLOOD ORDERAB LES Final Result [facility] [address] [place] [phone] * (ABNORMAL) Urinalysis, Complete, with Reflex to Culture (02/19/2025 1:39 AM EDT) Color Urine Yellow [facility] Appearance Urine Clear [facility] PH 5.5 5.0 - 9.0 [facility] Glucose Urine UA Negative Negative mg/dL [facility] Urine Blood Moderate (2+)(A) Negative [facility] Specific [place] - Urine 1.020 1.005 - 1.025 [facility] Urine Protein Negative Neg-Trace mg/dL [facility] Urine Ketones Negative Negative mg/dL [facility] Nitrite Urine Negative Negative [facility] Leukocyte Esterase Urine Small (1+)(A) Negative [facility] RBC Urine 3-5(A) 0 - 2 /HPF [facility] Urine WBC 6-10(A) 0 - 5 /HPF [facility] Urine Squamous Epithelial Cell 0-2 0 - 2 /HPF [facility] Urine Bacteria None Seen None Seen [facility] Hyaline Casts, Urine 0-2 0 - 2 /LPF [facility] 02/19/2025 1:39 AM EDT 02/19/2025 1:42 AM EDT Narrative [facility] - 02/19/2025 2:08 AM EDT [id number], Clean Catch us Generic External Data Provider LAB URINE ORDERAB LES Final Result [facility] [address] [place], [place] [phone] * (ABNORMAL) CBC auto differential (02/19/2025 1:39 AM EDT) White Blood Count 8.5 4.8 - 10.8 X10*3/uL [facility] Red Blood Count 4.36 4.20 - 5.50 X10*6/uL [facility] Hemoglobin 13.8 12.0 - 16.0 g/dl [facility] Hematocrit 40.1 37.0 - 47.0 % [facility] Mean Corpuscular Volume 92.0 80.0 - 98.0 fL [facility] Mean Corpuscular Hemoglobin 31.7 27.0 - 33.0 pg [facility] Mean Corpuscular HGB Conc 34.4 31.0 - 35.0 g/dl [facility] Red Cell Distribution Width 11.9 11.0 - 16.0 % [facility] Platelet Count 201 160 - 400 X10*3/uL [facility] Mean Platelet Volume 12.5(H) 9.4 - 12.3 fL [facility] Neutrophils Percent Auto 62.5 45 - 73 % [facility] Imm Gran Pct Auto 0.2 0.0 - 0.4 % [facility] Lymphocytes Percent Auto 29.0 20 - 40 % [facility] Monocytes Percent Auto 6.9 2 - 11 % [facility] Eosinophils Percent Auto 1.2 0 - 4 % [facility] Basophils Percent Auto 0.2 0 - 2 % [facility] NRBC Pct Auto 0.0 0.0 - 0.2 /100WBC [facility] Neutrophils Absolute Auto 5.3 2.0 - 8.3 x10*3/uL [facility] Imm Gran Abs Auto 0.02 0.00 - 0.03 X10*3/uL [facility] Lymphocytes Absolute Auto 2.5 1.2 - 4.9 X10*3/uL [facility] Monocytes Absolute Auto 0.6 0.1 - 1.2 X10*3/uL [facility] Eosinophils Absolute Auto 0.1 0.0 - 0.4 X10*3/uL [facility] Basophils Absolute Auto 0.0 0.0 - 0.2 X10*3/uL [facility] NRBC Abs Auto 0.000 0.0 - 0.012 X10*3/uL [facility] 02/19/2025 1:39 AM EDT 02/19/2025 1:42 AM EDT us Generic External Data Provider LAB BLOOD ORDERAB LES Final Result Performing Organization Address [facility] de Phone Number [facility] [address] [place] [phone] * (ABNORMAL) Urinalysis w/reflex microscopic (02/19/2025 1:39 AM EDT) Color Urine Yellow [facility] Appearance Urine Clear [facility] PH 5.5 5.0 - 9.0 [facility] Glucose Urine UA Negative Negative mg/dL [facility] Urine Blood Moderate (2+)(A) Negative [facility] Specific [place] - Urine 1.020 1.005 - 1.025 [facility] Urine Protein Negative Neg-Trace mg/dL [facility] Urine Ketones Negative Negative mg/dL [facility] Nitrite Urine Negative Negative [facility] Leukocyte Esterase Urine Small (1+)(A) Negative [facility] 02/19/2025 1:39 AM EDT 02/19/2025 1:42 AM EDT Narrative [facility] - 02/19/2025 1:53 AM EDT [id number], Clean Catch us Generic External Data Provider LAB URINE ORDERAB LES Final Result Performing Organization Address [facility] Co de Phone Number [facility] [address] [place] [phone] * Magnesium (02/19/2025 1:39 AM EDT) Pathologist [facility] Magnesium 2.0 1.6 - 2.6 mg/dL [facility] 02/19/2025 1:39 AM EDT 02/19/2025 1:42 AM EDT us Generic External Data Provider LAB BLOOD ORDERAB LES Final Result [facility] [address] [place] [phone] * Lipase (02/19/2025 1:39 AM EDT) [facility] Lipase 44 8 - 78 U/L [facility] 02/19/2025 1:39 AM EDT 02/19/2025 1:42 AM EDT Generic External Data Provider LAB BLOOD ORDERAB LES Final Result Performing Organization Address City/[facility]/ZIP Co de Phone Number [facility] [address] [place] [phone] * (ABNORMAL) POCT HGB A1C (10/17/2024 12:08 PM EST) [facility] Hemoglobin A1C 6.5(A) 4.0 - 6.0 % Blood 10/17/2024 12:0 8 PM EST us Christelle Jorge MD POINT OF CARE TEST EN TER/EDIT ORDERABLES Final Result * Colonoscopy (10/05/2022) [facility] Colonoscopy Normal Normal Narrative Marcella Reardon - 10/05/2022 Colonoscopy order added ,Recommended 3 years . See see external hospital admission note on 10/05/2022 us Historical Provider HEALTH MAINTENANCE Final Result * THINPREP PAP (12/31/2020 11:11 AM EDT) Clinical Information: [facility] COMMENT SEE COMMENT [facility] Comment: EXPLANATORY NOTE: The Pap is a screening test for cervical cancer. It is not a diagnostic test and is subject to false negative and false positive results. It is most reliable when a satisfactory sample, regularly obtained, is submitted with relevant clinical findings and history, and when the Pap result is evaluated along with historic and current clinical information. 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 [facility] LMP: NONE [facility] Prev. BX: NONE [facility] Prev. PAP: NONE [facility] SOURCE: NONE [facility] Statement Of Adequacy: SEE COMMENT [facility] Comment: Satisfactory for evaluation. Endocervical/transformation zone component present. Age and/or menstrual status not provided 12/31/2020 11:1 1 AM EDT Christelle Jorge MD LAB PATHOLOGY ORDERAB LES Final Result [facility] [address] * HPV GENOTYPES 16,18/45 (12/23/2020 3:11 AM EDT) HPV 16 RNA NOT DETECTED NOT DETECTED [facility] HPV 18/45 RNA NOT DETECTED NOT DETECTED [facility] Comment: Methodology: Tool Maker Mediated Amplification The analytical performance characteristics of this assay have been determined by [employer]. The modifications have not been cleared or approved by the FDA. This assay has been validated pursuant to the CLIA regulations and is used for clinical purposes. NO COLLECTION DATE RECEIVED. WE HAVE USED THE DATE THE SPECIMEN WAS RECEIVED BY THIS LABORATORY THE COLLECTION DATE. IF THIS IS INCORRECT, PLEASE CONTACT CLIENT SERVICES. PHONE NUMBER: 12/23/2020 3:11 AM EDT us Christelle Jorge MD LAB CYTOLOGY ORDERABL ES Final Result [facility] [address] [place] [id number] [place] * (ABNORMAL) LIPID PANEL, STANDARD (06/14/2020 8:40 AM EDT) Triglycerides 165(H) <150 mg/dL [facility] Triglycerides 165(H) <150 mg/dL [facility] LDL Cholesterol 162(H) mg/dL (calc) [facility] Comment: Reference range: <100 Desirable range <100 mg/dL for primary prevention; <70 mg/dL for patients with CHD or diabetic patients with > or = 2 CHD risk factors. LDL-C is now calculated using the Arvind-Lai calculation, which is a validated novel method providing better accuracy than the Friedewald equation in the estimation of LDL-C. Arvind SS et al. TINO. 2013;310(19): 2785-2394 (http://education.[employer].com/faq/CMS725) Chol/HDLC Ratio 6.7(H) <5.0 (calc) [facility] LDL Cholesterol 162(H) mg/dL (calc) [facility] Comment: Reference range: <100 Desirable range <100 mg/dL for primary prevention; <70 mg/dL for patients with CHD or diabetic patients with > or = 2 CHD risk factors. LDL-C is now calculated using the Arvind-Lai calculation, which is a validated novel method providing better accuracy than the Friedewald equation in the estimation of LDL-C. Arvind SS et al. TINO. 2013;310(19): 5535-8089 (http://education.[employer]/faq/TVL458) HDL Cholesterol 34(L) > OR = 50 mg/dL [facility] HDL Cholesterol 34(L) > OR = 50 mg/dL [facility] Non-HDL Cholesterol 193(H) <130 mg/dL (calc) [facility] Comment: For patients with diabetes plus 1 major ASCVD risk factor, treating to a non-HDL-C goal of <100 mg/dL (LDL-C of <70 mg/dL) is considered a therapeutic option. Non-HDL Cholesterol 193(H) <130 mg/dL (calc) [facility] Comment: For patients with diabetes plus 1 major ASCVD risk factor, treating to a non-HDL-C goal of <100 mg/dL (LDL-C of <70 mg/dL) is considered a therapeutic option. Cholesterol, Total 227(H) <200 mg/dL [facility] Chol/HDLC Ratio 6.7(H) <5.0 (calc) [facility] Cholesterol, Total 227(H) <200 mg/dL [facility] 06/14/2020 8:40 AM EDT Christelle Jorge MD LAB BLOOD ORDERABLES Final Result [facility] [address] * DIGITAL BILATERAL SCREEN 1 (10/16/2018 [...] Most Recently Relevant to Health Maintenance [facility] Care Teams Desktop Publishing Specialist Relationship Specialty Start Date End Date Christelle Rondon MD [address] [place] [id number] PCP - General Family Medicine 10/11/18
== END 2025-05-04 18:06 | disposition home or self-care (01) ==
PROVIDERS: PCP Internal Medicine; Visit Provider Nurse Practitioner Family
DX: K57.90 Diverticulosis of intestine, part unspecified, without perforation or abscess without bleeding (principal); K59.04 Chronic idiopathic constipation; K57.92 Diverticulitis of intestine, part unspecified, without perforation or abscess without bleeding; R14.0 Abdominal distension (gaseous); R10.9 Unspecified abdominal pain
CPT/HCPCS: 99214

== ENCOUNTER → 2025-05-04 16:09 | Outpatient (BNVA) | payer MEDICAID, SELFPAY | PROVIDERS: PCP Internal Medicine; Visit Provider Nurse Practitioner Family | DX: Z01.818 Encounter for other preprocedural examination (principal); R14.0 Abdominal distension (gaseous); R10.9 Unspecified abdominal pain; K57.92 Diverticulitis of intestine, part unspecified, without perforation or abscess without bleeding; K59.04 Chronic idiopathic constipation | CPT/HCPCS: 99212 ==

== ENCOUNTER 2025-06-02 08:02 | Emergency (ER) | payer MEDICAID, SELFPAY ==
[2025-06-02 08:10] VITALS: BP 137/80; PULSE 91; RESP 18; TEMP 36.3; O2SAT 99; BMI 40.6
--- NOTE | 2025-06-02 08:25 | ED_ITS ---
HPI - Abdominal Pain General Chief Complaint: Abdominal Pain Stated Complaint: Diverticulitis? Time Seen by Provider: 06/02/25 08:24 Source: patient and RN notes reviewed Mode of arrival: ambulatory Limitations: no limitations History of Present Illness ED Provider: Franny Lyman PA-C HPI narrative: This is a [id number]-female, with a hx of diverticulitis, GERD and diabetes who presents to the ER with complaints of abdominal pain, chills which started today. Patient reports that she awoke at 4:00 a.m. this morning and developed 4 episodes of nonbloody diarrhea. She states that she also has had low back pain which is typical of her diverticulitis flare-ups. She endorses some nausea, no fevers, chest pain, shortness of breath, vomiting, or urinary symptoms. She saw her GI specialist in April and was supposed to start on a new medication however she did not started this. Denies taking any medications prior to arrival. No other complaints or concerns at this time. MD elicited complaint: abdominal pain Onset (ago): day(s) Pain Consistency: constant Location: none Severity: moderate Quality: cramping Radiation: none Exacerbating factors: nothing Relieving factors: nothing Associated symptoms: denies other symptoms Related Data Home Medications ?Medication ?Instructions ?Recorded ?Confirmed acetaminophen 325 mg tablet 650 mg PO Q4H PRN Pain 09/0304/09/25 docusate sodium 100 mg capsule 100 mg PO BID PRN Const ipation 02/19/25 04/09/25 (Stool Softener) ibuprofen 200 mg tablet 200 mg PO Q6H PRN Pain 02/1904/09/25 loratadine 10 mg tablet (Claritin) 10 mg PO DAILY PRN Allergy Symptoms 02/19/25 04/09/25 Previous Rx's ?Medication ?Instructions ?Recorded incontinence pad, liner, disp #90 ea 08/22/24 (Pads For Women) bisacodyl 5 mg tablet,delayed 10 mg (2 x 5 mg) PO BEDT BRITTON #180 05/04/25 release (Dulcolax (bisacodyl)) tabs polyethylene glycol 3350 17 gram 17 g PO DAILY Constip ation #100 ea 05/04/25 oral powder packet (Miralax) polyethylene glycol 3350 17 238 g PO ONCE #238 grams 0 05/04/25 gram/dose oral powder (Miralax) simethicone 180 mg capsule 180 mg PO BID PRN abdominal 05/04/25 distention #180 caps prucalopride 2 mg tablet 2 mg PO DAILY Constipation # 30 tabs 05/06/25 (Motegrity) acetaminophen 500 mg tablet 1,000 mg (2 x 500 mg) PO Q 8H PRN 06/02/25 (Tylenol Extra Strength) pain #30 tabs amoxicillin 875 mg-potassium 1 tab PO BID 7 days #14 t abs 06/02/25 clavulanate 125 mg tablet morphine 15 mg immediate release 15 mg PO Q6H #5 tabs 06/02/25 tablet ondansetron 4 mg disintegrating 4 mg PO Q6H PRN nausea and 06/02/25 tablet vomiting #12 tabs Allergies Allergy/AdvReac Type Severity Reaction Status Date / Time No Known Allergies (NKA) Allergy Verified 06/02/25 08:12 Review of Systems Review of Systems Constitutional : No Fever, No Chills ENT/Mouth : No sore throat, No Rhinorrhea Eyes: No Eye Pain, No Swelling, No Redness Cardiovascular : No Chest Pain, No SOB Respiratory : No Cough, No Sputum Gastrointestinal : + Nausea, No Vomiting, + Diarrhea, + abdominal Pain Genitourinary : No Dysuria, No Hematuria Musculoskeletal : No joint pain, No Myalgias, No Joint Swelling Skin : No Skin Lesions Neuro : No Weakness, No Numbness, No Headache All other systems reviewed and are negative Yes all other systems are reviewed and are negative Constitutional: Reports as per [facility] Past Medical History Attestation statement: The following information was validated with the patient. Medical History Hx of sigmoidoscopy Post-menopause Diverticulosis Diverticulitis Family history of coronary artery bypass graft Smoking Chronic idiopathic constipation Obesity (BMI 30-39.9) Cigarette smoker Hepatic steatosis Surgical History H/O colonoscopy Hx of tonsillectomy Family History Family History Brother Cancer Father Diabetes Mother Diabetes HTN (hypertension) Heart problem Family/Other Diabetes Social History Social History Household Members: Children Housing: House Are you a primary health care recruiter to a significant other at home: No Do you presently have visiting nurse or other home services: No Alcohol intake: never Patient Tobacco Use Status: Former Tobacco user Cigarette Packs Per Day: 0.5 Cigarettes Per Day: 10.0 Second Hand Smoke Exposure: No Advance Directives: No Advance Directives Information Provided: Yes Do you have a plan to hurt others: No Plan service: No Physical Exam ED Vital Signs: Vital Signs - 24 hr 06/02/25 08:10 06/02/25 10:11 06/02/25 11:43 Temperature 97.3 F 98 F Pulse Rate 91 89 81 Respiratory Rate 18 16 18 Blood Pressure 137/80 95/55 L 97/57 L Pulse Oximetry 99 95 94 Oxygen Delivery Method Room Air Room Air Room Air 06/02/25 12:51 Temperature 98 F Pulse Rate 81 Respiratory Rate 18 Blood Pressure 97/57 L Pulse Oximetry 94 Oxygen Delivery Method Room Air BMI result Body Mass Index 40.6 Const General: cooperative, comfortable and no acute distress Orientation/consciousness: patient oriented x3 Limitations: no limitations [facility] Head: Yes normal to inspection, Yes normocephalic and Yes atraumatic Ears: hearing grossly normal bilaterally General nose exam: Normal external nose present Face and sinus: Yes normal facial exam Mouth: Normal oral and palatal mucosa present, oropharynx normal and moist mucous membranes Throat: Yes posterior oropharynx normal Eyes General: appearance normal, both eyes and all related structures Eyelids: Yes eyelids normal Conjunctivae: conjunctivae normal Sclerae: sclerae normal Pupils: Equal, round and reactive pupils present EOM: EOMs intact bilaterally Neck Neck: Yes normal visual inspection, Yes full ROM and Yes no lymphadenopathy Lymphatic: no lymphadenopathy noted Chest Chest palpation & inspection: normal inspection of the chest Resp Effort & Inspection: normal respiratory effort and able to speak in complete sentences Auscultation: clear to auscultation bilaterally, no crackles, no rales, no rhonchi and no wheezes Cardio Rate: regular rate Rhythm: regular rhythm Heart sounds: S1 normal heart sound present and S2 normal heart sound present GI Other: Abdomen is soft, nontender, nondistended. Inspection: Yes normal to inspection Back/Spine/Pelvis Other: Mild tenderness palpation to the lumbar paraspinous muscles Skin General skin exam: no rashes or lesions noted Trauma: no lacerations or abrasions Wounds: no wounds Neuro General: patient oriented x3 and moves all extremities Cranial nerves: Yes Equal, round and reactive pupils present Extrem General: Yes normal to inspection Right upper extremity: normal to inspection Left upper extremity: normal to inspection Right lower extremity: normal to inspection Left lower extremity: normal to inspection Medical Decision Making Medical Decision Making [facility] Narrative: This is a 32-fufh-evk-female, with a hx of diverticulitis, GERD and diabetes who presents to the ER with complaints of abdominal pain, chills which started today. On arrival, patient is well-appearing, appears to be under no acute distress, vital signs reveal she is slightly hypertensive at 137/80, all other vital signs within normal limits. Abdomen is soft, nontender, nondistended, she does have tenderness palpation in her lumbar back which she states is consistent with her early diverticulitis flares. Patient has been here numerous times for similar diverticulitis flare-ups and has received many CT scans without any significant acute complications from diverticulitis. Will obtain labs and will defer diagnostic imaging at this time. Will medicate with IV fluids, IV pain medication and IV antiemetics. We will continue to closely monitor. 12:00 PM 06/02/2025 (Franny Lyman PA-C): Patient feeling much better after receiving IV pain medication, IV anti emetics, and IV fluids. Overall workup today was reassuring. She had slight leukocytosis at 11.5, likely reactive, chemistry revealing no significant electrolyte derangement. CRP elevated at 0.76, urine does not appear to be infected. We will discharge patient on Augmentin. Stressed the importance of following up with the GI specialist. Also discharged on Zofran, and small course of morphine. She understands and agrees with plan. Patient stable for discharge. Differential Diagnosis Differential Diagnoses: The differential diagnosis associated with the presentation includes Diverticulitis, diverticulosis, gastritis, gastroenteritis, electrolyte derangement Lab Data [facility] Lab Attestation statement: I reviewed the patient's lab results. See [facility] 06/02/25 09:01 06/02/25 09:01 Labs: Lab Results 06/02/25 06/02/25 06/02/25 Range/Units 09:01 09:07 11:43 WBC 11.5 H (4.8-10.8) X10*3/uL RBC 4.33 (4.20-5.50) X10*6/uL Hgb 13.6 (12.0-16.0) g/dl Hct 40.6 (37.0-47.0) % MCV 93.8 (80.0-98.0) fL MCH 31.4 (27.0-33.0) pg MCHC 33.5 (31.0-35.0) g/dl RDW 11.7 (11.0-16.0) % Plt Count 130 L (160-400) X10*3/uL MPV 12.6 H (9.4-12.3) fL Immature Gran % (Auto) 0.3 (0.0-0.4) % Neut % (Auto) 90.2 H (45-73) % Lymph % (Auto) 7.3 L (20-40) % Sterling % (Auto) 1.7 L (2-11) % Eos % (Auto) 0.3 (0-4) % Baso % (Auto) 0.2 (0-2) % Lymph # (Auto) 0.8 L (1.2-4.9) X10*3/uL Sterling # (Auto) 0.2 (0.1-1.2) X10*3/uL Eos # (Auto) 0.0 (0.0-0.4) X10*3/uL Baso # (Auto) 0.0 (0.0-0.2) X10*3/uL Abs Immat Gran (auto) 0.03 (0.00-0.03) X10*3/uL Absolute Neuts (auto) 10.4 H (2.0-8.3) x10*3/uL Absolute Nucleated RBC 0.000 (0.0-0.012) X10*3/uL Nucleated RBC % (auto) 0.0 (0.0-0.2) /100WBC Smear Tech's Comments VERIFIED Sodium 141 (135-145) mmol/L Potassium 3.9 (3.3-5.1) mmol/L Chloride 108 (96-108) mmol/L Carbon Dioxide 26 (22-29) mmol/L Anion Gap 11 L (12-20) BUN 14 (9-16) mg/dL Creatinine 0.80 (0.5-1.4) mg/dL Estim Creat Clear Calc 89.3 Estimated GFR > 60 Random Glucose 118 H (60-115) mg/dL Calcium 9.2 D (8.4-10.2) mg/dL Magnesium 1.9 (1.6-2.6) mg/dL Total Bilirubin 0.4 (0.0-1.0) mg/dL Direct Bilirubin 0.1 (0.0-0.5) mg/dL AST 48 H (5-31) U/L ALT 31 (0-31) U/L Alkaline Phosphatase 88 (39-117) U/L C-Reactive Protein 0.76 H (< or = 0.50) mg/dL Total Protein 7.6 (6.5-8.0) g/dL Albumin 4.4 (3.5-5.0) g/dL Lipase 30 (8-78) U/L Urine Color Yellow Urine Appearance Clear Urine pH 6.5 (5.0-9.0) Ur Specific [place] 1.015 (1.005-1.025) Urine Protein Negative (Neg-Trace) mg/dL Urine Glucose (UA) Negative (Negative) mg/dL Urine Ketones Negative (Negative) mg/dL Urine Blood Negative (Negative) Urine Nitrite Negative (Negative) Ur Leukocyte Esterase Negative (Negative) COVID-19 (FELIX) Negative (Negative) COVID-19 Clin Com See Note Medications Administered Discontinued Medications Generic Name Dose Route Start Last Admin Trade Name Freq PRN Reason Stop Dose Admin Sodium Chloride 1,000 mls @ 999 mls/hr 06/02/25 08:53 06/02/25 10:19 Ns IV 06/02/25 09:53 Infused .Q1H1M ONE Infusion Acetaminophen 1,000 mg in 100 mls @ 400 mls/hr 06/02/25 08:52 06/02/25 09:23 Ofirmev IV 06/02/25 09:06 Infused ONCE ONE Infusion Morphine Sulfate 4 mg 06/02/25 08:52 06/02/25 09:08 Morphine Sulfate 4 Mg/Ml Cartridge IVPUSH 06/02/25 08:53 4 mg ONCE ONE Administration Protocol Ondansetron HCl 4 mg 06/02/25 08:52 06/02/25 09:08 Ondansetron Hcl 4 Mg/2 Ml Vial IVPUSH 06/02/25 08:53 4 mg ONCE ONE Administration Discharge Plan Discharge Clinical Impression: Abdominal pain Patient Disposition: Home, Self-Care Instructions: Abdominal Pain (ED) Additional Instructions: You were seen in the emergency department due to abdominal pain. Your blood work today was reassuring. We deferred imaging today. Your urine does not appear to be infected. Please take prescribed medication as directed, finish the entire course even if your symptoms improve. Morphine as a strong pain medication, reserve this for severe pain only. Please be advised that this is an addictive medication, and can cause adverse side effects including but not limited to dizziness. Do not drink alcohol or drive while taking this. We can not refill this medication you with the emergency room. Please follow-up with your GI specialist. If any new or worsening symptoms occur including but not limited to worsening pain, high fevers, chills, please seek emergent care. Drink plenty of fluids get plenty of rest. Prescriptions: New amoxicillin-pot clavulanate 875-125 mg tablet 1 tab PO BID 7 Days Qty: 14 0RF ondansetron 4 mg tablet,disintegrating 4 mg PO Q6H PRN (Reason: nausea and vomiting) Qty: 12 0RF morphine 15 mg tablet 15 mg PO Q6H Qty: 5 0RF Rx Instructions: Partial Fill upon patient request. acetaminophen [Tylenol Extra Strength] 500 mg tablet 1,000 mg PO Q8H PRN (Reason: pain) Qty: 30 0RF No Action prucalopride [Motegrity] 2 mg tablet 2 mg PO DAILY Qty: 30 0RF acetaminophen 325 mg Tablet 650 mg PO Q4H PRN (Reason: Pain) ibuprofen 200 mg Tablet 200 mg PO Q6H PRN (Reason: Pain) docusate sodium [Stool Softener] 100 mg capsule 100 mg PO BID PRN (Reason: Constipation) loratadine [Claritin] 10 mg tablet 10 mg PO DAILY PRN (Reason: Allergy Symptoms) (DME) Pads For Women Pad See Rx Instructions .Route Qty: 90 0RF Rx Instructions: As directed three daily polyethylene glycol 3350 [Miralax] 17 gram powder in packet 17 g PO DAILY Qty: 100 2RF bisacodyl [Dulcolax (bisacodyl)] 5 mg tablet,delayed release (DR/EC) 10 mg PO BEDTIME Qty: 180 4RF polyethylene glycol 3350 [Miralax] 17 gram/dose powder 238 g PO ONCE Qty: 238 0RF Rx Instructions: As directed by gastroenterology department at [facility] simethicone 180 mg capsule 180 mg PO BID PRN (Reason: abdominal distention) Qty: 180 2RF Stand Alone Forms: Work/School Release Interventions: ED Discharge Assessment Last Done: 06/02/25 12:51 Discharge Date/Time: 06/02/25 13:08 Print Language: Greek
--- NOTE | 2025-06-02 09:13 | PC.NURSE ---
patient presents to ED states she has abd pain that comes and goes, states 7/10. states she has hx of diverticulitis, and it feels similar. #20 placed in RAC. patient states pain goes to her back, patient requested extra pillow for support. medicated per NOV. resting quietly.
--- OUTSIDE RECORDS SUMMARY | 2025-06-02 09:51 | XMS_ITS | Encounter Summary ---
Author Organization [employer] Address [address] [place] [address] 7 [place] [address] Care Team Providers Care Info Analyst Name Role Phone Christelle Rondon MD Primary Care Provide r Reason for Visit * Reason Comments Med Refill Encounter Details Date Type Department Care Team ([facility] st Contact Info) Description 02/02/2025 Refill [facility] [address] [place], [place] [phone] Christelle Rondon MD [address] [place] [address] Class 3 severe obesity due to excess [...] Description 06/09/2025 3:30 PM EDT Office Visit [facility] [address] [place] [phone] Christelle Rondon MD [address] [place] [address] documented as of this encounter Visit Diagnoses Diagnosis Class 3 severe obesity due to excess calories with serious comorbidity and body mass index (BMI) of 40.0 to 44.9 in adult Other constipation documented in this encounter Additional Health Concerns Assessment Noted Time PHQ-9 Depression Total Score: 0 04/05/20 23 3:44 PM EDT documented as of this encounter Care Teams Info Analyst Relationship Specialty Start Date End Date Christelle Rondon MD [address] [place] [phone] PCP - General Family Medicine 10/11/18 documented as of this encounter
--- OUTSIDE RECORDS SUMMARY | 2025-06-02 09:51 | XMS_ITS | Encounter Summary ---
Author Organization [employer] Address [address] [place] [address] [address] [place] [address] Care Team Providers Care Health And Safety Representative Name Role Phone Christelle Rondon MD Primary Care Provide r Encounter Details Date Type Department Care Team ([facility] st Contact Info) Description 08/07/2023 Abstract [facility] MEDICINE [address] [place] [address] Marcella Reardon Social History Tobacco Use Types [...] Description 06/09/2025 3:30 PM EDT Office Visit [facility] [address] [place] [address] Christelle Rondon MD [address] [place] [address] documented as of this encounter Visit Diagnoses Not on filedocumented in this encounter Additional Health Concerns Assessment Noted Time PHQ-9 Depression Total Score: 0 04/05/20 23 3:44 PM EDT documented as of this encounter Care Teams Health And Safety Representative Relationship Specialty Start Date End Date Christelle Rondon MD [address] [place] [phone] PCP - General Family Medicine 10/11/18 Carmelita Condon Cmo 11/29/23 02/29/24 documented as of this encounter
--- OUTSIDE RECORDS SUMMARY | 2025-06-02 09:51 | XMS_ITS | Encounter Summary ---
Author Organization [employer] Address [address] [place] [address] [address] [place] [address] Care Team Providers Care Settlement Clerk Name Role Phone Christelle Rondon MD Primary Care Provide r Encounter Details Date Type Department Care Team ([facility] st Contact Info) Description 12/03/2024 Orders Only [facility] MED[facility]INE [address] [place], [place] [phone] Christelle Rondon MD [address] [place], [place] [phone] Social History Tobacco Use Types Packs/Day Years [...] t he electric, gas, oil or water [employer] threatened to shut off services in your [...] Description 06/09/2025 3:30 PM EDT Office Visit [facility] MED[facility]INE [address] [place] [phone] Christelle Rondon MD [address] [place] [address] documented as of this encounter Visit Diagnoses Not on filedocumented in this encounter Additional Health Concerns Assessment Noted Time PHQ-9 Depression Total Score: 0 04/05/20 23 3:44 PM EDT documented as of this encounter Care Teams Settlement Clerk Relationship Specialty Start Date End Date Christelle Rondon MD [address] [place] [phone] PCP - General Family Medicine 10/11/18 documented as of this encounter
--- OUTSIDE RECORDS SUMMARY | 2025-06-02 09:51 | XMS_ITS | Encounter Summary ---
Author Organization [employer] Address [address] [place] [address] Care Team Providers Care Assembly Stock Supervisor Name Role Phone Christelle Rondon MD Primary Care Provide r Reason for Visit * Reason Onset Date Comments Appointment Request 11/24/2022 Encounter Details Date Type Department Care Team (Late Contact Info) Description 11/24/2022 Telephone [facility] [address] [place] [phone] Christelle Rondon MD [address] [place] [address] Appointment Request Social History Tobacco Use Types [...] appt since last. Please contact pt at [phone] documented in this encounter Plan of Treatment Upcoming Encounters Date Type Department Care Team (Late Contact Info) Description 06/09/2025 3:30 PM EDT Office Visit [facility] [address] [place] [address] Christelle Rondon MD [address] [place], [place] [phone] documented as of this encounter Visit Diagnoses Not on filedocumented in this encounter Care Teams Assembly Stock Supervisor Relationship Specialty Start Date End Date Christelle Rondon MD [address] [place] [phone] PCP - General Family Medicine 10/11/18 Carmelita Condon [employer] [facility] 11/29/23 02/29/24 documented as of this encounter
--- OUTSIDE RECORDS SUMMARY | 2025-06-02 09:51 | XMS_ITS | Clinical Summary ---
Author Organization [employer] Address [address] [place] [address] [address] [place] [address] Care Team Providers Care Lead Manufacturing Engineering Tech Name Role Phone Christelle Rondon MD Primary Care Provide r Allergies No known active allergies Medications albuterol 108 (90 Base) MCG/ACT inhalerIndicatio ns:Chronic cough Inhale 2 puffs every 6 (six) hours if needed for wheezing. 18 g 11 5 10/17/19 26 Active Diclofenac Sodium 1 % gelIndications:M ultiple joint pain Apply 1 Application topically every 12 (twelve) hours if needed (apply on affected area if needed). 150 g 2 5 Active simethicone (Mylicon,Gas-X) 180 MG capsuleIndicatio ns:Other constipation Take 1 capsule (180 mg) by mouth every 8 (eight) hours if needed for flatulence. 90 capsule 2 5 Active FREESTYLE LITE test stripIndications :Newly diagnosed diabetes ([facility]) Use to test blood sugar 1 times daily 100 each 12 5 12/05/19 26 Active Lancets miscIndications: Newly diagnosed diabetes ([facility]) Use to test blood sugar 1 times daily 100 each 5 Active Blood Glucose Monitoring Suppl (FreeStyle Bombay Lite) w/Device kitIndications:N ewly diagnosed diabetes ([facility]) Use to test blood sugar 1 times daily 1 kit 5 Active Tirzepatide-Weig ht Management (Zepbound) 2.5 MG/0.5ML solutionIndicati ons:Class 3 severe obesity due to excess calories with serious comorbidity and body mass index (BMI) of 40.0 to 44.9 in adult Inject 2.5 mg under the skin 1 (one) time per week. 2 mL Active docusate sodium (Colace) 100 MG capsule Take 1 capsule by mouth 2 times daily. 1 Active pantoprazole (ProtoNix) 40 MG EC tablet Take 1 tablet by mouth Once per day. 5 Active polyethylene glycol, PEG, 3350 (Miralax) 17 g packet Take 17 g by mouth Once per day. 5 Active Myrbetriq 50 MG 24 hr tablet Take 1 tablet by mouth Once per day. 5 Active Prucalopride Succinate 2 MG tablet Take 1 tablet by mouth Once per day. 5 Active Alcohol Swabs (Alcohol Prep) 70 % padsIndications: Newly diagnosed diabetes ([facility]) USE TO CHECK BLOOD SUGAR DAILY 100 each 11 Active Active Problems Problem Noted Date Diagnosed [...] Encounters Date Type Department Care Team Description 06/02/2025 Orders Only GENERIC EXTERNAL DATA DEPARTMENT Provider, Generic External Data 04/10/2025 Refill [facility] [address], [place] [phone] Christelle Rondon MD Newly diagnosed diabetes ([facility]) 03/30/2025 Telephone [facility] [address], [place] [phone] Christelle Rondon MD No Show 03/27/2025 Telephone [facility] [address] [place] [address] Christelle Rondon MD Chart prep 03/02/2025 1:15 PM EDT Office Visit [facility] [address] [place] [address] Linnette Arana NP Diverticulitis (Primary Dx); Hyperglycemia; Class 3 severe obesity due to excess calories with serious comorbidity and body mass index (BMI) of 40.0 to 44.9 in adult; Drug-induced constipation 03/02/2025 Travel from Last 3 Months Immunizations Immunization Administration [...] Description 06/09/2025 3:30 PM EDT Office Visit [facility] [address] [place] [address] Christelle Rondon MD [address] [place] [address] Health Maintenance Due Date Last Done Comments [...] Mammogram 10/16/2020 10/16/2018 Lipid Panel 06/14/2021 06/14/2020 Diabetes: Hemoglobin A1C 04/16/2025 025, 09/08/2023, 01/18/2022, Additional history exists COVID-19 Vaccine ( - season) 2025 Influenza Vaccine (#1) 2025 10/11/2018 Depression Screening [...] Procedure Name Priority Date/Time Associated Diagnosis Comments COVID-19 ID NOW (SMART) Routine 06/02/2025 9:07 AM EDT LIPASE Routine 06/02/2025 9:01 AM EDT C-REACTIVE PROTEIN Routine 06/02/2025 9: 01 AM EDT MAGNESIUM Routine 06/02/2025 9:01 AM EDT BASIC METABOLIC PANEL Routine 06/02/2025 9:01 AM EDT HEPATIC FUNCTION PANEL Routine 06/02/2025 9:01 AM EDT SLIDE REVIEW Routine 06/02/2025 9:01 AM EDT CBC WITH AUTO DIFFERENTIAL Routine 06/02/2025 9:01 AM EDT POCT GLUCOSE Routine 03/02/2025 1:55 PM EDT Hyperglycemia POCT GLYCATED HEMOGLOBIN, TOTAL Routine 10/17/2024 12:08 PM EST Prediabetes HM COLONOSCOPY Routine 10/05/2022 THINPREP PAP Routine 12/31/2020 11:11 AM EDT HPV GENOTYPES 16,18/45 Routine 12/23/2020 3:11 AM EDT LIPID PANEL, STANDARD Routine 06/14/2020 8:40 AM EDT BI MAMMOGRAM SCREENING BILATERAL Routine 10/16/2018 3:56 PM EST from Last 3 Months or Most Recently Relevant to Health Maintenance Results * COVID-19 ID NOW (SMART) (06/02/2025 9:07 AM EDT) IDNOW SERIAL# [id number] [facility] COVID-19 TEST Negative Negative [facility] COVID-19 NOTE See Note [facility] Comment: Results are for the identification of SARS-CoV2 RNA. TheSARS-CoV2 RNA is generally detectable in respiratory samplesduring the acute phase of infection. Positive results areindicative of the presence of SARS-CoV-2 RNA; clinicalcorrelation with patient history and other diagnosticinformation is necessary to determine patient infectionstatus. Positive results do not rule out bacterial infectionor co- infection with other viruses.Testing facilities within the [facility] and itsterritories are required to report all positive results tothe appropriate public health authorities.Negative results should be treated as presumptive and, ifinconsistent with clinical signs and symptoms or necessaryfor patient management, should be tested with differentauthorized or cleared molecular tests. Negative results donot preclude SARS-CoV2 RNA infection and should not be usedas the sole basis for patient management decisions. Negativeresults should be considered in the context of a patient'srecent exposures, history and the presence of clinical signsand symptoms consistent with COVID-19.This test has been authorized by the FDA under an EmergencyUse Authorization (EUA) for use by authorized laboratories.Testing performed on the Smart ID NOW utilizing NAAT. 06/02/2025 9:07 AM EDT 06/02/2025 9:09 AM EDT us Generic External Data Provider LAB MOLECULAR BRIE GNOSTICS ORDERABLES Final Result [facility] [address] [place] [phone] * Slide Review (06/02/2025 9:01 AM EDT) Slide Review VERIFIED [facility] 06/02/2025 9:01 AM EDT 06/02/2025 9:05 AM EDT us Generic External Data Provider LAB BLOOD ORDERAB LES Final Result [facility] [address] [place] [phone] * (ABNORMAL) CBC auto differential (06/02/2025 9:01 AM EDT) White Blood Count 11.5(H) 4.8 - 10.8 X10*3/uL [facility] Red Blood Count 4.33 4.20 - 5.50 X10*6/uL [facility] Hemoglobin 13.6 12.0 - 16.0 g/dl [facility] Hematocrit 40.6 37.0 - 47.0 % [facility] Mean Corpuscular Volume 93.8 80.0 - 98.0 fL [facility] Mean Corpuscular Hemoglobin 31.4 27.0 - 33.0 pg [facility] Mean Corpuscular HGB Conc 33.5 31.0 - 35.0 g/dl [facility] Red Cell Distribution Width 11.7 11.0 - 16.0 % [facility] Platelet Count 130(L) 160 - 400 X10*3/uL [facility] Mean Platelet Volume 12.6(H) 9.4 - 12.3 fL [facility] Neutrophils Percent Auto 90.2(H) 45 - 73 % [facility] Imm Gran Pct Auto 0.3 0.0 - 0.4 % [facility] Lymphocytes Percent Auto 7.3(L) 20 - 40 % [facility] Monocytes Percent Auto 1.7(L) 2 - 11 % [facility] Eosinophils Percent Auto 0.3 0 - 4 % [facility] Basophils Percent Auto 0.2 0 - 2 % [facility] NRBC Pct Auto 0.0 0.0 - 0.2 /100WBC [facility] Neutrophils Absolute Auto 10.4(H) 2.0 - 8.3 x10*3/uL [facility] Imm Gran Abs Auto 0.03 0.00 - 0.03 X10*3/uL [facility] Lymphocytes Absolute Auto 0.8(L) 1.2 - 4.9 X10*3/uL [facility] Monocytes Absolute Auto 0.2 0.1 - 1.2 X10*3/uL [facility] Eosinophils Absolute Auto 0.0 0.0 - 0.4 X10*3/uL [facility] Basophils Absolute Auto 0.0 0.0 - 0.2 X10*3/uL [facility] NRBC Abs Auto 0.000 0.0 - 0.012 X10*3/uL [facility] 06/02/2025 9:01 AM EDT 06/02/2025 9:05 AM EDT Generic External Data Provider LAB BLOOD ORDERAB LES Edited Result - Final Performing Organization Address City/[facility]/ZIP Co de Phone Number [facility] [address] [place] [phone] * (ABNORMAL) C-reactive Protein (06/02/2025 9:01 AM EDT) C Reactive Protein 0.76(H) < or = 0.50 mg/dL [facility] 06/02/2025 9:01 AM EDT 06/02/2025 9:05 AM EDT us Generic External Data Provider LAB BLOOD ORDERAB LES Final Result Performing Organization Address [facility]/ZIP Co de Phone Number [facility] [address] [place] [phone] * Magnesium (06/02/2025 9:01 AM EDT) Magnesium 1.9 1.6 - 2.6 mg/dL [facility] 06/02/2025 9:01 AM EDT 06/02/2025 9:05 AM EDT us Generic External Data Provider LAB BLOOD ORDERAB LES Final Result Performing Organization Address [facility]/ZIP Co de Phone Number [facility] [address] [place] [phone] * Lipase (06/02/2025 9:01 AM EDT) [facility] Lipase 30 8 - 78 U/L [facility] 06/02/2025 9:01 AM EDT 06/02/2025 9:05 AM EDT Generic External Data Provider LAB BLOOD ORDERAB LES Final Result Performing Organization Address [facility] de Phone Number [facility] [address] [place] [phone] * (ABNORMAL) Hepatic Function Panel (06/02/2025 9:01 AM EDT) [facility] Bilirubin, Total 0.4 0.0 - 1.0 mg/dL [facility] Bilirubin, Direct 0.1 0.0 - 0.5 mg/dL [facility] Aspartate Amino Transferase 48(H) 5 - 31 U/L [facility] Alanine Aminotransferase 31 0 - 31 U/L [facility] Total Protein 7.6 6.5 - 8.0 g/dL [facility] Albumin Level 4.4 3.5 - 5.0 g/dL [facility] Alkaline Phosphatase 88 39 - 117 U/L [facility] 06/02/2025 9:01 AM EDT 06/02/2025 9:05 AM EDT us Generic External Data Provider LAB BLOOD ORDERAB LES Final Result Performing Organization Address City/[facility]/ZIP Co de Phone Number [facility] [address] [place] [phone] * (ABNORMAL) Basic Metabolic Panel (06/02/2025 9:01 AM EDT) Sodium 141 135 - 145 mmol/L [facility] Potassium 3.9 3.3 - 5.1 mmol/L [facility] Chloride 108 96 - 108 mmol/L [facility] Carbon Dioxide 26 22 - 29 mmol/L [facility] Anion Gap 11(L) 12 - 20 [facility] Urea Nitrogen (BUN) 14 9 - 16 mg/dL [facility] Creatinine, Serum 0.80 0.5 - 1.4 mg/dL [facility] Creatinine Clr Calc Pharmacy 89.3 [facility] Comment:Provided height and weight: 157.48 cm,100.7 kg.eGFR (calculated from the MDRD study equation) and eCrCl(calculated from the Cockcroft-Gault equation) are based ondifferent parameters and may not yield comparable results.If eCrCl result is absurd, please check patient'sheight/weight. Estimated Glomerular Filt Rate >60 [facility] Comment:Chronic Kidney Disea se: Estimated GFR < 60 mL/min/1.23w1Ffaccf Kidney Disease: Estimated GFR < 15 mL/min/1.73m2 Glucose 118(H) 60 - 115 mg/dL [facility] Calcium 9.2 8.4 - 10.2 mg/dL [facility] 06/02/2025 9:01 AM EDT 06/02/2025 9:05 AM EDT us Generic External Data Provider LAB BLOOD ORDERAB LES Final Result [facility] [address] [place] [phone] [phone] * POCT Glucose (03/02/2025 1:55 PM EDT) Glucose Blood, POC 123 60 - 200 mg/dL QC Media Lot # [id number] Lot# Expiration Date Blood Capillary blood specimen / Unknown 03/02/2025 1:55 PM EDT us Linnette Arana NP POINT OF CARE TEST ENTER/EDIT OR DERABLES Final Result * (ABNORMAL) POCT HGB A1C (10/17/2024 12:08 PM EST) Hemoglobin A1C 6.5(A) 4.0 - 6.0 % Blood 10/17/2024 12:0 8 PM EST us Christelle Jorge MD POINT OF CARE TEST EN TER/EDIT ORDERABLES Final Result * Colonoscopy (10/05/2022) Colonoscopy Normal Normal Narrative Marcella Reardon - [...] along with historic and current clinical information. Soft Work Wrapper Examiner : SEE COMMENT [facility] Comment: NSS, CT(ASCP) CT screening location: [place] [address] Interpretation/R esult: Negative for intraepithelial lesion or malignancy. [facility] LMP: NONE [facility] Prev. BX: NONE [facility] Prev. PAP: NONE [facility] SOURCE: NONE [facility] Statement Of Adequacy: SEE COMMENT [facility] Comment: Satisfactory for evaluation. Endocervical/transformation zone component present. Age and/or menstrual status not provided 12/31/2020 11:1 1 AM EDT us Christelle Jorge MD LAB PATHOLOGY ORDERAB LES Final Result Performing Organization Address [facility] Phone Number [facility] [address] * HPV GENOTYPES 16,18/45 (12/23/2020 3:11 AM EDT) HPV 16 RNA NOT DETECTED NOT DETECTED [facility] HPV 18/45 RNA NOT DETECTED NOT DETECTED [facility] Comment: Methodology: Sandwich Machine Operator Mediated Amplification The analytical performance characteristics of this assay have been determined by [email or web address]. The modifications have not been cleared or [...] ORDERABL ES Final Result Performing Organization Address [facility] Phone Number [facility] [address] * (ABNORMAL) LIPID PANEL, STANDARD (06/14/2020 [...] factors. LDL-C is now calculated using the Asim calculation, which is a validated novel method providing better accuracy than the Friedewald equation in the estimation of LDL-C. Arvind ALFARO et al. TINO. 2013;310(19): 9221-1275 (http://education.Covocative/faq/AVI985) Chol/HDLC Ratio 6.7(H) <5.0 (calc) [facility] LDL Cholesterol 162(H) mg/dL (calc) [facility] Comment: Reference range: <100 Desirable range <100 mg/dL for primary prevention; <70 mg/dL for patients with CHD or diabetic patients with > or = 2 CHD risk factors. LDL-C is now calculated using the Asim calculation, which is a validated novel method providing better accuracy than the Friedewald equation in the estimation of LDL-C. Arvind ALFARO et al. TINO. 2013;310(19): 5546-7907 (http://education.Covocative/faq/XIU087) HDL Cholesterol 34(L) > OR = 50 [...] Final Result [facility] [address] [place] [address], * DIGITAL BILATERAL SCREEN 1 (10/16/2018 3:56 [...] Most Recently Relevant to Health Maintenance Insurance [address] [place], [place] [address] Care Teams Lead Manufacturing Engineering Tech Relationship Specialty Start Date End Date Christelle Rondon MD [address] [place] [phone] PCP - General Family Medicine 10/11/18
--- OUTSIDE RECORDS SUMMARY | 2025-06-02 09:51 | XMS_ITS | Encounter Summary ---
Author Organization [employer] Address [address] [place] [address] 7 [place] [address] Care Team Providers Care Tableau Lead Name Role Phone Christelle Rondon MD Primary Care Provide r Encounter Details Date Type Department Care Team (Late st Contact Info) Description 06/02/2025 Orders Only GENERIC EXTERNAL DATA [...] Description 06/09/2025 3:30 PM EDT Office Visit [facility] [address] [place] [address] Christelle Rondon MD [address] [place] [address] documented as of this encounter Procedures Procedure Name Priority Date/Time Associated Diagnosis Comments COVID-19 ID NOW (SMART) Routine 06/02/2025 9:07 AM EDT SLIDE REVIEW Routine 06/02/2025 9:01 AM EDT CBC WITH AUTO DIFFERENTIAL Routine 06/02/2025 9:01 AM EDT C-REACTIVE PROTEIN Routine 06/02/2025 9: 01 AM EDT MAGNESIUM Routine 06/02/2025 9:01 AM EDT LIPASE Routine 06/02/2025 9:01 AM EDT HEPATIC FUNCTION PANEL Routine 06/02/2025 9:01 AM EDT BASIC METABOLIC PANEL Routine 06/02/2025 9:01 AM EDT documented in this encounter Results * COVID-19 ID NOW (SMART) (06/02/2025 9:07 AM EDT) IDNOW SERIAL# [id number] [facility] COVID-19 TEST Negative Negative [facility] COVID-19 NOTE See Note [facility] Comment: Results are for the identification of SARS-CoV2 RNA. TheSARS-CoV2 RNA is generally detectable in respiratory samplesduring the acute phase of infection. Positive results areindicative of the presence of SARS-CoV-2 RNA; clinicalcorrelation with patient history and other diagnosticinformation is necessary to determine patient infectionstatus. Positive results do not rule out bacterial infectionor co- infection with other viruses.Testing facilities within the [facility] and itsterritories are required to report all [...] use by authorized laboratories.Testing performed on the [employer] ID NOW utilizing NAAT. 06/02/2025 9:07 AM EDT 06/02/2025 9:09 AM EDT Generic External Data Provider LAB MOLECULAR BRIE GNOSTICS ORDERABLES Final Result Performing Organization Address [facility]/ZIP Co de Phone Number [facility] [address] [place] [phone] * Lipase (06/02/2025 9:01 AM EDT) Lipase 30 8 - 78 U/L [facility] 06/02/2025 9:01 AM EDT 06/02/2025 9:05 AM EDT Generic External Data Provider LAB BLOOD ORDERAB LES Final Result Performing Organization Address [facility] Co de Phone Number [facility] [address] [place] [phone] * (ABNORMAL) C-reactive Protein (06/02/2025 9:01 AM EDT) Pathologist [facility] C Reactive Protein 0.76(H) < or = 0.50 mg/dL [facility] 06/02/2025 9:01 AM EDT 06/02/2025 9:05 AM EDT Generic External Data Provider LAB BLOOD ORDERAB LES Final Result Performing Organization Address [facility] Co de Phone Number [facility] [address] [place] [phone] * Magnesium (06/02/2025 9:01 AM EDT) [facility] Magnesium 1.9 1.6 - 2.6 mg/dL [facility] 06/02/2025 9:01 AM EDT 06/02/2025 9:05 AM EDT [employer] External Data Provider LAB BLOOD ORDERAB LES Final Result Performing Organization Address [facility] de Phone Number [facility] [address] [place] [phone] * (ABNORMAL) Basic Metabolic Panel (06/02/2025 9:01 AM EDT) [facility] Sodium 141 135 - 145 mmol/L [facility] Potassium 3.9 3.3 - 5.1 mmol/L [facility] Chloride 108 96 - 108 mmol/L [facility] Carbon Dioxide 26 22 - 29 mmol/L [facility] Anion Gap 11(L) 12 - 20 [facility] Urea Nitrogen (BUN) 14 9 - 16 mg/dL [facility] Creatinine, Serum 0.80 0.5 - 1.4 mg/dL [facility] Creatinine Clr Calc Pharmacy 89.3 [facility] Comment:Provided height and weight: 157.48 cm,100.7 kg.eGFR (calculated from the MDRD study equation) and eCrCl(calculated from the Cockcroft-Gault equation) are based ondifferent parameters and may not yield comparable results.If eCrCl result is absurd, please check patient'sheight/weight. Estimated Glomerular Filt Rate >60 [facility] Comment:Chronic Kidney Disea se: Estimated GFR < 60 mL/min/1.53o4Vgrznn Kidney Disease: Estimated GFR < 15 mL/min/1.73m2 Glucose 118(H) 60 - 115 mg/dL [facility] Calcium 9.2 8.4 - 10.2 mg/dL [facility] 06/02/2025 9:01 AM EDT 06/02/2025 9:05 AM EDT Generic External Data Provider LAB BLOOD ORDERAB LES Final Result Performing Organization Address [facility] Co de Phone Number [facility] [address] [place] [phone] * (ABNORMAL) Hepatic Function Panel (06/02/2025 9:01 AM EDT) Bilirubin, Total 0.4 0.0 - 1.0 mg/dL [facility] Bilirubin, Direct 0.1 0.0 - 0.5 mg/dL [facility] Aspartate Amino Transferase 48(H) 5 - 31 U/L [facility] Alanine Aminotransferase 31 0 - 31 U/L [facility] Total Protein 7.6 6.5 - 8.0 g/dL [facility] Albumin Level 4.4 3.5 - 5.0 g/dL [facility] Alkaline Phosphatase 88 39 - 117 U/L [facility] 06/02/2025 9:01 AM EDT 06/02/2025 9:05 AM EDT Generic External Data Provider LAB BLOOD ORDERAB LES Final Result Performing Organization Address [facility] Co de Phone Number [facility] [address] [place] [phone] * Slide Review (06/02/2025 9:01 AM EDT) Slide Review VERIFIED [facility] 06/02/2025 9:01 AM EDT 06/02/2025 9:05 AM EDT us Generic External Data Provider LAB BLOOD ORDERAB LES Final Result [facility] [address] [place] [phone] * (ABNORMAL) CBC auto differential (06/02/2025 9:01 AM EDT) White Blood Count 11.5(H) 4.8 - 10.8 X10*3/uL [facility] Red Blood Count 4.33 4.20 - 5.50 X10*6/uL [facility] Hemoglobin 13.6 12.0 - 16.0 g/dl [facility] Hematocrit 40.6 37.0 - 47.0 % [facility] Mean Corpuscular Volume 93.8 80.0 - 98.0 fL [facility] Mean Corpuscular Hemoglobin 31.4 27.0 - 33.0 pg [facility] Mean Corpuscular HGB Conc 33.5 31.0 - 35.0 g/dl [facility] Red Cell Distribution Width 11.7 11.0 - 16.0 % [facility] Platelet Count 130(L) 160 - 400 X10*3/uL [facility] Mean Platelet Volume 12.6(H) 9.4 - 12.3 fL [facility] Neutrophils Percent Auto 90.2(H) 45 - 73 % [facility] Imm Gran Pct Auto 0.3 0.0 - 0.4 % [facility] Lymphocytes Percent Auto 7.3(L) 20 - 40 % [facility] Monocytes Percent Auto 1.7(L) 2 - 11 % [facility] Eosinophils Percent Auto 0.3 0 - 4 % [facility] Basophils Percent Auto 0.2 0 - 2 % [facility] NRBC Pct Auto 0.0 0.0 - 0.2 /100WBC [facility] Neutrophils Absolute Auto 10.4(H) 2.0 - 8.3 x10*3/uL [facility] Imm Gran Abs Auto 0.03 0.00 - 0.03 X10*3/uL [facility] Lymphocytes Absolute Auto 0.8(L) 1.2 - 4.9 X10*3/uL [facility] Monocytes Absolute Auto 0.2 0.1 - 1.2 X10*3/uL [facility] Eosinophils Absolute Auto 0.0 0.0 - 0.4 X10*3/uL [facility] Basophils Absolute Auto 0.0 0.0 - 0.2 X10*3/uL [facility] NRBC Abs Auto 0.000 0.0 - 0.012 X10*3/uL [facility] 06/02/2025 9:01 AM EDT 06/02/2025 9:05 AM EDT us Generic External Data Provider LAB BLOOD ORDERAB LES Edited Result - Final [facility] [address] [place] [phone] documented in this encounter Visit Diagnoses Not on filedocumented in this encounter Additional Health Concerns Assessment Noted Time PHQ-9 Depression Total Score: 0 04/05/20 23 3:44 PM EDT documented as of this encounter Care Teams Tableau Lead Relationship Specialty Start Date End Date Christelle Rondon MD [address] [place] [phone] PCP - General Family Medicine 10/11/18 documented as of this encounter
[2025-06-02 10:11] VITALS: BP 95/55; PULSE 89; RESP 16; O2SAT 95
[2025-06-02 11:43] VITALS: BP 97/57; PULSE 81; RESP 18; TEMP 36.6; O2SAT 94
[2025-06-02 11:55] LABS: Appearance Urine Clear; Glucose Urine UA Negative (Negative); PH 6.5 (5.0-9.0); Specific Gravity - Urine 1.015 (1.005-1.025)
[2025-06-02 12:51] VITALS: BP 97/57; PULSE 81; RESP 18; TEMP 36.6; O2SAT 94
== END 2025-06-02 13:08 | disposition home or self-care (01) ==
PROVIDERS: Emergency Provider Emergency Medicine; PCP Internal Medicine
DX: M54.50 Low back pain, unspecified (principal); R11.0 Nausea; Z11.52 Encounter for screening for COVID-19; Z79.899 Other long term (current) drug therapy
CPT/HCPCS: 80048; 80076; 81003; 83690; 83735; 85025; 86140; 87635; 96361; 96374; 96375; 99284; 99285; J0131; J2270; J2405